=== PATIENT | male | born 1955 | race Caucasian/White ===

== ENCOUNTER 2016-06-07 21:39 | Inpatient (IN) | payer BC ==
[~2016-06-07] VITALS: Ht 172.7 cm; Wt 81.8 kg
[~2016-06-07 21:39] MED LIST: ADV25050 INH; ALBU8.5H3 INH; ASPI81TA3 PO; FURO-110 PO; GABA300C16 PO; LANT3I SC; LISI20TA11 PO; METF500T PO; METO25TA7 PO; PRED20TA PO
[2016-06-07 22:00] VITALS: BP 174/75; PULSE 98; RESP 18
[2016-06-07 22:12] VITALS: PULSE 100
[2016-06-07] MEDS: SOD CHLORIDE 0.9% 1,000 ML IV SCH (22:34)
[2016-06-07 23:00] VITALS: Ht 172.7 cm; Wt 81.8 kg
[2016-06-07] MEDS ORDERED: FUROSEMIDE 40 MG INJ IV ONE (23:00)
[2016-06-07] MEDS ORDERED: DOCUSATE SODIUM 100 MG CAP PO PRN (23:00)
[2016-06-07] MEDS ORDERED: ONDANSETRON 4 MG INJ IV PRN (23:00)
[2016-06-07] MEDS ORDERED: GLUCOSE GEL 15 GRAM TUBE BUCCAL PRN (23:00)
[2016-06-07] MEDS ORDERED: ALBUTEROL/IPRATROPIUM (NEB) 3 ML AMP HHN PRN (23:00)
[2016-06-07] MEDS ORDERED: NACL 0.9% 3 ML SYG IV SCH (23:00)
[2016-06-07] MEDS ORDERED: NITROGLYCERIN (SL) 0.4 MG TAB SL PRN (23:00)
[2016-06-07] MEDS ORDERED: morphine 2 MG INJ IV PRN (23:00)
[2016-06-07] MEDS ORDERED: GLUCAGON 1 MG INJ IM PRN (23:00)
[2016-06-07] MEDS ORDERED: GLUCOSE GEL 15 GRAM TUBE PO PRN ×2 (23:00)
[2016-06-07] MEDS ORDERED: LORAZEPAM 2 MG INJ IV PRN (23:00)
[2016-06-07] MEDS ORDERED: DEXTROSE 50% 50 ML SYRINGE IV PRN ×2 (23:00)
--- NOTE | 2016-06-07 23:15 | HP ---
Date/Time of Note Date/Time of Note DATE: 06/07/16 TIME: 22:41 Assessment/Plan VTE Prophylaxis VTE Prophylaxis Intervention: heparin Assessment/Plan Assessment/Plan 61 yo male with a past medical history of type II DM, recurrent pleural effusions, essential hypertension, diabetic neuropathy, cardiomyopathy with EF of 60%, CAD, CHF with diastolic dysfunction, who presents with shortness of breath 1 week duration. 1. Acute hypoxemic respiratory failure - 2/2 to #2/3, will admit the patient to telemetry, cycle cardiac marker, recheck ECHO, consult Pulm/cardio/CT surgery, ABG in am, thoracentesis in am 2. Large right recurrent pleural effusion - thoracentesis in am, supplemental oxygen, possible need for decortication/VATS 3. COPD exac - will continue with duonebs, antibiotics as tolerated 4. CHF - diastolic dysfunction - possible acute on chronic exacerbation - lasix as tolerated 5. Type II DM - ISS, hgba1c, lantus 6. Essential hypertension - uncontrolled, continue with home medications, aspirin 7. Diabetic neuropathy - continue with gabapentin 8. Cardiomyopathy - repeat echo 9. GI ppx - pepcid 10. DVT ppx - heparin answered all of his questions, as per clinical course. this history and physical took greater then 45 minutes to complete HPI/ROS Admit Date/Time Admit Date/Time Jun 07, 2016 at 21:39 Hx of Present Illness 61 yo male with a past medical history of type II DM, recurrent pleural effusions, essential hypertension, diabetic neuropathy, cardiomyopathy with EF of 60%, CAD, CHF with diastolic dysfunction, who presents with shortness of breath 1 week duration. He states that it's progressively getting worse, was admitted in 04/2016 for the same reason. At time, he had to undergo a right thoracentesis. He also complains of pleuritic chest pain, fevers/chills, nausea with vomiting NBNB multiple times, and malaise. Otherwise denies any dizziness, loss of consciousness, cardiac chest pain or other constitutional symptoms. The patient went to a [facility] and was transferred here for insurance purposes. Labs: Gluc 164, BNP 583 CTA chest: negative for PE, right large pleural effusion with compressive consolidation, left minimal pleural effusion, atherosclerotic disease noted ECHO 02/08/16 Conclusions 1. Normal left ventricular cavity size. Mild concentric left ventricular hypertrophy. Ejection fraction is visually estimated at 60 %. 2. Normal right ventricular size. Normal right ventricular systolic function. 3. Mitral valve leaflets appear mildly thickened. Mild mitral annular calcification, trace mitral regurgitation. 4. Normal appearance of the aortic valve. No significant aortic stenosis or insufficiency. 5. Normal appearance of the tricuspid valve. Estimated peak PA systolic pressure 47 mmHg. There is mild tricuspid regurgitation. 6. Normal pericardium with no significant pericardial effusion. ROS 14 point review of systems completed, please refer to HPI for any positive findings PMH/Family/Social Past Medical History cardiomyopathy - EF 60%, recurrent right pleural effusion Medical History: congestive heart failure, coronary artery disease, diabetes, hypertension Past Surgical History s/p thoracentesis Family History Significant Family History: no pertinent family hx Social History Alcohol Use: none Smoking Status: Former smoker Drug Use: none Exam/Review of Systems Exam Exam Gen Mike: mild to moderate respiratory distress, AAOx4 HEENT: NC/AT, PERRLA, EOMI, no pharyngeal erythema, no tonsillar exudates, no lymphadenopathy, no JVD, no carotid bruits NECK: supple, no thyromegaly THORAX: symmetrical, no obvious deformities CV: S1S2, RRR, no M/G/R Lungs: right lung no aeration, left lung scattered rhonchi, with basilar crackles Abd: soft, NT/ND, +BS, no rebound, no guarding, neg HSM EXT: trace edema, no ecchymosis, no clubbing, FROM Neuro: CN II-XII grossly intact, no focal deficits Psych: good mentation, alert and oriented, good mood and affect Skin: C/D/I Medications Medications Current Medications Sodium Chloride (NS) 1,000 ml @ 30 mls/hr Q24H IV ; Start 06/07/16 at 22:34; Status UNV Lorazepam (Ativan) 0.5 mg Q6H PRN IV ANXIETY; Start 06/07/16 at 23:00; Status UNV Ondansetron HCl (Zofran Inj) 4 mg Q6H PRN IV NAUSEA AND/OR VOMITING; Start at 23:00; Status UNV Furosemide (Lasix) 40 mg ONCE ONCE IV ; Start 06/07/16 at 23:00; Stop 06/07/16 at 23:01; Status UNV Nitroglycerin (Nitroglycerin (Sl Tab) 0.4 Mg) 1 tab Q5M PRN SL CHEST PAIN; Start 06/07/16 at 23:00; Status UNV Acetaminophen (Tylenol Tab) 650 mg Q6H PRN PO PAIN LEVEL 1-3 OR FEVER; Start at 23:00; Status UNV Morphine Sulfate (morphine) 2 mg Q4H PRN IV PAIN LEVEL 7-10; Start 06/07/16 at 23:00; Status UNV Docusate Sodium (Colace) 100 mg Q12H PRN PO CONSTIPATION; Start 06/07/16 at 23: 00; Status UNV Famotidine (Pepcid Iv) 20 mg Q12 IV ; Start 06/08/16 at 09:00; Status UNV Heparin Sodium (Porcine) (Heparin (5000 Units/0.5 ml)) 5,000 unit Q12 SC ; Start 06/08/16 at 09:00; Status UNV Miscellaneous Information (* Miscellaneous Pharmacy Order) HYPOGLYCEMIA PROTOCOL w... ONCE ONCE XX ; Start 06/07/16 at 23:00; Stop 06/07/16 at 23:01; Status UNV Miscellaneous Information (* Miscellaneous Pharmacy Order) Discontinue Glyburide , Glipizide,... ONCE ONCE XX ; Start 06/07/16 at 23:00; Stop 06/07/16 at 23:01 ; Status UNV Miscellaneous Information (* Miscellaneous Pharmacy Order) Discontinue all previ... ONCE ONCE XX ; Start 06/07/16 at 23:00; Stop 06/07/16 at 23:01; Status UNV Aspirin (Aspirin) 81 mg DAILY PO ; Start 06/08/16 at 09:00; Status UNV Furosemide (Lasix) 40 mg DAILY PO ; Start 06/08/16 at 09:00; Status UNV Gabapentin (Neurontin) 300 mg TID PO ; Start 06/08/16 at 09:00; Status UNV DEREJE MAYORGA MD Jun 07, 2016 22:51
[2016-06-07 23:26] LABS: TROPONIN-I 0.027 ng/ml (0.00-0.12)
[2016-06-07 23:28] LABS: CK-MB 2.57 ng/ml (0.0-2.4)
[2016-06-07 23:44] LABS: MAGNESIUM 1.4 mg/dl (1.7-2.5)
[2016-06-07 23:45] LABS: CHOL/HDL RATIO 3.4 RATIO
[2016-06-08] VITALS (13 sets, daily range): BP systolic 102–159; BP diastolic 51–78; PULSE 87–105; RESP 16–20
[2016-06-08 00:15] LABS: THYROID STIMULATING HORMONE 1.1 MIU/L (0.465-4.680)
[2016-06-08] MEDS: ACCUCHECK XX SCH (02:00)
[2016-06-08] MEDS ORDERED: MAGNESIUM SULFATE 3 GM in SOD CHLORIDE 0.9% 100 ML IVPB ONE (03:00)
[2016-06-08 06:31] LABS: INR 1.06; PROTIME 13.8 Sec (12.2-14.2); PT RATIO 1.1
[2016-06-08 06:32] LABS: PARTIAL THROMBOPLASTIN TIME 32.1 Sec (25.0-35.0)
[2016-06-08 06:39] LABS: BASOPHILS % 0.2 % (0.0-2.0); HEMATOCRIT 37.6 % (42.0-52.0); HEMOGLOBIN 12.7 g/dl (14.0-18.0); LYMPHOCYTES # 0.7 10^3/ul (0.8-2.9); LYMPHOCYTES % 9.1 % (15.0-51.0); MEAN CORPUSCULAR HEMOGLOBIN 28.4 pg (29.0-33.0); MEAN CORPUSCULAR HGB CONC 33.9 g/dl (32.0-37.0); MEAN CORPUSCULAR VOLUME 83.7 fl (82.0-101.0); MEAN PLATELET VOLUME 8.8 fl (7.4-10.4); MONOCYTES % 0.5 % (0.0-11.0); NEUTROPHIL # 6.9 10^3/ul (1.6-7.5); NEUTROPHILS % 90.2 % (39.0-77.0); PLATELET COUNT 277 10^3/UL (140-440); RED BLOOD COUNT 4.49 10^6/ul (4.70-6.10); RED CELL DISTRIBUTION WIDTH 14.2 % (11.5-14.5); UNCORRECTED WBC 7.7 10^3/ul (4.8-10.8); WHITE BLOOD COUNT 7.7 10^3/ul (4.8-10.8)
[2016-06-08 06:43] LABS: POTASSIUM 4.2 mmol/L (3.5-5.1)
[2016-06-08 06:45] LABS: CREATININE 0.71 mg/dl (0.61-1.24)
[2016-06-08 06:46] LABS: CALCIUM 9.4 mg/dl (8.4-10.2)
[2016-06-08 06:54] LABS: CONDITION 1; LH ANALYZER COMMENTS 1
[2016-06-08 07:46] LABS: CK-MB 2.42 ng/ml (0.0-2.4); TROPONIN-I 0.024 ng/ml (0.00-0.12)
[2016-06-08] MEDS: SALMETEROL/FLUTICASONE 250/50 INHA INH SCH ×2 (08:46→21:31)
[2016-06-08] MEDS: GABAPENTIN 300 MG CAP PO SCH ×3 (08:46→21:33)
[2016-06-08] MEDS: ASPIRIN 81 MG TAB PO SCH (08:47)
[2016-06-08] MEDS: LISINOPRIL 20 MG TAB PO SCH (08:47)
[2016-06-08] MEDS: METOPROLOL (XL) 25 MG TAB PO SCH ×2 (08:48→21:33)
[2016-06-08] MEDS: INSULIN ASPART [NOVOLOG] 3 ML PEN SC SCH ×4 (08:54→21:42)
[2016-06-08] MEDS: FAMOTIDINE 20 MG INJ IV SCH ×2 (09:00→21:31)
[2016-06-08] MEDS: HEPARIN 5,000 UNIT/0.5 ML SYG SC SCH ×2 (09:00→22:19)
[2016-06-08] MEDS ORDERED: FUROSEMIDE 20 MG TAB PO SCH (09:00)
--- NOTE | 2016-06-08 13:25 | CONS ---
DATE OF ADMISSION: 06/07/2016 DATE OF CONSULTATION: PULMONARY CONSULTATION REASON FOR CONSULTATION: Shortness of breath. Thank you, Dr. Blake, for this consultation. HISTORY OF PRESENT ILLNESS: This is a 61-year-old gentleman with what appears to be, history of con gestive cardiac failure who presents with several-day history of increasing shortness of breath, ort hopnea, PND, and found to be in congestive cardiac failure on this admission requiring possible thor acentesis. Says he has shortness of breath on exertion. Denies any fever, chills. He has orthopne a and PND. No weight loss, no hemoptysis or hematemesis. PAST MEDICAL HISTORY: Type 2 diabetes, congestive cardiac failure with preserved ejection fraction, diastolic dysfunction, hypertension, hyperlipidemia. MEDICATIONS: Per chart. ALLERGIES: NONE. SOCIAL HISTORY: Nonsmoker, no alcohol, no history of drug use. FAMILY HISTORY: Noncontributory. SYSTEMS REVIEW: A 12-point review of systems was negative other than that mentioned above. PHYSICAL EXAMINATION: GENERAL: Well-nourished, well-developed [place] gentleman, comfortable at rest, no acute distress. VITAL SIGNS: Currently afebrile, pulse is 87, blood pressure 140/65, O2 saturation 96% on FIO2 of 2 L. NECK: Supple. No JVD or lymphadenopathy. CARDIAC: S1, S2, no added sounds or murmurs. CHEST: Diminished air entry bilaterally. ABDOMEN: Soft, nontender. No guarding or rebound. EXTREMITIES: No cyanosis, clubbing, edema. NEUROLOGIC: Generalized weakness. LABORATORY DATA: White count 7.7, hemoglobin is 12.7, platelets 277, glucose elevated at 288. Chem istry within normal limits. IMPRESSION AND PLAN: 1. Dyspnea, likely secondary to congestive cardiac failure. 2. Diastolic dysfunction. 3. Possible noncompliance. The patient will require: 1. Diuretics. 2. Cardiology evaluation. 3. Possible thoracentesis. 4. DVT and GI prophylaxis. Dictated By: KEYSHA JONES/DANIAL Conf#: [id number] DID#: [id number]
--- NOTE | 2016-06-08 15:22 | PN ---
Date/Time of Note Date/Time of Note DATE: 06/08/16 TIME: 15:20 Assessment/Plan VTE Prophylaxis VTE Prophylaxis Intervention: heparin Lines/Catheters IV C[facility]ter Type [facility]from [facility] Urinary Cath still in place: No Assessment/Plan Chief Complaint/Hosp Course 1. Acute hypoxemic respiratory failure - 2/2 to #2/3 -cycle cardiac marker, recheck ECHO, consult Pulm/cardio, ABG in am, thoracentesis 2. Large right recurrent pleural effusion - thoracentesis, supplemental oxygen, possible need for decortication/VATS, D/W Pulm 3. COPD exac - will continue with duonebs, antibiotics as tolerated 4. CHF - diastolic dysfunction - possible acute on chronic exacerbation - lasix as tolerated 5. Type II DM - ISS, hgba1c, lantus 6. Essential hypertension - uncontrolled, continue with home medications, aspirin 7. Diabetic neuropathy - continue with gabapentin 8. Cardiomyopathy - repeat echo 9. GI ppx - pepcid 10. DVT ppx - heparin Problems: Subjective 24 Hr Interval Summary Constitutional: no complaints Exam/Review of Systems Vital Signs Vitals Vital Signs Date Time Temp Pulse Resp B/P Pulse Ox O2 Delivery O2 Flow Rate FiO2 06/08/16 12:39 87 06/08/16 12:22 98.2 20 140/65 92 06/08/16 00:03 Aerosol 28 06/08/16 00:03 2.0 Intake and Output 06/07/16 06/07/16 06/08/16 15:00 23:00 07:00 Output Total 700 ml Balance -700 ml Exam Constitutional: alert, oriented Respiratory: clear to auscultation Cardiovascular: regular rate and rhythm Gastrointestinal: soft, No distended Musculoskeletal: nl extremities to inspection Results Result Diagram: 06/08/16 0540 06/08/16 0540 Results 24 hrs Laboratory Tests Test 06/07/16 22:50 06/08/16 02:03 06/08/16 05:40 06/08/16 08:00 Cholesterol Level 157 Cholesterol/HDL Ratio 3.4 Creatine Kinase 57 48 Creatine Kinase Index 4.5 5.0 Creatinine Kinase MB (Mass) 2.57 H 2.42 H HDL Cholesterol 46 Hemoglobin A1c 8.8 H LDL Cholesterol, Calculated 92 Magnesium Level 1.4 L Thyroid Stimulating Hormone (TSH) 1.100 Triglycerides Level 96 Troponin I 0.027 0.024 Bedside Glucose 268 H 348 H Activated Partial Thromboplast Time 32.1 Anion Gap 16 Basophils # 0.0 Basophils % 0.2 Blood Morphology Comment Blood Urea Nitrogen 18 Calcium Level 9.4 Carbon Dioxide Level 30 Chloride Level 98 Creatinine 0.71 Eosinophils # 0.0 Eosinophils % 0.0 Glucose Level 325 H Hematocrit 37.6 L Hemoglobin 12.7 L INR International Normalized Ratio 1.06 Lymphocytes # 0.7 L Lymphocytes % 9.1 L Mean Corpuscular Hemoglobin 28.4 L Mean Corpuscular Hemoglobin Concent 33.9 Mean Corpuscular Volume 83.7 Mean Platelet Volume 8.8 Monocytes # 0.0 L Monocytes % 0.5 Neutrophils # 6.9 Neutrophils % 90.2 H Nucleated Red Blood Cells # 0.0 Nucleated Red Blood Cells % 0.0 Platelet Count 277 Potassium Level 4.2 Prothrombin Time 13.8 Prothrombin Time Ratio 1.1 Red Blood Count 4.49 L Red Cell Distribution Width 14.2 Sodium Level 140 White Blood Count 7.7 # Test 06/08/16 12:08 Bedside Glucose 288 H Medications Medications Current Medications Sodium Chloride (NS) 1,000 ml @ 30 mls/hr Q24H IV Last administered on 22:34; Admin Dose 30 MLS/HR; Start 06/07/16 at 22:34 Lorazepam (Ativan) 0.5 mg Q6H PRN IV ANXIETY; Start 06/07/16 at 23:00 Ondansetron HCl (Zofran Inj) 4 mg Q6H PRN IV NAUSEA AND/OR VOMITING; Start at 23:00 Nitroglycerin (Nitroglycerin (Sl Tab) 0.4 Mg) 1 tab Q5M PRN SL CHEST PAIN; Start 06/07/16 at 23:00 Acetaminophen (Tylenol Tab) 650 mg Q6H PRN PO PAIN LEVEL 1-3 OR FEVER; Start at 23:00 Morphine Sulfate (morphine) 2 mg Q4H PRN IV PAIN LEVEL 7-10; Start 06/07/16 at 23:00 Docusate Sodium (Colace) 100 mg Q12H PRN PO CONSTIPATION; Start 06/07/16 at 23: 00 Famotidine (Pepcid Iv) 20 mg Q12 IV Last administered on 06/08/16 09:00; Admin Dose 20 MG; Start 06/08/16 at 09:00 Heparin Sodium (Porcine) (Heparin (5000 Units/0.5 ml)) 5,000 unit Q12 SC ; Start 06/08/16 at 09:00 Aspirin (Aspirin) 81 mg DAILY PO Last administered on 06/08/16 08:47; Admin Dose 81 MG; Start 06/08/16 at 09:00 Gabapentin (Neurontin) 300 mg TID PO Last administered on 06/08/16 12:36; Admin Dose 300 MG; Start 06/08/16 at 09:00 Insulin Glargine (Lantus) 30 unit QHS SC ; Start 06/08/16 at 21:00 Lisinopril (Zestril) 20 mg DAILY PO Last administered on 06/08/16 08:47; Admin Dose 20 MG; Start 06/08/16 at 09:00 Metoprolol Succinate (Toprol Xl) 25 mg BID PO Last administered on 06/08/16 08 :48; Admin Dose 25 MG; Start 06/08/16 at 09:00 Salmeterol Xinafoate/ Fluticasone (Advair 250/50 Diskus) 1 inh BID INH Last administered on 06/08/16 08:46; Admin Dose 1 INH; Start 06/08/16 at 09:00 Diagnostic Test (Pha) (Accucheck) 1 ea 02 XX ; Start 06/08/16 at 02:00 Miscellaneous Information 1 ea NOTE XX ; Start 06/07/16 at 23:00 Glucose (Glutose) 15 gm Q15M PRN PO DECREASED GLUCOSE; Start 06/07/16 at 23:00 Glucose (Glutose) 22.5 gm Q15M PRN PO DECREASED GLUCOSE; Start 06/07/16 at 23: 00 Dextrose (D50w Syringe) 25 ml Q15M PRN IV DECREASED GLUCOSE; Start 06/07/16 at 23:00 Dextrose (D50w Syringe) 50 ml Q15M PRN IV DECREASED GLUCOSE; Start 06/07/16 at 23:00 Glucagon (Glucagen) 1 mg Q15M PRN IM DECREASED GLUCOSE; Start 06/07/16 at 23:00 Glucose (Glutose) 15 gm Q15M PRN BUCCAL DECREASED GLUCOSE; Start 06/07/16 at 23 :00 Hydralazine HCl (Apresoline) 10 mg Q6H PRN IV sbp > 160; Start 06/07/16 at 23: 30 JOSE MAZARIEGOS Jun 08, 2016 15:22
[2016-06-08] MEDS ORDERED: LIDOCAINE 1% (MPF) 5 ML VIAL ONE (17:19)
--- NOTE | 2016-06-08 17:33 | RADRPT ---
PROCEDURE: US guided right thoracentesis. CLINICAL INDICATION: Shortness of breath. Right pleural effusion. TECHNIQUE: Prior to the procedure, informed consent was obtained. The risks, benefits, and alternatives were e xplained to the patient or the patient's family, including but not limited to bleeding, infection, p ain, visceral or vascular damage, shock, pneumothorax, chest tube placement, air embolism, and . The patient or the patient's family understood the risks and the alternatives and wished to proce ed with the study. Informed written consent was obtained. A procedural pause was performed. The patient's name, date of , and procedure to be performed were verified. Ultrasound of the right hemithorax was performed in the axial and sagittal planes. A right pleural e ffusion is noted. Utilizing ultrasound guidance, optimal location for entry to the pleural cavity wa s ascertained. The overlying skin was prepped and draped in the usual sterile fashion. Approximate ly 10 ml of 1% Xylocaine was injected locally for pain control. Using ultrasound guidance, a 5-Fren Yueh catheter was introduced into the right pleural space without difficulty. Fluid was aspirated . COMPARISON: None. FINDINGS: Initial ultrasound demonstrates fluid in the right pleural space. Approximately 2.0 liters of serou s fluid was aspirated and sent to the laboratory. Postprocedure ultrasound of the right hemithorax d emonstrates a large amount of residual right pleural fluid. IMPRESSION: 1. Satisfactory ultrasound-guided right thoracentesis. 2. Large amount of residual fluid following removal of 2 liters from the right pleural space. RPTAT: QQ .Kayden Cervantes MD, MD Date Time Electronically viewed and signed by .Kayden Ceravntes MD, MD on 06/08/2016 17:33 .R/
--- NOTE | 2016-06-08 17:57 | RADRPT ---
PROCEDURE: XR Chest. CLINICAL INDICATION: Shortness of breath. Post right thoracentesis. TECHNIQUE: Single frontal view. COMPARISON: 04/15/2016. FINDINGS: There is mild right basilar atelectasis and a small right pleural effusion. The left lung is clear and there is no left pleural effusion. The heart is enlarged. There is calcification in the aorta consistent with atherosclerosis. There is no pneumothorax. IMPRESSION: 1. No pneumothorax following right thoracentesis. 2. Right basilar atelectasis and small right pleural effusion. RPTAT: QQ .Kayden Cervantes MD, MD Date Time Electronically viewed and signed by .Kayden Cervantes MD, on 06/08/2016 17:57 .R/
[2016-06-08] MEDS: FUROSEMIDE 40 MG INJ IV SCH (18:07)
[2016-06-08] MEDS: INSULIN GLARGINE [LANtus] 3 ML PEN SC SCH (21:37)
[2016-06-08] MEDS: ACETAMINOPHEN 325 MG TAB PO PRN (21:49)
[2016-06-08 21:50] LABS: FLUID LD 271 U/L; FLUID TYPE PLEURAL FLUID
[2016-06-08] MEDS: SOD CHLORIDE 0.9% 1,000 ML IV SCH (22:34)
[2016-06-09] VITALS (13 sets, daily range): BP systolic 107–187; BP diastolic 52–90; PULSE 81–92; RESP 16–20
[2016-06-09] MEDS: ACCUCHECK XX SCH (02:12)
--- NOTE | 2016-06-09 03:09 | CONS ---
DATE OF ADMISSION: 06/07/2016 DATE OF CONSULTATION: 06/08/2016 REASON FOR CONSULTATION: Shortness of breath, congestive heart failure. REQUESTING PHYSICIAN: Dr. Arcadio De La Cruz from the hospitalist service. HISTORY OF PRESENT ILLNESS: Mr. Shukla is a 61-year-old male [facility] with a history of diabetes mellitus, recurrent pleural effusions, hypertension, diabetic neuro mart, cardiomyopathy with last known ejection fraction 60% by echo February 2016 with diastolic dysf unction who initially presented with complaints of worsening shortness of breath and foot pain. Upo n arrival in the emergency department, temperature 98.2, blood pressure 174/75, pulse 98, respirator y rate 18, saturating 97%. The patient's labs revealed white count 7.7, hemoglobin 12.7, platelet c ount 277. Sodium of 140, potassium 4.2, creatinine 0.7, BUN of 18, glucose of 348. Troponin negati ve. LDL 92, HDL 46. TSH 1.1, INR of 1.0. The patient underwent a chest x-ray revealing no pneumot horax and right basilar atelectasis, small right pleural effusion status post thoracentesis, which r emoved 2 liters of fluid in the right pleural space. The patient's electrocardiogram is not availab le for my review at this time. The patient was subsequently admitted to the floor and since admit t o floor has mild shortness of breath and denies chest pain. PAST MEDICAL HISTORY: As above in HPI. MEDICATIONS CURRENTLY IN HOSPITAL: 1. Lantus subcu q. 8. 2. Lasix 40 mg IV b.i.d. 3. Pepcid 20 mg IV q. 12. 4. Aspirin 81 mg daily. 5. Gabapentin 300 mg p.o. t.i.d. 6. Zestril 20 mg daily. 7. Toprol-XL 25 mg p.o. b.i.d. 8. Advair Diskus. 9. Insulin sliding scale. 10. Hydralazine p.r.n. 11. Ativan p.r.n. 12. Zofran p.r.n. 13. Morphine. 14. DuoNeb p.r.n. ALLERGIES: NO KNOWN DRUG ALLERGIES. SOCIAL HISTORY: Positive tobacco, social ETOH, no illicit drug use. FAMILY HISTORY: No history of sudden cardiac or early CAD. REVIEW OF SYSTEMS: As above in HPI. CONSTITUTIONAL: No fevers, chills. PULMONARY: Shortness of breath. CARDIOVASCULAR: Congestive heart failure. GASTROINTESTINAL: No vomiting. GENITOURINARY: No hematuria. MUSCULOSKELETAL: Degenerative joint disease. PSYCHIATRIC: The patient has depression. NEUROLOGIC: No documented history of CVA. ENDOCRINE: Diabetes mellitus. PHYSICAL EXAMINATION: VITAL SIGNS: Temperature 97.8, blood pressure 159/78, pulse 85, respiratory rate 20, sat 92%. GENERAL: The patient is alert, awake, complaining of shortness of breath. NECK: JVP approximately 9 cm of water. CHEST: Decreased breath sounds, right greater than left. HEART: Regular rate and rhythm. Normal S1, increased S2, I/ systolic murmur. ABDOMEN: Positive bowel sounds, soft. EXTREMITIES: No pitting edema, 1+ pulses bilaterally, posterior tibial. LABORATORIES: As above in HPI with since admit LDL 92, HDL 46. TSH within normal limits at 1.1. IMAGING STUDIES: As above in HPI. No further imaging studies for my review at this time. ECG: No electrocardiograms for my review at this time. IMPRESSION: 1. 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 2. Hypertension, control. 3. Pleural effusions, recurrent, status post paracentesis. 4. History of cardiomyopathy, improved by most recent echo. 5. Chronic obstructive pulmonary disease. 6. Diabetes mellitus with diabetic neuropathy, complaints of foot pain. 7. Shortness of breath secondary to congestive heart failure and pleural effusion. 8. Anemia. RECOMMENDATIONS: 1. At this time, would maintain the patient on telemetry monitoring to follow rhythm and rate contr ol closely. 2. Continue the patient's Lasix diuresis. Follow strict I's and O's to grade diuresis closely. 3. Continue the patient's aspirin for prophylaxis against cardiovascular events. 4. Additionally, continue the patient's Toprol-XL and to control blood pressure and heart rat e. 5. We will continue the patient's bronchodilators additionally following respiratory status closely . 6. Follow up reaccumulation of pleural fluid. 7. Follow up the echo that has been ordered for repeat assessment of ejection fraction. 8. Check a fasting lipid panel for general risk stratification. 9. Check a BNP to further assess the patient's current volume status. 10. Send his troponin repeat for patient's rule out for myocardial infarction. Thank you for allowing me to take part in the care of this patient. I will continue to follow along very closely with you. Further recommendations will be made as the patient progresses through his inpatient hospital clinical course. Dictated By: JOSÉ REED/DANIAL Conf#: [id number] DID#: [id number]
[2016-06-09] MEDS: FUROSEMIDE 40 MG INJ IV SCH ×2 (05:40→18:35)
[2016-06-09] MEDS: ASPIRIN 81 MG TAB PO SCH (08:06)
[2016-06-09] MEDS: SALMETEROL/FLUTICASONE 250/50 INHA INH SCH ×2 (08:06→20:43)
[2016-06-09] MEDS: FAMOTIDINE 20 MG INJ IV SCH (08:07)
[2016-06-09] MEDS: GABAPENTIN 300 MG CAP PO SCH ×3 (08:07→20:44)
[2016-06-09] MEDS: LISINOPRIL 20 MG TAB PO SCH (08:08)
[2016-06-09] MEDS: METOPROLOL (XL) 25 MG TAB PO SCH ×2 (08:08→20:44)
[2016-06-09] MEDS: HEPARIN 5,000 UNIT/0.5 ML SYG SC SCH ×2 (08:18→20:45)
[2016-06-09 08:24] LABS: POTASSIUM 3.8 mmol/L (3.5-5.1)
[2016-06-09 08:26] LABS: BASOPHILS % 0.3 % (0.0-2.0); EOSINOPHILS % 0.2 % (0.0-7.0); HEMATOCRIT 35.7 % (42.0-52.0); HEMOGLOBIN 11.7 g/dl (14.0-18.0); LYMPHOCYTES # 2.4 10^3/ul (0.8-2.9); LYMPHOCYTES % 19.8 % (15.0-51.0); MEAN CORPUSCULAR HEMOGLOBIN 28.3 pg (29.0-33.0); MEAN CORPUSCULAR HGB CONC 32.7 g/dl (32.0-37.0); MEAN CORPUSCULAR VOLUME 86.5 fl (82.0-101.0); MEAN PLATELET VOLUME 8.5 fl (7.4-10.4); MONOCYTE # 0.7 10^3/ul (0.3-0.9); MONOCYTES % 5.4 % (0.0-11.0); NEUTROPHIL # 8.9 10^3/ul (1.6-7.5); NEUTROPHILS % 74.3 % (39.0-77.0); PLATELET COUNT 273 10^3/UL (140-440); RED BLOOD COUNT 4.13 10^6/ul (4.70-6.10)
[2016-06-09 08:27] LABS: CREATININE 0.86 mg/dl (0.61-1.24)
[2016-06-09 08:28] LABS: CALCIUM 9.2 mg/dl (8.4-10.2); MAGNESIUM 1.8 mg/dl (1.7-2.5); PHOSPHORUS 4.2 mg/dl (2.5-4.9)
[2016-06-09 08:50] LABS: CONDITION 1
[2016-06-09] MEDS: INSULIN ASPART [NOVOLOG] 3 ML PEN SC SCH ×4 (10:31→20:47)
[2016-06-09] MEDS: ACETAMINOPHEN 325 MG TAB PO PRN (12:22)
--- NOTE | 2016-06-09 13:35 | RADRPT ---
PROCEDURE: XR Chest. CLINICAL INDICATION: Shortness of breath. TECHNIQUE: Single frontal view. COMPARISON: 06/08/2016. FINDINGS: There is air space disease in the right mid and lower lung zones consistent with atelectasis or pneu monia, worse than seen previously. The left lung is clear. There is mild interstitial disease bila terally consistent with pulmonary edema. The heart is enlarged. There is calcification in the aorta consistent with atherosclerosis. There is a small right pleural effusion. There is no left pleural effusion. There is no pneumothorax. IMPRESSION: 1. Worse appearance of the right lung. 2. New pulmonary edema. 3. No other change from 06/08/2016. RPTAT: QQ .Kayden Cervantes MD, MD Date Time Electronically viewed and signed by .Kayden Cervantes MD, MD on 06/09/2016 13:35 .R/
--- NOTE | 2016-06-09 15:26 | PN ---
Date/Time of Note Date/Time of Note DATE: 06/09/16 TIME: 15:17 Assessment/Plan VTE Prophylaxis VTE Prophylaxis Intervention: heparin Lines/Catheters IV C[facility]ter Type (from [facility] Urinary Cath still in place: No Assessment/Plan Chief Complaint/Hosp Course 1. Acute hypoxemic respiratory failure - 2/2 to #2/3 -Pulm/cardio consults appreciated -cont Diuresis 2. Large right recurrent pleural effusion - s/p thoracentesis with recurrent effusion -cont Lasix, F/U with fluid Cx and Cytology -US Abd to R/O Cirrhosis and Hepatic Hydrothorax 3. COPD exac - will continue with duonebs, antibiotics as tolerated 4. CHF - diastolic dysfunction - possible acute on chronic exacerbation - lasix as tolerated 5. Type II DM - ISS, hgba1c, lantus 6. Essential hypertension - uncontrolled, continue with home medications, aspirin 7. Diabetic neuropathy - continue with gabapentin PPX- heparin Problems: Subjective 24 Hr Interval Summary Respiratory: shortness of breath Exam/Review of Systems Vital Signs Vitals Vital Signs Date Time Temp Pulse Resp B/P Pulse Ox O2 Delivery O2 Flow Rate FiO2 06/09/16 12:22 83 06/09/16 11:42 98.1 20 166/81 94 06/09/16 04:34 2.0 06/08/16 00:03 Aerosol 28 Intake and Output 06/08/16 06/08/16 06/09/16 14:59 22:59 06:59 Intake Total 640 ml Output Total 1000 ml Balance -360 ml Exam Constitutional: alert Respiratory: clear to auscultation Cardiovascular: regular rate and rhythm Gastrointestinal: soft, No distended Musculoskeletal: nl extremities to inspection Results Result Diagram: 06/09/16 0650 06/09/16 0650 Results 24 hrs Laboratory Tests Test 06/08/16 17:30 06/08/16 18:02 06/08/16 21:30 06/09/16 02:07 Body Fluid Lactate Dehydrogenase 271 Body Fluid Type PLEURAL FLUID Bedside Glucose 279 H 254 H 203 Test 06/09/16 06:50 06/09/16 07:44 06/09/16 12:26 Anion Gap 15 Basophils # 0.0 Basophils % 0.3 Blood Morphology Comment Blood Urea Nitrogen 31 #H Calcium Level 9.2 Carbon Dioxide Level 33 H Chloride Level 100 Creatinine 0.86 Eosinophils # 0.0 Eosinophils % 0.2 Glucose Level 146 # Hematocrit 35.7 L Hemoglobin 11.7 L Lymphocytes # 2.4 Lymphocytes % 19.8 Magnesium Level 1.8 Mean Corpuscular Hemoglobin 28.3 L Mean Corpuscular Hemoglobin Concent 32.7 Mean Corpuscular Volume 86.5 Mean Platelet Volume 8.5 Monocytes # 0.7 Monocytes % 5.4 Neutrophils # 8.9 H Neutrophils % 74.3 Nucleated Red Blood Cells # 0.0 Nucleated Red Blood Cells % 0.0 Phosphorus Level 4.2 Platelet Count 273 Potassium Level 3.8 Red Blood Count 4.13 L Red Cell Distribution Width 14.0 Sodium Level 144 Troponin I 0.037 White Blood Count 12.0 #H Bedside Glucose 141 180 Medications Medications Current Medications Sodium Chloride (NS) 1,000 ml @ 30 mls/hr Q24H IV Last administered on 22:34; Admin Dose 30 MLS/HR; Start 06/07/16 at 22:34 Lorazepam (Ativan) 0.5 mg Q6H PRN IV ANXIETY; Start 06/07/16 at 23:00 Ondansetron HCl (Zofran Inj) 4 mg Q6H PRN IV NAUSEA AND/OR VOMITING; Start at 23:00 Nitroglycerin (Nitroglycerin (Sl Tab) 0.4 Mg) 1 tab Q5M PRN SL CHEST PAIN; Start 06/07/16 at 23:00 Acetaminophen (Tylenol Tab) 650 mg Q6H PRN PO PAIN LEVEL 1-3 OR FEVER Last administered on 06/09/16 12:22; Admin Dose 650 MG; Start 06/07/16 at 23:00 Morphine Sulfate (morphine) 2 mg Q4H PRN IV PAIN LEVEL 7-10; Start 06/07/16 at 23:00 Docusate Sodium (Colace) 100 mg Q12H PRN PO CONSTIPATION; Start 06/07/16 at 23: 00 Heparin Sodium (Porcine) (Heparin (5000 Units/0.5 ml)) 5,000 unit Q12 SC Last administered on 06/09/16 08:18; Admin Dose 5,000 UNIT; Start 06/08/16 at 09:00 Aspirin (Aspirin) 81 mg DAILY PO Last administered on 06/09/16 08:06; Admin Dose 81 MG; Start 06/08/16 at 09:00 Gabapentin (Neurontin) 300 mg TID PO Last administered on 06/09/16 12:22; Admin Dose 300 MG; Start 06/08/16 at 09:00 Insulin Glargine (Lantus) 30 unit QHS SC Last administered on 06/08/16 21:37; Admin Dose 30 UNIT; Start 06/08/16 at 21:00 Lisinopril (Zestril) 20 mg DAILY PO Last administered on 06/09/16 08:08; Admin Dose 20 MG; Start 06/08/16 at 09:00 Metoprolol Succinate (Toprol Xl) 25 mg BID PO Last administered on 06/09/16 08 :08; Admin Dose 25 MG; Start 06/08/16 at 09:00 Salmeterol Xinafoate/ Fluticasone (Advair 250/50 Diskus) 1 inh BID INH Last administered on 06/09/16 08:06; Admin Dose 1 INH; Start 06/08/16 at 09:00 Diagnostic Test (Pha) (Accucheck) 1 ea 02 XX Last administered on 06/09/16 02: 12; Admin Dose 1 EA; Start 06/08/16 at 02:00 Miscellaneous Information 1 ea NOTE XX ; Start 06/07/16 at 23:00 Glucose (Glutose) 15 gm Q15M PRN PO DECREASED GLUCOSE; Start 06/07/16 at 23:00 Glucose (Glutose) 22.5 gm Q15M PRN PO DECREASED GLUCOSE; Start 06/07/16 at 23: 00 Dextrose (D50w Syringe) 25 ml Q15M PRN IV DECREASED GLUCOSE; Start 06/07/16 at 23:00 Dextrose (D50w Syringe) 50 ml Q15M PRN IV DECREASED GLUCOSE; Start 06/07/16 at 23:00 Glucagon (Glucagen) 1 mg Q15M PRN IM DECREASED GLUCOSE; Start 06/07/16 at 23:00 Glucose (Glutose) 15 gm Q15M PRN BUCCAL DECREASED GLUCOSE; Start 06/07/16 at 23 :00 Hydralazine HCl (Apresoline) 10 mg Q6H PRN IV sbp > 160; Start 06/07/16 at 23: 30 JOSE MAZARIEGOS Jun 09, 2016 15:26
--- NOTE | 2016-06-09 16:16 | CONS ---
Date/Time of Note Date/Time of Note DATE: 06/09/16 TIME: 16:10 Assessment/Plan Assessment/Plan Chief Complaint/Hosp Course IMPRESSION: 1. Congestive heart failure exacerbation, diastolic by most recent echo February 2016, acute on chronic. 2. Hypertension,control. 3. Pleural effusions, recurrent, status post paracentesis. 4. History of cardiomyopathy, improved by most recent echo. 5. Chronic obstructive pulmonary disease. 6. Diabetes mellitus with diabetic neuropathy, complaints of foot pain. 7. Shortness of breath secondary to congestive heart failure and pleural effusion. 8. Anemia. Recc: -Tele -Continue lasix -Continue BB and add acei to improve BP control -Continue bronchodilators and follow hgb closely Problems: Consultation Date/Type/Reason Admit Date/Time Jun 07, 2016 at 21:39 Initial Consult Date 06/09/2016 Type of Consultation: Cardiology Reason for Consultation sob Exam/Review of Systems Vital Signs Vitals Vital Signs Date Time Temp Pulse Resp B/P Pulse Ox O2 Delivery O2 Flow Rate FiO2 06/09/16 12:22 83 06/09/16 11:42 98.1 20 166/81 94 06/09/16 04:34 2.0 06/08/16 00:03 Aerosol 28 Intake and Output 06/08/16 06/08/16 06/09/16 15:00 23:00 07:00 Intake Total 640 ml Output Total 1000 ml Balance -360 ml Exam Review of Systems: CONSTITUTIONAL: No fevers, chills. PULMONARY: mild sob CARDIOVASCULAR: No chest pain/palpitations GASTROINTESTINAL: No nausea/vomiting. GENITOURINARY: No hematuria/dysuria. MUSCULOSKELETAL: No myagias/arthalgias. PSYCHIATRIC: The patient denies depression. NEUROLOGIC: No weakness Constitutional: alert, oriented Psych: no complaints Neck: jvd (9 cm water), supple Respiratory: diminished breath sounds (at bases/B) Cardiovascular: regular rate and rhythm Gastrointestinal: non-tender, soft Musculoskeletal: muscle tone (normal) Extremities: other (none) Results Result Diagram: 06/09/16 0650 06/09/16 0650 Results 24 hrs Laboratory Tests Test 06/08/16 17:30 06/08/16 18:02 06/08/16 21:30 06/09/16 02:07 Body Fluid Lactate Dehydrogenase 271 Body Fluid Type PLEURAL FLUID Bedside Glucose 279 H 254 H 203 Test 06/09/16 06:50 06/09/16 07:44 06/09/16 12:26 Anion Gap 15 Basophils # 0.0 Basophils % 0.3 Blood Morphology Comment Blood Urea Nitrogen 31 #H Calcium Level 9.2 Carbon Dioxide Level 33 H Chloride Level 100 Creatinine 0.86 Eosinophils # 0.0 Eosinophils % 0.2 Glucose Level 146 # Hematocrit 35.7 L Hemoglobin 11.7 L Lymphocytes # 2.4 Lymphocytes % 19.8 Magnesium Level 1.8 Mean Corpuscular Hemoglobin 28.3 L Mean Corpuscular Hemoglobin Concent 32.7 Mean Corpuscular Volume 86.5 Mean Platelet Volume 8.5 Monocytes # 0.7 Monocytes % 5.4 Neutrophils # 8.9 H Neutrophils % 74.3 Nucleated Red Blood Cells # 0.0 Nucleated Red Blood Cells % 0.0 Phosphorus Level 4.2 Platelet Count 273 Potassium Level 3.8 Red Blood Count 4.13 L Red Cell Distribution Width 14.0 Sodium Level 144 Troponin I 0.037 White Blood Count 12.0 #H Bedside Glucose 141 180 Medications Medications Current Medications Sodium Chloride (NS) 1,000 ml @ 30 mls/hr Q24H IV Last administered on 22:34; Admin Dose 30 MLS/HR; Start 06/07/16 at 22:34 Lorazepam (Ativan) 0.5 mg Q6H PRN IV ANXIETY; Start 06/07/16 at 23:00 Ondansetron HCl (Zofran Inj) 4 mg Q6H PRN IV NAUSEA AND/OR VOMITING; Start at 23:00 Nitroglycerin (Nitroglycerin (Sl Tab) 0.4 Mg) 1 tab Q5M PRN SL CHEST PAIN; Start 06/07/16 at 23:00 Acetaminophen (Tylenol Tab) 650 mg Q6H PRN PO PAIN LEVEL 1-3 OR FEVER Last administered on 06/09/16 12:22; Admin Dose 650 MG; Start 06/07/16 at 23:00 Morphine Sulfate (morphine) 2 mg Q4H PRN IV PAIN LEVEL 7-10; Start 06/07/16 at 23:00 Docusate Sodium (Colace) 100 mg Q12H PRN PO CONSTIPATION; Start 06/07/16 at 23: 00 Heparin Sodium (Porcine) (Heparin (5000 Units/0.5 ml)) 5,000 unit Q12 SC Last administered on 06/09/16 08:18; Admin Dose 5,000 UNIT; Start 06/08/16 at 09:00 Aspirin (Aspirin) 81 mg DAILY PO Last administered on 06/09/16 08:06; Admin Dose 81 MG; Start 06/08/16 at 09:00 Gabapentin (Neurontin) 300 mg TID PO Last administered on 06/09/16 12:22; Admin Dose 300 MG; Start 06/08/16 at 09:00 Insulin Glargine (Lantus) 30 unit QHS SC Last administered on 06/08/16 21:37; Admin Dose 30 UNIT; Start 06/08/16 at 21:00 Lisinopril (Zestril) 20 mg DAILY PO Last administered on 06/09/16 08:08; Admin Dose 20 MG; Start 06/08/16 at 09:00 Metoprolol Succinate (Toprol Xl) 25 mg BID PO Last administered on 06/09/16 08 :08; Admin Dose 25 MG; Start 06/08/16 at 09:00 Salmeterol Xinafoate/ Fluticasone (Advair 250/50 Diskus) 1 inh BID INH Last administered on 06/09/16 08:06; Admin Dose 1 INH; Start 06/08/16 at 09:00 Diagnostic Test (Pha) (Accucheck) 1 ea 02 XX Last administered on 06/09/16 02: 12; Admin Dose 1 EA; Start 06/08/16 at 02:00 Miscellaneous Information 1 ea NOTE XX ; Start 06/07/16 at 23:00 Glucose (Glutose) 15 gm Q15M PRN PO DECREASED GLUCOSE; Start 06/07/16 at 23:00 Glucose (Glutose) 22.5 gm Q15M PRN PO DECREASED GLUCOSE; Start 06/07/16 at 23: 00 Dextrose (D50w Syringe) 25 ml Q15M PRN IV DECREASED GLUCOSE; Start 06/07/16 at 23:00 Dextrose (D50w Syringe) 50 ml Q15M PRN IV DECREASED GLUCOSE; Start 06/07/16 at 23:00 Glucagon (Glucagen) 1 mg Q15M PRN IM DECREASED GLUCOSE; Start 06/07/16 at 23:00 Glucose (Glutose) 15 gm Q15M PRN BUCCAL DECREASED GLUCOSE; Start 06/07/16 at 23 :00 Hydralazine HCl (Apresoline) 10 mg Q6H PRN IV sbp > 160; Start 06/07/16 at 23: 30 JOSÉ GARCIA Jun 09, 2016 16:15
--- NOTE | 2016-06-09 16:47 | CONS ---
Date/Time of Note Date/Time of Note DATE: 06/09/16 TIME: 16:45 Consult Date/Type/Reason Admit Date/Time Jun 07, 2016 at 21:39 Initial Consult Date Type of Consultation: pulmonary Subjective Patient underwent thoracentesis with 2 L removed from right lung Repeat chest x-ray is morning shows increasing pulmonary edema possible worsening of right lung Clinically patient remained stable states his breathing has improved Objective Vital Signs Date Time Temp Pulse Resp B/P Pulse Ox O2 Delivery O2 Flow Rate FiO2 06/09/16 16:36 21 06/09/16 16:10 98.0 79 20 171/87 99 06/09/16 04:34 2.0 06/08/16 00:03 Aerosol Intake and Output 06/08/16 06/08/16 06/09/16 15:00 23:00 07:00 Intake Total 640 ml Output Total 1000 ml Balance -360 ml PHYSICAL EXAMINATION: GENERAL: Well-nourished, well-developed Turkish gentleman, comfortable at rest , no acute distress. VITAL SIGNS: As above NECK: Supple. No JVD or lymphadenopathy. CARDIAC: S1, S2, no added sounds or murmurs. CHEST: Diminished air entry bilaterally. ABDOMEN: Soft, nontender. No guarding or rebound. EXTREMITIES: No cyanosis, clubbing, trace edema. NEUROLOGIC: Generalized weakness. Results/Medications Result Diagram: 06/09/16 0650 06/09/16 0650 Results 24 hrs Laboratory Tests Test 06/08/16 17:30 06/08/16 18:02 06/08/16 21:30 06/09/16 02:07 Body Fluid Lactate Dehydrogenase 271 Body Fluid Type PLEURAL FLUID Bedside Glucose 279 H 254 H 203 Test 06/09/16 06:50 06/09/16 07:44 06/09/16 12:26 Anion Gap 15 Basophils # 0.0 Basophils % 0.3 Blood Morphology Comment Blood Urea Nitrogen 31 #H Calcium Level 9.2 Carbon Dioxide Level 33 H Chloride Level 100 Creatinine 0.86 Eosinophils # 0.0 Eosinophils % 0.2 Glucose Level 146 # Hematocrit 35.7 L Hemoglobin 11.7 L Lymphocytes # 2.4 Lymphocytes % 19.8 Magnesium Level 1.8 Mean Corpuscular Hemoglobin 28.3 L Mean Corpuscular Hemoglobin Concent 32.7 Mean Corpuscular Volume 86.5 Mean Platelet Volume 8.5 Monocytes # 0.7 Monocytes % 5.4 Neutrophils # 8.9 H Neutrophils % 74.3 Nucleated Red Blood Cells # 0.0 Nucleated Red Blood Cells % 0.0 Phosphorus Level 4.2 Platelet Count 273 Potassium Level 3.8 Red Blood Count 4.13 L Red Cell Distribution Width 14.0 Sodium Level 144 Troponin I 0.037 White Blood Count 12.0 #H Bedside Glucose 141 180 Medications Current Medications Sodium Chloride (NS) 1,000 ml @ 30 mls/hr Q24H IV Last administered on 22:34; Admin Dose 30 MLS/HR; Start 06/07/16 at 22:34 Lorazepam (Ativan) 0.5 mg Q6H PRN IV ANXIETY; Start 06/07/16 at 23:00 Ondansetron HCl (Zofran Inj) 4 mg Q6H PRN IV NAUSEA AND/OR VOMITING; Start at 23:00 Nitroglycerin (Nitroglycerin (Sl Tab) 0.4 Mg) 1 tab Q5M PRN SL CHEST PAIN; Start 06/07/16 at 23:00 Acetaminophen (Tylenol Tab) 650 mg Q6H PRN PO PAIN LEVEL 1-3 OR FEVER Last administered on 06/09/16 12:22; Admin Dose 650 MG; Start 06/07/16 at 23:00 Morphine Sulfate (morphine) 2 mg Q4H PRN IV PAIN LEVEL 7-10; Start 06/07/16 at 23:00 Docusate Sodium (Colace) 100 mg Q12H PRN PO CONSTIPATION; Start 06/07/16 at 23: 00 Heparin Sodium (Porcine) (Heparin (5000 Units/0.5 ml)) 5,000 unit Q12 SC Last administered on 06/09/16 08:18; Admin Dose 5,000 UNIT; Start 06/08/16 at 09:00 Aspirin (Aspirin) 81 mg DAILY PO Last administered on 06/09/16 08:06; Admin Dose 81 MG; Start 06/08/16 at 09:00 Gabapentin (Neurontin) 300 mg TID PO Last administered on 06/09/16 12:22; Admin Dose 300 MG; Start 06/08/16 at 09:00 Insulin Glargine (Lantus) 30 unit QHS SC Last administered on 06/08/16 21:37; Admin Dose 30 UNIT; Start 06/08/16 at 21:00 Lisinopril (Zestril) 20 mg DAILY PO Last administered on 06/09/16 08:08; Admin Dose 20 MG; Start 06/08/16 at 09:00 Metoprolol Succinate (Toprol Xl) 25 mg BID PO Last administered on 06/09/16 08 :08; Admin Dose 25 MG; Start 06/08/16 at 09:00 Salmeterol Xinafoate/ Fluticasone (Advair 250/50 Diskus) 1 inh BID INH Last administered on 06/09/16 08:06; Admin Dose 1 INH; Start 06/08/16 at 09:00 Diagnostic Test (Pha) (Accucheck) 1 ea 02 XX Last administered on 06/09/16 02: 12; Admin Dose 1 EA; Start 06/08/16 at 02:00 Miscellaneous Information 1 ea NOTE XX ; Start 06/07/16 at 23:00 Glucose (Glutose) 15 gm Q15M PRN PO DECREASED GLUCOSE; Start 06/07/16 at 23:00 Glucose (Glutose) 22.5 gm Q15M PRN PO DECREASED GLUCOSE; Start 06/07/16 at 23: 00 Dextrose (D50w Syringe) 25 ml Q15M PRN IV DECREASED GLUCOSE; Start 06/07/16 at 23:00 Dextrose (D50w Syringe) 50 ml Q15M PRN IV DECREASED GLUCOSE; Start 06/07/16 at 23:00 Glucagon (Glucagen) 1 mg Q15M PRN IM DECREASED GLUCOSE; Start 06/07/16 at 23:00 Glucose (Glutose) 15 gm Q15M PRN BUCCAL DECREASED GLUCOSE; Start 06/07/16 at 23 :00 Hydralazine HCl (Apresoline) 10 mg Q6H PRN IV sbp > 160; Start 06/07/16 at 23: 30 Assessment/Plan Chief Complaint/Hosp Course IMPRESSION 1. Dyspnea, likely secondary to congestive cardiac failure. 2. Diastolic dysfunction. 3. Significant right pleural effusion and underwent thoracentesis. Pending at time of this dictation. Repeat chest x-ray shows recurrence of fluid. Differential of recurrent pleural effusion includes malignancy, congestive cardiac failure, hepatic hydrothorax. Recommendations 1. Increase Diuretics. 2. Cardiology evaluation. 3. Possible repeat thoracentesis with cytology and protein 4. DVT and GI prophylaxis. Problems: KEYSHA FONSECA MD, [facility] Jun 09, 2016 16:47
[2016-06-09 17:15] LABS: ADD UMIC YES; URINE BILIRUBIN (Dip) NEGATIVE (NEGATIVE); URINE BLOOD (Dip) 1+ (NEGATIVE); URINE COLOR LT. YELLOW (YELLOW); URINE GLUCOSE (Dip) NEGATIVE (NEGATIVE); URINE KETONES (Dip) NEGATIVE (NEGATIVE); URINE LEUKOCYTE ESTERASE (Dip) NEGATIVE (NEGATIVE); URINE NITRITE (Dip) NEGATIVE (NEGATIVE); URINE TOTAL PROTEIN (Dip) 1+ (NEGATIVE); URINE UROBILINOGEN (Dip) 0.2 E.U./dL (0.1-1.0)
[2016-06-09 17:39] LABS: SQUAMOUS EPITHELIAL CELL,UR RARE; URINE RBCS 0-2 /HPF (0)
[2016-06-09] MEDS: INSULIN GLARGINE [LANtus] 3 ML PEN SC SCH (20:46)
[2016-06-09] MEDS ORDERED: FAMOTIDINE 20 MG TAB PO SCH (21:00)
[2016-06-09] MEDS: hydrALAzine 20 MG INJ IV PRN (21:00)
[2016-06-09] MEDS: SOD CHLORIDE 0.9% 1,000 ML IV SCH (22:34)
--- NOTE | 2016-06-09 23:10 | RADRPT ---
PROCEDURE: US Abdomen (right upper quadrant). CLINICAL INDICATION: Right upper quadrant abdomen pain. TECHNIQUE: Multiple real-time longitudinal and transverse images of the right upper quadrant of e abdomen were acquired utilizing a curved array transducer. Images were reviewed on a high-resoluti on PACS workstation. COMPARISON: None FINDINGS: The liver is normal in size and echogenicity. There is no focal hepatic lesion. Color Doppler and pulsed Doppler sonography demonstrate normal a ntegrade flow in the portal vein. The gallbladder is normal with no stones or wall thickening. There is no pericholecystic fluid raghavendra ection. The bile ducts are normal with the common bile duct measuring 4.1 mm in diameter. The pancreas is not visualized due to overlying bowel gas. There is no ascites. There is a right pleural effusion. The right kidney measures 13.1 cm. There is normal echogenicity of the right kidney. There is no solid right renal mass. There are 2 benign cysts in the right kidney with the larger cyst measuring 1.5 cm. There are several small nonobstructing right renal calculi. There may be dilatation of e proximal right ureter. IMPRESSION: 1. Pancreas not visualized. 2. Right pleural effusion. 3. Benign right renal cysts. 4. Small nonobstructing right renal calculi. 5. Possibly dilated proximal right ureter. RPTAT: QQ .Kayden Cervantes MD, Date Time Electronically viewed and signed by .Kayden Cervantes MD, on 06/09/2016 23:10 .R/
[2016-06-10] VITALS (12 sets, daily range): BP systolic 130–187; BP diastolic 68–87; PULSE 78–85; RESP 18–20
[2016-06-10] MEDS: ACCUCHECK XX SCH (02:55)
[2016-06-10] MEDS ORDERED: INSULIN ASPART [NOVOLOG] 3 ML PEN SC ONE ×3 (03:00→15:00)
[2016-06-10] MEDS: FUROSEMIDE 40 MG INJ IV SCH ×2 (05:29→17:33)
[2016-06-10 07:00] LABS: BASOPHIL # 0.1 10^3/ul (0.0-0.1); BASOPHILS % 0.5 % (0.0-2.0); EOSINOPHILS # 0.2 10^3/ul (0.0-0.5); EOSINOPHILS % 1.7 % (0.0-7.0); HEMATOCRIT 36.9 % (42.0-52.0); HEMOGLOBIN 12.1 g/dl (14.0-18.0); LYMPHOCYTES # 2.8 10^3/ul (0.8-2.9); LYMPHOCYTES % 28.2 % (15.0-51.0); MEAN CORPUSCULAR HEMOGLOBIN 28.4 pg (29.0-33.0); MEAN CORPUSCULAR HGB CONC 32.8 g/dl (32.0-37.0); MEAN CORPUSCULAR VOLUME 86.4 fl (82.0-101.0); MEAN PLATELET VOLUME 8.6 fl (7.4-10.4); MONOCYTE # 0.9 10^3/ul (0.3-0.9); MONOCYTES % 9.5 % (0.0-11.0); NEUTROPHIL # 5.9 10^3/ul (1.6-7.5); NEUTROPHILS % 60.1 % (39.0-77.0); PLATELET COUNT 287 10^3/UL (140-440); RED BLOOD COUNT 4.28 10^6/ul (4.70-6.10); RED CELL DISTRIBUTION WIDTH 13.8 % (11.5-14.5); UNCORRECTED WBC 9.9 10^3/ul (4.8-10.8); WHITE BLOOD COUNT 9.9 10^3/ul (4.8-10.8)
[2016-06-10 07:02] LABS: CONDITION 1
[2016-06-10 07:15] LABS: POTASSIUM 3.7 mmol/L (3.5-5.1)
[2016-06-10 07:18] LABS: CREATININE 0.79 mg/dl (0.61-1.24)
[2016-06-10 07:19] LABS: MAGNESIUM 1.8 mg/dl (1.7-2.5)
[2016-06-10] MEDS: ASPIRIN 81 MG TAB PO SCH (08:39)
[2016-06-10] MEDS: LISINOPRIL 20 MG TAB PO SCH (08:39)
[2016-06-10] MEDS: GABAPENTIN 300 MG CAP PO SCH ×3 (08:39→21:10)
[2016-06-10] MEDS: METOPROLOL (XL) 25 MG TAB PO SCH ×2 (08:39→21:11)
[2016-06-10] MEDS: SALMETEROL/FLUTICASONE 250/50 INHA INH SCH ×2 (08:40→21:10)
[2016-06-10] MEDS: INSULIN ASPART [NOVOLOG] 3 ML PEN SC SCH ×5 (08:51→21:13)
[2016-06-10] MEDS: HEPARIN 5,000 UNIT/0.5 ML SYG SC SCH (08:52)
--- NOTE | 2016-06-10 09:26 | RADRPT ---
Vent Rate: 84 bpm RR Interval: 0 msec ME Interval: 192 msec QRS Duration: 100 msec QT Interval: 426 msec QTC Interval: 503 msec P-R-T [place]: 48 - 10 - 94 degrees Normal sinus rhythm Possible Left atrial enlargement Nonspecific T wave abnormality Prolonged QT Abnormal ECG Electronically Signed By: Ziggy Armstrong [id number]
--- NOTE | 2016-06-10 11:05 | CONS ---
Date/Time of Note Date/Time of Note DATE: 06/10/16 TIME: 11:03 Assessment/Plan Assessment/Plan Chief Complaint/Hosp Course IMPRESSION: 1. Congestive heart failure exacerbation, diastolic by most recent echo February 2016, acute on chronic. 2. Hypertension,control. 3. Pleural effusions, recurrent, status post paracentesis. 4. History of cardiomyopathy, improved by most recent echo. 5. Chronic obstructive pulmonary disease. 6. Diabetes mellitus with diabetic neuropathy, complaints of foot pain. 7. Shortness of breath secondary to congestive heart failure and pleural effusion. 8. Anemia. Recc: -Tele -Continue lasix diuresis -Continue BB/ACEI -Continue bronchodilators and follow hgb closely Problems: Consultation Date/Type/Reason Admit Date/Time Jun 07, 2016 at 21:39 Initial Consult Date 06/09/2016 Type of Consultation: Cardiology Reason for Consultation CHF Referring Provider: PUNEET ADAMS MD Exam/Review of Systems Vital Signs Vitals Vital Signs Date Time Temp Pulse Resp B/P Pulse Ox O2 Delivery O2 Flow Rate FiO2 06/10/16 08:13 78 06/10/16 07:37 98.4 20 183/81 90 06/09/16 16:36 21 06/09/16 04:34 2.0 06/08/16 00:03 Aerosol Intake and Output 06/09/16 06/09/16 06/10/16 15:00 23:00 07:00 Intake Total 480 ml 700 ml Output Total 825 ml 950 ml Balance -345 ml -250 ml Exam Review of Systems: CONSTITUTIONAL: No fevers, chills. PULMONARY: mild sob CARDIOVASCULAR: No chest pain/palpitations GASTROINTESTINAL: No nausea/vomiting. GENITOURINARY: No hematuria/dysuria. MUSCULOSKELETAL: No myagias/arthalgias. PSYCHIATRIC: The patient denies depression. NEUROLOGIC: No weakness Constitutional: alert Psych: no complaints Head: normocephalic ENMT: mucosa pink and moist Respiratory: diminished breath sounds (at bases/B) Cardiovascular: regular rate and rhythm Gastrointestinal: non-tender, soft Musculoskeletal: muscle tone (normal) Extremities: edema (none) Neurological: other (No focal deficits) Results Result Diagram: 06/10/16 0545 06/10/16 0545 Results 24 hrs Laboratory Tests Test 06/09/16 12:26 06/09/16 16:00 06/09/16 17:33 06/09/16 20:42 Bedside Glucose 180 211 214 Urine Bilirubin NEGATIVE Urine Clarity CLEAR Urine Color LT. YELLOW Urine Glucose NEGATIVE Urine Hemoglobin 1+ H Urine Ketones NEGATIVE Urine Leukocyte Esterase NEGATIVE Urine Microscopic RBC 0-2 Urine Microscopic WBC 0-2 Urine Nitrite NEGATIVE Urine Specific [place] 1.020 Urine Squamous Epithelial Cells RARE Urine Total Protein 1+ H Urine Urobilinogen 0.2 E.U./dL Urine pH 5.5 Test 06/10/16 02:34 06/10/16 05:45 06/10/16 06:18 06/10/16 08:21 Bedside Glucose 343 H 114 212 Anion Gap 13 Basophils # 0.1 Basophils % 0.5 Blood Morphology Comment Blood Urea Nitrogen 29 H Calcium Level 9.0 Carbon Dioxide Level 39 H Chloride Level 97 Creatinine 0.79 Eosinophils # 0.2 Eosinophils % 1.7 Glucose Level 87 # Hematocrit 36.9 L Hemoglobin 12.1 L Lymphocytes # 2.8 Lymphocytes % 28.2 Magnesium Level 1.8 Mean Corpuscular Hemoglobin 28.4 L Mean Corpuscular Hemoglobin Concent 32.8 Mean Corpuscular Volume 86.4 Mean Platelet Volume 8.6 Monocytes # 0.9 Monocytes % 9.5 Neutrophils # 5.9 Neutrophils % 60.1 Nucleated Red Blood Cells # 0.0 Nucleated Red Blood Cells % 0.0 Platelet Count 287 Potassium Level 3.7 Red Blood Count 4.28 L Red Cell Distribution Width 13.8 Sodium Level 145 H White Blood Count 9.9 Medications Medications Current Medications Sodium Chloride (NS) 1,000 ml @ 30 mls/hr Q24H IV Last administered on 22:34; Admin Dose 30 MLS/HR; Start 06/07/16 at 22:34 Lorazepam (Ativan) 0.5 mg Q6H PRN IV ANXIETY; Start 06/07/16 at 23:00 Ondansetron HCl (Zofran Inj) 4 mg Q6H PRN IV NAUSEA AND/OR VOMITING; Start at 23:00 Nitroglycerin (Nitroglycerin (Sl Tab) 0.4 Mg) 1 tab Q5M PRN SL CHEST PAIN; Start 06/07/16 at 23:00 Acetaminophen (Tylenol Tab) 650 mg Q6H PRN PO PAIN LEVEL 1-3 OR FEVER Last administered on 06/09/16 12:22; Admin Dose 650 MG; Start 06/07/16 at 23:00 Morphine Sulfate (morphine) 2 mg Q4H PRN IV PAIN LEVEL 7-10; Start 06/07/16 at 23:00 Docusate Sodium (Colace) 100 mg Q12H PRN PO CONSTIPATION; Start 06/07/16 at 23: 00 Heparin Sodium (Porcine) (Heparin (5000 Units/0.5 ml)) 5,000 unit Q12 SC Last administered on 06/10/16 08:52; Admin Dose 5,000 UNIT; Start 06/08/16 at 09:00 Aspirin (Aspirin) 81 mg DAILY PO Last administered on 06/10/16 08:39; Admin Dose 81 MG; Start 06/08/16 at 09:00 Gabapentin (Neurontin) 300 mg TID PO Last administered on 06/10/16 08:39; Admin Dose 300 MG; Start 06/08/16 at 09:00 Insulin Glargine (Lantus) 30 unit QHS SC Last administered on 06/09/16 20:46; Admin Dose 30 UNIT; Start 06/08/16 at 21:00 Lisinopril (Zestril) 20 mg DAILY PO Last administered on 06/10/16 08:39; Admin Dose 20 MG; Start 06/08/16 at 09:00 Metoprolol Succinate (Toprol Xl) 25 mg BID PO Last administered on 06/10/16 08: 39; Admin Dose 25 MG; Start 06/08/16 at 09:00 Salmeterol Xinafoate/ Fluticasone (Advair 250/50 Diskus) 1 inh BID INH Last administered on 06/10/16 08:40; Admin Dose 1 INH; Start 06/08/16 at 09:00 Diagnostic Test (Pha) (Accucheck) 1 ea 02 XX Last administered on 06/10/16 02: 55; Admin Dose 1 EA; Start 06/08/16 at 02:00 Miscellaneous Information 1 ea NOTE XX ; Start 06/07/16 at 23:00 Glucose (Glutose) 15 gm Q15M PRN PO DECREASED GLUCOSE; Start 06/07/16 at 23:00 Glucose (Glutose) 22.5 gm Q15M PRN PO DECREASED GLUCOSE; Start 06/07/16 at 23: 00 Dextrose (D50w Syringe) 25 ml Q15M PRN IV DECREASED GLUCOSE; Start 06/07/16 at 23:00 Dextrose (D50w Syringe) 50 ml Q15M PRN IV DECREASED GLUCOSE; Start 06/07/16 at 23:00 Glucagon (Glucagen) 1 mg Q15M PRN IM DECREASED GLUCOSE; Start 06/07/16 at 23:00 Glucose (Glutose) 15 gm Q15M PRN BUCCAL DECREASED GLUCOSE; Start 06/07/16 at 23 :00 Hydralazine HCl (Apresoline) 10 mg Q6H PRN IV sbp > 160 Last administered on t 21:00; Admin Dose 10 MG; Start 06/07/16 at 23:30 JOSÉ GARCIA Jun 10, 2016 11:05
--- NOTE | 2016-06-10 11:45 | CONS ---
Date/Time of Note Date/Time of Note DATE: 06/10/16 TIME: 11:36 Assessment/Plan Assessment/Plan Additional Assessment/Plan Assessment and recommendations; next 1. Patient admitted with shortness of breath discovered to have large right pleural effusion status post thoracentesis. Chest x-ray was reviewed from of this month which is not showing any significant recommendation of pleural fluid. Patient's lung examination today is essentially clear. Next 2. 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 The patient does have a significant history of alcohol abuse in the past. However liver ultrasound is not showing any evidence of cirrhosis of liver. 3. Possibly underlying COPD and chronic bronchitis. Continue current treatment, patient responding well to increased Lasix dosing. 2D echocardiogram ordered. Consultation Date/Type/Reason Admit Date/Time Jun 07, 2016 at 21:39 Initial Consult Date Type of Consultation: Cardiology Referring Provider: PUNEET ADAMS MD 24 HR Interval Summary Free Text/Dictation Patient condition is significantly improved. He denies any shortness of breath. Any chest pain. Complains of scant cough. Denies any wheezing. Next General examination; elderly gentleman, awake alert oriented 3. Eating lunch at bedside. Exam/Review of Systems Vital Signs Vitals Vital Signs Date Time Temp Pulse Resp B/P Pulse Ox O2 Delivery O2 Flow Rate FiO2 06/10/16 08:13 78 06/10/16 07:37 98.4 20 183/81 90 06/09/16 16:36 21 06/09/16 04:34 2.0 06/08/16 00:03 Aerosol Intake and Output 06/09/16 06/09/16 06/10/16 15:00 23:00 07:00 Intake Total 480 ml 700 ml Output Total 825 ml 950 ml Balance -345 ml -250 ml Exam HEENT examination; supple neck, patient is edentulous. No JVD. No thyromegaly. Pupils are small bilaterally. No neck bruits. Trachea is midline. Chest examination; diminished but clear breath sounds bilaterally. S1-S2 audible. No murmurs. Regular rate and rhythm. Abdomen examination; soft, non-tender, slightly protuberant. Bowel sounds audible. Extremity examination; no peripheral edema. Pulses 1+ bilaterally. BOTTOM STOP ATTACHER examination; no focal deficit. Results Result Diagram: 06/10/16 0545 06/10/16 0545 Results 24 hrs Laboratory Tests Test 1/31/17 12:26 06/09/16 16:00 06/09/16 17:33 06/09/16 20:42 Bedside Glucose 180 211 214 Urine Bilirubin NEGATIVE Urine Clarity CLEAR Urine Color LT. YELLOW Urine Glucose NEGATIVE Urine Hemoglobin 1+ H Urine Ketones NEGATIVE Urine Leukocyte Esterase NEGATIVE Urine Microscopic RBC 0-2 Urine Microscopic WBC 0-2 Urine Nitrite NEGATIVE Urine Specific [place] 1.020 Urine Squamous Epithelial Cells RARE Urine Total Protein 1+ H Urine Urobilinogen 0.2 E.U./dL Urine pH 5.5 Test 06/10/16 02:34 06/10/16 05:45 06/10/16 06:18 06/10/16 08:21 Bedside Glucose 343 H 114 212 Anion Gap 13 Basophils # 0.1 Basophils % 0.5 Blood Morphology Comment Blood Urea Nitrogen 29 H Calcium Level 9.0 Carbon Dioxide Level 39 H Chloride Level 97 Creatinine 0.79 Eosinophils # 0.2 Eosinophils % 1.7 Glucose Level 87 # Hematocrit 36.9 L Hemoglobin 12.1 L Lymphocytes # 2.8 Lymphocytes % 28.2 Magnesium Level 1.8 Mean Corpuscular Hemoglobin 28.4 L Mean Corpuscular Hemoglobin Concent 32.8 Mean Corpuscular Volume 86.4 Mean Platelet Volume 8.6 Monocytes # 0.9 Monocytes % 9.5 Neutrophils # 5.9 Neutrophils % 60.1 Nucleated Red Blood Cells # 0.0 Nucleated Red Blood Cells % 0.0 Platelet Count 287 Potassium Level 3.7 Red Blood Count 4.28 L Red Cell Distribution Width 13.8 Sodium Level 145 H White Blood Count 9.9 Medications Medications Current Medications Sodium Chloride (NS) 1,000 ml @ 30 mls/hr Q24H IV Last administered on t 22:34; Admin Dose 30 MLS/HR; Start 06/07/16 at 22:34 Lorazepam (Ativan) 0.5 mg Q6H PRN IV ANXIETY; Start 06/07/16 at 23:00 Ondansetron HCl (Zofran Inj) 4 mg Q6H PRN IV NAUSEA AND/OR VOMITING; Start at 23:00 Nitroglycerin (Nitroglycerin (Sl Tab) 0.4 Mg) 1 tab Q5M PRN SL CHEST PAIN; Start 06/07/16 at 23:00 Acetaminophen (Tylenol Tab) 650 mg Q6H PRN PO PAIN LEVEL 1-3 OR FEVER Last administered on 06/09/16 12:22; Admin Dose 650 MG; Start 06/07/16 at 23:00 Morphine Sulfate (morphine) 2 mg Q4H PRN IV PAIN LEVEL 7-10; Start 06/07/16 at 23:00 Docusate Sodium (Colace) 100 mg Q12H PRN PO CONSTIPATION; Start 06/07/16 at 23: 00 Heparin Sodium (Porcine) (Heparin (5000 Units/0.5 ml)) 5,000 unit Q12 SC Last administered on 06/10/16 08:52; Admin Dose 5,000 UNIT; Start 06/08/16 at 09:00 Aspirin (Aspirin) 81 mg DAILY PO Last administered on 06/10/16 08:39; Admin Dose 81 MG; Start 06/08/16 at 09:00 Gabapentin (Neurontin) 300 mg TID PO Last administered on 06/10/16 08:39; Admin Dose 300 MG; Start 06/08/16 at 09:00 Insulin Glargine (Lantus) 30 unit QHS SC Last administered on 06/09/16 20:46; Admin Dose 30 UNIT; Start 06/08/16 at 21:00 Lisinopril (Zestril) 20 mg DAILY PO Last administered on 06/10/16 08:39; Admin Dose 20 MG; Start 06/08/16 at 09:00 Metoprolol Succinate (Toprol Xl) 25 mg BID PO Last administered on 06/10/16 08: 39; Admin Dose 25 MG; Start 06/08/16 at 09:00 Salmeterol Xinafoate/ Fluticasone (Advair 250/50 Diskus) 1 inh BID INH Last administered on 06/10/16 08:40; Admin Dose 1 INH; Start 06/08/16 at 09:00 Diagnostic Test (Pha) (Accucheck) 1 ea 02 XX Last administered on 06/10/16 02: 55; Admin Dose 1 EA; Start 06/08/16 at 02:00 Miscellaneous Information 1 ea NOTE XX ; Start 06/07/16 at 23:00 Glucose (Glutose) 15 gm Q15M PRN PO DECREASED GLUCOSE; Start 06/07/16 at 23:00 Glucose (Glutose) 22.5 gm Q15M PRN PO DECREASED GLUCOSE; Start 06/07/16 at 23: 00 Dextrose (D50w Syringe) 25 ml Q15M PRN IV DECREASED GLUCOSE; Start 06/07/16 at 23:00 Dextrose (D50w Syringe) 50 ml Q15M PRN IV DECREASED GLUCOSE; Start 06/07/16 at 23:00 Glucagon (Glucagen) 1 mg Q15M PRN IM DECREASED GLUCOSE; Start 06/07/16 at 23:00 Glucose (Glutose) 15 gm Q15M PRN BUCCAL DECREASED GLUCOSE; Start 06/07/16 at 23 :00 Hydralazine HCl (Apresoline) 10 mg Q6H PRN IV sbp > 160 Last administered on t 21:00; Admin Dose 10 MG; Start 06/07/16 at 23:30 DAILY LARIOS Jun 10, 2016 11:45
--- NOTE | 2016-06-10 13:27 | RADRPT ---
PROCEDURE: XR Chest. CLINICAL INDICATION: Shortness of breath. TECHNIQUE: Single frontal view. COMPARISON: 06/09/2016. FINDINGS: There is air space disease in the right mid and lower lung zones consistent with atelectasis or pneu monia, slightly improved. Pulmonary edema is unchanged. The lungs are otherwise clear. The heart is enlarged. There is calcification in the aorta consistent with atherosclerosis. There is a small right pleural effusion. There is no left pleural effusion. There is no pneumothorax. IMPRESSION: 1. Slightly improved appearance of the right lung. 2. No other change from 06/09/2016. RPTAT: QQ .Kayden Cervantes MD, MD Date Time Electronically viewed and signed by .Kayden Cervantes MD, MD on 06/10/2016 13:26 .R/
--- NOTE | 2016-06-10 14:53 | PN ---
Date/Time of Note Date/Time of Note DATE: 06/10/16 TIME: 14:42 Assessment/Plan VTE Prophylaxis VTE Prophylaxis Intervention: LMWH Lines/Catheters IV [facility] [facility] Urinary Cath still in place: No Assessment/Plan Chief Complaint/Hosp Course 1. Acute hypoxemic respiratory failure - 2/2 to #2/3 -Pulm/cardio consults appreciated -cont Diuresis -CT Surgery consulted for recurrent Pleural effusion 2. Large right recurrent pleural effusion - s/p thoracentesis with recurrent effusion -cont Lasix, F/U with fluid Cx and Cytology -US Abd is normal, no e/o Cirrhosis -CT surgery consult 3. COPD exac - will continue with duonebs, antibiotics as tolerated 4. Diabetic neuropathy - continue with gabapentin 5. Type II DM-OOC -cont Lantus and have added Novolog QAC -cont NISS -A1C at 8.8 6. Essential hypertension - uncontrolled -increase Lisinopril dose PPX- Lovenox Problems: Subjective 24 Hr Interval Summary Constitutional: no complaints Exam/Review of Systems Vital Signs Vitals Vital Signs Date Time Temp Pulse Resp B/P Pulse Ox O2 Delivery O2 Flow Rate FiO2 06/10/16 12:12 79 06/10/16 12:00 98.5 20 187/87 93 06/09/16 16:36 21 06/09/16 04:34 2.0 06/08/16 00:03 Aerosol Intake and Output 06/09/16 06/09/16 06/10/16 15:00 23:00 07:00 Intake Total 480 ml 700 ml Output Total 825 ml 950 ml Balance -345 ml -250 ml Exam Constitutional: alert, oriented Respiratory: clear to auscultation Cardiovascular: regular rate and rhythm Gastrointestinal: soft, No distended Musculoskeletal: nl extremities to inspection Results Result Diagram: 06/10/16 0545 06/10/16 0545 Results 24 hrs Laboratory Tests Test 06/09/16 16:00 06/09/16 17:33 06/09/16 20:42 06/10/16 02:34 Urine Bilirubin NEGATIVE Urine Clarity CLEAR Urine Color LT. YELLOW Urine Glucose NEGATIVE Urine Hemoglobin 1+ H Urine Ketones NEGATIVE Urine Leukocyte Esterase NEGATIVE Urine Microscopic RBC 0-2 Urine Microscopic WBC 0-2 Urine Nitrite NEGATIVE Urine Specific [place] 1.020 Urine Squamous Epithelial Cells RARE Urine Total Protein 1+ H Urine Urobilinogen 0.2 E.U./dL Urine pH 5.5 Bedside Glucose 211 214 343 H Test 06/10/16 05:45 06/10/16 06:18 06/10/16 08:21 06/10/16 12:54 Anion Gap 13 Basophils # 0.1 Basophils % 0.5 Blood Morphology Comment Blood Urea Nitrogen 29 H Calcium Level 9.0 Carbon Dioxide Level 39 H Chloride Level 97 Creatinine 0.79 Eosinophils # 0.2 Eosinophils % 1.7 Glucose Level 87 # Hematocrit 36.9 L Hemoglobin 12.1 L Lymphocytes # 2.8 Lymphocytes % 28.2 Magnesium Level 1.8 Mean Corpuscular Hemoglobin 28.4 L Mean Corpuscular Hemoglobin Concent 32.8 Mean Corpuscular Volume 86.4 Mean Platelet Volume 8.6 Monocytes # 0.9 Monocytes % 9.5 Neutrophils # 5.9 Neutrophils % 60.1 Nucleated Red Blood Cells # 0.0 Nucleated Red Blood Cells % 0.0 Platelet Count 287 Potassium Level 3.7 Red Blood Count 4.28 L Red Cell Distribution Width 13.8 Sodium Level 145 H White Blood Count 9.9 Bedside Glucose 114 212 481 *H Medications Medications Current Medications Sodium Chloride (NS) 1,000 ml @ 30 mls/hr Q24H IV Last administered on 22:34; Admin Dose 30 MLS/HR; Start 06/07/16 at 22:34 Lorazepam (Ativan) 0.5 mg Q6H PRN IV ANXIETY; Start 06/07/16 at 23:00 Ondansetron HCl (Zofran Inj) 4 mg Q6H PRN IV NAUSEA AND/OR VOMITING; Start at 23:00 Nitroglycerin (Nitroglycerin (Sl Tab) 0.4 Mg) 1 tab Q5M PRN SL CHEST PAIN; Start 06/07/16 at 23:00 Acetaminophen (Tylenol Tab) 650 mg Q6H PRN PO PAIN LEVEL 1-3 OR FEVER Last administered on 06/09/16 12:22; Admin Dose 650 MG; Start 06/07/16 at 23:00 Morphine Sulfate (morphine) 2 mg Q4H PRN IV PAIN LEVEL 7-10; Start 06/07/16 at 23:00 Docusate Sodium (Colace) 100 mg Q12H PRN PO CONSTIPATION; Start 06/07/16 at 23: 00 Heparin Sodium (Porcine) (Heparin (5000 Units/0.5 ml)) 5,000 unit Q12 SC Last administered on 06/10/16 08:52; Admin Dose 5,000 UNIT; Start 06/08/16 at 09:00 Aspirin (Aspirin) 81 mg DAILY PO Last administered on 06/10/16 08:39; Admin Dose 81 MG; Start 06/08/16 at 09:00 Gabapentin (Neurontin) 300 mg TID PO Last administered on 06/10/16 13:20; Admin Dose 300 MG; Start 06/08/16 at 09:00 Insulin Glargine (Lantus) 30 unit QHS SC Last administered on 06/09/16 20:46; Admin Dose 30 UNIT; Start 06/08/16 at 21:00 Lisinopril (Zestril) 20 mg DAILY PO Last administered on 06/10/16 08:39; Admin Dose 20 MG; Start 06/08/16 at 09:00 Metoprolol Succinate (Toprol Xl) 25 mg BID PO Last administered on 06/10/16 08: 39; Admin Dose 25 MG; Start 06/08/16 at 09:00 Salmeterol Xinafoate/ Fluticasone (Advair 250/50 Diskus) 1 inh BID INH Last administered on 06/10/16 08:40; Admin Dose 1 INH; Start 06/08/16 at 09:00 Diagnostic Test (Pha) (Accucheck) 1 ea 02 XX Last administered on 06/10/16 02: 55; Admin Dose 1 EA; Start 06/08/16 at 02:00 Miscellaneous Information 1 ea NOTE XX ; Start 06/07/16 at 23:00 Glucose (Glutose) 15 gm Q15M PRN PO DECREASED GLUCOSE; Start 06/07/16 at 23:00 Glucose (Glutose) 22.5 gm Q15M PRN PO DECREASED GLUCOSE; Start 06/07/16 at 23: 00 Dextrose (D50w Syringe) 25 ml Q15M PRN IV DECREASED GLUCOSE; Start 06/07/16 at 23:00 Dextrose (D50w Syringe) 50 ml Q15M PRN IV DECREASED GLUCOSE; Start 06/07/16 at 23:00 Glucagon (Glucagen) 1 mg Q15M PRN IM DECREASED GLUCOSE; Start 06/07/16 at 23:00 Glucose (Glutose) 15 gm Q15M PRN BUCCAL DECREASED GLUCOSE; Start 06/07/16 at 23 :00 Hydralazine HCl (Apresoline) 10 mg Q6H PRN IV sbp > 160 Last administered on t 21:00; Admin Dose 10 MG; Start 06/07/16 at 23:30 JOSE MAZARIEGOS Jun 10, 2016 14:52
[2016-06-10] MEDS ORDERED: LISINOPRIL 20 MG TAB PO ONE (15:00)
[2016-06-10] MEDS: INSULIN GLARGINE [LANtus] 3 ML PEN SC SCH (21:13)
[2016-06-10] MEDS: SOD CHLORIDE 0.9% 1,000 ML IV SCH (22:34)
[2016-06-11] VITALS (10 sets, daily range): BP systolic 151–194; BP diastolic 68–96; PULSE 81–88; RESP 18–21
[2016-06-11] MEDS: hydrALAzine 20 MG INJ IV PRN ×2 (00:59→12:21)
[2016-06-11] MEDS: ACCUCHECK XX SCH (02:00)
[2016-06-11] MEDS ORDERED: INSULIN ASPART [NOVOLOG] 3 ML PEN SC ONE (02:30)
[2016-06-11] MEDS: FUROSEMIDE 40 MG INJ IV SCH ×2 (05:49→17:28)
[2016-06-11 07:00] LABS: POTASSIUM 3.9 mmol/L (3.5-5.1)
[2016-06-11 07:02] LABS: CREATININE 0.84 mg/dl (0.61-1.24)
[2016-06-11 07:03] LABS: CALCIUM 9.1 mg/dl (8.4-10.2)
[2016-06-11 07:12] LABS: BASOPHILS % 0.3 % (0.0-2.0); EOSINOPHILS # 0.2 10^3/ul (0.0-0.5); EOSINOPHILS % 2.3 % (0.0-7.0); HEMATOCRIT 35.6 % (42.0-52.0); HEMOGLOBIN 11.6 g/dl (14.0-18.0); LYMPHOCYTES # 2.4 10^3/ul (0.8-2.9); LYMPHOCYTES % 25.5 % (15.0-51.0); MEAN CORPUSCULAR HGB CONC 32.5 g/dl (32.0-37.0); MEAN PLATELET VOLUME 8.4 fl (7.4-10.4); MONOCYTE # 0.9 10^3/ul (0.3-0.9); MONOCYTES % 9.5 % (0.0-11.0); NEUTROPHIL # 5.9 10^3/ul (1.6-7.5); NEUTROPHILS % 62.4 % (39.0-77.0); PLATELET COUNT 270 10^3/UL (140-440); RED BLOOD COUNT 4.14 10^6/ul (4.70-6.10); RED CELL DISTRIBUTION WIDTH 14.2 % (11.5-14.5); UNCORRECTED WBC 9.5 10^3/ul (4.8-10.8); WHITE BLOOD COUNT 9.5 10^3/ul (4.8-10.8)
[2016-06-11 07:23] LABS: CONDITION 1
[2016-06-11] MEDS: INSULIN ASPART [NOVOLOG] 3 ML PEN SC SCH ×6 (07:46→17:27)
[2016-06-11] MEDS ORDERED: INSULIN GLARGINE [LANtus] 3 ML PEN SC SCH (08:00)
[2016-06-11] MEDS: GABAPENTIN 300 MG CAP PO SCH ×2 (08:40→12:28)
[2016-06-11] MEDS: ASPIRIN 81 MG TAB PO SCH (08:40)
[2016-06-11] MEDS: SALMETEROL/FLUTICASONE 250/50 INHA INH SCH (08:40)
[2016-06-11] MEDS: METOPROLOL (XL) 25 MG TAB PO SCH (08:48)
[2016-06-11] MEDS ORDERED: LISINOPRIL 20 MG TAB PO SCH (09:00)
[2016-06-11] MEDS ORDERED: ENOXAPARIN 40 MG/0.4 ML SYG SC SCH (09:00)
--- NOTE | 2016-06-11 12:30 | CONS ---
Date/Time of Note Date/Time of Note DATE: 06/11/16 TIME: 12:28 Assessment/Plan Assessment/Plan Chief Complaint/Hosp Course IMPRESSION: 1. Congestive heart failure exacerbation, diastolic by most recent echo February 2016, acute on chronic. 2. Hypertension-uncontrolled 3. Pleural effusions, recurrent, status post paracentesis. 4. History of cardiomyopathy, improved by most recent echo. 5. Chronic obstructive pulmonary disease. 6. Diabetes mellitus with diabetic neuropathy, complaints of foot pain. 7. Shortness of breath secondary to congestive heart failure and pleural effusion. 8. Anemia. Recc: -Tele -Continue lasix diuresis -Continue BB/ACEI -Add CCB to improve BP -Continue bronchodilators and follow hgb closely Problems: Consultation Date/Type/Reason Admit Date/Time Jun 07, 2016 at 21:39 Initial Consult Date 06/09/2016 Type of Consultation: Cardiology Reason for Consultation CHF Referring Provider: PUNEET ADAMS MD Exam/Review of Systems Vital Signs Vitals Vital Signs Date Time Temp Pulse Resp B/P Pulse Ox O2 Delivery O2 Flow Rate FiO2 06/11/16 11:18 98.1 78 20 183/91 94 06/09/16 16:36 21 06/09/16 04:34 2.0 06/08/16 00:03 Aerosol Intake and Output 06/10/16 06/10/16 06/11/16 15:00 23:00 07:00 Intake Total 750 ml 800 ml Output Total 800 ml 700 ml Balance -50 ml 100 ml Exam Review of Systems: CONSTITUTIONAL: No fevers, chills. PULMONARY: No sob CARDIOVASCULAR: No chest pain/palpitations GASTROINTESTINAL: No nausea/vomiting. GENITOURINARY: No hematuria/dysuria. MUSCULOSKELETAL: No myagias/arthalgias. PSYCHIATRIC: The patient denies depression. NEUROLOGIC: No weakness Constitutional: alert, oriented Psych: no complaints ENMT: mucosa pink and moist Neck: jvd (9 cm water), supple Respiratory: diminished breath sounds (at bases/B) Cardiovascular: regular rate and rhythm Gastrointestinal: non-tender, soft Musculoskeletal: muscle tone (normal) Extremities: edema (none) Neurological: other (No focal deficits) Results Result Diagram: 06/11/16 0605 06/11/16 0605 Results 24 hrs Laboratory Tests Test 06/10/16 12:54 06/10/16 14:48 06/10/16 17:21 06/10/16 21:05 Bedside Glucose 481 *H 292 H 150 244 H Test 06/11/16 02:00 06/11/16 02:04 06/11/16 06:05 06/11/16 07:35 Bedside Glucose 384 H 380 H 184 Anion Gap 14 Basophils # 0.0 Basophils % 0.3 Blood Morphology Comment Blood Urea Nitrogen 29 H Calcium Level 9.1 Carbon Dioxide Level 35 H Chloride Level 101 Creatinine 0.84 Eosinophils # 0.2 Eosinophils % 2.3 Glucose Level 169 Hematocrit 35.6 L Hemoglobin 11.6 L Lymphocytes # 2.4 Lymphocytes % 25.5 Mean Corpuscular Hemoglobin 28.0 L Mean Corpuscular Hemoglobin Concent 32.5 Mean Corpuscular Volume 86.0 Mean Platelet Volume 8.4 Monocytes # 0.9 Monocytes % 9.5 Neutrophils # 5.9 Neutrophils % 62.4 Nucleated Red Blood Cells # 0.0 Nucleated Red Blood Cells % 0.0 Platelet Count 270 Potassium Level 3.9 Red Blood Count 4.14 L Red Cell Distribution Width 14.2 Sodium Level 146 H White Blood Count 9.5 Test 06/11/16 12:19 Bedside Glucose 328 H Medications Medications Current Medications Sodium Chloride (NS) 1,000 ml @ 30 mls/hr Q24H IV Last administered on 22:34; Admin Dose 30 MLS/HR; Start 06/07/16 at 22:34 Lorazepam (Ativan) 0.5 mg Q6H PRN IV ANXIETY; Start 06/07/16 at 23:00 Ondansetron HCl (Zofran Inj) 4 mg Q6H PRN IV NAUSEA AND/OR VOMITING; Start at 23:00 Nitroglycerin (Nitroglycerin (Sl Tab) 0.4 Mg) 1 tab Q5M PRN SL CHEST PAIN; Start 06/07/16 at 23:00 Acetaminophen (Tylenol Tab) 650 mg Q6H PRN PO PAIN LEVEL 1-3 OR FEVER Last administered on 06/09/16 12:22; Admin Dose 650 MG; Start 06/07/16 at 23:00 Morphine Sulfate (morphine) 2 mg Q4H PRN IV PAIN LEVEL 7-10; Start 06/07/16 at 23:00 Docusate Sodium (Colace) 100 mg Q12H PRN PO CONSTIPATION; Start 06/07/16 at 23: 00 Aspirin (Aspirin) 81 mg DAILY PO Last administered on 06/11/16 08:40; Admin Dose 81 MG; Start 06/08/16 at 09:00 Gabapentin (Neurontin) 300 mg TID PO Last administered on 06/11/16 08:40; Admin Dose 300 MG; Start 06/08/16 at 09:00 Insulin Glargine (Lantus) 30 unit QHS SC Last administered on 06/10/16 21:13; Admin Dose 30 UNIT; Start 06/08/16 at 21:00 Metoprolol Succinate (Toprol Xl) 25 mg BID PO Last administered on 06/11/16 08: 48; Admin Dose 25 MG; Start 06/08/16 at 09:00 Salmeterol Xinafoate/ Fluticasone (Advair 250/50 Diskus) 1 inh BID INH Last administered on 06/11/16 08:40; Admin Dose 1 INH; Start 06/08/16 at 09:00 Diagnostic Test (Pha) (Accucheck) 1 ea 02 XX Last administered on 06/10/16 02: 55; Admin Dose 1 EA; Start 06/08/16 at 02:00 Miscellaneous Information 1 ea NOTE XX ; Start 06/07/16 at 23:00 Glucose (Glutose) 15 gm Q15M PRN PO DECREASED GLUCOSE; Start 06/07/16 at 23:00 Glucose (Glutose) 22.5 gm Q15M PRN PO DECREASED GLUCOSE; Start 06/07/16 at 23: 00 Dextrose (D50w Syringe) 25 ml Q15M PRN IV DECREASED GLUCOSE; Start 06/07/16 at 23:00 Dextrose (D50w Syringe) 50 ml Q15M PRN IV DECREASED GLUCOSE; Start 06/07/16 at 23:00 Glucagon (Glucagen) 1 mg Q15M PRN IM DECREASED GLUCOSE; Start 06/07/16 at 23:00 Glucose (Glutose) 15 gm Q15M PRN BUCCAL DECREASED GLUCOSE; Start 06/07/16 at 23 :00 Hydralazine HCl (Apresoline) 10 mg Q6H PRN IV sbp > 160 Last administered on 00:59; Admin Dose 10 MG; Start 1/29/17 at 23:30 Lisinopril (Zestril) 40 mg DAILY PO Last administered on 06/11/16 08:40; Admin Dose 40 MG; Start 06/11/16 at 09:00 Enoxaparin Sodium (Lovenox) 40 mg DAILY SC Last administered on 06/11/16 08:47 ; Admin Dose 40 MG; Start 06/11/16 at 09:00 Insulin Glargine (Lantus) 15 unit DAILY@08 SC Last administered on 06/11/16 07: 47; Admin Dose 15 UNIT; Start 06/11/16 at 08:00 JOSÉ GARCIA Jun 11, 2016 12:30
--- NOTE | 2016-06-11 13:04 | CONS ---
Date/Time of Note Date/Time of Note DATE: 06/11/16 TIME: 13:01 Assessment/Plan Assessment/Plan Additional Assessment/Plan Assessment and Recommendations; 1. Patient admitted with shortness of breath discovered to have large right pleural effusion status post thoracentesis without any significant recurrence. 2. Hypertension, with diastolic dysfunction. Patient has normal ejection fraction. 3. Diabetes with hyperglycemia. 4. History of hypertension. Continue current treatment. Insulin dosing needs to be increased for better glycemic control. Patient to be discharged home. Consultation Date/Type/Reason Admit Date/Time Jun 07, 2016 at 21:39 Type of Consultation: Cardiology Referring Provider: PUNEET ADAMS MD 24 HR Interval Summary Free Text/Dictation Patient condition is stable. Sitting at the edge of bed. Denies any shortness of breath, chest pain. General exam; elderly male. Currently in no distress. Exam/Review of Systems Vital Signs Vitals Vital Signs Date Time Temp Pulse Resp B/P Pulse Ox O2 Delivery O2 Flow Rate FiO2 06/11/16 12:45 82 06/11/16 11:18 98.1 20 183/91 94 06/09/16 16:36 21 06/09/16 04:34 2.0 06/08/16 00:03 Aerosol Intake and Output 06/10/16 06/10/16 06/11/16 15:00 23:00 07:00 Intake Total 750 ml 800 ml Output Total 800 ml 700 ml Balance -50 ml 100 ml Exam HEENT examination; supple neck, no JVD. No lymphadenopathy. Pharynx is clear. Pupils are midsize reactive to light. Chest examination; minimally decreased breath sounds right lower lobe otherwise clear . S1-S2 audible no murmurs, regular rhythm. Abdomen; soft, normal distended. Nontender. No organomegaly. Bowel sounds audible. Extremity examination; no peripheral edema. Pulses 1+ bilaterally. COMPONENT ASSEMBLER SUPERVISOR examination; no focal deficit. Results Result Diagram: 06/11/16 0606/11/16 06 Results 24 hrs Laboratory Tests Test 06/10/16 14:48 06/10/16 17:21 06/10/16 21:05 06/11/16 02:00 Bedside Glucose 292 H 150 244 H 384 H Test 06/11/16 02:04 06/11/16 06:05 06/11/16 07:35 06/11/16 12:19 Bedside Glucose 380 H 184 328 H Anion Gap 14 Basophils # 0.0 Basophils % 0.3 Blood Morphology Comment Blood Urea Nitrogen 29 H Calcium Level 9.1 Carbon Dioxide Level 35 H Chloride Level 101 Creatinine 0.84 Eosinophils # 0.2 Eosinophils % 2.3 Glucose Level 169 Hematocrit 35.6 L Hemoglobin 11.6 L Lymphocytes # 2.4 Lymphocytes % 25.5 Mean Corpuscular Hemoglobin 28.0 L Mean Corpuscular Hemoglobin Concent 32.5 Mean Corpuscular Volume 86.0 Mean Platelet Volume 8.4 Monocytes # 0.9 Monocytes % 9.5 Neutrophils # 5.9 Neutrophils % 62.4 Nucleated Red Blood Cells # 0.0 Nucleated Red Blood Cells % 0.0 Platelet Count 270 Potassium Level 3.9 Red Blood Count 4.14 L Red Cell Distribution Width 14.2 Sodium Level 146 H White Blood Count 9.5 Medications Medications Current Medications Sodium Chloride (NS) 1,000 ml @ 30 mls/hr Q24H IV Last administered on 22:34; Admin Dose 30 MLS/HR; Start 06/07/16 at 22:34 Lorazepam (Ativan) 0.5 mg Q6H PRN IV ANXIETY; Start 06/07/16 at 23:00 Ondansetron HCl (Zofran Inj) 4 mg Q6H PRN IV NAUSEA AND/OR VOMITING; Start at 23:00 Nitroglycerin (Nitroglycerin (Sl Tab) 0.4 Mg) 1 tab Q5M PRN SL CHEST PAIN; Start 06/07/16 at 23:00 Acetaminophen (Tylenol Tab) 650 mg Q6H PRN PO PAIN LEVEL 1-3 OR FEVER Last administered on 06/09/16 12:22; Admin Dose 650 MG; Start 06/07/16 at 23:00 Morphine Sulfate (morphine) 2 mg Q4H PRN IV PAIN LEVEL 7-10; Start 06/07/16 at 23:00 Docusate Sodium (Colace) 100 mg Q12H PRN PO CONSTIPATION; Start 06/07/16 at 23: 00 Aspirin (Aspirin) 81 mg DAILY PO Last administered on 06/11/16 08:40; Admin Dose 81 MG; Start 06/08/16 at 09:00 Gabapentin (Neurontin) 300 mg TID PO Last administered on 06/11/16 12:28; Admin Dose 300 MG; Start 06/08/16 at 09:00 Insulin Glargine (Lantus) 30 unit QHS SC Last administered on 06/10/16 21:13; Admin Dose 30 UNIT; Start 06/08/16 at 21:00 Metoprolol Succinate (Toprol Xl) 25 mg BID PO Last administered on 06/11/16 08: 48; Admin Dose 25 MG; Start 06/08/16 at 09:00 Salmeterol Xinafoate/ Fluticasone (Advair 250/50 Diskus) 1 inh BID INH Last administered on 06/11/16 08:40; Admin Dose 1 INH; Start 06/08/16 at 09:00 Diagnostic Test (Pha) (Accucheck) 1 ea 02 XX Last administered on 06/10/16 02: 55; Admin Dose 1 EA; Start 06/08/16 at 02:00 Miscellaneous Information 1 ea NOTE XX ; Start 06/07/16 at 23:00 Glucose (Glutose) 15 gm Q15M PRN PO DECREASED GLUCOSE; Start 06/07/16 at 23:00 Glucose (Glutose) 22.5 gm Q15M PRN PO DECREASED GLUCOSE; Start 06/07/16 at 23: 00 Dextrose (D50w Syringe) 25 ml Q15M PRN IV DECREASED GLUCOSE; Start 06/07/16 at 23:00 Dextrose (D50w Syringe) 50 ml Q15M PRN IV DECREASED GLUCOSE; Start 06/07/16 at 23:00 Glucagon (Glucagen) 1 mg Q15M PRN IM DECREASED GLUCOSE; Start 06/07/16 at 23:00 Glucose (Glutose) 15 gm Q15M PRN BUCCAL DECREASED GLUCOSE; Start 06/07/16 at 23 :00 Hydralazine HCl (Apresoline) 10 mg Q6H PRN IV sbp > 160 Last administered on 12:21; Admin Dose 10 MG; Start 06/07/16 at 23:30 Lisinopril (Zestril) 40 mg DAILY PO Last administered on 06/11/16 08:40; Admin Dose 40 MG; Start 06/11/16 at 09:00 Enoxaparin Sodium (Lovenox) 40 mg DAILY SC Last administered on 06/11/16 08:47 ; Admin Dose 40 MG; Start 06/11/16 at 09:00 Insulin Glargine (Lantus) 15 unit DAILY@08 SC Last administered on 06/11/16t 07: 47; Admin Dose 15 UNIT; Start 06/11/16 at 08:00 Nifedipine (Procardia Xl) 30 mg DAILY PO ; Start 06/12/16 at 09:00; Status DAILY OSORIO Jun 11, 2016 13:04
[2016-06-11] MEDS ORDERED: FURO40TA4 PO (15:48)
--- NOTE | 2016-06-11 15:50 | PDOCDIS ---
Discharge Instructions CONDITION Patient Condition: Good HOME CARE INSTRUCTIONS: Special Diet: Diabetic Diet ACTIVITY: Activity Restrictions: No Restrictions FOLLOW UP/APPOINTMENTS Appointments F/U WITH YOUR PCP IN 1-2 WEEKS, F/U WITH A CARDIOTHORACIC SURGEON FOR EVALUATION OF RECURRENT PLEURAL EFFUSIONS IN THE RIGHT LUNG JOSE MAZARIEGOS Jun 11, 2016 15:50
[2016-06-11] MEDS ORDERED: LISI40TA9 PO (16:43)
[2016-06-11] MEDS ORDERED: NIFE60TA7 PO (16:43)
[2016-06-11] MEDS ORDERED: hydrALAzine 20 MG INJ IV ONE (17:00)
--- NOTE | 2016-06-12 03:38 | DS ---
DATE OF ADMISSION: 06/07/2016 DATE OF DISCHARGE: 06/11/2016 DIAGNOSES: 1. Acute hypoxemic respiratory failure secondary to large right pleural effusion status post thorac entesis. Cultures and pathology were negative. [facility] 2. Hypertension, improved with new regimen. Discharge with new medications. 3. Chronic obstructive pulmonary disease exacerbation, resolved. 4. Diabetes with neuropathy. Continue home gabapentin. HOSPITAL COURSE: The patient is a 61-year-old male with history of type 2 diabetes, essential hyper tension, diabetic neuropathy as well as recurrent right-sided pleural effusions. The patient presen ts with shortness of breath and hypoxemic respiratory failure. The patient was found to have large right pleural effusion. Thoracentesis was done. Pulmonology did consult as well as cardiology. Pa thology and cultures of the fluid were negative. The patient did have a followup chest x-ray that s howed a recurrence of the effusion. He was continued on diuresis and his effusion did improve with diuretics. Of note, the patient had liver ultrasound to rule out any cirrhosis and hepatic hydrotho rax and his liver ultrasound was negative. The exact etiology of the right-sided pleural effusion w as unclear. The patient was stable, saturating well on room air. Of note, his blood pressure was e levated and his lisinopril was increased from 20 to 40. He was also started on nifedipine 30 mg and tolerated this well. Of note, patient had an echo during his last hospitalization that showed a no rmal EF and no diastolic failure either, hence it was not felt that this was cardiac in nature. The patient's chest x-ray the day prior to discharge had showed improvement and he was clinically stabl e and felt to be stable for discharge. Today the patient's vitals, labs, physical exam were stable, he had no acute complaints and q uestions were answered. CONDITION ON DISCHARGE: Stable. DISPOSITION: To home. MEDICATIONS: The patient is to continue his usual home medications but was to stop his Lasix 40 mg daily and was given a new prescription for Lasix 40 p.o. b.i.d., lisinopril 40 daily, and nifedipine 60 mg daily. FOLLOWUP: The patient is to follow up with PCP in 1 to 2 weeks and is to follow up with the cardiot horacic surgeon for evaluation of recurrent right-sided pleural effusion. Greater than 30 minutes was spent coordinating discharge of patient. Dictated By: JOSE OH/NTS Conf#: [id number] DID#: [id number]
[2016-06-12] MEDS ORDERED: NIFEdipine (XL) 30 MG TAB PO SCH (09:00)
== END 2016-06-11 18:10 | disposition home or self-care (01) | DRG 190 ==
LOC: TEL 21:39
PROVIDERS: ADMIT Student in an Organized Health Care Education/Training Program; ATTEND Student in an Organized Health Care Education/Training Program
PROC: 0W993ZZ Drainage of Right Pleural Cavity, Percutaneous Approach (ICD-10-PCS; principal; 2016-06-08)
DX: J44.1 Chronic obstructive pulmonary disease with (acute) exacerbation (principal); I50.33 Acute on chronic diastolic (congestive) heart failure; J96.01 Acute respiratory failure with hypoxia; J90 Pleural effusion, not elsewhere classified; I42.9 Cardiomyopathy, unspecified; I10 Essential (primary) hypertension; E11.42 Type 2 diabetes mellitus with diabetic polyneuropathy; D64.9 Anemia, unspecified
CPT/HCPCS: 71010; 76705; 76942; 80048; 80061; 81001; 81003; 82042; 82550; 82553; 82962; 83036; 83615; 83735; 83880; 84100; 84443; 84484; 85025; 85610; 85730; 87070; 87102; 87116; 88104; 88305; 93005; 94640; J0360; J1650; J1815; J1940; J3475; J7030

== ENCOUNTER 2016-11-26 07:42 | Inpatient (IN) | payer BC ==
[2016-11-26] VITALS (15 sets, daily range): BP systolic 90–225; BP diastolic 47–108; PULSE 69–91; RESP 16–28
[~2016-11-26 07:42] MED LIST changes: -FURO-110 PO; +FURO40TA4 PO; -LISI20TA11 PO; +LISI40TA9 PO; +NIFE60TA7 PO
[2016-11-26] MEDS ORDERED: ZOLPIDEM 5 MG TAB PO PRN (12:30)
[2016-11-26] MEDS ORDERED: HYDROCODONE/APAP (5/325) TAB PO PRN (12:30)
[2016-11-26] MEDS ORDERED: NACL 0.9% 3 ML SYG IV SCH (12:30)
[2016-11-26] MEDS ORDERED: GLUCOSE GEL 15 GRAM TUBE PO PRN ×2 (12:30)
[2016-11-26] MEDS ORDERED: GLUCOSE GEL 15 GRAM TUBE BUCCAL PRN (12:30)
[2016-11-26] MEDS ORDERED: morphine 2 MG INJ IV PRN (12:30)
[2016-11-26] MEDS ORDERED: DEXTROSE 50% 50 ML SYRINGE IV PRN ×2 (12:30)
[2016-11-26] MEDS ORDERED: ONDANSETRON 4 MG INJ IV PRN (12:30)
[2016-11-26] MEDS ORDERED: hydrALAzine 20 MG INJ IV PRN (12:30)
[2016-11-26] MEDS ORDERED: hydrALAzine 20 MG INJ IV ONE (12:30)
[2016-11-26] MEDS ORDERED: GLUCAGON 1 MG INJ IM PRN (12:30)
[2016-11-26] MEDS: GABAPENTIN 300 MG CAP PO SCH ×2 (13:13→20:50)
[2016-11-26] MEDS: LISINOPRIL 20 MG TAB PO SCH (13:13)
[2016-11-26] MEDS: METOPROLOL (XL) 25 MG TAB PO SCH ×2 (13:13→20:50)
[2016-11-26] MEDS: NIFEdipine (XL) 60 MG TAB PO SCH (13:14)
[2016-11-26] MEDS: FUROSEMIDE 40 MG TAB PO SCH ×2 (13:14→20:49)
--- NOTE | 2016-11-26 13:52 | RADRPT ---
PROCEDURE: XR Chest. CLINICAL INDICATION: Shortness of breath TECHNIQUE: Single frontal view of the chest was obtained COMPARISON: Chest x-ray 06/10/2016 FINDINGS: There are low lung volumes. The cardiac silhouette is moderately enlarged, unchanged. There are atherosclerotic calcifications of the thoracic aorta. There is mild tortuosity of the thoracic aorta. Interval increase in confluence and extent of the airspace disease in the right mid and lower lung, which may be due to increased right pleural effusion, atelectasis, and/or worsening consolidation. I ll-defined left retrocardiac opacity persists and represent atelectasis and/or consolidation. Internal slight increase in pulmonary vascular congestion and interstitial edema. There are degenerative changes of the visualized spine. IMPRESSION: 1. Interval worsening of pleural and/or parenchymal disease in the right mid and lower lung which ma y be attributable to increased right pleural effusion, worsening atelectasis, and / or consolidation . 2. Interval slight increase in bibasilar congestion and interstitial edema. 3. Persistent ill-defined left retrocardiac opacity. RPTAT: PP Physician Kalyn Date Time Electronically viewed and signed by Physician Kalyn on 11/26/2016 13:51 RC/
[2016-11-26] MEDS: ALBUTEROL/IPRATROPIUM (NEB) 3 ML AMP HHN PRN (15:28)
--- NOTE | 2016-11-26 16:36 | HP ---
Date/Time of Note Date/Time of Note DATE: 11/26/16 TIME: 16:30 Assessment/Plan VTE Prophylaxis VTE Prophylaxis Intervention: SCD's Lines/Catheters IV [facility] Saline Lock Assessment/Plan Chief Complaint/Hosp Course 1. COPD exacerbation Antibiotics and steroids as well as breathing treatments as needed Pulmonology consultation, follow-up and chest x-ray 2. Diabetes check A1c, NovoLog sliding scale and schedule insulin 3. Hypertension Resume home meds, hydralazine as needed 4. History of pleural effusions Follow-up chest x-ray Prophylaxis: SCDs Problems: HPI/ROS Admit Date/Time Admit Date/Time Nov 26, 2016 at 08:55 Hx of Present Illness Patient is a 61-year-old male with a history of COPD, diabetes with neuropathy as well as history of right-sided pleural effusion status post thoracentesis in the past. Patient presents with 4 days of worsening shortness of breath, he denies any chest pain, nausea vomiting or fever. Patient denies any other development of a pulmonary effusion since his admission for this issue in June of this year. She states that he continues to smoke, states that he uses his diabetic meds only when his sugars are high. ROS Constitutional: improved, no complaints Eyes: no complaints ENT: no complaints Respiratory: shortness of breath Cardiovascular: no complaints Gastrointestinal: no complaints Genitourinary: no complaints Musculoskeletal: no complaints Skin: no complaints Neurologic: no complaints Endocrine: no complaints Lymphatic: no complaints Psychological: nl mood/affect, no complaints Immunologic: no complaints PMH/Family/Social Past Medical History Hypertension, COPD, diabetes, right-sided pleural effusion status post thoracentesis Past Surgical History History of thoracentesis appears at least twice Family History Significant Family History: no pertinent family hx Social History Smoking Status: Current every day smoker Drug Use: none Exam/Review of Systems Vital Signs Vitals Vital Signs Date Time Temp Pulse Resp B/P Pulse Ox O2 Delivery O2 Flow Rate FiO2 11/26/16 16:10 74 11/26/16 15:32 92 3.0 11/26/16 15:30 23 Nasal Cannula 11/26/16 15:16 94/55 11/26/16 15:09 98.6 Exam Constitutional: alert, oriented Head: normocephalic Respiratory: wheezing Cardiovascular: regular rate and rhythm Gastrointestinal: distended, non-tender, soft Musculoskeletal: nl extremities to inspection Medications Medications Current Medications Ondansetron HCl (Zofran Inj) 4 mg Q6H PRN IV NAUSEA AND/OR VOMITING; Start at 12:30 Acetaminophen (Tylenol Tab) 650 mg Q6H PRN PO PAIN LEVEL 1-3 OR FEVER; Start at 12:30 Acetaminophen/ Hydrocodone Bitart ([place] (5/325)) 1 tab Q6H PRN PO MODERATE PAIN LEVEL 4-6; Start 11/26/16 at 12:30 Morphine Sulfate (morphine) 2 mg Q4H PRN IV SEVERE PAIN LEVEL 7-10; Start 11/26 at 12:30 Docusate Sodium (Colace) 100 mg Q12H PRN PO CONSTIPATION; Start 11/26/16 at 12: 30 Zolpidem Tartrate (Ambien) 5 mg QHS PRN PO SLEEP; Start 11/26/16 at 12:30 Aspirin (Aspirin) 81 mg DAILY PO ; Start 11/27/16 at 09:00 Gabapentin (Neurontin) 300 mg TID PO Last administered on 11/26/16 13:13; Admin Dose 300 MG; Start 11/26/16 at 13:00 Insulin Glargine (Lantus) 30 unit QHS SC ; Start 11/26/16 at 21:00 Lisinopril (Zestril) 40 mg DAILY PO Last administered on 11/26/16 13:13; Admin Dose 40 MG; Start 11/26/16 at 12:30 Metoprolol Succinate (Toprol Xl) 25 mg BID PO Last administered on 11/26/16 13 :13; Admin Dose 25 MG; Start 11/26/16 at 12:30 Nifedipine (Procardia Xl) 60 mg DAILY PO Last administered on 11/26/16 13:14; Admin Dose 60 MG; Start 11/26/16 at 12:30 Prednisone (Prednisone) 20 mg DAILY PO ; Start 11/27/16 at 09:00 Salmeterol Xinafoate/ Fluticasone (Advair 250/50 Diskus) 1 inh BID INH ; Start 11/26/16 at 21:00 Hydralazine HCl (Apresoline) 10 mg Q4H PRN IV SBP>170; Start 11/26/16 at 12:30 Miscellaneous Information 1 ea NOTE XX ; Start 11/26/16 at 12:30 Glucose (Glutose) 15 gm Q15M PRN PO DECREASED GLUCOSE; Start 11/26/16 at 12:30 Glucose (Glutose) 22.5 gm Q15M PRN PO DECREASED GLUCOSE; Start 11/26/16 at 12: 30 Dextrose (D50w Syringe) 25 ml Q15M PRN IV DECREASED GLUCOSE; Start 11/26/16 at 12:30 Dextrose (D50w Syringe) 50 ml Q15M PRN IV DECREASED GLUCOSE; Start 11/26/16 at 12:30 Glucagon (Glucagen) 1 mg Q15M PRN IM DECREASED GLUCOSE; Start 11/26/16 at 12:30 Glucose (Glutose) 15 gm Q15M PRN BUCCAL DECREASED GLUCOSE; Start 11/26/16 at 12 :30 JOSE MAZARIEGOS Nov 26, 2016 16:36
[2016-11-26] MEDS: INSULIN ASPART [NOVOLOG] 3 ML PEN SC SCH ×2 (17:55→21:16)
[2016-11-26] MEDS ORDERED: INSULIN ASPART [NOVOLOG] 3 ML PEN SC SCH (17:55)
[2016-11-26] MEDS: metFORMIN 500 MG TAB PO SCH (18:57)
[2016-11-26] MEDS: CEFTRIAXONE 1 GM/50 ML (PMX) 50 ML IVPB SCH (18:57)
[2016-11-26] MEDS: AZITHROMYCIN 500MG/NS (PMX) 250 ML IVPB SCH (20:48)
[2016-11-26] MEDS: SALMETEROL/FLUTICASONE 250/50 INHA INH SCH (20:49)
[2016-11-26] MEDS ORDERED: INSULIN GLARGINE [LANtus] 3 ML PEN SC SCH (21:00)
[2016-11-26] MEDS: METHYLPREDNISOLONE 125 MG INJ IV SCH (21:13)
[2016-11-27] VITALS (11 sets, daily range): BP systolic 100–158; BP diastolic 63–86; PULSE 70–98; RESP 18–19
[2016-11-27] MEDS: ACCU-CHEK XX SCH ×2 (02:24)
[2016-11-27] MEDS: FUROSEMIDE 40 MG TAB PO SCH ×2 (05:47→17:07)
[2016-11-27] MEDS: METHYLPREDNISOLONE 125 MG INJ IV SCH ×3 (05:49→21:21)
[2016-11-27] MEDS: INSULIN ASPART [NOVOLOG] 3 ML PEN SC SCH ×7 (07:54→21:29)
[2016-11-27] MEDS: metFORMIN 500 MG TAB PO SCH ×2 (07:58→17:07)
[2016-11-27 08:06] LABS: ADD SCAN DIFF NO
[2016-11-27] MEDS: GABAPENTIN 300 MG CAP PO SCH ×3 (08:07→21:21)
[2016-11-27] MEDS: LISINOPRIL 20 MG TAB PO SCH (08:08)
[2016-11-27] MEDS: ASPIRIN 81 MG TAB PO SCH (08:08)
[2016-11-27] MEDS: METOPROLOL (XL) 25 MG TAB PO SCH ×2 (08:09→21:22)
[2016-11-27] MEDS: SALMETEROL/FLUTICASONE 250/50 INHA INH SCH ×2 (08:09→21:22)
[2016-11-27] MEDS: NIFEdipine (XL) 60 MG TAB PO SCH (08:09)
[2016-11-27 08:14] LABS: BASOPHILS % 0.1 % (0.0-2.0); HEMATOCRIT 33.7 % (42.0-52.0); HEMOGLOBIN 10.5 g/dl (14.0-18.0); LYMPHOCYTES # 0.7 10^3/ul (0.8-2.9); LYMPHOCYTES % 5.3 % (15.0-51.0); MEAN CORPUSCULAR HEMOGLOBIN 28.2 pg (29.0-33.0); MEAN CORPUSCULAR HGB CONC 31.2 g/dl (32.0-37.0); MEAN CORPUSCULAR VOLUME 90.3 fl (82.0-101.0); MEAN PLATELET VOLUME 10.2 fl (7.4-10.4); MONOCYTE # 0.3 10^3/ul (0.3-0.9); MONOCYTES % 2.6 % (0.0-11.0); NEUTROPHIL # 11.4 10^3/ul (1.6-7.5); NEUTROPHILS % 91.4 % (39.0-77.0); PLATELET COUNT 227 10^3/UL (140-415); RED BLOOD COUNT 3.73 10^6/ul (4.70-6.10); RED CELL DISTRIBUTION WIDTH 13.8 % (11.5-14.5); WHITE BLOOD COUNT 12.4 10^3/ul (4.8-10.8)
[2016-11-27 08:33] LABS: CALCIUM 9.1 mg/dl (8.4-10.2); CHOL/HDL RATIO 3.4 RATIO; CREATININE 1.03 mg/dl (0.61-1.24); MAGNESIUM 2.1 mg/dl (1.7-2.5); PHOSPHORUS 5.1 mg/dl (2.5-4.9); POTASSIUM 4.8 mmol/L (3.5-5.1)
[2016-11-27] MEDS ORDERED: predniSONE 20 MG TAB PO SCH (09:00)
[2016-11-27 16:04] LABS: INR 1.14; PROTIME 14.6 Sec (12.2-14.2); PT RATIO 1.1
--- NOTE | 2016-11-27 16:11 | PN ---
Date/Time of Note Date/Time of Note DATE: 11/27/16 TIME: 16:03 Assessment/Plan VTE Prophylaxis VTE Prophylaxis Intervention: SCD's Lines/Catheters IV Catheter Type (from [facility]): Saline Lock Assessment/Plan Chief Complaint/Hosp Course 1. Acute respiratory distress secondary to COPD exacerbation and right pleural effusion Antibiotics and steroids as well as breathing treatments as needed, decrease steroid frequency to every 12 hours Pulmonology consultation Chest x-ray shows right pleural effusion, have ordered an ultrasound-guided thoracentesis, the patient has a history of recurrent right-sided pleural effusions with previous workup having been negative 2. 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 Hypertension-stable Continue home meds, hydralazine as needed Prophylaxis: SCDs Problems: Subjective 24 Hr Interval Summary Respiratory: shortness of breath Exam/Review of Systems Vital Signs Vitals Vital Signs Date Time Temp Pulse Resp B/P Pulse Ox O2 Delivery O2 Flow Rate FiO2 11/27/16 15:31 98.2 71 18 115/66 94 11/27/16 08:00 Nasal Cannula 3.0 Intake and Output 11/26/16 11/26/16 11/27/16 15:00 23:00 07:00 Intake Total 530 ml 700 ml Output Total 350 ml 800 ml 1075 ml Balance -350 ml -270 ml -375 ml Exam Constitutional: alert Respiratory: clear to auscultation Cardiovascular: regular rate and rhythm Gastrointestinal: soft, No distended Musculoskeletal: nl extremities to inspection Results Result Diagram: 11/27/16 0728 11/27/16 0728 Results 24 hrs Laboratory Tests Test 11/26/16 20:46 11/27/16 02:20 11/27/16 07:28 11/27/16 07:49 Bedside Glucose 357 H 294 H 294 H White Blood Count 12.4 #H Red Blood Count 3.73 L Hemoglobin 10.5 L Hematocrit 33.7 L Mean Corpuscular Volume 90.3 Mean Corpuscular Hemoglobin 28.2 L Mean Corpuscular Hemoglobin Concent 31.2 L Red Cell Distribution Width 13.8 Platelet Count 227 Mean Platelet Volume 10.2 # Neutrophils % 91.4 H Lymphocytes % 5.3 L Monocytes % 2.6 Eosinophils % 0.0 Basophils % 0.1 Neutrophils # 11.4 H Lymphocytes # 0.7 L Monocytes # 0.3 Eosinophils # 0.0 Basophils # 0.0 Nucleated Red Blood Cells # 0.0 Sodium Level 142 Potassium Level 4.8 Chloride Level 94 L Carbon Dioxide Level 32 H Anion Gap 21 H Blood Urea Nitrogen 40 H Creatinine 1.03 Glucose Level 302 H Hemoglobin A1c 8.2 H Calcium Level 9.1 Phosphorus Level 5.1 H Magnesium Level 2.1 Triglycerides Level 74 Cholesterol Level 138 LDL Cholesterol, Calculated 83 HDL Cholesterol 40 Cholesterol/HDL Ratio 3.4 Test 11/27/16 11:43 Bedside Glucose 287 H Medications Medications Current Medications Ondansetron HCl (Zofran Inj) 4 mg Q6H PRN IV NAUSEA AND/OR VOMITING; Start at 12:30 Acetaminophen (Tylenol Tab) 650 mg Q6H PRN PO PAIN LEVEL 1-3 OR FEVER; Start at 12:30 Acetaminophen/ Hydrocodone Bitart ([place] (5/325)) 1 tab Q6H PRN PO MODERATE PAIN LEVEL 4-6; Start 11/26/16 at 12:30 Morphine Sulfate (morphine) 2 mg Q4H PRN IV SEVERE PAIN LEVEL 7-10; Start 11/26 at 12:30 Docusate Sodium (Colace) 100 mg Q12H PRN PO CONSTIPATION; Start 11/26/16 at 12: 30 Zolpidem Tartrate (Ambien) 5 mg QHS PRN PO SLEEP; Start 11/26/16 at 12:30 Aspirin (Aspirin) 81 mg DAILY PO Last administered on 11/27/16 08:08; Admin Dose 81 MG; Start 11/27/16 at 09:00 Gabapentin (Neurontin) 300 mg TID PO Last administered on 11/27/16 12:06; Admin Dose 300 MG; Start 11/26/16 at 13:00 Insulin Glargine (Lantus) 30 unit QHS SC Last administered on 11/26/16 20:54; Admin Dose 30 UNIT; Start 11/26/16 at 21:00 Lisinopril (Zestril) 40 mg DAILY PO Last administered on 11/27/16 08:08; Admin Dose 40 MG; Start 11/26/16 at 12:30 Metoprolol Succinate (Toprol Xl) 25 mg BID PO Last administered on 11/27/16 08 :09; Admin Dose 25 MG; Start 11/26/16 at 12:30 Nifedipine (Procardia Xl) 60 mg DAILY PO Last administered on 11/27/16 08:09; Admin Dose 60 MG; Start 11/26/16 at 12:30 Salmeterol Xinafoate/ Fluticasone (Advair 250/50 Diskus) 1 inh BID INH Last administered on 11/27/16 08:09; Admin Dose 1 INH; Start 11/26/16 at 21:00 Hydralazine HCl (Apresoline) 10 mg Q4H PRN IV SBP>170; Start 11/26/16 at 12:30 Miscellaneous Information 1 ea NOTE XX ; Start 11/26/16 at 12:30 Glucose (Glutose) 15 gm Q15M PRN PO DECREASED GLUCOSE; Start 11/26/16 at 12:30 Glucose (Glutose) 22.5 gm Q15M PRN PO DECREASED GLUCOSE; Start 11/26/16 at 12: 30 Dextrose (D50w Syringe) 25 ml Q15M PRN IV DECREASED GLUCOSE; Start 11/26/16 at 12:30 Dextrose (D50w Syringe) 50 ml Q15M PRN IV DECREASED GLUCOSE; Start 11/26/16 at 12:30 Glucagon (Glucagen) 1 mg Q15M PRN IM DECREASED GLUCOSE; Start 11/26/16 at 12:30 Glucose (Glutose) 15 gm Q15M PRN BUCCAL DECREASED GLUCOSE; Start 11/26/16 at 12 :30 Methylprednisolone Sodium Succinate 60 mg 60 mg Q8 IV Last administered on 11/27 14:07; Admin Dose 60 MG; Start 11/26/16 at 22:00 Ceftriaxone Sodium 50 ml @ 100 mls/hr Q24H IVPB Last administered on 18:57; Admin Dose 100 MLS/HR; Start 11/26/16 at 17:00 Azithromycin (Zithromax 500mg/ NS (Pmx)) 250 ml @ 250 mls/hr Q24H IVPB Last administered on 11/26/16 20:48; Admin Dose 250 MLS/HR; Start 11/26/16 at 18:00 Diagnostic Test (Pha) (Accu-Chek) 1 ea 02 XX Last administered on 11/27/16 02: 24; Admin Dose 1 EA; Start 11/27/16 at 02:00 Diagnostic Test (Pha) (Accu-Chek) 1 ea XX Last administered on 11/27/16t 02: 24; Admin Dose 1 EA; Start 11/27/16 at 02:00 JOSE MAZARIEGOS Nov 27, 2016 16:11
[2016-11-27] MEDS: CEFTRIAXONE 1 GM/50 ML (PMX) 50 ML IVPB SCH (16:51)
[2016-11-27] MEDS: AZITHROMYCIN 500MG/NS (PMX) 250 ML IVPB SCH (17:08)
[2016-11-27] MEDS ORDERED: INSULIN GLARGINE [LANtus] 3 ML PEN SC SCH ×2 (21:00)
[2016-11-28] VITALS (14 sets, daily range): BP systolic 101–183; BP diastolic 55–83; PULSE 71–85; RESP 18–20
[2016-11-28] MEDS: ACCU-CHEK XX SCH ×2 (01:41)
[2016-11-28] MEDS: DOCUSATE SODIUM 100 MG CAP PO PRN (01:55)
[2016-11-28] MEDS ORDERED: INSULIN ASPART [NOVOLOG] 3 ML PEN SC ONE ×2 (02:00→04:00)
[2016-11-28] MEDS: FUROSEMIDE 40 MG TAB PO SCH (04:50)
[2016-11-28 07:40] LABS: BASOPHILS % 0.1 % (0.0-2.0); HEMATOCRIT 34.7 % (42.0-52.0); HEMOGLOBIN 10.4 g/dl (14.0-18.0); LYMPHOCYTES # 0.7 10^3/ul (0.8-2.9); LYMPHOCYTES % 4.2 % (15.0-51.0); MEAN CORPUSCULAR HEMOGLOBIN 27.4 pg (29.0-33.0); MEAN CORPUSCULAR VOLUME 91.6 fl (82.0-101.0); MEAN PLATELET VOLUME 10.3 fl (7.4-10.4); MONOCYTE # 1.2 10^3/ul (0.3-0.9); MONOCYTES % 6.9 % (0.0-11.0); NEUTROPHIL # 14.8 10^3/ul (1.6-7.5); NEUTROPHILS % 87.7 % (39.0-77.0); PLATELET COUNT 232 10^3/UL (140-415); RED BLOOD COUNT 3.79 10^6/ul (4.70-6.10); WHITE BLOOD COUNT 16.9 10^3/ul (4.8-10.8)
[2016-11-28] MEDS: INSULIN ASPART [NOVOLOG] 3 ML PEN SC SCH ×7 (07:44→20:42)
[2016-11-28 07:52] LABS: CALCIUM 9.2 mg/dl (8.4-10.2); CREATININE 1.03 mg/dl (0.61-1.24); POTASSIUM 4.7 mmol/L (3.5-5.1)
[2016-11-28] MEDS: LISINOPRIL 20 MG TAB PO SCH (08:12)
[2016-11-28] MEDS: METOPROLOL (XL) 25 MG TAB PO SCH ×2 (08:12→20:40)
[2016-11-28] MEDS: ASPIRIN 81 MG TAB PO SCH (08:13)
[2016-11-28] MEDS: GABAPENTIN 300 MG CAP PO SCH ×3 (08:13→20:39)
[2016-11-28] MEDS: NIFEdipine (XL) 60 MG TAB PO SCH (08:13)
[2016-11-28] MEDS: metFORMIN 500 MG TAB PO SCH ×2 (08:14→17:54)
[2016-11-28] MEDS: METHYLPREDNISOLONE 125 MG INJ IV SCH (08:16)
[2016-11-28] MEDS: SALMETEROL/FLUTICASONE 250/50 INHA INH SCH ×2 (08:17→20:39)
--- NOTE | 2016-11-28 11:02 | CONS ---
Date/Time of Note Date/Time of Note DATE: 11/28/16 TIME: 10:59 Assessment/Plan Assessment/Plan Additional Assessment/Plan Chest x-ray was reviewed from yesterday which is showing right lower lobe infiltrative changes with possibly a recommendation of right pleural effusion. Assessment recommendations; 1. Patient admitted with shortness of breath with right lower lobe pneumonia/ pleural effusion. 2. History of hypertension diabetes. 3. Prior history of pleural effusions. Continue current treatment. Obtain ultrasound-guided thoracentesis on the right side. Consultation Date/Type/Reason Admit Date/Time Nov 26, 2016 at 08:55 Date of Consultation: Nov 28, 2016 Type of Consultation: Pulmonary Reason for Consultation Pulmonary consultation requested for evaluation of shortness of breath. History presenting; patient is a 61-year-old white male who was admitted via ER when he came to the hospital with complaints of shortness of breath going on for the last few days. Upon evaluation a chest x-ray was done which is showing right lower lobe infiltrative changes with possibly recommendation of right pleural effusion. Patient has been started on intravenous Zithromax and Rocephin. According to him he is feeling somewhat better. Patient denies any chest pain, wheezing, cough or sputum production. Past medical history; next 1. Patient with a history of recurrent right pleural effusion status post thoracentesis 2 in the past. The last one was in June of this year. 2. History of diabetes and hypertension. Medications; reviewed. Allergies; none. Social history; patient is a non-smoker. Family history; noncontributory. 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 Review systems; denies any headache, visual changes, sinus symptoms. Shortness of breath has improved. Denies any sputum production or hemoptysis. Denies any wheezing. Denies any abdominal pain, nausea vomiting. Denies any edema. Complains of mild orthopnea. Denies any urinary symptoms. General exam; middle-aged male, awake alert currently in no distress. Eyes: no complaints ENT: no complaints Respiratory: shortness of breath Cardiovascular: no complaints Gastrointestinal: no complaints Genitourinary: no complaints Musculoskeletal: no complaints Skin: no complaints Neurologic: no complaints Lymphatic: no complaints Psychological: nl mood/affect, no complaints Immunologic: no complaints Social History Smoking Status: Current every day smoker Drug Use: none Exam/Review of Systems Vital Signs Vitals Vital Signs Date Time Temp Pulse Resp B/P Pulse Ox O2 Delivery O2 Flow Rate FiO2 11/28/16 08:27 83 11/28/16 08:00 Nasal Cannula 3.0 11/28/16 07:34 98.0 18 170/81 98 Intake and Output 11/27/16 11/27/16 11/28/16 15:00 23:00 07:00 Intake Total 2000 ml 220 ml Output Total 1200 ml 250 ml Balance 800 ml -30 ml Exam HEENT exam; supple neck, no JVD. No lymphadenopathy. Midline trachea. No thyromegaly. Pharynx is clear. Patient is edentulous. Pupils are midsize and reactive to light. Chest exam; diminished breath sounds throughout with scattered crackles. S1-S2 audible, no murmurs. Regular rhythm. Abdomen exam; soft, protuberant. No organomegaly. Bowel sounds audible. Extremity exam; trace lower extremity edema. No clubbing. Pulses 1+ bilaterally. 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 Results Result Diagram: 11/28/16 0700 11/28/16 0700 Results 24 hrs Laboratory Tests Test 11/27/16 11:43 11/27/16 15:11 11/27/16 16:59 11/27/16 21:19 Bedside Glucose 287 H 222 H 329 H Prothrombin Time 14.6 H Prothrombin Time Ratio 1.1 INR International Normalized Ratio 1.14 Test 11/28/16 01:25 11/28/16 03:26 11/28/16 06:02 11/28/16 07:00 Bedside Glucose 512 *H 471 *H 376 H White Blood Count 16.9 #H Red Blood Count 3.79 L Hemoglobin 10.4 L Hematocrit 34.7 L Mean Corpuscular Volume 91.6 Mean Corpuscular Hemoglobin 27.4 L Mean Corpuscular Hemoglobin Concent 30.0 L Red Cell Distribution Width 14.0 Platelet Count 232 Mean Platelet Volume 10.3 Neutrophils % 87.7 H Lymphocytes % 4.2 L Monocytes % 6.9 Eosinophils % 0.0 Basophils % 0.1 Nucleated Red Blood Cells % 0.0 Neutrophils # 14.8 H Lymphocytes # 0.7 L Monocytes # 1.2 H Eosinophils # 0.0 Basophils # 0.0 Nucleated Red Blood Cells # 0.0 Sodium Level 145 H Potassium Level 4.7 Chloride Level 95 L Carbon Dioxide Level 35 H Anion Gap 20 H Blood Urea Nitrogen 52 H Creatinine 1.03 Glucose Level 284 H Calcium Level 9.2 Test 11/28/16 07:38 Bedside Glucose 248 H Medications Medications Current Medications Ondansetron HCl (Zofran Inj) 4 mg Q6H PRN IV NAUSEA AND/OR VOMITING; Start at 12:30 Acetaminophen (Tylenol Tab) 650 mg Q6H PRN PO PAIN LEVEL 1-3 OR FEVER; Start at 12:30 Acetaminophen/ Hydrocodone Bitart ([place] (5/325)) 1 tab Q6H PRN PO MODERATE PAIN LEVEL 4-6; Start 11/26/16 at 12:30 Morphine Sulfate (morphine) 2 mg Q4H PRN IV SEVERE PAIN LEVEL 7-10; Start 11/26 at 12:30 Docusate Sodium (Colace) 100 mg Q12H PRN PO CONSTIPATION Last administered on 01:55; Admin Dose 100 MG; Start 11/26/16 at 12:30 Zolpidem Tartrate (Ambien) 5 mg QHS PRN PO SLEEP; Start 11/26/16 at 12:30 Aspirin (Aspirin) 81 mg DAILY PO Last administered on 11/28/16 08:13; Admin Dose 81 MG; Start 11/27/16 at 09:00 Gabapentin (Neurontin) 300 mg TID PO Last administered on 11/28/16 08:13; Admin Dose 300 MG; Start 11/26/16 at 13:00 Lisinopril (Zestril) 40 mg DAILY PO Last administered on 11/28/16 08:12; Admin Dose 40 MG; Start 11/26/16 at 12:30 Metoprolol Succinate (Toprol Xl) 25 mg BID PO Last administered on 11/28/16 08 :12; Admin Dose 25 MG; Start 11/26/16 at 12:30 Nifedipine (Procardia Xl) 60 mg DAILY PO Last administered on 11/28/16 08:13; Admin Dose 60 MG; Start 11/26/16 at 12:30 Salmeterol Xinafoate/ Fluticasone (Advair 250/50 Diskus) 1 inh BID INH Last administered on 11/28/16 08:17; Admin Dose 1 INH; Start 7/20/17 at 21:00 Hydralazine HCl (Apresoline) 10 mg Q4H PRN IV SBP>170 Last administered on 11/28 04:05; Admin Dose 10 MG; Start 11/26/16 at 12:30 Miscellaneous Information 1 ea NOTE XX ; Start 11/26/16 at 12:30 Glucose (Glutose) 15 gm Q15M PRN PO DECREASED GLUCOSE; Start 11/26/16 at 12:30 Glucose (Glutose) 22.5 gm Q15M PRN PO DECREASED GLUCOSE; Start 11/26/16 at 12: 30 Dextrose (D50w Syringe) 25 ml Q15M PRN IV DECREASED GLUCOSE; Start 11/26/16 at 12:30 Dextrose (D50w Syringe) 50 ml Q15M PRN IV DECREASED GLUCOSE; Start 11/26/16 at 12:30 Glucagon (Glucagen) 1 mg Q15M PRN IM DECREASED GLUCOSE; Start 11/26/16 at 12:30 Glucose 15 gm 15 gm Q15M PRN BUCCAL DECREASED GLUCOSE; Start 11/26/16 at 12:30 Ceftriaxone Sodium 50 ml @ 100 mls/hr Q24H IVPB Last administered on 16:51; Admin Dose 100 MLS/HR; Start 11/26/16 at 17:00 Azithromycin (Zithromax 500mg/ NS (Pmx)) 250 ml @ 250 mls/hr Q24H IVPB Last administered on 11/27/16 17:08; Admin Dose 250 MLS/HR; Start 11/26/16 at 18:00 Diagnostic Test (Pha) (Accu-Chek) 1 ea 02 XX Last administered on 11/28/16 01: 41; Admin Dose 1 EA; Start 11/27/16 at 02:00 Diagnostic Test (Pha) (Accu-Chek) 1 ea 02 XX Last administered on 11/28/16 01: 41; Admin Dose 1 EA; Start 11/27/16 at 02:00 Insulin Glargine (Lantus) 40 unit QHS SC Last administered on 11/27/16 21:27; Admin Dose 40 UNIT; Start 11/27/16 at 21:00 DAILY LARIOS Nov 28, 2016 11:02
--- NOTE | 2016-11-28 14:09 | PN ---
Date/Time of Note Date/Time of Note DATE: 11/28/16 TIME: 14:01 Assessment/Plan VTE Prophylaxis VTE Prophylaxis Intervention: SCD's Lines/Catheters IV [facility] Saline Lock Assessment/Plan Chief Complaint/Hosp Course 1. Acute respiratory distress secondary to COPD exacerbation and right pleural effusion Antibiotics and steroids as well as breathing treatments as needed, DC steroids Pulmonology consultation appreciated Chest x-ray shows right pleural effusion, ultrasound-guided thoracentesis to be done today, the patient has a history of recurrent right-sided pleural effusions with previous workup having been negative 2. Diabetes-A1c at 8.2 -Sugars out of control secondary steroids, have DC'd steroids Continue basal and mealtime insulin doses sugars have already begun to improve with discontinuation of steroids, continue sliding scale wheel lacer and truer 3. Hypertension-stable Continue home meds, hydralazine as needed 4. Anasarca Change Lasix to IV and will start metolazone Prophylaxis: SCDs Problems: Subjective 24 Hr Interval Summary Lymphatic: lymphadema Exam/Review of Systems Vital Signs Vitals Vital Signs Date Time Temp Pulse Resp B/P Pulse Ox O2 Delivery O2 Flow Rate FiO2 11/28/16 12:30 71 11/28/16 11:12 97.8 19 101/55 97 11/28/16 08:00 Nasal Cannula 3.0 Intake and Output 11/27/16 11/27/16 11/28/16 15:00 23:00 07:00 Intake Total 2000 ml 220 ml Output Total 1200 ml 250 ml Balance 800 ml -30 ml Exam Constitutional: alert Respiratory: clear to auscultation Cardiovascular: regular rate and rhythm Gastrointestinal: distended, soft Extremities: edema Results Result Diagram: 11/28/16 0700 11/28/16 0700 Results 24 hrs Laboratory Tests Test 11/27/16 15:11 11/27/16 16:59 11/27/16 21:19 11/28/16 01:25 Prothrombin Time 14.6 H Prothrombin Time Ratio 1.1 INR International Normalized Ratio 1.14 Bedside Glucose 222 H 329 H 512 *H Test 11/28/16 03:26 11/28/16 06:02 11/28/16 07:00 11/28/16 07:38 Bedside Glucose 471 *H 376 H 248 H White Blood Count 16.9 #H Red Blood Count 3.79 L Hemoglobin 10.4 L Hematocrit 34.7 L Mean Corpuscular Volume 91.6 Mean Corpuscular Hemoglobin 27.4 L Mean Corpuscular Hemoglobin Concent 30.0 L Red Cell Distribution Width 14.0 Platelet Count 232 Mean Platelet Volume 10.3 Neutrophils % 87.7 H Lymphocytes % 4.2 L Monocytes % 6.9 Eosinophils % 0.0 Basophils % 0.1 Nucleated Red Blood Cells % 0.0 Neutrophils # 14.8 H Lymphocytes # 0.7 L Monocytes # 1.2 H Eosinophils # 0.0 Basophils # 0.0 Nucleated Red Blood Cells # 0.0 Sodium Level 145 H Potassium Level 4.7 Chloride Level 95 L Carbon Dioxide Level 35 H Anion Gap 20 H Blood Urea Nitrogen 52 H Creatinine 1.03 Glucose Level 284 H Calcium Level 9.2 Test 11/28/16 11:31 Bedside Glucose 110 Medications Medications Current Medications Ondansetron HCl (Zofran Inj) 4 mg Q6H PRN IV NAUSEA AND/OR VOMITING; Start at 12:30 Acetaminophen (Tylenol Tab) 650 mg Q6H PRN PO PAIN LEVEL 1-3 OR FEVER; Start at 12:30 Acetaminophen/ Hydrocodone Bitart ([place] (5/325)) 1 tab Q6H PRN PO MODERATE PAIN LEVEL 4-6; Start 11/26/16 at 12:30 Morphine Sulfate (morphine) 2 mg Q4H PRN IV SEVERE PAIN LEVEL 7-10; Start 11/26 at 12:30 Docusate Sodium (Colace) 100 mg Q12H PRN PO CONSTIPATION Last administered on 01:55; Admin Dose 100 MG; Start 11/26/16 at 12:30 Zolpidem Tartrate (Ambien) 5 mg QHS PRN PO SLEEP; Start 11/26/16 at 12:30 Aspirin (Aspirin) 81 mg DAILY PO Last administered on 11/28/16 08:13; Admin Dose 81 MG; Start 11/27/16 at 09:00 Gabapentin (Neurontin) 300 mg TID PO Last administered on 11/28/16 12:46; Admin Dose 300 MG; Start 11/26/16 at 13:00 Lisinopril (Zestril) 40 mg DAILY PO Last administered on 11/28/16 08:12; Admin Dose 40 MG; Start 11/26/16 at 12:30 Metoprolol Succinate (Toprol Xl) 25 mg BID PO Last administered on 11/28/16 08 :12; Admin Dose 25 MG; Start 11/26/16 at 12:30 Nifedipine (Procardia Xl) 60 mg DAILY PO Last administered on 11/28/16 08:13; Admin Dose 60 MG; Start 11/26/16 at 12:30 Salmeterol Xinafoate/ Fluticasone (Advair 250/50 Diskus) 1 inh BID INH Last administered on 11/28/16 08:17; Admin Dose 1 INH; Start 11/26/16 at 21:00 Hydralazine HCl (Apresoline) 10 mg Q4H PRN IV SBP>170 Last administered on 11/28 04:05; Admin Dose 10 MG; Start 11/26/16 at 12:30 Miscellaneous Information 1 ea NOTE XX ; Start 11/26/16 at 12:30 Glucose (Glutose) 15 gm Q15M PRN PO DECREASED GLUCOSE; Start 11/26/16 at 12:30 Glucose (Glutose) 22.5 gm Q15M PRN PO DECREASED GLUCOSE; Start 11/26/16 at 12: 30 Dextrose (D50w Syringe) 25 ml Q15M PRN IV DECREASED GLUCOSE; Start 11/26/16 at 12:30 Dextrose (D50w Syringe) 50 ml Q15M PRN IV DECREASED GLUCOSE; Start 11/26/16 at 12:30 Glucagon (Glucagen) 1 mg Q15M PRN IM DECREASED GLUCOSE; Start 11/26/16 at 12:30 Glucose 15 gm 15 gm Q15M PRN BUCCAL DECREASED GLUCOSE; Start 11/26/16 at 12:30 Ceftriaxone Sodium 50 ml @ 100 mls/hr Q24H IVPB Last administered on 16:51; Admin Dose 100 MLS/HR; Start 11/26/16 at 17:00 Azithromycin (Zithromax 500mg/ NS (Pmx)) 250 ml @ 250 mls/hr Q24H IVPB Last administered on 11/27/16 17:08; Admin Dose 250 MLS/HR; Start 11/26/16 at 18:00 Diagnostic Test (Pha) (Accu-Chek) 1 ea 02 XX Last administered on 11/28/16 01: 41; Admin Dose 1 EA; Start 11/27/16 at 02:00 Diagnostic Test (Pha) (Accu-Chek) 1 ea 02 XX Last administered on 11/28/16 01: 41; Admin Dose 1 EA; Start 11/27/16 at 02:00 Insulin Glargine (Lantus) 40 unit QHS SC Last administered on 11/27/16 21:27; Admin Dose 40 UNIT; Start 11/27/16 at 21:00 JOSE MAZARIEGOS Nov 28, 2016 14:09
[2016-11-28] MEDS: METOLAZONE 5 MG TAB PO SCH (14:43)
[2016-11-28] MEDS ORDERED: LIDOCAINE 1% (MPF) 5 ML VIAL ONE (17:14)
--- NOTE | 2016-11-28 17:22 | RADRPT ---
PROCEDURE: US guided right thoracentesis. CLINICAL INDICATION: Shortness of breath. Right pleural effusion. TECHNIQUE: Prior to the procedure, informed consent was obtained. The risks, benefits, and alternatives were e xplained to the patient or the patient's family, including but not limited to bleeding, infection, p ain, visceral or vascular damage, shock, pneumothorax, chest tube placement, air embolism, and . The patient or the patient's family understood the risks and the alternatives and wished to proce ed with the study. Informed written consent was obtained. A procedural pause was performed. The patient's name, date of , and procedure to be performed were verified. Ultrasound of the right hemithorax was performed in the axial and sagittal planes. A right pleural e ffusion is noted. Utilizing ultrasound guidance, optimal location for entry to the pleural cavity wa s ascertained. The overlying skin was prepped and draped in the usual sterile fashion. Approximate ly 10 ml of 1% Xylocaine was injected locally for pain control. Using ultrasound guidance, a 5-Fren Yueh catheter was introduced into the right pleural space without difficulty. Fluid was aspirated . COMPARISON: Chest x-ray done earlier the same day. FINDINGS: Initial ultrasound demonstrates fluid in the right pleural space. Approximately 1.7 liters of serou s fluid was aspirated and sent to the laboratory. IMPRESSION: 1. Satisfactory ultrasound-guided right thoracentesis. RPTAT: QQ .Kayden Cervantes MD, Date Time Electronically viewed and signed by .Kayden Cervantes MD, on 11/28/2016 17:22 .R/
--- NOTE | 2016-11-28 17:28 | RADRPT ---
PROCEDURE: XR Chest. CLINICAL INDICATION: Shortness of breath. TECHNIQUE: Single frontal view. COMPARISON: 11/26/2016. FINDINGS: There is a large right pleural effusion and moderate right basilar atelectasis, unchanged. The left lung is clear and there is no left pleural effusion. The heart is enlarged. There is calcification in the aorta consistent with atherosclerosis. There is no pneumothorax. IMPRESSION: 1. Improved aeration of the left lung base. 2. No other significant change from 11/26/2016. RPTAT: QQ .Kayden Cervantes MD, MD Date Time Electronically viewed and signed by .Kayden Cervantes MD, MD on 11/28/2016 17:27 .R/
--- NOTE | 2016-11-28 17:29 | RADRPT ---
PROCEDURE: XR Chest. CLINICAL INDICATION: Shortness of breath. Post right thoracentesis. TECHNIQUE: Single frontal view. COMPARISON: Prior study done earlier the same day. FINDINGS: Previously noted large right pleural effusion is now much smaller. There is mild atelectasis at the lung bases, improved on the right and unchanged on the left. The heart is enlarged. There is calcification in the aorta consistent with atherosclerosis. There is right shoulder calcif ic tendonitis. There is no pneumothorax. IMPRESSION: 1. Improved appearance of the right lung and smaller right pleural effusion. 2. No other change from the prior study done earlier the same day. 3. No pneumothorax following right thoracentesis. RPTAT: QQ .Kayden Cervantes MD, MD Date Time Electronically viewed and signed by .Kayden Cervantes MD, on 11/28/2016 17:29 .R/
[2016-11-28] MEDS: CEFTRIAXONE 1 GM/50 ML (PMX) 50 ML IVPB SCH (17:54)
[2016-11-28] MEDS: FUROSEMIDE 40 MG INJ IV SCH (17:55)
[2016-11-28] MEDS: AZITHROMYCIN 500MG/NS (PMX) 250 ML IVPB SCH (18:34)
[2016-11-28] MEDS: INSULIN GLARGINE [LANtus] 3 ML PEN SC SCH (20:54)
[2016-11-29] VITALS (13 sets, daily range): BP systolic 122–178; BP diastolic 67–86; PULSE 70–84; RESP 17–21
[2016-11-29] MEDS: ACCU-CHEK XX SCH ×2 (01:17)
[2016-11-29] MEDS: METOLAZONE 5 MG TAB PO SCH (04:46)
[2016-11-29] MEDS: FUROSEMIDE 40 MG INJ IV SCH ×2 (04:48→17:07)
[2016-11-29 06:35] LABS: BASOPHILS % 0.1 % (0.0-2.0); HEMATOCRIT 37.2 % (42.0-52.0); HEMOGLOBIN 11.2 g/dl (14.0-18.0); LYMPHOCYTES # 1.6 10^3/ul (0.8-2.9); LYMPHOCYTES % 9.9 % (15.0-51.0); MEAN CORPUSCULAR HEMOGLOBIN 27.6 pg (29.0-33.0); MEAN CORPUSCULAR HGB CONC 30.1 g/dl (32.0-37.0); MEAN CORPUSCULAR VOLUME 91.6 fl (82.0-101.0); MEAN PLATELET VOLUME 10.2 fl (7.4-10.4); MONOCYTE # 1.3 10^3/ul (0.3-0.9); MONOCYTES % 8.2 % (0.0-11.0); NEUTROPHIL # 12.8 10^3/ul (1.6-7.5); NEUTROPHILS % 81.2 % (39.0-77.0); PLATELET COUNT 263 10^3/UL (140-415); RED BLOOD COUNT 4.06 10^6/ul (4.70-6.10); RED CELL DISTRIBUTION WIDTH 14.2 % (11.5-14.5); WHITE BLOOD COUNT 15.7 10^3/ul (4.8-10.8)
[2016-11-29 07:03] LABS: CALCIUM 9.2 mg/dl (8.4-10.2); CREATININE 1.05 mg/dl (0.61-1.24); POTASSIUM 4.7 mmol/L (3.5-5.1)
[2016-11-29] MEDS: metFORMIN 500 MG TAB PO SCH ×2 (07:56→17:07)
[2016-11-29] MEDS: INSULIN ASPART [NOVOLOG] 3 ML PEN SC SCH ×7 (07:59→21:00)
[2016-11-29] MEDS: METOPROLOL (XL) 25 MG TAB PO SCH ×2 (08:10→21:34)
[2016-11-29] MEDS: ASPIRIN 81 MG TAB PO SCH (08:10)
[2016-11-29] MEDS: GABAPENTIN 300 MG CAP PO SCH ×3 (08:10→21:33)
[2016-11-29] MEDS: NIFEdipine (XL) 60 MG TAB PO SCH (08:10)
[2016-11-29] MEDS: LISINOPRIL 20 MG TAB PO SCH (08:11)
[2016-11-29] MEDS: SALMETEROL/FLUTICASONE 250/50 INHA INH SCH ×2 (08:11→21:33)
[2016-11-29] MEDS: CEFTRIAXONE 1 GM/50 ML (PMX) 50 ML IVPB SCH (17:06)
[2016-11-29] MEDS: AZITHROMYCIN 500MG/NS (PMX) 250 ML IVPB SCH (17:16)
--- NOTE | 2016-11-29 18:53 | PN ---
Date/Time of Note Date/Time of Note DATE: 11/29/16 TIME: 18:46 Assessment/Plan VTE Prophylaxis VTE Prophylaxis Intervention: SCD's Lines/Catheters IV C[facility] Type (from [facility] Saline Lock Urinary Cath still in place: No Assessment/Plan Chief Complaint/Hosp Course 1. Acute respiratory distress secondary to COPD exacerbation and right pleural effusion Continue antibiotics and breathing treatments, status post steroids Chest x-ray showed right pleural effusion and is status post thoracentesis, the patient has a history of recurrent right-sided pleural effusions with previous workup having been negative Pulmonology consultation appreciated 2. 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 Hypertension-stable Continue home meds, hydralazine as needed 4. Anasarca-improving Continue Lasix to IV and metolazone Prophylaxis: SCDs Discharge planning: Patient's breathing has improved but continues to have some anasarca, continue diuresis for another day and anticipate DC home in 1-2 days, patient may need to be arranged for home O2 if he does not have it already, discuss need for home O2 with pulmonology Problems: Subjective 24 Hr Interval Summary Respiratory: shortness of breath Lymphatic: lymphadema Exam/Review of Systems Vital Signs Vitals Vital Signs Date Time Temp Pulse Resp B/P Pulse Ox O2 Delivery O2 Flow Rate FiO2 11/29/16 17:48 72 11/29/16 15:29 97.6 17 150/81 98 11/29/16 13:25 2.0 11/29/16 08:00 Nasal Cannula 11/29/16 02:22 27 Intake and Output 11/28/16 11/28/16 11/29/16 15:00 23:00 07:00 Intake Total 1100 ml 500 ml Output Total 1225 ml 800 ml Balance -125 ml -300 ml Exam Constitutional: alert Respiratory: clear to auscultation Cardiovascular: regular rate and rhythm Gastrointestinal: soft, No distended Extremities: edema Results Result Diagram: 11/29/1625 11/29/16 0625 Results 24 hrs Laboratory Tests Test 11/28/16 20:25 11/29/16 01:11 11/29/16 06:25 11/29/16 07:38 Bedside Glucose 235 H 246 H 176 White Blood Count 15.7 H Red Blood Count 4.06 L Hemoglobin 11.2 L Hematocrit 37.2 L Mean Corpuscular Volume 91.6 Mean Corpuscular Hemoglobin 27.6 L Mean Corpuscular Hemoglobin Concent 30.1 L Red Cell Distribution Width 14.2 Platelet Count 263 Mean Platelet Volume 10.2 Neutrophils % 81.2 H Lymphocytes % 9.9 L Monocytes % 8.2 Eosinophils % 0.0 Basophils % 0.1 Nucleated Red Blood Cells % 0.0 Neutrophils # 12.8 H Lymphocytes # 1.6 Monocytes # 1.3 H Eosinophils # 0.0 Basophils # 0.0 Nucleated Red Blood Cells # 0.0 Sodium Level 147 H Potassium Level 4.7 Chloride Level 96 L Carbon Dioxide Level 37 H Anion Gap 19 H Blood Urea Nitrogen 59 H Creatinine 1.05 Glucose Level 240 H Calcium Level 9.2 Magnesium Level 2.0 Test 11/29/16 11:44 11/29/16 17:03 Bedside Glucose 87 146 Medications Medications Current Medications Ondansetron HCl (Zofran Inj) 4 mg Q6H PRN IV NAUSEA AND/OR VOMITING; Start at 12:30 Acetaminophen (Tylenol Tab) 650 mg Q6H PRN PO PAIN LEVEL 1-3 OR FEVER; Start at 12:30 Acetaminophen/ Hydrocodone Bitart ([place] (5/325)) 1 tab Q6H PRN PO MODERATE PAIN LEVEL 4-6; Start 11/26/16 at 12:30 Morphine Sulfate (morphine) 2 mg Q4H PRN IV SEVERE PAIN LEVEL 7-10; Start 11/26 at 12:30 Docusate Sodium (Colace) 100 mg Q12H PRN PO CONSTIPATION Last administered on 01:55; Admin Dose 100 MG; Start 11/26/16 at 12:30 Zolpidem Tartrate (Ambien) 5 mg QHS PRN PO SLEEP; Start 11/26/16 at 12:30 Aspirin (Aspirin) 81 mg DAILY PO Last administered on 11/29/16 08:10; Admin Dose 81 MG; Start 11/27/16 at 09:00 Gabapentin (Neurontin) 300 mg TID PO Last administered on 11/29/16 14:00; Admin Dose 300 MG; Start 11/26/16 at 13:00 Lisinopril (Zestril) 40 mg DAILY PO Last administered on 11/29/16 08:11; Admin Dose 40 MG; Start 11/26/16 at 12:30 Metoprolol Succinate (Toprol Xl) 25 mg BID PO Last administered on 11/29/16 08 :10; Admin Dose 25 MG; Start 11/26/16 at 12:30 Nifedipine (Procardia Xl) 60 mg DAILY PO Last administered on 11/29/16 08:10; Admin Dose 60 MG; Start 11/26/16 at 12:30 Salmeterol Xinafoate/ Fluticasone (Advair 250/50 Diskus) 1 inh BID INH Last administered on 11/29/16 08:11; Admin Dose 1 INH; Start 11/26/16 at 21:00 Hydralazine HCl (Apresoline) 10 mg Q4H PRN IV SBP>170 Last administered on 11/28 04:05; Admin Dose 10 MG; Start 11/26/16 at 12:30 Miscellaneous Information 1 ea NOTE XX ; Start 11/26/16 at 12:30 Glucose (Glutose) 15 gm Q15M PRN PO DECREASED GLUCOSE; Start 11/26/16 at 12:30 Glucose (Glutose) 22.5 gm Q15M PRN PO DECREASED GLUCOSE; Start 11/26/16 at 12: 30 Dextrose (D50w Syringe) 25 ml Q15M PRN IV DECREASED GLUCOSE; Start 11/26/16 at 12:30 Dextrose (D50w Syringe) 50 ml Q15M PRN IV DECREASED GLUCOSE; Start 11/26/16 at 12:30 Glucagon (Glucagen) 1 mg Q15M PRN IM DECREASED GLUCOSE; Start 11/26/16 at 12:30 Glucose 15 gm 15 gm Q15M PRN BUCCAL DECREASED GLUCOSE; Start 11/26/16 at 12:30 Ceftriaxone Sodium 50 ml @ 100 mls/hr Q24H IVPB Last administered on 17:06; Admin Dose 100 MLS/HR; Start 11/26/16 at 17:00 Azithromycin (Zithromax 500mg/ NS (Pmx)) 250 ml @ 250 mls/hr Q24H IVPB Last administered on 11/29/16 17:16; Admin Dose 250 MLS/HR; Start 11/26/16 at 18:00 Diagnostic Test (Pha) (Accu-Chek) 1 ea XX Last administered on 11/29/16 01: 17; Admin Dose 1 EA; Start 11/27/16 at 02:00 Diagnostic Test (Pha) (Accu-Chek) XX Last administered on 11/29/16 01: 17; Admin Dose 1 EA; Start 11/27/16 at 02:00 Insulin Glargine (Lantus) 30 unit QHS SC Last administered on 11/28/16 20:54; Admin Dose 30 UNIT; Start 11/28/16 at 21:00 Metolazone (Zaroxolyn) 5 mg DAILY@06 PO Last administered on 11/29/16 04:46; Admin Dose 5 MG; Start 11/28/16 at 14:30 JOSE MAZARIEGOS Nov 29, 2016 18:52
[2016-11-29] MEDS: ACETAMINOPHEN 325 MG TAB PO PRN (19:32)
[2016-11-29] MEDS: INSULIN GLARGINE [LANtus] 3 ML PEN SC SCH (21:38)
[2016-11-30] VITALS (11 sets, daily range): BP systolic 110–150; BP diastolic 62–71; PULSE 70–90; RESP 17–21
[2016-11-30] MEDS: ACCU-CHEK XX SCH ×2 (02:16)
[2016-11-30] MEDS: METOLAZONE 5 MG TAB PO SCH (05:11)
[2016-11-30] MEDS: FUROSEMIDE 40 MG INJ IV SCH ×2 (05:11→17:06)
[2016-11-30] MEDS: INSULIN ASPART [NOVOLOG] 3 ML PEN SC SCH ×6 (07:55→17:55)
[2016-11-30 08:16] LABS: BASOPHILS % 0.1 % (0.0-2.0); EOSINOPHILS # 0.1 10^3/ul (0.0-0.5); EOSINOPHILS % 0.8 % (0.0-7.0); HEMATOCRIT 38.7 % (42.0-52.0); HEMOGLOBIN 11.6 g/dl (14.0-18.0); LYMPHOCYTES # 3.2 10^3/ul (0.8-2.9); LYMPHOCYTES % 26.4 % (15.0-51.0); MEAN CORPUSCULAR HEMOGLOBIN 27.2 pg (29.0-33.0); MEAN CORPUSCULAR VOLUME 90.6 fl (82.0-101.0); MEAN PLATELET VOLUME 10.1 fl (7.4-10.4); MONOCYTE # 1.3 10^3/ul (0.3-0.9); MONOCYTES % 10.8 % (0.0-11.0); NEUTROPHIL # 7.3 10^3/ul (1.6-7.5); NEUTROPHILS % 61.4 % (39.0-77.0); PLATELET COUNT 263 10^3/UL (140-415); RED BLOOD COUNT 4.27 10^6/ul (4.70-6.10); RED CELL DISTRIBUTION WIDTH 13.9 % (11.5-14.5); WHITE BLOOD COUNT 11.9 10^3/ul (4.8-10.8)
[2016-11-30 08:34] LABS: CALCIUM 9.4 mg/dl (8.4-10.2); CREATININE 0.93 mg/dl (0.61-1.24)
[2016-11-30] MEDS: GABAPENTIN 300 MG CAP PO SCH ×2 (08:35→12:24)
[2016-11-30] MEDS: SALMETEROL/FLUTICASONE 250/50 INHA INH SCH (08:35)
[2016-11-30] MEDS: LISINOPRIL 20 MG TAB PO SCH (08:35)
[2016-11-30] MEDS: METOPROLOL (XL) 25 MG TAB PO SCH (08:36)
[2016-11-30] MEDS: metFORMIN 500 MG TAB PO SCH ×2 (08:36→17:07)
[2016-11-30] MEDS: NIFEdipine (XL) 60 MG TAB PO SCH (08:36)
[2016-11-30] MEDS: ASPIRIN 81 MG TAB PO SCH (08:36)
--- NOTE | 2016-11-30 15:32 | CONS ---
Date/Time of Note Date/Time of Note DATE: 11/30/16 TIME: 15:31 Consult Date/Type/Reason Admit Date/Time Nov 26, 2016 at 08:55 Initial Consult Date 11/28/16 Type of Consultation: Pulmonary Objective Vital Signs Date Time Temp Pulse Resp B/P Pulse Ox O2 Delivery O2 Flow Rate FiO2 11/30/16 12:12 70 11/30/16 08:00 99.2 20 110/62 100 Nasal Cannula 4.0 11/29/16 02:22 27 Intake and Output 11/29/16 11/29/16 11/30/16 15:00 23:00 07:00 Intake Total 1750 ml 320 ml Output Total 1625 ml 750 ml Balance 125 ml -430 ml Results/Medications Result Diagram: 11/30/16 0718 11/30/16 0718 Results 24 hrs Laboratory Tests Test 11/29/16 17:03 11/29/16 21:30 11/30/16 01:31 11/30/16 07:18 Bedside Glucose 146 89 122 White Blood Count 11.9 #H Red Blood Count 4.27 L Hemoglobin 11.6 L Hematocrit 38.7 L Mean Corpuscular Volume 90.6 Mean Corpuscular Hemoglobin 27.2 L Mean Corpuscular Hemoglobin Concent 30.0 L Red Cell Distribution Width 13.9 Platelet Count 263 Mean Platelet Volume 10.1 Neutrophils % 61.4 Lymphocytes % 26.4 Monocytes % 10.8 Eosinophils % 0.8 Basophils % 0.1 Nucleated Red Blood Cells % 0.0 Neutrophils # 7.3 Lymphocytes # 3.2 H Monocytes # 1.3 H Eosinophils # 0.1 Basophils # 0.0 Nucleated Red Blood Cells # 0.0 Sodium Level 143 Potassium Level 4.0 Chloride Level 88 L Carbon Dioxide Level 48 #*H Anion Gap 11 # Blood Urea Nitrogen 54 H Creatinine 0.93 Glucose Level 93 # Calcium Level 9.4 Test 11/30/16 07:51 11/30/16 12:17 Bedside Glucose 83 96 Medications Current Medications Ondansetron HCl (Zofran Inj) 4 mg Q6H PRN IV NAUSEA AND/OR VOMITING; Start at 12:30 Acetaminophen (Tylenol Tab) 650 mg Q6H PRN PO PAIN LEVEL 1-3 OR FEVER Last administered on 11/29/16t 19:32; Admin Dose 650 MG; Start 11/26/16 at 12:30 Acetaminophen/ Hydrocodone Bitart ([place] (5/325)) 1 tab Q6H PRN PO MODERATE PAIN LEVEL 4-6; Start 11/26/16 at 12:30 Morphine Sulfate (morphine) 2 mg Q4H PRN IV SEVERE PAIN LEVEL 7-10; Start 11/26 at 12:30 Docusate Sodium (Colace) 100 mg Q12H PRN PO CONSTIPATION Last administered on 01:55; Admin Dose 100 MG; Start 11/26/16 at 12:30 Zolpidem Tartrate (Ambien) 5 mg QHS PRN PO SLEEP; Start 11/26/16 at 12:30 Aspirin (Aspirin) 81 mg DAILY PO Last administered on 11/30/16 08:36; Admin Dose 81 MG; Start 11/27/16 at 09:00 Gabapentin (Neurontin) 300 mg TID PO Last administered on 11/30/16 12:24; Admin Dose 300 MG; Start 11/26/16 at 13:00 Lisinopril (Zestril) 40 mg DAILY PO Last administered on 11/30/16 08:35; Admin Dose 40 MG; Start 11/26/16 at 12:30 Metoprolol Succinate (Toprol Xl) 25 mg BID PO Last administered on 11/30/16 08 :36; Admin Dose 25 MG; Start 11/26/16 at 12:30 Nifedipine (Procardia Xl) 60 mg DAILY PO Last administered on 11/30/16 08:36; Admin Dose 60 MG; Start 11/26/16 at 12:30 Salmeterol Xinafoate/ Fluticasone (Advair 250/50 Diskus) 1 inh BID INH Last administered on 11/30/16 08:35; Admin Dose 1 INH; Start 11/26/16 at 21:00 Hydralazine HCl (Apresoline) 10 mg Q4H PRN IV SBP>170 Last administered on 11/28 04:05; Admin Dose 10 MG; Start 11/26/16 at 12:30 Miscellaneous Information 1 ea NOTE XX ; Start 11/26/16 at 12:30 Glucose (Glutose) 15 gm Q15M PRN PO DECREASED GLUCOSE; Start 11/26/16 at 12:30 Glucose (Glutose) 22.5 gm Q15M PRN PO DECREASED GLUCOSE; Start 11/26/16 at 12: 30 Dextrose (D50w Syringe) 25 ml Q15M PRN IV DECREASED GLUCOSE; Start 11/26/16 at 12:30 Dextrose (D50w Syringe) 50 ml Q15M PRN IV DECREASED GLUCOSE; Start 11/26/16 at 12:30 Glucagon (Glucagen) 1 mg Q15M PRN IM DECREASED GLUCOSE; Start 11/26/16 at 12:30 Glucose 15 gm 15 gm Q15M PRN BUCCAL DECREASED GLUCOSE; Start 11/26/16 at 12:30 Ceftriaxone Sodium 50 ml @ 100 mls/hr Q24H IVPB Last administered on 17:06; Admin Dose 100 MLS/HR; Start 11/26/16 at 17:00 Azithromycin (Zithromax 500mg/ NS (Pmx)) 250 ml @ 250 mls/hr Q24H IVPB Last administered on 11/29/16 17:16; Admin Dose 250 MLS/HR; Start 11/26/16 at 18:00 Diagnostic Test (Pha) (Accu-Chek) 1 ea 02 XX Last administered on 11/30/16 02: 16; Admin Dose 1 EA; Start 11/27/16 at 02:00 Diagnostic Test (Pha) (Accu-Chek) 1 ea 02 XX Last administered on 11/30/16 02: 16; Admin Dose 1 EA; Start 11/27/16 at 02:00 Insulin Glargine (Lantus) 30 unit QHS SC Last administered on 11/29/16 21:38; Admin Dose 30 UNIT; Start 11/28/16 at 21:00 Metolazone (Zaroxolyn) 5 mg DAILY@06 PO Last administered on 11/30/16 05:11; Admin Dose 5 MG; Start 11/28/16 at 14:30 Assessment/Plan Chief Complaint/Hosp Course Patient sleeping this morning appears comfortable at rest. Still requiring 3-4 L nasal cannula. GENERAL: Obese Amenian gentleman comfortable at rest sleeping this morning. VITAL SIGNS: per chart NECK: Supple. No JVD or lymphadenopathy. CARDIAC EXAM: S1, S2. No added sounds or murmurs. CHEST: Diminished air entry both lung bases few rales. ABDOMEN: Soft, nontender. No guarding or rebound. EXTREMITIES: No cyanosis, clubbing or edema. NEUROLOGIC: Generalized weakness. No focal deficits. Labs White count 11.9 hemoglobin 11.6 platelets 263 Bicarb 46 BUN 54 creatinine 0.93 Chest x-ray shows ongoing congestive cardiac failure possible right pleural effusion Assessment 1. Hypoxemic respiratory failure combination of heart failure and COPD exacerbation 2. Congestive cardiac failure with pleural effusions pleural fluid was not sent for studies. Will need echocardiogram and cardiology consult 3. Morbid obesity 4. Diabetes mellitus Plan 1. Continue current antibiotics. 2. Continue current glycemic management 3. Diuretics 4. Echocardiogram cardiology consult 5. DVT GI prophylaxis Disposition Continue ICU care Problems: KEYSHA FONSECA MD, [facility] Nov 30, 2016 15:32
--- NOTE | 2016-11-30 16:35 | PN ---
Date/Time of Note Date/Time of Note DATE: 11/30/16 TIME: 16:32 Assessment/Plan VTE Prophylaxis VTE Prophylaxis Intervention: heparin Lines/Catheters IV Catheter Type (from [facility]): Peripheral IV Urinary Cath still in place: No Assessment/Plan Chief Complaint/Hosp Course 1. Acute respiratory failure. Hypoxic. Secondary to COPD exacerbation and possibly a component of diastolic heart failure. Continue inhaled bronchodilators. The patient being followed by pulmonology. Will involve cardiology on the case. Will repeat a 2D echocardiogram. 2. Type 2 diabetes mellitus. Hemoglobin A1c 8.2. The patient's blood sugars were uncontrolled during the first few days. Currently the blood sugars are under control. 3. Recurrent right-sided pleural effusion. Status post thoracentesis on 2016 with the drainage is 1.7 L of serous fluid. Unfortunately, fluid studies were not sent on this patient. Being followed by pulmonary. 4. Anemia. Normocytic and hypochromic. Etiology unclear. Will monitor H&H closely. Will obtain an iron panel. 5. Essential hypertension. Continue antihypertensives. 6. Fluids, electrolytes, and nutrition. Heart rate controlled diet. 7. DVT prophylaxis with subcutaneous heparin. 8. Gastrointestinal prophylaxis. Histamine 2 receptor blockers. 9. Plan. Continue diuresis. Continue inhaled bronchodilators. Obtain cardiology consult. Repeat 2D echocardiogram. Case discussed with Dr. Gilmore. Problems: Subjective 24 Hr Interval Summary Free Text/Dictation Patient somnolent. Exam/Review of Systems Vital Signs Vitals Vital Signs Date Time Temp Pulse Resp B/P Pulse Ox O2 Delivery O2 Flow Rate FiO2 11/30/16 12:12 70 11/30/16 08:00 99.2 20 110/62 100 Nasal Cannula 4.0 11/29/16 02:22 27 Intake and Output 11/29/16 11/29/16 11/30/16 15:00 23:00 07:00 Intake Total 1750 ml 320 ml Output Total 1625 ml 750 ml Balance 125 ml -430 ml Exam General: Obese 61 year-old male lying in bed in no apparent distress. HEENT: Normocephalic, atraumatic. Eyes: Anicteric sclerae, conjunctivae clear. ENT: Nasal septum midline, oral mucosa moist. Neck supple, no JVD noticed. Respiratory: Bilaterally diminished breath sounds. No use of accessory muscles of respiration. Scattered rhonchi. Cardiovascular: S1, S2 heard. No murmurs or gallops. Abdomen: Soft, nontender, and nondistended. Bowel sounds positive in all 4 quadrants. Genitourinary: Deferred. Extremities: No cyanosis, no clubbing, trace B/L pedal edema. Peripheral pulses palpable. Neurologic: Cranial nerves II through XII grossly intact. The patient is awake, alert, and oriented. Skin: Normal skin turgor. No skin rashes. Results Result Diagram: 11/30/1618 11/30/16 0718 Results 24 hrs Laboratory Tests Test 11/29/16 17:03 11/29/16 21:30 11/30/16 01:31 11/30/16 07:18 Bedside Glucose 146 89 122 White Blood Count 11.9 #H Red Blood Count 4.27 L Hemoglobin 11.6 L Hematocrit 38.7 L Mean Corpuscular Volume 90.6 Mean Corpuscular Hemoglobin 27.2 L Mean Corpuscular Hemoglobin Concent 30.0 L Red Cell Distribution Width 13.9 Platelet Count 263 Mean Platelet Volume 10.1 Neutrophils % 61.4 Lymphocytes % 26.4 Monocytes % 10.8 Eosinophils % 0.8 Basophils % 0.1 Nucleated Red Blood Cells % 0.0 Neutrophils # 7.3 Lymphocytes # 3.2 H Monocytes # 1.3 H Eosinophils # 0.1 Basophils # 0.0 Nucleated Red Blood Cells # 0.0 Sodium Level 143 Potassium Level 4.0 Chloride Level 88 L Carbon Dioxide Level 48 #*H Anion Gap 11 # Blood Urea Nitrogen 54 H Creatinine 0.93 Glucose Level 93 # Calcium Level 9.4 Test 11/30/16 07:51 11/30/16 12:17 Bedside Glucose 83 96 Medications Medications Current Medications Ondansetron HCl (Zofran Inj) 4 mg Q6H PRN IV NAUSEA AND/OR VOMITING; Start at 12:30 Acetaminophen (Tylenol Tab) 650 mg Q6H PRN PO PAIN LEVEL 1-3 OR FEVER Last administered on 11/29/16t 19:32; Admin Dose 650 MG; Start 11/26/16 at 12:30 Acetaminophen/ Hydrocodone Bitart ([place] (5/325)) 1 tab Q6H PRN PO MODERATE PAIN LEVEL 4-6; Start 11/26/16 at 12:30 Morphine Sulfate (morphine) 2 mg Q4H PRN IV SEVERE PAIN LEVEL 7-10; Start 11/26 at 12:30 Docusate Sodium (Colace) 100 mg Q12H PRN PO CONSTIPATION Last administered on 01:55; Admin Dose 100 MG; Start 11/26/16 at 12:30 Zolpidem Tartrate (Ambien) 5 mg QHS PRN PO SLEEP; Start 11/26/16 at 12:30 Aspirin (Aspirin) 81 mg DAILY PO Last administered on 11/30/16 08:36; Admin Dose 81 MG; Start 11/27/16 at 09:00 Gabapentin (Neurontin) 300 mg TID PO Last administered on 11/30/16 12:24; Admin Dose 300 MG; Start 11/26/16 at 13:00 Lisinopril (Zestril) 40 mg DAILY PO Last administered on 11/30/16 08:35; Admin Dose 40 MG; Start 11/26/16 at 12:30 Metoprolol Succinate (Toprol Xl) 25 mg BID PO Last administered on 11/30/16 08 :36; Admin Dose 25 MG; Start 11/26/16 at 12:30 Nifedipine (Procardia Xl) 60 mg DAILY PO Last administered on 11/30/16 08:36; Admin Dose 60 MG; Start 11/26/16 at 12:30 Salmeterol Xinafoate/ Fluticasone (Advair 250/50 Diskus) 1 inh BID INH Last administered on 11/30/16 08:35; Admin Dose 1 INH; Start 11/26/16 at 21:00 Hydralazine HCl (Apresoline) 10 mg Q4H PRN IV SBP>170 Last administered on 11/28 04:05; Admin Dose 10 MG; Start 11/26/16 at 12:30 Miscellaneous Information 1 ea NOTE XX ; Start 11/26/16 at 12:30 Glucose (Glutose) 15 gm Q15M PRN PO DECREASED GLUCOSE; Start 11/26/16 at 12:30 Glucose (Glutose) 22.5 gm Q15M PRN PO DECREASED GLUCOSE; Start 11/26/16 at 12: 30 Dextrose (D50w Syringe) 25 ml Q15M PRN IV DECREASED GLUCOSE; Start 11/26/16 at 12:30 Dextrose (D50w Syringe) 50 ml Q15M PRN IV DECREASED GLUCOSE; Start 11/26/16 at 12:30 Glucagon (Glucagen) 1 mg Q15M PRN IM DECREASED GLUCOSE; Start 11/26/16 at 12:30 Glucose 15 gm 15 gm Q15M PRN BUCCAL DECREASED GLUCOSE; Start 11/26/16 at 12:30 Ceftriaxone Sodium 50 ml @ 100 mls/hr Q24H IVPB Last administered on 17:06; Admin Dose 100 MLS/HR; Start 11/26/16 at 17:00 Azithromycin (Zithromax 500mg/ NS (Pmx)) 250 ml @ 250 mls/hr Q24H IVPB Last administered on 11/29/16 17:16; Admin Dose 250 MLS/HR; Start 11/26/16 at 18:00 Diagnostic Test (Pha) (Accu-Chek) 1 ea 02 XX Last administered on 11/30/16 02: 16; Admin Dose 1 EA; Start 11/27/16 at 02:00 Diagnostic Test (Pha) (Accu-Chek) 1 ea 02 XX Last administered on 11/30/16 02: 16; Admin Dose 1 EA; Start 11/27/16 at 02:00 Insulin Glargine (Lantus) 30 unit QHS SC Last administered on 11/29/16 21:38; Admin Dose 30 UNIT; Start 11/28/16 at 21:00 Metolazone (Zaroxolyn) 5 mg DAILY@06 PO Last administered on 11/30/16 05:11; Admin Dose 5 MG; Start 11/28/16 at 14:30 NILES AYALA NP Nov 30, 2016 16:35 NILES AYALA NP Nov 30, 2016 16:35
[2016-11-30] MEDS: CEFTRIAXONE 1 GM/50 ML (PMX) 50 ML IVPB SCH (16:54)
[2016-11-30] MEDS: AZITHROMYCIN 500MG/NS (PMX) 250 ML IVPB SCH (17:07)
--- NOTE | 2016-11-30 17:15 | RADRPT ---
PROCEDURE: XR Chest. CLINICAL INDICATION: Rule out infiltrates TECHNIQUE: PA and Lateral views of the chest were obtained. COMPARISON: Chest x-ray 11/28/2016 FINDINGS: There are persistent low lung volumes. The cardiac silhouette remains moderately enlarged. There is atherosclerotic calcification of the aortic arch. Patchy ill-defined opacities in the mid and lower lungs bilaterally have increased bilaterally. Small to moderate right pleural effusion, slightly increased compared to prior study. No pneumothorax is identified. There are degenerative changes of the visualized spine. IMPRESSION: 1. Patchy ill-defined opacities in the mid and lower lungs bilaterally have increased bilaterally c ompared to prior study. 2. Small moderate right pleural effusion with possible loculated component, increased compared to p rior study. 3. Moderate cardiomegaly. 4. Thoracic aortic atherosclerotic disease. RPTAT: PP Physician Kalyn Date Time Electronically viewed and signed by Physician Kalyn on 11/30/2016 17:15 /
[2016-12-01] VITALS (13 sets, daily range): BP systolic 112–167; BP diastolic 57–74; PULSE 79–86; RESP 17–20
[2016-12-01] MEDS: SALMETEROL/FLUTICASONE 250/50 INHA INH SCH ×3 (01:56→20:10)
[2016-12-01] MEDS: GABAPENTIN 300 MG CAP PO SCH ×4 (01:57→20:10)
[2016-12-01] MEDS: FAMOTIDINE 20 MG TAB PO SCH ×3 (01:57→20:10)
[2016-12-01] MEDS: METOPROLOL (XL) 25 MG TAB PO SCH ×3 (01:58→20:12)
[2016-12-01] MEDS: HEPARIN 5,000 UNIT/0.5 ML VIAL SC SCH ×3 (02:00→20:25)
[2016-12-01] MEDS: ACCU-CHEK XX SCH ×2 (02:00)
[2016-12-01] MEDS: INSULIN GLARGINE [LANtus] 3 ML PEN SC SCH ×2 (02:03→20:25)
[2016-12-01] MEDS: FUROSEMIDE 40 MG INJ IV SCH ×2 (06:13→17:00)
[2016-12-01] MEDS: METOLAZONE 5 MG TAB PO SCH (06:13)
[2016-12-01] MEDS: metFORMIN 500 MG TAB PO SCH ×2 (07:49→17:24)
[2016-12-01] MEDS: NIFEdipine (XL) 60 MG TAB PO SCH (07:49)
[2016-12-01] MEDS: ASPIRIN 81 MG TAB PO SCH (07:49)
[2016-12-01] MEDS: LISINOPRIL 20 MG TAB PO SCH (07:50)
[2016-12-01 07:54] LABS: BASOPHILS % 0.2 % (0.0-2.0); EOSINOPHILS # 0.3 10^3/ul (0.0-0.5); EOSINOPHILS % 2.4 % (0.0-7.0); HEMATOCRIT 37.4 % (42.0-52.0); HEMOGLOBIN 11.4 g/dl (14.0-18.0); LYMPHOCYTES # 2.8 10^3/ul (0.8-2.9); LYMPHOCYTES % 24.2 % (15.0-51.0); MEAN CORPUSCULAR HEMOGLOBIN 27.3 pg (29.0-33.0); MEAN CORPUSCULAR HGB CONC 30.5 g/dl (32.0-37.0); MEAN CORPUSCULAR VOLUME 89.5 fl (82.0-101.0); MONOCYTE # 1.2 10^3/ul (0.3-0.9); MONOCYTES % 10.6 % (0.0-11.0); NEUTROPHIL # 7.1 10^3/ul (1.6-7.5); NEUTROPHILS % 61.9 % (39.0-77.0); PLATELET COUNT 262 10^3/UL (140-415); RED BLOOD COUNT 4.18 10^6/ul (4.70-6.10); RED CELL DISTRIBUTION WIDTH 13.8 % (11.5-14.5); WHITE BLOOD COUNT 11.5 10^3/ul (4.8-10.8)
[2016-12-01 08:29] LABS: IRON 27 ug/dl (35-150)
[2016-12-01 08:38] LABS: TOTAL IRON BINDING CAPACITY 320 ug/dl (241-421)
[2016-12-01 08:43] LABS: CALCIUM 9.3 mg/dl (8.4-10.2); CREATININE 1.17 mg/dl (0.61-1.24); MAGNESIUM 1.6 mg/dl (1.7-2.5); PHOSPHORUS 4.8 mg/dl (2.5-4.9); POTASSIUM 3.9 mmol/L (3.5-5.1)
[2016-12-01] MEDS: INSULIN ASPART [NOVOLOG] 3 ML PEN SC SCH ×8 (08:58→20:26)
--- NOTE | 2016-12-01 10:54 | PN ---
Date/Time of Note Date/Time of Note DATE: 12/01/16 TIME: 10:52 Assessment/Plan VTE Prophylaxis VTE Prophylaxis Intervention: heparin Lines/Catheters IV Catheter Type (from [facility]): Peripheral IV Urinary Cath still in place: No Assessment/Plan Chief Complaint/Hosp Course 1. Acute respiratory failure. Hypoxic. Secondary to COPD exacerbation and possibly a component of diastolic heart failure. Continue inhaled bronchodilators. The patient being followed by pulmonology. Will involve cardiology on the case. Will repeat a 2D echocardiogram. 2. Type 2 diabetes mellitus. Hemoglobin A1c 8.2. The patient's blood sugars were uncontrolled during the first few days. Currently the blood sugars are under control. 3. Recurrent right-sided pleural effusion. Status post thoracentesis on 2016 with the drainage is 1.7 L of serous fluid. Unfortunately, fluid studies were not sent on this patient. Being followed by pulmonary. 4. Anemia. Normocytic and hypochromic. Etiology unclear. Will monitor H&H closely. Iron panel showing low iron and low iron saturation. Start the patient on iron supplements. 5. Essential hypertension. Continue antihypertensives. 6. Fluids, electrolytes, and nutrition. Heart rate controlled diet. 7. DVT prophylaxis with subcutaneous heparin. 8. Gastrointestinal prophylaxis. Histamine 2 receptor blockers. 9. Plan. Continue diuresis. Continue inhaled bronchodilators. Await further recommendations from consultants. Case discussed with Dr. Gilmore. Problems: Subjective 24 Hr Interval Summary Free Text/Dictation Denies any chest pain. Complains of dyspnea. Exam/Review of Systems Vital Signs Vitals Vital Signs Date Time Temp Pulse Resp B/P Pulse Ox O2 Delivery O2 Flow Rate FiO2 12/01/16 08:30 81 12/01/16 07:08 98.3 18 156/74 99 12/01/16 05:27 3.0 11/30/16 21:00 Nasal Cannula 11/29/16 02:22 27 Intake and Output 11/30/16 11/30/16 12/01/16 15:00 23:00 07:00 Intake Total 200 ml 800 ml 700 ml Output Total 600 ml 2000 ml 1800 ml Balance -400 ml -1200 ml -1100 ml Exam General: Obese 61 year-old male lying in bed in no apparent distress. HEENT: Normocephalic, atraumatic. Eyes: Anicteric sclerae, conjunctivae clear. ENT: Nasal septum midline, oral mucosa moist. Neck supple, no JVD noticed. Respiratory: Bilaterally diminished breath sounds. No use of accessory muscles of respiration. Scattered rhonchi. Cardiovascular: S1, S2 heard. No murmurs or gallops. Abdomen: Soft, nontender, and nondistended. Bowel sounds positive in all 4 quadrants. Genitourinary: Deferred. Extremities: No cyanosis, no clubbing, trace B/L pedal edema. Peripheral pulses palpable. Neurologic: Cranial nerves II through XII grossly intact. The patient is awake, alert, and oriented. Skin: Normal skin turgor. No skin rashes. Results Result Diagram: 12/01/16 0654 12/01/16 0654 Results 24 hrs Laboratory Tests Test 11/30/16 12:17 11/30/16 16:55 12/01/16 00:07 12/01/16 06:54 Bedside Glucose 96 127 154 White Blood Count 11.5 H Red Blood Count 4.18 L Hemoglobin 11.4 L Hematocrit 37.4 L Mean Corpuscular Volume 89.5 Mean Corpuscular Hemoglobin 27.3 L Mean Corpuscular Hemoglobin Concent 30.5 L Red Cell Distribution Width 13.8 Platelet Count 262 Mean Platelet Volume 10.0 Neutrophils % 61.9 Lymphocytes % 24.2 Monocytes % 10.6 Eosinophils % 2.4 Basophils % 0.2 Nucleated Red Blood Cells % 0.0 Neutrophils # 7.1 Lymphocytes # 2.8 Monocytes # 1.2 H Eosinophils # 0.3 Basophils # 0.0 Nucleated Red Blood Cells # 0.0 Sodium Level 147 H Potassium Level 3.9 Chloride Level 87 L Carbon Dioxide Level Anion Gap Pending Blood Urea Nitrogen 55 H Creatinine 1.17 Glucose Level 154 Calcium Level 9.3 Phosphorus Level 4.8 Magnesium Level 1.6 L Iron Level 27 L Total Iron Binding Capacity 320 Percent Iron Saturation 8 L Ferritin 74.7 Thyroid Stimulating Hormone (TSH) 1.090 Free Thyroxine 1.27 Test 12/01/16 07:46 Bedside Glucose 148 Medications Medications Current Medications Ondansetron HCl (Zofran Inj) 4 mg Q6H PRN IV NAUSEA AND/OR VOMITING; Start at 12:30 Acetaminophen (Tylenol Tab) 650 mg Q6H PRN PO PAIN LEVEL 1-3 OR FEVER Last administered on 11/29/16t 19:32; Admin Dose 650 MG; Start 11/26/16 at 12:30 Acetaminophen/ Hydrocodone Bitart ([place] (5/325)) 1 tab Q6H PRN PO MODERATE PAIN LEVEL 4-6; Start 11/26/16 at 12:30 Morphine Sulfate (morphine) 2 mg Q4H PRN IV SEVERE PAIN LEVEL 7-10; Start 11/26 at 12:30 Docusate Sodium (Colace) 100 mg Q12H PRN PO CONSTIPATION Last administered on 01:55; Admin Dose 100 MG; Start 11/26/16 at 12:30 Zolpidem Tartrate (Ambien) 5 mg QHS PRN PO SLEEP; Start 11/26/16 at 12:30 Aspirin (Aspirin) 81 mg DAILY PO Last administered on 12/01/16 07:49; Admin Dose 81 MG; Start 11/27/16 at 09:00 Gabapentin (Neurontin) 300 mg TID PO Last administered on 12/01/16 07:49; Admin Dose 300 MG; Start 11/26/16 at 13:00 Lisinopril (Zestril) 40 mg DAILY PO Last administered on 12/01/16 07:50; Admin Dose 40 MG; Start 11/26/16 at 12:30 Metoprolol Succinate (Toprol Xl) 25 mg BID PO Last administered on 12/01/16 07 :50; Admin Dose 25 MG; Start 11/26/16 at 12:30 Nifedipine (Procardia Xl) 60 mg DAILY PO Last administered on 12/01/16 07:49; Admin Dose 60 MG; Start 11/26/16 at 12:30 Salmeterol Xinafoate/ Fluticasone (Advair 250/50 Diskus) 1 inh BID INH Last administered on 12/01/16 10:04; Admin Dose 1 INH; Start 11/26/16 at 21:00 Hydralazine HCl (Apresoline) 10 mg Q4H PRN IV SBP>170 Last administered on 11/28 04:05; Admin Dose 10 MG; Start 11/26/16 at 12:30 Miscellaneous Information 1 ea NOTE XX ; Start 11/26/16 at 12:30 Glucose (Glutose) 15 gm Q15M PRN PO DECREASED GLUCOSE; Start 11/26/16 at 12:30 Glucose (Glutose) 22.5 gm Q15M PRN PO DECREASED GLUCOSE; Start 11/26/16 at 12: 30 Dextrose (D50w Syringe) 25 ml Q15M PRN IV DECREASED GLUCOSE; Start 11/26/16 at 12:30 Dextrose (D50w Syringe) 50 ml Q15M PRN IV DECREASED GLUCOSE; Start 11/26/16 at 12:30 Glucagon (Glucagen) 1 mg Q15M PRN IM DECREASED GLUCOSE; Start 11/26/16 at 12:30 Glucose 15 gm 15 gm Q15M PRN BUCCAL DECREASED GLUCOSE; Start 11/26/16 at 12:30 Ceftriaxone Sodium 50 ml @ 100 mls/hr Q24H IVPB Last administered on 16:54; Admin Dose 100 MLS/HR; Start 11/26/16 at 17:00 Azithromycin (Zithromax 500mg/ NS (Pmx)) 250 ml @ 250 mls/hr Q24H IVPB Last administered on 11/30/16 17:07; Admin Dose 250 MLS/HR; Start 11/26/16 at 18:00 Diagnostic Test (Pha) (Accu-Chek) 1 ea 02 XX Last administered on 11/30/16 02: 16; Admin Dose 1 EA; Start 11/27/16 at 02:00 Diagnostic Test (Pha) (Accu-Chek) 1 ea 02 XX Last administered on 11/30/16 02: 16; Admin Dose 1 EA; Start 11/27/16 at 02:00 Insulin Glargine (Lantus) 30 unit QHS SC Last administered on 12/01/16 02:03; Admin Dose 30 UNIT; Start 11/28/16 at 21:00 Metolazone (Zaroxolyn) 5 mg DAILY@06 PO Last administered on 12/01/16 06:13; Admin Dose 5 MG; Start 11/28/16 at 14:30 Heparin Sodium (Porcine) (Heparin (5000 Units/0.5 ml)) 5,000 unit BID SC Last administered on 12/01/16 07:54; Admin Dose 5,000 UNIT; Start 11/30/16 at 21:00 Famotidine (Pepcid) 20 mg BID PO Last administered on 12/01/16 07:48; Admin Dose 20 MG; Start 11/30/16 at 21:00 NILES AYALA NP Dec 01, 2016 10:54
--- NOTE | 2016-12-01 11:30 | CONS ---
Date/Time of Note Date/Time of Note DATE: 12/01/16 TIME: 11:26 Consult Date/Type/Reason Admit Date/Time Nov 26, 2016 at 08:55 Initial Consult Date 11/28/16 Type of Consultation: Pulmonary Subjective Patient comfortable no new events. Says his breathing is slowly improving. Objective Vital Signs Date Time Temp Pulse Resp B/P Pulse Ox O2 Delivery O2 Flow Rate FiO2 12/01/16 11:16 98.3 80 18 136/65 94 12/01/16 05:27 3.0 11/30/16 21:00 Nasal Cannula 11/29/16 02:22 27 Intake and Output 11/30/16 11/30/16 12/01/16 14:59 22:59 06:59 Intake Total 200 ml 800 ml 700 ml Output Total 600 ml 2000 ml 1800 ml Balance -400 ml -1200 ml -1100 ml Exam GENERAL: Elderly [place] gentleman comfortable at rest no acute distress VITAL SIGNS: per chart NECK: Supple. No JVD or lymphadenopathy. CARDIAC EXAM: S1, S2. No added sounds or murmurs. CHEST: Diminished air entry bilaterally few expiratory wheezes ABDOMEN: Soft, nontender. No guarding or rebound. EXTREMITIES: No cyanosis, clubbing or edema +2 NEUROLOGIC: Significant neuromuscular weakness Results/Medications Result Diagram: 12/01/16 0654 12/01/16 0654 Results 24 hrs Laboratory Tests Test 11/30/16 12:17 11/30/16 16:55 12/01/16 00:07 12/01/16 06:54 Bedside Glucose 96 127 154 White Blood Count 11.5 H Red Blood Count 4.18 L Hemoglobin 11.4 L Hematocrit 37.4 L Mean Corpuscular Volume 89.5 Mean Corpuscular Hemoglobin 27.3 L Mean Corpuscular Hemoglobin Concent 30.5 L Red Cell Distribution Width 13.8 Platelet Count 262 Mean Platelet Volume 10.0 Neutrophils % 61.9 Lymphocytes % 24.2 Monocytes % 10.6 Eosinophils % 2.4 Basophils % 0.2 Nucleated Red Blood Cells % 0.0 Neutrophils # 7.1 Lymphocytes # 2.8 Monocytes # 1.2 H Eosinophils # 0.3 Basophils # 0.0 Nucleated Red Blood Cells # 0.0 Sodium Level 147 H Potassium Level 3.9 Chloride Level 87 L Carbon Dioxide Level Anion Gap 16 Blood Urea Nitrogen 55 H Creatinine 1.17 Glucose Level 154 Calcium Level 9.3 Phosphorus Level 4.8 Magnesium Level 1.6 L Iron Level 27 L Total Iron Binding Capacity 320 Percent Iron Saturation 8 L Ferritin 74.7 Thyroid Stimulating Hormone (TSH) 1.090 Free Thyroxine 1.27 Test 12/01/16 07:46 Bedside Glucose 148 Medications Current Medications Ondansetron HCl (Zofran Inj) 4 mg Q6H PRN IV NAUSEA AND/OR VOMITING; Start at 12:30 Acetaminophen (Tylenol Tab) 650 mg Q6H PRN PO PAIN LEVEL 1-3 OR FEVER Last administered on 11/29/16 19:32; Admin Dose 650 MG; Start 11/26/16 at 12:30 Acetaminophen/ Hydrocodone Bitart ([place] (5/325)) 1 tab Q6H PRN PO MODERATE PAIN LEVEL 4-6; Start 11/26/16 at 12:30 Morphine Sulfate (morphine) 2 mg Q4H PRN IV SEVERE PAIN LEVEL 7-10; Start 11/26 at 12:30 Docusate Sodium (Colace) 100 mg Q12H PRN PO CONSTIPATION Last administered on 01:55; Admin Dose 100 MG; Start 11/26/16 at 12:30 Zolpidem Tartrate (Ambien) 5 mg QHS PRN PO SLEEP; Start 11/26/16 at 12:30 Aspirin (Aspirin) 81 mg DAILY PO Last administered on 12/01/16 07:49; Admin Dose 81 MG; Start 11/27/16 at 09:00 Gabapentin (Neurontin) 300 mg TID PO Last administered on 12/01/16 07:49; Admin Dose 300 MG; Start 11/26/16 at 13:00 Lisinopril (Zestril) 40 mg DAILY PO Last administered on 12/01/16 07:50; Admin Dose 40 MG; Start 11/26/16 at 12:30 Metoprolol Succinate (Toprol Xl) 25 mg BID PO Last administered on 12/01/16 07 :50; Admin Dose 25 MG; Start 11/26/16 at 12:30 Nifedipine (Procardia Xl) 60 mg DAILY PO Last administered on 12/01/16 07:49; Admin Dose 60 MG; Start 11/26/16 at 12:30 Salmeterol Xinafoate/ Fluticasone (Advair 250/50 Diskus) 1 inh BID INH Last administered on 12/01/16 10:04; Admin Dose 1 INH; Start 11/26/16 at 21:00 Hydralazine HCl (Apresoline) 10 mg Q4H PRN IV SBP>170 Last administered on 11/28 04:05; Admin Dose 10 MG; Start 11/26/16 at 12:30 Miscellaneous Information 1 ea NOTE XX ; Start 11/26/16 at 12:30 Glucose (Glutose) 15 gm Q15M PRN PO DECREASED GLUCOSE; Start 11/26/16 at 12:30 Glucose (Glutose) 22.5 gm Q15M PRN PO DECREASED GLUCOSE; Start 11/26/16 at 12: 30 Dextrose (D50w Syringe) 25 ml Q15M PRN IV DECREASED GLUCOSE; Start 11/26/16 at 12:30 Dextrose (D50w Syringe) 50 ml Q15M PRN IV DECREASED GLUCOSE; Start 11/26/16 at 12:30 Glucagon (Glucagen) 1 mg Q15M PRN IM DECREASED GLUCOSE; Start 11/26/16 at 12:30 Glucose 15 gm 15 gm Q15M PRN BUCCAL DECREASED GLUCOSE; Start 11/26/16 at 12:30 Ceftriaxone Sodium 50 ml @ 100 mls/hr Q24H IVPB Last administered on 16:54; Admin Dose 100 MLS/HR; Start 11/26/16 at 17:00 Azithromycin (Zithromax 500mg/ NS (Pmx)) 250 ml @ 250 mls/hr Q24H IVPB Last administered on 11/30/16 17:07; Admin Dose 250 MLS/HR; Start 11/26/16 at 18:00 Diagnostic Test (Pha) (Accu-Chek) 1 ea 02 XX Last administered on 11/30/16 02: 16; Admin Dose 1 EA; Start 11/27/16 at 02:00 Diagnostic Test (Pha) (Accu-Chek) 1 ea 02 XX Last administered on 11/30/16 02: 16; Admin Dose 1 EA; Start 11/27/16 at 02:00 Insulin Glargine (Lantus) 30 unit QHS SC Last administered on 12/01/16 02:03; Admin Dose 30 UNIT; Start 11/28/16 at 21:00 Metolazone (Zaroxolyn) 5 mg DAILY@06 PO Last administered on 12/01/16 06:13; Admin Dose 5 MG; Start 11/28/16 at 14:30 Heparin Sodium (Porcine) (Heparin (5000 Units/0.5 ml)) 5,000 unit BID SC Last administered on 12/01/16 07:54; Admin Dose 5,000 UNIT; Start 11/30/16 at 21:00 Famotidine (Pepcid) 20 mg BID PO Last administered on 12/01/16 07:48; Admin Dose 20 MG; Start 11/30/16 at 21:00 Ferrous Sulfate (Ferrous Sulfate (Ec)) 325 mg BID PO ; Start 12/01/16 at 21:00 Assessment/Plan Chief Complaint/Hosp Course GENERAL: Obese [place]ian gentleman comfortable at rest sleeping this morning. VITAL SIGNS: per chart NECK: Supple. No JVD or lymphadenopathy. CARDIAC EXAM: S1, S2. No added sounds or murmurs. CHEST: Diminished air entry both lung bases few rales. ABDOMEN: Soft, nontender. No guarding or rebound. EXTREMITIES: No cyanosis, clubbing or edema. NEUROLOGIC: Generalized weakness. No focal deficits. Labs White count 11.9 hemoglobin 11.6 platelets 263 Bicarb 46 BUN 54 creatinine 0.93 Chest x-ray shows ongoing congestive cardiac failure possible right pleural effusion Assessment 1. Hypoxemic respiratory failure combination of heart failure and COPD exacerbation 2. Congestive cardiac failure with pleural effusions pleural fluid was not sent for studies. Cardiology consultation for CHF 3. Morbid obesity 4. Diabetes mellitus Plan 1. Continue current antibiotics. 2. Continue current glycemic management 3. Diuretics 4. Echocardiogram cardiology consult 5. DVT GI prophylaxis 6. Ambulate record oxygen saturations. 7. Trial of steroids for bronchospasm Continue telemetry care. Problems: KEYSHA FONSECA MD, [facility] Dec 01, 2016 11:30
[2016-12-01] MEDS: METHYLPREDNISOLONE 40 MG INJ IV SCH ×2 (14:43→21:59)
[2016-12-01] MEDS: CEFTRIAXONE 1 GM/50 ML (PMX) 50 ML IVPB SCH (17:00)
[2016-12-01] MEDS: AZITHROMYCIN 500MG/NS (PMX) 250 ML IVPB SCH (17:00)
[2016-12-01] MEDS: FERROUS SULFATE (EC) 325 MG TAB PO SCH (20:10)
[2016-12-01] MEDS: NIFEdipine (XL) 30 MG TAB PO SCH (20:14)
--- NOTE | 2016-12-01 20:52 | RADRPT ---
Echocardiogram Report Patient Name: MIGUEL ÁNGEL SAMAYOA Gender: Male Date: 1955 Study Date: 01-Dec-2016 Moisture Tester: [facility] Location: [id number] Ref. Physician: NILES AYALA Quality: Adequate Procedures: Transthoracic echocardiogram with complete 2D, M-Mode, and doppler examination. Indications: Evaluate Left Ventricular function. 2D/M Mode Doppler Measurement Value Normal Ranges Measurement Value Normal Ranges LVIDd 2D 4.4 3.5 - 5.6 cm AV Peak Domenico 1.6 m/sec LVIDs 2D 1.9 2.1 - 4.1 cm AV Peak PG 10.0 mmHg LVPWd 2D 1.5 0.6 - 1.1 cm LVOT Peak Domenico 1.3 m/sec IVSd 2D 1.6 0.6 - 1.1 cm LVOT Peak PG 7.0 mmHg AoR Diam 2D 2.7 2.0 - 3.7 cm MV E Peak Domenico 0.6 m/sec LA Dimen 2D 4.8 2.3 - 4.0 cm MV A Peak Domenico 0.9 m/sec MV E/A 0.7 MV Decel Time 211 msec MV E/A 0.7 TR Peak Domenico 2.5 m/sec TR Peak PG 26.0 mmHg RVSP 34.0 mmHg Findings Left Ventricle: Hyperdynamic left ventricular systolic function. Normal left ventricular cavity size. Moderate concentric left ventricular hypertrophy. Ejection fraction is visually estimated at 6065 %. Tissue Doppler/Mitral Doppler indices are consistent with impaired relaxation (Stage I diastolic dysfunction). Right Ventricle: Normal right ventricular size. Normal right ventricular systolic function. Left Atrium: The left atrium is normal in size. Right Atrium: The right atrium is normal in size. Mitral Valve: Mild mitral leaflet calcification. Mild mitral annular calcification. Trace mitral regurgitation. Aortic Valve: Normal appearance of the aortic valve. No significant aortic stenosis or insufficiency. Tricuspid Valve: Normal appearance of the tricuspid valve. Estimated peak PA systolic pressure 34 mmHg. There is mild tricuspid regurgitation. Pulmonic Valve: Normal pulmonic valve appearance. Pericardium: Normal pericardium with no significant pericardial effusion. Aorta: Normal aortic root. IVC: Normal size and no respiratory collapse consistent with elevated right atrial pressure. Conclusions 1.Hyperdynamic left ventricular systolic function. Normal left ventricular cavity size. Moderate concentric left ventricular hypertrophy. Ejection fraction is visually estimated at 60-65 %. Tissue Doppler/Mitral Doppler indices are consistent with impaired relaxation (Stage I diastolic dysfunction). 2.Mild mitral leaflet calcification. Mild mitral annular calcification. Trace mitral regurgitation. 3.Normal appearance of the tricuspid valve. Estimated peak PA systolic pressure 34 mmHg. There is mild tricuspid regurgitation. Electronically Signed By: Humble Yin 01-Dec-2016 20:51:45 -0700 Patient Name: MIGUEL ÁNGEL SAMAYOA Study Date: 01-Dec-2016 [id number]
[2016-12-02] VITALS (13 sets, daily range): BP systolic 109–157; BP diastolic 58–78; PULSE 81–93; RESP 16–20
[2016-12-02] MEDS: ACCU-CHEK XX SCH ×2 (01:16)
[2016-12-02] MEDS ORDERED: INSULIN ASPART [NOVOLOG] 3 ML PEN SC ONE ×3 (02:00→07:00)
[2016-12-02] MEDS ORDERED: SOD CHLORIDE 0.9% 500 ML IV ONE (04:30)
[2016-12-02 04:43] LABS: HEMATOCRIT 37.5 % (42.0-52.0); HEMOGLOBIN 11.9 g/dl (14.0-18.0); LYMPHOCYTES # 0.6 10^3/ul (0.8-2.9); LYMPHOCYTES % 5.9 % (15.0-51.0); MEAN CORPUSCULAR HEMOGLOBIN 27.9 pg (29.0-33.0); MEAN CORPUSCULAR HGB CONC 31.7 g/dl (32.0-37.0); MEAN CORPUSCULAR VOLUME 87.8 fl (82.0-101.0); MEAN PLATELET VOLUME 10.1 fl (7.4-10.4); MONOCYTE # 0.2 10^3/ul (0.3-0.9); MONOCYTES % 1.9 % (0.0-11.0); NEUTROPHIL # 9.3 10^3/ul (1.6-7.5); NEUTROPHILS % 91.6 % (39.0-77.0); PLATELET COUNT 269 10^3/UL (140-415); RED BLOOD COUNT 4.27 10^6/ul (4.70-6.10); RED CELL DISTRIBUTION WIDTH 13.5 % (11.5-14.5); WHITE BLOOD COUNT 10.2 10^3/ul (4.8-10.8)
[2016-12-02 05:02] LABS: CALCIUM 9.5 mg/dl (8.4-10.2); CHOL/HDL RATIO 2.9 RATIO; CREATININE 1.39 mg/dl (0.61-1.24); POTASSIUM 4.5 mmol/L (3.5-5.1)
[2016-12-02 05:03] LABS: MAGNESIUM 1.7 mg/dl (1.7-2.5); PHOSPHORUS 4.3 mg/dl (2.5-4.9)
[2016-12-02] MEDS: METHYLPREDNISOLONE 40 MG INJ IV SCH ×2 (06:00→20:44)
[2016-12-02] MEDS: FUROSEMIDE 40 MG INJ IV SCH (06:40)
[2016-12-02] MEDS: METOLAZONE 5 MG TAB PO SCH (06:40)
--- NOTE | 2016-12-02 07:44 | RADRPT ---
PROCEDURE: XR Chest. CLINICAL INDICATION: pna chf TECHNIQUE: Single frontal view of the chest was obtained COMPARISON: Chest x-ray 11/30/2016 FINDINGS: The cardiac silhouette is moderately enlarged. There are atherosclerotic calcifications of the aort ic arch. Small moderate pleural effusion with adjacent air space disease is unchanged. Ill-defined opacity in the left lower lung is stable and may represent edema, atelectasis, and / or consolidation. No pneumothorax is identified. There are degenerative changes of the visualized spine. IMPRESSION: 1. Small to moderate right pleural effusion with adjacent airspace disease, unchanged from prior st udy. 2. Ill-defined left basilar opacity which may represent edema, atelectasis, and / or consolidation, unchanged. 3. Moderate cardiomegaly. 4. Thoracic aortic atherosclerotic disease. RPTAT: PP Physician Kalyn Date Time Electronically viewed and signed by Physician Kalyn on 12/02/2016 07:44 /
[2016-12-02] MEDS: INSULIN ASPART [NOVOLOG] 3 ML PEN SC SCH ×7 (08:28→20:53)
[2016-12-02] MEDS: metFORMIN 500 MG TAB PO SCH (08:32)
[2016-12-02 08:40] LABS: ALBUMIN/GLOBULIN RATIO 1.21; BILIRUBIN,INDIRECT 0.2 mg/dl (0-1.1); BILIRUBIN,TOTAL 0.2 mg/dl (0.2-1.3); CALCIUM 9.5 mg/dl (8.4-10.2); CREATININE 1.34 mg/dl (0.61-1.24); TOTAL PROTEIN 7.3 g/dl (6.1-8.1)
[2016-12-02] MEDS: HEPARIN 5,000 UNIT/0.5 ML VIAL SC SCH ×2 (08:47→20:54)
[2016-12-02] MEDS: SALMETEROL/FLUTICASONE 250/50 INHA INH SCH ×2 (08:52→20:48)
[2016-12-02] MEDS: ASPIRIN 81 MG TAB PO SCH (08:53)
[2016-12-02] MEDS: FERROUS SULFATE (EC) 325 MG TAB PO SCH ×2 (08:53→20:49)
[2016-12-02] MEDS: FAMOTIDINE 20 MG TAB PO SCH ×2 (08:54→20:49)
[2016-12-02] MEDS: GABAPENTIN 300 MG CAP PO SCH ×3 (08:54→20:49)
[2016-12-02] MEDS: NIFEdipine (XL) 60 MG TAB PO SCH (08:56)
[2016-12-02] MEDS: METOPROLOL (XL) 25 MG TAB PO SCH ×2 (08:57→20:48)
[2016-12-02] MEDS: LISINOPRIL 20 MG TAB PO SCH (08:57)
--- NOTE | 2016-12-02 09:04 | RADRPT ---
Vent Rate: 86 bpm RR Interval: 0 msec NC Interval: 212 msec QRS Duration: 98 msec QT Interval: 414 msec QTC Interval: 495 msec P-R-T Plover: 53 - -18 - 47 degrees Sinus rhythm with 1st degree AV block Possible Left atrial enlargement Cannot rule out Anterior infarct , age undetermined Abnormal ECG Electronically Signed By: Good Cardozo [id number]
--- NOTE | 2016-12-02 10:38 | PN ---
Date/Time of Note Date/Time of Note DATE: 12/02/16 TIME: 10:38 Assessment/Plan VTE Prophylaxis VTE Prophylaxis Intervention: heparin Lines/Catheters IV C[facility]ter Type (from [facility] Peripheral IV Urinary Cath still in place: No Assessment/Plan Chief Complaint/Hosp Course 1. Acute respiratory failure. Hypoxic. Secondary to COPD exacerbation and possibly a component of diastolic heart failure. Continue inhaled bronchodilators. The patient being followed by pulmonology. 2. Type 2 diabetes mellitus. Hemoglobin A1c 8.2. Blood sugars uncontrolled because of underlying steroid use. Will adjust insulin dosing to obtain optimal blood sugar control. 3. Recurrent right-sided pleural effusion. Status post thoracentesis on 2016 with the drainage is 1.7 L of serous fluid. Unfortunately, fluid studies were not sent on this patient. Being followed by pulmonary. 4. Anemia. Normocytic and hypochromic. Etiology unclear. Will monitor H&H closely. Iron panel showing low iron and low iron saturation. Continue the patient on iron supplements. 5. Essential hypertension. Continue antihypertensives. 6. Acute kidney injury. Etiology unclear. Probably from overdiuresis versus others. Will involve nephrology on the case. 7. Fluids, electrolytes, and nutrition. Carbohydrate controlled diet. 8. DVT prophylaxis with subcutaneous heparin. 9. Gastrointestinal prophylaxis. Histamine 2 receptor blockers. 10. Plan. Continue careful diuresis. Continue inhaled bronchodilators. Adjust insulin dosing to obtain optimal blood sugar control. Add scheduled NPH with Solu-Medrol. Obtain nephrology consult. Case discussed with Dr. Gilmore. Problems: Subjective 24 Hr Interval Summary Free Text/Dictation The patient's blood sugars have been running high. Exam/Review of Systems Vital Signs Vitals Vital Signs Date Time Temp Pulse Resp B/P Pulse Ox O2 Delivery O2 Flow Rate FiO2 12/02/16 08:11 87 12/02/16 07:51 98.2 18 157/78 94 12/02/16 05:58 4.0 12/02/16 01:10 Nasal Cannula 11/29/16 02:22 27 Intake and Output 12/01/16 12/01/16 12/02/16 15:00 23:00 07:00 Intake Total 600 ml Output Total 2200 ml Balance -1600 ml Exam General: Obese 61 year-old male lying in bed in no apparent distress. HEENT: Normocephalic, atraumatic. Eyes: Anicteric sclerae, conjunctivae clear. ENT: Nasal septum midline, oral mucosa moist. Neck supple, no JVD noticed. Respiratory: Bilaterally diminished breath sounds. No use of accessory muscles of respiration. Scattered rhonchi. Cardiovascular: S1, S2 heard. No murmurs or gallops. Abdomen: Soft, nontender, and nondistended. Bowel sounds positive in all 4 quadrants. Genitourinary: Deferred. Extremities: No cyanosis, no clubbing, trace B/L pedal edema. Peripheral pulses palpable. Neurologic: Cranial nerves II through XII grossly intact. The patient is awake, alert, and oriented. Skin: Normal skin turgor. No skin rashes. Results Result Diagram: 12/02/16 0435 12/02/16 0718 Results 24 hrs Laboratory Tests Test 12/01/16 11:23 12/01/16 16:53 12/01/16 17:32 12/01/16 20:06 Bedside Glucose 134 213 277 H Troponin I 0.021 Test 12/02/16 01:00 12/02/16 01:01 12/02/16 01:22 12/02/16 01:27 Glucose Level 474 #*H Troponin I 0.020 Bedside Glucose 436 *H 478 *H Test 12/02/16 04:12 12/02/16 04:14 12/02/16 04:35 12/02/16 06:36 Bedside Glucose 473 *H 525 *H 470 *H White Blood Count 10.2 Red Blood Count 4.27 L Hemoglobin 11.9 L Hematocrit 37.5 L Mean Corpuscular Volume 87.8 Mean Corpuscular Hemoglobin 27.9 L Mean Corpuscular Hemoglobin Concent 31.7 L Red Cell Distribution Width 13.5 Platelet Count 269 Mean Platelet Volume 10.1 Neutrophils % 91.6 H Lymphocytes % 5.9 L Monocytes % 1.9 Eosinophils % 0.0 Basophils % 0.0 Nucleated Red Blood Cells % 0.0 Neutrophils # 9.3 H Lymphocytes # 0.6 L Monocytes # 0.2 L Eosinophils # 0.0 Basophils # 0.0 Nucleated Red Blood Cells # 0.0 Sodium Level 139 Potassium Level 4.5 Chloride Level 81 L Carbon Dioxide Level 46 *H Anion Gap 17 H Blood Urea Nitrogen 82 H Creatinine 1.39 H Glucose Level 535 *H Calcium Level 9.5 Phosphorus Level 4.3 Magnesium Level 1.7 Troponin I 0.022 Triglycerides Level 106 Cholesterol Level 145 LDL Cholesterol, Calculated 75 HDL Cholesterol 49 Cholesterol/HDL Ratio 2.9 Test 12/02/16 07:18 12/02/16 08:10 12/02/16 09:41 Sodium Level 141 Potassium Level 4.0 Chloride Level 85 L Carbon Dioxide Level 42 *H Anion Gap 20 H Blood Urea Nitrogen 76 H Creatinine 1.34 H Glucose Level 462 *H Calcium Level 9.5 Total Bilirubin 0.2 Direct Bilirubin 0.00 Indirect Bilirubin 0.2 Aspartate Amino Transf (AST/SGOT) 18 Alanine Aminotransferase (ALT/SGPT) 58 Alkaline Phosphatase 76 Total Protein 7.3 Albumin 4.0 Globulin 3.30 H Albumin/Globulin Ratio 1.21 Bedside Glucose 424 *H 362 H Medications Medications Current Medications Ondansetron HCl (Zofran Inj) 4 mg Q6H PRN IV NAUSEA AND/OR VOMITING; Start at 12:30 Acetaminophen (Tylenol Tab) 650 mg Q6H PRN PO PAIN LEVEL 1-3 OR FEVER Last administered on 11/29/16 19:32; Admin Dose 650 MG; Start 11/26/16 at 12:30 Acetaminophen/ Hydrocodone Bitart (Cyrus (5/325)) 1 tab Q6H PRN PO MODERATE PAIN LEVEL 4-6; Start 11/26/16 at 12:30 Morphine Sulfate (morphine) 2 mg Q4H PRN IV SEVERE PAIN LEVEL 7-10; Start 11/26 at 12:30 Docusate Sodium (Colace) 100 mg Q12H PRN PO CONSTIPATION Last administered on 01:55; Admin Dose 100 MG; Start 11/26/16 at 12:30 Zolpidem Tartrate (Ambien) 5 mg QHS PRN PO SLEEP; Start 11/26/16 at 12:30 Aspirin (Aspirin) 81 mg DAILY PO Last administered on 12/02/16 08:53; Admin Dose 81 MG; Start 11/27/16 at 09:00 Gabapentin (Neurontin) 300 mg TID PO Last administered on 12/02/16 08:54; Admin Dose 300 MG; Start 11/26/16 at 13:00 Lisinopril (Zestril) 40 mg DAILY PO Last administered on 12/02/16 08:57; Admin Dose 40 MG; Start 11/26/16 at 12:30 Metoprolol Succinate (Toprol Xl) 25 mg BID PO Last administered on 12/02/16 08 :57; Admin Dose 25 MG; Start 11/26/16 at 12:30 Nifedipine (Procardia Xl) 60 mg DAILY PO Last administered on 12/02/16 08:56; Admin Dose 60 MG; Start 11/26/16 at 12:30 Salmeterol Xinafoate/ Fluticasone (Advair 250/50 Diskus) 1 inh BID INH Last administered on 12/02/16 08:52; Admin Dose 1 INH; Start 11/26/16 at 21:00 Hydralazine HCl (Apresoline) 10 mg Q4H PRN IV SBP>170 Last administered on 11/28 04:05; Admin Dose 10 MG; Start 11/26/16 at 12:30 Miscellaneous Information 1 ea NOTE XX ; Start 11/26/16 at 12:30 Glucose (Glutose) 15 gm Q15M PRN PO DECREASED GLUCOSE; Start 11/26/16 at 12:30 Glucose (Glutose) 22.5 gm Q15M PRN PO DECREASED GLUCOSE; Start 11/26/16 at 12: 30 Dextrose (D50w Syringe) 25 ml Q15M PRN IV DECREASED GLUCOSE; Start 11/26/16 at 12:30 Dextrose (D50w Syringe) 50 ml Q15M PRN IV DECREASED GLUCOSE; Start 11/26/16 at 12:30 Glucagon (Glucagen) 1 mg Q15M PRN IM DECREASED GLUCOSE; Start 11/26/16 at 12:30 Glucose 15 gm 15 gm Q15M PRN BUCCAL DECREASED GLUCOSE; Start 11/26/16 at 12:30 Ceftriaxone Sodium 50 ml @ 100 mls/hr Q24H IVPB Last administered on 17:00; Admin Dose 100 MLS/HR; Start 11/26/16 at 17:00 Azithromycin (Zithromax 500mg/ NS (Pmx)) 250 ml @ 250 mls/hr Q24H IVPB Last administered on 12/01/16 17:00; Admin Dose 250 MLS/HR; Start 11/26/16 at 18:00 Diagnostic Test (Pha) (Accu-Chek) 1 ea 02 XX Last administered on 12/02/16 01: 16; Admin Dose 1 EA; Start 11/27/16 at 02:00 Diagnostic Test (Pha) (Accu-Chek) 1 ea 02 XX Last administered on 12/02/16 01: 16; Admin Dose 1 EA; Start 11/27/16 at 02:00 Insulin Glargine (Lantus) 30 unit QHS SC Last administered on 12/01/16 20:25; Admin Dose 30 UNIT; Start 11/28/16 at 21:00 Metolazone (Zaroxolyn) 5 mg DAILY@06 PO Last administered on 12/02/16 06:40; Admin Dose 5 MG; Start 11/28/16 at 14:30 Heparin Sodium (Porcine) (Heparin (5000 Units/0.5 ml)) 5,000 unit BID SC Last administered on 12/02/16 08:47; Admin Dose 5,000 UNIT; Start 11/30/16 at 21:00 Famotidine (Pepcid) 20 mg BID PO Last administered on 12/02/16 08:54; Admin Dose 20 MG; Start 11/30/16 at 21:00 Ferrous Sulfate (Ferrous Sulfate (Ec)) 325 mg BID PO Last administered on 08:53; Admin Dose 325 MG; Start 12/01/16 at 21:00 Methylprednisolone Sodium Succinate (Solu-Medrol) 40 mg Q8 IV Last administered on 12/01/16 21:59; Admin Dose 40 MG; Start 12/01/16 at 14:00 Nifedipine (Procardia Xl) 30 mg HS PO Last administered on 12/01/16 20:14; Admin Dose 30 MG; Start 12/01/16 at 21:00 NILES AYALA NP Dec 02, 2016 10:38
[2016-12-02] MEDS ORDERED: NPH, HUMAN INSULIN ISOPHANE 3ML VIAL SC ONE (11:00)
[2016-12-02] MEDS ORDERED: ACETAZOLAMIDE 500 MG INJ IV ONE (12:00)
--- NOTE | 2016-12-02 12:37 | CONS ---
Date/Time of Note Date/Time of Note DATE: 12/02/16 TIME: 12:26 Assessment/Plan Assessment/Plan Chief Complaint/Hosp Course IMP: 1.CHF-diastolic chronic- Echo 12/01 EF 55-60/DD/MR/TR 2.HTN 3.PLeural effusion- R sided 4.HTN 5.DM 6.Anemia 7. Renal failure 8. Copd Rec: -Tele -serial ecg's -Decrease lasix -consider thoracentesis -Continue asa -Continue procardia XL/Topol XL Problems: Consultation Date/Type/Reason Admit Date/Time Nov 26, 2016 at 08:55 Initial Consult Date 11/28/16 Type of Consultation: cardiology Reason for Consultation CHF Referring Provider: JERMAINE TEJADA Exam/Review of Systems Vital Signs Vitals Vital Signs Date Time Temp Pulse Resp B/P Pulse Ox O2 Delivery O2 Flow Rate FiO2 12/02/16 12:17 92 12/02/16 11:17 98.7 17 122/58 99 12/02/16 05:58 4.0 12/02/16 01:10 Nasal Cannula 11/29/16 02:22 27 Intake and Output 12/01/16 12/01/16 12/02/16 15:00 23:00 07:00 Intake Total 600 ml Output Total 2200 ml Balance -1600 ml Exam Review of Systems: CONSTITUTIONAL: No fevers, chills. PULMONARY: No sob CARDIOVASCULAR: No chest pain/palpitations GASTROINTESTINAL: No nausea/vomiting. GENITOURINARY: No hematuria/dysuria. MUSCULOSKELETAL: No myagias/arthalgias. PSYCHIATRIC: The patient denies depression. NEUROLOGIC: lethargic Constitutional: alert Psych: no complaints Head: normocephalic ENMT: mucosa pink and moist Neck: jvd (9 cm water), supple Respiratory: diminished breath sounds Cardiovascular: regular rate and rhythm Gastrointestinal: soft Musculoskeletal: muscle tone Extremities: edema (none), normal pulses Neurological: other (No focal deficits) Results Result Diagram: 12/02/16 0435 12/02/16 0718 Results 24 hrs Laboratory Tests Test 12/01/16 16:53 12/01/16 17:32 12/01/16 20:06 12/02/16 01:00 Bedside Glucose 213 277 H Troponin I 0.021 Glucose Level 474 #*H Test 12/02/16 01:01 12/02/16 01:22 12/02/16 01:27 12/02/16 04:12 Troponin I 0.020 Bedside Glucose 436 *H 478 *H 473 *H Test 12/02/16 04:14 12/02/16 04:35 12/02/16 06:36 12/02/16 07:18 Bedside Glucose 525 *H 470 *H White Blood Count 10.2 Red Blood Count 4.27 L Hemoglobin 11.9 L Hematocrit 37.5 L Mean Corpuscular Volume 87.8 Mean Corpuscular Hemoglobin 27.9 L Mean Corpuscular Hemoglobin Concent 31.7 L Red Cell Distribution Width 13.5 Platelet Count 269 Mean Platelet Volume 10.1 Neutrophils % 91.6 H Lymphocytes % 5.9 L Monocytes % 1.9 Eosinophils % 0.0 Basophils % 0.0 Nucleated Red Blood Cells % 0.0 Neutrophils # 9.3 H Lymphocytes # 0.6 L Monocytes # 0.2 L Eosinophils # 0.0 Basophils # 0.0 Nucleated Red Blood Cells # 0.0 Sodium Level 139 141 Potassium Level 4.5 4.0 Chloride Level 81 L 85 L Carbon Dioxide Level 46 *H 42 *H Anion Gap 17 H 20 H Blood Urea Nitrogen 82 H 76 H Creatinine 1.39 H 1.34 H Glucose Level 535 *H 462 *H Calcium Level 9.5 9.5 Phosphorus Level 4.3 Magnesium Level 1.7 Troponin I 0.022 Triglycerides Level 106 Cholesterol Level 145 LDL Cholesterol, Calculated 75 HDL Cholesterol 49 Cholesterol/HDL Ratio 2.9 Total Bilirubin 0.2 Direct Bilirubin 0.00 Indirect Bilirubin 0.2 Aspartate Amino Transf (AST/SGOT) 18 Alanine Aminotransferase (ALT/SGPT) 58 Alkaline Phosphatase 76 Total Protein 7.3 Albumin 4.0 Globulin 3.30 H Albumin/Globulin Ratio 1.21 Test 12/02/16 08:10 12/02/16 09:41 12/02/16 12:10 Bedside Glucose 424 *H 362 H 349 H Medications Medications Current Medications Ondansetron HCl (Zofran Inj) 4 mg Q6H PRN IV NAUSEA AND/OR VOMITING; Start at 12:30 Acetaminophen (Tylenol Tab) 650 mg Q6H PRN PO PAIN LEVEL 1-3 OR FEVER Last administered on 11/29/16t 19:32; Admin Dose 650 MG; Start 11/26/16 at 12:30 Acetaminophen/ Hydrocodone Bitart (Edgar (5/325)) 1 tab Q6H PRN PO MODERATE PAIN LEVEL 4-6; Start 11/26/16 at 12:30 Morphine Sulfate (morphine) 2 mg Q4H PRN IV SEVERE PAIN LEVEL 7-10; Start 11/26 at 12:30 Docusate Sodium (Colace) 100 mg Q12H PRN PO CONSTIPATION Last administered on 01:55; Admin Dose 100 MG; Start 11/26/16 at 12:30 Zolpidem Tartrate (Ambien) 5 mg QHS PRN PO SLEEP; Start 11/26/16 at 12:30 Aspirin (Aspirin) 81 mg DAILY PO Last administered on 12/02/16 08:53; Admin Dose 81 MG; Start 11/27/16 at 09:00 Gabapentin (Neurontin) 300 mg TID PO Last administered on 12/02/16 08:54; Admin Dose 300 MG; Start 11/26/16 at 13:00 Lisinopril (Zestril) 40 mg DAILY PO Last administered on 12/02/16 08:57; Admin Dose 40 MG; Start 11/26/16 at 12:30; Status Future Hold Metoprolol Succinate (Toprol Xl) 25 mg BID PO Last administered on 12/02/16 08 :57; Admin Dose 25 MG; Start 11/26/16 at 12:30 Nifedipine (Procardia Xl) 60 mg DAILY PO Last administered on 12/02/16 08:56; Admin Dose 60 MG; Start 11/26/16 at 12:30 Salmeterol Xinafoate/ Fluticasone (Advair 250/50 Diskus) 1 inh BID INH Last administered on 12/02/16 08:52; Admin Dose 1 INH; Start 11/26/16 at 21:00 Hydralazine HCl (Apresoline) 10 mg Q4H PRN IV SBP>170 Last administered on 11/28 04:05; Admin Dose 10 MG; Start 11/26/16 at 12:30 Miscellaneous Information 1 ea NOTE XX ; Start 11/26/16 at 12:30 Glucose (Glutose) 15 gm Q15M PRN PO DECREASED GLUCOSE; Start 11/26/16 at 12:30 Glucose (Glutose) 22.5 gm Q15M PRN PO DECREASED GLUCOSE; Start 11/26/16 at 12: 30 Dextrose (D50w Syringe) 25 ml Q15M PRN IV DECREASED GLUCOSE; Start 11/26/16 at 12:30 Dextrose (D50w Syringe) 50 ml Q15M PRN IV DECREASED GLUCOSE; Start 11/26/16 at 12:30 Glucagon (Glucagen) 1 mg Q15M PRN IM DECREASED GLUCOSE; Start 11/26/16 at 12:30 Glucose 15 gm 15 gm Q15M PRN BUCCAL DECREASED GLUCOSE; Start 11/26/16 at 12:30 Ceftriaxone Sodium 50 ml @ 100 mls/hr Q24H IVPB Last administered on 17:00; Admin Dose 100 MLS/HR; Start 11/26/16 at 17:00 Azithromycin (Zithromax 500mg/ NS (Pmx)) 250 ml @ 250 mls/hr Q24H IVPB Last administered on 12/01/16 17:00; Admin Dose 250 MLS/HR; Start 11/26/16 at 18:00 Diagnostic Test (Pha) (Accu-Chek) 1 ea 02 XX Last administered on 12/02/16 01: 16; Admin Dose 1 EA; Start 11/27/16 at 02:00 Diagnostic Test (Pha) (Accu-Chek) 1 ea 02 XX Last administered on 12/02/16 01: 16; Admin Dose 1 EA; Start 11/27/16 at 02:00 Heparin Sodium (Porcine) (Heparin (5000 Units/0.5 ml)) 5,000 unit BID SC Last administered on 12/02/16 08:47; Admin Dose 5,000 UNIT; Start 11/30/16 at 21:00 Famotidine (Pepcid) 20 mg BID PO Last administered on 12/02/16 08:54; Admin Dose 20 MG; Start 11/30/16 at 21:00 Ferrous Sulfate (Ferrous Sulfate (Ec)) 325 mg BID PO Last administered on 08:53; Admin Dose 325 MG; Start 12/01/16 at 21:00 Nifedipine (Procardia Xl) 30 mg HS PO Last administered on 12/01/16 20:14; Admin Dose 30 MG; Start 12/01/16 at 21:00 Methylprednisolone Sodium Succinate (Solu-Medrol) 40 mg Q12 IV ; Start 12/02/16 at 21:00 Insulin Human NPH (Humulin N) 10 unit BID@08,20 SC ; Start 12/02/16 at 20:00 Insulin Glargine (Lantus) 33 unit QHS SC ; Start 12/02/16 at 21:00 JOSÉ GARCIA Dec 02, 2016 12:37
--- NOTE | 2016-12-02 13:06 | RADRPT ---
PROCEDURE: Renal US. CLINICAL INDICATION: Acute kidney injury. TECHNIQUE: Multiple sonographic images of the kidneys and urinary bladder were obtained. The imag es were reviewed on a PACS workstation. COMPARISON: No prior studies are available for comparison. FINDINGS: The right kidney measures 13.7 x 6.8 x 7.5 cm. The left kidney measures 14.9 x 7.3 x 5.9 cm. There is no solid renal mass. There is a benign cyst in the lower right kidney measuring 1.4 cm and a benign cyst in the upper left kidney measuring 1.7 cm. There is no hydronephrosis. There is no renal calculus. Renal parenchymal thickness is normal bilaterally. Echogenicity is normal bilaterally. The perirenal regions are normal with no fluid collection or mass. The bladder is unremarkable. The prostate is enlarged. IMPRESSION: 1. No hydronephrosis. 2. Benign bilateral renal cysts. 3. Enlarged prostate. 4. Otherwise unremarkable study. RPTAT: QQ .Kayden Cervantes MD, MD Date Time Electronically viewed and signed by .Kayden Cervantes MD, MD on 12/02/2016 13:05 .R/
--- NOTE | 2016-12-02 13:07 | RADRPT ---
PROCEDURE: US Chest. CLINICAL INDICATION: Shortness of breath. TECHNIQUE: Ultrasound of the right hemithorax was performed in the axial and sagittal planes. COMPARISON: Chest x-ray done earlier the same day. FINDINGS: There is a moderate right pleural effusion measuring 12.1 x 5.8 cm. IMPRESSION: 1. Moderate size right pleural effusion. RPTAT: QQ .Kayden Cervantes MD, MD Date Time Electronically viewed and signed by .Kayden Cervantes MD, MD on 12/02/2016 13:06 .R/
--- NOTE | 2016-12-02 15:04 | CONS ---
Date/Time of Note Date/Time of Note DATE: 12/02/16 TIME: 15:03 Consult Date/Type/Reason Admit Date/Time Nov 26, 2016 at 08:55 Initial Consult Date 11/28/16 Type of Consultation: Pulmonary Ordering Provider: JERMAINE TEJADA Subjective Comfortable this morning. Mild exertional dyspnea. Objective Vital Signs Date Time Temp Pulse Resp B/P Pulse Ox O2 Delivery O2 Flow Rate FiO2 12/02/16 12:40 Nasal Cannula 4.0 12/02/16 12:17 92 12/02/16 11:17 98.7 17 122/58 99 11/29/16 02:22 27 Intake and Output 12/01/16 12/01/16 12/02/16 15:00 23:00 07:00 Intake Total 600 ml Output Total 2200 ml Balance -1600 ml Exam GENERAL: Elderly Lebanese gentleman comfortable at rest no acute distress VITAL SIGNS: per chart NECK: Supple. No JVD or lymphadenopathy. CARDIAC EXAM: S1, S2. No added sounds or murmurs. CHEST: Diminished air entry bilaterally few expiratory wheezes ABDOMEN: Soft, nontender. No guarding or rebound. EXTREMITIES: No cyanosis, clubbing or edema +2 NEUROLOGIC: Significant neuromuscular weakness Results/Medications Result Diagram: 12/02/16 0435 12/02/16 0718 Results 24 hrs Laboratory Tests Test 12/01/16 16:53 12/01/16 17:32 12/01/16 20:06 12/02/16 01:00 Bedside Glucose 213 277 H Troponin I 0.021 Glucose Level 474 #*H Test 12/02/16 01:01 12/02/16 01:22 12/02/16 01:27 12/02/16 04:12 Troponin I 0.020 Bedside Glucose 436 *H 478 *H 473 *H Test 12/02/16 04:14 12/02/16 04:35 12/02/16 06:36 12/02/16 07:18 Bedside Glucose 525 *H 470 *H White Blood Count 10.2 Red Blood Count 4.27 L Hemoglobin 11.9 L Hematocrit 37.5 L Mean Corpuscular Volume 87.8 Mean Corpuscular Hemoglobin 27.9 L Mean Corpuscular Hemoglobin Concent 31.7 L Red Cell Distribution Width 13.5 Platelet Count 269 Mean Platelet Volume 10.1 Neutrophils % 91.6 H Lymphocytes % 5.9 L Monocytes % 1.9 Eosinophils % 0.0 Basophils % 0.0 Nucleated Red Blood Cells % 0.0 Neutrophils # 9.3 H Lymphocytes # 0.6 L Monocytes # 0.2 L Eosinophils # 0.0 Basophils # 0.0 Nucleated Red Blood Cells # 0.0 Sodium Level 139 141 Potassium Level 4.5 4.0 Chloride Level 81 L 85 L Carbon Dioxide Level 46 *H 42 *H Anion Gap 17 H 20 H Blood Urea Nitrogen 82 H 76 H Creatinine 1.39 H 1.34 H Glucose Level 535 *H 462 *H Calcium Level 9.5 9.5 Phosphorus Level 4.3 Magnesium Level 1.7 Troponin I 0.022 Triglycerides Level 106 Cholesterol Level 145 LDL Cholesterol, Calculated 75 HDL Cholesterol 49 Cholesterol/HDL Ratio 2.9 Total Bilirubin 0.2 Direct Bilirubin 0.00 Indirect Bilirubin 0.2 Aspartate Amino Transf (AST/SGOT) 18 Alanine Aminotransferase (ALT/SGPT) 58 Alkaline Phosphatase 76 Total Protein 7.3 Albumin 4.0 Globulin 3.30 H Albumin/Globulin Ratio 1.21 Test 12/02/16 08:10 12/02/16 09:41 12/02/16 12:10 Bedside Glucose 424 *H 362 H 349 H Medications Current Medications Ondansetron HCl (Zofran Inj) 4 mg Q6H PRN IV NAUSEA AND/OR VOMITING; Start at 12:30 Acetaminophen (Tylenol Tab) 650 mg Q6H PRN PO PAIN LEVEL 1-3 OR FEVER Last administered on 11/29/16 19:32; Admin Dose 650 MG; Start 11/26/16 at 12:30 Acetaminophen/ Hydrocodone Bitart ([place] (5/325)) 1 tab Q6H PRN PO MODERATE PAIN LEVEL 4-6; Start 11/26/16 at 12:30 Morphine Sulfate (morphine) 2 mg Q4H PRN IV SEVERE PAIN LEVEL 7-10; Start 11/26 at 12:30 Docusate Sodium (Colace) 100 mg Q12H PRN PO CONSTIPATION Last administered on 01:55; Admin Dose 100 MG; Start 11/26/16 at 12:30 Zolpidem Tartrate (Ambien) 5 mg QHS PRN PO SLEEP; Start 11/26/16 at 12:30 Aspirin (Aspirin) 81 mg DAILY PO Last administered on 12/02/16 08:53; Admin Dose 81 MG; Start 11/27/16 at 09:00 Gabapentin (Neurontin) 300 mg TID PO Last administered on 12/02/16 12:50; Admin Dose 300 MG; Start 11/26/16 at 13:00 Lisinopril (Zestril) 40 mg DAILY PO Last administered on 12/02/16 08:57; Admin Dose 40 MG; Start 11/26/16 at 12:30; Status Future Hold Metoprolol Succinate (Toprol Xl) 25 mg BID PO Last administered on 12/02/16 08 :57; Admin Dose 25 MG; Start 11/26/16 at 12:30 Nifedipine (Procardia Xl) 60 mg DAILY PO Last administered on 12/02/16 08:56; Admin Dose 60 MG; Start 11/26/16 at 12:30 Salmeterol Xinafoate/ Fluticasone (Advair 250/50 Diskus) 1 inh BID INH Last administered on 12/02/16 08:52; Admin Dose 1 INH; Start 11/26/16 at 21:00 Hydralazine HCl (Apresoline) 10 mg Q4H PRN IV SBP>170 Last administered on 11/28 04:05; Admin Dose 10 MG; Start 11/26/16 at 12:30 Miscellaneous Information 1 ea NOTE XX ; Start 11/26/16 at 12:30 Glucose (Glutose) 15 gm Q15M PRN PO DECREASED GLUCOSE; Start 11/26/16 at 12:30 Glucose (Glutose) 22.5 gm Q15M PRN PO DECREASED GLUCOSE; Start 11/26/16 at 12: 30 Dextrose (D50w Syringe) 25 ml Q15M PRN IV DECREASED GLUCOSE; Start 11/26/16 at 12:30 Dextrose (D50w Syringe) 50 ml Q15M PRN IV DECREASED GLUCOSE; Start 11/26/16 at 12:30 Glucagon (Glucagen) 1 mg Q15M PRN IM DECREASED GLUCOSE; Start 11/26/16 at 12:30 Glucose 15 gm 15 gm Q15M PRN BUCCAL DECREASED GLUCOSE; Start 11/26/16 at 12:30 Ceftriaxone Sodium 50 ml @ 100 mls/hr Q24H IVPB Last administered on 17:00; Admin Dose 100 MLS/HR; Start 11/26/16 at 17:00 Azithromycin (Zithromax 500mg/ NS (Pmx)) 250 ml @ 250 mls/hr Q24H IVPB Last administered on 12/01/16 17:00; Admin Dose 250 MLS/HR; Start 11/26/16 at 18:00 Diagnostic Test (Pha) (Accu-Chek) 1 ea 02 XX Last administered on 12/02/16 01: 16; Admin Dose 1 EA; Start 11/27/16 at 02:00 Diagnostic Test (Pha) (Accu-Chek) 1 ea 02 XX Last administered on 12/02/16 01: 16; Admin Dose 1 EA; Start 11/27/16 at 02:00 Heparin Sodium (Porcine) (Heparin (5000 Units/0.5 ml)) 5,000 unit BID SC Last administered on 12/02/16 08:47; Admin Dose 5,000 UNIT; Start 11/30/16 at 21:00 Famotidine (Pepcid) 20 mg BID PO Last administered on 12/02/16 08:54; Admin Dose 20 MG; Start 11/30/16 at 21:00 Ferrous Sulfate (Ferrous Sulfate (Ec)) 325 mg BID PO Last administered on 08:53; Admin Dose 325 MG; Start 12/01/16 at 21:00 Nifedipine (Procardia Xl) 30 mg HS PO Last administered on 12/01/16 20:14; Admin Dose 30 MG; Start 12/01/16 at 21:00 Methylprednisolone Sodium Succinate (Solu-Medrol) 40 mg BID@08,20 IV ; Start at 20:00 Insulin Human NPH (Humulin N) 10 unit BID@08,20 SC ; Start 12/02/16 at 20:00 Insulin Glargine (Lantus) 33 unit QHS SC ; Start 12/02/16 at 21:00 Assessment/Plan Chief Complaint/Hosp Course Assessment 1. Hypoxemic respiratory failure combination of heart failure and COPD exacerbation chest x-ray also demonstrates pleural effusion. 2. Congestive cardiac failure with pleural effusions pleural fluid was not sent for studies. 3. Morbid obesity 4. Diabetes mellitus Plan 1. Continue current antibiotics. 2. Continue current glycemic management 3. Diuretics 4. Echocardiogram cardiology recommendations 5. DVT GI prophylaxis 6. Ambulate record oxygen saturations. 7. Trial of steroids for bronchospasm 8. Agree with thoracentesis Continue telemetry care. Problems: KEYSHA FONSECA MD, [facility] Dec 02, 2016 15:04
--- NOTE | 2016-12-02 17:08 | RADRPT ---
PROCEDURE: US guided right thoracentesis. CLINICAL INDICATION: Shortness of breath. Right pleural effusion. TECHNIQUE: Prior to the procedure, informed consent was obtained. The risks, benefits, and alternatives were e xplained to the patient or the patient's family, including but not limited to bleeding, infection, p ain, visceral or vascular damage, shock, pneumothorax, chest tube placement, air embolism, and . The patient or the patient's family understood the risks and the alternatives and wished to proce ed with the study. Informed written consent was obtained. A procedural pause was performed. The patient's name, date of , and procedure to be performed were verified. Ultrasound of the right hemithorax was performed in the axial and sagittal planes. A right pleural e ffusion is noted. Utilizing ultrasound guidance, optimal location for entry to the pleural cavity wa s ascertained. The overlying skin was prepped and draped in the usual sterile fashion. Approximate ly 10 ml of 1% Xylocaine was injected locally for pain control. Using ultrasound guidance, a 5-Fren Yueh catheter was introduced into the right pleural space without difficulty. Fluid was aspirated . COMPARISON: 11/28/2016. FINDINGS: Initial ultrasound demonstrates fluid in the right pleural space. Approximately 0.950 liters of ser ous fluid was aspirated and sent to the laboratory. IMPRESSION: 1. Satisfactory ultrasound-guided right thoracentesis. RPTAT: QQ .Kayden Cervantes MD, MD Date Time Electronically viewed and signed by .Kayden Cervantes MD, on 12/02/2016 17:08 .R/
--- NOTE | 2016-12-02 17:41 | RADRPT ---
PROCEDURE: XR Chest. CLINICAL INDICATION: Shortness of breath. Post right thoracentesis. TECHNIQUE: Single frontal view. COMPARISON: 12/02/2016. FINDINGS: Previously noted right pleural effusion is now smaller. There is mild right basilar atelectasis, im proved. The lungs are otherwise clear. The heart is enlarged. There is calcification in the aorta consistent with atherosclerosis. There is no pleural effusion. There is no pneumothorax. IMPRESSION: 1. Small right pleural effusion and improved appearance of the right lung. 2. Cardiomegaly and atherosclerosis. 3. No pneumothorax following right thoracentesis. RPTAT: QQ .Kayden Cervantes MD, MD Date Time Electronically viewed and signed by .Kayden Cervantes MD, MD on 12/02/2016 17:41 .R/
[2016-12-02] MEDS: CEFTRIAXONE 1 GM/50 ML (PMX) 50 ML IVPB SCH (17:55)
[2016-12-02] MEDS ORDERED: LIDOCAINE 1% (MPF) 5 ML VIAL ONE (18:03)
[2016-12-02] MEDS: AZITHROMYCIN 500MG/NS (PMX) 250 ML IVPB SCH (18:26)
[2016-12-02] MEDS: FUROSEMIDE 20 MG INJ IV SCH (18:26)
[2016-12-02 18:43] LABS: FLD RBC 1 /uL; FLD WBC 201 /cmm
[2016-12-02 18:55] LABS: FLD CLARITY HAZY; FLD COLOR YELLOW; FLD TYPE THORACENTHESIS
[2016-12-02 19:13] LABS: FLUID GLUCOSE 338 mg/dl; FLUID TOTAL PROTEIN 3.7 g/dl; FLUID TYPE THORACENTESIS FLUID
[2016-12-02] MEDS: NPH, HUMAN INSULIN ISOPHANE 3ML VIAL SC SCH (20:47)
[2016-12-02] MEDS: NIFEdipine (XL) 30 MG TAB PO SCH (20:48)
[2016-12-02 20:52] LABS: PROTEIN/CREAT RATIO 0.2 RATIO
[2016-12-02] MEDS ORDERED: INSULIN GLARGINE [LANtus] 3 ML PEN SC SCH (21:00)
[2016-12-03] VITALS (12 sets, daily range): BP systolic 119–150; BP diastolic 60–70; PULSE 75–87; RESP 18–20
[2016-12-03] MEDS: ACCU-CHEK XX SCH ×2 (02:00)
[2016-12-03] MEDS: FUROSEMIDE 20 MG INJ IV SCH ×2 (06:24→17:07)
[2016-12-03 08:01] LABS: WHITE BLOOD COUNT 15.8 10^3/ul (4.8-10.8)
[2016-12-03 08:02] LABS: BASOPHILS % 0.1 % (0.0-2.0); HEMOGLOBIN 11.8 g/dl (14.0-18.0); LYMPHOCYTES % 6.5 % (15.0-51.0); MEAN CORPUSCULAR HEMOGLOBIN 27.3 pg (29.0-33.0); MEAN CORPUSCULAR HGB CONC 31.1 g/dl (32.0-37.0); MEAN CORPUSCULAR VOLUME 87.8 fl (82.0-101.0); MEAN PLATELET VOLUME 10.7 fl (7.4-10.4); MONOCYTE # 0.4 10^3/ul (0.3-0.9); MONOCYTES % 2.5 % (0.0-11.0); NEUTROPHIL # 14.3 10^3/ul (1.6-7.5); NEUTROPHILS % 90.3 % (39.0-77.0); PLATELET COUNT 304 10^3/UL (140-415); RED BLOOD COUNT 4.33 10^6/ul (4.70-6.10); RED CELL DISTRIBUTION WIDTH 13.8 % (11.5-14.5)
[2016-12-03] MEDS: FAMOTIDINE 20 MG TAB PO SCH ×2 (08:13→20:59)
[2016-12-03] MEDS: FERROUS SULFATE (EC) 325 MG TAB PO SCH ×2 (08:13→20:59)
[2016-12-03] MEDS: ASPIRIN 81 MG TAB PO SCH (08:13)
[2016-12-03] MEDS: GABAPENTIN 300 MG CAP PO SCH ×3 (08:13→21:00)
[2016-12-03] MEDS: NIFEdipine (XL) 60 MG TAB PO SCH (08:14)
[2016-12-03] MEDS: METOPROLOL (XL) 25 MG TAB PO SCH ×2 (08:15→21:00)
[2016-12-03] MEDS: SALMETEROL/FLUTICASONE 250/50 INHA INH SCH ×2 (08:16→21:01)
[2016-12-03] MEDS: METHYLPREDNISOLONE 40 MG INJ IV SCH ×2 (08:16→21:07)
[2016-12-03] MEDS: NPH, HUMAN INSULIN ISOPHANE 3ML VIAL SC SCH ×2 (08:20→21:13)
[2016-12-03 08:21] LABS: CALCIUM 9.9 mg/dl (8.4-10.2); CREATININE 1.44 mg/dl (0.61-1.24); POTASSIUM 4.6 mmol/L (3.5-5.1); URIC ACID 10.3 mg/dl (3.1-7.9)
[2016-12-03] MEDS: INSULIN ASPART [NOVOLOG] 3 ML PEN SC SCH ×7 (08:22→21:11)
[2016-12-03] MEDS: HEPARIN 5,000 UNIT/0.5 ML VIAL SC SCH ×2 (08:26→21:11)
[2016-12-03 08:36] LABS: MAGNESIUM 1.7 mg/dl (1.7-2.5); PHOSPHORUS 4.3 mg/dl (2.5-4.9)
[2016-12-03] MEDS ORDERED: NPH, HUMAN INSULIN ISOPHANE 3ML VIAL SC ONE (10:00)
--- NOTE | 2016-12-03 11:05 | CONS ---
Date/Time of Note Date/Time of Note DATE: 12/03/16 TIME: 11:04 Consult Date/Type/Reason Admit Date/Time Nov 26, 2016 at 08:55 Initial Consult Date 11/28/16 Type of Consultation: Pulmonary Ordering Provider: JERMAINE TEJADA Subjective Relatively comfortable this morning no significant shortness of breath. Still requiring supplemental O2. Objective Vital Signs Date Time Temp Pulse Resp B/P Pulse Ox O2 Delivery O2 Flow Rate FiO2 12/03/16 08:18 83 12/03/16 08:10 98.3 19 150/69 94 12/03/16 01:52 4.0 12/02/16 23:34 Nasal Cannula 12/02/16 18:00 36 Intake and Output 12/02/16 12/02/16 12/03/16 15:00 23:00 07:00 Intake Total 500 ml 1400 ml 800 ml Output Total 1700 ml 2000 ml Balance 500 ml -300 ml -1200 ml Exam GENERAL well-nourished well-developed Romansh gentleman VITAL SIGNS: per chart NECK: Supple. No JVD or lymphadenopathy. CARDIAC EXAM: S1, S2. No added sounds or murmurs. CHEST: diminished air entry both bases ABDOMEN: Soft, nontender. No guarding or rebound. EXTREMITIES: No cyanosis, clubbing or edema. NEUROLOGIC: Generalized weakness. No focal deficits. Results/Medications Result Diagram: 12/03/1671612/03/16716 Results 24 hrs Laboratory Tests Test 12/02/16 12:10 12/02/16 17:16 12/02/16 17:40 12/02/16 18:00 Bedside Glucose 349 H 312 H Body Fluid Type THORACENTESIS FLUID Body Fluid Volume 950.0 Body Fluid Color YELLOW Body Fluid Appearance HAZY Body Fluid WBC 201 Body Fluid RBC (Auto) 1 Body Fluid Polynuclear WBCs (%) 4.0 Body Fluid Mononuclear Cells % Auto 96.0 Body Fluid Glucose 338 Body Fluid Total Protein 3.7 Body Fluid Lactate Dehydrogenase Urine Eosinophils % 0.0 Urine Random Creatinine 57.93 Urine Random Sodium 69 Urine Protein/Creatinine Ratio 0.20 Urine Total Protein 12.0 H Test 12/02/16 20:43 12/03/16 02:02 12/03/16 07:17 12/03/16 08:09 Bedside Glucose 243 H 250 H 477 *H White Blood Count 15.8 #H Red Blood Count 4.33 L Hemoglobin 11.8 L Hematocrit 38.0 L Mean Corpuscular Volume 87.8 Mean Corpuscular Hemoglobin 27.3 L Mean Corpuscular Hemoglobin Concent 31.1 L Red Cell Distribution Width 13.8 Platelet Count 304 Mean Platelet Volume 10.7 H Neutrophils % 90.3 H Lymphocytes % 6.5 L Monocytes % 2.5 Eosinophils % 0.0 Basophils % 0.1 Nucleated Red Blood Cells % 0.0 Neutrophils # 14.3 H Lymphocytes # 1.0 Monocytes # 0.4 Eosinophils # 0.0 Basophils # 0.0 Nucleated Red Blood Cells # 0.0 Sodium Level 142 Potassium Level 4.6 Chloride Level 87 L Carbon Dioxide Level 38 H Anion Gap 22 H Blood Urea Nitrogen 76 H Creatinine 1.44 H Glucose Level 468 *H Uric Acid 10.3 H Calcium Level 9.9 Phosphorus Level 4.3 Magnesium Level 1.7 Creatine Kinase 30 Medications Current Medications Ondansetron HCl (Zofran Inj) 4 mg Q6H PRN IV NAUSEA AND/OR VOMITING; Start at 12:30 Acetaminophen (Tylenol Tab) 650 mg Q6H PRN PO PAIN LEVEL 1-3 OR FEVER Last administered on 11/29/16 19:32; Admin Dose 650 MG; Start 11/26/16 at 12:30 Acetaminophen/ Hydrocodone Bitart ([place] (5/325)) 1 tab Q6H PRN PO MODERATE PAIN LEVEL 4-6; Start 11/26/16 at 12:30 Morphine Sulfate (morphine) 2 mg Q4H PRN IV SEVERE PAIN LEVEL 7-10; Start 11/26 at 12:30 Docusate Sodium (Colace) 100 mg Q12H PRN PO CONSTIPATION Last administered on 01:55; Admin Dose 100 MG; Start 11/26/16 at 12:30 Zolpidem Tartrate (Ambien) 5 mg QHS PRN PO SLEEP; Start 11/26/16 at 12:30 Aspirin (Aspirin) 81 mg DAILY PO Last administered on 12/03/16 08:13; Admin Dose 81 MG; Start 11/27/16 at 09:00 Gabapentin (Neurontin) 300 mg TID PO Last administered on 12/03/16 08:13; Admin Dose 300 MG; Start 11/26/16 at 13:00 Lisinopril (Zestril) 40 mg DAILY PO Last administered on 12/02/16 08:57; Admin Dose 40 MG; Start 11/26/16 at 12:30; Status Future Hold Metoprolol Succinate (Toprol Xl) 25 mg BID PO Last administered on 12/03/16 08 :15; Admin Dose 25 MG; Start 11/26/16 at 12:30 Nifedipine (Procardia Xl) 60 mg DAILY PO Last administered on 12/03/16 08:14; Admin Dose 60 MG; Start 11/26/16 at 12:30 Salmeterol Xinafoate/ Fluticasone (Advair 250/50 Diskus) 1 inh BID INH Last administered on 12/03/16 08:16; Admin Dose 1 INH; Start 11/26/16 at 21:00 Hydralazine HCl (Apresoline) 10 mg Q4H PRN IV SBP>170 Last administered on 11/28 04:05; Admin Dose 10 MG; Start 11/26/16 at 12:30 Miscellaneous Information 1 ea NOTE XX ; Start 11/26/16 at 12:30 Glucose (Glutose) 15 gm Q15M PRN PO DECREASED GLUCOSE; Start 11/26/16 at 12:30 Glucose (Glutose) 22.5 gm Q15M PRN PO DECREASED GLUCOSE; Start 11/26/16 at 12: 30 Dextrose (D50w Syringe) 25 ml Q15M PRN IV DECREASED GLUCOSE; Start 11/26/16 at 12:30 Dextrose (D50w Syringe) 50 ml Q15M PRN IV DECREASED GLUCOSE; Start 11/26/16 at 12:30 Glucagon (Glucagen) 1 mg Q15M PRN IM DECREASED GLUCOSE; Start 11/26/16 at 12:30 Glucose 15 gm 15 gm Q15M PRN BUCCAL DECREASED GLUCOSE; Start 11/26/16 at 12:30 Ceftriaxone Sodium 50 ml @ 100 mls/hr Q24H IVPB Last administered on 17:55; Admin Dose 100 MLS/HR; Start 11/26/16 at 17:00 Azithromycin (Zithromax 500mg/ NS (Pmx)) 250 ml @ 250 mls/hr Q24H IVPB Last administered on 12/02/16 18:26; Admin Dose 250 MLS/HR; Start 11/26/16 at 18:00 Diagnostic Test (Pha) (Accu-Chek) 1 ea 02 XX Last administered on 12/02/16 01: 16; Admin Dose 1 EA; Start 11/27/16 at 02:00 Diagnostic Test (Pha) (Accu-Chek) 1 ea 02 XX Last administered on 12/02/16 01: 16; Admin Dose 1 EA; Start 11/27/16 at 02:00 Heparin Sodium (Porcine) (Heparin (5000 Units/0.5 ml)) 5,000 unit BID SC Last administered on 12/03/16 08:26; Admin Dose 5,000 UNIT; Start 11/30/16 at 21:00 Famotidine (Pepcid) 20 mg BID PO Last administered on 12/03/16 08:13; Admin Dose 20 MG; Start 11/30/16 at 21:00 Ferrous Sulfate (Ferrous Sulfate (Ec)) 325 mg BID PO Last administered on 08:13; Admin Dose 325 MG; Start 12/01/16 at 21:00 Nifedipine (Procardia Xl) 30 mg HS PO Last administered on 12/02/16 20:48; Admin Dose 30 MG; Start 12/01/16 at 21:00 Methylprednisolone Sodium Succinate (Solu-Medrol) 40 mg BID@08,20 IV Last administered on 12/03/16 08:16; Admin Dose 40 MG; Start 12/02/16 at 20:00 Insulin Human NPH (Humulin N) 10 unit BID@08,20 SC Last administered on 08:20; Admin Dose 10 UNIT; Start 12/02/16 at 20:00 Insulin Glargine (Lantus) 33 unit QHS SC Last administered on 12/02/16 20:56; Admin Dose 33 UNIT; Start 12/02/16 at 21:00 Assessment/Plan Chief Complaint/Hosp Course Assessment 1. Hypoxemic respiratory failure combination of heart failure and COPD exacerbation chest x-ray also demonstrates pleural effusion. 2. Congestive cardiac failure with pleural effusions pleural fluid was not sent for studies. 3. Morbid obesity 4. Diabetes mellitus Plan 1. Continue current antibiotics. 2. Continue current glycemic management 3. Diuretics 4. Echocardiogram cardiology recommendations 5. DVT GI prophylaxis 6. Ambulate record oxygen saturations. 7. Trial of steroids for bronchospasm 8. Thoracentesis right lung. Continue telemetry care. Problems: KEYSHA FONSECA MD, [facility] Dec 03, 2016 11:05
--- NOTE | 2016-12-03 11:34 | PN ---
Date/Time of Note Date/Time of Note DATE: 12/03/16 TIME: 11:32 Assessment/Plan VTE Prophylaxis VTE Prophylaxis Intervention: heparin Lines/Catheters IV [facility] Saline Lock Urinary Cath still in place: No Assessment/Plan Chief Complaint/Hosp Course 1. Acute respiratory failure. Hypoxic. Secondary to COPD exacerbation and possibly a component of diastolic heart failure. Continue inhaled bronchodilators. The patient being followed by pulmonology. 2. Type 2 diabetes mellitus. Hemoglobin A1c 8.2. Blood sugars uncontrolled because of underlying steroid use. Will adjust insulin dosing to obtain optimal blood sugar control. 3. Recurrent right-sided pleural effusion. Status post thoracentesis on 2016 with the drainage is 1.7 L of serous fluid. Repeat thoracentesis done on . Being followed by pulmonary. 4. Anemia. Normocytic and hypochromic. Etiology unclear. Will monitor H&H closely. Iron panel showing low iron and low iron saturation. Continue the patient on iron supplements. 5. Essential hypertension. Continue antihypertensives. 6. Acute kidney injury. Etiology unclear. Probably from overdiuresis versus others. Nephrology following. 7. Fluids, electrolytes, and nutrition. Carbohydrate controlled diet. 8. DVT prophylaxis with subcutaneous heparin. 9. Gastrointestinal prophylaxis. Histamine 2 receptor blockers. 10. Plan. Continue inhaled bronchodilators. Adjust insulin dosing to obtain optimal blood sugar control. Case discussed with Dr. Gilmore. Problems: Subjective 24 Hr Interval Summary Free Text/Dictation Patient's blood sugars have been running high. Exam/Review of Systems Vital Signs Vitals Vital Signs Date Time Temp Pulse Resp B/P Pulse Ox O2 Delivery O2 Flow Rate FiO2 12/03/16 11:20 98.2 90 19 120/63 97 12/03/16 01:52 4.0 12/02/16 23:34 Nasal Cannula 12/02/16 18:00 36 Intake and Output 12/02/16 12/02/16 12/03/16 15:00 23:00 07:00 Intake Total 500 ml 1400 ml 800 ml Output Total 1700 ml 2000 ml Balance 500 ml -300 ml -1200 ml Exam General: Obese 61 year-old male lying in bed in no apparent distress. HEENT: Normocephalic, atraumatic. Eyes: Anicteric sclerae, conjunctivae clear. ENT: Nasal septum midline, oral mucosa moist. Neck supple, no JVD noticed. Respiratory: Bilaterally diminished breath sounds. No use of accessory muscles of respiration. Scattered rhonchi. Cardiovascular: S1, S2 heard. No murmurs or gallops. Abdomen: Soft, nontender, and nondistended. Bowel sounds positive in all 4 quadrants. Genitourinary: Deferred. Extremities: No cyanosis, no clubbing, trace B/L pedal edema. Peripheral pulses palpable. Neurologic: Cranial nerves II through XII grossly intact. The patient is awake, alert, and oriented. Skin: Normal skin turgor. No skin rashes. Results Result Diagram: 12/03/16 0712/03/16 07 Results 24 hrs Laboratory Tests Test 12/02/16 12:10 12/02/16 17:16 12/02/16 17:40 12/02/16 18:00 Bedside Glucose 349 H 312 H Body Fluid Type THORACENTESIS FLUID Body Fluid Volume 950.0 Body Fluid Color YELLOW Body Fluid Appearance HAZY Body Fluid WBC 201 Body Fluid RBC (Auto) 1 Body Fluid Polynuclear WBCs (%) 4.0 Body Fluid Mononuclear Cells % Auto 96.0 Body Fluid Glucose 338 Body Fluid Total Protein 3.7 Body Fluid Lactate Dehydrogenase Urine Eosinophils % 0.0 Urine Random Creatinine 57.93 Urine Random Sodium 69 Urine Protein/Creatinine Ratio 0.20 Urine Total Protein 12.0 H Test 12/02/16 20:43 12/03/16 02:02 12/03/16 07:17 12/03/16 08:09 Bedside Glucose 243 H 250 H 477 *H White Blood Count 15.8 #H Red Blood Count 4.33 L Hemoglobin 11.8 L Hematocrit 38.0 L Mean Corpuscular Volume 87.8 Mean Corpuscular Hemoglobin 27.3 L Mean Corpuscular Hemoglobin Concent 31.1 L Red Cell Distribution Width 13.8 Platelet Count 304 Mean Platelet Volume 10.7 H Neutrophils % 90.3 H Lymphocytes % 6.5 L Monocytes % 2.5 Eosinophils % 0.0 Basophils % 0.1 Nucleated Red Blood Cells % 0.0 Neutrophils # 14.3 H Lymphocytes # 1.0 Monocytes # 0.4 Eosinophils # 0.0 Basophils # 0.0 Nucleated Red Blood Cells # 0.0 Sodium Level 142 Potassium Level 4.6 Chloride Level 87 L Carbon Dioxide Level 38 H Anion Gap 22 H Blood Urea Nitrogen 76 H Creatinine 1.44 H Glucose Level 468 *H Uric Acid 10.3 H Calcium Level 9.9 Phosphorus Level 4.3 Magnesium Level 1.7 Creatine Kinase 30 Test 12/03/16 11:19 Bedside Glucose 295 H Medications Medications Current Medications Ondansetron HCl (Zofran Inj) 4 mg Q6H PRN IV NAUSEA AND/OR VOMITING; Start at 12:30 Acetaminophen (Tylenol Tab) 650 mg Q6H PRN PO PAIN LEVEL 1-3 OR FEVER Last administered on 11/29/16 19:32; Admin Dose 650 MG; Start 11/26/16 at 12:30 Acetaminophen/ Hydrocodone Bitart ([place] (5/325)) 1 tab Q6H PRN PO MODERATE PAIN LEVEL 4-6; Start 11/26/16 at 12:30 Morphine Sulfate (morphine) 2 mg Q4H PRN IV SEVERE PAIN LEVEL 7-10; Start 11/26 at 12:30 Docusate Sodium (Colace) 100 mg Q12H PRN PO CONSTIPATION Last administered on 01:55; Admin Dose 100 MG; Start 11/26/16 at 12:30 Zolpidem Tartrate (Ambien) 5 mg QHS PRN PO SLEEP; Start 11/26/16 at 12:30 Aspirin (Aspirin) 81 mg DAILY PO Last administered on 12/03/16 08:13; Admin Dose 81 MG; Start 11/27/16 at 09:00 Gabapentin (Neurontin) 300 mg TID PO Last administered on 12/03/16 08:13; Admin Dose 300 MG; Start 11/26/16 at 13:00 Lisinopril (Zestril) 40 mg DAILY PO Last administered on 12/02/16 08:57; Admin Dose 40 MG; Start 11/26/16 at 12:30; Status Future Hold Metoprolol Succinate (Toprol Xl) 25 mg BID PO Last administered on 12/03/16 08 :15; Admin Dose 25 MG; Start 11/26/16 at 12:30 Nifedipine (Procardia Xl) 60 mg DAILY PO Last administered on 12/03/16 08:14; Admin Dose 60 MG; Start 11/26/16 at 12:30 Salmeterol Xinafoate/ Fluticasone (Advair 250/50 Diskus) 1 inh BID INH Last administered on 12/03/16 08:16; Admin Dose 1 INH; Start 11/26/16 at 21:00 Hydralazine HCl (Apresoline) 10 mg Q4H PRN IV SBP>170 Last administered on 11/28 04:05; Admin Dose 10 MG; Start 11/26/16 at 12:30 Miscellaneous Information 1 ea NOTE XX ; Start 11/26/16 at 12:30 Glucose (Glutose) 15 gm Q15M PRN PO DECREASED GLUCOSE; Start 11/26/16 at 12:30 Glucose (Glutose) 22.5 gm Q15M PRN PO DECREASED GLUCOSE; Start 11/26/16 at 12: 30 Dextrose (D50w Syringe) 25 ml Q15M PRN IV DECREASED GLUCOSE; Start 11/26/16 at 12:30 Dextrose (D50w Syringe) 50 ml Q15M PRN IV DECREASED GLUCOSE; Start 11/26/16 at 12:30 Glucagon (Glucagen) 1 mg Q15M PRN IM DECREASED GLUCOSE; Start 11/26/16 at 12:30 Glucose 15 gm 15 gm Q15M PRN BUCCAL DECREASED GLUCOSE; Start 11/26/16 at 12:30 Ceftriaxone Sodium 50 ml @ 100 mls/hr Q24H IVPB Last administered on 17:55; Admin Dose 100 MLS/HR; Start 11/26/16 at 17:00 Azithromycin (Zithromax 500mg/ NS (Pmx)) 250 ml @ 250 mls/hr Q24H IVPB Last administered on 12/02/16 18:26; Admin Dose 250 MLS/HR; Start 11/26/16 at 18:00 Diagnostic Test (Pha) (Accu-Chek) 1 ea 02 XX Last administered on 12/02/16 01: 16; Admin Dose 1 EA; Start 11/27/16 at 02:00 Diagnostic Test (Pha) (Accu-Chek) 1 ea 02 XX Last administered on 12/02/16 01: 16; Admin Dose 1 EA; Start 11/27/16 at 02:00 Heparin Sodium (Porcine) (Heparin (5000 Units/0.5 ml)) 5,000 unit BID SC Last administered on 12/03/16 08:26; Admin Dose 5,000 UNIT; Start 11/30/16 at 21:00 Famotidine (Pepcid) 20 mg BID PO Last administered on 12/03/16 08:13; Admin Dose 20 MG; Start 11/30/16 at 21:00 Ferrous Sulfate (Ferrous Sulfate (Ec)) 325 mg BID PO Last administered on 08:13; Admin Dose 325 MG; Start 12/01/16 at 21:00 Nifedipine (Procardia Xl) 30 mg HS PO Last administered on 12/02/16 20:48; Admin Dose 30 MG; Start 12/01/16 at 21:00 Methylprednisolone Sodium Succinate (Solu-Medrol) 40 mg BID@08,20 IV Last administered on 12/03/16 08:16; Admin Dose 40 MG; Start 12/02/16 at 20:00 Insulin Glargine (Lantus) 36 unit QHS SC ; Start 12/03/16 at 21:00; Status UNV Insulin Human NPH (Humulin N) 14 unit BID@08,20 SC ; Start 12/03/16 at 20:00; Status UNV NILES AYALA NP Dec 03, 2016 11:34
--- NOTE | 2016-12-03 13:38 | CONS ---
Date/Time of Note Date/Time of Note DATE: 12/03/16 TIME: 13:37 Assessment/Plan Assessment/Plan Chief Complaint/Hosp Course IMP: 1.CHF-diastolic chronic- Echo 12/01 EF 55-60/DD/MR/TR 2.HTN 3.PLeural effusion- R sided s/p thoracentesis 12/02 4.HTN 5.DM 6.Anemia 7. Renal failure 8. Copd Rec: -Tele -serial ecg's -Follow renal function closely on gentle lasix diuresis -consider thoracentesis -Continue asa -Continue procardia XL/Topol XL Problems: Consultation Date/Type/Reason Admit Date/Time Nov 26, 2016 at 08:55 Initial Consult Date 11/28/16 Type of Consultation: cardiology Reason for Consultation pleural effusion Referring Provider: JERMAINE TEJADA Exam/Review of Systems Vital Signs Vitals Vital Signs Date Time Temp Pulse Resp B/P Pulse Ox O2 Delivery O2 Flow Rate FiO2 12/03/16 12:10 86 12/03/16 11:20 98.2 19 120/63 97 12/03/16 01:52 4.0 12/02/16 23:34 Nasal Cannula 12/02/16 18:00 36 Intake and Output 12/02/16 12/02/16 12/03/16 15:00 23:00 07:00 Intake Total 500 ml 1400 ml 800 ml Output Total 1700 ml 2000 ml Balance 500 ml -300 ml -1200 ml Exam Review of Systems: CONSTITUTIONAL: No fevers, chills. PULMONARY: No sob CARDIOVASCULAR: No chest pain/palpitations GASTROINTESTINAL: No nausea/vomiting. GENITOURINARY: No hematuria/dysuria. MUSCULOSKELETAL: No myagias/arthalgias. PSYCHIATRIC: The patient denies depression. NEUROLOGIC: No weakness Constitutional: other (sleeping) Psych: no complaints Head: normocephalic ENMT: mucosa pink and moist Neck: jvd (9 cm water), supple Respiratory: diminished breath sounds (R>L base) Cardiovascular: regular rate and rhythm Gastrointestinal: non-tender Musculoskeletal: muscle tone (normal) Extremities: edema (none) Neurological: other (No focal deficits) Results Result Diagram: 12/03/16 0717 12/03/16 0717 Results 24 hrs Laboratory Tests Test 12/02/16 17:16 12/02/16 17:40 12/02/16 18:00 12/02/16 20:43 Body Fluid Type THORACENTESIS FLUID Body Fluid Volume 950.0 Body Fluid Color YELLOW Body Fluid Appearance HAZY Body Fluid WBC 201 Body Fluid RBC (Auto) 1 Body Fluid Polynuclear WBCs (%) 4.0 Body Fluid Mononuclear Cells % Auto 96.0 Body Fluid Glucose 338 Body Fluid Total Protein 3.7 Body Fluid Lactate Dehydrogenase Bedside Glucose 312 H 243 H Urine Eosinophils % 0.0 Urine Random Creatinine 57.93 Urine Random Sodium 69 Urine Protein/Creatinine Ratio 0.20 Urine Total Protein 12.0 H Test 12/03/16 02:02 12/03/16 07:17 12/03/16 08:09 12/03/16 11:19 Bedside Glucose 250 H 477 *H 295 H White Blood Count 15.8 #H Red Blood Count 4.33 L Hemoglobin 11.8 L Hematocrit 38.0 L Mean Corpuscular Volume 87.8 Mean Corpuscular Hemoglobin 27.3 L Mean Corpuscular Hemoglobin Concent 31.1 L Red Cell Distribution Width 13.8 Platelet Count 304 Mean Platelet Volume 10.7 H Neutrophils % 90.3 H Lymphocytes % 6.5 L Monocytes % 2.5 Eosinophils % 0.0 Basophils % 0.1 Nucleated Red Blood Cells % 0.0 Neutrophils # 14.3 H Lymphocytes # 1.0 Monocytes # 0.4 Eosinophils # 0.0 Basophils # 0.0 Nucleated Red Blood Cells # 0.0 Sodium Level 142 Potassium Level 4.6 Chloride Level 87 L Carbon Dioxide Level 38 H Anion Gap 22 H Blood Urea Nitrogen 76 H Creatinine 1.44 H Glucose Level 468 *H Uric Acid 10.3 H Calcium Level 9.9 Phosphorus Level 4.3 Magnesium Level 1.7 Creatine Kinase 30 Medications Medications Current Medications Ondansetron HCl (Zofran Inj) 4 mg Q6H PRN IV NAUSEA AND/OR VOMITING; Start at 12:30 Acetaminophen (Tylenol Tab) 650 mg Q6H PRN PO PAIN LEVEL 1-3 OR FEVER Last administered on 11/29/16t 19:32; Admin Dose 650 MG; Start 11/26/16 at 12:30 Acetaminophen/ Hydrocodone Bitart ([place] (5/325)) 1 tab Q6H PRN PO MODERATE PAIN LEVEL 4-6; Start 11/26/16 at 12:30 Morphine Sulfate (morphine) 2 mg Q4H PRN IV SEVERE PAIN LEVEL 7-10; Start 11/26 at 12:30 Docusate Sodium (Colace) 100 mg Q12H PRN PO CONSTIPATION Last administered on 01:55; Admin Dose 100 MG; Start 11/26/16 at 12:30 Zolpidem Tartrate (Ambien) 5 mg QHS PRN PO SLEEP; Start 11/26/16 at 12:30 Aspirin (Aspirin) 81 mg DAILY PO Last administered on 12/03/16 08:13; Admin Dose 81 MG; Start 11/27/16 at 09:00 Gabapentin (Neurontin) 300 mg TID PO Last administered on 12/03/16 12:20; Admin Dose 300 MG; Start 11/26/16 at 13:00 Lisinopril (Zestril) 40 mg DAILY PO Last administered on 12/02/16 08:57; Admin Dose 40 MG; Start 11/26/16 at 12:30; Status Future Hold Metoprolol Succinate (Toprol Xl) 25 mg BID PO Last administered on 12/03/16 08 :15; Admin Dose 25 MG; Start 11/26/16 at 12:30 Nifedipine (Procardia Xl) 60 mg DAILY PO Last administered on 12/03/16 08:14; Admin Dose 60 MG; Start 11/26/16 at 12:30 Salmeterol Xinafoate/ Fluticasone (Advair 250/50 Diskus) 1 inh BID INH Last administered on 12/03/16 08:16; Admin Dose 1 INH; Start 11/26/16 at 21:00 Hydralazine HCl (Apresoline) 10 mg Q4H PRN IV SBP>170 Last administered on 11/28 04:05; Admin Dose 10 MG; Start 11/26/16 at 12:30 Miscellaneous Information 1 ea NOTE XX ; Start 11/26/16 at 12:30 Glucose (Glutose) 15 gm Q15M PRN PO DECREASED GLUCOSE; Start 11/26/16 at 12:30 Glucose (Glutose) 22.5 gm Q15M PRN PO DECREASED GLUCOSE; Start 11/26/16 at 12: 30 Dextrose (D50w Syringe) 25 ml Q15M PRN IV DECREASED GLUCOSE; Start 11/26/16 at 12:30 Dextrose (D50w Syringe) 50 ml Q15M PRN IV DECREASED GLUCOSE; Start 11/26/16 at 12:30 Glucagon (Glucagen) 1 mg Q15M PRN IM DECREASED GLUCOSE; Start 11/26/16 at 12:30 Glucose 15 gm 15 gm Q15M PRN BUCCAL DECREASED GLUCOSE; Start 11/26/16 at 12:30 Ceftriaxone Sodium 50 ml @ 100 mls/hr Q24H IVPB Last administered on 17:55; Admin Dose 100 MLS/HR; Start 11/26/16 at 17:00 Azithromycin (Zithromax 500mg/ NS (Pmx)) 250 ml @ 250 mls/hr Q24H IVPB Last administered on 12/02/16 18:26; Admin Dose 250 MLS/HR; Start 11/26/16 at 18:00 Diagnostic Test (Pha) (Accu-Chek) 1 ea 02 XX Last administered on 12/02/16 01: 16; Admin Dose 1 EA; Start 11/27/16 at 02:00 Heparin Sodium (Porcine) (Heparin (5000 Units/0.5 ml)) 5,000 unit BID SC Last administered on 12/03/16 08:26; Admin Dose 5,000 UNIT; Start 11/30/16 at 21:00 Famotidine (Pepcid) 20 mg BID PO Last administered on 12/03/16 08:13; Admin Dose 20 MG; Start 11/30/16 at 21:00 Ferrous Sulfate (Ferrous Sulfate (Ec)) 325 mg BID PO Last administered on 08:13; Admin Dose 325 MG; Start 12/01/16 at 21:00 Nifedipine (Procardia Xl) 30 mg HS PO Last administered on 12/02/16 20:48; Admin Dose 30 MG; Start 12/01/16 at 21:00 Methylprednisolone Sodium Succinate (Solu-Medrol) 40 mg BID@08,20 IV Last administered on 12/03/16 08:16; Admin Dose 40 MG; Start 12/02/16 at 20:00 Insulin Glargine (Lantus) 36 unit QHS SC ; Start 12/03/16 at 21:00 Insulin Human NPH (Humulin N) 14 unit BID@08,20 SC ; Start 12/03/16 at 20:00 JOSÉ GARCIA 27, 2017 13:38
--- NOTE | 2016-12-03 16:40 | CONS ---
Date/Time of Note Date/Time of Note DATE: 12/03/16 TIME: 16:39 Assessment/Plan Assessment/Plan Additional Assessment/Plan 1. Acute kidney injury versus acute kidney injury on chronic kidney disease. This is like secondary to over diuresis with the Lasix and metolazone. 2. Possible chronic kidney disease secondary to a diabetic property. 3. Severe metabolic alkalosis with bicarbonate of 42, secondary to over diuresis. 4. Acute COPD exacerbation. 5. Possible diastolic heart failure with an echo short ejection fraction, 62 to 65, consistent with stage I diastolic dysfunction. 6. History of hyperlipidemia. 7. History of diabetes mellitus Plan: Cr 1.44, HCO3 38, stable, improving expecign creatinine to improve gentle diureisis, consider switching lasix to PO BP stable will follow up Consultation Date/Type/Reason Admit Date/Time Nov 26, 2016 at 08:55 Initial Consult Date 11/28/16 Type of Consultation: NEPHROLOGY Referring Provider: JERMAINE TJEADA 24 HR Interval Summary Free Text/Dictation S/p Thoracentesis 0.79 L removed, BP stable, Cr 1.44, HCo3 improving Exam/Review of Systems Vital Signs Vitals Vital Signs Date Time Temp Pulse Resp B/P Pulse Ox O2 Delivery O2 Flow Rate FiO2 12/03/16 15:48 98.6 80 18 135/60 94 12/03/16 08:15 Nasal Cannula 3.0 12/02/16 18:00 36 Intake and Output 12/02/16 12/02/16 12/03/16 15:00 23:00 07:00 Intake Total 500 ml 1400 ml 800 ml Output Total 1700 ml 2000 ml Balance 500 ml -300 ml -1200 ml Results Result Diagram: 12/03/16 0717 12/03/16 0717 Results 24 hrs Laboratory Tests Test 12/02/16 17:16 12/02/16 17:40 12/02/16 18:00 12/02/16 20:43 Body Fluid Type THORACENTESIS FLUID Body Fluid Volume 950.0 Body Fluid Color YELLOW Body Fluid Appearance HAZY Body Fluid WBC 201 Body Fluid RBC (Auto) 1 Body Fluid Polynuclear WBCs (%) 4.0 Body Fluid Mononuclear Cells % Auto 96.0 Body Fluid Glucose 338 Body Fluid Total Protein 3.7 Body Fluid Lactate Dehydrogenase Bedside Glucose 312 H 243 H Urine Eosinophils % 0.0 Urine Random Creatinine 57.93 Urine Random Sodium 69 Urine Protein/Creatinine Ratio 0.20 Urine Total Protein 12.0 H Test 12/03/16 02:02 12/03/16 07:17 12/03/16 08:09 12/03/16 11:19 Bedside Glucose 250 H 477 *H 295 H White Blood Count 15.8 #H Red Blood Count 4.33 L Hemoglobin 11.8 L Hematocrit 38.0 L Mean Corpuscular Volume 87.8 Mean Corpuscular Hemoglobin 27.3 L Mean Corpuscular Hemoglobin Concent 31.1 L Red Cell Distribution Width 13.8 Platelet Count 304 Mean Platelet Volume 10.7 H Neutrophils % 90.3 H Lymphocytes % 6.5 L Monocytes % 2.5 Eosinophils % 0.0 Basophils % 0.1 Nucleated Red Blood Cells % 0.0 Neutrophils # 14.3 H Lymphocytes # 1.0 Monocytes # 0.4 Eosinophils # 0.0 Basophils # 0.0 Nucleated Red Blood Cells # 0.0 Sodium Level 142 Potassium Level 4.6 Chloride Level 87 L Carbon Dioxide Level 38 H Anion Gap 22 H Blood Urea Nitrogen 76 H Creatinine 1.44 H Glucose Level 468 *H Uric Acid 10.3 H Calcium Level 9.9 Phosphorus Level 4.3 Magnesium Level 1.7 Creatine Kinase 30 Medications Medications Current Medications Ondansetron HCl (Zofran Inj) 4 mg Q6H PRN IV NAUSEA AND/OR VOMITING; Start at 12:30 Acetaminophen (Tylenol Tab) 650 mg Q6H PRN PO PAIN LEVEL 1-3 OR FEVER Last administered on 11/29/16 19:32; Admin Dose 650 MG; Start 11/26/16 at 12:30 Acetaminophen/ Hydrocodone Bitart ([place] (5/325)) 1 tab Q6H PRN PO MODERATE PAIN LEVEL 4-6; Start 11/26/16 at 12:30 Morphine Sulfate (morphine) 2 mg Q4H PRN IV SEVERE PAIN LEVEL 7-10; Start 11/26 at 12:30 Docusate Sodium (Colace) 100 mg Q12H PRN PO CONSTIPATION Last administered on 01:55; Admin Dose 100 MG; Start 11/26/16 at 12:30 Zolpidem Tartrate (Ambien) 5 mg QHS PRN PO SLEEP; Start 11/26/16 at 12:30 Aspirin (Aspirin) 81 mg DAILY PO Last administered on 12/03/16 08:13; Admin Dose 81 MG; Start 11/27/16 at 09:00 Gabapentin (Neurontin) 300 mg TID PO Last administered on 12/03/16 12:20; Admin Dose 300 MG; Start 11/26/16 at 13:00 Lisinopril (Zestril) 40 mg DAILY PO Last administered on 12/02/16 08:57; Admin Dose 40 MG; Start 11/26/16 at 12:30; Status Future Hold Metoprolol Succinate (Toprol Xl) 25 mg BID PO Last administered on 12/03/16 08 :15; Admin Dose 25 MG; Start 11/26/16 at 12:30 Nifedipine (Procardia Xl) 60 mg DAILY PO Last administered on 12/03/16 08:14; Admin Dose 60 MG; Start 11/26/16 at 12:30 Salmeterol Xinafoate/ Fluticasone (Advair 250/50 Diskus) 1 inh BID INH Last administered on 12/03/16 08:16; Admin Dose 1 INH; Start 11/26/16 at 21:00 Hydralazine HCl (Apresoline) 10 mg Q4H PRN IV SBP>170 Last administered on 11/28 04:05; Admin Dose 10 MG; Start 11/26/16 at 12:30 Miscellaneous Information 1 ea NOTE XX ; Start 11/26/16 at 12:30 Glucose (Glutose) 15 gm Q15M PRN PO DECREASED GLUCOSE; Start 11/26/16 at 12:30 Glucose (Glutose) 22.5 gm Q15M PRN PO DECREASED GLUCOSE; Start 11/26/16 at 12: 30 Dextrose (D50w Syringe) 25 ml Q15M PRN IV DECREASED GLUCOSE; Start 11/26/16 at 12:30 Dextrose (D50w Syringe) 50 ml Q15M PRN IV DECREASED GLUCOSE; Start 11/26/16 at 12:30 Glucagon (Glucagen) 1 mg Q15M PRN IM DECREASED GLUCOSE; Start 11/26/16 at 12:30 Glucose 15 gm 15 gm Q15M PRN BUCCAL DECREASED GLUCOSE; Start 11/26/16 at 12:30 Ceftriaxone Sodium 50 ml @ 100 mls/hr Q24H IVPB Last administered on 17:55; Admin Dose 100 MLS/HR; Start 11/26/16 at 17:00 Azithromycin (Zithromax 500mg/ NS (Pmx)) 250 ml @ 250 mls/hr Q24H IVPB Last administered on 12/02/16 18:26; Admin Dose 250 MLS/HR; Start 11/26/16 at 18:00 Diagnostic Test (Pha) (Accu-Chek) 1 ea 02 XX Last administered on 12/02/16 01: 16; Admin Dose 1 EA; Start 11/27/16 at 02:00 Heparin Sodium (Porcine) (Heparin (5000 Units/0.5 ml)) 5,000 unit BID SC Last administered on 12/03/16 08:26; Admin Dose 5,000 UNIT; Start 11/30/16 at 21:00 Famotidine (Pepcid) 20 mg BID PO Last administered on 12/03/16 08:13; Admin Dose 20 MG; Start 11/30/16 at 21:00 Ferrous Sulfate (Ferrous Sulfate (Ec)) 325 mg BID PO Last administered on 08:13; Admin Dose 325 MG; Start 12/01/16 at 21:00 Nifedipine (Procardia Xl) 30 mg HS PO Last administered on 12/02/16 20:48; Admin Dose 30 MG; Start 12/01/16 at 21:00 Methylprednisolone Sodium Succinate (Solu-Medrol) 40 mg BID@08,20 IV Last administered on 12/03/16 08:16; Admin Dose 40 MG; Start 12/02/16 at 20:00 Insulin Glargine (Lantus) 36 unit QHS SC ; Start 12/03/16 at 21:00 Insulin Human NPH (Humulin N) 14 unit BID@08,20 SC ; Start 12/03/16 at 20:00 BON GUERRERO MD Dec 03, 2016 16:40
[2016-12-03] MEDS: CEFTRIAXONE 1 GM/50 ML (PMX) 50 ML IVPB SCH (17:05)
[2016-12-03] MEDS: AZITHROMYCIN 500MG/NS (PMX) 250 ML IVPB SCH (18:19)
[2016-12-03] MEDS: NIFEdipine (XL) 30 MG TAB PO SCH (21:00)
[2016-12-03] MEDS: INSULIN GLARGINE [LANtus] 3 ML PEN SC SCH (21:11)
[2016-12-04] VITALS (12 sets, daily range): BP systolic 113–144; BP diastolic 60–74; PULSE 60–82; RESP 19–20
[2016-12-04] MEDS: ACETAMINOPHEN 325 MG TAB PO PRN (01:56)
[2016-12-04] MEDS: ACCU-CHEK XX SCH (02:00)
--- NOTE | 2016-12-04 04:15 | CONS ---
DATE OF ADMISSION: 11/26/2016 DATE OF CONSULTATION: 12/02/2016 REFERRING PHYSICIAN: Isaiah Mai MD TYPE OF CONSULTATION: Nephrology. REASON FOR CONSULTATION: Acute kidney injury versus acute kidney injury on chronic kidney disease, severe metabolic alkalosis, fluid overload. HISTORY OF PRESENT ILLNESS: This is a 61-year-old male who has a past medical history of COPD, diabetes mellitus, hypertension, history of previous pleural effusion secondary to diastolic congestive heart failure exacerbation. OBSERVATIONS: The patient got admitted on 11/26/2016 for acute COPD exacerbation. He has been followed up by pulmonary for COPD exacerbation. He has been started on Solu-Medrol IV for COPD exacerbation. He was also started on IV Lasix diuresis with the Lasix with metolazone. The patient has slowly, gradually improved, but he is noted to have a bump in his creatinine from the admission creatinine, which was 1.3 on admission, slowly bumped up to 1.34. His bicarbonate on the day of admission was 32, which is slowing trending up to 42 today and renal has been consulted for acute kidney injury versus acute kidney injury on chronic disease, with severe metabolic alkalosis. REVIEW OF SYSTEMS: Positive for shortness of breath, cough, lower extremity edema. All of the review of systems has been obtained and is negative, except for what is mentioned in the history of present illness. PAST MEDICAL HISTORY: Past medical history is noted for hypertension, hyperlipidemia, history of COPD, history of possible diastolic heart failure and diabetes mellitus. No other significant past medical history of chronic kidney disease. PAST SURGICAL HISTORY: History of thoracentesis at least twice for his pleural effusion. FAMILY HISTORY: No pertinent family history. SOCIAL HISTORY: The patient is currently still an everyday smoker. No alcohol or drug use. PHYSICAL EXAMINATION: VITAL SIGNS: Temperature 98.7, heart rate 91, respirations 17, blood pressure 122/58, saturation 94 to 99 percent on 4 L nasal cannula. GENERAL: Awake, alert, mild to moderate distress. HEENT: Pupils are equal, round and reactive to light and accommodation. Extraocular muscles are intact. NECK: Supple. No JVD, no lymphadenopathy. LUNGS: Clear to auscultation. Decreased breath sounds at both lung bases with absent breath sounds on the right lower lobe and right middle lobe. Minimal was present. HEART: S1, S1, regular rhythm, no murmur. ABDOMEN: Soft, nontender and nondistended. Bowel sounds are present. EXTREMITIES: No clubbing or cyanosis. The patient has 1+ pitting edema. NEUROLOGIC: Alert, oriented x3. Cranial nerves II-XII intact. PSYCHIATRIC: Appropriate affect and mood. LABORATORY AND DIAGNOSTIC IMAGING: Sodium 141, potassium 4, chloride 85, bicarbonate 42, BUN 36, creatinine 1.3, glucose 462, calcium 9.5. LFTs are normal. WBC 10.3, hemoglobin 11.9, platelet count 269. PT is 14.6, PTT/INR 1.1. Chest X-ray done today shows a small to moderate right pleural effusion with adjacent abscess. This is unchanged from prior studies. Ill-defined left opacity with present, edema, atelectasis or consolidations. Moderate cardiomegaly. Thoracic aortosclerosis. IMPRESSION: This is a 61-year-old male who has been admitted for acute COPD exacerbation and acute congestive heart failure. EVALUATION: Renal has been consulted for: 1. Acute kidney injury versus acute kidney injury on chronic kidney disease. This is like secondary to over diuresis with the Lasix and metolazone. 2. Possible chronic kidney disease secondary to a diabetic property. 3. Severe metabolic alkalosis with bicarbonate of 42, secondary to over diuresis. 4. Acute COPD exacerbation. 5. Possible diastolic heart failure with an echo short ejection fraction, 62 to 65, consistent with stage I diastolic dysfunction. 6. History of hyperlipidemia. 7. History of diabetes mellitus PLAN: Thank you, Dr. Mai for this consultation. The patient is currently seen on the telemetry floor. 1. I will stop his metolazone. 2. I will decrease his Lasix to 20 mg IV b.i.d. 3. Stop Lisinopril and metformin due to the acute kidney injury and rising creatinine. 4. The patient needs better glycemic control. He is currently on NPH insulin along with the sliding scale. I will recommend the primary care physician to start some Lantus for better glycemic control. 5. Pain control with hydralazine IV p.r.n. Currently his blood pressure has been under control. IV antibiotics cephalexin and azithromycin to cover him for pneumonia. 6. A renal ultrasound has been ordered to assess kidney size and to rule out hydronephrosis. 7. Ultrasound chest has been ordered for a pleural effusion assessment and if the patient has a moderate to large pleural effusion on the right side, he will need a thoracentesis since the IV Lasix diuresis and up titration of Lasix has not been helping him for diuresis from the right pleural effusions. 8. The patient is currently seen in the telemetry floor and he will be followed up along with his course in the hospital. Total time spent on this patient consultation, evaluation, communication with the patient and communicating with the nursing staff took more than 90 minutes. Dictated By: Rodreick Mariano MD /carlos/ /Document#: [id number]
[2016-12-04] MEDS: FUROSEMIDE 20 MG INJ IV SCH ×2 (06:20→17:17)
[2016-12-04 06:55] LABS: BASOPHILS % 0.1 % (0.0-2.0); HEMATOCRIT 36.6 % (42.0-52.0); HEMOGLOBIN 11.7 g/dl (14.0-18.0); LYMPHOCYTES # 1.4 10^3/ul (0.8-2.9); LYMPHOCYTES % 7.5 % (15.0-51.0); MEAN CORPUSCULAR HEMOGLOBIN 27.7 pg (29.0-33.0); MEAN CORPUSCULAR VOLUME 86.7 fl (82.0-101.0); MEAN PLATELET VOLUME 10.3 fl (7.4-10.4); MONOCYTE # 0.6 10^3/ul (0.3-0.9); MONOCYTES % 3.3 % (0.0-11.0); NEUTROPHIL # 16.1 10^3/ul (1.6-7.5); NEUTROPHILS % 87.5 % (39.0-77.0); PLATELET COUNT 285 10^3/UL (140-415); RED BLOOD COUNT 4.22 10^6/ul (4.70-6.10); RED CELL DISTRIBUTION WIDTH 13.9 % (11.5-14.5); WHITE BLOOD COUNT 18.4 10^3/ul (4.8-10.8)
[2016-12-04 07:50] LABS: CREATININE 1.02 mg/dl (0.61-1.24); POTASSIUM 4.5 mmol/L (3.5-5.1)
[2016-12-04 07:55] LABS: PHOSPHORUS 4.1 mg/dl (2.5-4.9)
[2016-12-04] MEDS: FAMOTIDINE 20 MG TAB PO SCH ×2 (08:23→20:32)
[2016-12-04] MEDS: GABAPENTIN 300 MG CAP PO SCH ×3 (08:23→20:32)
[2016-12-04] MEDS: FERROUS SULFATE (EC) 325 MG TAB PO SCH ×2 (08:23→20:32)
[2016-12-04] MEDS: ASPIRIN 81 MG TAB PO SCH (08:23)
[2016-12-04] MEDS: NIFEdipine (XL) 60 MG TAB PO SCH (08:23)
[2016-12-04] MEDS: METOPROLOL (XL) 25 MG TAB PO SCH ×2 (08:24→20:45)
[2016-12-04] MEDS: SALMETEROL/FLUTICASONE 250/50 INHA INH SCH ×2 (08:25→20:31)
[2016-12-04] MEDS: METHYLPREDNISOLONE 40 MG INJ IV SCH (08:25)
[2016-12-04] MEDS: INSULIN ASPART [NOVOLOG] 3 ML PEN SC SCH ×7 (08:27→21:16)
[2016-12-04] MEDS: HEPARIN 5,000 UNIT/0.5 ML VIAL SC SCH ×2 (08:28→20:34)
[2016-12-04] MEDS: NPH, HUMAN INSULIN ISOPHANE 3ML VIAL SC SCH ×2 (08:30→20:35)
--- NOTE | 2016-12-04 09:45 | PN ---
Date/Time of Note Date/Time of Note DATE: 12/04/16 TIME: 09:43 Assessment/Plan VTE Prophylaxis VTE Prophylaxis Intervention: heparin Lines/Catheters IV C[facility] Type [facility]from [facility] Urinary Cath still in place: No Assessment/Plan Chief Complaint/Hosp Course 1. Acute respiratory failure. Hypoxic. Secondary to COPD exacerbation and possibly a component of diastolic heart failure. Continue inhaled bronchodilators. The patient being followed by pulmonology. 2. Type 2 diabetes mellitus. Hemoglobin A1c 8.2. Blood sugars uncontrolled because of underlying steroid use. Will adjust insulin dosing to obtain optimal blood sugar control. 3. Recurrent right-sided pleural effusion. Status post thoracentesis on 2016 with the drainage is 1.7 L of serous fluid. Repeat thoracentesis done on . Being followed by pulmonary. 4. Anemia. Normocytic and hypochromic. Etiology unclear. Will monitor H&H closely. Iron panel showing low iron and low iron saturation. Continue the patient on iron supplements. 5. Essential hypertension. Continue antihypertensives. 6. Acute kidney injury. Etiology unclear. Probably from overdiuresis versus others. Nephrology following. Improved. 7. Fluids, electrolytes, and nutrition. Carbohydrate controlled diet. 8. DVT prophylaxis with subcutaneous heparin. 9. Gastrointestinal prophylaxis. Histamine 2 receptor blockers. 10. Plan. Continue inhaled bronchodilators. Adjust insulin dosing to obtain optimal blood sugar control. Await further recommendations from consultants. Case discussed with Dr. Gilmore. Problems: Subjective 24 Hr Interval Summary Free Text/Dictation Blood sugars better, still running high. Denies any dyspnea or chest pain. Exam/Review of Systems Vital Signs Vitals Vital Signs Date Time Temp Pulse Resp B/P Pulse Ox O2 Delivery O2 Flow Rate FiO2 12/04/16 08:20 76 12/04/16 07:17 98.0 20 144/73 94 12/03/16 19:35 Nasal Cannula 2.0 12/02/16 18:00 36 Intake and Output 12/03/16 12/03/16 12/04/16 15:00 23:00 07:00 Intake Total 1050 ml 1000 ml Output Total 550 ml 2100 ml 2200 ml Balance -550 ml -1050 ml -1200 ml Exam General: Obese 61 year-old male lying in bed in no apparent distress. HEENT: Normocephalic, atraumatic. Eyes: Anicteric sclerae, conjunctivae clear. ENT: Nasal septum midline, oral mucosa moist. Neck supple, no JVD noticed. Respiratory: Bilaterally diminished breath sounds. No use of accessory muscles of respiration. Scattered rhonchi. Cardiovascular: S1, S2 heard. No murmurs or gallops. Abdomen: Soft, nontender, and nondistended. Bowel sounds positive in all 4 quadrants. Genitourinary: Deferred. Extremities: No cyanosis, no clubbing, trace B/L pedal edema. Peripheral pulses palpable. Neurologic: Cranial nerves II through XII grossly intact. The patient is awake, alert, and oriented. Skin: Normal skin turgor. No skin rashes. Results Result Diagram: 12/04/16 0611 12/04/16 0611 Results 24 hrs Laboratory Tests Test 12/03/16 11:19 12/03/16 17:12 12/03/16 21:03 12/04/16 03:57 Bedside Glucose 295 H 323 H 246 H 235 H Test 12/04/16 06:11 12/04/16 08:12 White Blood Count 18.4 H Red Blood Count 4.22 L Hemoglobin 11.7 L Hematocrit 36.6 L Mean Corpuscular Volume 86.7 Mean Corpuscular Hemoglobin 27.7 L Mean Corpuscular Hemoglobin Concent 32.0 Red Cell Distribution Width 13.9 Platelet Count 285 Mean Platelet Volume 10.3 Neutrophils % 87.5 H Lymphocytes % 7.5 L Monocytes % 3.3 Eosinophils % 0.0 Basophils % 0.1 Nucleated Red Blood Cells % 0.0 Neutrophils # 16.1 H Lymphocytes # 1.4 Monocytes # 0.6 Eosinophils # 0.0 Basophils # 0.0 Nucleated Red Blood Cells # 0.0 Sodium Level 140 Potassium Level 4.5 Chloride Level 94 L Carbon Dioxide Level 32 H Anion Gap 19 H Blood Urea Nitrogen 68 H Creatinine 1.02 Glucose Level 324 H Calcium Level 10.0 Phosphorus Level 4.1 Magnesium Level 2.0 Bedside Glucose 287 H Medications Medications Current Medications Ondansetron HCl (Zofran Inj) 4 mg Q6H PRN IV NAUSEA AND/OR VOMITING; Start at 12:30 Acetaminophen (Tylenol Tab) 650 mg Q6H PRN PO PAIN LEVEL 1-3 OR FEVER Last administered on 12/04/16t 01:56; Admin Dose 650 MG; Start 11/26/16 at 12:30 Acetaminophen/ Hydrocodone Bitart ([place] (5/325)) 1 tab Q6H PRN PO MODERATE PAIN LEVEL 4-6; Start 11/26/16 at 12:30 Morphine Sulfate (morphine) 2 mg Q4H PRN IV SEVERE PAIN LEVEL 7-10; Start 11/26 at 12:30 Docusate Sodium (Colace) 100 mg Q12H PRN PO CONSTIPATION Last administered on 01:55; Admin Dose 100 MG; Start 11/26/16 at 12:30 Zolpidem Tartrate (Ambien) 5 mg QHS PRN PO SLEEP; Start 11/26/16 at 12:30 Aspirin (Aspirin) 81 mg DAILY PO Last administered on 12/04/16 08:23; Admin Dose 81 MG; Start 11/27/16 at 09:00 Gabapentin (Neurontin) 300 mg TID PO Last administered on 12/04/16 08:23; Admin Dose 300 MG; Start 11/26/16 at 13:00 Lisinopril (Zestril) 40 mg DAILY PO Last administered on 12/02/16 08:57; Admin Dose 40 MG; Start 11/26/16 at 12:30; Status Future Hold Metoprolol Succinate (Toprol Xl) 25 mg BID PO Last administered on 12/04/16 08 :24; Admin Dose 25 MG; Start 11/26/16 at 12:30 Nifedipine (Procardia Xl) 60 mg DAILY PO Last administered on 12/04/16 08:23; Admin Dose 60 MG; Start 11/26/16 at 12:30 Salmeterol Xinafoate/ Fluticasone (Advair 250/50 Diskus) 1 inh BID INH Last administered on 12/04/16 08:25; Admin Dose 1 INH; Start 11/26/16 at 21:00 Hydralazine HCl (Apresoline) 10 mg Q4H PRN IV SBP>170 Last administered on 11/28 04:05; Admin Dose 10 MG; Start 11/26/16 at 12:30 Miscellaneous Information 1 ea NOTE XX ; Start 11/26/16 at 12:30 Glucose (Glutose) 15 gm Q15M PRN PO DECREASED GLUCOSE; Start 11/26/16 at 12:30 Glucose (Glutose) 22.5 gm Q15M PRN PO DECREASED GLUCOSE; Start 11/26/16 at 12: 30 Dextrose (D50w Syringe) 25 ml Q15M PRN IV DECREASED GLUCOSE; Start 11/26/16 at 12:30 Dextrose (D50w Syringe) 50 ml Q15M PRN IV DECREASED GLUCOSE; Start 11/26/16 at 12:30 Glucagon (Glucagen) 1 mg Q15M PRN IM DECREASED GLUCOSE; Start 11/26/16 at 12:30 Glucose 15 gm 15 gm Q15M PRN BUCCAL DECREASED GLUCOSE; Start 11/26/16 at 12:30 Ceftriaxone Sodium 50 ml @ 100 mls/hr Q24H IVPB Last administered on 17:05; Admin Dose 100 MLS/HR; Start 11/26/16 at 17:00 Azithromycin (Zithromax 500mg/ NS (Pmx)) 250 ml @ 250 mls/hr Q24H IVPB Last administered on 12/03/16 18:19; Admin Dose 250 MLS/HR; Start 11/26/16 at 18:00 Diagnostic Test (Pha) (Accu-Chek) 1 ea 02 XX Last administered on 12/02/16 01: 16; Admin Dose 1 EA; Start 11/27/16 at 02:00 Heparin Sodium (Porcine) (Heparin (5000 Units/0.5 ml)) 5,000 unit BID SC Last administered on 12/04/16 08:28; Admin Dose 5,000 UNIT; Start 11/30/16 at 21:00 Famotidine (Pepcid) 20 mg BID PO Last administered on 12/04/16 08:23; Admin Dose 20 MG; Start 11/30/16 at 21:00 Ferrous Sulfate (Ferrous Sulfate (Ec)) 325 mg BID PO Last administered on 08:23; Admin Dose 325 MG; Start 12/01/16 at 21:00 Nifedipine (Procardia Xl) 30 mg HS PO Last administered on 12/03/16 21:00; Admin Dose 30 MG; Start 12/01/16 at 21:00 Methylprednisolone Sodium Succinate (Solu-Medrol) 40 mg BID@08,20 IV Last administered on 12/04/16 08:25; Admin Dose 40 MG; Start 7/26/17 at 20:00 Insulin Glargine (Lantus) 36 unit QHS SC Last administered on 12/03/16 21:11; Admin Dose 36 UNIT; Start 12/03/16 at 21:00 Insulin Human NPH (Humulin N) 14 unit BID@08,20 SC Last administered on 08:30; Admin Dose 14 UNIT; Start 12/03/16 at 20:00 NILES AYALA NP Dec 04, 2016 09:45
--- NOTE | 2016-12-04 12:42 | CONS ---
Date/Time of Note Date/Time of Note DATE: 12/04/16 TIME: 12:38 Assessment/Plan Assessment/Plan Additional Assessment/Plan 1. acute kidney injury on chronic kidney disease. This is like secondary to over diuresis with the Lasix and metolazone. 2. Possible chronic kidney disease secondary to a diabetic Nephropathy 3. Severe metabolic alkalosis with bicarbonate of 42, secondary to over diuresis and compensatory for resp acidosis from COPD 4. Acute COPD exacerbation. 5. Possible diastolic heart failure with an echo short ejection fraction, 62 to 65, consistent with stage I diastolic dysfunction. 6. History of hyperlipidemia. 7. History of diabetes mellitus Plan: Cr 1.02, HCO3 32, stable, improving expecign creatinine to improve gentle diureisis, I ordered XR chest today to follow up on CHF, pleural effusion - if improving CXR findings today then we will consider switching lasix to PO 40mg BID today BP stable will follow up Consultation Date/Type/Reason Admit Date/Time Nov 26, 2016 at 08:55 Initial Consult Date 11/28/16 Type of Consultation: NEPHROLOGY Referring Provider: JERMAINE TEJADA Exam/Review of Systems Vital Signs Vitals Vital Signs Date Time Temp Pulse Resp B/P Pulse Ox O2 Delivery O2 Flow Rate FiO2 12/04/16 11:13 97.6 71 19 123/63 97 12/03/16 19:35 Nasal Cannula 2.0 12/02/16 18:00 36 Intake and Output 12/03/16 12/03/16 12/04/16 15:00 23:00 07:00 Intake Total 1050 ml 1000 ml Output Total 550 ml 2100 ml 2200 ml Balance -550 ml -1050 ml -1200 ml Exam Constitutional: alert Psych: no complaints Head: normocephalic Respiratory: crackles/rales, diminished breath sounds Cardiovascular: regular rate and rhythm Gastrointestinal: bowel sounds, firm, non-tender, soft Musculoskeletal: other (1+ edema ) Neurological: [employer] II-XII intact Results Result Diagram: 12/04/16 0611 12/04/16 0611 Results 24 hrs Laboratory Tests Test 12/03/16 17:12 12/03/16 21:03 12/04/16 03:57 12/04/16 06:11 Bedside Glucose 323 H 246 H 235 H White Blood Count 18.4 H Red Blood Count 4.22 L Hemoglobin 11.7 L Hematocrit 36.6 L Mean Corpuscular Volume 86.7 Mean Corpuscular Hemoglobin 27.7 L Mean Corpuscular Hemoglobin Concent 32.0 Red Cell Distribution Width 13.9 Platelet Count 285 Mean Platelet Volume 10.3 Neutrophils % 87.5 H Lymphocytes % 7.5 L Monocytes % 3.3 Eosinophils % 0.0 Basophils % 0.1 Nucleated Red Blood Cells % 0.0 Neutrophils # 16.1 H Lymphocytes # 1.4 Monocytes # 0.6 Eosinophils # 0.0 Basophils # 0.0 Nucleated Red Blood Cells # 0.0 Sodium Level 140 Potassium Level 4.5 Chloride Level 94 L Carbon Dioxide Level 32 H Anion Gap 19 H Blood Urea Nitrogen 68 H Creatinine 1.02 Glucose Level 324 H Calcium Level 10.0 Phosphorus Level 4.1 Magnesium Level 2.0 Test 12/04/16 08:12 12/04/16 11:41 Bedside Glucose 287 H 236 H Medications Medications Current Medications Ondansetron HCl (Zofran Inj) 4 mg Q6H PRN IV NAUSEA AND/OR VOMITING; Start at 12:30 Acetaminophen (Tylenol Tab) 650 mg Q6H PRN PO PAIN LEVEL 1-3 OR FEVER Last administered on 12/04/16 01:56; Admin Dose 650 MG; Start 11/26/16 at 12:30 Acetaminophen/ Hydrocodone Bitart ([place] (5/325)) 1 tab Q6H PRN PO MODERATE PAIN LEVEL 4-6; Start 11/26/16 at 12:30 Morphine Sulfate (morphine) 2 mg Q4H PRN IV SEVERE PAIN LEVEL 7-10; Start 11/26 at 12:30 Docusate Sodium (Colace) 100 mg Q12H PRN PO CONSTIPATION Last administered on 01:55; Admin Dose 100 MG; Start 11/26/16 at 12:30 Zolpidem Tartrate (Ambien) 5 mg QHS PRN PO SLEEP; Start 11/26/16 at 12:30 Aspirin (Aspirin) 81 mg DAILY PO Last administered on 12/04/16 08:23; Admin Dose 81 MG; Start 11/27/16 at 09:00 Gabapentin (Neurontin) 300 mg TID PO Last administered on 12/04/16 08:23; Admin Dose 300 MG; Start 11/26/16 at 13:00 Lisinopril (Zestril) 40 mg DAILY PO Last administered on 12/02/16 08:57; Admin Dose 40 MG; Start 11/26/16 at 12:30; Status Future Hold Metoprolol Succinate (Toprol Xl) 25 mg BID PO Last administered on 12/04/16 08 :24; Admin Dose 25 MG; Start 11/26/16 at 12:30 Nifedipine (Procardia Xl) 60 mg DAILY PO Last administered on 12/04/16 08:23; Admin Dose 60 MG; Start 11/26/16 at 12:30 Salmeterol Xinafoate/ Fluticasone (Advair 250/50 Diskus) 1 inh BID INH Last administered on 12/04/16 08:25; Admin Dose 1 INH; Start 11/26/16 at 21:00 Hydralazine HCl (Apresoline) 10 mg Q4H PRN IV SBP>170 Last administered on 11/28 04:05; Admin Dose 10 MG; Start 11/26/16 at 12:30 Miscellaneous Information 1 ea NOTE XX ; Start 11/26/16 at 12:30 Glucose (Glutose) 15 gm Q15M PRN PO DECREASED GLUCOSE; Start 11/26/16 at 12:30 Glucose (Glutose) 22.5 gm Q15M PRN PO DECREASED GLUCOSE; Start 11/26/16 at 12: 30 Dextrose (D50w Syringe) 25 ml Q15M PRN IV DECREASED GLUCOSE; Start 11/26/16 at 12:30 Dextrose (D50w Syringe) 50 ml Q15M PRN IV DECREASED GLUCOSE; Start 11/26/16 at 12:30 Glucagon (Glucagen) 1 mg Q15M PRN IM DECREASED GLUCOSE; Start 11/26/16 at 12:30 Glucose 15 gm 15 gm Q15M PRN BUCCAL DECREASED GLUCOSE; Start 11/26/16 at 12:30 Ceftriaxone Sodium 50 ml @ 100 mls/hr Q24H IVPB Last administered on 17:05; Admin Dose 100 MLS/HR; Start 11/26/16 at 17:00 Azithromycin (Zithromax 500mg/ NS (Pmx)) 250 ml @ 250 mls/hr Q24H IVPB Last administered on 12/03/16 18:19; Admin Dose 250 MLS/HR; Start 11/26/16 at 18:00 Diagnostic Test (Pha) (Accu-Chek) 1 ea 02 XX Last administered on 12/02/16 01: 16; Admin Dose 1 EA; Start 11/27/16 at 02:00 Heparin Sodium (Porcine) (Heparin (5000 Units/0.5 ml)) 5,000 unit BID SC Last administered on 12/04/16 08:28; Admin Dose 5,000 UNIT; Start 11/30/16 at 21:00 Famotidine (Pepcid) 20 mg BID PO Last administered on 12/04/16 08:23; Admin Dose 20 MG; Start 11/30/16 at 21:00 Ferrous Sulfate (Ferrous Sulfate (Ec)) 325 mg BID PO Last administered on 08:23; Admin Dose 325 MG; Start 12/01/16 at 21:00 Nifedipine (Procardia Xl) 30 mg HS PO Last administered on 12/03/16 21:00; Admin Dose 30 MG; Start 12/01/16 at 21:00 Methylprednisolone Sodium Succinate (Solu-Medrol) 40 mg BID@08,20 IV Last administered on 12/04/16 08:25; Admin Dose 40 MG; Start 12/02/16 at 20:00 Insulin Glargine (Lantus) 36 unit QHS SC Last administered on 12/03/16 21:11; Admin Dose 36 UNIT; Start 12/03/16 at 21:00 Insulin Human NPH (Humulin N) 18 unit BID@08,20 SC ; Start 12/04/16 at 20:00 BON GUERRERO MD Dec 04, 2016 12:42
--- NOTE | 2016-12-04 13:02 | RADRPT ---
PROCEDURE: XR Chest. CLINICAL INDICATION: Shortness of breath. TECHNIQUE: Single frontal view. COMPARISON: 12/02/2016. FINDINGS: There is mild right basilar atelectasis and a small right pleural effusion. The lungs are otherwise clear. The heart is enlarged. There is calcification in the aorta consistent with atherosclerosis. There is no pleural effusion. There is no pneumothorax. IMPRESSION: 1. Small right pleural effusion. 2. Mild atelectasis at the lung bases. 3. Cardiomegaly and atherosclerosis. RPTAT: QQ .Kayden Cervantes MD, MD Date Time Electronically viewed and signed by .Kayden Cervantes MD, MD on 12/04/2016 13:02 .R/
--- NOTE | 2016-12-04 13:39 | CONS ---
Date/Time of Note Date/Time of Note DATE: 12/04/16 TIME: 13:35 Assessment/Plan Assessment/Plan Chief Complaint/Hosp Course IMP: 1.CHF-diastolic chronic- Echo 12/01 EF 55-60/DD/MR/TR 2.HTN 3.PLeural effusion- R sided s/p thoracentesis 12/02 4.HTN 5.DM 6.Anemia 7. Renal failure 8. Copd Rec: -Tele -serial ecg's -Follow renal function closely on gentle lasix diuresis -Continue asa -Continue procardia XL/Topol XL Problems: Consultation Date/Type/Reason Admit Date/Time Nov 26, 2016 at 08:55 Initial Consult Date 11/28/16 Type of Consultation: cardiology Reason for Consultation chf Referring Provider: JERMAINE TEJADA Exam/Review of Systems Vital Signs Vitals Vital Signs Date Time Temp Pulse Resp B/P Pulse Ox O2 Delivery O2 Flow Rate FiO2 12/04/16 12:44 60 12/04/16 11:13 97.6 19 123/63 97 12/03/16 19:35 Nasal Cannula 2.0 12/02/16 18:00 36 Intake and Output 12/03/16 12/03/16 12/04/16 15:00 23:00 07:00 Intake Total 1050 ml 1000 ml Output Total 550 ml 2100 ml 2200 ml Balance -550 ml -1050 ml -1200 ml Exam Review of Systems: CONSTITUTIONAL: No fevers, chills. PULMONARY: No sob CARDIOVASCULAR: No chest pain/palpitations GASTROINTESTINAL: No nausea/vomiting. GENITOURINARY: No hematuria/dysuria. MUSCULOSKELETAL: No myagias/arthalgias. PSYCHIATRIC: The patient denies depression. NEUROLOGIC: lethargic Constitutional: other (sleeping) Psych: no complaints Head: normocephalic ENMT: mucosa pink and moist Neck: jvd (9 cm water), supple Respiratory: diminished breath sounds (at bases/B) Cardiovascular: regular rate and rhythm Gastrointestinal: non-tender, soft Musculoskeletal: muscle weakness (generalized) Extremities: edema (none) Neurological: lethargic Results Result Diagram: 12/04/16 0611 12/04/16 0611 Results 24 hrs Laboratory Tests Test 12/03/16 17:12 12/03/16 21:03 12/04/16 03:57 12/04/16 06:11 Bedside Glucose 323 H 246 H 235 H White Blood Count 18.4 H Red Blood Count 4.22 L Hemoglobin 11.7 L Hematocrit 36.6 L Mean Corpuscular Volume 86.7 Mean Corpuscular Hemoglobin 27.7 L Mean Corpuscular Hemoglobin Concent 32.0 Red Cell Distribution Width 13.9 Platelet Count 285 Mean Platelet Volume 10.3 Neutrophils % 87.5 H Lymphocytes % 7.5 L Monocytes % 3.3 Eosinophils % 0.0 Basophils % 0.1 Nucleated Red Blood Cells % 0.0 Neutrophils # 16.1 H Lymphocytes # 1.4 Monocytes # 0.6 Eosinophils # 0.0 Basophils # 0.0 Nucleated Red Blood Cells # 0.0 Sodium Level 140 Potassium Level 4.5 Chloride Level 94 L Carbon Dioxide Level 32 H Anion Gap 19 H Blood Urea Nitrogen 68 H Creatinine 1.02 Glucose Level 324 H Calcium Level 10.0 Phosphorus Level 4.1 Magnesium Level 2.0 Test 12/04/16 08:12 12/04/16 11:41 Bedside Glucose 287 H 236 H Medications Medications Current Medications Ondansetron HCl (Zofran Inj) 4 mg Q6H PRN IV NAUSEA AND/OR VOMITING; Start at 12:30 Acetaminophen (Tylenol Tab) 650 mg Q6H PRN PO PAIN LEVEL 1-3 OR FEVER Last administered on 12/04/16 01:56; Admin Dose 650 MG; Start 11/26/16 at 12:30 Acetaminophen/ Hydrocodone Bitart ([place] (5/325)) 1 tab Q6H PRN PO MODERATE PAIN LEVEL 4-6; Start 11/26/16 at 12:30 Morphine Sulfate (morphine) 2 mg Q4H PRN IV SEVERE PAIN LEVEL 7-10; Start 11/26 at 12:30 Docusate Sodium (Colace) 100 mg Q12H PRN PO CONSTIPATION Last administered on 01:55; Admin Dose 100 MG; Start 11/26/16 at 12:30 Zolpidem Tartrate (Ambien) 5 mg QHS PRN PO SLEEP; Start 11/26/16 at 12:30 Aspirin (Aspirin) 81 mg DAILY PO Last administered on 12/04/16 08:23; Admin Dose 81 MG; Start 11/27/16 at 09:00 Gabapentin (Neurontin) 300 mg TID PO Last administered on 12/04/16 13:13; Admin Dose 300 MG; Start 11/26/16 at 13:00 Lisinopril (Zestril) 40 mg DAILY PO Last administered on 12/02/16 08:57; Admin Dose 40 MG; Start 11/26/16 at 12:30; Status Future Hold Metoprolol Succinate (Toprol Xl) 25 mg BID PO Last administered on 12/04/16 08 :24; Admin Dose 25 MG; Start 11/26/16 at 12:30 Nifedipine (Procardia Xl) 60 mg DAILY PO Last administered on 12/04/16 08:23; Admin Dose 60 MG; Start 11/26/16 at 12:30 Salmeterol Xinafoate/ Fluticasone (Advair 250/50 Diskus) 1 inh BID INH Last administered on 12/04/16 08:25; Admin Dose 1 INH; Start 11/26/16 at 21:00 Hydralazine HCl (Apresoline) 10 mg Q4H PRN IV SBP>170 Last administered on 11/28 04:05; Admin Dose 10 MG; Start 11/26/16 at 12:30 Miscellaneous Information 1 ea NOTE XX ; Start 11/26/16 at 12:30 Glucose (Glutose) 15 gm Q15M PRN PO DECREASED GLUCOSE; Start 11/26/16 at 12:30 Glucose (Glutose) 22.5 gm Q15M PRN PO DECREASED GLUCOSE; Start 11/26/16 at 12: 30 Dextrose (D50w Syringe) 25 ml Q15M PRN IV DECREASED GLUCOSE; Start 11/26/16 at 12:30 Dextrose (D50w Syringe) 50 ml Q15M PRN IV DECREASED GLUCOSE; Start 11/26/16 at 12:30 Glucagon (Glucagen) 1 mg Q15M PRN IM DECREASED GLUCOSE; Start 11/26/16 at 12:30 Glucose 15 gm 15 gm Q15M PRN BUCCAL DECREASED GLUCOSE; Start 11/26/16 at 12:30 Ceftriaxone Sodium 50 ml @ 100 mls/hr Q24H IVPB Last administered on 17:05; Admin Dose 100 MLS/HR; Start 11/26/16 at 17:00 Azithromycin (Zithromax 500mg/ NS (Pmx)) 250 ml @ 250 mls/hr Q24H IVPB Last administered on 12/03/16 18:19; Admin Dose 250 MLS/HR; Start 11/26/16 at 18:00 Diagnostic Test (Pha) (Accu-Chek) 1 ea 02 XX Last administered on 12/02/16 01: 16; Admin Dose 1 EA; Start 11/27/16 at 02:00 Heparin Sodium (Porcine) (Heparin (5000 Units/0.5 ml)) 5,000 unit BID SC Last administered on 12/04/16 08:28; Admin Dose 5,000 UNIT; Start 11/30/16 at 21:00 Famotidine (Pepcid) 20 mg BID PO Last administered on 12/04/16 08:23; Admin Dose 20 MG; Start 11/30/16 at 21:00 Ferrous Sulfate (Ferrous Sulfate (Ec)) 325 mg BID PO Last administered on 08:23; Admin Dose 325 MG; Start 12/01/16 at 21:00 Nifedipine (Procardia Xl) 30 mg HS PO Last administered on 12/03/16 21:00; Admin Dose 30 MG; Start 12/01/16 at 21:00 Methylprednisolone Sodium Succinate (Solu-Medrol) 40 mg BID@08,20 IV Last administered on 12/04/16 08:25; Admin Dose 40 MG; Start 12/02/16 at 20:00 Insulin Glargine (Lantus) 36 unit QHS SC Last administered on 12/03/16 21:11; Admin Dose 36 UNIT; Start 12/03/16 at 21:00 Insulin Human NPH (Humulin N) 18 unit BID@08,20 SC ; Start 12/04/16 at 20:00 JOSÉ GARCIA Dec 04, 2016 13:39
--- NOTE | 2016-12-04 15:38 | CONS ---
Date/Time of Note Date/Time of Note DATE: 12/04/16 TIME: 15:37 Consult Date/Type/Reason Admit Date/Time Nov 26, 2016 at 08:55 Initial Consult Date 11/28/16 Type of Consultation: Pulmonary Ordering Provider: JERMAINE TEJADA Subjective Patient comfortable this morning denies any shortness of breath. Objective Vital Signs Date Time Temp Pulse Resp B/P Pulse Ox O2 Delivery O2 Flow Rate FiO2 12/04/16 15:17 98.4 80 19 139/67 96 12/03/16 19:35 Nasal Cannula 2.0 12/02/16 18:00 36 Intake and Output 12/03/16 12/03/16 12/04/16 15:00 23:00 07:00 Intake Total 1050 ml 1000 ml Output Total 550 ml 2100 ml 2200 ml Balance -550 ml -1050 ml -1200 ml Exam GENERAL: Morbidly obese gentleman comfortable at rest no acute distress VITAL SIGNS: per chart NECK: Supple. No JVD or lymphadenopathy. CARDIAC EXAM: S1, S2. No added sounds or murmurs. CHEST: clear bilaterally, No added sounds, rales or wheezes ABDOMEN: Soft, nontender. No guarding or rebound. EXTREMITIES: No cyanosis, clubbing or edema. NEUROLOGIC: Generalized weakness. No focal deficits. Results/Medications Result Diagram: 12/04/16 0611 12/04/16 0611 Results 24 hrs Laboratory Tests Test 12/03/16 17:12 12/03/16 21:03 12/04/16 03:57 12/04/16 06:11 Bedside Glucose 323 H 246 H 235 H White Blood Count 18.4 H Red Blood Count 4.22 L Hemoglobin 11.7 L Hematocrit 36.6 L Mean Corpuscular Volume 86.7 Mean Corpuscular Hemoglobin 27.7 L Mean Corpuscular Hemoglobin Concent 32.0 Red Cell Distribution Width 13.9 Platelet Count 285 Mean Platelet Volume 10.3 Neutrophils % 87.5 H Lymphocytes % 7.5 L Monocytes % 3.3 Eosinophils % 0.0 Basophils % 0.1 Nucleated Red Blood Cells % 0.0 Neutrophils # 16.1 H Lymphocytes # 1.4 Monocytes # 0.6 Eosinophils # 0.0 Basophils # 0.0 Nucleated Red Blood Cells # 0.0 Sodium Level 140 Potassium Level 4.5 Chloride Level 94 L Carbon Dioxide Level 32 H Anion Gap 19 H Blood Urea Nitrogen 68 H Creatinine 1.02 Glucose Level 324 H Calcium Level 10.0 Phosphorus Level 4.1 Magnesium Level 2.0 Test 12/04/16 08:12 12/04/16 11:41 Bedside Glucose 287 H 236 H Medications Current Medications Ondansetron HCl (Zofran Inj) 4 mg Q6H PRN IV NAUSEA AND/OR VOMITING; Start at 12:30 Acetaminophen (Tylenol Tab) 650 mg Q6H PRN PO PAIN LEVEL 1-3 OR FEVER Last administered on 12/04/16 01:56; Admin Dose 650 MG; Start 11/26/16 at 12:30 Acetaminophen/ Hydrocodone Bitart ([place] (5/325)) 1 tab Q6H PRN PO MODERATE PAIN LEVEL 4-6; Start 11/26/16 at 12:30 Morphine Sulfate (morphine) 2 mg Q4H PRN IV SEVERE PAIN LEVEL 7-10; Start 11/26 at 12:30 Docusate Sodium (Colace) 100 mg Q12H PRN PO CONSTIPATION Last administered on 01:55; Admin Dose 100 MG; Start 11/26/16 at 12:30 Zolpidem Tartrate (Ambien) 5 mg QHS PRN PO SLEEP; Start 11/26/16 at 12:30 Aspirin (Aspirin) 81 mg DAILY PO Last administered on 12/04/16 08:23; Admin Dose 81 MG; Start 11/27/16 at 09:00 Gabapentin (Neurontin) 300 mg TID PO Last administered on 12/04/16 13:13; Admin Dose 300 MG; Start 11/26/16 at 13:00 Lisinopril (Zestril) 40 mg DAILY PO Last administered on 12/02/16 08:57; Admin Dose 40 MG; Start 11/26/16 at 12:30; Status Future Hold Metoprolol Succinate (Toprol Xl) 25 mg BID PO Last administered on 12/04/16 08 :24; Admin Dose 25 MG; Start 11/26/16 at 12:30 Nifedipine (Procardia Xl) 60 mg DAILY PO Last administered on 12/04/16 08:23; Admin Dose 60 MG; Start 11/26/16 at 12:30 Salmeterol Xinafoate/ Fluticasone (Advair 250/50 Diskus) 1 inh BID INH Last administered on 12/04/16 08:25; Admin Dose 1 INH; Start 11/26/16 at 21:00 Hydralazine HCl (Apresoline) 10 mg Q4H PRN IV SBP>170 Last administered on 11/28 04:05; Admin Dose 10 MG; Start 11/26/16 at 12:30 Miscellaneous Information 1 ea NOTE XX ; Start 11/26/16 at 12:30 Glucose (Glutose) 15 gm Q15M PRN PO DECREASED GLUCOSE; Start 11/26/16 at 12:30 Glucose (Glutose) 22.5 gm Q15M PRN PO DECREASED GLUCOSE; Start 11/26/16 at 12: 30 Dextrose (D50w Syringe) 25 ml Q15M PRN IV DECREASED GLUCOSE; Start 11/26/16 at 12:30 Dextrose (D50w Syringe) 50 ml Q15M PRN IV DECREASED GLUCOSE; Start 11/26/16 at 12:30 Glucagon (Glucagen) 1 mg Q15M PRN IM DECREASED GLUCOSE; Start 11/26/16 at 12:30 Glucose 15 gm 15 gm Q15M PRN BUCCAL DECREASED GLUCOSE; Start 11/26/16 at 12:30 Ceftriaxone Sodium 50 ml @ 100 mls/hr Q24H IVPB Last administered on 17:05; Admin Dose 100 MLS/HR; Start 11/26/16 at 17:00 Azithromycin (Zithromax 500mg/ NS (Pmx)) 250 ml @ 250 mls/hr Q24H IVPB Last administered on 12/03/16 18:19; Admin Dose 250 MLS/HR; Start 11/26/16 at 18:00 Diagnostic Test (Pha) (Accu-Chek) 1 ea 02 XX Last administered on 12/02/16 01: 16; Admin Dose 1 EA; Start 11/27/16 at 02:00 Heparin Sodium (Porcine) (Heparin (5000 Units/0.5 ml)) 5,000 unit BID SC Last administered on 12/04/16 08:28; Admin Dose 5,000 UNIT; Start 11/30/16 at 21:00 Famotidine (Pepcid) 20 mg BID PO Last administered on 12/04/16 08:23; Admin Dose 20 MG; Start 11/30/16 at 21:00 Ferrous Sulfate (Ferrous Sulfate (Ec)) 325 mg BID PO Last administered on 08:23; Admin Dose 325 MG; Start 12/01/16 at 21:00 Nifedipine (Procardia Xl) 30 mg HS PO Last administered on 12/03/16 21:00; Admin Dose 30 MG; Start 12/01/16 at 21:00 Methylprednisolone Sodium Succinate (Solu-Medrol) 40 mg BID@08,20 IV Last administered on 12/04/16 08:25; Admin Dose 40 MG; Start 12/02/16 at 20:00 Insulin Glargine (Lantus) 36 unit QHS SC Last administered on 12/03/16 21:11; Admin Dose 36 UNIT; Start 12/03/16 at 21:00 Insulin Human NPH (Humulin N) 18 unit BID@08,20 SC ; Start 12/04/16 at 20:00 Assessment/Plan Chief Complaint/Hosp Course Assessment 1. Hypoxemic respiratory failure combination of heart failure and COPD exacerbation chest x-ray also demonstrates pleural effusion. Status post thoracentesis pleural fluid appears to be exudative possibly postinfectious 2. Congestive cardiac failure with pleural effusions pleural fluid was not sent for studies. 3. Morbid obesity 4. Diabetes mellitus Plan 1. Continue current antibiotics. 2. Continue current glycemic management 3. Diuretics per nephrology 4. Echocardiogram cardiology recommendations 5. DVT GI prophylaxis 6. Ambulate record oxygen saturations. 7. Decrease steroids possible etiology of leukocytosis 8. Thoracentesis right lung. Negative for malignancy Discharge planning Problems: KEYSHA FONSECA MD, [facility] Dec 04, 2016 15:38
[2016-12-04] MEDS: CEFTRIAXONE 1 GM/50 ML (PMX) 50 ML IVPB SCH (17:18)
[2016-12-04] MEDS: AZITHROMYCIN 500MG/NS (PMX) 250 ML IVPB SCH (18:17)
[2016-12-04] MEDS: NIFEdipine (XL) 30 MG TAB PO SCH (20:32)
[2016-12-04] MEDS: DOCUSATE SODIUM 100 MG CAP PO PRN (20:44)
[2016-12-04] MEDS: INSULIN GLARGINE [LANtus] 3 ML PEN SC SCH (21:17)
[2016-12-05] VITALS (8 sets, daily range): BP systolic 106–157; BP diastolic 55–74; PULSE 69–78; RESP 20
[2016-12-05] MEDS: ACCU-CHEK XX SCH (02:00)
[2016-12-05] MEDS: FUROSEMIDE 20 MG INJ IV SCH (05:44)
[2016-12-05 07:16] LABS: ABNORMAL IP MESSAGE 1; BASOPHILS % 0.2 % (0.0-2.0); EOSINOPHILS % 0.2 % (0.0-7.0); HEMATOCRIT 40.6 % (42.0-52.0); HEMOGLOBIN 12.6 g/dl (14.0-18.0); LYMPHOCYTES # 5.2 10^3/ul (0.8-2.9); MEAN CORPUSCULAR HEMOGLOBIN 27.2 pg (29.0-33.0); MEAN CORPUSCULAR VOLUME 87.5 fl (82.0-101.0); MEAN PLATELET VOLUME 10.5 fl (7.4-10.4); MONOCYTE # 1.9 10^3/ul (0.3-0.9); MONOCYTES % 9.5 % (0.0-11.0); NEUTROPHIL # 12.2 10^3/ul (1.6-7.5); NEUTROPHILS % 61.9 % (39.0-77.0); PLATELET COUNT 346 10^3/UL (140-415); POSITIVE DIFF @See below; RED BLOOD COUNT 4.64 10^6/ul (4.70-6.10); WHITE BLOOD COUNT 19.8 10^3/ul (4.8-10.8)
[2016-12-05 07:34] LABS: MAGNESIUM 2.1 mg/dl (1.7-2.5); PHOSPHORUS 4.1 mg/dl (2.5-4.9)
[2016-12-05 07:35] LABS: CALCIUM 10.1 mg/dl (8.4-10.2); CREATININE 1.2 mg/dl (0.61-1.24)
[2016-12-05] MEDS: ALBUTEROL/IPRATROPIUM (NEB) 3 ML AMP HHN PRN (08:04)
[2016-12-05] MEDS: FAMOTIDINE 20 MG TAB PO SCH (08:22)
[2016-12-05] MEDS: FERROUS SULFATE (EC) 325 MG TAB PO SCH (08:24)
[2016-12-05] MEDS: GABAPENTIN 300 MG CAP PO SCH ×2 (08:24→12:38)
[2016-12-05] MEDS: METOPROLOL (XL) 25 MG TAB PO SCH (08:24)
[2016-12-05] MEDS: ASPIRIN 81 MG TAB PO SCH (08:24)
[2016-12-05] MEDS: NIFEdipine (XL) 60 MG TAB PO SCH (08:25)
[2016-12-05] MEDS: HEPARIN 5,000 UNIT/0.5 ML VIAL SC SCH (08:26)
[2016-12-05] MEDS: SALMETEROL/FLUTICASONE 250/50 INHA INH SCH (08:27)
[2016-12-05] MEDS: NPH, HUMAN INSULIN ISOPHANE 3ML VIAL SC SCH (08:32)
[2016-12-05] MEDS: INSULIN ASPART [NOVOLOG] 3 ML PEN SC SCH ×4 (08:35→12:36)
--- NOTE | 2016-12-05 08:54 | PN ---
Date/Time of Note Date/Time of Note DATE: 12/05/16 TIME: 08:52 Assessment/Plan VTE Prophylaxis VTE Prophylaxis Intervention: heparin Lines/Catheters IV [facility] Urinary Cath still in place: No Assessment/Plan Chief Complaint/Hosp Course 1. Acute respiratory failure. Hypoxic. Secondary to COPD exacerbation and diastolic heart failure. Continue inhaled bronchodilators. The patient being followed by pulmonology. 2. Type 2 diabetes mellitus. Hemoglobin A1c 8.2. 3. Recurrent right-sided pleural effusion. Status post thoracentesis on 2016 with the drainage is 1.7 L of serous fluid. Repeat thoracentesis done on . Being followed by pulmonary. Pathology negative for any malignancy. 4. Anemia. Normocytic and hypochromic. Etiology unclear. Will monitor H&H closely. Iron panel showing low iron and low iron saturation. Continue the patient on iron supplements. 5. Essential hypertension. Continue antihypertensives. 6. Acute kidney injury. Etiology unclear. Probably from overdiuresis versus others. Nephrology following. Improved. 7. Hyperdynamic left ventricular systolic function. Being followed by cardiology. Medical management as per cardiology. 8. Fluids, electrolytes, and nutrition. Carbohydrate controlled diet. 9. DVT prophylaxis with subcutaneous heparin. 10. Gastrointestinal prophylaxis. Histamine 2 receptor blockers. 11. Plan. Continue inhaled bronchodilators. Await further recommendations from consultants. Case discussed with Dr. Gilmore. Problems: Subjective 24 Hr Interval Summary Free Text/Dictation Denies any dyspnea or chest pain. Exam/Review of Systems Vital Signs Vitals Vital Signs Date Time Temp Pulse Resp B/P Pulse Ox O2 Delivery O2 Flow Rate FiO2 12/05/16 08:18 72 12/05/16 08:04 20 98 21 12/05/16 07:31 98.0 157/74 12/03/16 19:35 Nasal Cannula 2.0 Intake and Output 12/04/16 12/04/16 12/05/16 15:00 23:00 07:00 Intake Total 950 ml 400 ml Output Total 1800 ml 1600 ml Balance -850 ml -1200 ml Exam General: Obese 61 year-old male lying in bed in no apparent distress. HEENT: Normocephalic, atraumatic. Eyes: Anicteric sclerae, conjunctivae clear. ENT: Nasal septum midline, oral mucosa moist. Neck supple, no JVD noticed. Respiratory: Bilaterally diminished breath sounds. No use of accessory muscles of respiration. Scattered rhonchi. Cardiovascular: S1, S2 heard. No murmurs or gallops. Abdomen: Soft, nontender, and nondistended. Bowel sounds positive in all 4 quadrants. Genitourinary: Deferred. Extremities: No cyanosis, no clubbing, trace B/L pedal edema. Peripheral pulses palpable. Neurologic: Cranial nerves II through XII grossly intact. The patient is awake, alert, and oriented. Skin: Normal skin turgor. No skin rashes. Results Result Diagram: 12/05/16 0604 12/05/16 0604 Results 24 hrs Laboratory Tests Test 12/04/16 11:41 12/04/16 17:11 12/04/16 20:30 12/05/16 02:07 Bedside Glucose 236 H 282 H 318 H 214 Test 12/05/16 06:04 12/05/16 08:19 White Blood Count 19.8 H Red Blood Count 4.64 L Hemoglobin 12.6 L Hematocrit 40.6 L Mean Corpuscular Volume 87.5 Mean Corpuscular Hemoglobin 27.2 L Mean Corpuscular Hemoglobin Concent 31.0 L Red Cell Distribution Width 14.0 Platelet Count 346 # Mean Platelet Volume 10.5 H Neutrophils % 61.9 Lymphocytes % 26.0 Monocytes % 9.5 Eosinophils % 0.2 Basophils % 0.2 Nucleated Red Blood Cells % 0.0 Neutrophils # 12.2 H Lymphocytes # 5.2 H Monocytes # 1.9 H Eosinophils # 0.0 Basophils # 0.0 Nucleated Red Blood Cells # 0.0 Sodium Level 144 Potassium Level 4.0 Chloride Level 96 L Carbon Dioxide Level 34 H Anion Gap 18 H Blood Urea Nitrogen 68 H Creatinine 1.20 Glucose Level 162 # Calcium Level 10.1 Phosphorus Level 4.1 Magnesium Level 2.1 Bedside Glucose 191 Medications Medications Current Medications Ondansetron HCl (Zofran Inj) 4 mg Q6H PRN IV NAUSEA AND/OR VOMITING; Start at 12:30 Acetaminophen (Tylenol Tab) 650 mg Q6H PRN PO PAIN LEVEL 1-3 OR FEVER Last administered on 12/04/16t 01:56; Admin Dose 650 MG; Start 11/26/16 at 12:30 Acetaminophen/ Hydrocodone Bitart ([place] (5/325)) 1 tab Q6H PRN PO MODERATE PAIN LEVEL 4-6; Start 11/26/16 at 12:30 Morphine Sulfate (morphine) 2 mg Q4H PRN IV SEVERE PAIN LEVEL 7-10; Start 11/26 at 12:30 Docusate Sodium (Colace) 100 mg Q12H PRN PO CONSTIPATION Last administered on 20:44; Admin Dose 100 MG; Start 11/26/16 at 12:30 Zolpidem Tartrate (Ambien) 5 mg QHS PRN PO SLEEP; Start 11/26/16 at 12:30 Aspirin (Aspirin) 81 mg DAILY PO Last administered on 12/04/16 08:23; Admin Dose 81 MG; Start 11/27/16 at 09:00 Gabapentin (Neurontin) 300 mg TID PO Last administered on 12/04/16 20:32; Admin Dose 300 MG; Start 11/26/16 at 13:00 Lisinopril (Zestril) 40 mg DAILY PO Last administered on 12/02/16 08:57; Admin Dose 40 MG; Start 11/26/16 at 12:30; Status Future Hold Metoprolol Succinate (Toprol Xl) 25 mg BID PO Last administered on 12/04/16 20 :45; Admin Dose 25 MG; Start 11/26/16 at 12:30 Nifedipine (Procardia Xl) 60 mg DAILY PO Last administered on 12/04/16 08:23; Admin Dose 60 MG; Start 11/26/16 at 12:30 Salmeterol Xinafoate/ Fluticasone (Advair 250/50 Diskus) 1 inh BID INH Last administered on 12/04/16 20:31; Admin Dose 1 INH; Start 11/26/16 at 21:00 Hydralazine HCl (Apresoline) 10 mg Q4H PRN IV SBP>170 Last administered on 11/28 04:05; Admin Dose 10 MG; Start 11/26/16 at 12:30 Miscellaneous Information 1 ea NOTE XX ; Start 11/26/16 at 12:30 Glucose (Glutose) 15 gm Q15M PRN PO DECREASED GLUCOSE; Start 11/26/16 at 12:30 Glucose (Glutose) 22.5 gm Q15M PRN PO DECREASED GLUCOSE; Start 11/26/16 at 12: 30 Dextrose (D50w Syringe) 25 ml Q15M PRN IV DECREASED GLUCOSE; Start 11/26/16 at 12:30 Dextrose (D50w Syringe) 50 ml Q15M PRN IV DECREASED GLUCOSE; Start 11/26/16 at 12:30 Glucagon (Glucagen) 1 mg Q15M PRN IM DECREASED GLUCOSE; Start 11/26/16 at 12:30 Glucose 15 gm 15 gm Q15M PRN BUCCAL DECREASED GLUCOSE; Start 11/26/16 at 12:30 Ceftriaxone Sodium 50 ml @ 100 mls/hr Q24H IVPB Last administered on 17:18; Admin Dose 100 MLS/HR; Start 11/26/16 at 17:00 Azithromycin (Zithromax 500mg/ NS (Pmx)) 250 ml @ 250 mls/hr Q24H IVPB Last administered on 12/04/16 18:17; Admin Dose 250 MLS/HR; Start 11/26/16 at 18:00 Diagnostic Test (Pha) (Accu-Chek) 1 ea 02 XX Last administered on 12/02/16 01: 16; Admin Dose 1 EA; Start 11/27/16 at 02:00 Heparin Sodium (Porcine) (Heparin (5000 Units/0.5 ml)) 5,000 unit BID SC Last administered on 12/04/16 20:34; Admin Dose 5,000 UNIT; Start 11/30/16 at 21:00 Famotidine (Pepcid) 20 mg BID PO Last administered on 12/04/16 20:32; Admin Dose 20 MG; Start 11/30/16 at 21:00 Ferrous Sulfate (Ferrous Sulfate (Ec)) 325 mg BID PO Last administered on 20:32; Admin Dose 325 MG; Start 12/01/16 at 21:00 Nifedipine (Procardia Xl) 30 mg HS PO Last administered on 12/04/16 20:32; Admin Dose 30 MG; Start 12/01/16 at 21:00 Insulin Glargine (Lantus) 36 unit QHS SC Last administered on 12/04/16 21:17; Admin Dose 36 UNIT; Start 12/03/16 at 21:00 Insulin Human NPH (Humulin N) 18 unit BID@08,20 SC Last administered on 7/28/ 17at 20:35; Admin Dose 18 UNIT; Start 12/04/16 at 20:00 NILES AYALA NP Dec 05, 2016 08:54
--- NOTE | 2016-12-05 10:06 | CONS ---
Date/Time of Note Date/Time of Note DATE: 12/05/16 TIME: 10:04 Assessment/Plan Assessment/Plan Additional Assessment/Plan Chest x-ray was reviewed from yesterday afternoon which is essentially unremarkable. Assessment and recommendations; 1. Patient admitted for CHF exacerbation with pleural effusion status post right thoracentesis. There has been marked clinical and radiological improvement. 2. Possibly superimposed bronchitis/bronchopneumonia with interval improvement as well. 3. History of hypertension and diabetes. Next Discontinue antibiotics. Continue other medications. Consider discharge. Consultation Date/Type/Reason Admit Date/Time Nov 26, 2016 at 08:55 Initial Consult Date 11/28/16 Type of Consultation: Pulmonary Referring Provider: JERMAINE TEJADA 24 HR Interval Summary Free Text/Dictation Patient condition is stable. Denies any shortness of breath, coughing, wheezing or sputum production. General exam; elderly male, awake and alert. Currently in no distress. Laying flat in bed. Exam/Review of Systems Vital Signs Vitals Vital Signs Date Time Temp Pulse Resp B/P Pulse Ox O2 Delivery O2 Flow Rate FiO2 12/05/16 08:18 72 12/05/16 08:04 20 98 21 12/05/16 07:31 98.0 157/74 12/03/16 19:35 Nasal Cannula 2.0 Intake and Output 12/04/16 12/04/16 12/05/16 15:00 23:00 07:00 Intake Total 950 ml 400 ml Output Total 1800 ml 1600 ml Balance -850 ml -1200 ml Exam HEENT exam; supple neck, no JVD. No lymphadenopathy. Midline trachea. No thyromegaly. Pharynx is clear. Chest exam; clear to auscultation. S1-S2 audible, no murmurs. Regular rhythm. Abdomen exam; protuberant. Nontender. No organomegaly. Bowel sounds audible. Extremity exam; no peripheral edema. Pulses 1+ bilaterally. SENIOR CARE SPECIALIST exam; no focal deficit. Results Result Diagram: 12/05/16 0604 12/05/16 0604 Results 24 hrs Laboratory Tests Test 12/04/16 11:41 12/04/16 17:11 12/04/16 20:30 12/05/16 02:07 Bedside Glucose 236 H 282 H 318 H 214 Test 12/05/16 06:04 12/05/16 08:19 12/05/16 08:59 White Blood Count 19.8 H Red Blood Count 4.64 L Hemoglobin 12.6 L Hematocrit 40.6 L Mean Corpuscular Volume 87.5 Mean Corpuscular Hemoglobin 27.2 L Mean Corpuscular Hemoglobin Concent 31.0 L Red Cell Distribution Width 14.0 Platelet Count 346 # Mean Platelet Volume 10.5 H Neutrophils % 61.9 Lymphocytes % 26.0 Monocytes % 9.5 Eosinophils % 0.2 Basophils % 0.2 Nucleated Red Blood Cells % 0.0 Neutrophils # 12.2 H Lymphocytes # 5.2 H Monocytes # 1.9 H Eosinophils # 0.0 Basophils # 0.0 Nucleated Red Blood Cells # 0.0 Sodium Level 144 Potassium Level 4.0 Chloride Level 96 L Carbon Dioxide Level 34 H Anion Gap 18 H Blood Urea Nitrogen 68 H Creatinine 1.20 Glucose Level 162 # Calcium Level 10.1 Phosphorus Level 4.1 Magnesium Level 2.1 Bedside Glucose 191 Lab Scanned Report REFERENCE LAB Medications Medications Current Medications Ondansetron HCl (Zofran Inj) 4 mg Q6H PRN IV NAUSEA AND/OR VOMITING; Start at 12:30 Acetaminophen (Tylenol Tab) 650 mg Q6H PRN PO PAIN LEVEL 1-3 OR FEVER Last administered on 12/04/16 01:56; Admin Dose 650 MG; Start 11/26/16 at 12:30 Acetaminophen/ Hydrocodone Bitart ([place] (5/325)) 1 tab Q6H PRN PO MODERATE PAIN LEVEL 4-6; Start 11/26/16 at 12:30 Morphine Sulfate (morphine) 2 mg Q4H PRN IV SEVERE PAIN LEVEL 7-10; Start 11/26 at 12:30 Docusate Sodium (Colace) 100 mg Q12H PRN PO CONSTIPATION Last administered on 20:44; Admin Dose 100 MG; Start 11/26/16 at 12:30 Zolpidem Tartrate (Ambien) 5 mg QHS PRN PO SLEEP; Start 11/26/16 at 12:30 Aspirin (Aspirin) 81 mg DAILY PO Last administered on 12/05/16 08:24; Admin Dose 81 MG; Start 11/27/16 at 09:00 Gabapentin (Neurontin) 300 mg TID PO Last administered on 12/05/16 08:24; Admin Dose 300 MG; Start 11/26/16 at 13:00 Lisinopril (Zestril) 40 mg DAILY PO Last administered on 12/02/16 08:57; Admin Dose 40 MG; Start 11/26/16 at 12:30; Status Future Hold Metoprolol Succinate (Toprol Xl) 25 mg BID PO Last administered on 12/05/16 08 :24; Admin Dose 25 MG; Start 11/26/16 at 12:30 Nifedipine (Procardia Xl) 60 mg DAILY PO Last administered on 12/05/16 08:25; Admin Dose 60 MG; Start 11/26/16 at 12:30 Salmeterol Xinafoate/ Fluticasone (Advair 250/50 Diskus) 1 inh BID INH Last administered on 12/05/16 08:27; Admin Dose 1 INH; Start 11/26/16 at 21:00 Hydralazine HCl (Apresoline) 10 mg Q4H PRN IV SBP>170 Last administered on 11/28 04:05; Admin Dose 10 MG; Start 11/26/16 at 12:30 Miscellaneous Information 1 ea NOTE XX ; Start 11/26/16 at 12:30 Glucose (Glutose) 15 gm Q15M PRN PO DECREASED GLUCOSE; Start 11/26/16 at 12:30 Glucose (Glutose) 22.5 gm Q15M PRN PO DECREASED GLUCOSE; Start 11/26/16 at 12: 30 Dextrose (D50w Syringe) 25 ml Q15M PRN IV DECREASED GLUCOSE; Start 11/26/16 at 12:30 Dextrose (D50w Syringe) 50 ml Q15M PRN IV DECREASED GLUCOSE; Start 11/26/16 at 12:30 Glucagon (Glucagen) 1 mg Q15M PRN IM DECREASED GLUCOSE; Start 11/26/16 at 12:30 Glucose 15 gm 15 gm Q15M PRN BUCCAL DECREASED GLUCOSE; Start 11/26/16 at 12:30 Ceftriaxone Sodium 50 ml @ 100 mls/hr Q24H IVPB Last administered on 17:18; Admin Dose 100 MLS/HR; Start 11/26/16 at 17:00 Azithromycin (Zithromax 500mg/ NS (Pmx)) 250 ml @ 250 mls/hr Q24H IVPB Last administered on 12/04/16 18:17; Admin Dose 250 MLS/HR; Start 11/26/16 at 18:00 Diagnostic Test (Pha) (Accu-Chek) 1 ea 02 XX Last administered on 12/02/16 01: 16; Admin Dose 1 EA; Start 11/27/16 at 02:00 Heparin Sodium (Porcine) (Heparin (5000 Units/0.5 ml)) 5,000 unit BID SC Last administered on 12/05/16 08:26; Admin Dose 5,000 UNIT; Start 11/30/16 at 21:00 Famotidine (Pepcid) 20 mg BID PO Last administered on 12/05/16 08:22; Admin Dose 20 MG; Start 11/30/16 at 21:00 Ferrous Sulfate (Ferrous Sulfate (Ec)) 325 mg BID PO Last administered on 08:24; Admin Dose 325 MG; Start 12/01/16 at 21:00 Nifedipine (Procardia Xl) 30 mg HS PO Last administered on 12/04/16 20:32; Admin Dose 30 MG; Start 12/01/16 at 21:00 Insulin Glargine (Lantus) 36 unit QHS SC Last administered on 12/04/16 21:17; Admin Dose 36 UNIT; Start 12/03/16 at 21:00 DAILY LARIOS Dec 05, 2016 10:06
--- NOTE | 2016-12-05 10:54 | CONS ---
Date/Time of Note Date/Time of Note DATE: 12/05/16 TIME: 10:52 Assessment/Plan Assessment/Plan Additional Assessment/Plan 1.CHF-diastolic chronic- Echo 12/01 EF 55-60/DD/MR/TR - better fluid status now 2.HTN - well Rx, con't med Rx, will adjust Rxa s needed 3.PLeural effusion- R sided s/p thoracentesis 12/02 - better now on CXR 4.HTN - well rx, con't med rx 5.DM- on meds, con't to keep euglycemic 6.Anemia - H/H satble - no bleeding no w 7. Renal failure 8. Copd Consultation Date/Type/Reason Admit Date/Time Nov 26, 2016 at 08:55 Initial Consult Date 11/28/16 Type of Consultation: Pulmonary Referring Provider: JERMAINE TEJADA 24 HR Interval Summary Free Text/Dictation No acute events - improved resp status - no significant ectopy on tele ROS: No fever, no chills, no nausea, no vomiting, no diarrhea/constipation No recent weight changes No chest pain, no PND, no orthopnea SOB better No dizziness, blurred vision No thirst, no heat or cold intolerance Exam/Review of Systems Vital Signs Vitals Vital Signs Date Time Temp Pulse Resp B/P Pulse Ox O2 Delivery O2 Flow Rate FiO2 12/05/16 08:18 72 12/05/16 08:04 20 98 21 12/05/16 07:31 98.0 157/74 12/03/16 19:35 Nasal Cannula 2.0 Intake and Output 12/04/16 12/04/16 12/05/16 15:00 23:00 07:00 Intake Total 950 ml 400 ml Output Total 1800 ml 1600 ml Balance -850 ml -1200 ml Exam General: WN/WD/NAD, AOx 2-3 HEENT: Unicetric/atraumatic/EOMI (follow commands) NECK: JVD elevated, no thyromegaly Lymph: no lymphadenopathy HEART: regular with no S3, II/ systolic murmur at apex LUNGS: Coarse sounds, post op ABD: soft, NT, ND, +BS : Intact Neuro: non focal SKIN: chronic changes EXT: trace edema Results Result Diagram: 12/05/16 0604 12/05/16 0604 Results 24 hrs Laboratory Tests Test 12/04/16 11:41 12/04/16 17:11 12/04/16 20:30 12/05/16 02:07 Bedside Glucose 236 H 282 H 318 H 214 Test 12/05/16 06:04 12/05/16 08:19 12/05/16 08:59 White Blood Count 19.8 H Red Blood Count 4.64 L Hemoglobin 12.6 L Hematocrit 40.6 L Mean Corpuscular Volume 87.5 Mean Corpuscular Hemoglobin 27.2 L Mean Corpuscular Hemoglobin Concent 31.0 L Red Cell Distribution Width 14.0 Platelet Count 346 # Mean Platelet Volume 10.5 H Neutrophils % 61.9 Lymphocytes % 26.0 Monocytes % 9.5 Eosinophils % 0.2 Basophils % 0.2 Nucleated Red Blood Cells % 0.0 Neutrophils # 12.2 H Lymphocytes # 5.2 H Monocytes # 1.9 H Eosinophils # 0.0 Basophils # 0.0 Nucleated Red Blood Cells # 0.0 Sodium Level 144 Potassium Level 4.0 Chloride Level 96 L Carbon Dioxide Level 34 H Anion Gap 18 H Blood Urea Nitrogen 68 H Creatinine 1.20 Glucose Level 162 # Calcium Level 10.1 Phosphorus Level 4.1 Magnesium Level 2.1 Bedside Glucose 191 Lab Scanned Report REFERENCE LAB Medications Medications Current Medications Ondansetron HCl (Zofran Inj) 4 mg Q6H PRN IV NAUSEA AND/OR VOMITING; Start at 12:30 Acetaminophen (Tylenol Tab) 650 mg Q6H PRN PO PAIN LEVEL 1-3 OR FEVER Last administered on 12/04/16 01:56; Admin Dose 650 MG; Start 11/26/16 at 12:30 Acetaminophen/ Hydrocodone Bitart ([place] (5/325)) 1 tab Q6H PRN PO MODERATE PAIN LEVEL 4-6; Start 11/26/16 at 12:30 Morphine Sulfate (morphine) 2 mg Q4H PRN IV SEVERE PAIN LEVEL 7-10; Start 11/26 at 12:30 Docusate Sodium (Colace) 100 mg Q12H PRN PO CONSTIPATION Last administered on 20:44; Admin Dose 100 MG; Start 11/26/16 at 12:30 Zolpidem Tartrate (Ambien) 5 mg QHS PRN PO SLEEP; Start 11/26/16 at 12:30 Aspirin (Aspirin) 81 mg DAILY PO Last administered on 12/05/16 08:24; Admin Dose 81 MG; Start 11/27/16 at 09:00 Gabapentin (Neurontin) 300 mg TID PO Last administered on 12/05/16 08:24; Admin Dose 300 MG; Start 11/26/16 at 13:00 Lisinopril (Zestril) 40 mg DAILY PO Last administered on 12/02/16 08:57; Admin Dose 40 MG; Start 11/26/16 at 12:30; Status Future Hold Metoprolol Succinate (Toprol Xl) 25 mg BID PO Last administered on 12/05/16 08 :24; Admin Dose 25 MG; Start 11/26/16 at 12:30 Nifedipine (Procardia Xl) 60 mg DAILY PO Last administered on 12/05/16 08:25; Admin Dose 60 MG; Start 11/26/16 at 12:30 Salmeterol Xinafoate/ Fluticasone (Advair 250/50 Diskus) 1 inh BID INH Last administered on 12/05/16 08:27; Admin Dose 1 INH; Start 11/26/16 at 21:00 Hydralazine HCl (Apresoline) 10 mg Q4H PRN IV SBP>170 Last administered on 11/28 04:05; Admin Dose 10 MG; Start 11/26/16 at 12:30 Miscellaneous Information 1 ea NOTE XX ; Start 11/26/16 at 12:30 Glucose (Glutose) 15 gm Q15M PRN PO DECREASED GLUCOSE; Start 11/26/16 at 12:30 Glucose (Glutose) 22.5 gm Q15M PRN PO DECREASED GLUCOSE; Start 11/26/16 at 12: 30 Dextrose (D50w Syringe) 25 ml Q15M PRN IV DECREASED GLUCOSE; Start 11/26/16 at 12:30 Dextrose (D50w Syringe) 50 ml Q15M PRN IV DECREASED GLUCOSE; Start 11/26/16 at 12:30 Glucagon (Glucagen) 1 mg Q15M PRN IM DECREASED GLUCOSE; Start 11/26/16 at 12:30 Glucose (Glutose) 15 gm Q15M PRN BUCCAL DECREASED GLUCOSE; Start 11/26/16 at 12 :30 Diagnostic Test (Pha) (Accu-Chek) 1 ea 02 XX Last administered on 12/02/16 01: 16; Admin Dose 1 EA; Start 11/27/16 at 02:00 Heparin Sodium (Porcine) (Heparin (5000 Units/0.5 ml)) 5,000 unit BID SC Last administered on 12/05/16 08:26; Admin Dose 5,000 UNIT; Start 11/30/16 at 21:00 Famotidine (Pepcid) 20 mg BID PO Last administered on 12/05/16 08:22; Admin Dose 20 MG; Start 11/30/16 at 21:00 Ferrous Sulfate (Ferrous Sulfate (Ec)) 325 mg BID PO Last administered on 08:24; Admin Dose 325 MG; Start 12/01/16 at 21:00 Nifedipine (Procardia Xl) 30 mg HS PO Last administered on 12/04/16 20:32; Admin Dose 30 MG; Start 12/01/16 at 21:00 Insulin Glargine (Lantus) 36 unit QHS SC Last administered on 12/04/16 21:17; Admin Dose 36 UNIT; Start 12/03/16 at 21:00 JOSE M ARRINGTON MD Dec 05, 2016 10:54
--- NOTE | 2016-12-05 11:56 | PDOCDIS ---
Discharge Instructions DIAGNOSIS Discharge Diagnosis Recurrent right-sided pleural effusion. COPD exacerbation. CONDITION Patient Condition: Stable HOME CARE INSTRUCTIONS: Special Diet: carb control FOLLOW UP/APPOINTMENTS Follow-up Plan Tiburcio Mariano MD Specialty: Internal Medicine Office Address: [address] [place] [address] [place], [place] [id number] Office OTHER ORDERS: Other Orders: 1. Take medications as per prescription. 2. Take a carbohydrate controlled diet. 3. Resume activities as tolerated. 4. Follow-up with your primary care physician 1 week. If you do not have a primary care physician, please call Dr. Tiburcio Mariano's office. 5. Please call 911 or go to the nearest emergency room if you have significant chest pain, significant shortness of breath, or any other unusual signs/ symptoms. NILES AYALA NP Dec 05, 2016 11:56
[2016-12-05] MEDS ORDERED: FER325 PO (12:01)
[2016-12-05] MEDS ORDERED: LANT3I SC (12:01)
[2016-12-05] MEDS ORDERED: FURO-110 PO (12:01)
[2016-12-05] MEDS ORDERED: NOVO3I SC (12:03)
--- NOTE | 2016-12-05 12:12 | CONS ---
DATE OF ADMISSION: 11/26/2016 DATE OF CONSULTATION: 11/27/2016 REASON FOR CONSULTATION: Shortness of breath. HISTORY OF PRESENT ILLNESS: The patient is a 61-year-old gentleman with multiple medical problems, including COPD, diabetes, hypertension, who presents with a several day history of increasing shortness of breath, orthopnea and PND. Denies any cough or sputum production. No fever or chills. He has a positive tobacco history, and patient had thoracentesis in the past for pleural effusions. The patient himself is a poor historian. PAST MEDICAL HISTORY: Includes COPD, diabetes mellitus. Recurrent right pleural effusion. Essential hypertension. SOCIAL HISTORY: Positive tobacco use, occasional alcohol. No history of drug use. ALLERGIES: NONE. FAMILY HISTORY: Noncontributory. MEDICATIONS: Per chart. REVIEW OF SYSTEMS: A 12 point Review of Systems is negative other than mentioned above. PHYSICAL EXAMINATION: GENERAL: The patient is a well-developed, obese, gentleman. Awake, alert and oriented, comfortable. Talking in full and complete sentences. VITAL SIGNS: Currently afebrile. Pulse is 98. Blood pressure 115/66. O2 saturation is 96 percent on 3 liters nasal cannula. NECK: Supple. No JVD or lymphadenopathy. HEART: S1, S2. No other sounds or murmurs. LUNGS: Diminished air entry bilaterally. ABDOMEN: The abdomen is obese, soft. Nontender. No guarding or rebound. EXTREMITIES: No cyanosis, clubbing or edema. NEUROLOGIC: Generalized weakness. LABORATORY DATA: White count 12.4, hemoglobin 10.5, platelets of 227,000. BUN 40, creatinine 1.03. A1C was 8.6. IMAGING: Chest x-ray shows interval worsening of right pleural effusion with subsequent consolidation. IMPRESSION: 1. Hypoxic respiratory failure, secondary to pleural effusion. 2. Possible underlying congestive cardiac failure. 3. History of tobacco use. 4. Differential for pleural effusion does include malignant process. 5. History of chronic obstructive pulmonary disease per chart. PLAN: The patient will require: 1. Pleurocentesis, right pleural effusion. 2. Pleural fluid studies. 3. Consider echocardiogram and gentle diuresis. 4. Continue diabetic medication, improve glycemic management. 5. DVT and GI prophylaxis. 6. Antibiotics for possible community acquired pneumonia, although this appears to be less likely cause of his dyspnea. Thank you, Dr. De La Cruz, for this consult. Dictated By: Willis Valdovinos MD /carlos/mckinley /Document#: [id number]
--- NOTE | 2016-12-05 13:27 | DS ---
Date/Time of Note Date/Time of Note DATE: 12/05/16 TIME: 13:22 Discharge Summary Admission/Discharge Info Admit Date/Time Nov 26, 2016 at 08:55 Discharge Date/Time Discharge Diagnosis 1. Acute respiratory failure. Hypoxic. 2. COPD exacerbation. 3. Acute on chronic diastolic heart failure. 4. Type 2 diabetes mellitus. Hemoglobin A1c 8.2. 5. Recurrent right-sided pleural effusion. 6. Anemia. Normocytic and hypochromic. 7. Iron deficiency. 8. Essential hypertension. 9. Acute nonoliguric kidney injury. Resolved. 10. Metabolic alkalosis. 11. Hyperdynamic left ventricular systolic function. Patient Condition: Stable Consults 1. Willis Valdovinos MD, Pulmonary. 2. Evangelista Fairbanks MD, Pulmonary. 3. Humble Yin MD, Cardiology. 4. Roderick Mariano MD, Nephrology. Procedures US Guided Right Thoracentesis on 11/28/2016 FINDINGS: Initial ultrasound demonstrates fluid in the right pleural space. Approximately 1.7 liters of serous fluid was aspirated and sent to the laboratory. IMPRESSION: 1. Satisfactory ultrasound-guided right thoracentesis. US Guided Right Thoracentesis on 12/02/2016 FINDINGS: Initial ultrasound demonstrates fluid in the right pleural space. Approximately 0.950 liters of serous fluid was aspirated and sent to the laboratory. IMPRESSION: 1. Satisfactory ultrasound-guided right thoracentesis. 2D Echocardiogram Conclusions 1. Hyperdynamic left ventricular systolic function. Normal left ventricular cavity size. Moderate concentric left ventricular hypertrophy. Ejection fraction is visually estimated at 60-65 %. Tissue Doppler/Mitral Doppler indices are consistent with impaired relaxation (Stage I diastolic dysfunction). 2. Mild mitral leaflet calcification. Mild mitral annular calcification. Trace mitral regurgitation. 3. Normal appearance of the tricuspid valve. Estimated peak PA systolic pressure 34 mmHg. There is mild tricuspid regurgitation. Hx of Present Illness Patient is a 61-year-old male with a history of COPD, diabetes with neuropathy as well as history of right-sided pleural effusion status post thoracentesis in the past. Patient presents with 4 days of worsening shortness of breath. He denies any chest pain, nausea vomiting or fever. Patient denies any other development of a pulmonary effusion since his admission for this issue in June of this year. He states that he continues to smoke, states that he uses his diabetic meds only when his sugars are high. The patient initially went to [facility] emergency room because of shortness of breath. The patient was transferred to [facility] for further management because of insurance reasons. Hospital Course The patient was admitted to inpatient telemetry floor. A pulmonology consult was obtained. The patient was started on inhaled bronchodilators. The patient was started on diuretics. The patient's chest x-ray that was done on 11/26/2016 showed interval worsening of pleural and/or parenchymal disease in the right mid and lower lung zone which may indicate increased right-sided pleural effusion. Consequently, the patient underwent a right-sided ultrasound-guided thoracentesis on 11/28/2016 with drainage of 1.7 L of serous fluid. Unfortunately, no serology or other studies were done on this fluid. The patient continued to have respiratory distress. It was concluded that the patient has underlying diastolic heart failure and also underlying COPD that is contributing to the patient's respiratory failure. The patient was started on tapering dose of steroids. The patient was maintained on supplemental oxygen. The patient underwent a repeat ultrasound- guided thoracentesis on 12/02/2016 with the drainage of approximately 1 L of serous fluid. Pathology of this fluid was negative for any malignancy. The patient's recurrent right-sided pleural effusion was concluded to be secondary to his underlying diastolic heart failure. Cardiology consult was obtained on this patient. The patient underwent a 2D echocardiogram that showed a hyperdynamic left ventricular systolic function with underlying stage I diastolic dysfunction. The patient's cardiac medications were adjusted by cardiology. The patient also went into acute kidney injury during this hospitalization. This could have been most probably secondary to hemodynamics versus over diuresis along with the use of nephrotoxic medications. Hence nephrology was involved in the patient's care. The patient's lisinopril, metformin, and Lasix was held with improvement the patient's renal function. The patient's renal function was improving, the patient was restarted on lower dose of diuretics. The patient has underlying essential hypertension. He was maintained on antihypertensives for the same. The patient has underlying type 2 diabetes mellitus. The patient's hemoglobin A1c was found to be 8.2. The patient was maintained on sliding scale insulin along with pre-meal insulin and basal insulin. The patient had uncontrolled blood sugars during this hospitalization because of the use of steroids. Steroids were coupled with NPH insulin for blood sugar control. The patient's insulin dosing had to be adjusted multiple times to obtain optimal blood sugar control. The patient was seen by community nutrition educator during this hospitalization. The patient was noticed to have anemia. The patient's iron panel showed iron deficiency. The patient was maintained on iron supplements. The patient had a stable but prolonged hospital course because of the patient's slow improvement in clinical condition, the need for multiple procedures and the need for coordination of care with multiple consultants. The patient was cleared by consultants to be discharged home. The patient denied any complaints at the time of discharge. Discharge Instructions 1. Take medications as per prescription. 2. Take a carbohydrate controlled diet. 3. Resume activities as tolerated. 4. Follow-up with your primary care physician 1 week. If you do not have a primary care physician, please call Dr. Tiburcio Mariano's office. 5. Please call 911 or go to the nearest emergency room if you have significant chest pain, significant shortness of breath, or any other unusual signs/ symptoms. The patient verbalized understanding of his discharge instructions. At this time I would like to thank all the consultants for seeing the patient and providing clinical recommendations. Case discussed with Dr. Gilmore. Home Meds Active Scripts Insulin Aspart* (Novolog Insulin Pen*) 100 Unit/Ml Soln, 12 UNIT SC WITH MEALS for 30 Days, #90 CU Prov:NILES AYALA NP 12/05/16 Insulin Glargine* (Lantus*) 100 Unit/Ml Soln, 36 UNIT SC QHS for 30 Days, #30 CU Prov:NILES AYALA NP 12/05/16 Furosemide* (Lasix*) 20 Mg Tablet, 20 MG PO BID, #60 TAB Prov:NILES AYALA NP 12/05/16 Ferrous Sulfate* (Ferrous Sulfate*) 325 Mg Tabec, 325 MG PO BID, #60 TAB Prov:NILES AYALA NP 12/05/16 Nifedipine* (Nifedipine ER*) 60 Mg Tablet.sa, 60 MG PO DAILY, #60 TAB.SA Prov:JOSE MAZARIEGOS 06/11/16 Salmeterol Xinaf/Fluticasone* (Advair*) 250-50 Diskus Inhaler, 1 INH INH BID, # 1 INHALER Prov:MIREILLE ROACH NP 04/16/16 Metoprolol Succinate* (Toprol XL*) 25 Mg Tab.sr.24h, 25 MG PO BID for 30 Days Prov:MIREILLE ROACH NP 04/16/16 Gabapentin* (Gabapentin*) 300 Mg Capsule, 300 MG PO TID for 30 Days, CAP Prov:NILES AYALA NP 02/12/16 Metformin Hcl (Glucophage) 500 Mg Tab, 1000 MG PO BID WITH MEALS for 30 Days, TAB Prov:BRIANDA TYLER 07/31/15 Albuterol Sulfate* (Proair HFA*) 8.5 Gm Hfa.aer.ad, 2 PUFF INH Q6 for SHORTNESS OF BREATH for 14 Days, INHALER Prov:NILES AYALA NP 06/20/15 Aspirin (Aspirin) 81 Mg Chew, 81 MG PO DAILY for 30 Days, TAB Prov:NILES AYALA NP 06/20/15 Discontinued Scripts Lisinopril* (Lisinopril*) 40 Mg Tablet, 40 MG PO DAILY, #60 TAB Prov:JOSE MAZARIEGOS 06/11/16 Furosemide* (Furosemide*) 40 Mg Tablet, 40 MG PO BID, #60 TAB Prov:JOSE MAZARIEGOS 06/11/16 Prednisone* (Prednisone*) 20 Mg Tab, 20 MG PO DAILY for 5 Days, TAB Prov:MIREILLE ROACH NP 04/16/16 Insulin Glargine* (Lantus*) 100 Unit/Ml Soln, 30 UNIT SC QHS for 30 Days okay to replace with vials if pen is not covered.provide 30day suplly of syringes,needles. Prov:MIREILLE ROACH NP 04/16/16 Follow-up Plan Follow-up with your primary care physician 1 week. Primary Care Provider Nevaeh Nicole Time spent on discharge: > 30 minutes Pending Labs Laboratory Tests Test 12/04/16 17:11 12/04/16 20:30 12/05/16 02:07 12/05/16 06:04 Bedside Glucose 282mg/dL (70-220) 318mg/dL (70-220) 214mg/dL (70-220) White Blood Count 19.810^3/ul (4.8-10.8) Red Blood Count 4.6410^6/ul (4.70-6.10) Hemoglobin 12.6g/dl (14.0-18.0) Hematocrit 40.6% (42.0-52.0) Mean Corpuscular Volume 87.5fl (82.0-101.0) Mean Corpuscular Hemoglobin 27.2pg (29.0-33.0) Mean Corpuscular Hemoglobin Concent 31.0g/dl (32.0-37.0) Red Cell Distribution Width 14.0% (11.5-14.5) Platelet Count 25425^3/UL (140-415) Mean Platelet Volume 10.5fl (7.4-10.4) Neutrophils % 61.9% (39.0-77.0) Lymphocytes % 26.0% (15.0-51.0) Monocytes % 9.5% (0.0-11.0) Eosinophils % 0.2% (0.0-7.0) Basophils % 0.2% (0.0-2.0) Nucleated Red Blood Cells % 0.0/100WBC (0.0-0.0) Neutrophils # 12.210^3/ul (1.6-7.5) Lymphocytes # 5.210^3/ul (0.8-2.9) Monocytes # 1.910^3/ul (0.3-0.9) Eosinophils # 0.010^3/ul (0.0-0.5) Basophils # 0.010^3/ul (0.0-0.1) Nucleated Red Blood Cells # 0.010^3/ul (0.0-0.0) Sodium Level 144mmol/L (135-144) Potassium Level 4.0mmol/L (3.5-5.1) Chloride Level 96mmol/L (97-110) Carbon Dioxide Level 34mmol/L (21-31) Anion Gap 18 (8-16) Blood Urea Nitrogen 68mg/dl (7-20) Creatinine 1.20mg/dl (0.61-1.24) Glucose Level 162mg/dl (70-220) Calcium Level 10.1mg/dl (8.4-10.2) Phosphorus Level 4.1mg/dl (2.5-4.9) Magnesium Level 2.1mg/dl (1.7-2.5) Test 12/05/16 08:19 12/05/16 08:59 12/05/16 12:09 Bedside Glucose 191mg/dL (70-220) 179mg/dL (70-220) Lab Scanned Report REFERENCE [id number] NILES AYALA NP Dec 05, 2016 13:27
--- NOTE | 2016-12-05 14:07 | CONS ---
Date/Time of Note Date/Time of Note DATE: 12/05/16 TIME: 14:05 Assessment/Plan Assessment/Plan Additional Assessment/Plan 1. acute kidney injury on chronic kidney disease. This is like secondary to over diuresis with the Lasix and metolazone. 2. Possible chronic kidney disease secondary to a diabetic Nephropathy 3. Severe metabolic alkalosis with bicarbonate of 42, secondary to over diuresis and compensatory for resp acidosis from COPD 4. Acute COPD exacerbation. 5. Possible diastolic heart failure with an echo short ejection fraction, 62 to 65, consistent with stage I diastolic dysfunction. 6. History of hyperlipidemia. 7. History of diabetes mellitus Plan: Cr 1.2,, HCO3 34- stable, improving expecign creatinine to improve lasix on discharge BP stable will follow up Consultation Date/Type/Reason Admit Date/Time Nov 26, 2016 at 08:55 Initial Consult Date 11/28/16 Type of Consultation: NEPHROLOGY Referring Provider: JERMAINE TEJADA Exam/Review of Systems Vital Signs Vitals Vital Signs Date Time Temp Pulse Resp B/P Pulse Ox O2 Delivery O2 Flow Rate FiO2 12/05/16 12:16 74 12/05/16 11:26 98.1 20 106/55 95 12/05/16 08:04 21 12/03/16 19:35 Nasal Cannula 2.0 Intake and Output 12/04/16 12/04/16 12/05/16 15:00 23:00 07:00 Intake Total 950 ml 400 ml Output Total 1800 ml 1600 ml Balance -850 ml -1200 ml Exam Constitutional: alert Psych: no complaints Head: normocephalic Respiratory: crackles/rales, diminished breath sounds Cardiovascular: regular rate and rhythm Gastrointestinal: bowel sounds, firm, non-tender, soft Musculoskeletal: other (1+ edema ) Neurological: MANAGER FINE DINING II-XII intact Results Result Diagram: 12/05/16 0604 12/05/16 0604 Results 24 hrs Laboratory Tests Test 12/04/16 17:11 12/04/16 20:30 12/05/16 02:07 12/05/16 06:04 Bedside Glucose 282 H 318 H 214 White Blood Count 19.8 H Red Blood Count 4.64 L Hemoglobin 12.6 L Hematocrit 40.6 L Mean Corpuscular Volume 87.5 Mean Corpuscular Hemoglobin 27.2 L Mean Corpuscular Hemoglobin Concent 31.0 L Red Cell Distribution Width 14.0 Platelet Count 346 # Mean Platelet Volume 10.5 H Neutrophils % 61.9 Lymphocytes % 26.0 Monocytes % 9.5 Eosinophils % 0.2 Basophils % 0.2 Nucleated Red Blood Cells % 0.0 Neutrophils # 12.2 H Lymphocytes # 5.2 H Monocytes # 1.9 H Eosinophils # 0.0 Basophils # 0.0 Nucleated Red Blood Cells # 0.0 Sodium Level 144 Potassium Level 4.0 Chloride Level 96 L Carbon Dioxide Level 34 H Anion Gap 18 H Blood Urea Nitrogen 68 H Creatinine 1.20 Glucose Level 162 # Calcium Level 10.1 Phosphorus Level 4.1 Magnesium Level 2.1 Test 12/05/16 08:19 12/05/16 08:59 12/05/16 12:09 Bedside Glucose 191 179 Lab Scanned Report REFERENCE LAB Medications Medications Current Medications Ondansetron HCl (Zofran Inj) 4 mg Q6H PRN IV NAUSEA AND/OR VOMITING; Start at 12:30 Acetaminophen (Tylenol Tab) 650 mg Q6H PRN PO PAIN LEVEL 1-3 OR FEVER Last administered on 12/04/16 01:56; Admin Dose 650 MG; Start 11/26/16 at 12:30 Acetaminophen/ Hydrocodone Bitart (Schuyler (5/325)) 1 tab Q6H PRN PO MODERATE PAIN LEVEL 4-6; Start 11/26/16 at 12:30 Morphine Sulfate (morphine) 2 mg Q4H PRN IV SEVERE PAIN LEVEL 7-10; Start 11/26 at 12:30 Docusate Sodium (Colace) 100 mg Q12H PRN PO CONSTIPATION Last administered on 20:44; Admin Dose 100 MG; Start 11/26/16 at 12:30 Zolpidem Tartrate (Ambien) 5 mg QHS PRN PO SLEEP; Start 11/26/16 at 12:30 Aspirin (Aspirin) 81 mg DAILY PO Last administered on 12/05/16 08:24; Admin Dose 81 MG; Start 11/27/16 at 09:00 Gabapentin (Neurontin) 300 mg TID PO Last administered on 12/05/16 12:38; Admin Dose 300 MG; Start 11/26/16 at 13:00 Lisinopril (Zestril) 40 mg DAILY PO Last administered on 12/02/16 08:57; Admin Dose 40 MG; Start 11/26/16 at 12:30; Status Future Hold Metoprolol Succinate (Toprol Xl) 25 mg BID PO Last administered on 12/05/16 08 :24; Admin Dose 25 MG; Start 11/26/16 at 12:30 Nifedipine (Procardia Xl) 60 mg DAILY PO Last administered on 12/05/16 08:25; Admin Dose 60 MG; Start 11/26/16 at 12:30 Salmeterol Xinafoate/ Fluticasone (Advair 250/50 Diskus) 1 inh BID INH Last administered on 12/05/16 08:27; Admin Dose 1 INH; Start 11/26/16 at 21:00 Hydralazine HCl (Apresoline) 10 mg Q4H PRN IV SBP>170 Last administered on 11/28 04:05; Admin Dose 10 MG; Start 11/26/16 at 12:30 Miscellaneous Information 1 ea NOTE XX ; Start 11/26/16 at 12:30 Glucose (Glutose) 15 gm Q15M PRN PO DECREASED GLUCOSE; Start 11/26/16 at 12:30 Glucose (Glutose) 22.5 gm Q15M PRN PO DECREASED GLUCOSE; Start 11/26/16 at 12: 30 Dextrose (D50w Syringe) 25 ml Q15M PRN IV DECREASED GLUCOSE; Start 11/26/16 at 12:30 Dextrose (D50w Syringe) 50 ml Q15M PRN IV DECREASED GLUCOSE; Start 11/26/16 at 12:30 Glucagon (Glucagen) 1 mg Q15M PRN IM DECREASED GLUCOSE; Start 11/26/16 at 12:30 Glucose (Glutose) 15 gm Q15M PRN BUCCAL DECREASED GLUCOSE; Start 11/26/16 at 12 :30 Diagnostic Test (Pha) (Accu-Chek) 1 ea 02 XX Last administered on 12/02/16 01: 16; Admin Dose 1 EA; Start 11/27/16 at 02:00 Heparin Sodium (Porcine) (Heparin (5000 Units/0.5 ml)) 5,000 unit BID SC Last administered on 12/05/16 08:26; Admin Dose 5,000 UNIT; Start 11/30/16 at 21:00 Famotidine (Pepcid) 20 mg BID PO Last administered on 12/05/16 08:22; Admin Dose 20 MG; Start 11/30/16 at 21:00 Ferrous Sulfate (Ferrous Sulfate (Ec)) 325 mg BID PO Last administered on 08:24; Admin Dose 325 MG; Start 12/01/16 at 21:00 Nifedipine (Procardia Xl) 30 mg HS PO Last administered on 12/04/16 20:32; Admin Dose 30 MG; Start 12/01/16 at 21:00 Insulin Glargine (Lantus) 36 unit QHS SC Last administered on 12/04/16 21:17; Admin Dose 36 UNIT; Start 12/03/16 at 21:00 BON GUERRERO MD Dec 05, 2016 14:07
--- NOTE | 2016-12-07 12:58 | CONS ---
DATE OF ADMISSION: 11/26/2016 DATE OF CONSULTATION: 12/01/2016 REASON FOR CONSULTATION: Congestive heart failure exacerbation. REQUESTING PHYSICIAN: Isaiah Mai MD from the hospitalist service. HISTORY OF PRESENT ILLNESS: The patient is a 61-year-old male with a history of COPD, diabetes mellitus, diastolic dysfunction on recent echo, pleural effusion, who initially presented with complaints of shortness of breath and per ER report, chest pain, although the patient denies chest pain to me. Initially upon arrival in the Emergency Department, temperature of 98, blood pressure 201/97, pulse 86, respirations 28, saturating 98 percent on 2 liters. White count 12.4, hemoglobin 10.5, platelet count 227. Sodium 142, potassium 4.8, creatinine 1.0, BUN 40, glucose 294, LDL 83, HDL 40. TSH 1.090. INR 1.1. The patient underwent a chest x-ray revealing worsening of pleural and/or parenchymal disease in the right mid and lower lungs, which may be attributable to right pleural effusion, worsening atelectasis and/or consolidation. Slight increase in bibasilar congestion and interstitial edema. The patient has no labs current on the chart for my review at this time. The patient underwent thoracentesis minus 1.7 liters from the right pleural space and subsequently admitted to the floor. Since being admitted to the floor, the patient has been placed on steroids, ongoing Lasix diuresis, and baseline blood pressure medication with Toprol, Zestril and Procardia. PAST MEDICAL HISTORY: As above in HPI. The patient's most recent echo of February 2016 revealing preserved EF of 60 percent. MEDICATIONS: Medications in the hospital include: 1. Ferrous sulfate 325 mg two times a day. 2. IV q.8h. 3. Heparin 5000 subcu two times a day. 4. Pepcid 20 mg two times a day. 5. Lantus subcu bedtime. 6. Lasix 40 mg IV two times a day. 7. Insulin sliding scale. 8. Metolazone. 9. Aspirin 81 mg daily. 10. Advair Diskus. 11. Azithromycin. 12. Metformin. 13. Ceftriaxone. 14. Gabapentin. 15. Zofran. 16. Tylenol. 17. Rogers. 18. Morphine. 19. Zestril 40 mg daily. 20. Toprol 25 mg p.o. two times a day. 21. Procardia XL 60 mg daily. 22. Duonebs. 23. Hydralazine p.r.n. ALLERGIES: NO KNOWN DRUG ALLERGIES. SOCIAL HISTORY: No current tobacco, ETOH, or illicit drug use. FAMILY HISTORY: No history of sudden cardiac or early CAD. REVIEW OF SYSTEMS: Reported in HPI. CONSTITUTIONAL: No fever or chills. PULMONARY: Positive shortness of breath. CARDIOVASCULAR: Reported chest pain. None currently. GI: No vomiting. : No hematuria. MUSCULOSKELETAL: No joint effusion. PSYCHIATRIC: The patient has depression. NEURO: No documented CVA. ENDOCRINE: Diabetes mellitus. PHYSICAL EXAMINATION: VITAL SIGNS: Temperature 98.3, blood pressure 167/60. Pulse 82. Respirations 18. Saturation 92 percent. GENERAL APPEARANCE: The patient is arousable. NECK: JVP approximately 9 cm enlarged. CHEST: Fair air movement bilaterally with mildly decreased breath sounds on the right side greater than left. HEART: Regular rate and rhythm. Normal S1, increased S2. 1/6 systolic murmur. Nondisplaced PMI. ABDOMEN: Positive bowel sounds. Soft. EXTREMITIES: Lower extremities with no edema. 1 plus pulses bilaterally, . LABORATORY: White count 11.5, hemoglobin 11.4, platelets count 262. Sodium 147, potassium 3.9, creatinine 3.1, BUN 55. TSH 1.09. INR 1.1. IMAGING STUDIES: Chest x-ray from 11/30/2016 revealing patchy, ill-defined opacities in mid and lower lungs bilaterally, small moderate right pleural effusion, moderate cardiomegaly. ELECTROCARDIOGRAM: No electrocardiogram available at this time. IMPRESSION: 1. Congestive heart failure exacerbation by previous echo, diastolic, acute on chronic. 2. Right pleural effusion. Status post thoracentesis. Follow up studies. 3. Hypertension, currently uncontrolled. 4. Chronic obstructive pulmonary disease exacerbation. 5. Diabetes mellitus. Uncontrolled blood sugars. 6. Anemia. 7. Hypernatremia. RECOMMENDATIONS: 1. At this time, would maintain the patient on telemetry monitoring to follow rate and rhythm closely. 2. Continue the patient on Lasix diuresis. Follow strict intake and output. Diurese closely. 3. Continue the patient on aspirin for prophylaxis of cardiac events. Has completed rule out for myocardial infarction. . Continue to monitor acute coronary syndrome and acute myocardial infarction. 4. Continue the patient's Zestril, Procardia and Toprol XL with further titration to improve systolic blood pressure control. 5. Continue the patient's steroids, bronchodilators, and antibiotic therapy at this time. 6. Follow up the patient's culture data as well as studies from pleural effusion for etiology. 7. Get 2D echo to reassess the patient's ejection fraction. Thanks for allowing me to take part in the care of this patient. I will continue to follow very closely with you for further recommendations during the patient's hospital course. Dictated By: Ahmet Wong /carlos/dragan /Document#: [id number] CC: Isaiah Mai MD;*End*
== END 2016-12-05 16:20 | disposition home or self-care (01) | DRG 190 ==
LOC: TEL 08:55
PROVIDERS: ADMIT Internal Medicine; ATTEND Internal Medicine
PROC: 0W993ZZ Drainage of Right Pleural Cavity, Percutaneous Approach (ICD-10-PCS; principal; 2016-11-28)
PROC: 0W993ZZ Drainage of Right Pleural Cavity, Percutaneous Approach (ICD-10-PCS; 2016-12-02)
DX: J44.1 Chronic obstructive pulmonary disease with (acute) exacerbation (principal); J96.01 Acute respiratory failure with hypoxia; I50.33 Acute on chronic diastolic (congestive) heart failure; J90 Pleural effusion, not elsewhere classified; N17.9 Acute kidney failure, unspecified; E87.3 Alkalosis; E11.9 Type 2 diabetes mellitus without complications; D50.9 Iron deficiency anemia, unspecified; I11.0 Hypertensive heart disease with heart failure; E11.40 Type 2 diabetes mellitus with diabetic neuropathy, unspecified; R60.1 Generalized edema; E66.01 Morbid (severe) obesity due to excess calories; F17.210 Nicotine dependence, cigarettes, uncomplicated
CPT/HCPCS: 32555; 71010; 76604; 76775; 76942; 80048; 80053; 80061; 81003; 82550; 82570; 82728; 82945; 82947; 82962; 83036; 83540; 83735; 84100; 84157; 84300; 84439; 84443; 84484; 84560; 85025; 85610; 87070; 87102; 87116; 88104; 88305; 89051; 89190; 93005; 93306; 94640; J1120; J1940; J0360; J0456; J0696; J1644; J1815; J2920; J2930; J7040

== ENCOUNTER 2017-02-12 01:14 | Inpatient (IN) | payer BC ==
[2017-02-11 09:20] VITALS: BP 137/74; RESP 20
[2017-02-12] VITALS (38 sets, daily range): BP systolic 75–166; BP diastolic 51–87; PULSE 64–80; RESP 16–24
[~2017-02-12] VITALS: Ht 172.7 cm; Wt 88.5 kg
[~2017-02-12 01:14] MED LIST changes: +FER325 PO; +FURO-110 PO; -FURO40TA4 PO; -LISI40TA9 PO; +METO-335 PO; -METO25TA7 PO; +NOVO3I SC; -PRED20TA PO
[2017-02-12] MEDS ORDERED: ALBUTEROL/IPRATROPIUM (NEB) 3 ML AMP HHN ONE (03:31)
[2017-02-12] MEDS ORDERED: FUROSEMIDE 40 MG INJ IV ONE (04:00)
[2017-02-12] MEDS ORDERED: DOCUSATE SODIUM 100 MG CAP PO PRN (04:30)
[2017-02-12] MEDS ORDERED: GLUCOSE GEL 15 GRAM TUBE PO PRN ×2 (04:30)
[2017-02-12] MEDS ORDERED: NACL 0.9% 3 ML SYG IV SCH (04:30)
[2017-02-12] MEDS ORDERED: DEXTROSE 50% 50 ML SYRINGE IV PRN ×2 (04:30)
[2017-02-12] MEDS ORDERED: GLUCAGON 1 MG INJ IM PRN (04:30)
[2017-02-12] MEDS ORDERED: GLUCOSE GEL 15 GRAM TUBE BUCCAL PRN (04:30)
[2017-02-12] MEDS ORDERED: ONDANSETRON 4 MG INJ IV PRN (04:30)
[2017-02-12] MEDS ORDERED: NITROGLYCERIN (SL) 0.4 MG TAB SL PRN (04:30)
[2017-02-12] MEDS ORDERED: FUROSEMIDE 20 MG TAB PO SCH (06:00)
[2017-02-12 07:13] LABS: CK-MB 2.45 ng/ml (0.0-2.4)
[2017-02-12] MEDS: morphine 2 MG INJ IV PRN (07:14)
[2017-02-12 07:18] LABS: TROPONIN-I 0.038 ng/ml (0.00-0.12)
[2017-02-12] MEDS ORDERED: ALBUTEROL 18 GM INHALER INH SCH (08:00)
--- NOTE | 2017-02-12 08:39 | HP ---
Date/Time of Note Date/Time of Note DATE: 02/12/17 TIME: 08:25 Assessment/Plan VTE Prophylaxis VTE Prophylaxis Intervention: SCD's Lines/Catheters IV Catheter Type (from [facility]): Peripheral IV Assessment/Plan Chief Complaint/Hosp Course This is a 61-year-old male being admitted to the telemetry floor for: #1 acute CHF exacerbation: Patient received initially Lasix the transferring facility, will give an additional dose of Lasix at this time. Check BNP. Echocardiogram. Strict I's and O's. Fluid restriction of 800 cc. Check 2D echocardiogram, consult cardiology. Will also order repeat chest x-ray two- view in the to assess the pleural effusion that was seen on cxr at the transferring hospital. #2 hypertension: Continue patient's home medication, monitor blood pressure #3 COPD: Continue patient home inhalers. This also could be a component of patient's current condition however there does appear to be congestion on chest x-ray. Will initiate steroids if indicated. Patient is currently not in any respiratory distress. #4 diabetes mellitus: Check hemoglobin A1c, insulin sliding scale, Lantus, hold metformin #5 DVT and GI prophylaxis: SCDs, acid james Further treatment will be implemented as per the clinical course Problems: HPI/ROS Admit Date/Time Admit Date/Time Feb 12, 2017 at 02:12 Hx of Present Illness Chief complaint: Shortness of breath 2 days. This is a 51-year-old male who was transferred from an outside facility with complaints of shortness of breath 2 days. patient apparently ran out of his Lasix medication 2 days ago. He started experiencing shortness of breath as well as lower extremity edema. He received Lasix at the transferring facility. Which resulted in improvement of his symptoms. Upon arrival after being transferred, patient does still have some bilateral expiratory wheezing. Does not have any lower extremity edema. Allergies: NKDA Medications: See MAR ROS Const: As per HPI Eyes : No pain discharge or redness or change in visual acuity ENT: No pain, sore throat, congestion, congestion, dysphagia or discharge Respiratory: As per HPI Cardiovascular: As per HPI GI : no change in appetite, abdominal pain, nausea, vomiting, diarrhea, constipation, or change in the color his stool Genitourinary: No dysuria, hematuria, flank pain , discharge or CVA tenderness Musculoskeletal: No joint pain, back pain, neck pain, restricted range of motion in neck or joints Skin: No rash, bruising or hives Neuro: No headache, dizziness, syncope, seizure, focal weakness Endocrine: No polyuria, polydipsia, temperature intolerance Psych: No hallucination, depression, anxiety or suicidal ideation PMH/Family/Social Past Medical History Hypertension, CHF, diabetes mellitus, COPD Past Surgical History Past Surgical Hx: no surgical history Family History Significant Family History: no pertinent family hx Social History Alcohol Use: sober (Quit 1 year ago) Smoking Status: Current every day smoker (1 pack per day 25 years) Drug Use: none Exam/Review of Systems Vital Signs Vitals Vital Signs Date Time Temp Pulse Resp B/P Pulse Ox O2 Delivery O2 Flow Rate FiO2 02/12/17 07:55 98.1 75 20 166/79 98 02/12/17 06:05 Nasal Cannula 4.0 Intake and Output 02/11/17 02/11/17 02/12/17 15:00 23:00 07:00 Intake Total 200 ml Output Total 400 ml Balance -200 ml Exam Exam I did 516 Const: Negative for fever, chills, weight gain or weight loss, fatigue , or diaphoresis Eyes : No pain discharge or redness or change in visual acuity ENT: No pain, sore throat, congestion, congestion, dysphagia or discharge Respiratory: No shortness of breath, cough, sputum, wheezing, or pleuritic pain Cardiovascular: No chest pain, palpitation, PND, or edema GI : no change in appetite, abdominal pain, nausea, vomiting, diarrhea, constipation, or change in the color his stool Genitourinary: No dysuria, hematuria, flank pain , discharge or CVA tenderness Musculoskeletal: No joint pain, back pain, neck pain, restricted range of motion in neck or joints Skin: No rash, bruising or hives Neuro: No headache, dizziness, syncope, seizure, focal weakness Endocrine: No polyuria, polydipsia, temperature intolerance Psych: No hallucination, depression, anxiety or suicidal ideation General: Patient is well-developed well-nourished The patient is alert oriented -3 lying comfortably in bed. HEENT: Atraumatic, normocephalic. The pupils are equal, round and reactive. Extraocular motor are intact Neck: Supple with full range of motion. No rigidity or meningismus Chest: Nontender Lungs: Bilateral crackles and wheezing on exam greater on the right than the left Heart: Normal S1-S2, Regular rhythm and rate. No murmur, S3, or S4 Abdomen: Soft , nontender, nondistended , bowel sounds are present. No guarding no rebound tenderness , No masses or organomegaly. No costovertebral temporal angle mass Extremities: Normal to inspection, no edema no cyanosis Neurologic: Normal mental status, speech normal, cranial nerves II through XII are intact, motor and sensory are intact, no focal weakness Additional Comments Pertinent laboratory findings from transferring facility. Troponin first set: 0.05 Lactate 1.3 Chest x-ray: Right right-sided large pleural effusion, most likely CHF Medications Medications Current Medications Ferrous Sulfate (Ferrous Sulfate (Ec)) 325 mg BID PO ; Start 02/12/17 at 09:00 Gabapentin (Neurontin) 300 mg TID PO ; Start 02/12/17 at 09:00 Insulin Glargine (Lantus) 36 unit QHS SC ; Start 02/12/17 at 21:00 Metoprolol Succinate (Toprol Xl) 25 mg BID PO ; Start 02/12/17 at 09:00 Nifedipine (Procardia Xl) 60 mg DAILY PO ; Start 02/12/17 at 09:00 Salmeterol Xinafoate/ Fluticasone (Advair 250/50 Diskus) 1 inh BID INH ; Start 02/12/17 at 09:00 Miscellaneous Information 1 ea NOTE XX ; Start 02/12/17 at 04:30 Glucose (Glutose) 15 gm Q15M PRN PO DECREASED GLUCOSE; Start 02/12/17 at 04:30 Glucose (Glutose) 22.5 gm Q15M PRN PO DECREASED GLUCOSE; Start 02/12/17 at 04: 30 Dextrose (D50w Syringe) 25 ml Q15M PRN IV DECREASED GLUCOSE; Start 02/12/17 at 04:30 Dextrose (D50w Syringe) 50 ml Q15M PRN IV DECREASED GLUCOSE; Start 02/12/17 at 04:30 Glucagon (Glucagen) 1 mg Q15M PRN IM DECREASED GLUCOSE; Start 02/12/17 at 04:30 Glucose (Glutose) 15 gm Q15M PRN BUCCAL DECREASED GLUCOSE; Start 02/12/17 at 04 :30 Ondansetron HCl (Zofran Inj) 4 mg Q6H PRN IV NAUSEA AND/OR VOMITING; Start 02/12/17 at 04:30 Aspirin (Aspirin) 81 mg DAILY PO ; Start 02/12/17 at 09:00 Nitroglycerin (Nitroglycerin (Sl Tab) 0.4 Mg) 1 tab Q5M PRN SL CHEST PAIN; Start 02/12/17 at 04:30 Acetaminophen (Tylenol Tab) 650 mg Q6H PRN PO PAIN LEVEL 1-3 OR FEVER; Start 02/12/17 at 04:30 Morphine Sulfate (morphine) 2 mg Q4H PRN IV PAIN LEVEL 7-10 Last administered on 02/12/17t 07:14; Admin Dose 2 MG; Start 02/12/17 at 04:30 Docusate Sodium (Colace) 100 mg Q12H PRN PO CONSTIPATION; Start 02/12/17 at 04: 30 Bisacodyl (Dulcolax) 5 mg DAILY PRN PO CONSTIPATION; Start 02/12/17 at 04:30 Famotidine (Pepcid) 20 mg Q12 PO ; Start 02/12/17 at 09:00 BRENDA CHAVEZ Feb 12, 2017 08:37
[2017-02-12] MEDS: FAMOTIDINE 20 MG TAB PO SCH ×2 (08:59→21:00)
[2017-02-12] MEDS: FERROUS SULFATE (EC) 325 MG TAB PO SCH ×2 (08:59→21:00)
[2017-02-12] MEDS: NIFEdipine (XL) 60 MG TAB PO SCH (08:59)
[2017-02-12] MEDS: GABAPENTIN 300 MG CAP PO SCH ×3 (08:59→21:00)
[2017-02-12] MEDS ORDERED: ASPIRIN 81 MG TAB PO SCH (09:00)
[2017-02-12] MEDS: SALMETEROL/FLUTICASONE 250/50 INHA INH SCH ×2 (09:00→21:00)
[2017-02-12] MEDS: ASPIRIN 81 MG TAB PO SCH (09:00)
[2017-02-12] MEDS ORDERED: METOPROLOL (XL) 25 MG TAB PO SCH (09:00)
[2017-02-12] MEDS: INSULIN ASPART [NOVOLOG] 3 ML PEN SC SCH ×5 (09:02→21:04)
[2017-02-12 11:28] LABS: TROPONIN-I 0.018 ng/ml (0.00-0.12)
[2017-02-12 11:29] LABS: CK-MB 1.97 ng/ml (0.0-2.4)
[2017-02-12] MEDS ORDERED: ALBUTEROL/IPRATROPIUM (NEB) 3 ML AMP HHN PRN (12:30)
[2017-02-12] MEDS ORDERED: LEVOFLOXACIN 500MG/D5W (PMX) 100 ML IVPB SCH (13:00)
[2017-02-12] MEDS: ALBUTEROL/IPRATROPIUM (NEB) 3 ML AMP HHN SCH ×2 (14:28→19:11)
[2017-02-12 16:24] LABS: AADO2 Arterial 280.4 mmHg (7.0-24.0); Arterial Base Excess 4.8 mmol/L (-3.0-3); Arterial COHb 0.3 % (0.0-3.0); Arterial Fraction of Oxyhgb 95.1 % (93.0-99.0); Arterial HCO3 32.3 mmol/L (22.0-26.0); Arterial MetHb 0.2 % (0.0-1.5); Arterial Total Hemglobin 11.1 g/dl (12.0-18.0); MODE MASK - SIMPLE
[2017-02-12] MEDS ORDERED: SOD CHLORIDE 0.9% 250 ML IV ONE ×2 (16:30)
[2017-02-12] MEDS ORDERED: NORepinephrine 8MG/250 ML (PMX 250 ML IV SCH (17:00)
[2017-02-12 18:11] LABS: CALCIUM 8.4 mg/dl (8.4-10.2); CREATININE 1.56 mg/dl (0.61-1.24); POTASSIUM 4.1 mmol/L (3.5-5.1)
--- NOTE | 2017-02-12 18:18 | RADRPT ---
PROCEDURE: XR Chest. CLINICAL INDICATION: Shortness of breath. TECHNIQUE: Two views. Frontal and lateral. COMPARISON: 12/04/2016. FINDINGS: There is right mid and lower zone air space disease consistent with atelectasis or pneumonia. The left lung is clear. The heart is enlarged. There is calcification in the aorta consistent with atherosclerosis. There is a moderate right pleural effusion. There is no left pleural effusion. There is no pneumothorax. IMPRESSION: 1. Right mid and lower lung zone airspace disease consistent with atelectasis or pneumonia. 2. Moderate right pleural effusion. 3. Cardiomegaly and atherosclerosis. RPTAT: QQ .Kayden Cervantes MD, MD Date Time Electronically viewed and signed by .Kayden Cervantes MD, on 02/12/2017 18:18 .R/
--- NOTE | 2017-02-12 18:39 | QN ---
Documentation Comment The RN called because of persistent hypotension and hypoxemia. The patient was noticed to be in significant respiratory distress. It was unable to give any fluid boluses for this patient since the patient had evidence of fluid overload. The patient's chest x-ray revealed recurrent right sided pleural effusion. Hence a stat right-sided thoracentesis was ordered. However, this was not done because of nonclinical reasons. While, the patient's ABG showed respiratory acidosis with CO2 retention. It was felt that the patient is deteriorating and hence the patient was moved to the intensive care unit for close monitoring. The case was discussed with the patient's supervisor beet end and bander operator who agreed with the patient's transfer to the intensive care unit. The patient to be started on NIPPV. Case discussed with Dr. Gonzalez. NILES AYALA NP Feb 12, 2017 18:39
[2017-02-12 18:59] LABS: INR 1.14; PROTIME 14.6 Sec (12.2-14.2); PT RATIO 1.1
[2017-02-12 19:00] LABS: PARTIAL THROMBOPLASTIN TIME 38.8 Sec (25.0-35.0)
[2017-02-12] MEDS: INSULIN GLARGINE [LANtus] 3 ML PEN SC SCH (21:03)
[2017-02-12 21:40] LABS: AADO2 Arterial 149.1 mmHg (7.0-24.0); Allen Test ACCEPTAB; Arterial Base Excess 3.9 mmol/L (-3.0-3); Arterial COHb 0.1 % (0.0-3.0); Arterial HCO3 30.3 mmol/L (22.0-26.0); Arterial MetHb 0.2 % (0.0-1.5); Arterial Total Hemglobin 11.6 g/dl (12.0-18.0); Blood Gas PS 12; MODE MASK - BIPAP
[2017-02-13] VITALS (52 sets, daily range): BP systolic 107–157; BP diastolic 63–90; PULSE 63–86; RESP 13–27
[2017-02-13 01:49] LABS: Blood Gas IEPAP 18/6
[2017-02-13] MEDS: ACCU-CHEK XX SCH ×2 (02:19)
[2017-02-13 05:11] LABS: BASOPHILS % 0.1 % (0.0-2.0); EOSINOPHILS # 0.1 10^3/ul (0.0-0.5); HEMATOCRIT 32.9 % (42.0-52.0); HEMOGLOBIN 10.4 g/dl (14.0-18.0); LYMPHOCYTES # 3.2 10^3/ul (0.8-2.9); LYMPHOCYTES % 38.3 % (15.0-51.0); MEAN CORPUSCULAR HGB CONC 31.6 g/dl (32.0-37.0); MEAN CORPUSCULAR VOLUME 88.4 fl (82.0-101.0); MEAN PLATELET VOLUME 10.4 fl (7.4-10.4); MONOCYTE # 0.6 10^3/ul (0.3-0.9); MONOCYTES % 7.7 % (0.0-11.0); NEUTROPHIL # 4.4 10^3/ul (1.6-7.5); NEUTROPHILS % 52.7 % (39.0-77.0); PLATELET COUNT 228 10^3/UL (140-415); RED BLOOD COUNT 3.72 10^6/ul (4.70-6.10); RED CELL DISTRIBUTION WIDTH 13.2 % (11.5-14.5); WHITE BLOOD COUNT 8.3 10^3/ul (4.8-10.8)
[2017-02-13 05:19] LABS: ALBUMIN 3.3 g/dl (3.3-4.9); ALBUMIN/GLOBULIN RATIO 0.86; BILIRUBIN,INDIRECT 0.4 mg/dl (0-1.1); BILIRUBIN,TOTAL 0.4 mg/dl (0.2-1.3); CALCIUM 8.8 mg/dl (8.4-10.2); CHOL/HDL RATIO 6.1 RATIO; CREATININE 1.39 mg/dl (0.61-1.24); MAGNESIUM 1.8 mg/dl (1.7-2.5); POTASSIUM 3.7 mmol/L (3.5-5.1); TOTAL PROTEIN 7.1 g/dl (6.1-8.1)
[2017-02-13 05:22] LABS: INR 1.09; PROTIME 14.1 Sec (12.2-14.2); PT RATIO 1.1
[2017-02-13 05:31] LABS: CK-MB 1.5 ng/ml (0.0-2.4); TROPONIN-I 0.035 ng/ml (0.00-0.12)
[2017-02-13 05:49] LABS: THYROID STIMULATING HORMONE 0.823 MIU/L (0.465-4.680)
[2017-02-13] MEDS: INSULIN ASPART [NOVOLOG] 3 ML PEN SC SCH ×7 (07:35→20:43)
[2017-02-13] MEDS: ALBUTEROL/IPRATROPIUM (NEB) 3 ML AMP HHN SCH ×3 (08:06→20:20)
--- NOTE | 2017-02-13 08:58 | PN ---
Date/Time of Note Date/Time of Note DATE: 02/13/17 TIME: 08:55 Assessment/Plan VTE Prophylaxis VTE Prophylaxis Intervention: heparin Lines/Catheters IV C[facility]ter Type (from [facility]): Peripheral IV Assessment/Plan Chief Complaint/Hosp Course 1. Acute respiratory failure. Hypoxic and hypercapnic. Secondary to COPD exacerbation and diastolic heart failure long with right sided pleural effusion. Continue inhaled bronchodilators. NIPPV as indicated. The patient being followed by pulmonology. 2. Episodic hypotension that required IV pressors. Currently off pressors. Etiology unclear. Cardiology to evaluate the patient. 3. Recurrent right-sided pleural effusion. Status post prior thoracenteses. Ultrasound-guided thoracentesis ordered. 4. Anemia. Normocytic and hypochromic. Continue the patient on iron supplements. 5. Essential hypertension. Antihypertensives on hold because of hypotension. 6. Acute on chronic kidney disease. Nephrology to follow the patient. 7. CHF exacerbation. Acute on chronic. Diastolic heart failure. Latest 2D echo showing EF of 60-65%. Being followed by cardiology. Medical management as per cardiology. 8. Nicotine use. Cessation advised. 9. Fluids, electrolytes, and nutrition. Carbohydrate controlled diet once the patient is completely awake and alert. 10. DVT prophylaxis with subcutaneous heparin. 11. Plan. Continue inhaled bronchodilators. Wean off noninvasive positive pressure ventilation as indicated. Await right-sided thoracentesis. Discussed with Dr. Gonzalez. Plan of care was explained to the patient's spouse who was at the bedside. Critical CARE time: 35 minutes. Problems: Subjective 24 Hr Interval Summary Free Text/Dictation The patient is off IV Levophed. Blood pressure stable. Remains on noninvasive positive pressure ventilation. Verbalized feeling "so-so." Exam/Review of Systems Vital Signs Vitals Vital Signs Date Time Temp Pulse Resp B/P Pulse Ox O2 Delivery O2 Flow Rate FiO2 02/13/17 08:07 67 100 30 02/13/17 08:07 22 02/13/17 08:00 97.5 144/74 BIPAP 02/12/17 17:15 10.0 Intake and Output 02/12/17 02/12/17 02/13/17 15:00 23:00 07:00 Intake Total 684.476 ml 11.375 ml Output Total 1200 ml 250 ml Balance -515.524 ml -238.625 ml Exam General: Obese 61 year-old male lying in bed in with a BiPAP mask on. HEENT: Normocephalic, atraumatic. Eyes: Anicteric sclerae, conjunctivae clear. ENT: Nasal septum midline, oral mucosa moist. Neck supple, no JVD noticed. Respiratory: Bilaterally diminished breath sounds. On noninvasive positive pressure ventilation. Scattered rhonchi. Cardiovascular: S1, S2 heard. No murmurs or gallops. Abdomen: Soft, nontender, and nondistended. Bowel sounds positive in all 4 quadrants. Genitourinary: Deferred. Extremities: No cyanosis, no clubbing, trace B/L pedal edema. Peripheral pulses palpable. Neurologic: The patient is somnolent. Wakes up to call and answers questions. Skin: Normal skin turgor. No skin rashes. Results Result Diagram: 02/13/1743102/13/17431 Results 24 hrs Laboratory Tests Test 02/12/17 08:58 02/12/17 10:26 02/12/17 11:52 02/12/17 16:00 Bedside Glucose 192 178 Creatine Kinase 69 Creatine Kinase Index 2.9 Creatinine Kinase MB (Mass) 1.97 Troponin I 0.018 Blood Gas Specimen Source Blood arterial Arterial Blood Date Drawn 02/12/2017 4:10:58 PM Arterial Blood pH (Temp corrected) 7.325 L Arterial Blood pCO2 (Temp correct) 63.4 H Arterial Blood pO2 (Temp corrected) 85.0 Arterial Blood HCO3 32.3 H Arterial Blood Base Excess 4.8 H Arterial Blood Oxygen Saturation 95.6 Rikki Test N/A Arterial Blood Gas Puncture Site LB Arterial Blood Carboxyhemoglobin 0.3 Arterial Blood Methemoglobin 0.2 Blood Gas A-a O2 Differential 280.4 H Oxyhemoglobin Percent 95.1 Total Hemoglobin 11.1 L Blood Gas Temperature 37.0 Blood Gas Modality MASK - SIMPLE FiO2 61.0 Blood Gas Notified Whom CW Blood Gas Notified Time 02/12/2017 4:23:52 PM Test 02/12/17 16:44 02/12/17 16:50 02/12/17 18:53 02/12/17 20:20 Bedside Glucose 166 166 201 Prothrombin Time 14.6 H Prothrombin Time Ratio 1.1 INR International Normalized Ratio 1.14 Activated Partial Thromboplast Time 38.8 H Sodium Level 140 Potassium Level 4.1 Chloride Level 99 Carbon Dioxide Level 33 H Anion Gap 12 Blood Urea Nitrogen 26 H Creatinine 1.56 H Glucose Level 160 Calcium Level 8.4 Test 02/12/17 21:00 02/13/17 02:13 02/13/17 04:32 02/13/17 08:11 Blood Gas Specimen Source Blood arterial Arterial Blood Date Drawn 02/12/2017 9:21:00 PM Arterial Blood pH (Temp corrected) 7.366 Arterial Blood pCO2 (Temp correct) 54.1 H Arterial Blood pO2 (Temp corrected) 73.9 L Arterial Blood HCO3 30.3 H Arterial Blood Base Excess 3.9 H Arterial Blood Oxygen Saturation 94.3 L Rikki Test ACCEPTAB Arterial Blood Gas Puncture Site Right Radial Arterial Blood Carboxyhemoglobin 0.1 Arterial Blood Methemoglobin 0.2 Blood Gas A-a O2 Differential 149.1 H Oxyhemoglobin Percent 94.0 Total Hemoglobin 11.6 L Blood Gas Temperature 37.0 Blood Gas Respiration Rate 19.0 Blood Gas Actual Respiration Rate 21 Blood Gas Modality MASK - BIPAP FiO2 40.0 Blood Gas Tidal Volume 328.0 Blood Gas High PEEP Setting 18.0 Blood Gas Low PEEP Setting 6.0 Blood Gas Pressure Support 12 Blood Gas IPAP/EPAP Ratio 25/10 Blood Gas Notified Whom R Audra Blood Gas Notified Time 02/12/2017 9:32:00 PM Bedside Glucose 190 71 White Blood Count 8.3 # Red Blood Count 3.72 L Hemoglobin 10.4 L Hematocrit 32.9 L Mean Corpuscular Volume 88.4 Mean Corpuscular Hemoglobin 28.0 L Mean Corpuscular Hemoglobin Concent 31.6 L Red Cell Distribution Width 13.2 Platelet Count 228 # Mean Platelet Volume 10.4 Neutrophils % 52.7 Lymphocytes % 38.3 Monocytes % 7.7 Eosinophils % 1.0 Basophils % 0.1 Nucleated Red Blood Cells % 0.0 Neutrophils # 4.4 Lymphocytes # 3.2 H Monocytes # 0.6 Eosinophils # 0.1 Basophils # 0.0 Nucleated Red Blood Cells # 0.0 Prothrombin Time 14.1 Prothrombin Time Ratio 1.1 INR International Normalized Ratio 1.09 Activated Partial Thromboplast Time 34.0 Sodium Level 141 Potassium Level 3.7 Chloride Level 101 Carbon Dioxide Level 33 H Anion Gap 11 Blood Urea Nitrogen 31 H Creatinine 1.39 H Glucose Level 83 # Hemoglobin A1c 10.5 H Calcium Level 8.8 Magnesium Level 1.8 Total Bilirubin 0.4 Direct Bilirubin 0.00 Indirect Bilirubin 0.4 Aspartate Amino Transf (AST/SGOT) 23 Alanine Aminotransferase (ALT/SGPT) 37 Alkaline Phosphatase 66 Creatine Kinase 46 Creatine Kinase Index 3.3 Creatinine Kinase MB (Mass) 1.50 Troponin I 0.035 Total Protein 7.1 Albumin 3.3 Globulin 3.80 H Albumin/Globulin Ratio 0.86 Triglycerides Level 90 Cholesterol Level 136 LDL Cholesterol, Calculated 96 HDL Cholesterol 22 L Cholesterol/HDL Ratio 6.1 Thyroid Stimulating Hormone (TSH) 0.823 Free Thyroxine 1.32 Test 02/13/17 08:50 Bedside Glucose 105 Medications Medications Current Medications Ferrous Sulfate (Ferrous Sulfate (Ec)) 325 mg BID PO Last administered on 21:00; Admin Dose 325 MG; Start 02/12/17 at 09:00 Gabapentin (Neurontin) 300 mg TID PO Last administered on 02/12/17 21:00; Admin Dose 300 MG; Start 02/12/17 at 09:00 Insulin Glargine (Lantus) 36 unit QHS SC Last administered on 02/12/17 21:03; Admin Dose 36 UNIT; Start 02/12/17 at 21:00 Metoprolol Succinate (Toprol Xl) 25 mg BID PO Last administered on 02/12/17 08 :59; Admin Dose 25 MG; Start 02/12/17 at 09:00; Status Future Hold Nifedipine (Procardia Xl) 60 mg DAILY PO Last administered on 02/12/17 08:59; Admin Dose 60 MG; Start 02/12/17 at 09:00; Status Future Hold Salmeterol Xinafoate/ Fluticasone (Advair 250/50 Diskus) 1 inh BID INH Last administered on 02/12/17 21:00; Admin Dose 1 INH; Start 02/12/17 at 09:00 Miscellaneous Information 1 ea NOTE XX ; Start 02/12/17 at 04:30 Glucose (Glutose) 15 gm Q15M PRN PO DECREASED GLUCOSE; Start 02/12/17 at 04:30 Glucose (Glutose) 22.5 gm Q15M PRN PO DECREASED GLUCOSE; Start 02/12/17 at 04: 30 Dextrose (D50w Syringe) 25 ml Q15M PRN IV DECREASED GLUCOSE Last administered on 10/7/17at 08:18; Admin Dose 25 ML; Start 02/12/17 at 04:30 Dextrose (D50w Syringe) 50 ml Q15M PRN IV DECREASED GLUCOSE; Start 02/12/17 at 04:30 Glucagon (Glucagen) 1 mg Q15M PRN IM DECREASED GLUCOSE; Start 02/12/17 at 04:30 Glucose (Glutose) 15 gm Q15M PRN BUCCAL DECREASED GLUCOSE; Start 02/12/17 at 04 :30 Ondansetron HCl (Zofran Inj) 4 mg Q6H PRN IV NAUSEA AND/OR VOMITING; Start 02/12/17 at 04:30 Aspirin (Aspirin) 81 mg DAILY PO Last administered on 02/12/17 09:00; Admin Dose 81 MG; Start 02/12/17 at 09:00 Nitroglycerin (Nitroglycerin (Sl Tab) 0.4 Mg) 1 tab Q5M PRN SL CHEST PAIN; Start 02/12/17 at 04:30 Acetaminophen (Tylenol Tab) 650 mg Q6H PRN PO PAIN LEVEL 1-3 OR FEVER; Start 02/12/17 at 04:30 Morphine Sulfate (morphine) 2 mg Q4H PRN IV PAIN LEVEL 7-10 Last administered on 02/12/17 07:14; Admin Dose 2 MG; Start 02/12/17 at 04:30 Docusate Sodium (Colace) 100 mg Q12H PRN PO CONSTIPATION; Start 02/12/17 at 04: 30 Bisacodyl (Dulcolax) 5 mg DAILY PRN PO CONSTIPATION; Start 02/12/17 at 04:30 Famotidine (Pepcid) 20 mg Q12 PO Last administered on 02/12/17 21:00; Admin Dose 20 MG; Start 02/12/17 at 09:00 Diagnostic Test (Pha) (Accu-Chek) 1 ea 02 XX Last administered on 02/13/17 02: 19; Admin Dose 1 EA; Start 02/13/17 at 02:00 Diagnostic Test (Pha) 1 ea 1 ea 02 XX Last administered on 02/13/17 02:19; Admin Dose 1 EA; Start 02/13/17 at 02:00 Levofloxacin/ Dextrose 100 ml @ 100 mls/hr Q24H IVPB Last administered on 02/12 12:42; Admin Dose 100 MLS/HR; Start 02/12/17 at 13:00 Norepinephrine (Levophed) 250 ml @ 1.875 mls/ hr TITRATE IV Last administered on 02/12/17t 18:37; Admin Dose 9.369 MLS/HR; Start 02/12/17 at 17:00 NILES AYALA NP Feb 13, 2017 08:58
[2017-02-13] MEDS: GABAPENTIN 300 MG CAP PO SCH ×3 (09:00→20:39)
[2017-02-13] MEDS: SALMETEROL/FLUTICASONE 250/50 INHA INH SCH ×2 (09:00→20:39)
[2017-02-13] MEDS ORDERED: FUROSEMIDE 40 MG INJ IV SCH (09:00)
[2017-02-13] MEDS: FAMOTIDINE 20 MG TAB PO SCH ×2 (09:00→20:39)
[2017-02-13] MEDS: FERROUS SULFATE (EC) 325 MG TAB PO SCH ×2 (09:00→20:39)
[2017-02-13] MEDS: ASPIRIN 81 MG TAB PO SCH (09:00)
--- NOTE | 2017-02-13 10:14 | RADRPT ---
PROCEDURE: XR Chest. CLINICAL INDICATION: Shortness of breath. TECHNIQUE: Single frontal view. COMPARISON: 02/12/2017. FINDINGS: There is right basilar and mid zone consolidation consistent with atelectasis or pneumonia, unchange d. There is a moderate right pleural effusion, unchanged. The left lung is clear and there is no lef t pleural effusion. The heart is enlarged. There is calcification in the aorta consistent with atherosclerosis. There is no pneumothorax. IMPRESSION: 1. No change from 02/12/2017. RPTAT: QQ .Kayden Cervantes MD, MD Date Time Electronically viewed and signed by .Kayden Cervantes MD, MD on 02/13/2017 10:13 .R/
[2017-02-13] MEDS: ACETAMINOPHEN 325 MG TAB PO PRN ×2 (11:16→20:00)
--- NOTE | 2017-02-13 11:52 | CONS ---
Date/Time of Note Date/Time of Note DATE: 02/13/17 TIME: 11:52 Assessment/Plan Assessment/Plan Additional Assessment/Plan 1. Non oliguric acute kidney injury on chronic kidney disease 2/2 hemodynamics from pulmonary edema and CHF, pt ran out of lasix 2. Chronic kidney disease III secondary to a diabetic Nephropathy 3. Acute Resp failure hypoxic due to pulmoanry edema and CHF due to ran out of lasix 4. h/o COPD 5. acute CHF exacerbaton , acute on chronic, diastoilc, ECHO showed ejection fraction, 62 to 65 with stage I diastolic dysfunction. 6. History of hyperlipidemia. 7. History of diabetes mellitus 8. Moderate right pleural effusion Plan : US guided Thoracentesis, BP labile, Lasix has been discontinued, on BIPAP pulmonary has been following pt hold off on lasix for now Cr slightly improved pt had a full CKD work up done on last admission no need to repeat it Consultation Date/Type/Reason Admit Date/Time Feb 12, 2017 at 02:12 Date of Consultation: Feb 13, 2017 Type of Consultation: NEPHROLOGY Reason for Consultation Acute kidney Injury, fluid overload, CHF Referring Provider: BRENDA CHAVEZ Hx of Present Illness 51-year-old male with a history of COPD with CO2 retention, HTN, DM, CHF, who was transferred from an outside facility after running out of lasix, noted to be in pulmonary edema, transiently requiring NiPPV via BiPAP. Renal has been consulted fro PAT vs PAT on CKD. Subjective hx not possible: other (moderate distress ) Eyes: no complaints ENT: no complaints Respiratory: cough, pleuritic pain, shortness of breath, wheezing Cardiovascular: no complaints Gastrointestinal: no complaints Genitourinary: no complaints Musculoskeletal: no complaints Skin: no complaints Neurologic: no complaints Endocrine: no complaints Lymphatic: no complaints Psychological: no complaints Immunologic: no complaints Past Medical History Medical History: congestive heart failure, diabetes, hypertension Past Surgical History Past Surgical Hx: no surgical history Family History Significant Family History: no pertinent family hx Social History Alcohol Use: sober (Quit 1 year ago) Smoking Status: Current every day smoker (1 pack per day 25 years) Drug Use: none Exam/Review of Systems Vital Signs Vitals Vital Signs Date Time Temp Pulse Resp B/P Pulse Ox O2 Delivery O2 Flow Rate FiO2 02/13/17 11:05 100 9.0 35 02/13/17 09:40 63 02/13/17 08:07 22 02/13/17 08:00 97.5 144/74 BIPAP Intake and Output 02/12/17 02/12/17 02/13/17 15:00 23:00 07:00 Intake Total 684.476 ml 11.375 ml Output Total 1200 ml 250 ml Balance -515.524 ml -238.625 ml Exam Constitutional: alert, distress (moderaet distress due to pulmonary edema ) Head: normocephalic Eyes: nl conjunctiva ENMT: nl external ears & nose, nl lips & teeth Neck: non-tender, supple Respiratory: congested cough, crackles/rales, diminished breath sounds, wheezing Cardiovascular: nl pulses, regular rate and rhythm Gastrointestinal: nl liver, spleen, non-tender, soft Musculoskeletal: muscle weakness, swelling Extremities: normal pulses Neurological: RAFTSMAN II-XII intact, nl mental status, nl speech, nl strength Results Result Diagram: 02/13/17 0432 02/13/17 0432 Results 24 hrs Laboratory Tests Test 02/12/17 16:00 02/12/17 16:44 02/12/17 16:50 02/12/17 18:53 Blood Gas Specimen Source Blood arterial Arterial Blood Date Drawn 02/12/2017 4:10:58 PM Arterial Blood pH (Temp corrected) 7.325 L Arterial Blood pCO2 (Temp correct) 63.4 H Arterial Blood pO2 (Temp corrected) 85.0 Arterial Blood HCO3 32.3 H Arterial Blood Base Excess 4.8 H Arterial Blood Oxygen Saturation 95.6 Rikki Test N/A Arterial Blood Gas Puncture Site LB Arterial Blood Carboxyhemoglobin 0.3 Arterial Blood Methemoglobin 0.2 Blood Gas A-a O2 Differential 280.4 H Oxyhemoglobin Percent 95.1 Total Hemoglobin 11.1 L Blood Gas Temperature 37.0 Blood Gas Modality MASK - SIMPLE FiO2 61.0 Blood Gas Notified Whom CW Blood Gas Notified Time 02/12/2017 4:23:52 PM Bedside Glucose 166 166 Prothrombin Time 14.6 H Prothrombin Time Ratio 1.1 INR International Normalized Ratio 1.14 Activated Partial Thromboplast Time 38.8 H Sodium Level 140 Potassium Level 4.1 Chloride Level 99 Carbon Dioxide Level 33 H Anion Gap 12 Blood Urea Nitrogen 26 H Creatinine 1.56 H Glucose Level 160 Calcium Level 8.4 Test 02/12/17 20:20 02/12/17 21:00 02/13/17 02:13 02/13/17 04:32 Bedside Glucose 201 190 Blood Gas Specimen Source Blood arterial Arterial Blood Date Drawn 02/12/2017 9:21:00 PM Arterial Blood pH (Temp corrected) 7.366 Arterial Blood pCO2 (Temp correct) 54.1 H Arterial Blood pO2 (Temp corrected) 73.9 L Arterial Blood HCO3 30.3 H Arterial Blood Base Excess 3.9 H Arterial Blood Oxygen Saturation 94.3 L Rikki Test ACCEPTAB Arterial Blood Gas Puncture Site Right Radial Arterial Blood Carboxyhemoglobin 0.1 Arterial Blood Methemoglobin 0.2 Blood Gas A-a O2 Differential 149.1 H Oxyhemoglobin Percent 94.0 Total Hemoglobin 11.6 L Blood Gas Temperature 37.0 Blood Gas Respiration Rate 19.0 Blood Gas Actual Respiration Rate 21 Blood Gas Modality MASK - BIPAP FiO2 40.0 Blood Gas Tidal Volume 328.0 Blood Gas High PEEP Setting 18.0 Blood Gas Low PEEP Setting 6.0 Blood Gas Pressure Support 12 Blood Gas IPAP/EPAP Ratio 25/10 Blood Gas Notified Whom R Audra Blood Gas Notified Time 02/12/2017 9:32:00 PM White Blood Count 8.3 # Red Blood Count 3.72 L Hemoglobin 10.4 L Hematocrit 32.9 L Mean Corpuscular Volume 88.4 Mean Corpuscular Hemoglobin 28.0 L Mean Corpuscular Hemoglobin Concent 31.6 L Red Cell Distribution Width 13.2 Platelet Count 228 # Mean Platelet Volume 10.4 Neutrophils % 52.7 Lymphocytes % 38.3 Monocytes % 7.7 Eosinophils % 1.0 Basophils % 0.1 Nucleated Red Blood Cells % 0.0 Neutrophils # 4.4 Lymphocytes # 3.2 H Monocytes # 0.6 Eosinophils # 0.1 Basophils # 0.0 Nucleated Red Blood Cells # 0.0 Prothrombin Time 14.1 Prothrombin Time Ratio 1.1 INR International Normalized Ratio 1.09 Activated Partial Thromboplast Time 34.0 Sodium Level 141 Potassium Level 3.7 Chloride Level 101 Carbon Dioxide Level 33 H Anion Gap 11 Blood Urea Nitrogen 31 H Creatinine 1.39 H Glucose Level 83 # Hemoglobin A1c 10.5 H Calcium Level 8.8 Magnesium Level 1.8 Total Bilirubin 0.4 Direct Bilirubin 0.00 Indirect Bilirubin 0.4 Aspartate Amino Transf (AST/SGOT) 23 Alanine Aminotransferase (ALT/SGPT) 37 Alkaline Phosphatase 66 Creatine Kinase 46 Creatine Kinase Index 3.3 Creatinine Kinase MB (Mass) 1.50 Troponin I 0.035 Total Protein 7.1 Albumin 3.3 Globulin 3.80 H Albumin/Globulin Ratio 0.86 Triglycerides Level 90 Cholesterol Level 136 LDL Cholesterol, Calculated 96 HDL Cholesterol 22 L Cholesterol/HDL Ratio 6.1 Thyroid Stimulating Hormone (TSH) 0.823 Free Thyroxine 1.32 Test 02/13/17 08:11 02/13/17 08:50 02/13/17 09:37 02/13/17 11:46 Bedside Glucose 71 105 97 77 Medications Medications Current Medications Ferrous Sulfate (Ferrous Sulfate (Ec)) 325 mg BID PO Last administered on 21:00; Admin Dose 325 MG; Start 02/12/17 at 09:00 Gabapentin (Neurontin) 300 mg TID PO Last administered on 02/12/17 21:00; Admin Dose 300 MG; Start 02/12/17 at 09:00 Insulin Glargine (Lantus) 36 unit QHS SC Last administered on 02/12/17 21:03; Admin Dose 36 UNIT; Start 02/12/17 at 21:00 Metoprolol Succinate (Toprol Xl) 25 mg BID PO Last administered on 02/12/17 08 :59; Admin Dose 25 MG; Start 02/12/17 at 09:00; Status Future Hold Nifedipine (Procardia Xl) 60 mg DAILY PO Last administered on 02/12/17 08:59; Admin Dose 60 MG; Start 02/12/17 at 09:00; Status Future Hold Salmeterol Xinafoate/ Fluticasone (Advair 250/50 Diskus) 1 inh BID INH Last administered on 02/12/17 21:00; Admin Dose 1 INH; Start 02/12/17 at 09:00 Miscellaneous Information 1 ea NOTE XX ; Start 02/12/17 at 04:30 Glucose (Glutose) 15 gm Q15M PRN PO DECREASED GLUCOSE; Start 02/12/17 at 04:30 Glucose (Glutose) 22.5 gm Q15M PRN PO DECREASED GLUCOSE; Start 02/12/17 at 04: 30 Dextrose (D50w Syringe) 25 ml Q15M PRN IV DECREASED GLUCOSE Last administered on 02/13/17 08:18; Admin Dose 25 ML; Start 02/12/17 at 04:30 Dextrose (D50w Syringe) 50 ml Q15M PRN IV DECREASED GLUCOSE; Start 02/12/17 at 04:30 Glucagon (Glucagen) 1 mg Q15M PRN IM DECREASED GLUCOSE; Start 02/12/17 at 04:30 Glucose (Glutose) 15 gm Q15M PRN BUCCAL DECREASED GLUCOSE; Start 02/12/17 at 04 :30 Ondansetron HCl (Zofran Inj) 4 mg Q6H PRN IV NAUSEA AND/OR VOMITING; Start 02/12/17 at 04:30 Aspirin (Aspirin) 81 mg DAILY PO Last administered on 02/12/17 09:00; Admin Dose 81 MG; Start 02/12/17 at 09:00 Nitroglycerin (Nitroglycerin (Sl Tab) 0.4 Mg) 1 tab Q5M PRN SL CHEST PAIN; Start 02/12/17 at 04:30 Acetaminophen (Tylenol Tab) 650 mg Q6H PRN PO PAIN LEVEL 1-3 OR FEVER Last administered on 02/13/17 11:16; Admin Dose 650 MG; Start 02/12/17 at 04:30 Morphine Sulfate (morphine) 2 mg Q4H PRN IV PAIN LEVEL 7-10 Last administered on 02/12/17 07:14; Admin Dose 2 MG; Start 02/12/17 at 04:30 Docusate Sodium (Colace) 100 mg Q12H PRN PO CONSTIPATION; Start 02/12/17 at 04: 30 Bisacodyl (Dulcolax) 5 mg DAILY PRN PO CONSTIPATION; Start 02/12/17 at 04:30 Famotidine (Pepcid) 20 mg Q12 PO Last administered on 02/12/17 21:00; Admin Dose 20 MG; Start 02/12/17 at 09:00 Diagnostic Test (Pha) (Accu-Chek) 1 ea 02 XX Last administered on 02/13/17 02: 19; Admin Dose 1 EA; Start 02/13/17 at 02:00 Diagnostic Test (Pha) 1 ea 1 ea 02 XX Last administered on 02/13/17 02:19; Admin Dose 1 EA; Start 02/13/17 at 02:00 Norepinephrine 250 ml @ 1.875 mls/ hr TITRATE IV Last administered on 10/6/ 17at 18:37; Admin Dose 9.369 MLS/HR; Start 02/12/17 at 17:00 Levofloxacin/ Dextrose (Levaquin 500mg/ D5W 100 ml (Pmx)) 100 ml @ 100 mls/hr Q48H IVPB ; Start 02/14/17 at 13:00 Heparin Sodium (Porcine) (Heparin (5000 Units/0.5 ml)) 5,000 unit Q8 SC ; Start 02/13/17 at 14:00 BON GUERRERO MD Feb 13, 2017 11:52
--- NOTE | 2017-02-13 13:36 | CONS ---
Date/Time of Note Date/Time of Note DATE: 02/13/17 TIME: 13:30 Assessment/Plan Assessment/Plan Additional Assessment/Plan IMP: 1. Acute on chronic hypoxemic and hypercapnic resp insufficiency: due to CHF and co-existing COPD exacerbation 2. CHF 3. COPD 4. PAT on ? CKD 5. Right effusion RECS: 1. Titrate FiO2 to SpO2 88-92% 2. Diuresis 3. Check ECHO 4. BDs 5. CS 6. Abx 7. Thora prn Consultation Date/Type/Reason Admit Date/Time Feb 12, 2017 at 02:12 Type of Consultation: PUlm/CCM Hx of Present Illness Briefly, this is a 51-year-old male with a history of COPD with CO2 retention, HTN, DM, CHF, who was transferred from an outside facility after running out of lasix, noted to be in pulmonary edema, transiently requiring NiPPV via BiPAP. Constitutional: no complaints Eyes: no complaints ENT: no complaints Respiratory: shortness of breath, wheezing Cardiovascular: no complaints Gastrointestinal: no complaints Genitourinary: no complaints Musculoskeletal: no complaints Skin: no complaints Neurologic: no complaints Endocrine: no complaints Lymphatic: no complaints Psychological: no complaints Immunologic: no complaints Past Medical History Medical History: congestive heart failure, hypertension Past Surgical History Past Surgical Hx: no surgical history Family History Significant Family History: no pertinent family hx Social History Alcohol Use: sober (Quit 1 year ago) Smoking Status: Current every day smoker (1 pack per day 25 years) Drug Use: none Exam/Review of Systems Vital Signs Vitals Vital Signs Date Time Temp Pulse Resp B/P Pulse Ox O2 Delivery O2 Flow Rate FiO2 02/13/17 12:48 100 9.0 35 02/13/17 12:48 74 21 02/13/17 08:00 97.5 144/74 BIPAP Intake and Output 02/12/17 02/12/17 02/13/17 15:00 23:00 07:00 Intake Total 684.476 ml 11.375 ml Output Total 1200 ml 250 ml Balance -515.524 ml -238.625 ml Exam Constitutional: alert, oriented, well developed Head: atraumatic, normocephalic Eyes: EOMI, nl conjunctiva, nl lids, nl sclera ENMT: mucosa pink and moist, nl external ears & nose, nl lips & teeth, nl nasal mucosa & septum Neck: jvd, non-tender, supple Respiratory: crackles/rales, wheezing Cardiovascular: nl pulses, regular rate and rhythm Gastrointestinal: nl liver, spleen, soft Extremities: normal pulses Results Result Diagram: 02/13/17 0432 02/13/17 0432 Results 24 hrs Laboratory Tests Test 02/12/17 16:00 02/12/17 16:44 02/12/17 16:50 02/12/17 18:53 Blood Gas Specimen Source Blood arterial Arterial Blood Date Drawn 02/12/2017 4:10:58 PM Arterial Blood pH (Temp corrected) 7.325 L Arterial Blood pCO2 (Temp correct) 63.4 H Arterial Blood pO2 (Temp corrected) 85.0 Arterial Blood HCO3 32.3 H Arterial Blood Base Excess 4.8 H Arterial Blood Oxygen Saturation 95.6 Rikki Test N/A Arterial Blood Gas Puncture Site LB Arterial Blood Carboxyhemoglobin 0.3 Arterial Blood Methemoglobin 0.2 Blood Gas A-a O2 Differential 280.4 H Oxyhemoglobin Percent 95.1 Total Hemoglobin 11.1 L Blood Gas Temperature 37.0 Blood Gas Modality MASK - SIMPLE FiO2 61.0 Blood Gas Notified Whom CW Blood Gas Notified Time 02/12/2017 4:23:52 PM Bedside Glucose 166 166 Prothrombin Time 14.6 H Prothrombin Time Ratio 1.1 INR International Normalized Ratio 1.14 Activated Partial Thromboplast Time 38.8 H Sodium Level 140 Potassium Level 4.1 Chloride Level 99 Carbon Dioxide Level 33 H Anion Gap 12 Blood Urea Nitrogen 26 H Creatinine 1.56 H Glucose Level 160 Calcium Level 8.4 Test 02/12/17 20:20 02/12/17 21:00 02/13/17 02:13 02/13/17 04:32 Bedside Glucose 201 190 Blood Gas Specimen Source Blood arterial Arterial Blood Date Drawn 02/12/2017 9:21:00 PM Arterial Blood pH (Temp corrected) 7.366 Arterial Blood pCO2 (Temp correct) 54.1 H Arterial Blood pO2 (Temp corrected) 73.9 L Arterial Blood HCO3 30.3 H Arterial Blood Base Excess 3.9 H Arterial Blood Oxygen Saturation 94.3 L Rikki Test ACCEPTAB Arterial Blood Gas Puncture Site Right Radial Arterial Blood Carboxyhemoglobin 0.1 Arterial Blood Methemoglobin 0.2 Blood Gas A-a O2 Differential 149.1 H Oxyhemoglobin Percent 94.0 Total Hemoglobin 11.6 L Blood Gas Temperature 37.0 Blood Gas Respiration Rate 19.0 Blood Gas Actual Respiration Rate 21 Blood Gas Modality MASK - BIPAP FiO2 40.0 Blood Gas Tidal Volume 328.0 Blood Gas High PEEP Setting 18.0 Blood Gas Low PEEP Setting 6.0 Blood Gas Pressure Support 12 Blood Gas IPAP/EPAP Ratio 25/10 Blood Gas Notified Whom R Audra Blood Gas Notified Time 02/12/2017 9:32:00 PM White Blood Count 8.3 # Red Blood Count 3.72 L Hemoglobin 10.4 L Hematocrit 32.9 L Mean Corpuscular Volume 88.4 Mean Corpuscular Hemoglobin 28.0 L Mean Corpuscular Hemoglobin Concent 31.6 L Red Cell Distribution Width 13.2 Platelet Count 228 # Mean Platelet Volume 10.4 Neutrophils % 52.7 Lymphocytes % 38.3 Monocytes % 7.7 Eosinophils % 1.0 Basophils % 0.1 Nucleated Red Blood Cells % 0.0 Neutrophils # 4.4 Lymphocytes # 3.2 H Monocytes # 0.6 Eosinophils # 0.1 Basophils # 0.0 Nucleated Red Blood Cells # 0.0 Prothrombin Time 14.1 Prothrombin Time Ratio 1.1 INR International Normalized Ratio 1.09 Activated Partial Thromboplast Time 34.0 Sodium Level 141 Potassium Level 3.7 Chloride Level 101 Carbon Dioxide Level 33 H Anion Gap 11 Blood Urea Nitrogen 31 H Creatinine 1.39 H Glucose Level 83 # Hemoglobin A1c 10.5 H Calcium Level 8.8 Magnesium Level 1.8 Total Bilirubin 0.4 Direct Bilirubin 0.00 Indirect Bilirubin 0.4 Aspartate Amino Transf (AST/SGOT) 23 Alanine Aminotransferase (ALT/SGPT) 37 Alkaline Phosphatase 66 Creatine Kinase 46 Creatine Kinase Index 3.3 Creatinine Kinase MB (Mass) 1.50 Troponin I 0.035 Total Protein 7.1 Albumin 3.3 Globulin 3.80 H Albumin/Globulin Ratio 0.86 Triglycerides Level 90 Cholesterol Level 136 LDL Cholesterol, Calculated 96 HDL Cholesterol 22 L Cholesterol/HDL Ratio 6.1 Thyroid Stimulating Hormone (TSH) 0.823 Free Thyroxine 1.32 Test 02/13/17 08:11 02/13/17 08:50 02/13/17 09:37 02/13/17 11:46 Bedside Glucose 71 105 97 77 Medications Medications Current Medications Ferrous Sulfate (Ferrous Sulfate (Ec)) 325 mg BID PO Last administered on t 21:00; Admin Dose 325 MG; Start 02/12/17 at 09:00 Gabapentin (Neurontin) 300 mg TID PO Last administered on 02/12/17 21:00; Admin Dose 300 MG; Start 02/12/17 at 09:00 Insulin Glargine (Lantus) 36 unit QHS SC Last administered on 02/12/17 21:03; Admin Dose 36 UNIT; Start 02/12/17 at 21:00 Metoprolol Succinate (Toprol Xl) 25 mg BID PO Last administered on 02/12/17 08 :59; Admin Dose 25 MG; Start 02/12/17 at 09:00; Status Future Hold Nifedipine (Procardia Xl) 60 mg DAILY PO Last administered on 02/12/17 08:59; Admin Dose 60 MG; Start 02/12/17 at 09:00; Status Future Hold Salmeterol Xinafoate/ Fluticasone (Advair 250/50 Diskus) 1 inh BID INH Last administered on 02/12/17 21:00; Admin Dose 1 INH; Start 02/12/17 at 09:00 Miscellaneous Information 1 ea NOTE XX ; Start 02/12/17 at 04:30 Glucose (Glutose) 15 gm Q15M PRN PO DECREASED GLUCOSE; Start 02/12/17 at 04:30 Glucose (Glutose) 22.5 gm Q15M PRN PO DECREASED GLUCOSE; Start 02/12/17 at 04: 30 Dextrose (D50w Syringe) 25 ml Q15M PRN IV DECREASED GLUCOSE Last administered on 02/13/17 08:18; Admin Dose 25 ML; Start 02/12/17 at 04:30 Dextrose (D50w Syringe) 50 ml Q15M PRN IV DECREASED GLUCOSE; Start 02/12/17 at 04:30 Glucagon (Glucagen) 1 mg Q15M PRN IM DECREASED GLUCOSE; Start 02/12/17 at 04:30 Glucose (Glutose) 15 gm Q15M PRN BUCCAL DECREASED GLUCOSE; Start 02/12/17 at 04 :30 Ondansetron HCl (Zofran Inj) 4 mg Q6H PRN IV NAUSEA AND/OR VOMITING; Start 02/12/17 at 04:30 Aspirin (Aspirin) 81 mg DAILY PO Last administered on 02/12/17 09:00; Admin Dose 81 MG; Start 02/12/17 at 09:00 Nitroglycerin (Nitroglycerin (Sl Tab) 0.4 Mg) 1 tab Q5M PRN SL CHEST PAIN; Start 02/12/17 at 04:30 Acetaminophen (Tylenol Tab) 650 mg Q6H PRN PO PAIN LEVEL 1-3 OR FEVER Last administered on 02/13/17 11:16; Admin Dose 650 MG; Start 02/12/17 at 04:30 Morphine Sulfate (morphine) 2 mg Q4H PRN IV PAIN LEVEL 7-10 Last administered on 02/12/17 07:14; Admin Dose 2 MG; Start 02/12/17 at 04:30 Docusate Sodium (Colace) 100 mg Q12H PRN PO CONSTIPATION; Start 02/12/17 at 04: 30 Bisacodyl (Dulcolax) 5 mg DAILY PRN PO CONSTIPATION; Start 02/12/17 at 04:30 Famotidine (Pepcid) 20 mg Q12 PO Last administered on 02/12/17 21:00; Admin Dose 20 MG; Start 02/12/17 at 09:00 Diagnostic Test (Pha) (Accu-Chek) 1 ea 02 XX Last administered on 02/13/17 02: 19; Admin Dose 1 EA; Start 02/13/17 at 02:00 Diagnostic Test (Pha) 1 ea 1 ea 02 XX Last administered on 02/13/17 02:19; Admin Dose 1 EA; Start 02/13/17 at 02:00 Norepinephrine 250 ml @ 1.875 mls/ hr TITRATE IV Last administered on 18:37; Admin Dose 9.369 MLS/HR; Start 02/12/17 at 17:00 Levofloxacin/ Dextrose (Levaquin 500mg/ D5W 100 ml (Pmx)) 100 ml @ 100 mls/hr Q48H IVPB ; Start 02/14/17 at 13:00 Heparin Sodium (Porcine) (Heparin (5000 Units/0.5 ml)) 5,000 unit Q8 SC ; Start 02/13/17 at 14:00 GARY MARI MD Feb 13, 2017 13:36
[2017-02-13] MEDS: METHYLPREDNISOLONE 40 MG INJ IV SCH ×2 (14:10→20:39)
[2017-02-13] MEDS: HEPARIN 5,000 UNIT/0.5 ML VIAL SC SCH ×2 (16:27→21:46)
[2017-02-13] MEDS ORDERED: LIDOCAINE 1% (MPF) 5 ML VIAL ONE (16:29)
--- NOTE | 2017-02-13 16:45 | RADRPT ---
PROCEDURE: US guided right thoracentesis. CLINICAL INDICATION: Shortness of breath. Right pleural effusion. TECHNIQUE: Prior to the procedure, informed consent was obtained. The risks, benefits, and alternatives were e xplained to the patient or the patient's family, including but not limited to bleeding, infection, p ain, visceral or vascular damage, shock, pneumothorax, chest tube placement, air embolism, and . The patient or the patient's family understood the risks and the alternatives and wished to proce ed with the study. Informed written consent was obtained. A procedural pause was performed. The patient's name, date of , and procedure to be performed were verified. Ultrasound of the right hemithorax was performed in the axial and sagittal planes. A right pleural e ffusion is noted. Utilizing ultrasound guidance, optimal location for entry to the pleural cavity wa s ascertained. The overlying skin was prepped and draped in the usual sterile fashion. Approximate ly 10 ml of 1% Xylocaine was injected locally for pain control. Using ultrasound guidance, a 5-Fren Yueh catheter was introduced into the right pleural space without difficulty. Fluid was aspirated . COMPARISON: Chest x-ray done earlier the same day. FINDINGS: Initial ultrasound demonstrates fluid in the right pleural space. Approximately 1.2 liters of serou s fluid was aspirated and sent to the laboratory. IMPRESSION: 1. Satisfactory ultrasound-guided right thoracentesis. RPTAT: QQ .Kayden Cervantes MD, Date Time Electronically viewed and signed by .Kayden Cervantes MD, on 02/13/2017 16:45 .R/
[2017-02-13 17:04] LABS: FLD MN% 96.3 %; FLD PMN% 3.7 %; FLD RBC 0 /uL; FLD WBC 108 /cmm
--- NOTE | 2017-02-13 17:09 | RADRPT ---
PROCEDURE: XR Chest. CLINICAL INDICATION: Shortness of breath. Post right thoracentesis. TECHNIQUE: Single frontal view. COMPARISON: Prior study done earlier the same day. FINDINGS: Previously noted right pleural effusion is now much smaller. There is improved aeration of the right lung base. The left lung is clear and there is no left pleural effusion. The heart is enlarged. There is calcification in the aorta consistent with atherosclerosis. There is no pneumothorax. IMPRESSION: 1. Smaller right pleural effusion. 2. No other change from the prior study done earlier the same day. 3. No pneumothorax. RPTAT: QQ .Kayden Cervantes MD, MD Date Time Electronically viewed and signed by .Kayden Cervantes MD, on 02/13/2017 17:09 .R/
[2017-02-13 17:21] LABS: FLD CLARITY HAZY; FLD COLOR YELLOW; FLD TYPE THORACENTESIS
[2017-02-13 17:29] LABS: FLUID LD 307 U/L; FLUID TOTAL PROTEIN 3.2 g/dl
[2017-02-13 17:30] LABS: FLUID GLUCOSE 98 mg/dl
[2017-02-13 17:31] LABS: FLUID TYPE THORACENTESIS FLUID
[2017-02-13 17:33] LABS: FLUID TYPE THORACENTESIS FLUID
--- NOTE | 2017-02-13 18:13 | CONS ---
Date/Time of Note Date/Time of Note DATE: 02/13/17 TIME: 18:07 Assessment/Plan Assessment/Plan Additional Assessment/Plan Acute exacerbation of congestive heart failure Hypoxic respiratory failure Pleural effusion s/p right thoracentesis Acute on chronic CKD COPD Hyperlipidemia Hypertension Diabetes He was transferred from [facility] due to hypotension and desaturation and was stabilized on Bipap and Levophed and off Levophed since thia morning and thoracentesis Off Vasopressors Continue Oxygen Continue ASA Avoid GLORIA-I/ARBs due to renal failure Avoid nephrotoxins Continue Insulin Continue Methylprednisone Continue Antibiotics Continue GI Prophylaxis Consultation Date/Type/Reason Admit Date/Time Feb 12, 2017 at 02:12 Constitutional: no complaints Eyes: no complaints ENT: no complaints Respiratory: cough, pleuritic pain, shortness of breath, wheezing Cardiovascular: no complaints Gastrointestinal: no complaints Genitourinary: no complaints Musculoskeletal: no complaints Skin: no complaints Neurologic: no complaints Endocrine: no complaints Lymphatic: no complaints Psychological: no complaints Immunologic: no complaints Past Medical History Medical History: congestive heart failure, diabetes, hypertension Past Surgical History Past Surgical Hx: no surgical history Social History Alcohol Use: sober (Quit 1 year ago) Smoking Status: Current every day smoker (1 pack per day 25 years) Drug Use: none Exam/Review of Systems Vital Signs Vitals Vital Signs Date Time Temp Pulse Resp B/P Pulse Ox O2 Delivery O2 Flow Rate FiO2 02/13/17 18:00 82 22 127/90 100 Nasal Cannula 2.0 02/13/17 17:50 28 02/13/17 12:00 98.0 Intake and Output 02/12/17 02/12/17 02/13/17 15:00 23:00 07:00 Intake Total 684.476 ml 11.375 ml Output Total 1200 ml 250 ml Balance -515.524 ml -238.625 ml Exam Constitutional: alert, oriented Psych: no complaints Head: atraumatic, normocephalic Neck: non-tender, supple Respiratory: diminished breath sounds Cardiovascular: regular rate and rhythm Gastrointestinal: nl liver, spleen, non-tender, soft Extremities: normal pulses Results Result Diagram: 02/13/17 0432 02/13/17 0432 Results 24 hrs Laboratory Tests Test 02/12/17 18:53 02/12/17 20:20 02/12/17 21:00 02/13/17 02:13 Bedside Glucose 166 201 190 Blood Gas Specimen Source Blood arterial Arterial Blood Date Drawn 02/12/2017 9:21:00 PM Arterial Blood pH (Temp corrected) 7.366 Arterial Blood pCO2 (Temp correct) 54.1 H Arterial Blood pO2 (Temp corrected) 73.9 L Arterial Blood HCO3 30.3 H Arterial Blood Base Excess 3.9 H Arterial Blood Oxygen Saturation 94.3 L Rikki Test ACCEPTAB Arterial Blood Gas Puncture Site Right Radial Arterial Blood Carboxyhemoglobin 0.1 Arterial Blood Methemoglobin 0.2 Blood Gas A-a O2 Differential 149.1 H Oxyhemoglobin Percent 94.0 Total Hemoglobin 11.6 L Blood Gas Temperature 37.0 Blood Gas Respiration Rate 19.0 Blood Gas Actual Respiration Rate 21 Blood Gas Modality MASK - BIPAP FiO2 40.0 Blood Gas Tidal Volume 328.0 Blood Gas High PEEP Setting 18.0 Blood Gas Low PEEP Setting 6.0 Blood Gas Pressure Support 12 Blood Gas IPAP/EPAP Ratio 18 Blood Gas Notified Whom R [facility] Blood Gas Notified Time 02/12/2017 9:32:00 PM Test 02/13/17 04:32 02/13/17 08:11 02/13/17 08:50 02/13/17 09:37 White Blood Count 8.3 # Red Blood Count 3.72 L Hemoglobin 10.4 L Hematocrit 32.9 L Mean Corpuscular Volume 88.4 Mean Corpuscular Hemoglobin 28.0 L Mean Corpuscular Hemoglobin Concent 31.6 L Red Cell Distribution Width 13.2 Platelet Count 228 # Mean Platelet Volume 10.4 Neutrophils % 52.7 Lymphocytes % 38.3 Monocytes % 7.7 Eosinophils % 1.0 Basophils % 0.1 Nucleated Red Blood Cells % 0.0 Neutrophils # 4.4 Lymphocytes # 3.2 H Monocytes # 0.6 Eosinophils # 0.1 Basophils # 0.0 Nucleated Red Blood Cells # 0.0 Prothrombin Time 14.1 Prothrombin Time Ratio 1.1 INR International Normalized Ratio 1.09 Activated Partial Thromboplast Time 34.0 Sodium Level 141 Potassium Level 3.7 Chloride Level 101 Carbon Dioxide Level 33 H Anion Gap 11 Blood Urea Nitrogen 31 H Creatinine 1.39 H Glucose Level 83 # Hemoglobin A1c 10.5 H Calcium Level 8.8 Magnesium Level 1.8 Total Bilirubin 0.4 Direct Bilirubin 0.00 Indirect Bilirubin 0.4 Aspartate Amino Transf (AST/SGOT) 23 Alanine Aminotransferase (ALT/SGPT) 37 Alkaline Phosphatase 66 Creatine Kinase 46 Creatine Kinase Index 3.3 Creatinine Kinase MB (Mass) 1.50 Troponin I 0.035 Total Protein 7.1 Albumin 3.3 Globulin 3.80 H Albumin/Globulin Ratio 0.86 Triglycerides Level 90 Cholesterol Level 136 LDL Cholesterol, Calculated 96 HDL Cholesterol 22 L Cholesterol/HDL Ratio 6.1 Thyroid Stimulating Hormone (TSH) 0.823 Free Thyroxine 1.32 Bedside Glucose 71 105 97 Test 02/13/17 11:46 02/13/17 15:42 02/13/17 16:18 Bedside Glucose 77 81 Body Fluid Type THORACENTESIS FLUID Body Fluid Volume 825.0 Body Fluid Color YELLOW Body Fluid Appearance HAZY Body Fluid WBC 108 Body Fluid RBC (Auto) 0 Body Fluid Polynuclear WBCs (%) 3.7 Body Fluid Mononuclear Cells % Auto 96.3 Body Fluid Other Cells Body Fluid Glucose 98 Body Fluid Total Protein 3.2 Body Fluid Lactate Dehydrogenase 307 Medications Medications Current Medications Ferrous Sulfate (Ferrous Sulfate (Ec)) 325 mg BID PO Last administered on 21:00; Admin Dose 325 MG; Start 02/12/17 at 09:00 Gabapentin (Neurontin) 300 mg TID PO Last administered on 02/13/17 14:10; Admin Dose 300 MG; Start 02/12/17 at 09:00 Insulin Glargine (Lantus) 36 unit QHS SC Last administered on 02/12/17 21:03; Admin Dose 36 UNIT; Start 02/12/17 at 21:00 Metoprolol Succinate (Toprol Xl) 25 mg BID PO Last administered on 02/12/17 08 :59; Admin Dose 25 MG; Start 02/12/17 at 09:00; Status Future Hold Nifedipine (Procardia Xl) 60 mg DAILY PO Last administered on 02/12/17 08:59; Admin Dose 60 MG; Start 02/12/17 at 09:00; Status Future Hold Salmeterol Xinafoate/ Fluticasone (Advair 250/50 Diskus) 1 inh BID INH Last administered on 02/12/17 21:00; Admin Dose 1 INH; Start 02/12/17 at 09:00 Miscellaneous Information 1 ea NOTE XX ; Start 02/12/17 at 04:30 Glucose (Glutose) 15 gm Q15M PRN PO DECREASED GLUCOSE; Start 02/12/17 at 04:30 Glucose (Glutose) 22.5 gm Q15M PRN PO DECREASED GLUCOSE; Start 02/12/17 at 04: 30 Dextrose (D50w Syringe) 25 ml Q15M PRN IV DECREASED GLUCOSE Last administered on 02/13/17 08:18; Admin Dose 25 ML; Start 02/12/17 at 04:30 Dextrose (D50w Syringe) 50 ml Q15M PRN IV DECREASED GLUCOSE; Start 02/12/17 at 04:30 Glucagon (Glucagen) 1 mg Q15M PRN IM DECREASED GLUCOSE; Start 02/12/17 at 04:30 Glucose (Glutose) 15 gm Q15M PRN BUCCAL DECREASED GLUCOSE; Start 02/12/17 at 04 :30 Ondansetron HCl (Zofran Inj) 4 mg Q6H PRN IV NAUSEA AND/OR VOMITING; Start 02/12/17 at 04:30 Aspirin (Aspirin) 81 mg DAILY PO Last administered on 02/12/17 09:00; Admin Dose 81 MG; Start 02/12/17 at 09:00 Nitroglycerin (Nitroglycerin (Sl Tab) 0.4 Mg) 1 tab Q5M PRN SL CHEST PAIN; Start 02/12/17 at 04:30 Acetaminophen (Tylenol Tab) 650 mg Q6H PRN PO PAIN LEVEL 1-3 OR FEVER Last administered on 02/13/17 11:16; Admin Dose 650 MG; Start 02/12/17 at 04:30 Morphine Sulfate (morphine) 2 mg Q4H PRN IV PAIN LEVEL 7-10 Last administered on 02/12/17 07:14; Admin Dose 2 MG; Start 02/12/17 at 04:30 Docusate Sodium (Colace) 100 mg Q12H PRN PO CONSTIPATION; Start 02/12/17 at 04: 30 Bisacodyl (Dulcolax) 5 mg DAILY PRN PO CONSTIPATION; Start 02/12/17 at 04:30 Famotidine (Pepcid) 20 mg Q12 PO Last administered on 02/12/17 21:00; Admin Dose 20 MG; Start 02/12/17 at 09:00 Diagnostic Test (Pha) (Accu-Chek) 1 ea 02 XX Last administered on 02/13/17 02: 19; Admin Dose 1 EA; Start 02/13/17 at 02:00 Diagnostic Test (Pha) 1 ea 1 ea 02 XX Last administered on 02/13/17 02:19; Admin Dose 1 EA; Start 02/13/17 at 02:00 Levofloxacin/ Dextrose (Levaquin 500mg/ D5W 100 ml (Pmx)) 100 ml @ 100 mls/hr Q48H IVPB ; Start 02/14/17 at 13:00 Heparin Sodium (Porcine) (Heparin (5000 Units/0.5 ml)) 5,000 unit Q8 SC Last administered on 02/13/17 16:27; Admin Dose 5,000 UNIT; Start 02/13/17 at 14:00 Methylprednisolone Sodium Succinate (Solu-Medrol) 40 mg Q12 IV Last administered on 02/13/17 14:10; Admin Dose 40 MG; Start 02/13/17 at 14:00 RADU LEGGETT M.D. Feb 13, 2017 18:13
[2017-02-13] MEDS: INSULIN GLARGINE [LANtus] 3 ML PEN SC SCH (20:42)
--- NOTE | 2017-02-13 23:14 | RADRPT ---
Echocardiogram Report Patient Name: MIGUEL ÁNGEL SAMAYOA Gender: Male Date: 1955 Study Date: 13-Feb-2017 [employer] Admin: Jay Hale [facility] Location: 114 Ref. Physician: BRENDA CHAVEZ Quality: Adequate Procedures: Transthoracic echocardiogram with complete 2D, M-Mode, and doppler examination. Indications: Congestive Heart Failure, Pleural effusion. 2D/M Mode Doppler Measurement Value Normal Ranges Measurement Value Normal Ranges LVIDd 2D 4.3 3.5 - 5.6 cm AV Peak Domenico 1.3 m/sec LVIDs 2D 2.8 2.1 - 4.1 cm AV Peak PG 7.0 mmHg FS 2D 33.7 % LVOT Peak Domenico 1.1 m/sec LVPWd 2D 1.5 0.6 - 1.1 cm LVOT Peak PG 5.0 mmHg IVSd 2D 1.5 0.6 - 1.1 cm MV E Peak Domenico 1.1 m/sec IVS/LVPW 2D 1.0 MV A Peak Domenico 0.4 m/sec AoR Diam 2D 3.1 2.0 - 3.7 cm MV E/A 2.9 LA/Ao 2D 1 0 - 1 MV Decel Time 162 msec EDV 2D 77.9 cm3 MV E/A 2.9 ESV 2D 22.7 cm3 MR Peak PG 70.0 mmHg LA Dimen 2D 4.3 2.3 - 4.0 cm MR Peak Domenico 4.2 m/sec TR Peak Domenico 3.1 m/sec TR Peak PG 38.0 mmHg RVSP 41.0 mmHg Findings Left Ventricle: Normal left ventricular systolic function. Normal left ventricular cavity size. Moderate concentric left ventricular hypertrophy. Ejection fraction is visually estimated at 65 %. Abnormal Diastolic Function. Right Ventricle: Normal right ventricular size. Normal right ventricular systolic function. Left Atrium: There is mild enlargement of left atrium. Right Atrium: The right atrium is normal in size. Mitral Valve: Mild mitral leaflet calcification. Mild mitral annular calcification. Mild mitral valve regurgitation. Aortic Valve: Normal appearance of the aortic valve. No significant aortic stenosis or insufficiency. Tricuspid Valve: Normal appearance of the tricuspid valve. Estimated peak PA systolic pressure 41 mmHg. There is mild tricuspid regurgitation. Pulmonic Valve: Pulmonic valve not well visualized. There is trace pulmonic regurgitation. Pericardium: Normal pericardium with no significant pericardial effusion. Aorta: Normal aortic root. IVC: Normal size and normal respiratory collapse consistent with normal right atrial pressure. Conclusions Normal left ventricular systolic function. Normal left ventricular cavity size. Moderate concentric left ventricular hypertrophy. Ejection fraction is visually estimated at 65 %. Abnormal Diastolic Function. Normal right ventricular size. Normal right ventricular systolic function. Mild mitral leaflet calcification. Mild mitral annular calcification. Mild mitral valve regurgitation. Normal appearance of the aortic valve. No significant aortic stenosis or insufficiency. Normal appearance of the tricuspid valve. Estimated peak PA systolic pressure 41 mmHg. There is mild tricuspid regurgitation. Moderate Pulmonary Hypertension. Normal pericardium with no significant pericardial effusion. Electronically Signed By: Ziggy Armstrong 13-Feb-2017 23:12:38 -0700 Patient Name: MIGUEL ÁNGEL SAMAYOA Study Date: 13-Feb-2017 [id number]
[2017-02-14] VITALS (26 sets, daily range): BP systolic 115–169; BP diastolic 22–82; PULSE 72–129; RESP 0–27
[2017-02-14] MEDS: ACCU-CHEK XX SCH ×2 (02:00)
[2017-02-14 04:45] LABS: BASOPHILS % 0.2 % (0.0-2.0); HEMATOCRIT 38.2 % (42.0-52.0); HEMOGLOBIN 11.7 g/dl (14.0-18.0); LYMPHOCYTES # 0.9 10^3/ul (0.8-2.9); LYMPHOCYTES % 13.3 % (15.0-51.0); MEAN CORPUSCULAR HGB CONC 30.6 g/dl (32.0-37.0); MEAN PLATELET VOLUME 9.9 fl (7.4-10.4); MONOCYTE # 0.1 10^3/ul (0.3-0.9); MONOCYTES % 1.5 % (0.0-11.0); NEUTROPHIL # 5.5 10^3/ul (1.6-7.5); NEUTROPHILS % 84.7 % (39.0-77.0); PLATELET COUNT 281 10^3/UL (140-415); POSITIVE DIFF @See below; RED BLOOD COUNT 4.34 10^6/ul (4.70-6.10); WHITE BLOOD COUNT 6.5 10^3/ul (4.8-10.8)
[2017-02-14 05:10] LABS: AADO2 Arterial 86.2 mmHg (7.0-24.0); Allen Test ACCEPTAB; Arterial Base Excess 6.5 mmol/L (-3.0-3); Arterial COHb 0.5 % (0.0-3.0); Arterial Fraction of Oxyhgb 96.6 % (93.0-99.0); Arterial HCO3 33.6 mmol/L (22.0-26.0); Arterial MetHb 0.1 % (0.0-1.5); Arterial Total Hemglobin 12.6 g/dl (12.0-18.0); MODE NASAL CANNULA
[2017-02-14 05:22] LABS: MAGNESIUM 1.9 mg/dl (1.7-2.5); PHOSPHORUS 3.9 mg/dl (2.5-4.9)
[2017-02-14 05:24] LABS: CREATININE 1.02 mg/dl (0.61-1.24); POTASSIUM 4.5 mmol/L (3.5-5.1)
[2017-02-14] MEDS: HEPARIN 5,000 UNIT/0.5 ML VIAL SC SCH ×3 (05:43→22:20)
[2017-02-14] MEDS: INSULIN ASPART [NOVOLOG] 3 ML PEN SC SCH ×7 (07:47→21:40)
--- NOTE | 2017-02-14 08:25 | PN ---
Date/Time of Note Date/Time of Note DATE: 02/14/17 TIME: 08:16 Assessment/Plan VTE Prophylaxis VTE Prophylaxis Intervention: heparin Lines/Catheters IV C[facility]ter Type [facility]from [facility] Saline Lock Assessment/Plan Chief Complaint/Hosp Course 1. Acute respiratory failure. Hypoxic and hypercapnic. Secondary to COPD exacerbation and diastolic heart failure along with right sided pleural effusion. Continue inhaled bronchodilators. Continue tapering dose of steroids. NIPPV as indicated. The patient being followed by pulmonology. 2. Episodic hypotension that required IV pressors. Resolved. Etiology unclear. 3. Recurrent right-sided pleural effusion. Status post prior multiple thoracenteses. Status post ultrasound-guided thoracentesis on 02/13/2017 with drainage of 1.2 L of fluid. 4. Anemia. Normocytic and hypochromic. Continue the patient on iron supplements. 5. Essential hypertension. Resume antihypertensives while carefully watching the BP. 6. Acute on chronic kidney disease. Nephrology following the patient. 7. CHF exacerbation. Acute on chronic. Diastolic heart failure. Latest 2D echo showing EF of 60-65%. Being followed by cardiology. Medical management as per cardiology. 8. Nicotine use. Cessation advised. 9. Fluids, electrolytes, and nutrition. Carbohydrate controlled diet. 10. DVT prophylaxis with subcutaneous heparin. 11. Plan. Continue inhaled bronchodilators and tapering dose of steroids. Transfer the patient out of the intensive care unit. Discussed with Dr. Gonzalez. Critical CARE time: 35 minutes. Problems: Subjective 24 Hr Interval Summary Free Text/Dictation Patient remains off BiPAP. Off pressors. "Feeling better." Exam/Review of Systems Vital Signs Vitals Vital Signs Date Time Temp Pulse Resp B/P Pulse Ox O2 Delivery O2 Flow Rate FiO2 02/14/17 07:45 84 99 02/14/17 07:30 98.6 02/14/17 07:00 141/69 Nasal Cannula 02/14/17 05:00 2.0 02/14/17 04:00 20 02/14/17 02:50 30 Intake and Output 02/13/17 02/13/17 02/14/17 15:00 23:00 07:00 Intake Total 360 ml Output Total 550 ml 650 ml 300 ml Balance -550 ml -290 ml -300 ml Exam General: Obese 61 year-old male lying in bed in no apparent distress. HEENT: Normocephalic, atraumatic. Eyes: Anicteric sclerae, conjunctivae clear. ENT: Nasal septum midline, oral mucosa moist. Neck supple, no JVD noticed. Respiratory: Bilaterally diminished breath sounds. No use of accessory muscles of respiration. Scattered rhonchi. Cardiovascular: S1, S2 heard. No murmurs or gallops. Abdomen: Soft, nontender, and nondistended. Bowel sounds positive in all 4 quadrants. Genitourinary: Deferred. Extremities: No cyanosis, no clubbing, trace B/L pedal edema. Peripheral pulses palpable. Neurologic: The patient is awake, alert, and oriented. Skin: Normal skin turgor. No skin rashes. Results Result Diagram: 02/14/17 0425 02/14/175 Results 24 hrs Laboratory Tests Test 02/13/17 08:50 02/13/17 09:37 02/13/17 11:46 02/13/17 15:42 Bedside Glucose 105 97 77 Body Fluid Type THORACENTESIS FLUID Body Fluid Volume 825.0 Body Fluid Color YELLOW Body Fluid Appearance HAZY Body Fluid WBC 108 Body Fluid RBC (Auto) 0 Body Fluid Polynuclear WBCs (%) 3.7 Body Fluid Mononuclear Cells % Auto 96.3 Body Fluid Other Cells Body Fluid Glucose 98 Body Fluid Total Protein 3.2 Body Fluid Lactate Dehydrogenase 307 Test 02/13/17 16:18 02/13/17 20:38 02/14/17 01:58 02/14/17 04:25 Bedside Glucose 81 161 280 H White Blood Count 6.5 # Red Blood Count 4.34 L Hemoglobin 11.7 L Hematocrit 38.2 L Mean Corpuscular Volume 88.0 Mean Corpuscular Hemoglobin 27.0 L Mean Corpuscular Hemoglobin Concent 30.6 L Red Cell Distribution Width 13.0 Platelet Count 281 # Mean Platelet Volume 9.9 Neutrophils % 84.7 H Lymphocytes % 13.3 L Monocytes % 1.5 Eosinophils % 0.0 Basophils % 0.2 Nucleated Red Blood Cells % 0.0 Neutrophils # 5.5 Lymphocytes # 0.9 Monocytes # 0.1 L Eosinophils # 0.0 Basophils # 0.0 Nucleated Red Blood Cells # 0.0 Sodium Level 143 Potassium Level 4.5 Chloride Level 101 Carbon Dioxide Level 36 H Anion Gap 11 Blood Urea Nitrogen 29 H Creatinine 1.02 Glucose Level 261 #H Calcium Level 9.0 Phosphorus Level 3.9 Magnesium Level 1.9 Test 02/14/17 05:00 02/14/17 07:43 Blood Gas Specimen Source Blood arterial Arterial Blood Date Drawn 02/14/2017 4:55:56 AM Arterial Blood pH (Temp corrected) 7.363 Arterial Blood pCO2 (Temp correct) 60.5 H Arterial Blood pO2 (Temp corrected) 100.3 H Arterial Blood HCO3 33.6 H Arterial Blood Base Excess 6.5 H Arterial Blood Oxygen Saturation 97.2 Rikki Test ACCEPTAB Arterial Blood Gas Puncture Site Right Radial Arterial Blood Carboxyhemoglobin 0.5 Arterial Blood Methemoglobin 0.1 Blood Gas A-a O2 Differential 86.2 H Oxyhemoglobin Percent 96.6 Total Hemoglobin 12.6 Blood Gas Temperature 37.0 Blood Gas Respiration Rate 18.0 Blood Gas Modality NASAL CANNULA FiO2 36.0 Blood Gas Notified Whom UP Blood Gas Notified Time 02/14/2017 5:09:58 AM Bedside Glucose 210 Medications Medications Current Medications Ferrous Sulfate (Ferrous Sulfate (Ec)) 325 mg BID PO Last administered on 20:39; Admin Dose 325 MG; Start 02/12/17 at 09:00 Gabapentin (Neurontin) 300 mg TID PO Last administered on 02/13/17 20:39; Admin Dose 300 MG; Start 02/12/17 at 09:00 Insulin Glargine (Lantus) 36 unit QHS SC Last administered on 02/13/17 20:42; Admin Dose 36 UNIT; Start 02/12/17 at 21:00 Metoprolol Succinate (Toprol Xl) 25 mg BID PO Last administered on 02/12/17 08 :59; Admin Dose 25 MG; Start 02/12/17 at 09:00; Status Future Hold Nifedipine (Procardia Xl) 60 mg DAILY PO Last administered on 02/12/17 08:59; Admin Dose 60 MG; Start 02/12/17 at 09:00; Status Future Hold Salmeterol Xinafoate/ Fluticasone (Advair 250/50 Diskus) 1 inh BID INH Last administered on 02/13/17 20:39; Admin Dose 1 INH; Start 02/12/17 at 09:00 Miscellaneous Information 1 ea NOTE XX ; Start 02/12/17 at 04:30 Glucose (Glutose) 15 gm Q15M PRN PO DECREASED GLUCOSE; Start 02/12/17 at 04:30 Glucose (Glutose) 22.5 gm Q15M PRN PO DECREASED GLUCOSE; Start 02/12/17 at 04: 30 Dextrose (D50w Syringe) 25 ml Q15M PRN IV DECREASED GLUCOSE Last administered on 02/13/17 08:18; Admin Dose 25 ML; Start 02/12/17 at 04:30 Dextrose (D50w Syringe) 50 ml Q15M PRN IV DECREASED GLUCOSE; Start 02/12/17 at 04:30 Glucagon (Glucagen) 1 mg Q15M PRN IM DECREASED GLUCOSE; Start 02/12/17 at 04:30 Glucose (Glutose) 15 gm Q15M PRN BUCCAL DECREASED GLUCOSE; Start 02/12/17 at 04 :30 Ondansetron HCl (Zofran Inj) 4 mg Q6H PRN IV NAUSEA AND/OR VOMITING; Start 02/12/17 at 04:30 Aspirin (Aspirin) 81 mg DAILY PO Last administered on 02/12/17 09:00; Admin Dose 81 MG; Start 02/12/17 at 09:00 Nitroglycerin (Nitroglycerin (Sl Tab) 0.4 Mg) 1 tab Q5M PRN SL CHEST PAIN; Start 02/12/17 at 04:30 Acetaminophen (Tylenol Tab) 650 mg Q6H PRN PO PAIN LEVEL 1-3 OR FEVER Last administered on 02/13/17 20:00; Admin Dose 650 MG; Start 02/12/17 at 04:30 Morphine Sulfate (morphine) 2 mg Q4H PRN IV PAIN LEVEL 7-10 Last administered on 02/12/17 07:14; Admin Dose 2 MG; Start 02/12/17 at 04:30 Docusate Sodium (Colace) 100 mg Q12H PRN PO CONSTIPATION; Start 02/12/17 at 04: 30 Bisacodyl (Dulcolax) 5 mg DAILY PRN PO CONSTIPATION; Start 02/12/17 at 04:30 Famotidine (Pepcid) 20 mg Q12 PO Last administered on 02/13/17 20:39; Admin Dose 20 MG; Start 02/12/17 at 09:00 Diagnostic Test (Pha) (Accu-Chek) 1 ea 02 XX Last administered on 02/14/17 02: 00; Admin Dose 1 EA; Start 02/13/17 at 02:00 Diagnostic Test (Pha) 1 ea 1 ea 02 XX Last administered on 02/14/17 02:00; Admin Dose 1 EA; Start 02/13/17 at 02:00 Levofloxacin/ Dextrose (Levaquin 500mg/ D5W 100 ml (Pmx)) 100 ml @ 100 mls/hr Q48H IVPB ; Start 02/14/17 at 13:00 Heparin Sodium (Porcine) (Heparin (5000 Units/0.5 ml)) 5,000 unit Q8 SC Last administered on 02/14/17 05:43; Admin Dose 5,000 UNIT; Start 02/13/17 at 14:00 Methylprednisolone Sodium Succinate (Solu-Medrol) 40 mg Q12 IV Last administered on 02/13/17 20:39; Admin Dose 40 MG; Start 02/13/17 at 14:00 NILES AYALA NP Feb 14, 2017 08:25
[2017-02-14] MEDS: ALBUTEROL/IPRATROPIUM (NEB) 3 ML AMP HHN SCH ×3 (08:27→20:48)
[2017-02-14] MEDS: METHYLPREDNISOLONE 40 MG INJ IV SCH ×2 (08:42→21:46)
[2017-02-14] MEDS: GABAPENTIN 300 MG CAP PO SCH ×3 (08:42→21:35)
[2017-02-14] MEDS: ASPIRIN 81 MG TAB PO SCH (08:42)
[2017-02-14] MEDS: SALMETEROL/FLUTICASONE 250/50 INHA INH SCH ×2 (08:42→21:35)
[2017-02-14] MEDS: FERROUS SULFATE (EC) 325 MG TAB PO SCH ×2 (08:42→21:35)
[2017-02-14] MEDS: FAMOTIDINE 20 MG TAB PO SCH ×2 (08:42→21:35)
[2017-02-14] MEDS: NIFEdipine (XL) 60 MG TAB PO SCH (09:39)
--- NOTE | 2017-02-14 10:35 | CONS ---
Date/Time of Note Date/Time of Note DATE: 02/14/17 TIME: 10:32 Assessment/Plan Assessment/Plan Chief Complaint/Hosp Course 51-year-old male with a history of COPD with CO2 retention, HTN, DM, CHF, who was transferred from an outside facility after running out of lasix, noted to be in pulmonary edema, transiently requiring NiPPV via BiPAP. Renal has been consulted fro PAT vs PAT on CKD. Problems: Additional Assessment/Plan 1. Non oliguric acute kidney injury on chronic kidney disease 2/2 hemodynamics from pulmonary edema and CHF, pt ran out of lasix 2. Chronic kidney disease III secondary to a diabetic Nephropathy 3. Acute Resp failure hypoxic due to pulmoanry edema and CHF due to ran out of lasix 4. acute COPD Exacerbation 5. acute CHF exacerbaton , acute on chronic, diastoilc, ECHO showed ejection fraction, 62 to 65 with stage I diastolic dysfunction. 6. History of hyperlipidemia. 7. History of diabetes mellitus 8. Moderate right pleural effusion s/p throacentesis US guided 02/13/2017- 1.2 L removed Plan : US guided Thoracentesis done yesterda 1.2 L removed, Bp stable, in systolic 140s , off levophed, now telemetry status, will start lasix 20mg IV x 1 now and then 20mg PO BID pulmonary has been following pt , on IV solu-medrol for COPD exacerbation. Cr improved much better, other electrolytes stable pt had a full CKD work up done on last admission no need to repeat it will continue to follow up Consultation Date/Type/Reason Admit Date/Time Feb 12, 2017 at 02:12 Initial Consult Date 02/13/17 Type of Consultation: NEPHROLOGY Referring Provider: BRENDA CHAVEZ 24 HR Interval Summary Free Text/Dictation s/p thoracentesis 1.2 L removed, BP stable, afebrile, no chest pain, less SOb, on telemetry floor Exam/Review of Systems Vital Signs Vitals Vital Signs Date Time Temp Pulse Resp B/P Pulse Ox O2 Delivery O2 Flow Rate FiO2 02/14/17 08:29 77 12 100 Nasal Cannula 2.0 28 02/14/17 07:30 98.6 02/14/17 07:00 141/69 Intake and Output 02/13/17 02/13/17 02/14/17 15:00 23:00 07:00 Intake Total 360 ml Output Total 550 ml 650 ml 300 ml Balance -550 ml -290 ml -300 ml Exam Constitutional: alert, oriented, well developed Respiratory: crackles/rales RML and RLL, no wheezing Cardiovascular: nl pulses, regular rate and rhythm Gastrointestinal: nl liver, spleen, soft Extremities: normal pulses Results Result Diagram: 02/14/17 0425 02/14/17 0425 Results 24 hrs Laboratory Tests Test 02/13/17 11:46 02/13/17 15:42 02/13/17 16:18 02/13/17 20:38 Bedside Glucose 77 81 161 Body Fluid Type THORACENTESIS FLUID Body Fluid Volume 825.0 Body Fluid Color YELLOW Body Fluid Appearance HAZY Body Fluid WBC 108 Body Fluid RBC (Auto) 0 Body Fluid Polynuclear WBCs (%) 3.7 Body Fluid Mononuclear Cells % Auto 96.3 Body Fluid Other Cells Body Fluid Glucose 98 Body Fluid Total Protein 3.2 Body Fluid Lactate Dehydrogenase 307 Test 02/14/17 01:58 02/14/17 04:25 02/14/17 05:00 02/14/17 07:43 Bedside Glucose 280 H 210 White Blood Count 6.5 # Red Blood Count 4.34 L Hemoglobin 11.7 L Hematocrit 38.2 L Mean Corpuscular Volume 88.0 Mean Corpuscular Hemoglobin 27.0 L Mean Corpuscular Hemoglobin Concent 30.6 L Red Cell Distribution Width 13.0 Platelet Count 281 # Mean Platelet Volume 9.9 Neutrophils % 84.7 H Lymphocytes % 13.3 L Monocytes % 1.5 Eosinophils % 0.0 Basophils % 0.2 Nucleated Red Blood Cells % 0.0 Neutrophils # 5.5 Lymphocytes # 0.9 Monocytes # 0.1 L Eosinophils # 0.0 Basophils # 0.0 Nucleated Red Blood Cells # 0.0 Sodium Level 143 Potassium Level 4.5 Chloride Level 101 Carbon Dioxide Level 36 H Anion Gap 11 Blood Urea Nitrogen 29 H Creatinine 1.02 Glucose Level 261 #H Calcium Level 9.0 Phosphorus Level 3.9 Magnesium Level 1.9 Blood Gas Specimen Source Blood arterial Arterial Blood Date Drawn 02/14/2017 4:55:56 AM Arterial Blood pH (Temp corrected) 7.363 Arterial Blood pCO2 (Temp correct) 60.5 H Arterial Blood pO2 (Temp corrected) 100.3 H Arterial Blood HCO3 33.6 H Arterial Blood Base Excess 6.5 H Arterial Blood Oxygen Saturation 97.2 Rikki Test ACCEPTAB Arterial Blood Gas Puncture Site Right Radial Arterial Blood Carboxyhemoglobin 0.5 Arterial Blood Methemoglobin 0.1 Blood Gas A-a O2 Differential 86.2 H Oxyhemoglobin Percent 96.6 Total Hemoglobin 12.6 Blood Gas Temperature 37.0 Blood Gas Respiration Rate 18.0 Blood Gas Modality NASAL CANNULA FiO2 36.0 Blood Gas Notified Whom UP Blood Gas Notified Time 02/14/2017 5:09:58 AM Medications Medications Current Medications Ferrous Sulfate (Ferrous Sulfate (Ec)) 325 mg BID PO Last administered on 08:42; Admin Dose 325 MG; Start 02/12/17 at 09:00 Gabapentin (Neurontin) 300 mg TID PO Last administered on 02/14/17 08:42; Admin Dose 300 MG; Start 02/12/17 at 09:00 Insulin Glargine (Lantus) 36 unit QHS SC Last administered on 02/13/17 20:42; Admin Dose 36 UNIT; Start 02/12/17 at 21:00 Metoprolol Succinate (Toprol Xl) 25 mg BID PO Last administered on 02/12/17 08 :59; Admin Dose 25 MG; Start 02/12/17 at 09:00; Status Future Hold Nifedipine (Procardia Xl) 60 mg DAILY PO Last administered on 02/14/17 09:39; Admin Dose 60 MG; Start 02/12/17 at 09:00; Status Future hold Salmeterol Xinafoate/ Fluticasone (Advair 250/50 Diskus) 1 inh BID INH Last administered on 02/14/17 08:42; Admin Dose 1 INH; Start 02/12/17 at 09:00 Miscellaneous Information 1 ea NOTE XX ; Start 02/12/17 at 04:30 Glucose (Glutose) 15 gm Q15M PRN PO DECREASED GLUCOSE; Start 02/12/17 at 04:30 Glucose (Glutose) 22.5 gm Q15M PRN PO DECREASED GLUCOSE; Start 02/12/17 at 04: 30 Dextrose (D50w Syringe) 25 ml Q15M PRN IV DECREASED GLUCOSE Last administered on 02/13/17 08:18; Admin Dose 25 ML; Start 02/12/17 at 04:30 Dextrose (D50w Syringe) 50 ml Q15M PRN IV DECREASED GLUCOSE; Start 02/12/17 at 04:30 Glucagon (Glucagen) 1 mg Q15M PRN IM DECREASED GLUCOSE; Start 02/12/17 at 04:30 Glucose (Glutose) 15 gm Q15M PRN BUCCAL DECREASED GLUCOSE; Start 02/12/17 at 04 :30 Ondansetron HCl (Zofran Inj) 4 mg Q6H PRN IV NAUSEA AND/OR VOMITING; Start 02/12/17 at 04:30 Aspirin (Aspirin) 81 mg DAILY PO Last administered on 02/14/17 08:42; Admin Dose 81 MG; Start 02/12/17 at 09:00 Nitroglycerin (Nitroglycerin (Sl Tab) 0.4 Mg) 1 tab Q5M PRN SL CHEST PAIN; Start 02/12/17 at 04:30 Acetaminophen (Tylenol Tab) 650 mg Q6H PRN PO PAIN LEVEL 1-3 OR FEVER Last administered on 02/13/17 20:00; Admin Dose 650 MG; Start 02/12/17 at 04:30 Morphine Sulfate (morphine) 2 mg Q4H PRN IV PAIN LEVEL 7-10 Last administered on 02/12/17 07:14; Admin Dose 2 MG; Start 02/12/17 at 04:30 Docusate Sodium (Colace) 100 mg Q12H PRN PO CONSTIPATION; Start 02/12/17 at 04: 30 Bisacodyl (Dulcolax) 5 mg DAILY PRN PO CONSTIPATION; Start 02/12/17 at 04:30 Famotidine (Pepcid) 20 mg Q12 PO Last administered on 02/14/17 08:42; Admin Dose 20 MG; Start 02/12/17 at 09:00 Diagnostic Test (Pha) (Accu-Chek) 1 ea 02 XX Last administered on 02/14/17 02: 00; Admin Dose 1 EA; Start 02/13/17 at 02:00 Diagnostic Test (Pha) 1 ea 1 ea 02 XX Last administered on 02/14/17 02:00; Admin Dose 1 EA; Start 02/13/17 at 02:00 Levofloxacin/ Dextrose (Levaquin 500mg/ D5W 100 ml (Pmx)) 100 ml @ 100 mls/hr Q48H IVPB ; Start 02/14/17 at 13:00 Heparin Sodium (Porcine) (Heparin (5000 Units/0.5 ml)) 5,000 unit Q8 SC Last administered on 02/14/17 05:43; Admin Dose 5,000 UNIT; Start 02/13/17 at 14:00 Methylprednisolone Sodium Succinate (Solu-Medrol) 40 mg Q12 IV Last administered on 02/14/17 08:42; Admin Dose 40 MG; Start 02/13/17 at 14:00 BON GUERRERO MD Feb 14, 2017 10:35
[2017-02-14] MEDS ORDERED: FUROSEMIDE 20 MG INJ IV ONE (11:00)
[2017-02-14] MEDS: LEVOFLOXACIN 500MG/D5W (PMX) 100 ML IVPB SCH (12:05)
--- NOTE | 2017-02-14 13:42 | CONS ---
Date/Time of Note Date/Time of Note DATE: 02/14/17 TIME: 13:40 Consult Date/Type/Reason Admit Date/Time Feb 12, 2017 at 02:12 Initial Consult Date 02/13/17 Type of Consultation: Pulm/CCM Ordering Provider: BRENDA CHAVEZ Subjective Overall better, s/p thoracentesis x 1.2 L yesterday. Objective Vital Signs Date Time Temp Pulse Resp B/P Pulse Ox O2 Delivery O2 Flow Rate FiO2 02/14/17 13:10 93 22 Nasal Cannula 2.0 100 02/14/17 13:10 100 02/14/17 12:00 98.5 147/74 Intake and Output 02/13/17 02/13/17 02/14/17 15:00 23:00 07:00 Intake Total 360 ml Output Total 550 ml 650 ml 300 ml Balance -550 ml -290 ml -300 ml Exam HEENT: Neck supple; no JVD; no LAD CVS: RRR, S1 and S2 CHEST: Bibasilar rales with occ rhonchi B/L ABD: Soft, NT, + BS EXT: No c/c; trace edema Results/Medications Result Diagram: 02/14/17 0425 02/14/17 0425 Results 24 hrs Laboratory Tests Test 02/13/17 15:42 02/13/17 16:18 02/13/17 20:38 02/14/17 01:58 Body Fluid Type THORACENTESIS FLUID Body Fluid Volume 825.0 Body Fluid Color YELLOW Body Fluid Appearance HAZY Body Fluid WBC 108 Body Fluid RBC (Auto) 0 Body Fluid Polynuclear WBCs (%) 3.7 Body Fluid Mononuclear Cells % Auto 96.3 Body Fluid Other Cells Body Fluid Glucose 98 Body Fluid Total Protein 3.2 Body Fluid Lactate Dehydrogenase 307 Bedside Glucose 81 161 280 H Test 02/14/17 04:25 02/14/17 05:00 02/14/17 07:43 02/14/17 11:56 White Blood Count 6.5 # Red Blood Count 4.34 L Hemoglobin 11.7 L Hematocrit 38.2 L Mean Corpuscular Volume 88.0 Mean Corpuscular Hemoglobin 27.0 L Mean Corpuscular Hemoglobin Concent 30.6 L Red Cell Distribution Width 13.0 Platelet Count 281 # Mean Platelet Volume 9.9 Neutrophils % 84.7 H Lymphocytes % 13.3 L Monocytes % 1.5 Eosinophils % 0.0 Basophils % 0.2 Nucleated Red Blood Cells % 0.0 Neutrophils # 5.5 Lymphocytes # 0.9 Monocytes # 0.1 L Eosinophils # 0.0 Basophils # 0.0 Nucleated Red Blood Cells # 0.0 Sodium Level 143 Potassium Level 4.5 Chloride Level 101 Carbon Dioxide Level 36 H Anion Gap 11 Blood Urea Nitrogen 29 H Creatinine 1.02 Glucose Level 261 #H Calcium Level 9.0 Phosphorus Level 3.9 Magnesium Level 1.9 Blood Gas Specimen Source Blood arterial Arterial Blood Date Drawn 02/14/2017 4:55:56 AM Arterial Blood pH (Temp corrected) 7.363 Arterial Blood pCO2 (Temp correct) 60.5 H Arterial Blood pO2 (Temp corrected) 100.3 H Arterial Blood HCO3 33.6 H Arterial Blood Base Excess 6.5 H Arterial Blood Oxygen Saturation 97.2 Rikki Test ACCEPTAB Arterial Blood Gas Puncture Site Right Radial Arterial Blood Carboxyhemoglobin 0.5 Arterial Blood Methemoglobin 0.1 Blood Gas A-a O2 Differential 86.2 H Oxyhemoglobin Percent 96.6 Total Hemoglobin 12.6 Blood Gas Temperature 37.0 Blood Gas Respiration Rate 18.0 Blood Gas Modality NASAL CANNULA FiO2 36.0 Blood Gas Notified Whom UP Blood Gas Notified Time 02/14/2017 5:09:58 AM Bedside Glucose 210 290 H Medications Current Medications Ferrous Sulfate (Ferrous Sulfate (Ec)) 325 mg BID PO Last administered on 08:42; Admin Dose 325 MG; Start 02/12/17 at 09:00 Gabapentin (Neurontin) 300 mg TID PO Last administered on 02/14/17 12:09; Admin Dose 300 MG; Start 02/12/17 at 09:00 Insulin Glargine (Lantus) 36 unit QHS SC Last administered on 02/13/17 20:42; Admin Dose 36 UNIT; Start 02/12/17 at 21:00 Metoprolol Succinate (Toprol Xl) 25 mg BID PO Last administered on 02/12/17 08 :59; Admin Dose 25 MG; Start 02/12/17 at 09:00; Status Future Hold Nifedipine (Procardia Xl) 60 mg DAILY PO Last administered on 02/14/17 09:39; Admin Dose 60 MG; Start 02/12/17 at 09:00; Status Future hold Salmeterol Xinafoate/ Fluticasone (Advair 250/50 Diskus) 1 inh BID INH Last administered on 02/14/17 08:42; Admin Dose 1 INH; Start 02/12/17 at 09:00 Miscellaneous Information 1 ea NOTE XX ; Start 02/12/17 at 04:30 Glucose (Glutose) 15 gm Q15M PRN PO DECREASED GLUCOSE; Start 02/12/17 at 04:30 Glucose (Glutose) 22.5 gm Q15M PRN PO DECREASED GLUCOSE; Start 02/12/17 at 04: 30 Dextrose (D50w Syringe) 25 ml Q15M PRN IV DECREASED GLUCOSE Last administered on 02/13/17 08:18; Admin Dose 25 ML; Start 02/12/17 at 04:30 Dextrose (D50w Syringe) 50 ml Q15M PRN IV DECREASED GLUCOSE; Start 02/12/17 at 04:30 Glucagon (Glucagen) 1 mg Q15M PRN IM DECREASED GLUCOSE; Start 02/12/17 at 04:30 Glucose (Glutose) 15 gm Q15M PRN BUCCAL DECREASED GLUCOSE; Start 02/12/17 at 04 :30 Ondansetron HCl (Zofran Inj) 4 mg Q6H PRN IV NAUSEA AND/OR VOMITING; Start 02/12/17 at 04:30 Aspirin (Aspirin) 81 mg DAILY PO Last administered on 02/14/17 08:42; Admin Dose 81 MG; Start 02/12/17 at 09:00 Nitroglycerin (Nitroglycerin (Sl Tab) 0.4 Mg) 1 tab Q5M PRN SL CHEST PAIN; Start 02/12/17 at 04:30 Acetaminophen (Tylenol Tab) 650 mg Q6H PRN PO PAIN LEVEL 1-3 OR FEVER Last administered on 02/13/17 20:00; Admin Dose 650 MG; Start 02/12/17 at 04:30 Morphine Sulfate (morphine) 2 mg Q4H PRN IV PAIN LEVEL 7-10 Last administered on 02/12/17 07:14; Admin Dose 2 MG; Start 02/12/17 at 04:30 Docusate Sodium (Colace) 100 mg Q12H PRN PO CONSTIPATION; Start 02/12/17 at 04: 30 Bisacodyl (Dulcolax) 5 mg DAILY PRN PO CONSTIPATION; Start 02/12/17 at 04:30 Famotidine (Pepcid) 20 mg Q12 PO Last administered on 02/14/17 08:42; Admin Dose 20 MG; Start 02/12/17 at 09:00 Diagnostic Test (Pha) (Accu-Chek) 1 ea 02 XX Last administered on 02/14/17 02: 00; Admin Dose 1 EA; Start 02/13/17 at 02:00 Diagnostic Test (Pha) 1 ea 1 ea 02 XX Last administered on 02/14/17 02:00; Admin Dose 1 EA; Start 02/13/17 at 02:00 Levofloxacin/ Dextrose (Levaquin 500mg/ D5W 100 ml (Pmx)) 100 ml @ 100 mls/hr Q48H IVPB Last administered on 02/14/17 12:05; Admin Dose 100 MLS/HR; Start 02/14/17 at 13:00 Heparin Sodium (Porcine) (Heparin (5000 Units/0.5 ml)) 5,000 unit Q8 SC Last administered on 02/14/17 05:43; Admin Dose 5,000 UNIT; Start 02/13/17 at 14:00 Methylprednisolone Sodium Succinate (Solu-Medrol) 40 mg Q12 IV Last administered on 02/14/17 08:42; Admin Dose 40 MG; Start 02/13/17 at 14:00 Assessment/Plan Chief Complaint/Hosp Course Briefly, this is a 51-year-old male with a history of COPD with CO2 retention, HTN, DM, CHF, who was transferred from an outside facility after running out of lasix, noted to be in pulmonary edema, transiently requiring NiPPV via BiPAP. Problems: Additional Assessment/Plan IMP: 1. Acute on chronic hypoxemic and hypercapnic resp insufficiency: due to CHF and co-existing COPD exacerbation 2. Decompensated HF 3. COPD Exacerbation 4. PAT--resolving 5. Right effusion--appears to be lymphocytic predominant exudative effusion RECS: 1. Titrate FiO2 to SpO2 88-92% 2. Continue diuresis 3. Follow-up ECHO 4. BDs 5. CS--> taper 6. Abx 35 min cc time GARY MARI MD Feb 14, 2017 13:42
--- NOTE | 2017-02-14 14:10 | CONS ---
Date/Time of Note Date/Time of Note DATE: 02/14/17 TIME: 14:08 Assessment/Plan Assessment/Plan Additional Assessment/Plan Acute exacerbation of congestive heart failure Hypoxic respiratory failure Pleural effusion s/p right thoracentesis Acute on chronic CKD COPD Hyperlipidemia Hypertension Diabetes Hemodynamically stable Continue Oxygen Continue ASA Avoid GLORIA-I/ARBs due to renal failure Avoid nephrotoxins Continue Insulin Continue Methylprednisone Continue Antibiotics Continue GI Prophylaxis Consultation Date/Type/Reason Admit Date/Time Feb 12, 2017 at 02:12 Initial Consult Date 02/13/17 Type of Consultation: Pulm/CCM Referring Provider: BRENDA CHAVEZ Exam/Review of Systems Vital Signs Vitals Vital Signs Date Time Temp Pulse Resp B/P Pulse Ox O2 Delivery O2 Flow Rate FiO2 02/14/17 13:10 93 22 Nasal Cannula 2.0 100 02/14/17 13:10 100 02/14/17 13:00 157/82 02/14/17 12:00 98.5 Intake and Output 02/13/17 02/13/17 02/14/17 15:00 23:00 07:00 Intake Total 360 ml Output Total 550 ml 650 ml 300 ml Balance -550 ml -290 ml -300 ml Exam Constitutional: alert, oriented Head: atraumatic, normocephalic Neck: non-tender, supple Respiratory: diminished breath sounds Cardiovascular: regular rate and rhythm, no m/r/g Gastrointestinal: nl liver, spleen, non-tender, soft Extremities: normal pulses Results Result Diagram: 02/14/17 0425 02/14/17 0425 Results 24 hrs Laboratory Tests Test 02/13/17 15:42 02/13/17 16:18 02/13/17 20:38 02/14/17 01:58 Body Fluid Type THORACENTESIS FLUID Body Fluid Volume 825.0 Body Fluid Color YELLOW Body Fluid Appearance HAZY Body Fluid WBC 108 Body Fluid RBC (Auto) 0 Body Fluid Polynuclear WBCs (%) 3.7 Body Fluid Mononuclear Cells % Auto 96.3 Body Fluid Other Cells Body Fluid Glucose 98 Body Fluid Total Protein 3.2 Body Fluid Lactate Dehydrogenase 307 Bedside Glucose 81 161 280 H Test 02/14/17 04:25 02/14/17 05:00 02/14/17 07:43 02/14/17 11:56 White Blood Count 6.5 # Red Blood Count 4.34 L Hemoglobin 11.7 L Hematocrit 38.2 L Mean Corpuscular Volume 88.0 Mean Corpuscular Hemoglobin 27.0 L Mean Corpuscular Hemoglobin Concent 30.6 L Red Cell Distribution Width 13.0 Platelet Count 281 # Mean Platelet Volume 9.9 Neutrophils % 84.7 H Lymphocytes % 13.3 L Monocytes % 1.5 Eosinophils % 0.0 Basophils % 0.2 Nucleated Red Blood Cells % 0.0 Neutrophils # 5.5 Lymphocytes # 0.9 Monocytes # 0.1 L Eosinophils # 0.0 Basophils # 0.0 Nucleated Red Blood Cells # 0.0 Sodium Level 143 Potassium Level 4.5 Chloride Level 101 Carbon Dioxide Level 36 H Anion Gap 11 Blood Urea Nitrogen 29 H Creatinine 1.02 Glucose Level 261 #H Calcium Level 9.0 Phosphorus Level 3.9 Magnesium Level 1.9 Blood Gas Specimen Source Blood arterial Arterial Blood Date Drawn 02/14/2017 4:55:56 AM Arterial Blood pH (Temp corrected) 7.363 Arterial Blood pCO2 (Temp correct) 60.5 H Arterial Blood pO2 (Temp corrected) 100.3 H Arterial Blood HCO3 33.6 H Arterial Blood Base Excess 6.5 H Arterial Blood Oxygen Saturation 97.2 Rikki Test ACCEPTAB Arterial Blood Gas Puncture Site Right Radial Arterial Blood Carboxyhemoglobin 0.5 Arterial Blood Methemoglobin 0.1 Blood Gas A-a O2 Differential 86.2 H Oxyhemoglobin Percent 96.6 Total Hemoglobin 12.6 Blood Gas Temperature 37.0 Blood Gas Respiration Rate 18.0 Blood Gas Modality NASAL CANNULA FiO2 36.0 Blood Gas Notified Whom UP Blood Gas Notified Time 02/14/2017 5:09:58 AM Bedside Glucose 210 290 H Medications Medications Current Medications Ferrous Sulfate (Ferrous Sulfate (Ec)) 325 mg BID PO Last administered on 08:42; Admin Dose 325 MG; Start 02/12/17 at 09:00 Gabapentin (Neurontin) 300 mg TID PO Last administered on 02/14/17 12:09; Admin Dose 300 MG; Start 02/12/17 at 09:00 Insulin Glargine (Lantus) 36 unit QHS SC Last administered on 02/13/17 20:42; Admin Dose 36 UNIT; Start 02/12/17 at 21:00 Metoprolol Succinate (Toprol Xl) 25 mg BID PO Last administered on 02/12/17 08 :59; Admin Dose 25 MG; Start 02/12/17 at 09:00; Status Future Hold Nifedipine (Procardia Xl) 60 mg DAILY PO Last administered on 02/14/17 09:39; Admin Dose 60 MG; Start 02/12/17 at 09:00; Status Future hold Salmeterol Xinafoate/ Fluticasone (Advair 250/50 Diskus) 1 inh BID INH Last administered on 02/14/17 08:42; Admin Dose 1 INH; Start 02/12/17 at 09:00 Miscellaneous Information 1 ea NOTE XX ; Start 02/12/17 at 04:30 Glucose (Glutose) 15 gm Q15M PRN PO DECREASED GLUCOSE; Start 02/12/17 at 04:30 Glucose (Glutose) 22.5 gm Q15M PRN PO DECREASED GLUCOSE; Start 02/12/17 at 04: 30 Dextrose (D50w Syringe) 25 ml Q15M PRN IV DECREASED GLUCOSE Last administered on 02/13/17 08:18; Admin Dose 25 ML; Start 02/12/17 at 04:30 Dextrose (D50w Syringe) 50 ml Q15M PRN IV DECREASED GLUCOSE; Start 02/12/17 at 04:30 Glucagon (Glucagen) 1 mg Q15M PRN IM DECREASED GLUCOSE; Start 02/12/17 at 04:30 Glucose (Glutose) 15 gm Q15M PRN BUCCAL DECREASED GLUCOSE; Start 02/12/17 at 04 :30 Ondansetron HCl (Zofran Inj) 4 mg Q6H PRN IV NAUSEA AND/OR VOMITING; Start 02/12/17 at 04:30 Aspirin (Aspirin) 81 mg DAILY PO Last administered on 02/14/17 08:42; Admin Dose 81 MG; Start 02/12/17 at 09:00 Nitroglycerin (Nitroglycerin (Sl Tab) 0.4 Mg) 1 tab Q5M PRN SL CHEST PAIN; Start 02/12/17 at 04:30 Acetaminophen (Tylenol Tab) 650 mg Q6H PRN PO PAIN LEVEL 1-3 OR FEVER Last administered on 02/13/17 20:00; Admin Dose 650 MG; Start 02/12/17 at 04:30 Morphine Sulfate (morphine) 2 mg Q4H PRN IV PAIN LEVEL 7-10 Last administered on 02/12/17 07:14; Admin Dose 2 MG; Start 02/12/17 at 04:30 Docusate Sodium (Colace) 100 mg Q12H PRN PO CONSTIPATION; Start 02/12/17 at 04: 30 Bisacodyl (Dulcolax) 5 mg DAILY PRN PO CONSTIPATION; Start 02/12/17 at 04:30 Famotidine (Pepcid) 20 mg Q12 PO Last administered on 02/14/17 08:42; Admin Dose 20 MG; Start 02/12/17 at 09:00 Diagnostic Test (Pha) (Accu-Chek) 1 ea 02 XX Last administered on 02/14/17 02: 00; Admin Dose 1 EA; Start 02/13/17 at 02:00 Diagnostic Test (Pha) 1 ea 1 ea 02 XX Last administered on 02/14/17 02:00; Admin Dose 1 EA; Start 02/13/17 at 02:00 Levofloxacin/ Dextrose (Levaquin 500mg/ D5W 100 ml (Pmx)) 100 ml @ 100 mls/hr Q48H IVPB Last administered on 02/14/17 12:05; Admin Dose 100 MLS/HR; Start 02/14/17 at 13:00 Heparin Sodium (Porcine) (Heparin (5000 Units/0.5 ml)) 5,000 unit Q8 SC Last administered on 02/14/17 13:41; Admin Dose 5,000 UNIT; Start 02/13/17 at 14:00 Methylprednisolone Sodium Succinate (Solu-Medrol) 40 mg Q12 IV Last administered on 02/14/17 08:42; Admin Dose 40 MG; Start 02/13/17 at 14:00 RADU LEGGETT M.D. Feb 14, 2017 14:10
--- NOTE | 2017-02-14 14:12 | RADRPT ---
PROCEDURE: XR Chest. CLINICAL INDICATION: Shortness of breath TECHNIQUE: Anterior chest x-ray. COMPARISON: 11/28/2016 FINDINGS: There is pulmonary vascular congestion. There is mild bibasilar consolidation, unchanged from previous exam.. Small to moderate right pleural effusion, slightly increased from previous exam.. The heart size is large. There is atherosclerotic calcification of the aorta. The cardiomediastinal contour is otherwise unremarkable. The soft tissues and bony structures are unremarkable. IMPRESSION: 1. Cardiomegaly with pulmonary vascular congestion and pleural effusion. Findings suggest CHF, sli ghtly worse than previous exam. 2. No definite evidence of pneumonia. RPTAT: QQ .Rafiq Barahona MD, MD Date Time Electronically viewed and signed by .Rafiq Barahona MD, on 02/14/2017 14:12 .M/
--- NOTE | 2017-02-14 16:34 | CONS ---
Date/Time of Note Date/Time of Note DATE: 02/14/17 TIME: 16:33 Assessment/Plan Assessment/Plan Additional Assessment/Plan Acute exacerbation of congestive heart failure Hypoxic respiratory failure Pleural effusion s/p right thoracentesis Acute on chronic CKD COPD Hyperlipidemia Hypertension Diabetes Hemodynamically stable Continue Oxygen Continue ASA Avoid GLORIA-I/ARBs due to renal failure Avoid nephrotoxins Continue Insulin Continue Methylprednisone Continue Antibiotics Continue GI Prophylaxis Consultation Date/Type/Reason Admit Date/Time Feb 12, 2017 at 02:12 Initial Consult Date 02/13/17 Type of Consultation: Pulm/CCM Referring Provider: BRENDA CHAVEZ Exam/Review of Systems Vital Signs Vitals Vital Signs Date Time Temp Pulse Resp B/P Pulse Ox O2 Delivery O2 Flow Rate FiO2 02/14/17 16:07 94 02/14/17 15:00 Nasal Cannula 2.0 02/14/17 14:00 27 169/80 100 02/14/17 13:10 100 02/14/17 12:00 98.5 Intake and Output 02/13/17 02/13/17 02/14/17 15:00 23:00 07:00 Intake Total 360 ml Output Total 550 ml 650 ml 300 ml Balance -550 ml -290 ml -300 ml Exam Constitutional: alert, oriented Head: atraumatic, normocephalic Neck: non-tender, supple Respiratory: diminished breath sounds Cardiovascular: regular rate and rhythm Gastrointestinal: nl liver, spleen, non-tender, soft Extremities: normal pulses Results Result Diagram: 02/14/17 0425 02/14/17 0425 Results 24 hrs Laboratory Tests Test 02/13/17 20:38 02/14/17 01:58 02/14/17 04:25 02/14/17 05:00 Bedside Glucose 161 280 H White Blood Count 6.5 # Red Blood Count 4.34 L Hemoglobin 11.7 L Hematocrit 38.2 L Mean Corpuscular Volume 88.0 Mean Corpuscular Hemoglobin 27.0 L Mean Corpuscular Hemoglobin Concent 30.6 L Red Cell Distribution Width 13.0 Platelet Count 281 # Mean Platelet Volume 9.9 Neutrophils % 84.7 H Lymphocytes % 13.3 L Monocytes % 1.5 Eosinophils % 0.0 Basophils % 0.2 Nucleated Red Blood Cells % 0.0 Neutrophils # 5.5 Lymphocytes # 0.9 Monocytes # 0.1 L Eosinophils # 0.0 Basophils # 0.0 Nucleated Red Blood Cells # 0.0 Sodium Level 143 Potassium Level 4.5 Chloride Level 101 Carbon Dioxide Level 36 H Anion Gap 11 Blood Urea Nitrogen 29 H Creatinine 1.02 Glucose Level 261 #H Calcium Level 9.0 Phosphorus Level 3.9 Magnesium Level 1.9 Blood Gas Specimen Source Blood arterial Arterial Blood Date Drawn 02/14/2017 4:55:56 AM Arterial Blood pH (Temp corrected) 7.363 Arterial Blood pCO2 (Temp correct) 60.5 H Arterial Blood pO2 (Temp corrected) 100.3 H Arterial Blood HCO3 33.6 H Arterial Blood Base Excess 6.5 H Arterial Blood Oxygen Saturation 97.2 Rikki Test ACCEPTAB Arterial Blood Gas Puncture Site Right Radial Arterial Blood Carboxyhemoglobin 0.5 Arterial Blood Methemoglobin 0.1 Blood Gas A-a O2 Differential 86.2 H Oxyhemoglobin Percent 96.6 Total Hemoglobin 12.6 Blood Gas Temperature 37.0 Blood Gas Respiration Rate 18.0 Blood Gas Modality NASAL CANNULA FiO2 36.0 Blood Gas Notified Whom UP Blood Gas Notified Time 02/14/2017 5:09:58 AM Test 02/14/17 07:43 02/14/17 11:56 Bedside Glucose 210 290 H Medications Medications Current Medications Ferrous Sulfate (Ferrous Sulfate (Ec)) 325 mg BID PO Last administered on 08:42; Admin Dose 325 MG; Start 02/12/17 at 09:00 Gabapentin (Neurontin) 300 mg TID PO Last administered on 02/14/17 12:09; Admin Dose 300 MG; Start 02/12/17 at 09:00 Insulin Glargine (Lantus) 36 unit QHS SC Last administered on 02/13/17 20:42; Admin Dose 36 UNIT; Start 02/12/17 at 21:00 Metoprolol Succinate (Toprol Xl) 25 mg BID PO Last administered on 02/12/17 08 :59; Admin Dose 25 MG; Start 02/12/17 at 09:00; Status Future Hold Nifedipine (Procardia Xl) 60 mg DAILY PO Last administered on 02/14/17 09:39; Admin Dose 60 MG; Start 02/12/17 at 09:00; Status Future hold Salmeterol Xinafoate/ Fluticasone (Advair 250/50 Diskus) 1 inh BID INH Last administered on 02/14/17 08:42; Admin Dose 1 INH; Start 02/12/17 at 09:00 Miscellaneous Information 1 ea NOTE XX ; Start 02/12/17 at 04:30 Glucose (Glutose) 15 gm Q15M PRN PO DECREASED GLUCOSE; Start 02/12/17 at 04:30 Glucose (Glutose) 22.5 gm Q15M PRN PO DECREASED GLUCOSE; Start 02/12/17 at 04: 30 Dextrose (D50w Syringe) 25 ml Q15M PRN IV DECREASED GLUCOSE Last administered on 02/13/17 08:18; Admin Dose 25 ML; Start 02/12/17 at 04:30 Dextrose (D50w Syringe) 50 ml Q15M PRN IV DECREASED GLUCOSE; Start 02/12/17 at 04:30 Glucagon (Glucagen) 1 mg Q15M PRN IM DECREASED GLUCOSE; Start 02/12/17 at 04:30 Glucose (Glutose) 15 gm Q15M PRN BUCCAL DECREASED GLUCOSE; Start 02/12/17 at 04 :30 Ondansetron HCl (Zofran Inj) 4 mg Q6H PRN IV NAUSEA AND/OR VOMITING; Start 02/12/17 at 04:30 Aspirin (Aspirin) 81 mg DAILY PO Last administered on 02/14/17 08:42; Admin Dose 81 MG; Start 02/12/17 at 09:00 Nitroglycerin (Nitroglycerin (Sl Tab) 0.4 Mg) 1 tab Q5M PRN SL CHEST PAIN; Start 02/12/17 at 04:30 Acetaminophen (Tylenol Tab) 650 mg Q6H PRN PO PAIN LEVEL 1-3 OR FEVER Last administered on 02/13/17 20:00; Admin Dose 650 MG; Start 02/12/17 at 04:30 Morphine Sulfate (morphine) 2 mg Q4H PRN IV PAIN LEVEL 7-10 Last administered on 02/12/17 07:14; Admin Dose 2 MG; Start 02/12/17 at 04:30 Docusate Sodium (Colace) 100 mg Q12H PRN PO CONSTIPATION; Start 02/12/17 at 04: 30 Bisacodyl (Dulcolax) 5 mg DAILY PRN PO CONSTIPATION; Start 02/12/17 at 04:30 Famotidine (Pepcid) 20 mg Q12 PO Last administered on 02/14/17 08:42; Admin Dose 20 MG; Start 02/12/17 at 09:00 Diagnostic Test (Pha) (Accu-Chek) 1 ea 02 XX Last administered on 02/14/17 02: 00; Admin Dose 1 EA; Start 02/13/17 at 02:00 Diagnostic Test (Pha) 1 ea 1 ea 02 XX Last administered on 02/14/17 02:00; Admin Dose 1 EA; Start 02/13/17 at 02:00 Levofloxacin/ Dextrose (Levaquin 500mg/ D5W 100 ml (Pmx)) 100 ml @ 100 mls/hr Q48H IVPB Last administered on 02/14/17 12:05; Admin Dose 100 MLS/HR; Start 02/14/17 at 13:00 Heparin Sodium (Porcine) (Heparin (5000 Units/0.5 ml)) 5,000 unit Q8 SC Last administered on 02/14/17 13:41; Admin Dose 5,000 UNIT; Start 02/13/17 at 14:00 Methylprednisolone Sodium Succinate (Solu-Medrol) 40 mg Q12 IV Last administered on 02/14/17 08:42; Admin Dose 40 MG; Start 02/13/17 at 14:00 RADU LEGGETT M.D. Feb 14, 2017 16:34
[2017-02-14] MEDS: FUROSEMIDE 20 MG TAB PO SCH (17:23)
--- NOTE | 2017-02-14 17:37 | CONS ---
DATE OF ADMISSION: 02/12/2017 DATE OF CONSULTATION: 02/12/2017 REASON FOR CONSULTATION: Congestive heart failure, hypertension. REQUESTING PHYSICIAN: Dr. Gonzalez from the hospitalist service. HISTORY OF PRESENT ILLNESS: Mr. Shukla is a 61-year-old male known to myself from prior hospital admissions with history of diastolic congestive heart failure, last known ejection fraction of 55% to 60% by echo November 2016, hypertension, recurrent pleural effusions, diabetes mellitus, anemia, COPD, renal failure who presented with complaints of shortness of breath. Patient states that is has been ongoing for approximately 2 days and he has been experiencing lower extremity edema. The patient initially went to an outside hospital and was then treated with Lasix and transferred to [facility] due to insurance reasons. Initially, upon arrival at [facility], temperature 97.4, blood pressure of 137/74, pulse 50, respiratory rate 20, saturating 94%. Patient's labs revealed an ABG with a pH of 7.325, PaO2 of 85, a pCO2 of 63 and negative troponin. The patient has no chest x-rays here. Patient's chest x-ray from outside hospital on the revealed findings most likely represent congestive heart failure. Since arrival , the patient has had worsening shortness of breath and decreasing blood pressure. He is currently on Lasix diuresis with Toprol and Procardia for blood pressure management, and receiving bronchodilators. PAST MEDICAL HISTORY: As above in HPI. MEDICATIONS CURRENTLY IN HOSPITAL: 1. Lasix 40 mg IV daily. 2. Lantus 36 units subcutaneously at bedtime. 3. DuoNeb Digoxin 4. Levofloxacin. 5. Ferrous sulfate 325 mg p.o. b.i.d. 6. Gabapentin 300 mg t.i.d. 7. Toprol-XL 25 mg p.o. b.i.d. 8. Procardia 60 mg daily. 9. Advair. 10. Aspirin 81 mg daily. 11. Pepcid 20 mg p.o. q.12h. 12. Lasix 20 p.o. b.i.d. 13. Tylenol. 14. Morphine. ALLERGIES: NO KNOWN DRUG ALLERGIES. SOCIAL HISTORY: Positive tobacco, social ETOH, no illicit drug use. FAMILY HISTORY: No history of sudden cardiac or early CAD. REVIEW OF SYSTEMS: As above in HPI. CONSTITUTIONAL: No fevers, chills. PULMONARY: Shortness of breath, COPD. CARDIOVASCULAR: Congestive heart failure. GASTROINTESTINAL: No vomiting. GENITOURINARY: No hematuria. MUSCULOSKELETAL: Degenerative joint disease. PSYCHIATRIC: The patient denies depression. NEUROLOGIC: No documented history of CVA. PHYSICAL EXAMINATION VITAL SIGNS: Temperature of 98.1, blood pressure most recently 75/51, pulse 64 , respiratory rate 23, saturating 95% on 10 liters. GENERAL: The patient is sleepy, but arousable. NECK: JVP approximately 9 cm of water. CHEST: Upper airway sounds are rhonchorous sounds. Decreased air movement. X- ray wheezing. ABDOMEN: Positive bowel sounds, soft. HEART: Regular rate and rhythm. Normal S1, increased S2, I/ systolic murmur , nondisplaced PMI. EXTREMITIES: No pitting edema, 1+ pulses bilaterally, posterior tibial. LABORATORIES: As above in HPI since admit, patient had a troponin negative x2. IMAGING STUDIES: No imaging studies for my review at this time. ECG: No electrocardiograms for my review at this time. IMPRESSION 1. Hypotension 2. Congestive heart failure, diastolic, acute on chronic. 3. Shortness of breath, likely combination of congestive heart failure and chronic obstructive pulmonary disease. 4. Diabetes mellitus. 5. History of renal failure. 6. Ongoing tobacco usage. 7. Dyslipidemia. RECOMMENDATIONS: 1. At this time, would transfer patient to ICU due to hypotension and respiratory distress, pending respiratory failure. 2. Would check a repeat chest x-ray and obtain a baseline electrolytes including creatinine and a BNP to further assess patient's current volume status. 3. Continue the patient's bronchodilators and would give consideration to steroid therapy for treatment of chronic obstructive pulmonary disease exacerbation. 4. Given the patient's hypotension at this time, would hold further Lasix diuresis and give a fluid bolus to improve blood pressure. 5. Complete the patient's rule out for myocardial infarction to ensure the patient's constellation of symptoms are not due to or have not resulted in acute myocardial infarction. 6. Would check a baseline EKG now and a repeat EKG in the morning to assess for any significant abnormalities or new changes. 7. Continue the patient's antibiotics and bronchodilators and follow respiratory status closely Thank you for allowing me to take part in the care of this patient. I will continue to follow along very closely with you. Further recommendations will be made as the patient progresses through his inpatient hospital clinical course. Dictated By: JOSÉ REED/DANIAL Conf#: [id number] DID#: [id number] CC: NILES AYALA [employer] OPERATOR;*EndCC* MTDD
[2017-02-14] MEDS ORDERED: hydrALAzine 20 MG INJ IV ONE (18:00)
[2017-02-14] MEDS: INSULIN GLARGINE [LANtus] 3 ML PEN SC SCH (21:39)
[2017-02-15] VITALS (13 sets, daily range): BP systolic 116–156; BP diastolic 73–82; PULSE 87–95; RESP 18–23
[2017-02-15] MEDS: ACCU-CHEK XX SCH ×2 (02:00→02:24)
[2017-02-15] MEDS: FUROSEMIDE 20 MG TAB PO SCH (05:41)
[2017-02-15] MEDS: HEPARIN 5,000 UNIT/0.5 ML VIAL SC SCH ×3 (05:50→22:04)
[2017-02-15 06:40] LABS: BASOPHILS % 0.1 % (0.0-2.0); HEMATOCRIT 38.3 % (42.0-52.0); HEMOGLOBIN 11.7 g/dl (14.0-18.0); LYMPHOCYTES # 1.2 10^3/ul (0.8-2.9); LYMPHOCYTES % 8.7 % (15.0-51.0); MAGNESIUM 2.1 mg/dl (1.7-2.5); MEAN CORPUSCULAR HEMOGLOBIN 26.7 pg (29.0-33.0); MEAN CORPUSCULAR HGB CONC 30.5 g/dl (32.0-37.0); MEAN CORPUSCULAR VOLUME 87.4 fl (82.0-101.0); MONOCYTE # 0.4 10^3/ul (0.3-0.9); MONOCYTES % 2.9 % (0.0-11.0); NEUTROPHIL # 11.6 10^3/ul (1.6-7.5); NEUTROPHILS % 87.8 % (39.0-77.0); PHOSPHORUS 3.5 mg/dl (2.5-4.9); PLATELET COUNT 335 10^3/UL (140-415); RED BLOOD COUNT 4.38 10^6/ul (4.70-6.10); RED CELL DISTRIBUTION WIDTH 13.3 % (11.5-14.5); WHITE BLOOD COUNT 13.2 10^3/ul (4.8-10.8)
[2017-02-15 07:12] LABS: CALCIUM 9.3 mg/dl (8.4-10.2); CREATININE 1.14 mg/dl (0.61-1.24); POTASSIUM 5.2 mmol/L (3.5-5.1)
[2017-02-15] MEDS: ALBUTEROL/IPRATROPIUM (NEB) 3 ML AMP HHN SCH ×3 (07:57→20:29)
[2017-02-15] MEDS: INSULIN ASPART [NOVOLOG] 3 ML PEN SC SCH ×7 (09:04→20:52)
[2017-02-15] MEDS: GABAPENTIN 300 MG CAP PO SCH ×3 (09:05→21:56)
[2017-02-15] MEDS: METHYLPREDNISOLONE 40 MG INJ IV SCH ×2 (09:05→21:57)
[2017-02-15] MEDS: FERROUS SULFATE (EC) 325 MG TAB PO SCH ×2 (09:06→21:56)
[2017-02-15] MEDS: FAMOTIDINE 20 MG TAB PO SCH ×2 (09:06→21:56)
[2017-02-15] MEDS: ASPIRIN 81 MG TAB PO SCH (09:06)
[2017-02-15] MEDS: NIFEdipine (XL) 60 MG TAB PO SCH (09:07)
[2017-02-15] MEDS: SALMETEROL/FLUTICASONE 250/50 INHA INH SCH ×2 (09:08→21:56)
--- NOTE | 2017-02-15 11:26 | RADRPT ---
PROCEDURE: XR Chest. CLINICAL INDICATION: Shortness of breath. TECHNIQUE: Single frontal view. COMPARISON: 02/14/2017. FINDINGS: There is pulmonary vascular congestion. There is mild bibasilar consolidation, unchanged from previous exam.. Small to moderate right pleural effusion, is unchanged. The heart size is large. There is atherosclerotic calcification of the aorta. The cardiomediastinal contour is otherwise unremarkable. The soft tissues and bony structures are unremarkable. IMPRESSION: 1. No change from 02/14/2017 RPTAT: QQ .Kayden Cervantes MD, MD Date Time Electronically viewed and signed by .Kayden Cervantes MD, MD on 02/15/2017 11:26 .R/
[2017-02-15] MEDS: BISACODYL (EC) 5 MG TAB PO PRN (13:56)
--- NOTE | 2017-02-15 14:23 | CONS ---
Date/Time of Note Date/Time of Note DATE: 02/15/17 TIME: 14:16 Assessment/Plan Assessment/Plan Chief Complaint/Hosp Course IMPRESSION 1. Hypotension-Now improved/NL EF by echo this admit 2. Congestive heart failure, diastolic, acute on chronic. 3. Shortness of breath, likely combination of congestive heart failure and chronic obstructive pulmonary disease. 4. Diabetes mellitus. 5. History of renal failure. 6. Ongoing tobacco usage. 7. Dyslipidemia. REcc: -Tele -serial ecg's -Contineu procardia -Conntinue lasix diuresis -Consider thoracentesis -Continue asa -Contineu steroids/bronchodilators Problems: Consultation Date/Type/Reason Admit Date/Time Feb 12, 2017 at 02:12 Initial Consult Date 02/13/17 Type of Consultation: cardiology Reason for Consultation CHF Referring Provider: BRENDA CHAVEZ Exam/Review of Systems Vital Signs Vitals Vital Signs Date Time Temp Pulse Resp B/P Pulse Ox O2 Delivery O2 Flow Rate FiO2 02/15/17 12:04 90 02/15/17 11:18 98.3 18 156/78 91 02/15/17 08:05 Nasal Cannula 2.0 02/15/17 00:56 28 Intake and Output 02/14/17 02/14/17 02/15/17 15:00 23:00 07:00 Intake Total 500 ml 400 ml 800 ml Output Total 300 ml 200 ml 700 ml Balance 200 ml 200 ml 100 ml Exam Review of Systems: CONSTITUTIONAL: No fevers, chills. PULMONARY: No sob CARDIOVASCULAR: No chest pain/palpitations GASTROINTESTINAL: No nausea/vomiting. GENITOURINARY: No hematuria/dysuria. MUSCULOSKELETAL: No myagias/arthalgias. PSYCHIATRIC: The patient denies depression. NEUROLOGIC: No weakness Constitutional: alert, oriented Psych: no complaints Head: normocephalic ENMT: mucosa pink and moist Neck: jvd (9 cm water), supple Respiratory: diminished breath sounds (at nases/B), other (Mild exp wheezing) Cardiovascular: regular rate and rhythm Gastrointestinal: non-tender, soft Musculoskeletal: muscle tone (normal) Extremities: edema (None) Results Result Diagram: 02/15/17 0524 02/15/17 0524 Results 24 hrs Laboratory Tests Test 02/14/17 17:07 02/14/17 21:33 02/15/17 02:22 02/15/17 05:24 Bedside Glucose 232 H 204 222 H White Blood Count 13.2 #H Red Blood Count 4.38 L Hemoglobin 11.7 L Hematocrit 38.3 L Mean Corpuscular Volume 87.4 Mean Corpuscular Hemoglobin 26.7 L Mean Corpuscular Hemoglobin Concent 30.5 L Red Cell Distribution Width 13.3 Platelet Count 335 Mean Platelet Volume 10.0 Neutrophils % 87.8 H Lymphocytes % 8.7 L Monocytes % 2.9 Eosinophils % 0.0 Basophils % 0.1 Nucleated Red Blood Cells % 0.0 Neutrophils # 11.6 H Lymphocytes # 1.2 Monocytes # 0.4 Eosinophils # 0.0 Basophils # 0.0 Nucleated Red Blood Cells # 0.0 Sodium Level 141 Potassium Level 5.2 H Chloride Level 100 Carbon Dioxide Level 34 H Anion Gap 12 Blood Urea Nitrogen 42 #H Creatinine 1.14 Glucose Level 321 H Calcium Level 9.3 Phosphorus Level 3.5 Magnesium Level 2.1 Test 02/15/17 09:00 02/15/17 12:57 Bedside Glucose 371 H 274 H Medications Medications Current Medications Ferrous Sulfate (Ferrous Sulfate (Ec)) 325 mg BID PO Last administered on 09:06; Admin Dose 325 MG; Start 02/12/17 at 09:00 Gabapentin (Neurontin) 300 mg TID PO Last administered on 02/15/17 12:58; Admin Dose 300 MG; Start 02/12/17 at 09:00 Metoprolol Succinate (Toprol Xl) 25 mg BID PO Last administered on 02/12/17 08 :59; Admin Dose 25 MG; Start 02/12/17 at 09:00; Status Future Hold Nifedipine (Procardia Xl) 60 mg DAILY PO Last administered on 02/15/17 09:07; Admin Dose 60 MG; Start 02/12/17 at 09:00; Status Future hold Salmeterol Xinafoate/ Fluticasone (Advair 250/50 Diskus) 1 inh BID INH Last administered on 02/15/17 09:08; Admin Dose 1 INH; Start 02/12/17 at 09:00 Miscellaneous Information 1 ea NOTE XX ; Start 02/12/17 at 04:30 Glucose (Glutose) 15 gm Q15M PRN PO DECREASED GLUCOSE; Start 02/12/17 at 04:30 Glucose (Glutose) 22.5 gm Q15M PRN PO DECREASED GLUCOSE; Start 02/12/17 at 04: 30 Dextrose (D50w Syringe) 25 ml Q15M PRN IV DECREASED GLUCOSE Last administered on 02/13/17 08:18; Admin Dose 25 ML; Start 02/12/17 at 04:30 Dextrose (D50w Syringe) 50 ml Q15M PRN IV DECREASED GLUCOSE; Start 02/12/17 at 04:30 Glucagon (Glucagen) 1 mg Q15M PRN IM DECREASED GLUCOSE; Start 02/12/17 at 04:30 Glucose (Glutose) 15 gm Q15M PRN BUCCAL DECREASED GLUCOSE; Start 02/12/17 at 04 :30 Ondansetron HCl (Zofran Inj) 4 mg Q6H PRN IV NAUSEA AND/OR VOMITING; Start 02/12/17 at 04:30 Aspirin (Aspirin) 81 mg DAILY PO Last administered on 02/15/17 09:06; Admin Dose 81 MG; Start 02/12/17 at 09:00 Nitroglycerin (Nitroglycerin (Sl Tab) 0.4 Mg) 1 tab Q5M PRN SL CHEST PAIN; Start 02/12/17 at 04:30 Acetaminophen (Tylenol Tab) 650 mg Q6H PRN PO PAIN LEVEL 1-3 OR FEVER Last administered on 02/13/17 20:00; Admin Dose 650 MG; Start 02/12/17 at 04:30 Morphine Sulfate (morphine) 2 mg Q4H PRN IV PAIN LEVEL 7-10 Last administered on 02/12/17 07:14; Admin Dose 2 MG; Start 02/12/17 at 04:30 Docusate Sodium (Colace) 100 mg Q12H PRN PO CONSTIPATION; Start 02/12/17 at 04: 30 Bisacodyl (Dulcolax) 5 mg DAILY PRN PO CONSTIPATION Last administered on 13:56; Admin Dose 5 MG; Start 02/12/17 at 04:30 Famotidine (Pepcid) 20 mg Q12 PO Last administered on 02/15/17 09:06; Admin Dose 20 MG; Start 02/12/17 at 09:00 Diagnostic Test (Pha) 1 ea 1 ea 02 XX Last administered on 02/15/17 02:24; Admin Dose 1 EA; Start 02/13/17 at 02:00 Levofloxacin/ Dextrose (Levaquin 500mg/ D5W 100 ml (Pmx)) 100 ml @ 100 mls/hr Q48H IVPB Last administered on 02/14/17 12:05; Admin Dose 100 MLS/HR; Start 02/14/17 at 13:00 Heparin Sodium (Porcine) (Heparin (5000 Units/0.5 ml)) 5,000 unit Q8 SC Last administered on 02/15/17 14:00; Admin Dose 5,000 UNIT; Start 02/13/17 at 14:00 Methylprednisolone Sodium Succinate (Solu-Medrol) 40 mg Q12 IV Last administered on 02/15/17 09:05; Admin Dose 40 MG; Start 02/13/17 at 14:00 Insulin Glargine (Lantus) 40 unit QHS SC ; Start 02/15/17 at 21:00 JOSÉ GARCIA Feb 15, 2017 14:23
--- NOTE | 2017-02-15 14:43 | CONS ---
Date/Time of Note Date/Time of Note DATE: 02/15/17 TIME: 14:41 Assessment/Plan Assessment/Plan Additional Assessment/Plan Assessment and recommendations; 1. Patient admitted with COPD and CHF exacerbation status post right thoracentesis with significant clinical improvement. 2. Neuropathy. 3. Anemia. Continue current supportive care. Consultation Date/Type/Reason Admit Date/Time Feb 12, 2017 at 02:12 Initial Consult Date 02/13/17 Type of Consultation: Pulmonary Referring Provider: BRENDA CHAVEZ 24 HR Interval Summary Free Text/Dictation Patient's condition is stable. Resting comfortably. Denies any chest pain. General exam; elderly male, awake, currently in no distress. Exam/Review of Systems Vital Signs Vitals Vital Signs Date Time Temp Pulse Resp B/P Pulse Ox O2 Delivery O2 Flow Rate FiO2 02/15/17 14:16 91 20 96 Nasal Cannula 2.0 02/15/17 11:18 98.3 156/78 02/15/17 00:56 28 Intake and Output 02/14/17 02/14/17 02/15/17 15:00 23:00 07:00 Intake Total 500 ml 400 ml 800 ml Output Total 300 ml 200 ml 700 ml Balance 200 ml 200 ml 100 ml Exam HEENT exam; supple neck, positive JVD. No lymphadenopathy. Midline trachea. No thyromegaly. No neck masses. Pupils are small bilaterally. Chest exam; diminished but clear breath sounds. S1-S2 audible, no murmurs. Regular rhythm. Abdomen exam; soft, nontender. No organomegaly. Bowel sounds audible. Extremity exam; no peripheral edema. PHOTOGRAPH RETOUCHER exam; no focal deficit. Results Result Diagram: 02/15/17 0524 02/15/17 0524 Results 24 hrs Laboratory Tests Test 02/14/17 17:07 02/14/17 21:33 02/15/17 02:22 02/15/17 05:24 Bedside Glucose 232 H 204 222 H White Blood Count 13.2 #H Red Blood Count 4.38 L Hemoglobin 11.7 L Hematocrit 38.3 L Mean Corpuscular Volume 87.4 Mean Corpuscular Hemoglobin 26.7 L Mean Corpuscular Hemoglobin Concent 30.5 L Red Cell Distribution Width 13.3 Platelet Count 335 Mean Platelet Volume 10.0 Neutrophils % 87.8 H Lymphocytes % 8.7 L Monocytes % 2.9 Eosinophils % 0.0 Basophils % 0.1 Nucleated Red Blood Cells % 0.0 Neutrophils # 11.6 H Lymphocytes # 1.2 Monocytes # 0.4 Eosinophils # 0.0 Basophils # 0.0 Nucleated Red Blood Cells # 0.0 Sodium Level 141 Potassium Level 5.2 H Chloride Level 100 Carbon Dioxide Level 34 H Anion Gap 12 Blood Urea Nitrogen 42 #H Creatinine 1.14 Glucose Level 321 H Calcium Level 9.3 Phosphorus Level 3.5 Magnesium Level 2.1 Test 02/15/17 09:00 02/15/17 12:57 Bedside Glucose 371 H 274 H Medications Medications Current Medications Ferrous Sulfate (Ferrous Sulfate (Ec)) 325 mg BID PO Last administered on 09:06; Admin Dose 325 MG; Start 02/12/17 at 09:00 Gabapentin (Neurontin) 300 mg TID PO Last administered on 02/15/17 12:58; Admin Dose 300 MG; Start 02/12/17 at 09:00 Metoprolol Succinate (Toprol Xl) 25 mg BID PO Last administered on 02/12/17 08 :59; Admin Dose 25 MG; Start 02/12/17 at 09:00; Status Future Hold Nifedipine (Procardia Xl) 60 mg DAILY PO Last administered on 02/15/17 09:07; Admin Dose 60 MG; Start 02/12/17 at 09:00; Status Future hold Salmeterol Xinafoate/ Fluticasone (Advair 250/50 Diskus) 1 inh BID INH Last administered on 02/15/17 09:08; Admin Dose 1 INH; Start 02/12/17 at 09:00 Miscellaneous Information 1 ea NOTE XX ; Start 02/12/17 at 04:30 Glucose (Glutose) 15 gm Q15M PRN PO DECREASED GLUCOSE; Start 02/12/17 at 04:30 Glucose (Glutose) 22.5 gm Q15M PRN PO DECREASED GLUCOSE; Start 02/12/17 at 04: 30 Dextrose (D50w Syringe) 25 ml Q15M PRN IV DECREASED GLUCOSE Last administered on 02/13/17 08:18; Admin Dose 25 ML; Start 02/12/17 at 04:30 Dextrose (D50w Syringe) 50 ml Q15M PRN IV DECREASED GLUCOSE; Start 02/12/17 at 04:30 Glucagon (Glucagen) 1 mg Q15M PRN IM DECREASED GLUCOSE; Start 02/12/17 at 04:30 Glucose (Glutose) 15 gm Q15M PRN BUCCAL DECREASED GLUCOSE; Start 02/12/17 at 04 :30 Ondansetron HCl (Zofran Inj) 4 mg Q6H PRN IV NAUSEA AND/OR VOMITING; Start 02/12/17 at 04:30 Aspirin (Aspirin) 81 mg DAILY PO Last administered on 02/15/17 09:06; Admin Dose 81 MG; Start 02/12/17 at 09:00 Nitroglycerin (Nitroglycerin (Sl Tab) 0.4 Mg) 1 tab Q5M PRN SL CHEST PAIN; Start 02/12/17 at 04:30 Acetaminophen (Tylenol Tab) 650 mg Q6H PRN PO PAIN LEVEL 1-3 OR FEVER Last administered on 02/13/17 20:00; Admin Dose 650 MG; Start 02/12/17 at 04:30 Morphine Sulfate (morphine) 2 mg Q4H PRN IV PAIN LEVEL 7-10 Last administered on 02/12/17 07:14; Admin Dose 2 MG; Start 02/12/17 at 04:30 Docusate Sodium (Colace) 100 mg Q12H PRN PO CONSTIPATION; Start 02/12/17 at 04: 30 Bisacodyl (Dulcolax) 5 mg DAILY PRN PO CONSTIPATION Last administered on 13:56; Admin Dose 5 MG; Start 02/12/17 at 04:30 Famotidine (Pepcid) 20 mg Q12 PO Last administered on 02/15/17 09:06; Admin Dose 20 MG; Start 02/12/17 at 09:00 Diagnostic Test (Pha) 1 ea 1 ea 02 XX Last administered on 02/15/17 02:24; Admin Dose 1 EA; Start 02/13/17 at 02:00 Levofloxacin/ Dextrose (Levaquin 500mg/ D5W 100 ml (Pmx)) 100 ml @ 100 mls/hr Q48H IVPB Last administered on 02/14/17 12:05; Admin Dose 100 MLS/HR; Start 02/14/17 at 13:00 Heparin Sodium (Porcine) (Heparin (5000 Units/0.5 ml)) 5,000 unit Q8 SC Last administered on 02/15/17 14:00; Admin Dose 5,000 UNIT; Start 02/13/17 at 14:00 Methylprednisolone Sodium Succinate (Solu-Medrol) 40 mg Q12 IV Last administered on 02/15/17 09:05; Admin Dose 40 MG; Start 02/13/17 at 14:00 Insulin Glargine (Lantus) 40 unit QHS SC ; Start 02/15/17 at 21:00 DAILY LARIOS Feb 15, 2017 14:43
--- NOTE | 2017-02-15 15:49 | PN ---
Date/Time of Note Date/Time of Note DATE: 02/15/17 TIME: 15:47 Assessment/Plan VTE Prophylaxis VTE Prophylaxis Intervention: SCD's Lines/Catheters IV Catheter Type (from [facility]): [place] Assessment/Plan Chief Complaint/Hosp Course Assessment and plan 1. Acute respiratory failure. Hypoxic and hypercapnic secondary to COPD and diastolic heart failure. Continue bronchodilators. Noted with pleural effusion. Follow-up with legal archivist if need for possible thoracentesis 2. Episodic hypotension requiring IV pressors. Resolved at present. Etiology unclear. Monitor for now. 3. Recurrent right-sided pleural effusion. Patient does have history of multiple thoracentesis. Noted status post ultrasound-guided thoracentesis on February 13, 2017 with 1.2 L of fluid removed. Follow-up with legal archivist or conditions. 4. Anemia of chronic disease. Continue iron supplement. 5. Essential hypertension. Continue antihypertensives. Monitor for hypotension. 6. Acute on chronic kidney disease. De Alcoholizer following. Renally dose medications. Monitor renal panel. 7. CHF exacerbation. Acute on chronic. Patient with ejection fraction 60-65% . Continue optimal medical management per fabric awning repairer recommendation. 8. Nicotine abuse. Cessation advised. Disposition and plan: Monitor for clinical improvement of respiratory status. DC when medically stable for by consultants Discussed plan of care with Dr. Barlow Problems: Subjective 24 Hr Interval Summary Free Text/Dictation Reports that her breathing is time. No reports of chest pain. No reports of cough either. Exam/Review of Systems Vital Signs Vitals Vital Signs Date Time Temp Pulse Resp B/P Pulse Ox O2 Delivery O2 Flow Rate FiO2 02/15/17 15:02 98.4 96 18 154/82 98 02/15/17 14:16 Nasal Cannula 2.0 02/15/17 00:56 28 Intake and Output 02/14/17 02/14/17 02/15/17 15:00 23:00 07:00 Intake Total 500 ml 400 ml 800 ml Output Total 300 ml 200 ml 700 ml Balance 200 ml 200 ml 100 ml Exam Constitutional: alert, oriented Psych: nl mood/affect Head: normocephalic Neck: supple Respiratory: diminished breath sounds (At lung bases) Cardiovascular: other (Regular rate) Musculoskeletal: No swelling Neurological: CHILD NEUROLOGIST II-XII intact, nl mental status, nl speech Skin: nl turgor Results Result Diagram: 02/15/17 0524 02/15/17 0524 Results 24 hrs Laboratory Tests Test 02/14/17 17:07 02/14/17 21:33 02/15/17 02:22 02/15/17 05:24 Bedside Glucose 232 H 204 222 H White Blood Count 13.2 #H Red Blood Count 4.38 L Hemoglobin 11.7 L Hematocrit 38.3 L Mean Corpuscular Volume 87.4 Mean Corpuscular Hemoglobin 26.7 L Mean Corpuscular Hemoglobin Concent 30.5 L Red Cell Distribution Width 13.3 Platelet Count 335 Mean Platelet Volume 10.0 Neutrophils % 87.8 H Lymphocytes % 8.7 L Monocytes % 2.9 Eosinophils % 0.0 Basophils % 0.1 Nucleated Red Blood Cells % 0.0 Neutrophils # 11.6 H Lymphocytes # 1.2 Monocytes # 0.4 Eosinophils # 0.0 Basophils # 0.0 Nucleated Red Blood Cells # 0.0 Sodium Level 141 Potassium Level 5.2 H Chloride Level 100 Carbon Dioxide Level 34 H Anion Gap 12 Blood Urea Nitrogen 42 #H Creatinine 1.14 Glucose Level 321 H Calcium Level 9.3 Phosphorus Level 3.5 Magnesium Level 2.1 Test 02/15/17 09:00 02/15/17 12:57 Bedside Glucose 371 H 274 H Medications Medications Current Medications Ferrous Sulfate (Ferrous Sulfate (Ec)) 325 mg BID PO Last administered on 09:06; Admin Dose 325 MG; Start 02/12/17 at 09:00 Gabapentin (Neurontin) 300 mg TID PO Last administered on 02/15/17 12:58; Admin Dose 300 MG; Start 02/12/17 at 09:00 Metoprolol Succinate (Toprol Xl) 25 mg BID PO Last administered on 02/12/17 08 :59; Admin Dose 25 MG; Start 02/12/17 at 09:00; Status Future Hold Nifedipine (Procardia Xl) 60 mg DAILY PO Last administered on 02/15/17 09:07; Admin Dose 60 MG; Start 02/12/17 at 09:00; Status Future hold Salmeterol Xinafoate/ Fluticasone (Advair 250/50 Diskus) 1 inh BID INH Last administered on 02/15/17 09:08; Admin Dose 1 INH; Start 02/12/17 at 09:00 Miscellaneous Information 1 ea NOTE XX ; Start 02/12/17 at 04:30 Glucose (Glutose) 15 gm Q15M PRN PO DECREASED GLUCOSE; Start 02/12/17 at 04:30 Glucose (Glutose) 22.5 gm Q15M PRN PO DECREASED GLUCOSE; Start 02/12/17 at 04: 30 Dextrose (D50w Syringe) 25 ml Q15M PRN IV DECREASED GLUCOSE Last administered on 02/13/17 08:18; Admin Dose 25 ML; Start 02/12/17 at 04:30 Dextrose (D50w Syringe) 50 ml Q15M PRN IV DECREASED GLUCOSE; Start 02/12/17 at 04:30 Glucagon (Glucagen) 1 mg Q15M PRN IM DECREASED GLUCOSE; Start 02/12/17 at 04:30 Glucose (Glutose) 15 gm Q15M PRN BUCCAL DECREASED GLUCOSE; Start 02/12/17 at 04 :30 Ondansetron HCl (Zofran Inj) 4 mg Q6H PRN IV NAUSEA AND/OR VOMITING; Start 02/12/17 at 04:30 Aspirin (Aspirin) 81 mg DAILY PO Last administered on 02/15/17 09:06; Admin Dose 81 MG; Start 02/12/17 at 09:00 Nitroglycerin (Nitroglycerin (Sl Tab) 0.4 Mg) 1 tab Q5M PRN SL CHEST PAIN; Start 02/12/17 at 04:30 Acetaminophen (Tylenol Tab) 650 mg Q6H PRN PO PAIN LEVEL 1-3 OR FEVER Last administered on 02/13/17 20:00; Admin Dose 650 MG; Start 02/12/17 at 04:30 Morphine Sulfate (morphine) 2 mg Q4H PRN IV PAIN LEVEL 7-10 Last administered on 02/12/17 07:14; Admin Dose 2 MG; Start 02/12/17 at 04:30 Docusate Sodium (Colace) 100 mg Q12H PRN PO CONSTIPATION; Start 02/12/17 at 04: 30 Bisacodyl (Dulcolax) 5 mg DAILY PRN PO CONSTIPATION Last administered on 13:56; Admin Dose 5 MG; Start 02/12/17 at 04:30 Famotidine (Pepcid) 20 mg Q12 PO Last administered on 02/15/17 09:06; Admin Dose 20 MG; Start 02/12/17 at 09:00 Diagnostic Test (Pha) 1 ea 1 ea 02 XX Last administered on 02/15/17 02:24; Admin Dose 1 EA; Start 02/13/17 at 02:00 Levofloxacin/ Dextrose (Levaquin 500mg/ D5W 100 ml (Pmx)) 100 ml @ 100 mls/hr Q48H IVPB Last administered on 02/14/17 12:05; Admin Dose 100 MLS/HR; Start 02/14/17 at 13:00 Heparin Sodium (Porcine) (Heparin (5000 Units/0.5 ml)) 5,000 unit Q8 SC Last administered on 02/15/17 14:00; Admin Dose 5,000 UNIT; Start 02/13/17 at 14:00 Methylprednisolone Sodium Succinate (Solu-Medrol) 40 mg Q12 IV Last administered on 02/15/17 09:05; Admin Dose 40 MG; Start 02/13/17 at 14:00 Insulin Glargine (Lantus) 40 unit QHS SC ; Start 02/15/17 at 21:00 BRIANDA TYLER Feb 15, 2017 15:49
[2017-02-15] MEDS ORDERED: NA POLYST SULFON 15 GM/60 ML BTL PO ONE (17:00)
--- NOTE | 2017-02-15 17:02 | CONS ---
Date/Time of Note Date/Time of Note DATE: 02/15/17 TIME: 17:00 Assessment/Plan Assessment/Plan Additional Assessment/Plan 1. Non oliguric acute kidney injury on chronic kidney disease 2/2 hemodynamics from pulmonary edema and CHF, pt ran out of lasix 2. Chronic kidney disease III secondary to a diabetic Nephropathy 3. Acute Resp failure hypoxic due to pulmoanry edema and CHF due to ran out of lasix 4. acute COPD Exacerbation 5. acute CHF exacerbaton , acute on chronic, diastoilc, ECHO showed ejection fraction, 62 to 65 with stage I diastolic dysfunction. 6. History of hyperlipidemia. 7. History of diabetes mellitus 8. Moderate right pleural effusion s/p throacentesis US guided 02/13/2017- 1.2 L removed Plan : US guided Thoracentesis done-1.2 L removed, Bp stable, in systolic 140s, lasix PO 20mg PO BID pulmonary has been following pt , on IV solu-medrol for acute COPD exacerbation. K 5.2- kayexalate 15 gram PO x 1 dose now pt had a full CKD work up done on last admission no need to repeat it will continue to follow up Consultation Date/Type/Reason Admit Date/Time Feb 12, 2017 at 02:12 Initial Consult Date 02/13/17 Type of Consultation: NEPHROLOGY Referring Provider: BRENDA CHAVEZ Exam/Review of Systems Vital Signs Vitals Vital Signs Date Time Temp Pulse Resp B/P Pulse Ox O2 Delivery O2 Flow Rate FiO2 02/15/17 16:13 89 02/15/17 15:02 98.4 18 154/82 98 02/15/17 14:16 Nasal Cannula 2.0 02/15/17 00:56 28 Intake and Output 02/14/17 02/14/17 02/15/17 15:00 23:00 07:00 Intake Total 500 ml 400 ml 800 ml Output Total 300 ml 200 ml 700 ml Balance 200 ml 200 ml 100 ml Exam Constitutional: alert, oriented, well developed Respiratory: crackles/rales RML and RLL, no wheezing Cardiovascular: nl pulses, regular rate and rhythm Gastrointestinal: nl liver, spleen, soft Extremities: normal pulses Results Result Diagram: 02/15/17 0524 02/15/17 0524 Results 24 hrs Laboratory Tests Test 02/14/17 17:07 02/14/17 21:33 02/15/17 02:22 02/15/17 05:24 Bedside Glucose 232 H 204 222 H White Blood Count 13.2 #H Red Blood Count 4.38 L Hemoglobin 11.7 L Hematocrit 38.3 L Mean Corpuscular Volume 87.4 Mean Corpuscular Hemoglobin 26.7 L Mean Corpuscular Hemoglobin Concent 30.5 L Red Cell Distribution Width 13.3 Platelet Count 335 Mean Platelet Volume 10.0 Neutrophils % 87.8 H Lymphocytes % 8.7 L Monocytes % 2.9 Eosinophils % 0.0 Basophils % 0.1 Nucleated Red Blood Cells % 0.0 Neutrophils # 11.6 H Lymphocytes # 1.2 Monocytes # 0.4 Eosinophils # 0.0 Basophils # 0.0 Nucleated Red Blood Cells # 0.0 Sodium Level 141 Potassium Level 5.2 H Chloride Level 100 Carbon Dioxide Level 34 H Anion Gap 12 Blood Urea Nitrogen 42 #H Creatinine 1.14 Glucose Level 321 H Calcium Level 9.3 Phosphorus Level 3.5 Magnesium Level 2.1 Test 02/15/17 09:00 02/15/17 12:57 Bedside Glucose 371 H 274 H Medications Medications Current Medications Ferrous Sulfate (Ferrous Sulfate (Ec)) 325 mg BID PO Last administered on 09:06; Admin Dose 325 MG; Start 02/12/17 at 09:00 Gabapentin (Neurontin) 300 mg TID PO Last administered on 02/15/17 12:58; Admin Dose 300 MG; Start 02/12/17 at 09:00 Metoprolol Succinate (Toprol Xl) 25 mg BID PO Last administered on 02/12/17 08 :59; Admin Dose 25 MG; Start 02/12/17 at 09:00; Status Future Hold Nifedipine (Procardia Xl) 60 mg DAILY PO Last administered on 02/15/17 09:07; Admin Dose 60 MG; Start 02/12/17 at 09:00; Status Future hold Salmeterol Xinafoate/ Fluticasone (Advair 250/50 Diskus) 1 inh BID INH Last administered on 02/15/17 09:08; Admin Dose 1 INH; Start 02/12/17 at 09:00 Miscellaneous Information 1 ea NOTE XX ; Start 02/12/17 at 04:30 Glucose (Glutose) 15 gm Q15M PRN PO DECREASED GLUCOSE; Start 02/12/17 at 04:30 Glucose (Glutose) 22.5 gm Q15M PRN PO DECREASED GLUCOSE; Start 02/12/17 at 04: 30 Dextrose (D50w Syringe) 25 ml Q15M PRN IV DECREASED GLUCOSE Last administered on 02/13/17 08:18; Admin Dose 25 ML; Start 02/12/17 at 04:30 Dextrose (D50w Syringe) 50 ml Q15M PRN IV DECREASED GLUCOSE; Start 02/12/17 at 04:30 Glucagon (Glucagen) 1 mg Q15M PRN IM DECREASED GLUCOSE; Start 02/12/17 at 04:30 Glucose (Glutose) 15 gm Q15M PRN BUCCAL DECREASED GLUCOSE; Start 02/12/17 at 04 :30 Ondansetron HCl (Zofran Inj) 4 mg Q6H PRN IV NAUSEA AND/OR VOMITING; Start 02/12/17 at 04:30 Aspirin (Aspirin) 81 mg DAILY PO Last administered on 02/15/17 09:06; Admin Dose 81 MG; Start 02/12/17 at 09:00 Nitroglycerin (Nitroglycerin (Sl Tab) 0.4 Mg) 1 tab Q5M PRN SL CHEST PAIN; Start 02/12/17 at 04:30 Acetaminophen (Tylenol Tab) 650 mg Q6H PRN PO PAIN LEVEL 1-3 OR FEVER Last administered on 02/13/17 20:00; Admin Dose 650 MG; Start 02/12/17 at 04:30 Morphine Sulfate (morphine) 2 mg Q4H PRN IV PAIN LEVEL 7-10 Last administered on 02/12/17 07:14; Admin Dose 2 MG; Start 02/12/17 at 04:30 Docusate Sodium (Colace) 100 mg Q12H PRN PO CONSTIPATION; Start 02/12/17 at 04: 30 Bisacodyl (Dulcolax) 5 mg DAILY PRN PO CONSTIPATION Last administered on 13:56; Admin Dose 5 MG; Start 02/12/17 at 04:30 Famotidine (Pepcid) 20 mg Q12 PO Last administered on 02/15/17 09:06; Admin Dose 20 MG; Start 02/12/17 at 09:00 Diagnostic Test (Pha) 1 ea 1 ea 02 XX Last administered on 02/15/17 02:24; Admin Dose 1 EA; Start 02/13/17 at 02:00 Levofloxacin/ Dextrose (Levaquin 500mg/ D5W 100 ml (Pmx)) 100 ml @ 100 mls/hr Q48H IVPB Last administered on 02/14/17 12:05; Admin Dose 100 MLS/HR; Start 02/14/17 at 13:00 Heparin Sodium (Porcine) (Heparin (5000 Units/0.5 ml)) 5,000 unit Q8 SC Last administered on 02/15/17 14:00; Admin Dose 5,000 UNIT; Start 02/13/17 at 14:00 Methylprednisolone Sodium Succinate (Solu-Medrol) 40 mg Q12 IV Last administered on 02/15/17 09:05; Admin Dose 40 MG; Start 02/13/17 at 14:00 Insulin Glargine (Lantus) 40 unit QHS SC ; Start 02/15/17 at 21:00 BON GUERRERO MD Feb 15, 2017 17:02
[2017-02-15] MEDS: FUROSEMIDE 20 MG INJ IV SCH (17:23)
[2017-02-15] MEDS: INSULIN GLARGINE [LANtus] 3 ML PEN SC SCH (20:53)
[2017-02-16] VITALS (15 sets, daily range): BP systolic 142–187; BP diastolic 74–89; PULSE 90–101; RESP 17–22
[2017-02-16] MEDS: ACCU-CHEK XX SCH (02:21)
[2017-02-16] MEDS ORDERED: INSULIN ASPART [NOVOLOG] 3 ML PEN SC ONE ×2 (02:30→21:00)
[2017-02-16] MEDS: FUROSEMIDE 20 MG INJ IV SCH ×2 (06:15→17:38)
[2017-02-16] MEDS: HEPARIN 5,000 UNIT/0.5 ML VIAL SC SCH ×3 (06:22→22:58)
[2017-02-16 07:17] LABS: HEMATOCRIT 35.4 % (42.0-52.0); HEMOGLOBIN 10.7 g/dl (14.0-18.0); LYMPHOCYTES % 8.6 % (15.0-51.0); MEAN CORPUSCULAR HEMOGLOBIN 26.3 pg (29.0-33.0); MEAN CORPUSCULAR HGB CONC 30.2 g/dl (32.0-37.0); MEAN PLATELET VOLUME 9.9 fl (7.4-10.4); MONOCYTE # 0.6 10^3/ul (0.3-0.9); MONOCYTES % 5.5 % (0.0-11.0); NEUTROPHIL # 9.5 10^3/ul (1.6-7.5); PLATELET COUNT 308 10^3/UL (140-415); RED BLOOD COUNT 4.07 10^6/ul (4.70-6.10); RED CELL DISTRIBUTION WIDTH 13.4 % (11.5-14.5); WHITE BLOOD COUNT 11.2 10^3/ul (4.8-10.8)
[2017-02-16 07:41] LABS: MAGNESIUM 1.9 mg/dl (1.7-2.5); PHOSPHORUS 3.7 mg/dl (2.5-4.9)
[2017-02-16] MEDS: ALBUTEROL/IPRATROPIUM (NEB) 3 ML AMP HHN SCH ×3 (08:00→20:28)
[2017-02-16 08:02] LABS: CALCIUM 8.8 mg/dl (8.4-10.2); CREATININE 0.98 mg/dl (0.61-1.24); POTASSIUM 4.3 mmol/L (3.5-5.1)
[2017-02-16] MEDS: INSULIN ASPART [NOVOLOG] 3 ML PEN SC SCH ×7 (08:51→21:03)
[2017-02-16] MEDS: ASPIRIN 81 MG TAB PO SCH (08:53)
[2017-02-16] MEDS: FERROUS SULFATE (EC) 325 MG TAB PO SCH ×2 (08:53→22:54)
[2017-02-16] MEDS: METHYLPREDNISOLONE 40 MG INJ IV SCH (08:53)
[2017-02-16] MEDS: GABAPENTIN 300 MG CAP PO SCH ×3 (08:53→22:54)
[2017-02-16] MEDS: FAMOTIDINE 20 MG TAB PO SCH ×2 (08:53→22:53)
[2017-02-16] MEDS: SALMETEROL/FLUTICASONE 250/50 INHA INH SCH ×2 (08:53→22:53)
[2017-02-16] MEDS: NIFEdipine (XL) 60 MG TAB PO SCH (08:58)
--- NOTE | 2017-02-16 09:22 | CONS ---
Date/Time of Note Date/Time of Note DATE: 02/16/17 TIME: 09:19 Assessment/Plan Assessment/Plan Additional Assessment/Plan 1. Hypotension-Now improved/NL EF by echo this admit - better overall. 2. Congestive heart failure, diastolic, acute on chronic- better s/p thoracosenthesis - con't gentle diuresis - Dr. Abdoulaye Mariano also follows 3. Shortness of breath, likely combination of congestive heart failure and chronic obstructive pulmonary disease- improved with fluid removal. 4. Diabetes mellitus- on meds, keep euglycemic. 5. History of renal failure - ongoing, avoid nephrotoxic merds. 6. Ongoing tobacco usage. 7. Dyslipidemia. Consultation Date/Type/Reason Admit Date/Time Feb 12, 2017 at 02:12 Initial Consult Date 02/13/17 Type of Consultation: NEPHROLOGY Referring Provider: BRENDA CHAVEZ 24 HR Interval Summary Free Text/Dictation NO acute events - BP on high side - add therapy now. ROS: No fever, no chills, no nausea, no vomiting, no diarrhea/constipation No recent weight changes No chest pain, no PND, no orthopnea No dizziness, blurred vision No thirst, no heat or cold intolerance Exam/Review of Systems Vital Signs Vitals Vital Signs Date Time Temp Pulse Resp B/P Pulse Ox O2 Delivery O2 Flow Rate FiO2 02/16/17 08:14 98.1 95 18 173/84 93 02/16/17 07:54 Nasal Cannula 2.0 02/15/17 23:00 30 Intake and Output 02/15/17 02/15/17 02/16/17 15:00 23:00 07:00 Intake Total 1000 ml 360 ml Output Total 500 ml 400 ml Balance 500 ml -40 ml Exam General: WN/WD/NAD, AOx 2-3 HEENT: Unicetric/atraumatic/EOMI (follow commands) NECK: JVD elevated, no thyromegaly Lymph: no lymphadenopathy HEART: regular with no S3, II/ systolic murmur at apex LUNGS: Coarse sounds ABD: soft, NT, ND, +BS : Intact Neuro: non focal SKIN: chronic changes EXT: trace edema Results Result Diagram: 02/16/1728 02/16/1728 Results 24 hrs Laboratory Tests Test 02/15/17 12:57 02/15/17 17:28 02/15/17 20:46 02/16/17 02:18 Bedside Glucose 274 H 194 273 H 366 H Test 02/16/17 06:28 02/16/17 08:30 White Blood Count 11.2 H Red Blood Count 4.07 L Hemoglobin 10.7 L Hematocrit 35.4 L Mean Corpuscular Volume 87.0 Mean Corpuscular Hemoglobin 26.3 L Mean Corpuscular Hemoglobin Concent 30.2 L Red Cell Distribution Width 13.4 Platelet Count 308 Mean Platelet Volume 9.9 Neutrophils % 85.0 H Lymphocytes % 8.6 L Monocytes % 5.5 Eosinophils % 0.0 Basophils % 0.0 Nucleated Red Blood Cells % 0.0 Neutrophils # 9.5 H Lymphocytes # 1.0 Monocytes # 0.6 Eosinophils # 0.0 Basophils # 0.0 Nucleated Red Blood Cells # 0.0 Sodium Level 141 Potassium Level 4.3 Chloride Level 99 Carbon Dioxide Level 36 H Anion Gap 10 Blood Urea Nitrogen 37 H Creatinine 0.98 Glucose Level 360 H Calcium Level 8.8 Phosphorus Level 3.7 Magnesium Level 1.9 Bedside Glucose 355 H Medications Medications Current Medications Ferrous Sulfate (Ferrous Sulfate (Ec)) 325 mg BID PO Last administered on 02/16 08:53; Admin Dose 325 MG; Start 02/12/17 at 09:00 Gabapentin (Neurontin) 300 mg TID PO Last administered on 02/16/17 08:53; Admin Dose 300 MG; Start 02/12/17 at 09:00 Metoprolol Succinate (Toprol Xl) 25 mg BID PO Last administered on 02/12/17 08 :59; Admin Dose 25 MG; Start 02/12/17 at 09:00; Status Future Hold Nifedipine (Procardia Xl) 60 mg DAILY PO Last administered on 02/16/17 08:58 ; Admin Dose 60 MG; Start 02/12/17 at 09:00; Status Future hold Salmeterol Xinafoate/ Fluticasone (Advair 250/50 Diskus) 1 inh BID INH Last administered on 02/16/17 08:53; Admin Dose 1 INH; Start 02/12/17 at 09:00 Miscellaneous Information 1 ea NOTE XX ; Start 02/12/17 at 04:30 Glucose (Glutose) 15 gm Q15M PRN PO DECREASED GLUCOSE; Start 02/12/17 at 04:30 Glucose (Glutose) 22.5 gm Q15M PRN PO DECREASED GLUCOSE; Start 02/12/17 at 04: 30 Dextrose (D50w Syringe) 25 ml Q15M PRN IV DECREASED GLUCOSE Last administered on 02/13/17 08:18; Admin Dose 25 ML; Start 02/12/17 at 04:30 Dextrose (D50w Syringe) 50 ml Q15M PRN IV DECREASED GLUCOSE; Start 02/12/17 at 04:30 Glucagon (Glucagen) 1 mg Q15M PRN IM DECREASED GLUCOSE; Start 02/12/17 at 04:30 Glucose (Glutose) 15 gm Q15M PRN BUCCAL DECREASED GLUCOSE; Start 02/12/17 at 04 :30 Ondansetron HCl (Zofran Inj) 4 mg Q6H PRN IV NAUSEA AND/OR VOMITING; Start 02/12/17 at 04:30 Aspirin (Aspirin) 81 mg DAILY PO Last administered on 02/16/17 08:53; Admin Dose 81 MG; Start 02/12/17 at 09:00 Nitroglycerin (Nitroglycerin (Sl Tab) 0.4 Mg) 1 tab Q5M PRN SL CHEST PAIN; Start 02/12/17 at 04:30 Acetaminophen (Tylenol Tab) 650 mg Q6H PRN PO PAIN LEVEL 1-3 OR FEVER Last administered on 02/13/17 20:00; Admin Dose 650 MG; Start 02/12/17 at 04:30 Morphine Sulfate (morphine) 2 mg Q4H PRN IV PAIN LEVEL 7-10 Last administered on 02/12/17 07:14; Admin Dose 2 MG; Start 02/12/17 at 04:30 Docusate Sodium (Colace) 100 mg Q12H PRN PO CONSTIPATION; Start 02/12/17 at 04: 30 Bisacodyl (Dulcolax) 5 mg DAILY PRN PO CONSTIPATION Last administered on 13:56; Admin Dose 5 MG; Start 02/12/17 at 04:30 Famotidine (Pepcid) 20 mg Q12 PO Last administered on 02/16/17 08:53; Admin Dose 20 MG; Start 02/12/17 at 09:00 Diagnostic Test (Pha) 1 ea 1 ea 02 XX Last administered on 02/16/17 02:21; Admin Dose 1 EA; Start 02/13/17 at 02:00 Levofloxacin/ Dextrose (Levaquin 500mg/ D5W 100 ml (Pmx)) 100 ml @ 100 mls/hr Q48H IVPB Last administered on 02/14/17 12:05; Admin Dose 100 MLS/HR; Start 02/14/17 at 13:00 Heparin Sodium (Porcine) (Heparin (5000 Units/0.5 ml)) 5,000 unit Q8 SC Last administered on 02/16/17 06:22; Admin Dose 5,000 UNIT; Start 02/13/17 at 14:00 Methylprednisolone Sodium Succinate (Solu-Medrol) 40 mg Q12 IV Last administered on 02/16/17 08:53; Admin Dose 40 MG; Start 02/13/17 at 14:00 Insulin Glargine (Lantus) 40 unit QHS SC Last administered on 02/15/17 20:53; Admin Dose 40 UNIT; Start 02/15/17 at 21:00 JOSE M ARRINGTON MD Feb 16, 2017 09:22
[2017-02-16] MEDS: NPH, HUMAN INSULIN ISOPHANE 3ML VIAL SC SCH ×2 (11:01→21:39)
[2017-02-16] MEDS: LEVOFLOXACIN 500MG/D5W (PMX) 100 ML IVPB SCH (13:04)
[2017-02-16] MEDS: hydrALAzine 20 MG INJ IV PRN (13:10)
--- NOTE | 2017-02-16 13:25 | PN ---
Date/Time of Note Date/Time of Note DATE: 02/16/17 TIME: 13:23 Assessment/Plan VTE Prophylaxis VTE Prophylaxis Intervention: SCD's Lines/Catheters IV [facility]from [facility] [place] [facility] Assessment/Plan Chief Complaint/Hosp Course Assessment and plan 1. Acute respiratory failure. Hypoxic and hypercapnic secondary to COPD and diastolic heart failure. Continue bronchodilators. Noted with pleural effusion. Follow-up with wool and pelt grader if need for possible thoracentesis. Respiratory status is improving at this time. Taper off steroid treatment 2. Episodic hypotension requiring IV pressors. Resolved at present. Etiology unclear. Monitor for now. 3. Recurrent right-sided pleural effusion. Patient does have history of multiple thoracentesis. Noted status post ultrasound-guided thoracentesis on February 13, 2017 with 1.2 L of fluid removed. Follow-up with wool and pelt grader recommendations. 4. Anemia of chronic disease. Continue iron supplement. 5. Essential hypertension. Continue antihypertensives. Monitor for hypotension. 6. Acute on chronic kidney disease. 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 Renally dose medications. Monitor renal panel. 7. CHF exacerbation. Acute on chronic. Patient with ejection fraction 60-65% . Continue optimal medical management per wheel lacer and truer recommendation. 8. Nicotine abuse. Cessation advised. Disposition and plan: Still noted with elevated blood glucose. Insulin regimen was adjusted. Hydralazine as needed for systolic greater than 160. Anticipate discharge within the next 24 hours if medically stable Discussed plan of care with Dr. Barlow Problems: Subjective 24 Hr Interval Summary Free Text/Dictation No reports of shortness of breath at this time. Denies any chest pain or cough. 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: 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 intact, nl mental status, nl speech Results Result Diagram: 02/16/1762702/16/17627 Results 24 hrs Laboratory Tests Test 02/15/17 17:28 02/15/17 20:46 02/16/17 02:18 02/16/17 06:28 Bedside Glucose 194 273 H 366 H White Blood Count 11.2 H Red Blood Count 4.07 L Hemoglobin 10.7 L Hematocrit 35.4 L Mean Corpuscular Volume 87.0 Mean Corpuscular Hemoglobin 26.3 L Mean Corpuscular Hemoglobin Concent 30.2 L Red Cell Distribution Width 13.4 Platelet Count 308 Mean Platelet Volume 9.9 Neutrophils % 85.0 H Lymphocytes % 8.6 L Monocytes % 5.5 Eosinophils % 0.0 Basophils % 0.0 Nucleated Red Blood Cells % 0.0 Neutrophils # 9.5 H Lymphocytes # 1.0 Monocytes # 0.6 Eosinophils # 0.0 Basophils # 0.0 Nucleated Red Blood Cells # 0.0 Sodium Level 141 Potassium Level 4.3 Chloride Level 99 Carbon Dioxide Level 36 H Anion Gap 10 Blood Urea Nitrogen 37 H Creatinine 0.98 Glucose Level 360 H Calcium Level 8.8 Phosphorus Level 3.7 Magnesium Level 1.9 Test 02/16/17 08:30 02/16/17 11:52 Bedside Glucose 355 H 305 H Medications Medications Current Medications Ferrous Sulfate (Ferrous Sulfate (Ec)) 325 mg BID PO Last administered on 02/16 08:53; Admin Dose 325 MG; Start 02/12/17 at 09:00 Gabapentin (Neurontin) 300 mg TID PO Last administered on 02/16/17 08:53; Admin Dose 300 MG; Start 02/12/17 at 09:00 Metoprolol Succinate (Toprol Xl) 25 mg BID PO Last administered on 02/12/17 08 :59; Admin Dose 25 MG; Start 02/12/17 at 09:00; Status Future Hold Nifedipine (Procardia Xl) 60 mg DAILY PO Last administered on 02/16/17 08:58 ; Admin Dose 60 MG; Start 02/12/17 at 09:00; Status Future hold Salmeterol Xinafoate/ Fluticasone (Advair 250/50 Diskus) 1 inh BID INH Last administered on 02/16/17 08:53; Admin Dose 1 INH; Start 02/12/17 at 09:00 Miscellaneous Information 1 ea NOTE XX ; Start 02/12/17 at 04:30 Glucose (Glutose) 15 gm Q15M PRN PO DECREASED GLUCOSE; Start 02/12/17 at 04:30 Glucose (Glutose) 22.5 gm Q15M PRN PO DECREASED GLUCOSE; Start 02/12/17 at 04: 30 Dextrose (D50w Syringe) 25 ml Q15M PRN IV DECREASED GLUCOSE Last administered on 02/13/17 08:18; Admin Dose 25 ML; Start 02/12/17 at 04:30 Dextrose (D50w Syringe) 50 ml Q15M PRN IV DECREASED GLUCOSE; Start 02/12/17 at 04:30 Glucagon (Glucagen) 1 mg Q15M PRN IM DECREASED GLUCOSE; Start 02/12/17 at 04:30 Glucose (Glutose) 15 gm Q15M PRN BUCCAL DECREASED GLUCOSE; Start 02/12/17 at 04 :30 Ondansetron HCl (Zofran Inj) 4 mg Q6H PRN IV NAUSEA AND/OR VOMITING; Start 02/12/17 at 04:30 Aspirin (Aspirin) 81 mg DAILY PO Last administered on 02/16/17 08:53; Admin Dose 81 MG; Start 02/12/17 at 09:00 Nitroglycerin (Nitroglycerin (Sl Tab) 0.4 Mg) 1 tab Q5M PRN SL CHEST PAIN; Start 02/12/17 at 04:30 Acetaminophen (Tylenol Tab) 650 mg Q6H PRN PO PAIN LEVEL 1-3 OR FEVER Last administered on 02/13/17 20:00; Admin Dose 650 MG; Start 02/12/17 at 04:30 Morphine Sulfate (morphine) 2 mg Q4H PRN IV PAIN LEVEL 7-10 Last administered on 02/12/17 07:14; Admin Dose 2 MG; Start 02/12/17 at 04:30 Docusate Sodium (Colace) 100 mg Q12H PRN PO CONSTIPATION; Start 02/12/17 at 04: 30 Bisacodyl (Dulcolax) 5 mg DAILY PRN PO CONSTIPATION Last administered on 13:56; Admin Dose 5 MG; Start 02/12/17 at 04:30 Famotidine (Pepcid) 20 mg Q12 PO Last administered on 02/16/17 08:53; Admin Dose 20 MG; Start 02/12/17 at 09:00 Diagnostic Test (Pha) 1 ea 1 ea 02 XX Last administered on 02/16/17 02:21; Admin Dose 1 EA; Start 02/13/17 at 02:00 Levofloxacin/ Dextrose (Levaquin 500mg/ D5W 100 ml (Pmx)) 100 ml @ 100 mls/hr Q48H IVPB Last administered on 02/14/17 12:05; Admin Dose 100 MLS/HR; Start 02/14/17 at 13:00 Heparin Sodium (Porcine) (Heparin (5000 Units/0.5 ml)) 5,000 unit Q8 SC Last administered on 02/16/17 06:22; Admin Dose 5,000 UNIT; Start 02/13/17 at 14:00 Insulin Glargine (Lantus) 40 unit QHS SC Last administered on 02/15/17 20:53; Admin Dose 40 UNIT; Start 02/15/17 at 21:00 Insulin Human NPH (Humulin N) 10 unit Q12 SC Last administered on 02/16/17 11 :01; Admin Dose 10 UNIT; Start 02/16/17 at 09:30 Losartan Potassium (Cozaar) 50 mg BID PO ; Start 02/16/17 at 21:00 Prednisone (Prednisone) 20 mg DAILY PO ; Start 02/17/17 at 09:00 Hydralazine HCl (Apresoline) 10 mg Q4H PRN IV sbp>160; Start 02/16/17 at 13:00 BRIANDA TYLER Feb 16, 2017 13:25
--- NOTE | 2017-02-16 14:38 | CONS ---
Date/Time of Note Date/Time of Note DATE: 02/16/17 TIME: 14:36 Assessment/Plan Assessment/Plan Additional Assessment/Plan Assessment and recommendations; 1. Patient admitted with CHF and COPD exacerbation with marked overall clinical improvement. Agree with stopping Solu-Medrol and switching the patient to prednisone to be tapered further on outpatient basis. Consider discharge. Patient will need to have a sleep study done on outpatient basis to rule out sleep apnea. Consultation Date/Type/Reason Admit Date/Time Feb 12, 2017 at 02:12 Initial Consult Date 02/13/17 Type of Consultation: Pulmonary Referring Provider: RBENDA CHAVEZ 24 HR Interval Summary Free Text/Dictation Patient's condition is stable. Denies any shortness of breath. Any chest pain , wheezing. General exam; elderly male, awake alert, currently in no distress. Exam/Review of Systems Vital Signs Vitals Vital Signs Date Time Temp Pulse Resp B/P Pulse Ox O2 Delivery O2 Flow Rate FiO2 02/16/17 12:25 2.0 02/16/17 12:24 108 20 90 Nasal Cannula 02/16/17 12:18 98.4 186/89 02/15/17 23:00 30 Intake and Output 02/15/17 02/15/17 02/16/17 15:00 23:00 07:00 Intake Total 1000 ml 360 ml Output Total 500 ml 400 ml Balance 500 ml -40 ml Exam HEENT exam; supple neck, no JVD. No lymphadenopathy. Midline trachea. No thyromegaly. Patient is edentulous. Pupils are equal and reactive to light. Chest exam; diminished but clear breath sounds. S1-S2 audible, no murmurs. Regular rhythm. Abdomen exam; soft, nontender. No organomegaly. Bowel sounds audible. Extremity exam; no peripheral edema. No clubbing. Pulses 1+ bilaterally. [employer] exam; no focal deficit. Results Result Diagram: 02/16/1762702/16/17627 Results 24 hrs Laboratory Tests Test 02/15/17 17:28 02/15/17 20:46 02/16/17 02:18 02/16/17 06:28 Bedside Glucose 194 273 H 366 H White Blood Count 11.2 H Red Blood Count 4.07 L Hemoglobin 10.7 L Hematocrit 35.4 L Mean Corpuscular Volume 87.0 Mean Corpuscular Hemoglobin 26.3 L Mean Corpuscular Hemoglobin Concent 30.2 L Red Cell Distribution Width 13.4 Platelet Count 308 Mean Platelet Volume 9.9 Neutrophils % 85.0 H Lymphocytes % 8.6 L Monocytes % 5.5 Eosinophils % 0.0 Basophils % 0.0 Nucleated Red Blood Cells % 0.0 Neutrophils # 9.5 H Lymphocytes # 1.0 Monocytes # 0.6 Eosinophils # 0.0 Basophils # 0.0 Nucleated Red Blood Cells # 0.0 Sodium Level 141 Potassium Level 4.3 Chloride Level 99 Carbon Dioxide Level 36 H Anion Gap 10 Blood Urea Nitrogen 37 H Creatinine 0.98 Glucose Level 360 H Calcium Level 8.8 Phosphorus Level 3.7 Magnesium Level 1.9 Test 02/16/17 08:30 02/16/17 11:52 Bedside Glucose 355 H 305 H Medications Medications Current Medications Ferrous Sulfate (Ferrous Sulfate (Ec)) 325 mg BID PO Last administered on 02/16 08:53; Admin Dose 325 MG; Start 02/12/17 at 09:00 Gabapentin (Neurontin) 300 mg TID PO Last administered on 02/16/17 13:03; Admin Dose 300 MG; Start 02/12/17 at 09:00 Metoprolol Succinate (Toprol Xl) 25 mg BID PO Last administered on 02/12/17 08 :59; Admin Dose 25 MG; Start 02/12/17 at 09:00; Status Future Hold Nifedipine (Procardia Xl) 60 mg DAILY PO Last administered on 02/16/17 08:58 ; Admin Dose 60 MG; Start 02/12/17 at 09:00; Status Future hold Salmeterol Xinafoate/ Fluticasone (Advair 250/50 Diskus) 1 inh BID INH Last administered on 02/16/17 08:53; Admin Dose 1 INH; Start 02/12/17 at 09:00 Miscellaneous Information 1 ea NOTE XX ; Start 02/12/17 at 04:30 Glucose (Glutose) 15 gm Q15M PRN PO DECREASED GLUCOSE; Start 02/12/17 at 04:30 Glucose (Glutose) 22.5 gm Q15M PRN PO DECREASED GLUCOSE; Start 02/12/17 at 04: 30 Dextrose (D50w Syringe) 25 ml Q15M PRN IV DECREASED GLUCOSE Last administered on 02/13/17 08:18; Admin Dose 25 ML; Start 02/12/17 at 04:30 Dextrose (D50w Syringe) 50 ml Q15M PRN IV DECREASED GLUCOSE; Start 02/12/17 at 04:30 Glucagon (Glucagen) 1 mg Q15M PRN IM DECREASED GLUCOSE; Start 02/12/17 at 04:30 Glucose (Glutose) 15 gm Q15M PRN BUCCAL DECREASED GLUCOSE; Start 02/12/17 at 04 :30 Ondansetron HCl (Zofran Inj) 4 mg Q6H PRN IV NAUSEA AND/OR VOMITING; Start 02/12/17 at 04:30 Aspirin (Aspirin) 81 mg DAILY PO Last administered on 02/16/17 08:53; Admin Dose 81 MG; Start 02/12/17 at 09:00 Nitroglycerin (Nitroglycerin (Sl Tab) 0.4 Mg) 1 tab Q5M PRN SL CHEST PAIN; Start 02/12/17 at 04:30 Acetaminophen (Tylenol Tab) 650 mg Q6H PRN PO PAIN LEVEL 1-3 OR FEVER Last administered on 02/13/17 20:00; Admin Dose 650 MG; Start 02/12/17 at 04:30 Morphine Sulfate (morphine) 2 mg Q4H PRN IV PAIN LEVEL 7-10 Last administered on 02/12/17 07:14; Admin Dose 2 MG; Start 02/12/17 at 04:30 Docusate Sodium (Colace) 100 mg Q12H PRN PO CONSTIPATION; Start 02/12/17 at 04: 30 Bisacodyl (Dulcolax) 5 mg DAILY PRN PO CONSTIPATION Last administered on 13:56; Admin Dose 5 MG; Start 02/12/17 at 04:30 Famotidine (Pepcid) 20 mg Q12 PO Last administered on 02/16/17 08:53; Admin Dose 20 MG; Start 02/12/17 at 09:00 Diagnostic Test (Pha) 1 ea 1 ea 02 XX Last administered on 02/16/17 02:21; Admin Dose 1 EA; Start 02/13/17 at 02:00 Levofloxacin/ Dextrose (Levaquin 500mg/ D5W 100 ml (Pmx)) 100 ml @ 100 mls/hr Q48H IVPB Last administered on 02/16/17 13:04; Admin Dose 100 MLS/HR; Start 02/14/17 at 13:00 Heparin Sodium (Porcine) (Heparin (5000 Units/0.5 ml)) 5,000 unit Q8 SC Last administered on 02/16/17 13:14; Admin Dose 5,000 UNIT; Start 02/13/17 at 14:00 Insulin Glargine (Lantus) 40 unit QHS SC Last administered on 02/15/17 20:53; Admin Dose 40 UNIT; Start 02/15/17 at 21:00 Insulin Human NPH (Humulin N) 10 unit Q12 SC Last administered on 02/16/17 11 :01; Admin Dose 10 UNIT; Start 02/16/17 at 09:30 Losartan Potassium (Cozaar) 50 mg BID PO ; Start 02/16/17 at 21:00 Prednisone (Prednisone) 20 mg DAILY PO ; Start 02/17/17 at 09:00 Hydralazine HCl (Apresoline) 10 mg Q4H PRN IV sbp>160 Last administered on 13:10; Admin Dose 10 MG; Start 02/16/17 at 13:00 DAILY LARIOS Feb 16, 2017 14:38
--- NOTE | 2017-02-16 17:26 | CONS ---
Date/Time of Note Date/Time of Note DATE: 02/16/17 TIME: 17:24 Assessment/Plan Assessment/Plan Additional Assessment/Plan 1. Non oliguric acute kidney injury on chronic kidney disease 2/2 hemodynamics from pulmonary edema and CHF, pt ran out of lasix 2. Chronic kidney disease III secondary to a diabetic Nephropathy 3. Acute Resp failure hypoxic due to pulmoanry edema and CHF due to ran out of lasix 4. acute COPD Exacerbation 5. acute CHF exacerbaton , acute on chronic, diastoilc, ECHO showed ejection fraction, 62 to 65 with stage I diastolic dysfunction. 6. History of hyperlipidemia. 7. History of diabetes mellitus 8. Moderate right pleural effusion s/p throacentesis US guided 02/13/2017- 1.2 L removed Plan : US guided Thoracentesis done-1.2 L removed, Bp stable, in systolic 140s, lasix PO 20mg IV BID pulmonary has been following pt , on IV solu-medrol for acute COPD exacerbation. K normal today, Cr normal, pt need better glycemic control because BS runs in 250-300s- d/w Primary team pt had a full CKD work up done on last admission no need to repeat it will continue to follow up Consultation Date/Type/Reason Admit Date/Time Feb 12, 2017 at 02:12 Initial Consult Date 02/13/17 Type of Consultation: NEPHROLOGY Referring Provider: BRENDA CHAVEZ Exam/Review of Systems Vital Signs Vitals Vital Signs Date Time Temp Pulse Resp B/P Pulse Ox O2 Delivery O2 Flow Rate FiO2 02/16/17 16:00 96 02/16/17 15:28 97.7 17 159/77 95 02/16/17 12:25 2.0 02/16/17 12:24 Nasal Cannula 02/15/17 23:00 30 Intake and Output 02/15/17 02/15/17 02/16/17 15:00 23:00 07:00 Intake Total 1000 ml 360 ml Output Total 500 ml 400 ml Balance 500 ml -40 ml Exam Constitutional: alert, oriented, well developed Respiratory: crackles/rales RML and RLL, no wheezing Cardiovascular: nl pulses, regular rate and rhythm Gastrointestinal: nl liver, spleen, soft Extremities: normal pulses Results Result Diagram: 02/16/17 0628 02/16/1728 Results 24 hrs Laboratory Tests Test 02/15/17 17:28 10/9/17 20:46 02/16/17 02:18 02/16/17 06:28 Bedside Glucose 194 273 H 366 H White Blood Count 11.2 H Red Blood Count 4.07 L Hemoglobin 10.7 L Hematocrit 35.4 L Mean Corpuscular Volume 87.0 Mean Corpuscular Hemoglobin 26.3 L Mean Corpuscular Hemoglobin Concent 30.2 L Red Cell Distribution Width 13.4 Platelet Count 308 Mean Platelet Volume 9.9 Neutrophils % 85.0 H Lymphocytes % 8.6 L Monocytes % 5.5 Eosinophils % 0.0 Basophils % 0.0 Nucleated Red Blood Cells % 0.0 Neutrophils # 9.5 H Lymphocytes # 1.0 Monocytes # 0.6 Eosinophils # 0.0 Basophils # 0.0 Nucleated Red Blood Cells # 0.0 Sodium Level 141 Potassium Level 4.3 Chloride Level 99 Carbon Dioxide Level 36 H Anion Gap 10 Blood Urea Nitrogen 37 H Creatinine 0.98 Glucose Level 360 H Calcium Level 8.8 Phosphorus Level 3.7 Magnesium Level 1.9 Test 02/16/17 08:30 02/16/17 11:52 Bedside Glucose 355 H 305 H Medications Medications Current Medications Ferrous Sulfate (Ferrous Sulfate (Ec)) 325 mg BID PO Last administered on 02/16 08:53; Admin Dose 325 MG; Start 02/12/17 at 09:00 Gabapentin (Neurontin) 300 mg TID PO Last administered on 02/16/17 13:03; Admin Dose 300 MG; Start 02/12/17 at 09:00 Metoprolol Succinate (Toprol Xl) 25 mg BID PO Last administered on 02/12/17 08 :59; Admin Dose 25 MG; Start 02/12/17 at 09:00; Status Future Hold Nifedipine (Procardia Xl) 60 mg DAILY PO Last administered on 02/16/17 08:58 ; Admin Dose 60 MG; Start 02/12/17 at 09:00; Status Future hold Salmeterol Xinafoate/ Fluticasone (Advair 250/50 Diskus) 1 inh BID INH Last administered on 02/16/17 08:53; Admin Dose 1 INH; Start 02/12/17 at 09:00 Miscellaneous Information 1 ea NOTE XX ; Start 02/12/17 at 04:30 Glucose (Glutose) 15 gm Q15M PRN PO DECREASED GLUCOSE; Start 02/12/17 at 04:30 Glucose (Glutose) 22.5 gm Q15M PRN PO DECREASED GLUCOSE; Start 02/12/17 at 04: 30 Dextrose (D50w Syringe) 25 ml Q15M PRN IV DECREASED GLUCOSE Last administered on 02/13/17 08:18; Admin Dose 25 ML; Start 02/12/17 at 04:30 Dextrose (D50w Syringe) 50 ml Q15M PRN IV DECREASED GLUCOSE; Start 02/12/17 at 04:30 Glucagon (Glucagen) 1 mg Q15M PRN IM DECREASED GLUCOSE; Start 02/12/17 at 04:30 Glucose (Glutose) 15 gm Q15M PRN BUCCAL DECREASED GLUCOSE; Start 02/12/17 at 04 :30 Ondansetron HCl (Zofran Inj) 4 mg Q6H PRN IV NAUSEA AND/OR VOMITING; Start 02/12/17 at 04:30 Aspirin (Aspirin) 81 mg DAILY PO Last administered on 02/16/17 08:53; Admin Dose 81 MG; Start 02/12/17 at 09:00 Nitroglycerin (Nitroglycerin (Sl Tab) 0.4 Mg) 1 tab Q5M PRN SL CHEST PAIN; Start 02/12/17 at 04:30 Acetaminophen (Tylenol Tab) 650 mg Q6H PRN PO PAIN LEVEL 1-3 OR FEVER Last administered on 02/13/17 20:00; Admin Dose 650 MG; Start 02/12/17 at 04:30 Morphine Sulfate (morphine) 2 mg Q4H PRN IV PAIN LEVEL 7-10 Last administered on 02/12/17 07:14; Admin Dose 2 MG; Start 02/12/17 at 04:30 Docusate Sodium (Colace) 100 mg Q12H PRN PO CONSTIPATION; Start 02/12/17 at 04: 30 Bisacodyl (Dulcolax) 5 mg DAILY PRN PO CONSTIPATION Last administered on 13:56; Admin Dose 5 MG; Start 02/12/17 at 04:30 Famotidine (Pepcid) 20 mg Q12 PO Last administered on 02/16/17 08:53; Admin Dose 20 MG; Start 02/12/17 at 09:00 Diagnostic Test (Pha) 1 ea 1 ea 02 XX Last administered on 02/16/17 02:21; Admin Dose 1 EA; Start 02/13/17 at 02:00 Levofloxacin/ Dextrose (Levaquin 500mg/ D5W 100 ml (Pmx)) 100 ml @ 100 mls/hr Q48H IVPB Last administered on 02/16/17 13:04; Admin Dose 100 MLS/HR; Start 02/14/17 at 13:00 Heparin Sodium (Porcine) (Heparin (5000 Units/0.5 ml)) 5,000 unit Q8 SC Last administered on 02/16/17 13:14; Admin Dose 5,000 UNIT; Start 02/13/17 at 14:00 Insulin Glargine (Lantus) 40 unit QHS SC Last administered on 02/15/17 20:53; Admin Dose 40 UNIT; Start 02/15/17 at 21:00 Insulin Human NPH (Humulin N) 10 unit Q12 SC Last administered on 02/16/17 11 :01; Admin Dose 10 UNIT; Start 02/16/17 at 09:30 Losartan Potassium (Cozaar) 50 mg BID PO ; Start 02/16/17 at 21:00 Prednisone (Prednisone) 20 mg DAILY PO ; Start 02/17/17 at 09:00 Hydralazine HCl (Apresoline) 10 mg Q4H PRN IV sbp>160 Last administered on 13:10; Admin Dose 10 MG; Start 02/16/17 at 13:00 BON GUERRERO MD Feb 16, 2017 17:25
[2017-02-16] MEDS: BISACODYL (EC) 5 MG TAB PO PRN (19:09)
[2017-02-16] MEDS: INSULIN GLARGINE [LANtus] 3 ML PEN SC SCH (21:05)
[2017-02-16] MEDS: LOSARTAN 50 MG TAB PO SCH (22:54)
[2017-02-17] VITALS (11 sets, daily range): BP systolic 148–168; BP diastolic 75–83; PULSE 81–95; RESP 17–18
[2017-02-17] MEDS: ACCU-CHEK XX SCH (01:38)
[2017-02-17] MEDS: FUROSEMIDE 20 MG INJ IV SCH ×2 (06:02→18:07)
[2017-02-17] MEDS: HEPARIN 5,000 UNIT/0.5 ML VIAL SC SCH ×3 (06:09→21:23)
[2017-02-17 07:21] LABS: BASOPHILS % 0.1 % (0.0-2.0); EOSINOPHILS % 0.2 % (0.0-7.0); HEMATOCRIT 39.2 % (42.0-52.0); HEMOGLOBIN 11.9 g/dl (14.0-18.0); LYMPHOCYTES # 3.3 10^3/ul (0.8-2.9); LYMPHOCYTES % 24.5 % (15.0-51.0); MEAN CORPUSCULAR HEMOGLOBIN 26.4 pg (29.0-33.0); MEAN CORPUSCULAR HGB CONC 30.4 g/dl (32.0-37.0); MEAN CORPUSCULAR VOLUME 87.1 fl (82.0-101.0); MEAN PLATELET VOLUME 10.2 fl (7.4-10.4); MONOCYTE # 1.1 10^3/ul (0.3-0.9); MONOCYTES % 8.5 % (0.0-11.0); NEUTROPHIL # 8.7 10^3/ul (1.6-7.5); NEUTROPHILS % 65.3 % (39.0-77.0); PLATELET COUNT 358 10^3/UL (140-415); RED CELL DISTRIBUTION WIDTH 13.7 % (11.5-14.5); WHITE BLOOD COUNT 13.3 10^3/ul (4.8-10.8)
[2017-02-17] MEDS: ALBUTEROL/IPRATROPIUM (NEB) 3 ML AMP HHN SCH ×2 (07:24→13:39)
[2017-02-17 07:41] LABS: CREATININE 1.05 mg/dl (0.61-1.24); POTASSIUM 3.8 mmol/L (3.5-5.1)
[2017-02-17] MEDS: INSULIN ASPART [NOVOLOG] 3 ML PEN SC SCH ×7 (07:55→21:22)
[2017-02-17] MEDS: FAMOTIDINE 20 MG TAB PO SCH ×2 (08:58→21:14)
[2017-02-17] MEDS: ASPIRIN 81 MG TAB PO SCH (08:59)
[2017-02-17] MEDS: SALMETEROL/FLUTICASONE 250/50 INHA INH SCH ×2 (08:59→21:17)
[2017-02-17] MEDS: FERROUS SULFATE (EC) 325 MG TAB PO SCH ×2 (08:59→21:14)
[2017-02-17] MEDS: NIFEdipine (XL) 60 MG TAB PO SCH (08:59)
[2017-02-17] MEDS: LOSARTAN 50 MG TAB PO SCH ×2 (08:59→21:14)
[2017-02-17] MEDS: GABAPENTIN 300 MG CAP PO SCH ×3 (08:59→21:14)
[2017-02-17] MEDS ORDERED: predniSONE 20 MG TAB PO SCH (09:00)
--- NOTE | 2017-02-17 10:59 | PN ---
Date/Time of Note Date/Time of Note DATE: 02/17/17 TIME: 10:54 Assessment/Plan VTE Prophylaxis VTE Prophylaxis Intervention: SCD's Lines/Catheters IV [facility]from [facility] Assessment/Plan Chief Complaint/Hosp Course Assessment and plan 1. Acute respiratory failure. Hypoxic and hypercapnic secondary to COPD and diastolic heart failure. Continue bronchodilators. Follow-up with safe technician if need for possible thoracentesis. Respiratory status is improving at this time. Taper off steroid completely. 2. Episodic hypotension requiring IV pressors. Resolved at present. Etiology unclear. Monitor for now. 3. Recurrent right-sided pleural effusion. Patient does have history of multiple thoracentesis. Noted status post ultrasound-guided thoracentesis on February 13, 2017 with 1.2 L of fluid removed. Follow-up with safe technician recommendations. 4. Anemia of chronic disease. Continue iron supplement. 5. Essential hypertension. Continue antihypertensives. Monitor for hypotension. 6. Acute on chronic kidney disease. Sales Recruiting Coordinator following. Renally dose medications. Monitor renal panel. 7. CHF exacerbation. Acute on chronic. Patient with ejection fraction 60-65% . Continue optimal medical management per home therapy teacher recommendation. 8. Nicotine abuse. Cessation advised. Disposition and plan: Still with elevated blood glucose. Insulin regimen adjusted again. Also antihypertensive medication adjusted. Will monitor for glucose stability prior to DC. Discussed plan of care with Dr. Barlow Problems: Subjective 24 Hr Interval Summary Free Text/Dictation Patient reports that her breathing at this time. No specific complaints Exam/Review of Systems Vital Signs Vitals Vital Signs Date Time Temp Pulse Resp B/P Pulse Ox O2 Delivery O2 Flow Rate FiO2 02/17/17 08:23 86 02/17/17 07:53 98.3 17 156/80 96 02/17/17 07:24 2.0 02/17/17 07:24 Nasal Cannula 02/16/17 23:00 30 Intake and Output 02/16/17 02/16/17 02/17/17 15:00 23:00 07:00 Intake Total 100 ml 1500 ml 800 ml Output Total 900 ml Balance 100 ml 600 ml 800 ml Exam Constitutional: alert, oriented Psych: nl mood/affect Eyes: nl conjunctiva Neck: supple Respiratory: clear to auscultation, normal air movement Cardiovascular: regular rate and rhythm Gastrointestinal: non-tender, soft Neurological: BILLER II-XII intact, nl mental status, nl speech Results Result Diagram: 02/17/1724 02/17/17 0624 Results 24 hrs Laboratory Tests Test 02/16/17 11:52 02/16/17 17:29 02/16/17 20:49 02/16/17 21:34 Bedside Glucose 305 H 235 H 375 H 334 H Test 02/17/17 01:35 02/17/17 06:24 02/17/17 08:56 Bedside Glucose 229 H 247 H White Blood Count 13.3 H Red Blood Count 4.50 L Hemoglobin 11.9 L Hematocrit 39.2 L Mean Corpuscular Volume 87.1 Mean Corpuscular Hemoglobin 26.4 L Mean Corpuscular Hemoglobin Concent 30.4 L Red Cell Distribution Width 13.7 Platelet Count 358 Mean Platelet Volume 10.2 Neutrophils % 65.3 Lymphocytes % 24.5 Monocytes % 8.5 Eosinophils % 0.2 Basophils % 0.1 Nucleated Red Blood Cells % 0.0 Neutrophils # 8.7 H Lymphocytes # 3.3 H Monocytes # 1.1 H Eosinophils # 0.0 Basophils # 0.0 Nucleated Red Blood Cells # 0.0 Sodium Level 140 Potassium Level 3.8 Chloride Level 100 Carbon Dioxide Level 33 H Anion Gap 11 Blood Urea Nitrogen 36 H Creatinine 1.05 Glucose Level 254 #H Calcium Level 9.0 Medications Medications Current Medications Ferrous Sulfate (Ferrous Sulfate (Ec)) 325 mg BID PO Last administered on 02/17 08:59; Admin Dose 325 MG; Start 02/12/17 at 09:00 Gabapentin (Neurontin) 300 mg TID PO Last administered on 02/17/17 08:59; Admin Dose 300 MG; Start 02/12/17 at 09:00 Metoprolol Succinate (Toprol Xl) 25 mg BID PO Last administered on 02/12/17 08 :59; Admin Dose 25 MG; Start 02/12/17 at 09:00; Status Future Hold Salmeterol Xinafoate/ Fluticasone (Advair 250/50 Diskus) 1 inh BID INH Last administered on 02/17/17 08:59; Admin Dose 1 INH; Start 02/12/17 at 09:00 Miscellaneous Information 1 ea NOTE XX ; Start 02/12/17 at 04:30 Glucose (Glutose) 15 gm Q15M PRN PO DECREASED GLUCOSE; Start 02/12/17 at 04:30 Glucose (Glutose) 22.5 gm Q15M PRN PO DECREASED GLUCOSE; Start 02/12/17 at 04: 30 Dextrose (D50w Syringe) 25 ml Q15M PRN IV DECREASED GLUCOSE Last administered on 02/13/17 08:18; Admin Dose 25 ML; Start 02/12/17 at 04:30 Dextrose (D50w Syringe) 50 ml Q15M PRN IV DECREASED GLUCOSE; Start 02/12/17 at 04:30 Glucagon (Glucagen) 1 mg Q15M PRN IM DECREASED GLUCOSE; Start 02/12/17 at 04:30 Glucose (Glutose) 15 gm Q15M PRN BUCCAL DECREASED GLUCOSE; Start 02/12/17 at 04 :30 Ondansetron HCl (Zofran Inj) 4 mg Q6H PRN IV NAUSEA AND/OR VOMITING; Start 02/12/17 at 04:30 Aspirin (Aspirin) 81 mg DAILY PO Last administered on 02/17/17 08:59; Admin Dose 81 MG; Start 02/12/17 at 09:00 Nitroglycerin (Nitroglycerin (Sl Tab) 0.4 Mg) 1 tab Q5M PRN SL CHEST PAIN; Start 02/12/17 at 04:30 Acetaminophen (Tylenol Tab) 650 mg Q6H PRN PO PAIN LEVEL 1-3 OR FEVER Last administered on 02/13/17 20:00; Admin Dose 650 MG; Start 02/12/17 at 04:30 Morphine Sulfate (morphine) 2 mg Q4H PRN IV PAIN LEVEL 7-10 Last administered on 02/12/17 07:14; Admin Dose 2 MG; Start 02/12/17 at 04:30 Docusate Sodium (Colace) 100 mg Q12H PRN PO CONSTIPATION; Start 02/12/17 at 04: 30 Bisacodyl (Dulcolax) 5 mg DAILY PRN PO CONSTIPATION Last administered on 19:09; Admin Dose 5 MG; Start 02/12/17 at 04:30 Famotidine (Pepcid) 20 mg Q12 PO Last administered on 02/17/17 08:58; Admin Dose 20 MG; Start 02/12/17 at 09:00 Diagnostic Test (Pha) 1 ea 1 ea 02 XX Last administered on 02/17/17 01:38; Admin Dose 1 EA; Start 02/13/17 at 02:00 Levofloxacin/ Dextrose (Levaquin 500mg/ D5W 100 ml (Pmx)) 100 ml @ 100 mls/hr Q48H IVPB Last administered on 02/16/17 13:04; Admin Dose 100 MLS/HR; Start 02/14/17 at 13:00 Heparin Sodium (Porcine) (Heparin (5000 Units/0.5 ml)) 5,000 unit Q8 SC Last administered on 02/17/17 06:09; Admin Dose 5,000 UNIT; Start 02/13/17 at 14:00 Losartan Potassium (Cozaar) 50 mg BID PO Last administered on 02/17/17 08:59 ; Admin Dose 50 MG; Start 02/16/17 at 21:00 Hydralazine HCl (Apresoline) 10 mg Q4H PRN IV sbp>160 Last administered on 13:10; Admin Dose 10 MG; Start 02/16/17 at 13:00 Nifedipine (Procardia Xl) 90 mg DAILY PO ; Start 02/18/17 at 09:00; Status UNV Nifedipine (Procardia Xl) 30 mg ONCE ONCE PO ; Start 02/17/17 at 11:00; Stop 02/17/17 at 11:01; Status UNV Insulin Glargine (Lantus) 45 unit QHS SC ; Start 02/17/17 at 21:00; Status UNV BRIANDA TYLER Feb 17, 2017 10:59
[2017-02-17] MEDS ORDERED: NIFEdipine (XL) 30 MG TAB PO ONE (11:00)
--- NOTE | 2017-02-17 11:07 | PDOCDIS ---
Discharge Instructions DIAGNOSIS Discharge Diagnosis 1. Acute respiratory failure. Hypoxic and hypercapnic secondary to COPD and diastolic heart failure. 2. Episodic hypotension requiring IV pressors. Resolved at present. 3. Recurrent right-sided pleural effusion. 4. Anemia of chronic disease. 5. Essential hypertension. 6. Acute on chronic kidney disease. 7. CHF exacerbation. Acute on chronic. 8. Nicotine abuse. CONDITION Patient Condition: Stable HOME CARE INSTRUCTIONS: Diet Instructions: Low Fat /CholesterolSpecial Diet: CARB CONTROLLED FOLLOW UP/APPOINTMENTS Follow-up Plan 1. Follow-up with her primary care provider within a week 2. Follow-up with Dr. Willis Valdovinos in 1-2 weeks BRIANDA TYLER Feb 17, 2017 11:07
--- NOTE | 2017-02-17 13:00 | CONS ---
Date/Time of Note Date/Time of Note DATE: 02/17/17 TIME: 12:58 Assessment/Plan Assessment/Plan Additional Assessment/Plan Assessment and recommendations; 1. Patient admitted with acute exacerbation and acute bronchitis with marked overall clinical improvement. Continue current treatment. Taper prednisone in 3 days. Consider discharge. Consultation Date/Type/Reason Admit Date/Time Feb 12, 2017 at 02:12 Initial Consult Date 02/13/17 Type of Consultation: Pulmonary Referring Provider: BRENDA CHAVEZ 24 HR Interval Summary Free Text/Dictation Patient's condition is stable. Denies any shortness of breath, chest pain, wheezing. General exam; middle-aged male, awake alert, currently in no distress. Exam/Review of Systems Vital Signs Vitals Vital Signs Date Time Temp Pulse Resp B/P Pulse Ox O2 Delivery O2 Flow Rate FiO2 02/17/17 12:23 89 02/17/17 11:15 98.6 18 148/75 93 02/17/17 07:45 Nasal Cannula 2.0 02/16/17 23:00 30 Intake and Output 02/16/17 02/16/17 02/17/17 15:00 23:00 07:00 Intake Total 100 ml 1500 ml 800 ml Output Total 900 ml Balance 100 ml 600 ml 800 ml Exam HEENT exam; supple neck, no JVD. No lymphadenopathy. Midline trachea. No thyromegaly. Patient is edentulous, has bilateral intraocular lens implants. Chest exam; diminished but clear breath sounds. S1-S2 audible, no murmurs. Regular rhythm. Abdomen exam; soft, no organomegaly. Nontender. Bowel sounds audible. Extremity exam; no peripheral edema. No clubbing. PRODUCT LISTER exam; no focal deficit. Results Result Diagram: 02/17/1724 02/17/1724 Results 24 hrs Laboratory Tests Test 02/16/17 17:29 02/16/17 20:49 02/16/17 21:34 02/17/17 01:35 Bedside Glucose 235 H 375 H 334 H 229 H Test 02/17/17 06:24 02/17/17 08:56 White Blood Count 13.3 H Red Blood Count 4.50 L Hemoglobin 11.9 L Hematocrit 39.2 L Mean Corpuscular Volume 87.1 Mean Corpuscular Hemoglobin 26.4 L Mean Corpuscular Hemoglobin Concent 30.4 L Red Cell Distribution Width 13.7 Platelet Count 358 Mean Platelet Volume 10.2 Neutrophils % 65.3 Lymphocytes % 24.5 Monocytes % 8.5 Eosinophils % 0.2 Basophils % 0.1 Nucleated Red Blood Cells % 0.0 Neutrophils # 8.7 H Lymphocytes # 3.3 H Monocytes # 1.1 H Eosinophils # 0.0 Basophils # 0.0 Nucleated Red Blood Cells # 0.0 Sodium Level 140 Potassium Level 3.8 Chloride Level 100 Carbon Dioxide Level 33 H Anion Gap 11 Blood Urea Nitrogen 36 H Creatinine 1.05 Glucose Level 254 #H Calcium Level 9.0 Bedside Glucose 247 H Medications Medications Current Medications Ferrous Sulfate (Ferrous Sulfate (Ec)) 325 mg BID PO Last administered on 02/17 08:59; Admin Dose 325 MG; Start 02/12/17 at 09:00 Gabapentin (Neurontin) 300 mg TID PO Last administered on 02/17/17 08:59; Admin Dose 300 MG; Start 02/12/17 at 09:00 Metoprolol Succinate (Toprol Xl) 25 mg BID PO Last administered on 02/12/17 08 :59; Admin Dose 25 MG; Start 02/12/17 at 09:00; Status Future Hold Salmeterol Xinafoate/ Fluticasone (Advair 250/50 Diskus) 1 inh BID INH Last administered on 02/17/17 08:59; Admin Dose 1 INH; Start 02/12/17 at 09:00 Miscellaneous Information 1 ea NOTE XX ; Start 02/12/17 at 04:30 Glucose (Glutose) 15 gm Q15M PRN PO DECREASED GLUCOSE; Start 02/12/17 at 04:30 Glucose (Glutose) 22.5 gm Q15M PRN PO DECREASED GLUCOSE; Start 02/12/17 at 04: 30 Dextrose (D50w Syringe) 25 ml Q15M PRN IV DECREASED GLUCOSE Last administered on 02/13/17 08:18; Admin Dose 25 ML; Start 02/12/17 at 04:30 Dextrose (D50w Syringe) 50 ml Q15M PRN IV DECREASED GLUCOSE; Start 02/12/17 at 04:30 Glucagon (Glucagen) 1 mg Q15M PRN IM DECREASED GLUCOSE; Start 02/12/17 at 04:30 Glucose (Glutose) 15 gm Q15M PRN BUCCAL DECREASED GLUCOSE; Start 02/12/17 at 04 :30 Ondansetron HCl (Zofran Inj) 4 mg Q6H PRN IV NAUSEA AND/OR VOMITING; Start 02/12/17 at 04:30 Aspirin (Aspirin) 81 mg DAILY PO Last administered on 02/17/17 08:59; Admin Dose 81 MG; Start 02/12/17 at 09:00 Nitroglycerin (Nitroglycerin (Sl Tab) 0.4 Mg) 1 tab Q5M PRN SL CHEST PAIN; Start 02/12/17 at 04:30 Acetaminophen (Tylenol Tab) 650 mg Q6H PRN PO PAIN LEVEL 1-3 OR FEVER Last administered on 02/13/17 20:00; Admin Dose 650 MG; Start 02/12/17 at 04:30 Morphine Sulfate (morphine) 2 mg Q4H PRN IV PAIN LEVEL 7-10 Last administered on 02/12/17 07:14; Admin Dose 2 MG; Start 02/12/17 at 04:30 Docusate Sodium (Colace) 100 mg Q12H PRN PO CONSTIPATION; Start 02/12/17 at 04: 30 Bisacodyl (Dulcolax) 5 mg DAILY PRN PO CONSTIPATION Last administered on 19:09; Admin Dose 5 MG; Start 02/12/17 at 04:30 Famotidine (Pepcid) 20 mg Q12 PO Last administered on 02/17/17 08:58; Admin Dose 20 MG; Start 02/12/17 at 09:00 Diagnostic Test (Pha) 1 ea 1 ea 02 XX Last administered on 02/17/17 01:38; Admin Dose 1 EA; Start 02/13/17 at 02:00 Levofloxacin/ Dextrose (Levaquin 500mg/ D5W 100 ml (Pmx)) 100 ml @ 100 mls/hr Q48H IVPB Last administered on 02/16/17 13:04; Admin Dose 100 MLS/HR; Start 02/14/17 at 13:00 Heparin Sodium (Porcine) (Heparin (5000 Units/0.5 ml)) 5,000 unit Q8 SC Last administered on 02/17/17 06:09; Admin Dose 5,000 UNIT; Start 02/13/17 at 14:00 Losartan Potassium (Cozaar) 50 mg BID PO Last administered on 02/17/17 08:59 ; Admin Dose 50 MG; Start 02/16/17 at 21:00 Hydralazine HCl (Apresoline) 10 mg Q4H PRN IV sbp>160 Last administered on 13:10; Admin Dose 10 MG; Start 02/16/17 at 13:00 Nifedipine (Procardia Xl) 90 mg DAILY PO ; Start 02/18/17 at 09:00 Insulin Glargine (Lantus) 45 unit QHS SC ; Start 02/17/17 at 21:00 DAILY LARIOS Feb 17, 2017 13:00
--- NOTE | 2017-02-17 15:26 | CONS ---
Date/Time of Note Date/Time of Note DATE: 02/17/17 TIME: 15:23 Assessment/Plan Assessment/Plan Chief Complaint/Hosp Course IMPRESSION 1. Hypotension-Now with HTN somewhat uncontrolled/NL EF by echo this admit 2. Congestive heart failure, diastolic, acute on chronic. 3. Shortness of breath, likely combination of congestive heart failure and chronic obstructive pulmonary disease. 4. Diabetes mellitus. 5. History of renal failure. 6. Ongoing tobacco usage. 7. Dyslipidemia. REcc: -Tele -serial ecg's -Continue procardia which was increased today and f/u BP -Conntinue lasix diuresis -Consider repeat thoracentesis -Continue asa -Contineu steroids/bronchodilators Problems: Consultation Date/Type/Reason Admit Date/Time Feb 12, 2017 at 02:12 Initial Consult Date 02/13/17 Type of Consultation: cardiology Reason for Consultation Hypotension Referring Provider: BRENDA CHAVEZ Exam/Review of Systems Vital Signs Vitals Vital Signs Date Time Temp Pulse Resp B/P Pulse Ox O2 Delivery O2 Flow Rate FiO2 02/17/17 13:39 90 18 92 21 02/17/17 11:15 98.6 148/75 02/17/17 07:45 Nasal Cannula 2.0 Intake and Output 02/16/17 02/16/17 02/17/17 15:00 23:00 07:00 Intake Total 100 ml 1500 ml 800 ml Output Total 900 ml Balance 100 ml 600 ml 800 ml Exam Review of Systems: CONSTITUTIONAL: No fevers, chills. PULMONARY: No sob CARDIOVASCULAR: No chest pain/palpitations GASTROINTESTINAL: No nausea/vomiting. GENITOURINARY: No hematuria/dysuria. MUSCULOSKELETAL: No myagias/arthalgias. PSYCHIATRIC: The patient denies depression. NEUROLOGIC: No weakness Constitutional: alert Psych: no complaints Head: normocephalic ENMT: mucosa pink and moist Neck: jvd (9 cm water), supple Respiratory: diminished breath sounds (at bases/B) Cardiovascular: regular rate and rhythm Gastrointestinal: non-tender Musculoskeletal: muscle tone (normal) Extremities: edema (Bilateral) Neurological: other (No focal deficits) Results Result Diagram: 02/17/17 0624 02/17/17 0624 Results 24 hrs Laboratory Tests Test 02/16/17 17:29 02/16/17 20:49 02/16/17 21:34 02/17/17 01:35 Bedside Glucose 235 H 375 H 334 H 229 H Test 02/17/17 06:24 02/17/17 08:56 02/17/17 13:06 White Blood Count 13.3 H Red Blood Count 4.50 L Hemoglobin 11.9 L Hematocrit 39.2 L Mean Corpuscular Volume 87.1 Mean Corpuscular Hemoglobin 26.4 L Mean Corpuscular Hemoglobin Concent 30.4 L Red Cell Distribution Width 13.7 Platelet Count 358 Mean Platelet Volume 10.2 Neutrophils % 65.3 Lymphocytes % 24.5 Monocytes % 8.5 Eosinophils % 0.2 Basophils % 0.1 Nucleated Red Blood Cells % 0.0 Neutrophils # 8.7 H Lymphocytes # 3.3 H Monocytes # 1.1 H Eosinophils # 0.0 Basophils # 0.0 Nucleated Red Blood Cells # 0.0 Sodium Level 140 Potassium Level 3.8 Chloride Level 100 Carbon Dioxide Level 33 H Anion Gap 11 Blood Urea Nitrogen 36 H Creatinine 1.05 Glucose Level 254 #H Calcium Level 9.0 Bedside Glucose 247 H 185 Medications Medications Current Medications Ferrous Sulfate (Ferrous Sulfate (Ec)) 325 mg BID PO Last administered on 02/17 08:59; Admin Dose 325 MG; Start 02/12/17 at 09:00 Gabapentin (Neurontin) 300 mg TID PO Last administered on 02/17/17 13:07; Admin Dose 300 MG; Start 02/12/17 at 09:00 Metoprolol Succinate (Toprol Xl) 25 mg BID PO Last administered on 02/12/17 08 :59; Admin Dose 25 MG; Start 02/12/17 at 09:00; Status Future Hold Salmeterol Xinafoate/ Fluticasone (Advair 250/50 Diskus) 1 inh BID INH Last administered on 02/17/17 08:59; Admin Dose 1 INH; Start 02/12/17 at 09:00 Miscellaneous Information 1 ea NOTE XX ; Start 02/12/17 at 04:30 Glucose (Glutose) 15 gm Q15M PRN PO DECREASED GLUCOSE; Start 02/12/17 at 04:30 Glucose (Glutose) 22.5 gm Q15M PRN PO DECREASED GLUCOSE; Start 02/12/17 at 04: 30 Dextrose (D50w Syringe) 25 ml Q15M PRN IV DECREASED GLUCOSE Last administered on 02/13/17 08:18; Admin Dose 25 ML; Start 02/12/17 at 04:30 Dextrose (D50w Syringe) 50 ml Q15M PRN IV DECREASED GLUCOSE; Start 02/12/17 at 04:30 Glucagon (Glucagen) 1 mg Q15M PRN IM DECREASED GLUCOSE; Start 02/12/17 at 04:30 Glucose (Glutose) 15 gm Q15M PRN BUCCAL DECREASED GLUCOSE; Start 02/12/17 at 04 :30 Ondansetron HCl (Zofran Inj) 4 mg Q6H PRN IV NAUSEA AND/OR VOMITING; Start 02/12/17 at 04:30 Aspirin (Aspirin) 81 mg DAILY PO Last administered on 02/17/17 08:59; Admin Dose 81 MG; Start 02/12/17 at 09:00 Nitroglycerin (Nitroglycerin (Sl Tab) 0.4 Mg) 1 tab Q5M PRN SL CHEST PAIN; Start 02/12/17 at 04:30 Acetaminophen (Tylenol Tab) 650 mg Q6H PRN PO PAIN LEVEL 1-3 OR FEVER Last administered on 02/13/17 20:00; Admin Dose 650 MG; Start 02/12/17 at 04:30 Morphine Sulfate (morphine) 2 mg Q4H PRN IV PAIN LEVEL 7-10 Last administered on 02/12/17 07:14; Admin Dose 2 MG; Start 02/12/17 at 04:30 Docusate Sodium (Colace) 100 mg Q12H PRN PO CONSTIPATION; Start 02/12/17 at 04: 30 Bisacodyl (Dulcolax) 5 mg DAILY PRN PO CONSTIPATION Last administered on 19:09; Admin Dose 5 MG; Start 02/12/17 at 04:30 Famotidine (Pepcid) 20 mg Q12 PO Last administered on 02/17/17 08:58; Admin Dose 20 MG; Start 02/12/17 at 09:00 Diagnostic Test (Pha) 1 ea 1 ea 02 XX Last administered on 02/17/17 01:38; Admin Dose 1 EA; Start 02/13/17 at 02:00 Levofloxacin/ Dextrose (Levaquin 500mg/ D5W 100 ml (Pmx)) 100 ml @ 100 mls/hr Q48H IVPB Last administered on 02/16/17 13:04; Admin Dose 100 MLS/HR; Start 02/14/17 at 13:00 Heparin Sodium (Porcine) (Heparin (5000 Units/0.5 ml)) 5,000 unit Q8 SC Last administered on 02/17/17 13:12; Admin Dose 5,000 UNIT; Start 02/13/17 at 14:00 Losartan Potassium (Cozaar) 50 mg BID PO Last administered on 02/17/17 08:59 ; Admin Dose 50 MG; Start 02/16/17 at 21:00 Hydralazine HCl (Apresoline) 10 mg Q4H PRN IV sbp>160 Last administered on 13:10; Admin Dose 10 MG; Start 02/16/17 at 13:00 Nifedipine (Procardia Xl) 90 mg DAILY PO ; Start 02/18/17 at 09:00 Insulin Glargine (Lantus) 45 unit QHS SC ; Start 02/17/17 at 21:00 JOSÉ GARCIA Feb 17, 2017 15:26
[2017-02-17] MEDS: hydrALAzine 20 MG INJ IV PRN (18:07)
--- NOTE | 2017-02-17 19:02 | CONS ---
Date/Time of Note Date/Time of Note DATE: 02/17/17 TIME: 19:00 Assessment/Plan Assessment/Plan Additional Assessment/Plan 1. Non oliguric acute kidney injury on chronic kidney disease 2/2 hemodynamics from pulmonary edema and CHF, pt ran out of lasix 2. Chronic kidney disease III secondary to a diabetic Nephropathy 3. Acute Resp failure hypoxic due to pulmoanry edema and CHF due to ran out of lasix 4. acute COPD Exacerbation 5. acute CHF exacerbaton , acute on chronic, diastoilc, ECHO showed ejection fraction, 62 to 65 with stage I diastolic dysfunction. 6. History of hyperlipidemia. 7. History of diabetes mellitus 8. Moderate right pleural effusion s/p throacentesis US guided 02/13/2017- 1.2 L removed Plan : US guided Thoracentesis done-1.2 L removed, Bp stable, in systolic 140s, lasix PO 20mg IV BID pulmonary has been following pt for COPD exacerbation K normal today, Cr normal, pt need better glycemic control because BS runs in 250-300s- d/w Primary team pt had a full CKD work up done on last admission no need to repeat it will continue to follow up Consultation Date/Type/Reason Admit Date/Time Feb 12, 2017 at 02:12 Initial Consult Date 02/13/17 Type of Consultation: NEPHROLOGY Referring Provider: BRENDA CHAVEZ 24 HR Interval Summary Free Text/Dictation no acute events stale ton tele floor , Cr 1.05,HCo3 33 Exam/Review of Systems Vital Signs Vitals Vital Signs Date Time Temp Pulse Resp B/P Pulse Ox O2 Delivery O2 Flow Rate FiO2 02/17/17 16:29 81 02/17/17 16:08 97.9 18 168/83 90 02/17/17 13:39 21 02/17/17 07:45 Nasal Cannula 2.0 Intake and Output 02/16/17 02/16/17 02/17/17 15:00 23:00 07:00 Intake Total 100 ml 1500 ml 800 ml Output Total 900 ml Balance 100 ml 600 ml 800 ml Exam Constitutional: alert Psych: no complaints ENMT: nl external ears & nose Neck: non-tender, supple Respiratory: clear to auscultation, diminished breath sounds, normal air movement Cardiovascular: nl pulses, regular rate and rhythm Results Result Diagram: 10/11/17 0624 10/11/17 0624 Results 24 hrs Laboratory Tests Test 02/16/17 20:49 02/16/17 21:34 02/17/17 01:35 02/17/17 06:24 Bedside Glucose 375 H 334 H 229 H White Blood Count 13.3 H Red Blood Count 4.50 L Hemoglobin 11.9 L Hematocrit 39.2 L Mean Corpuscular Volume 87.1 Mean Corpuscular Hemoglobin 26.4 L Mean Corpuscular Hemoglobin Concent 30.4 L Red Cell Distribution Width 13.7 Platelet Count 358 Mean Platelet Volume 10.2 Neutrophils % 65.3 Lymphocytes % 24.5 Monocytes % 8.5 Eosinophils % 0.2 Basophils % 0.1 Nucleated Red Blood Cells % 0.0 Neutrophils # 8.7 H Lymphocytes # 3.3 H Monocytes # 1.1 H Eosinophils # 0.0 Basophils # 0.0 Nucleated Red Blood Cells # 0.0 Sodium Level 140 Potassium Level 3.8 Chloride Level 100 Carbon Dioxide Level 33 H Anion Gap 11 Blood Urea Nitrogen 36 H Creatinine 1.05 Glucose Level 254 #H Calcium Level 9.0 Test 02/17/17 08:56 02/17/17 13:06 02/17/17 17:55 Bedside Glucose 247 H 185 233 H Medications Medications Current Medications Ferrous Sulfate (Ferrous Sulfate (Ec)) 325 mg BID PO Last administered on 02/17 08:59; Admin Dose 325 MG; Start 02/12/17 at 09:00 Gabapentin (Neurontin) 300 mg TID PO Last administered on 02/17/17 13:07; Admin Dose 300 MG; Start 02/12/17 at 09:00 Metoprolol Succinate (Toprol Xl) 25 mg BID PO Last administered on 02/12/17 08 :59; Admin Dose 25 MG; Start 02/12/17 at 09:00; Status Future Hold Salmeterol Xinafoate/ Fluticasone (Advair 250/50 Diskus) 1 inh BID INH Last administered on 02/17/17 08:59; Admin Dose 1 INH; Start 02/12/17 at 09:00 Miscellaneous Information 1 ea NOTE XX ; Start 02/12/17 at 04:30 Glucose (Glutose) 15 gm Q15M PRN PO DECREASED GLUCOSE; Start 02/12/17 at 04:30 Glucose (Glutose) 22.5 gm Q15M PRN PO DECREASED GLUCOSE; Start 02/12/17 at 04: 30 Dextrose (D50w Syringe) 25 ml Q15M PRN IV DECREASED GLUCOSE Last administered on 02/13/17 08:18; Admin Dose 25 ML; Start 02/12/17 at 04:30 Dextrose (D50w Syringe) 50 ml Q15M PRN IV DECREASED GLUCOSE; Start 02/12/17 at 04:30 Glucagon (Glucagen) 1 mg Q15M PRN IM DECREASED GLUCOSE; Start 02/12/17 at 04:30 Glucose (Glutose) 15 gm Q15M PRN BUCCAL DECREASED GLUCOSE; Start 02/12/17 at 04 :30 Ondansetron HCl (Zofran Inj) 4 mg Q6H PRN IV NAUSEA AND/OR VOMITING; Start 02/12/17 at 04:30 Aspirin (Aspirin) 81 mg DAILY PO Last administered on 02/17/17 08:59; Admin Dose 81 MG; Start 02/12/17 at 09:00 Nitroglycerin (Nitroglycerin (Sl Tab) 0.4 Mg) 1 tab Q5M PRN SL CHEST PAIN; Start 02/12/17 at 04:30 Acetaminophen (Tylenol Tab) 650 mg Q6H PRN PO PAIN LEVEL 1-3 OR FEVER Last administered on 02/13/17 20:00; Admin Dose 650 MG; Start 02/12/17 at 04:30 Morphine Sulfate (morphine) 2 mg Q4H PRN IV PAIN LEVEL 7-10 Last administered on 02/12/17 07:14; Admin Dose 2 MG; Start 02/12/17 at 04:30 Docusate Sodium (Colace) 100 mg Q12H PRN PO CONSTIPATION; Start 02/12/17 at 04: 30 Bisacodyl (Dulcolax) 5 mg DAILY PRN PO CONSTIPATION Last administered on 19:09; Admin Dose 5 MG; Start 02/12/17 at 04:30 Famotidine (Pepcid) 20 mg Q12 PO Last administered on 02/17/17 08:58; Admin Dose 20 MG; Start 02/12/17 at 09:00 Diagnostic Test (Pha) 1 ea 1 ea 02 XX Last administered on 02/17/17 01:38; Admin Dose 1 EA; Start 02/13/17 at 02:00 Levofloxacin/ Dextrose (Levaquin 500mg/ D5W 100 ml (Pmx)) 100 ml @ 100 mls/hr Q48H IVPB Last administered on 02/16/17 13:04; Admin Dose 100 MLS/HR; Start 02/14/17 at 13:00 Heparin Sodium (Porcine) (Heparin (5000 Units/0.5 ml)) 5,000 unit Q8 SC Last administered on 02/17/17 13:12; Admin Dose 5,000 UNIT; Start 02/13/17 at 14:00 Losartan Potassium (Cozaar) 50 mg BID PO Last administered on 02/17/17 08:59 ; Admin Dose 50 MG; Start 02/16/17 at 21:00 Hydralazine HCl (Apresoline) 10 mg Q4H PRN IV sbp>160 Last administered on 18:07; Admin Dose 10 MG; Start 02/16/17 at 13:00 Nifedipine (Procardia Xl) 90 mg DAILY PO ; Start 02/18/17 at 09:00 Insulin Glargine (Lantus) 45 unit QHS SC ; Start 02/17/17 at 21:00 BON GUERRERO MD Feb 17, 2017 19:02
[2017-02-17] MEDS ORDERED: INSULIN GLARGINE [LANtus] 3 ML PEN SC SCH (21:00)
[2017-02-17] MEDS: morphine 2 MG INJ IV PRN (21:15)
[2017-02-18] VITALS (10 sets, daily range): BP systolic 107–144; BP diastolic 52–73; PULSE 85–100; RESP 16–24
[2017-02-18] MEDS: ALBUTEROL/IPRATROPIUM (NEB) 3 ML AMP HHN SCH ×3 (00:46→13:53)
[2017-02-18] MEDS: ACCU-CHEK XX SCH (02:40)
[2017-02-18] MEDS: HEPARIN 5,000 UNIT/0.5 ML VIAL SC SCH ×2 (05:44→14:22)
[2017-02-18] MEDS: FUROSEMIDE 20 MG INJ IV SCH (05:46)
[2017-02-18] MEDS: GABAPENTIN 300 MG CAP PO SCH ×2 (08:33→12:09)
[2017-02-18] MEDS: LOSARTAN 50 MG TAB PO SCH (08:33)
[2017-02-18] MEDS: ASPIRIN 81 MG TAB PO SCH (08:33)
[2017-02-18] MEDS: SALMETEROL/FLUTICASONE 250/50 INHA INH SCH (08:34)
[2017-02-18] MEDS: FAMOTIDINE 20 MG TAB PO SCH (08:34)
[2017-02-18] MEDS: FERROUS SULFATE (EC) 325 MG TAB PO SCH (08:34)
[2017-02-18] MEDS: INSULIN ASPART [NOVOLOG] 3 ML PEN SC SCH ×4 (08:44→12:13)
[2017-02-18] MEDS ORDERED: NIFEdipine (XL) 90 MG TAB PO SCH (09:00)
--- NOTE | 2017-02-18 11:19 | CONS ---
Date/Time of Note Date/Time of Note DATE: 02/18/17 TIME: 11:10 Assessment/Plan Assessment/Plan Additional Assessment/Plan 1. Non oliguric acute kidney injury on chronic kidney disease 2/2 hemodynamics from pulmonary edema and CHF, pt ran out of lasix 2. Chronic kidney disease III secondary to a diabetic Nephropathy 3. Acute Resp failure hypoxic due to pulmoanry edema and CHF due to ran out of lasix 4. acute COPD Exacerbation 5. acute CHF exacerbaton , acute on chronic, diastoilc, ECHO showed ejection fraction, 62 to 65 with stage I diastolic dysfunction. 6. History of hyperlipidemia. 7. History of diabetes mellitus 8. Moderate right pleural effusion s/p throacentesis US guided 02/13/2017- 1.2 L removed Plan : continue Lasix PO 20mg IV BID, cr normal, <HCo3 33 yesterday, no labs today to review yet. pulmonary has been following pt for COPD exacerbation pt had a full CKD work up done on last admission no need to repeat it will continue to follow up Consultation Date/Type/Reason Admit Date/Time Feb 12, 2017 at 02:12 Initial Consult Date 02/13/17 Type of Consultation: NEPHROLOGY Referring Provider: BRENDA CHAVEZ 24 HR Interval Summary Free Text/Dictation no acute events, BP stable, afebrile, Cr normal, HCo3 33 yesterday, no labs today to review Exam/Review of Systems Vital Signs Vitals Vital Signs Date Time Temp Pulse Resp B/P Pulse Ox O2 Delivery O2 Flow Rate FiO2 02/18/17 08:00 86 02/18/17 07:41 20 97 Nasal Cannula 2.0 02/18/17 07:06 98.4 144/70 02/17/17 13:39 21 Intake and Output 02/17/17 02/17/17 02/18/17 15:00 23:00 07:00 Intake Total 240 ml Output Total 300 ml Balance -60 ml Exam Constitutional: alert, oriented, well developed Respiratory: crackles/rales RML and RLL, no wheezing Cardiovascular: nl pulses, regular rate and rhythm Gastrointestinal: nl liver, spleen, soft Extremities: normal pulses Results Result Diagram: 02/17/17 0624 02/17/17 0624 Results 24 hrs Laboratory Tests Test 02/17/17 13:06 02/17/17 17:55 02/17/17 21:11 02/18/17 01:46 Bedside Glucose 185 233 H 193 191 Test 02/18/17 08:02 Bedside Glucose 190 Medications Medications Current Medications Ferrous Sulfate (Ferrous Sulfate (Ec)) 325 mg BID PO Last administered on 02/18 08:34; Admin Dose 325 MG; Start 02/12/17 at 09:00 Gabapentin (Neurontin) 300 mg TID PO Last administered on 02/18/17 08:33; Admin Dose 300 MG; Start 02/12/17 at 09:00 Metoprolol Succinate (Toprol Xl) 25 mg BID PO Last administered on 02/12/17 08 :59; Admin Dose 25 MG; Start 02/12/17 at 09:00; Status Future Hold Salmeterol Xinafoate/ Fluticasone (Advair 250/50 Diskus) 1 inh BID INH Last administered on 02/18/17 08:34; Admin Dose 1 INH; Start 02/12/17 at 09:00 Miscellaneous Information 1 ea NOTE XX ; Start 02/12/17 at 04:30 Glucose (Glutose) 15 gm Q15M PRN PO DECREASED GLUCOSE; Start 02/12/17 at 04:30 Glucose (Glutose) 22.5 gm Q15M PRN PO DECREASED GLUCOSE; Start 02/12/17 at 04: 30 Dextrose (D50w Syringe) 25 ml Q15M PRN IV DECREASED GLUCOSE Last administered on 02/13/17 08:18; Admin Dose 25 ML; Start 02/12/17 at 04:30 Dextrose (D50w Syringe) 50 ml Q15M PRN IV DECREASED GLUCOSE; Start 02/12/17 at 04:30 Glucagon (Glucagen) 1 mg Q15M PRN IM DECREASED GLUCOSE; Start 02/12/17 at 04:30 Glucose (Glutose) 15 gm Q15M PRN BUCCAL DECREASED GLUCOSE; Start 02/12/17 at 04 :30 Ondansetron HCl (Zofran Inj) 4 mg Q6H PRN IV NAUSEA AND/OR VOMITING; Start 02/12/17 at 04:30 Aspirin (Aspirin) 81 mg DAILY PO Last administered on 02/18/17 08:33; Admin Dose 81 MG; Start 02/12/17 at 09:00 Nitroglycerin (Nitroglycerin (Sl Tab) 0.4 Mg) 1 tab Q5M PRN SL CHEST PAIN; Start 02/12/17 at 04:30 Acetaminophen (Tylenol Tab) 650 mg Q6H PRN PO PAIN LEVEL 1-3 OR FEVER Last administered on 02/13/17 20:00; Admin Dose 650 MG; Start 02/12/17 at 04:30 Morphine Sulfate (morphine) 2 mg Q4H PRN IV PAIN LEVEL 7-10 Last administered on 02/17/17 21:15; Admin Dose 2 MG; Start 02/12/17 at 04:30 Docusate Sodium (Colace) 100 mg Q12H PRN PO CONSTIPATION Last administered on 02/17/17 21:14; Admin Dose 100 MG; Start 02/12/17 at 04:30 Bisacodyl (Dulcolax) 5 mg DAILY PRN PO CONSTIPATION Last administered on 19:09; Admin Dose 5 MG; Start 02/12/17 at 04:30 Famotidine (Pepcid) 20 mg Q12 PO Last administered on 02/18/17 08:34; Admin Dose 20 MG; Start 02/12/17 at 09:00 Diagnostic Test (Pha) 1 ea 1 ea 02 XX Last administered on 02/18/17 02:40; Admin Dose 1 EA; Start 02/13/17 at 02:00 Levofloxacin/ Dextrose (Levaquin 500mg/ D5W 100 ml (Pmx)) 100 ml @ 100 mls/hr Q48H IVPB Last administered on 02/16/17 13:04; Admin Dose 100 MLS/HR; Start 02/14/17 at 13:00 Heparin Sodium (Porcine) (Heparin (5000 Units/0.5 ml)) 5,000 unit Q8 SC Last administered on 02/18/17 05:44; Admin Dose 5,000 UNIT; Start 02/13/17 at 14:00 Losartan Potassium (Cozaar) 50 mg BID PO Last administered on 02/18/17 08:33 ; Admin Dose 50 MG; Start 02/16/17 at 21:00 Hydralazine HCl (Apresoline) 10 mg Q4H PRN IV sbp>160 Last administered on 18:07; Admin Dose 10 MG; Start 02/16/17 at 13:00 Nifedipine (Procardia Xl) 90 mg DAILY PO Last administered on 02/18/17 08:33 ; Admin Dose 90 MG; Start 02/18/17 at 09:00 Insulin Glargine (Lantus) 45 unit QHS SC Last administered on 02/17/17 21:20 ; Admin Dose 45 UNIT; Start 02/17/17 at 21:00 BON GUERRERO MD Feb 18, 2017 11:19
--- NOTE | 2017-02-18 11:50 | CONS ---
Date/Time of Note Date/Time of Note DATE: 02/18/17 TIME: 11:50 Consultation Date/Type/Reason Admit Date/Time Feb 12, 2017 at 02:12 Initial Consult Date 02/13/17 Type of Consultation: pulmonary Referring Provider: BRENDA CHAVEZ 24 HR Interval Summary Free Text/Dictation dictated [id number] Exam/Review of Systems Vital Signs Vitals Vital Signs Date Time Temp Pulse Resp B/P Pulse Ox O2 Delivery O2 Flow Rate FiO2 02/18/17 11:20 97.9 87 18 107/52 96 02/18/17 07:41 Nasal Cannula 2.0 02/17/17 13:39 21 Intake and Output 02/17/17 02/17/17 02/18/17 15:00 23:00 07:00 Intake Total 240 ml Output Total 300 ml Balance -60 ml Results Result Diagram: 02/17/17 0624 02/17/17 0624 Results 24 hrs Laboratory Tests Test 02/17/17 13:06 02/17/17 17:55 02/17/17 21:11 02/18/17 01:46 Bedside Glucose 185 233 H 193 191 Test 02/18/17 08:02 Bedside Glucose 190 Medications Medications Current Medications Ferrous Sulfate (Ferrous Sulfate (Ec)) 325 mg BID PO Last administered on 02/18 08:34; Admin Dose 325 MG; Start 02/12/17 at 09:00 Gabapentin (Neurontin) 300 mg TID PO Last administered on 02/18/17 08:33; Admin Dose 300 MG; Start 02/12/17 at 09:00 Metoprolol Succinate (Toprol Xl) 25 mg BID PO Last administered on 02/12/17 08 :59; Admin Dose 25 MG; Start 02/12/17 at 09:00; Status Future Hold Salmeterol Xinafoate/ Fluticasone (Advair 250/50 Diskus) 1 inh BID INH Last administered on 02/18/17 08:34; Admin Dose 1 INH; Start 02/12/17 at 09:00 Miscellaneous Information 1 ea NOTE XX ; Start 02/12/17 at 04:30 Glucose (Glutose) 15 gm Q15M PRN PO DECREASED GLUCOSE; Start 02/12/17 at 04:30 Glucose (Glutose) 22.5 gm Q15M PRN PO DECREASED GLUCOSE; Start 02/12/17 at 04: 30 Dextrose (D50w Syringe) 25 ml Q15M PRN IV DECREASED GLUCOSE Last administered on 02/13/17 08:18; Admin Dose 25 ML; Start 02/12/17 at 04:30 Dextrose (D50w Syringe) 50 ml Q15M PRN IV DECREASED GLUCOSE; Start 02/12/17 at 04:30 Glucagon (Glucagen) 1 mg Q15M PRN IM DECREASED GLUCOSE; Start 02/12/17 at 04:30 Glucose (Glutose) 15 gm Q15M PRN BUCCAL DECREASED GLUCOSE; Start 02/12/17 at 04 :30 Ondansetron HCl (Zofran Inj) 4 mg Q6H PRN IV NAUSEA AND/OR VOMITING; Start 02/12/17 at 04:30 Aspirin (Aspirin) 81 mg DAILY PO Last administered on 02/18/17 08:33; Admin Dose 81 MG; Start 02/12/17 at 09:00 Nitroglycerin (Nitroglycerin (Sl Tab) 0.4 Mg) 1 tab Q5M PRN SL CHEST PAIN; Start 02/12/17 at 04:30 Acetaminophen (Tylenol Tab) 650 mg Q6H PRN PO PAIN LEVEL 1-3 OR FEVER Last administered on 02/13/17 20:00; Admin Dose 650 MG; Start 02/12/17 at 04:30 Morphine Sulfate (morphine) 2 mg Q4H PRN IV PAIN LEVEL 7-10 Last administered on 02/17/17 21:15; Admin Dose 2 MG; Start 02/12/17 at 04:30 Docusate Sodium (Colace) 100 mg Q12H PRN PO CONSTIPATION Last administered on 02/17/17 21:14; Admin Dose 100 MG; Start 02/12/17 at 04:30 Bisacodyl (Dulcolax) 5 mg DAILY PRN PO CONSTIPATION Last administered on 19:09; Admin Dose 5 MG; Start 02/12/17 at 04:30 Famotidine (Pepcid) 20 mg Q12 PO Last administered on 02/18/17 08:34; Admin Dose 20 MG; Start 02/12/17 at 09:00 Diagnostic Test (Pha) 1 ea 1 ea 02 XX Last administered on 02/18/17 02:40; Admin Dose 1 EA; Start 02/13/17 at 02:00 Levofloxacin/ Dextrose (Levaquin 500mg/ D5W 100 ml (Pmx)) 100 ml @ 100 mls/hr Q48H IVPB Last administered on 02/16/17 13:04; Admin Dose 100 MLS/HR; Start 02/14/17 at 13:00 Heparin Sodium (Porcine) (Heparin (5000 Units/0.5 ml)) 5,000 unit Q8 SC Last administered on 02/18/17 05:44; Admin Dose 5,000 UNIT; Start 02/13/17 at 14:00 Losartan Potassium (Cozaar) 50 mg BID PO Last administered on 02/18/17 08:33 ; Admin Dose 50 MG; Start 02/16/17 at 21:00 Hydralazine HCl (Apresoline) 10 mg Q4H PRN IV sbp>160 Last administered on 18:07; Admin Dose 10 MG; Start 02/16/17 at 13:00 Nifedipine (Procardia Xl) 90 mg DAILY PO Last administered on 02/18/17 08:33 ; Admin Dose 90 MG; Start 02/18/17 at 09:00 Insulin Glargine (Lantus) 45 unit QHS SC Last administered on 02/17/17 21:20 ; Admin Dose 45 UNIT; Start 02/17/17 at 21:00 DAILY LARIOS Feb 18, 2017 11:50
[2017-02-18] MEDS ORDERED: LOSA50TA2 PO (12:01)
[2017-02-18] MEDS ORDERED: LANT3I SC (12:01)
[2017-02-18] MEDS ORDERED: FURO-110 PO (12:01)
[2017-02-18] MEDS ORDERED: NIFE90TA PO (12:01)
[2017-02-18] MEDS ORDERED: FER325 PO (12:01)
[2017-02-18] MEDS ORDERED: ADV25050 INH (12:01)
[2017-02-18] MEDS ORDERED: NOVO3I SC (12:01)
[2017-02-18] MEDS ORDERED: ALBU8.5H3 INH (12:01)
[2017-02-18] MEDS: LEVOFLOXACIN 500MG/D5W (PMX) 100 ML IVPB SCH (12:09)
--- NOTE | 2017-02-18 12:15 | PN ---
DATE: 02/18/2017 PULMONARY PROGRESS NOTE The patient's condition is stable. The patient remains completely awake, alert, currently in the pr ocess of possibly discharge home. PHYSICAL EXAMINATION: GENERAL: Elderly male, awake, currently in no distress. VITAL SIGNS: Temperature 98 degrees Fahrenheit, respiratory rate is 18 per minute, heart rate 72 pe r minute, blood pressure is 130/70, O2 sat 95%. HEENT: Supple neck, no JVD, no lymphadenopathy, midline trachea, no thyromegaly. Patient is edentu lous, has bilateral intraocular lens implants. CHEST: Diminished but clear breath sounds. HEART: S1, S2 audible. No murmurs, regular rhythm. ABDOMEN: Soft, nontender, protuberant. Bowel sounds audible. EXTREMITIES: No edema. Pulses 1+ bilaterally. CENTRAL NERVOUS SYSTEM: No focal deficit. MEDICATIONS: 1. Levaquin 500 mg IV q. 48 hours. 2. Acetaminophen on a p.r.n. basis. 3. DuoNeb q. 6 hours. 4. Aspirin 81 mg a day. 5. Pepcid 20 mg b.i.d. 6. Feosol 325 mg b.i.d. 7. Lasix 20 mg IV b.i.d. 8. Neurontin 300 mg b.i.d. 9. Subcutaneous heparin 5000 units q. 12 hours. 10. Lantus insulin 45 units daily. 11. Cozaar 50 mg b.i.d. 12. Metoprolol 25 mg b.i.d. 13. Procardia 90 mg daily. 14. Advair 250/50 one puff b.i.d. ASSESSMENT AND PLAN: 1. Patient admitted for acute exacerbation of chronic obstructive pulmonary disease with acute bron chitis with significant clinical improvement. 2. Other comorbidities include hypertension and diabetes which appear fairly stable. RECOMMENDATIONS: Continue current treatment, consider discharge. Dictated By: DAILY GONZALES/DANIAL Conf#: [id number] DID#: [id number]
--- NOTE | 2017-02-18 13:38 | RADRPT ---
Vent Rate: 67 bpm RR Interval: 0 msec [place] Interval: 236 msec QRS Duration: 84 msec QT Interval: 462 msec QTC Interval: 488 msec P-R-T [place]: 13 - 20 - 68 degrees Sinus rhythm with 1st degree AV block Prolonged QT Abnormal ECG Electronically Signed By: Deyvi Sebastian [id number]
--- NOTE | 2017-02-18 13:46 | CONS ---
Date/Time of Note Date/Time of Note DATE: 02/18/17 TIME: 13:41 Assessment/Plan Assessment/Plan Chief Complaint/Hosp Course IMPRESSION 1. Hypertension-NL EF by echo this admit. Improved with increase in procardia XL yesterday 2. Congestive heart failure, diastolic, acute on chronic. 3. Shortness of breath, likely combination of congestive heart failure and chronic obstructive pulmonary disease. 4. Diabetes mellitus. 5. History of renal failure. 6. Ongoing tobacco usage. 7. Dyslipidemia. REcc: -Tele -serial ecg's -Continue procardia with improved BP control -Conntinue lasix diuresis -Consider repeat thoracentesis -Continue asa -Continue steroids/bronchodilators -Folloe resp status closely which is sig improved. If remains stable ok for d/c with outpatient f/u fron cardiac standoint Problems: Consultation Date/Type/Reason Admit Date/Time Feb 12, 2017 at 02:12 Initial Consult Date 02/13/17 Type of Consultation: cardiology Reason for Consultation CHF Referring Provider: BRENDA CHAVEZ Exam/Review of Systems Vital Signs Vitals Vital Signs Date Time Temp Pulse Resp B/P Pulse Ox O2 Delivery O2 Flow Rate FiO2 02/18/17 12:00 90 02/18/17 11:20 97.9 18 107/52 96 02/18/17 07:41 Nasal Cannula 2.0 02/17/17 13:39 21 Intake and Output 02/17/17 02/17/17 02/18/17 15:00 23:00 07:00 Intake Total 240 ml Output Total 300 ml Balance -60 ml Exam Review of Systems: CONSTITUTIONAL: No fevers, chills. PULMONARY: mild sob-improving CARDIOVASCULAR: No chest pain/palpitations GASTROINTESTINAL: No nausea/vomiting. GENITOURINARY: No hematuria/dysuria. MUSCULOSKELETAL: No myagias/arthalgias. PSYCHIATRIC: The patient denies depression. NEUROLOGIC: No weakness Constitutional: alert, oriented Psych: no complaints Head: normocephalic ENMT: mucosa pink and moist Respiratory: diminished breath sounds (R>L at bases) Cardiovascular: regular rate and rhythm Gastrointestinal: non-tender, soft Musculoskeletal: muscle tone (normal) Extremities: edema (none) Neurological: other (No focal deficits) Results Result Diagram: 02/17/1762302/17/17623 Results 24 hrs Laboratory Tests Test 02/17/17 17:55 02/17/17 21:11 02/18/17 01:46 02/18/17 08:02 Bedside Glucose 233 H 193 191 190 Test 02/18/17 11:53 Bedside Glucose 110 Medications Medications Current Medications Ferrous Sulfate (Ferrous Sulfate (Ec)) 325 mg BID PO Last administered on 02/18 08:34; Admin Dose 325 MG; Start 02/12/17 at 09:00 Gabapentin (Neurontin) 300 mg TID PO Last administered on 02/18/17 12:09; Admin Dose 300 MG; Start 02/12/17 at 09:00 Metoprolol Succinate (Toprol Xl) 25 mg BID PO Last administered on 02/12/17 08 :59; Admin Dose 25 MG; Start 02/12/17 at 09:00; Status Future Hold Salmeterol Xinafoate/ Fluticasone (Advair 250/50 Diskus) 1 inh BID INH Last administered on 02/18/17 08:34; Admin Dose 1 INH; Start 02/12/17 at 09:00 Miscellaneous Information 1 ea NOTE XX ; Start 02/12/17 at 04:30 Glucose (Glutose) 15 gm Q15M PRN PO DECREASED GLUCOSE; Start 02/12/17 at 04:30 Glucose (Glutose) 22.5 gm Q15M PRN PO DECREASED GLUCOSE; Start 02/12/17 at 04: 30 Dextrose (D50w Syringe) 25 ml Q15M PRN IV DECREASED GLUCOSE Last administered on 02/13/17 08:18; Admin Dose 25 ML; Start 02/12/17 at 04:30 Dextrose (D50w Syringe) 50 ml Q15M PRN IV DECREASED GLUCOSE; Start 02/12/17 at 04:30 Glucagon (Glucagen) 1 mg Q15M PRN IM DECREASED GLUCOSE; Start 02/12/17 at 04:30 Glucose (Glutose) 15 gm Q15M PRN BUCCAL DECREASED GLUCOSE; Start 02/12/17 at 04 :30 Ondansetron HCl (Zofran Inj) 4 mg Q6H PRN IV NAUSEA AND/OR VOMITING; Start 02/12/17 at 04:30 Aspirin (Aspirin) 81 mg DAILY PO Last administered on 02/18/17 08:33; Admin Dose 81 MG; Start 02/12/17 at 09:00 Nitroglycerin (Nitroglycerin (Sl Tab) 0.4 Mg) 1 tab Q5M PRN SL CHEST PAIN; Start 02/12/17 at 04:30 Acetaminophen (Tylenol Tab) 650 mg Q6H PRN PO PAIN LEVEL 1-3 OR FEVER Last administered on 02/13/17 20:00; Admin Dose 650 MG; Start 02/12/17 at 04:30 Morphine Sulfate (morphine) 2 mg Q4H PRN IV PAIN LEVEL 7-10 Last administered on 02/17/17 21:15; Admin Dose 2 MG; Start 02/12/17 at 04:30 Docusate Sodium (Colace) 100 mg Q12H PRN PO CONSTIPATION Last administered on 02/17/17 21:14; Admin Dose 100 MG; Start 02/12/17 at 04:30 Bisacodyl (Dulcolax) 5 mg DAILY PRN PO CONSTIPATION Last administered on 19:09; Admin Dose 5 MG; Start 02/12/17 at 04:30 Famotidine (Pepcid) 20 mg Q12 PO Last administered on 02/18/17 08:34; Admin Dose 20 MG; Start 02/12/17 at 09:00 Diagnostic Test (Pha) 1 ea 1 ea 02 XX Last administered on 02/18/17 02:40; Admin Dose 1 EA; Start 02/13/17 at 02:00 Levofloxacin/ Dextrose (Levaquin 500mg/ D5W 100 ml (Pmx)) 100 ml @ 100 mls/hr Q48H IVPB Last administered on 02/18/17 12:09; Admin Dose 100 MLS/HR; Start 02/14/17 at 13:00 Heparin Sodium (Porcine) (Heparin (5000 Units/0.5 ml)) 5,000 unit Q8 SC Last administered on 02/18/17 05:44; Admin Dose 5,000 UNIT; Start 02/13/17 at 14:00 Losartan Potassium (Cozaar) 50 mg BID PO Last administered on 02/18/17 08:33 ; Admin Dose 50 MG; Start 02/16/17 at 21:00 Hydralazine HCl (Apresoline) 10 mg Q4H PRN IV sbp>160 Last administered on 18:07; Admin Dose 10 MG; Start 02/16/17 at 13:00 Nifedipine (Procardia Xl) 90 mg DAILY PO Last administered on 02/18/17 08:33 ; Admin Dose 90 MG; Start 02/18/17 at 09:00 Insulin Glargine (Lantus) 45 unit QHS SC Last administered on 02/17/17 21:20 ; Admin Dose 45 UNIT; Start 02/17/17 at 21:00 JOSÉ GARCIA Feb 18, 2017 13:46
--- NOTE | 2017-02-18 14:30 | RADRPT ---
PROCEDURE: XR Chest. CLINICAL INDICATION: Shortness of breath TECHNIQUE: Single portable view of the chest was obtained COMPARISON: November 28, 2016 FINDINGS: The trachea is midline. The cardiac silhouette is enlarged and pulmonary vascularity are prominent. There is a right lower lobe opacification and small right pleural effusion. The left costophrenic an gle sharp. IMPRESSION: 1. Cardiomegaly and mild pulmonary congestion. Right lower lobe opacification, probably atelectasis and small right pleural effusion. No change since prior exam. RPTAT: AAPP Physician Jailene Date Time Electronically viewed and signed by Physician Jailene on 02/18/2017 14:30 YOLANDA/
== END 2017-02-18 16:26 | disposition home or self-care (01) | DRG 291 ==
LOC: TEL 02:12 → ICU 17:50 → TEL 02-14 14:59
PROVIDERS: ADMIT Family Medicine; ATTEND Family Medicine
PROC: 5A09357 Assistance with Respiratory Ventilation, Less than 24 Consecutive Hours, Continuous Positive Airway Pressure (ICD-10-PCS; 2017-02-12)
PROC: 0W993ZX Drainage of Right Pleural Cavity, Percutaneous Approach, Diagnostic (ICD-10-PCS; principal; 2017-02-13)
DX: I13.0 Hypertensive heart and chronic kidney disease with heart failure and stage 1 through stage 4 chronic kidney disease, or unspecified chronic kidney disease (principal); J96.01 Acute respiratory failure with hypoxia; J96.02 Acute respiratory failure with hypercapnia; E11.21 Type 2 diabetes mellitus with diabetic nephropathy; N17.9 Acute kidney failure, unspecified; I95.9 Hypotension, unspecified; E11.22 Type 2 diabetes mellitus with diabetic chronic kidney disease; N18.3 Chronic kidney disease, stage 3 (moderate); E11.42 Type 2 diabetes mellitus with diabetic polyneuropathy; I50.33 Acute on chronic diastolic (congestive) heart failure; J44.1 Chronic obstructive pulmonary disease with (acute) exacerbation; J44.0 Chronic obstructive pulmonary disease with (acute) lower respiratory infection; D64.9 Anemia, unspecified; F17.210 Nicotine dependence, cigarettes, uncomplicated; Z79.4 Long term (current) use of insulin; Z79.82 Long term (current) use of aspirin; E78.5 Hyperlipidemia, unspecified; J20.9 Acute bronchitis, unspecified; D63.8 Anemia in other chronic diseases classified elsewhere
CPT/HCPCS: 36600; 71010; 71020; 76942; 80048; 80053; 80061; 82550; 82553; 82803; 82945; 82962; 83036; 83615; 83735; 84100; 84157; 84439; 84443; 84484; 85025; 85610; 85730; 87070; 87081; 87102; 87116; 88104; 88305; 89051; 93005; 93306; 94640; 94660; 94664; J1940; J0360; J1644; J1815; J1956; J2270; J2920; J7040; J7512

== ENCOUNTER 2017-03-29 13:31 | Inpatient (IN) | payer BC ==
[~2017-03-29] VITALS: Ht 167.6 cm; Wt 88.6 kg
[~2017-03-29 13:31] MED LIST changes: +LOSA50TA2 PO; -METF500T PO; -METO-335 PO; -NIFE60TA7 PO; +NIFE90TA PO
[2017-03-29 16:32] VITALS: PULSE 83
[2017-03-29 17:34] VITALS: Ht 167.6 cm; Wt 88.6 kg
[2017-03-29] MEDS ORDERED: TAMS0.4C2 PO (18:29)
[2017-03-29] MEDS ORDERED: LOSA100T7 PO (18:29)
[2017-03-29] MEDS ORDERED: GABA100C14 PO (18:29)
[2017-03-29] MEDS ORDERED: DOCU-144 PO (18:29)
[2017-03-29] MEDS ORDERED: POTA20TA96 PO (18:29)
[2017-03-29] MEDS ORDERED: GLUCOSE GEL 15 GRAM TUBE PO PRN ×2 (18:30)
[2017-03-29] MEDS ORDERED: GLUCOSE GEL 15 GRAM TUBE BUCCAL PRN (18:30)
[2017-03-29] MEDS ORDERED: GLUCAGON 1 MG INJ IM PRN (18:30)
[2017-03-29] MEDS ORDERED: DEXTROSE 50% 50 ML SYRINGE IV PRN ×2 (18:30)
[2017-03-29 18:48] VITALS: BP 142/77; PULSE 85; RESP 20
[2017-03-29] MEDS: FUROSEMIDE 40 MG INJ IV SCH (18:50)
[2017-03-29] MEDS ORDERED: DOCUSATE SODIUM 100 MG CAP PO PRN (19:30)
[2017-03-29] MEDS ORDERED: ACETAMINOPHEN 325 MG TAB PO PRN (19:30)
[2017-03-29] MEDS ORDERED: LORAZEPAM 2 MG INJ IV PRN (19:30)
[2017-03-29] MEDS ORDERED: NACL 0.9% 3 ML SYG IV SCH (19:30)
[2017-03-29] MEDS ORDERED: ONDANSETRON 4 MG INJ IV PRN (19:30)
[2017-03-29] MEDS ORDERED: NA PHOSPHATE/BIPHOS 133 ML ENEMA PR PRN (19:30)
[2017-03-29] MEDS ORDERED: morphine 2 MG INJ IV PRN (19:30)
[2017-03-29] MEDS ORDERED: ALBUTEROL/IPRATROPIUM (NEB) 3 ML AMP HHN PRN (19:30)
[2017-03-29] MEDS ORDERED: NITROGLYCERIN (SL) 0.4 MG TAB SL PRN (19:30)
[2017-03-29] MEDS ORDERED: HYDROCODONE/APAP (5/325) TAB PO PRN (19:30)
[2017-03-29 20:00] VITALS: PULSE 84
[2017-03-29] MEDS: FERROUS SULFATE (EC) 325 MG TAB PO SCH (20:23)
[2017-03-29 20:24] VITALS: BP 166/84; RESP 16
[2017-03-29] MEDS: HEPARIN 5,000 UNIT/0.5 ML VIAL SC SCH (20:34)
[2017-03-29] MEDS: ALBUTEROL/IPRATROPIUM (NEB) 3 ML AMP HHN SCH (20:56)
[2017-03-29] MEDS ORDERED: INSULIN ASPART [NOVOLOG] 3 ML PEN SC SCH (21:00)
[2017-03-29] MEDS: METHYLPREDNISOLONE 125 MG INJ IV SCH (21:03)
[2017-03-29] MEDS: NICOTINE (21 MG/24 HR) PATCH TRANSDERM SCH (21:04)
[2017-03-29] MEDS: LEVOFLOXACIN 750 MG TABLET PO SCH (22:24)
[2017-03-30] VITALS (12 sets, daily range): BP systolic 103–175; BP diastolic 58–85; PULSE 83–93; RESP 16–21
[2017-03-30] MEDS: ALBUTEROL/IPRATROPIUM (NEB) 3 ML AMP HHN SCH ×4 (01:59→14:12)
[2017-03-30] MEDS: ACCU-CHEK XX SCH (02:05)
[2017-03-30] MEDS ORDERED: INSULIN ASPART [NOVOLOG] 3 ML PEN SC SCH (02:30)
[2017-03-30] MEDS: INSULIN GLARGINE [LANtus] 3 ML PEN SC SCH ×2 (02:46→20:23)
--- NOTE | 2017-03-30 03:30 | HP ---
DATE OF ADMISSION: 03/29/2017 This is a 62-year-old male transferred from outside hospital. CHIEF COMPLAINT: Chest pain and shortness of breath. HISTORY OF PRESENT ILLNESS: A 62-year-old male with past medical history of CHF, positive smoking history, type 2 diabetes, anemia of chronic disease, essential hypertension, and COPD who was transferred from an outside hospital today after presenting there earlier with shortness of breath. He says his symptoms also included chest tightness, difficulty sleeping at night. Symptoms have been going on for the last 2-3 days. He claims he has been taking his medicines at home, but when he came in he was also found with elevated systolic blood pressure in the 200 range and his sugars were also in the 200 range as well. He denied nausea or vomiting. No fevers or chills. No abdominal pain. No diarrhea or constipation. No upper or lower GI bleeding, but he has been having some headache but no loss of consciousness or dizziness. The patient was last here at our hospital from February 12-2016. At that time, he was treated for hypoxic and hypercapnic respiratory failure secondary to COPD. The patient was transferred over here due to insurance purposes. PAST MEDICAL HISTORY: As stated above. PAST SURGICAL HISTORY: None. ALLERGIES: NO KNOWN DRUG ALLERGIES. MEDICATIONS: Home medicines include: 1. Ventolin HFA, inhaled, 2 puffs q.4 h. p.r.n. 2. Lasix 20 mg p.o. daily. 3. Ferrous sulfate 325 mg b.i.d. 4. Motrin 600 mg daily. 5. Hydralazine 100 mg t.i.d. 6. Klor-Con 20 mEq daily. 7. Metformin 1000 mg b.i.d. 8. Flomax 0.4 mg daily 9. Losartan 100 mg daily. 10. Coreg 6.25 mg daily. 11. Clonidine 0.1 mg b.i.d. 12. Gabapentin 100 mg t.i.d. 13. Colace 100 mg daily. 14. Amlodipine 5 mg at bedtime. 15. Aspirin 81 mg daily. 16. Glimepiride 4 mg daily. 17. Toprol-XL 1 tablet daily. FAMILY HISTORY: Noncontributory. SOCIAL HISTORY: He smokes 1 pack a day, for the last 20 years. He claims he has not smoked for the last 1-1/2 months, however. Occasional alcohol use. No IV drug abuse. PHYSICAL EXAMINATION: VITAL SIGNS: Today, shows blood pressure initially 205/97, pulse of 94, respirations 28, temperature 97.9, saturating at 97 percent. GENERAL: The patient is sitting up in bed, answering questions appropriately, in no acute distress. HEENT: Pupils are equal, round, and react to light. Extraocular muscles are intact. NECK: Supple. No thyromegaly. LUNGS: Positive expiratory wheezes, mild, heard left greater than right. CARDIAC: S1, S2 heard. No murmurs, rubs or gallops. ABDOMEN: Soft, nontender, and nondistended. Normal bowel sounds. No rebound or guarding. MUSCULOSKELETAL: There is trace pitting edema in bilateral lower extremities to the mid calves. NEUROLOGIC: No focal deficits. DATA: Labs: CBC is completely normal. The basic metabolic panel is also normal. He had a chest x-ray done that shows moderate right pleural effusion, not significantly changed compared to prior exam, but no gross infiltrate noted in the right upper lung or in the left lung. ASSESSMENT AND PLAN: This is a 62-year-old male coming here with a past medical history of hypertension, congestive heart failure, chronic obstructive pulmonary disease, and a smoking history. He comes in with chest pain shortness of breath, as well as hypertensive urgency and uncontrolled diabetes. 1. Chest pain and shortness of breath. Admit the patient to telemetry floor. His troponin at the outside hospital was negative, BNP was 343. We will consider trending his troponins for now. He will be on aspirin, morphine, and oxygen, and nitroglycerin as needed. His last echocardiogram was performed in February of this year. At that time, it showed ejection fraction 65 percent, moderate concentric left ventricular hypertrophy, and normal left ventricular systolic function. The valves appeared to be normal. So, we will hold off on any repeat echocardiograms for now and check TSH, A1c, and lipid panel. He also has wheezing, so I will put him on breathing treatments every 4 hours around the clock and intravenous steroids for now. As far as his shortness of breath, likely secondary to congestive heart failure. We will put him on intravenous Lasix, keep the head of the bed greater than 30 degrees, and put him on low-dose beta james for now. 2. Type 2 diabetes. Follow up A1c. Put on sliding scale insulin. Hold his home oral diabetic medicines for now. 3. Essential hypertension. Again, he came in with hypertensive urgency. He will be on hydralazine as needed, as well as his beta james. We will also get Physical Therapy consult. 4. Smoking history. He is counseled on cessation. We will put him on a nicotine patch. 5. Anemia of chronic disease. We will monitor CBC daily. 6. Deep venous thrombosis prophylaxis. He will be on heparin, subcutaneous, for now. Dictated By: Geoff Barlow MD /carlos/tutu /Document#: [id number]
[2017-03-30 03:37] LABS: ABNORMAL IP MESSAGE 1; BASOPHILS % 0.3 % (0.0-2.0); HEMOGLOBIN 11.5 g/dl (14.0-18.0); LYMPHOCYTES # 0.4 10^3/ul (0.8-2.9); LYMPHOCYTES % 6.1 % (15.0-51.0); MEAN CORPUSCULAR HEMOGLOBIN 27.4 pg (29.0-33.0); MEAN CORPUSCULAR HGB CONC 31.1 g/dl (32.0-37.0); MEAN CORPUSCULAR VOLUME 88.1 fl (82.0-101.0); MONOCYTES % 0.3 % (0.0-11.0); NEUTROPHIL # 5.8 10^3/ul (1.6-7.5); PLATELET COUNT 261 10^3/UL (140-415); POSITIVE DIFF @See below; RED CELL DISTRIBUTION WIDTH 14.3 % (11.5-14.5); WHITE BLOOD COUNT 6.3 10^3/ul (4.8-10.8)
[2017-03-30 04:32] LABS: CALCIUM 9.3 mg/dl (8.4-10.2); CHOL/HDL RATIO 4.1 RATIO; CREATININE 1.12 mg/dl (0.61-1.24); MAGNESIUM 1.6 mg/dl (1.7-2.5); PHOSPHORUS 4.8 mg/dl (2.5-4.9); POTASSIUM 4.6 mmol/L (3.5-5.1)
[2017-03-30] MEDS ORDERED: INSULIN ASPART [NOVOLOG] 3 ML PEN SC ONE (05:00)
[2017-03-30] MEDS: METHYLPREDNISOLONE 125 MG INJ IV SCH (05:04)
[2017-03-30 05:50] LABS: THYROID STIMULATING HORMONE 0.727 MIU/L (0.465-4.680)
[2017-03-30] MEDS: ASPIRIN 81 MG TAB PO SCH (08:54)
[2017-03-30] MEDS: FERROUS SULFATE (EC) 325 MG TAB PO SCH ×2 (08:54→20:19)
[2017-03-30] MEDS: INSULIN ASPART [NOVOLOG] 3 ML PEN SC SCH ×3 (08:58→17:07)
[2017-03-30] MEDS: Insulin NOVOLOG SS MODERATE Algorithm (SS with meals and bedtime) SC SCH ×4 (08:59→20:24)
[2017-03-30] MEDS ORDERED: INFLUENZA VIRUS VACCINE 0.5 ML SYG IM* ONE (09:00)
[2017-03-30] MEDS ORDERED: LEVOFLOXACIN 750MG/D5W (PMX) 150 ML IVPB SCH (09:00)
[2017-03-30] MEDS: HEPARIN 5,000 UNIT/0.5 ML VIAL SC SCH ×2 (09:00→20:24)
[2017-03-30] MEDS: NICOTINE (21 MG/24 HR) PATCH TRANSDERM SCH (09:01)
[2017-03-30] MEDS: FUROSEMIDE 40 MG INJ IV SCH (09:01)
[2017-03-30] MEDS: MAGNESIUM HYDROXIDE 30ML CUP PO PRN (09:39)
[2017-03-30] MEDS ORDERED: FUROSEMIDE 40 MG INJ IV ONE (15:00)
[2017-03-30] MEDS ORDERED: MAGNESIUM SULFATE 3 GM in DEXTROSE 5% 100 ML IVPB ONE (15:30)
[2017-03-30] MEDS: NICOTINE (14 MG/24 HR) PATCH TRANSDERM SCH (16:19)
[2017-03-30] MEDS: LEVOFLOXACIN 750 MG TABLET PO SCH (21:08)
[2017-03-31] VITALS (13 sets, daily range): BP systolic 150–193; BP diastolic 79–100; PULSE 79–97; RESP 16–18
[2017-03-31] MEDS: ALBUTEROL/IPRATROPIUM (NEB) 3 ML AMP HHN SCH ×4 (00:03→23:59)
[2017-03-31] MEDS: ACCU-CHEK XX SCH (02:24)
[2017-03-31] MEDS: hydrALAzine 20 MG INJ IV PRN (04:58)
--- NOTE | 2017-03-31 08:09 | RADRPT ---
PROCEDURE: XR Chest 1 view. CLINICAL INDICATION: Shortness of breath. TECHNIQUE: Single view of the chest was obtained. COMPARISON: DR FRANCO 02/18/2017 FINDINGS: The heart is large. Calcified atherosclerosis is noted in the aorta. Central pulmonary vascular con gestion and interstitial prominence is seen in both lungs. Right perihilar and lower lung infiltrate s, combined with moderate to large pleural effusion identified. Patchy perihilar infiltrates in the left lower lobe are observed. Osseous structures are intact. IMPRESSION: Cardiomegaly with calcified atherosclerosis in the aorta. Central pulmonary vascular congestion and interstitial prominence in both lungs. Right perihilar and lower lung infiltrates, combined with moderate to large pleural effusion. Patchy perihilar infiltrates in the left lower lobe. RPTAT: AA .Manuel Ritchie MD, Date Time Electronically viewed and signed by .Manuel Ritchie MD, on 03/31/2017 08:09 .P/
[2017-03-31] MEDS: INSULIN ASPART [NOVOLOG] 3 ML PEN SC SCH ×4 (08:49→18:03)
[2017-03-31] MEDS: HEPARIN 5,000 UNIT/0.5 ML VIAL SC SCH ×2 (08:50→20:17)
[2017-03-31] MEDS: Insulin NOVOLOG SS MODERATE Algorithm (SS with meals and bedtime) SC SCH ×4 (08:50→20:21)
[2017-03-31] MEDS: THIAMINE 100 MG TAB PO SCH (08:51)
[2017-03-31] MEDS: ASPIRIN 81 MG TAB PO SCH (08:51)
[2017-03-31] MEDS: FERROUS SULFATE (EC) 325 MG TAB PO SCH ×2 (08:51→20:11)
[2017-03-31] MEDS: NICOTINE (14 MG/24 HR) PATCH TRANSDERM SCH (08:56)
[2017-03-31] MEDS ORDERED: FUROSEMIDE 40 MG INJ IV SCH (09:00)
[2017-03-31 09:14] LABS: BASOPHILS % 0.3 % (0.0-2.0); EOSINOPHILS % 0.2 % (0.0-7.0); HEMATOCRIT 35.7 % (42.0-52.0); HEMOGLOBIN 11.2 g/dl (14.0-18.0); LYMPHOCYTES # 2.2 10^3/ul (0.8-2.9); LYMPHOCYTES % 16.2 % (15.0-51.0); MEAN CORPUSCULAR HEMOGLOBIN 27.5 pg (29.0-33.0); MEAN CORPUSCULAR HGB CONC 31.4 g/dl (32.0-37.0); MEAN CORPUSCULAR VOLUME 87.5 fl (82.0-101.0); MEAN PLATELET VOLUME 10.5 fl (7.4-10.4); MONOCYTE # 1.1 10^3/ul (0.3-0.9); MONOCYTES % 7.7 % (0.0-11.0); NEUTROPHIL # 10.2 10^3/ul (1.6-7.5); NEUTROPHILS % 75.2 % (39.0-77.0); PLATELET COUNT 275 10^3/UL (140-415); RED BLOOD COUNT 4.08 10^6/ul (4.70-6.10); RED CELL DISTRIBUTION WIDTH 14.2 % (11.5-14.5); WHITE BLOOD COUNT 13.6 10^3/ul (4.8-10.8)
[2017-03-31 09:41] LABS: CALCIUM 9.5 mg/dl (8.4-10.2); CREATININE 1.17 mg/dl (0.61-1.24); POTASSIUM 3.7 mmol/L (3.5-5.1)
[2017-03-31 09:57] LABS: MAGNESIUM 2.1 mg/dl (1.7-2.5); PHOSPHORUS 4.4 mg/dl (2.5-4.9)
[2017-03-31 10:30] LABS: THYROID STIMULATING HORMONE 1.23 MIU/L (0.465-4.680)
--- NOTE | 2017-03-31 18:03 | PN ---
Date/Time of Note Date/Time of Note DATE: 03/31/17 TIME: 18:02 Assessment/Plan VTE Prophylaxis VTE Prophylaxis Intervention: heparin, LMWH Lines/Catheters IV [facility]ter [facility]from [facility]): [facility] Urinary Cath still in place: No Assessment/Plan Chief Complaint/Hosp Course S: Dyspnea edema may be 1 week. No bruno chest pain. Quit smoking recently. No fever chills recent travel. O: Vital signs stable PE No pallor JVD Reg Coarse breath sounds bilaterally no tachypnea Bs + nontender nondistended no RRG Mild edema left greater than right Assessment and plan 1. Dyspnea likely decompensated diastolic CHF. Stable continue diuretics blood pressure management. 2. Hypertensive urgency 3. Chronic COPD 4. Past tobacco 6. PAD? 7. Dyslipidemia likely metabolic syndrome Problems: Exam/Review of Systems Vital Signs Vitals Vital Signs Date Time Temp Pulse Resp B/P Pulse Ox O2 Delivery O2 Flow Rate FiO2 03/31/17 16:13 83 03/31/17 16:12 97.6 17 193/89 94 03/31/17 12:47 Nasal Cannula 21 03/31/17 08:47 3.0 Intake and Output 03/30/17 03/30/17 03/31/17 15:00 23:00 07:00 Intake Total 800 ml 600 ml Output Total 800 ml Balance 800 ml -200 ml Results Result Diagram: 03/31/17 0808 03/31/17 0808 Results 24 hrs Laboratory Tests Test 03/30/17 20:21 03/31/17 02:22 03/31/17 08:08 03/31/17 08:46 Bedside Glucose 217 200 214 White Blood Count 13.6 #H Red Blood Count 4.08 L Hemoglobin 11.2 L Hematocrit 35.7 L Mean Corpuscular Volume 87.5 Mean Corpuscular Hemoglobin 27.5 L Mean Corpuscular Hemoglobin Concent 31.4 L Red Cell Distribution Width 14.2 Platelet Count 275 Mean Platelet Volume 10.5 H Neutrophils % 75.2 Lymphocytes % 16.2 Monocytes % 7.7 Eosinophils % 0.2 Basophils % 0.3 Nucleated Red Blood Cells % 0.0 Neutrophils # 10.2 H Lymphocytes # 2.2 Monocytes # 1.1 H Eosinophils # 0.0 Basophils # 0.0 Nucleated Red Blood Cells # 0.0 Sodium Level 143 Potassium Level 3.7 Chloride Level 100 Carbon Dioxide Level 34 H Anion Gap 13 Blood Urea Nitrogen 42 #H Creatinine 1.17 Glucose Level 218 # Hemoglobin A1c 10.6 H Calcium Level 9.5 Phosphorus Level 4.4 Magnesium Level 2.1 Thyroid Stimulating Hormone (TSH) 1.230 Test 03/31/17 12:26 03/31/17 17:24 Bedside Glucose 202 219 Medications Medications Current Medications Hydralazine HCl (Apresoline) 10 mg Q6 PRN IV ELEVATED BLOOD PRESSURE Last administered on 03/31/17 04:58; Admin Dose 10 MG; Start 03/29/17 at 18:30 Diagnostic Test (Pha) (Accu-Chek) 1 ea 02 XX Last administered on 03/31/17 02 :24; Admin Dose 1 EA; Start 03/30/17 at 02:00 Miscellaneous Information 1 ea NOTE XX ; Start 03/29/17 at 18:30 Glucose (Glutose) 15 gm Q15M PRN PO DECREASED GLUCOSE; Start 03/29/17 at 18:30 Glucose (Glutose) 22.5 gm Q15M PRN PO DECREASED GLUCOSE; Start 03/29/17 at 18: 30 Dextrose (D50w Syringe) 25 ml Q15M PRN IV DECREASED GLUCOSE; Start 03/29/17 at 18:30 Dextrose (D50w Syringe) 50 ml Q15M PRN IV DECREASED GLUCOSE; Start 03/29/17 at 18:30 Glucagon (Glucagen) 1 mg Q15M PRN IM DECREASED GLUCOSE; Start 03/29/17 at 18: 30 Glucose (Glutose) 15 gm Q15M PRN BUCCAL DECREASED GLUCOSE; Start 03/29/17 at 18:30 Aspirin (Aspirin) 81 mg DAILY PO Last administered on 03/31/17 08:51; Admin Dose 81 MG; Start 03/30/17 at 09:00 Ferrous Sulfate (Ferrous Sulfate (Ec)) 325 mg BID PO Last administered on 03/31 08:51; Admin Dose 325 MG; Start 03/29/17 at 21:00 Ondansetron HCl (Zofran Inj) 4 mg Q6H PRN IV NAUSEA AND/OR VOMITING; Start at 19:30 Acetaminophen (Tylenol Tab) 650 mg Q6H PRN PO PAIN LEVEL 1-3 OR FEVER Last administered on 03/30/17 02:48; Admin Dose 650 MG; Start 03/29/17 at 19:30 Acetaminophen/ Hydrocodone Bitart ([place] (5/325)) 1 tab Q6H PRN PO MODERATE PAIN LEVEL 4-6; Start 03/29/17 at 19:30 Morphine Sulfate (morphine) 2 mg Q4H PRN IV SEVERE PAIN LEVEL 7-10; Start at 19:30 Docusate Sodium (Colace) 100 mg Q12H PRN PO CONSTIPATION Last administered on 03/30/17 17:04; Admin Dose 100 MG; Start 03/29/17 at 19:30; Stop 03/31/17 at 21:00 Magnesium Hydroxide (Milk Of Mag) 30 ml DAILY PRN PO CONSTIPATION Last administered on 03/30/17 09:39; Admin Dose 30 ML; Start 03/29/17 at 19:30 Sodium Biphosphate/ Sodium Phosphate (Fleet Enema) 133 ml DAILY PRN LA CONSTIPATION Last administered on 03/30/17 21:12; Admin Dose 133 ML; Start at 19:30 Heparin Sodium (Porcine) (Heparin (5000 Units/0.5 ml)) 5,000 unit Q12 SC Last administered on 03/31/17 08:50; Admin Dose 5,000 UNIT; Start 03/29/17 at 21: 00 Lorazepam (Ativan) 0.5 mg Q6H PRN IV ANXIETY; Start 03/29/17 at 19:30 Nitroglycerin (Nitroglycerin (Sl Tab) 0.4 Mg) 1 tab Q5M PRN SL ANGINA; Start 03/29/17 at 19:30 Levofloxacin (Levaquin) 750 mg Q24H PO Last administered on 03/30/17 21:08; Admin Dose 750 MG; Start 03/29/17 at 22:00 Nicotine (Nicoderm 14 Mg/ 24hr) 1 patch DAILY TRANSDERM Last administered on 08:56; Admin Dose 1 PATCH; Start 03/30/17 at 15:30 Thiamine HCl (Vitamin B1) 100 mg DAILY PO Last administered on 03/31/17 08:51 ; Admin Dose 100 MG; Start 03/31/17 at 09:00 Carvedilol (Coreg) 12 mg BID PO ; Start 03/31/17 at 21:00; Status UNV Docusate Sodium (Colace) 200 mg HS PO ; Start 03/31/17 at 21:00 Furosemide (Lasix) 40 mg TID IV ; Start 03/31/17 at 18:00 Insulin Glargine (Lantus) 24 unit HS SC ; Start 03/31/17 at 21:00 Prednisone (Prednisone) 60 mg DAILY PO ; Start 03/31/17 at 18:00; Status UNV Gabapentin (Neurontin) 100 mg TID PO ; Start 03/31/17 at 21:00; Status UNV Losartan Potassium (Cozaar) 100 mg DAILY PO ; Start 04/01/17 at 09:00; Status UNV Nifedipine (Procardia Xl) 90 mg DAILY PO ; Start 03/31/17 at 18:00; Status UNV Salmeterol Xinafoate/ Fluticasone (Advair 250/50 Diskus) 1 inh BID INH ; Start 03/31/17 at 21:00; Status UNV Tamsulosin HCl (Flomax) 0.4 mg HS PO ; Start 03/31/17 at 21:00; Status UNV TENISHA MENDEZ MD Mar 31, 2017 18:03
[2017-03-31] MEDS: predniSONE 20 MG TAB PO SCH (18:10)
[2017-03-31] MEDS: FUROSEMIDE 40 MG INJ IV SCH ×2 (18:11→20:12)
[2017-03-31] MEDS: TAMSULOSIN (SR) 0.4 MG CAP PO SCH (20:10)
[2017-03-31] MEDS: DOCUSATE SODIUM 100 MG CAP PO SCH (20:10)
[2017-03-31] MEDS: GABAPENTIN 100 MG CAP PO SCH (20:11)
[2017-03-31] MEDS: SALMETEROL/FLUTICASONE 250/50 INHA INH SCH (20:12)
[2017-03-31] MEDS: NIFEdipine (XL) 90 MG TAB PO SCH (20:12)
[2017-03-31] MEDS ORDERED: INSULIN GLARGINE [LANtus] 3 ML PEN SC SCH (21:00)
[2017-03-31] MEDS: LEVOFLOXACIN 750 MG TABLET PO SCH (21:31)
[2017-04-01] VITALS (13 sets, daily range): BP systolic 85–131; BP diastolic 50–90; PULSE 73–90; RESP 17–20
[2017-04-01] MEDS ORDERED: SOD CHLORIDE 0.9% 250 ML IV ONE (00:30)
[2017-04-01] MEDS: ACCU-CHEK XX SCH (01:26)
[2017-04-01] MEDS ORDERED: INSULIN ASPART [NOVOLOG] 3 ML PEN SC ONE ×2 (01:30→06:00)
--- NOTE | 2017-04-01 02:11 | RADRPT ---
PROCEDURE: Ultrasound examination of bilateral lower extremities veins with Doppler. CLINICAL INDICATION: Leg pain and swelling. TECHNIQUE: Multiple sonographic images of bilateral lower extremity venous systems were performed with houser scale and color Doppler. COMPARISON: None. FINDINGS: Bilateral common femoral, superficial femoral and popliteal veins demonstrate normal color flow, wav eforms, compression and response to augmentation. There is no evidence of deep venous thrombosis. IMPRESSION: No evidence of deep venous thrombosis within bilateral lower extremities. .Alok Rudolph MD, MD Date Time Electronically viewed and signed by .Alok Rudolph MD, MD on 04/01/2017 02:10 .T/
--- NOTE | 2017-04-01 03:18 | RADRPT ---
PROCEDURE: US Lower extremity arterial. CLINICAL INDICATION: Rule out peripheral arterial disease/arterial insufficiency, leg pain and swe lling TECHNIQUE: Multiple sonographic images of the bilateral lower extremity arteries were obtained uti lizing grayscale, color-flow and doppler imaging. The images were reviewed on a PACS workstation. COMPARISON: None. FINDINGS: Atherosclerotic plaque is seen and bilateral lower extremities. Velocities and waveforms were obtained as described below. RIGHT LEG: Right common femoral artery: 123.1 cm/s; triphasic waveforms Right proximal superficial femoral artery: 129.6 cm/s; triphasic waveforms Right mid superficial femoral artery: 112.4 cm/s; triphasic waveforms Right distal superficial femoral artery: 117.9 cm/s; triphasic waveforms Right popliteal artery: 95.8 cm/s; triphasic waveforms Right posterior tibial artery: 110.1 cm/s; triphasic waveforms Right dorsalis pedis artery: 106.9 cm/s; monophasic waveforms LEFT LEG: Left common femoral artery: 120.7 cm/s; triphasic waveforms Left proximal superficial femoral artery: 122.5 cm/s; triphasic waveforms Left mid superficial femoral artery: 153.0 cm/s; triphasic waveforms Left distal superficial femoral artery: 90.5 cm/s; triphasic waveforms Left popliteal artery: 83.4 cm/s; triphasic waveforms Left posterior tibial artery: 114 cm/s; triphasic waveforms Left dorsalis pedis artery: 125.7 cm/s; monophasic waveforms IMPRESSION: Monophasic flow in bilateral dorsalis pedis arteries. No evidence of hemodynamically significant angelika nosis seen. RPTAT: HJES .Duy Franklin MD, MD Date Time Electronically viewed and signed by .Duy Franklin MD, MD on 04/01/2017 03:18 .S/
[2017-04-01] MEDS: ALBUTEROL/IPRATROPIUM (NEB) 3 ML AMP HHN SCH ×2 (07:58→15:46)
[2017-04-01] MEDS: ASPIRIN 81 MG TAB PO SCH (08:53)
[2017-04-01] MEDS: FERROUS SULFATE (EC) 325 MG TAB PO SCH ×2 (08:53→21:47)
[2017-04-01] MEDS: SALMETEROL/FLUTICASONE 250/50 INHA INH SCH ×2 (08:53→21:46)
[2017-04-01] MEDS: FUROSEMIDE 40 MG INJ IV SCH ×2 (08:53→12:36)
[2017-04-01] MEDS: GABAPENTIN 100 MG CAP PO SCH ×3 (08:53→21:46)
[2017-04-01] MEDS: predniSONE 20 MG TAB PO SCH (08:54)
[2017-04-01] MEDS: NIFEdipine (XL) 90 MG TAB PO SCH (08:54)
[2017-04-01] MEDS: INSULIN ASPART [NOVOLOG] 3 ML PEN SC SCH ×3 (08:56→17:37)
[2017-04-01] MEDS: Insulin NOVOLOG SS MODERATE Algorithm (SS with meals and bedtime) SC SCH ×4 (08:56→21:58)
[2017-04-01] MEDS: HEPARIN 5,000 UNIT/0.5 ML VIAL SC SCH (08:57)
[2017-04-01] MEDS: THIAMINE 100 MG TAB PO SCH (08:58)
[2017-04-01] MEDS: NICOTINE (14 MG/24 HR) PATCH TRANSDERM SCH (08:58)
[2017-04-01] MEDS ORDERED: LOSARTAN 50 MG TAB PO SCH (09:00)
[2017-04-01] MEDS: MAGNESIUM HYDROXIDE 30ML CUP PO PRN (09:11)
[2017-04-01 09:40] LABS: BASOPHILS % 0.1 % (0.0-2.0); HEMOGLOBIN 10.9 g/dl (14.0-18.0); LYMPHOCYTES # 0.8 10^3/ul (0.8-2.9); LYMPHOCYTES % 7.9 % (15.0-51.0); MEAN CORPUSCULAR HEMOGLOBIN 27.7 pg (29.0-33.0); MEAN CORPUSCULAR HGB CONC 32.1 g/dl (32.0-37.0); MEAN CORPUSCULAR VOLUME 86.5 fl (82.0-101.0); MEAN PLATELET VOLUME 10.4 fl (7.4-10.4); MONOCYTE # 0.5 10^3/ul (0.3-0.9); MONOCYTES % 5.5 % (0.0-11.0); NEUTROPHIL # 8.4 10^3/ul (1.6-7.5); PLATELET COUNT 266 10^3/UL (140-415); RED BLOOD COUNT 3.93 10^6/ul (4.70-6.10); RED CELL DISTRIBUTION WIDTH 14.2 % (11.5-14.5); WHITE BLOOD COUNT 9.8 10^3/ul (4.8-10.8)
--- NOTE | 2017-04-01 10:00 | RADRPT ---
PROCEDURE: XR Chest. CLINICAL INDICATION: Shortness of breath. TECHNIQUE: Single frontal view. COMPARISON: 03/31/2017. FINDINGS: Pulmonary edema is unchanged. There is a large right pleural effusion and atelectasis throughout the right mid and lower lung zones, unchanged. There is mild left basilar atelectasis. There is no left pleural effusion. The heart is enlarged. There is calcification in the aorta consistent with atherosclerosis. There is no pneumothorax. IMPRESSION: 1. Unchanged pulmonary edema and large right pleural effusion. 2. Atelectasis throughout the right mid and lower lung zones, unchanged. 3. Mild left basilar atelectasis. 4. Atherosclerosis and cardiomegaly. RPTAT: QQ .Kayden Cervantes MD, MD Date Time Electronically viewed and signed by .Kayden Cervantes MD, MD on 04/01/2017 09:59 .R/
[2017-04-01 10:05] LABS: INR 1.05; PROTIME 13.7 Sec (12.2-14.2); PT RATIO 1.1
[2017-04-01 10:07] LABS: ALBUMIN 3.7 g/dl (3.3-4.9); ALBUMIN/GLOBULIN RATIO 1.08; BILIRUBIN,INDIRECT 0.2 mg/dl (0-1.1); BILIRUBIN,TOTAL 0.2 mg/dl (0.2-1.3); CREATININE 1.36 mg/dl (0.61-1.24); MAGNESIUM 2.2 mg/dl (1.7-2.5); TOTAL PROTEIN 7.1 g/dl (6.1-8.1)
[2017-04-01] MEDS: DOCUSATE SODIUM 100 MG CAP PO SCH (21:46)
[2017-04-01] MEDS: LEVOFLOXACIN 750 MG TABLET PO SCH (21:46)
[2017-04-01] MEDS: TAMSULOSIN (SR) 0.4 MG CAP PO SCH (21:47)
[2017-04-01] MEDS: INSULIN GLARGINE [LANtus] 3 ML PEN SC SCH (21:59)
[2017-04-02] VITALS (12 sets, daily range): BP systolic 100–152; BP diastolic 56–83; PULSE 89–97; RESP 18–21
[2017-04-02] MEDS: ALBUTEROL/IPRATROPIUM (NEB) 3 ML AMP HHN SCH ×3 (00:11→16:58)
[2017-04-02] MEDS: ACCU-CHEK XX SCH (02:06)
[2017-04-02] MEDS ORDERED: INSULIN ASPART [NOVOLOG] 3 ML PEN SC ONE (02:30)
[2017-04-02] MEDS: NICOTINE (14 MG/24 HR) PATCH TRANSDERM SCH (08:48)
[2017-04-02] MEDS: NIFEdipine (XL) 90 MG TAB PO SCH (08:49)
[2017-04-02] MEDS: LOSARTAN 50 MG TAB PO SCH (08:49)
[2017-04-02] MEDS: FERROUS SULFATE (EC) 325 MG TAB PO SCH ×2 (08:49→21:18)
[2017-04-02] MEDS: ASPIRIN 81 MG TAB PO SCH (08:50)
[2017-04-02] MEDS: predniSONE 20 MG TAB PO SCH (08:50)
[2017-04-02] MEDS: GABAPENTIN 100 MG CAP PO SCH ×3 (08:50→21:19)
[2017-04-02 08:51] LABS: BASOPHILS % 0.2 % (0.0-2.0); EOSINOPHILS # 0.1 10^3/ul (0.0-0.5); EOSINOPHILS % 0.6 % (0.0-7.0); HEMATOCRIT 35.9 % (42.0-52.0); HEMOGLOBIN 11.2 g/dl (14.0-18.0); LYMPHOCYTES # 2.6 10^3/ul (0.8-2.9); LYMPHOCYTES % 20.9 % (15.0-51.0); MEAN CORPUSCULAR HEMOGLOBIN 27.7 pg (29.0-33.0); MEAN CORPUSCULAR HGB CONC 31.2 g/dl (32.0-37.0); MEAN CORPUSCULAR VOLUME 88.9 fl (82.0-101.0); MEAN PLATELET VOLUME 10.4 fl (7.4-10.4); MONOCYTE # 1.2 10^3/ul (0.3-0.9); MONOCYTES % 9.3 % (0.0-11.0); NEUTROPHIL # 8.5 10^3/ul (1.6-7.5); NEUTROPHILS % 68.6 % (39.0-77.0); PLATELET COUNT 274 10^3/UL (140-415); RED BLOOD COUNT 4.04 10^6/ul (4.70-6.10); RED CELL DISTRIBUTION WIDTH 14.4 % (11.5-14.5); WHITE BLOOD COUNT 12.4 10^3/ul (4.8-10.8)
[2017-04-02] MEDS: INSULIN ASPART [NOVOLOG] 3 ML PEN SC SCH ×3 (08:52→17:22)
[2017-04-02] MEDS: Insulin NOVOLOG SS MODERATE Algorithm (SS with meals and bedtime) SC SCH ×4 (08:55→21:23)
[2017-04-02 08:57] LABS: ALBUMIN 3.6 g/dl (3.3-4.9); ALBUMIN/GLOBULIN RATIO 1.09; BILIRUBIN,INDIRECT 0.2 mg/dl (0-1.1); BILIRUBIN,TOTAL 0.2 mg/dl (0.2-1.3); CALCIUM 9.1 mg/dl (8.4-10.2); CREATININE 1.31 mg/dl (0.61-1.24); MAGNESIUM 2.3 mg/dl (1.7-2.5); POTASSIUM 4.5 mmol/L (3.5-5.1); TOTAL PROTEIN 6.9 g/dl (6.1-8.1)
[2017-04-02] MEDS: THIAMINE 100 MG TAB PO SCH (09:00)
[2017-04-02 09:02] LABS: INR 1.05; PARTIAL THROMBOPLASTIN TIME 32.4 Sec (25.0-35.0); PROTIME 13.7 Sec (12.2-14.2); PT RATIO 1.1
[2017-04-02] MEDS: MAGNESIUM HYDROXIDE 30ML CUP PO PRN (09:20)
[2017-04-02] MEDS: SALMETEROL/FLUTICASONE 250/50 INHA INH SCH ×2 (09:20→21:20)
[2017-04-02] MEDS ORDERED: LIDOCAINE 1% (MPF) 5 ML VIAL ONE (09:47)
--- NOTE | 2017-04-02 10:03 | RADRPT ---
PROCEDURE: Chest x-ray CLINICAL INDICATION: Post thoracentesis TECHNIQUE: Chest single view COMPARISON: 04/01/2017 FINDINGS: There is status post right thoracentesis. No pneumothorax is seen. There is interval decrease of rig ht pleural effusion. A small effusion remains. Persistent right lower lung consolidation and volume loss is noted. There is stable moderate cardiomegaly and atherosclerotic aortic calcification. There is ongoing moderate degree CHF. Left costophrenic angle sharp. IMPRESSION: 1. Status post right thoracentesis. No pneumothorax seen. 2. A small to moderate right pleural effusion remains. 3. Associated right lower lung consolidation and volume loss. 4. Moderate cardiomegaly with ongoing moderate degree CHF RPTAT: HH .Luis Olea MD, MD Date Time Electronically viewed and signed by .Luis Olea MD, on 04/02/2017 10:03 .W/
--- NOTE | 2017-04-02 10:05 | RADRPT ---
PROCEDURE: US guided right thoracentesis. CLINICAL INDICATION: Shortness of breath. Right pleural effusion. TECHNIQUE: Prior to the procedure, informed consent was obtained. The risks, benefits, and alternatives were e xplained to the patient or the patient's family, including but not limited to bleeding, infection, p ain, visceral or vascular damage, shock, pneumothorax, chest tube placement, air embolism, and . The patient or the patient's family understood the risks and the alternatives and wished to proce ed with the study. Informed written consent was obtained. A procedural pause was performed. The patient's name, date of , and procedure to be performed were verified. Ultrasound of the right hemithorax was performed in the axial and sagittal planes. A right pleural e ffusion is noted. Utilizing ultrasound guidance, optimal location for entry to the pleural cavity wa s ascertained. The overlying skin was prepped and draped in the usual sterile fashion. Approximate ly 10 ml of 1% Xylocaine was injected locally for pain control. Using ultrasound guidance, a 5-Fren Yueh catheter was introduced into the right pleural space without difficulty. Fluid was aspirated . COMPARISON: Chest x-ray dated 04/01/2017. FINDINGS: Initial ultrasound demonstrates fluid in the right pleural space. Approximately 1.5 liters of serou s fluid was aspirated and sent to the laboratory. IMPRESSION: 1. Satisfactory ultrasound-guided right thoracentesis. RPTAT: QQ .Kayden Cervantes MD, Date Time Electronically viewed and signed by .Kayden Cervantes MD, on 04/02/2017 10:05 .R/
--- NOTE | 2017-04-02 10:12 | PN ---
Date/Time of Note Date/Time of Note DATE: 04/02/17 TIME: 10:11 Assessment/Plan VTE Prophylaxis VTE Prophylaxis Intervention: LMWH Lines/Catheters IV [facility] Saline Lock Urinary Cath still in place: No Assessment/Plan Chief Complaint/Hosp Course S: 06/01 dyspnea edema may be 1 week. No bruno chest pain. Quit smoking recently. No fever chills recent travel. : Status post thoracentesis. No distress. L. O: Vital signs stable PE No pallor JVD Reg mostly clear Bs + nontender nondistended no RRG Mild edema left greater than right Assessment and plan 1. Dyspnea likely decompensated diastolic CHF. Stable continue diuretics blood pressure management. 2. Hypertensive urgency 3. Chronic COPD 4. Past tobacco 6. PAD? 7. Dyslipidemia likely metabolic syndrome 8. Pleural effusion status post thoracentesis. Problems: Exam/Review of Systems Vital Signs Vitals Vital Signs Date Time Temp Pulse Resp B/P Pulse Ox O2 Delivery O2 Flow Rate FiO2 04/02/17 08:28 98.0 94 20 152/83 91 04/02/17 00:13 2.0 04/02/17 00:11 Nasal Cannula 21 Intake and Output 04/01/17 04/01/17 04/02/17 15:00 23:00 07:00 Intake Total 800 ml 800 ml Output Total 1100 ml Balance -300 ml 800 ml Results Result Diagram: 04/02/17 0751 04/02/17 0751 Results 24 hrs Laboratory Tests Test 04/01/17 12:34 04/01/17 17:30 04/01/17 21:49 04/02/17 02:11 Bedside Glucose 431 *H 221 H 272 H 290 H Test 04/02/17 07:51 04/02/17 08:47 White Blood Count 12.4 #H Red Blood Count 4.04 L Hemoglobin 11.2 L Hematocrit 35.9 L Mean Corpuscular Volume 88.9 Mean Corpuscular Hemoglobin 27.7 L Mean Corpuscular Hemoglobin Concent 31.2 L Red Cell Distribution Width 14.4 Platelet Count 274 Mean Platelet Volume 10.4 Neutrophils % 68.6 Lymphocytes % 20.9 Monocytes % 9.3 Eosinophils % 0.6 Basophils % 0.2 Nucleated Red Blood Cells % 0.0 Neutrophils # 8.5 H Lymphocytes # 2.6 Monocytes # 1.2 H Eosinophils # 0.1 Basophils # 0.0 Nucleated Red Blood Cells # 0.0 Prothrombin Time 13.7 Prothrombin Time Ratio 1.1 INR International Normalized Ratio 1.05 Activated Partial Thromboplast Time 32.4 Sodium Level 143 Potassium Level 4.5 Chloride Level 99 Carbon Dioxide Level 36 H Anion Gap 13 Blood Urea Nitrogen 55 H Creatinine 1.31 H Glucose Level 217 # Calcium Level 9.1 Phosphorus Level 4.0 Magnesium Level 2.3 Total Bilirubin 0.2 Direct Bilirubin 0.00 Indirect Bilirubin 0.2 Aspartate Amino Transf (AST/SGOT) 22 Alanine Aminotransferase (ALT/SGPT) 34 Alkaline Phosphatase 66 Total Protein 6.9 Albumin 3.6 Globulin 3.30 H Albumin/Globulin Ratio 1.09 Bedside Glucose 183 Medications Medications Current Medications Hydralazine HCl (Apresoline) 10 mg Q6 PRN IV ELEVATED BLOOD PRESSURE Last administered on 03/31/17 04:58; Admin Dose 10 MG; Start 03/29/17 at 18:30 Diagnostic Test (Pha) (Accu-Chek) 1 ea 02 XX Last administered on 04/02/17 02 :06; Admin Dose 1 EA; Start 03/30/17 at 02:00 Miscellaneous Information 1 ea NOTE XX ; Start 03/29/17 at 18:30 Glucose (Glutose) 15 gm Q15M PRN PO DECREASED GLUCOSE; Start 03/29/17 at 18:30 Glucose (Glutose) 22.5 gm Q15M PRN PO DECREASED GLUCOSE; Start 03/29/17 at 18: 30 Dextrose (D50w Syringe) 25 ml Q15M PRN IV DECREASED GLUCOSE; Start 03/29/17 at 18:30 Dextrose (D50w Syringe) 50 ml Q15M PRN IV DECREASED GLUCOSE; Start 03/29/17 at 18:30 Glucagon (Glucagen) 1 mg Q15M PRN IM DECREASED GLUCOSE; Start 03/29/17 at 18: 30 Glucose (Glutose) 15 gm Q15M PRN BUCCAL DECREASED GLUCOSE; Start 03/29/17 at 18:30 Aspirin (Aspirin) 81 mg DAILY PO Last administered on 04/02/17 08:50; Admin Dose 81 MG; Start 03/30/17 at 09:00 Ferrous Sulfate (Ferrous Sulfate (Ec)) 325 mg BID PO Last administered on 04/02 08:49; Admin Dose 325 MG; Start 03/29/17 at 21:00 Ondansetron HCl (Zofran Inj) 4 mg Q6H PRN IV NAUSEA AND/OR VOMITING; Start at 19:30 Acetaminophen (Tylenol Tab) 650 mg Q6H PRN PO PAIN LEVEL 1-3 OR FEVER Last administered on 03/30/17 02:48; Admin Dose 650 MG; Start 03/29/17 at 19:30 Acetaminophen/ Hydrocodone Bitart ([place] (5/325)) 1 tab Q6H PRN PO MODERATE PAIN LEVEL 4-6; Start 03/29/17 at 19:30 Morphine Sulfate (morphine) 2 mg Q4H PRN IV SEVERE PAIN LEVEL 7-10; Start at 19:30 Magnesium Hydroxide (Milk Of Mag) 30 ml DAILY PRN PO CONSTIPATION Last administered on 04/02/17 09:20; Admin Dose 30 ML; Start 03/29/17 at 19:30 Sodium Biphosphate/ Sodium Phosphate (Fleet Enema) 133 ml DAILY PRN [place] CONSTIPATION Last administered on 03/30/17 21:12; Admin Dose 133 ML; Start at 19:30 Lorazepam (Ativan) 0.5 mg Q6H PRN IV ANXIETY; Start 03/29/17 at 19:30 Nitroglycerin (Nitroglycerin (Sl Tab) 0.4 Mg) 1 tab Q5M PRN SL ANGINA; Start 03/29/17 at 19:30 Levofloxacin (Levaquin) 750 mg Q24H PO Last administered on 04/01/17 21:46; Admin Dose 750 MG; Start 03/29/17 at 22:00 Nicotine (Nicoderm 14 Mg/ 24hr) 1 patch DAILY TRANSDERM Last administered on 08:48; Admin Dose 1 PATCH; Start 03/30/17 at 15:30 Thiamine HCl (Vitamin B1) 100 mg DAILY PO Last administered on 03/31/17 08:51 ; Admin Dose 100 MG; Start 03/31/17 at 09:00 Docusate Sodium (Colace) 200 mg HS PO Last administered on 04/01/17 21:46; Admin Dose 200 MG; Start 03/31/17 at 21:00 Prednisone (Prednisone) 60 mg DAILY PO Last administered on 04/02/17 08:50; Admin Dose 60 MG; Start 03/31/17 at 18:00 Gabapentin (Neurontin) 100 mg TID PO Last administered on 04/02/17 08:50; Admin Dose 100 MG; Start 03/31/17 at 21:00 Nifedipine (Procardia Xl) 90 mg DAILY PO Last administered on 04/02/17 08:49 ; Admin Dose 90 MG; Start 03/31/17 at 18:00 Salmeterol Xinafoate/ Fluticasone (Advair 250/50 Diskus) 1 inh BID INH Last administered on 04/02/17 09:20; Admin Dose 1 INH; Start 03/31/17 at 21:00 Tamsulosin HCl (Flomax) 0.4 mg HS PO Last administered on 04/01/17 21:47; Admin Dose 0.4 MG; Start 03/31/17 at 21:00 Insulin Glargine (Lantus) 36 unit HS SC Last administered on 04/01/17 21:59; Admin Dose 36 UNIT; Start 04/01/17 at 21:00 Carvedilol (Coreg) 6.25 mg BID PO Last administered on 04/02/17 08:49; Admin Dose 6.25 MG; Start 04/01/17 at 21:00 Losartan Potassium (Cozaar) 50 mg DAILY PO Last administered on 04/02/17 08: 49; Admin Dose 50 MG; Start 04/02/17 at 09:00 TENISHA MENDEZ MD Apr 02, 2017 10:12
--- NOTE | 2017-04-02 12:28 | RADRPT ---
PROCEDURE: CT chest without contrast CLINICAL INDICATION: Dyspnea. Congestive heart failure. Hypertension. TECHNIQUE: CT scan of the chest without contrast was performed on a multidetector high-resolution C T scanner. Coronal and sagittal reformatted images were obtained from the axial source images. The exam CTDI by series is 16.50 mGy, and the total exam DLP is 632.76 mGy-cm. DICOM images are availab le. One or more of the following dose reduction techniques were used: Automated exposure control. Adjustment of the mA and/or kV according to patient size. Use of iterative reconstruction technique. COMPARISON: Portable chest radiograph 04/02/2017 at [address] 04/13/2016. Renal ultrasound 12/02/2016 FINDINGS: Patient motion artifacts on some of the images. No significant change in the too small to characterize bilateral thyroid gland very low attenuation findings, not optimally assessed on this study. The mid ascending aorta again measures 3.8 cm in diameter. Cardiac enlargement again seen. Moderate sized right pleural effusion and small left pleural effusion; these have decreased in volum e when compared to the prior chest CT, but the patient who is recently status post right thoracentes is. Slight increase in size of an upper right paraesophageal lymph node such that it is now at the upper limits of normal in size. Minimal increase in size of some of the other small mediastinal lymph nod es. Bilateral areas of atelectasis/consolidation, some of which have air bronchograms. Bilateral patchy ground-glass opacities. Bilateral slightly thickened interlobular septa. Narrowing of bilateral segm ental and subsegmental bronchi. Right kidney two tiny nonobstructing central stones. Bilateral kidney upper pole borderline dilation of the collecting systems versus peripelvic abnormalities such as cysts. Left kidney upper pole to o small to characterize slightly low attenuation finding probably is not significantly changed in si ze, and probably no significant change in size of the left kidney upper pole too small to characteri ze slightly low attenuation finding when compared to the prior chest CT. Spondylosis of the visualized spine. No significant change in mid thoracic spine vertebral bodies wi th mild anterior wedge deformities (of uncertain etiology). Probably no significant change in size o f the predominately fat attenuation finding in the left subscapularis muscle, probably a lipoma. No other significant interval changes seen, given the differences in the imaging techniques. IMPRESSION: 1. Moderate sized right pleural effusion and small left pleural effusion; these have decreased in v olume when compared to the prior chest CT, but the patient who is recently status post right thorace ntesis. 2. Slight increase in size of an upper right paraesophageal lymph node such that it is now at the u pper limits of normal in size. Minimal increase in size of some of the other small mediastinal lymph nodes. 3. Bilateral areas of atelectasis/consolidation, some of which have air bronchograms. Bilateral pat negro ground-glass opacities which could be secondary to edema and/or pneumonitis. Bilateral slightly thickened interlobular septa, possibly secondary to interstitial edema, but other etiologies are pos sible. Narrowing of bilateral segmental and subsegmental bronchi. Given the chronicity of these find ings, infiltrative disease is in the differential diagnosis. 4. Right kidney two tiny nonobstructing central stones. Bilateral kidney upper pole borderline dila tion of the collecting systems versus peripelvic abnormalities such as cysts. Left kidney upper johann e too small to characterize slightly low attenuation finding probably is not significantly changed i n size and probably no significant change in size of the left kidney upper pole too small to charact erize slightly low attenuation finding (not unequivocally a simple cyst). The prior kidney ultrasoun d revealed small bilateral kidney cysts, but it is not certain if all the findings on the CT scan co rrelate with the findings on the kidney ultrasound. RPTAT: TT Physician Darien Date Time Electronically viewed and signed by Physician Darien on 04/02/2017 12:28 VLAD/
[2017-04-02 17:32] LABS: FLUID LD 302 U/L; FLUID TOTAL PROTEIN 3.2 g/dl; FLUID TYPE PLEURAL FLUID
[2017-04-02] MEDS: DOCUSATE SODIUM 100 MG CAP PO SCH (21:18)
[2017-04-02] MEDS: LEVOFLOXACIN 750 MG TABLET PO SCH (21:19)
[2017-04-02] MEDS: TAMSULOSIN (SR) 0.4 MG CAP PO SCH (21:19)
[2017-04-02] MEDS: INSULIN GLARGINE [LANtus] 3 ML PEN SC SCH (21:26)
[2017-04-03] VITALS (12 sets, daily range): BP systolic 102–166; BP diastolic 55–98; PULSE 82–92; RESP 19–24
[2017-04-03] MEDS: ACCU-CHEK XX SCH (02:00)
[2017-04-03 06:47] LABS: BASOPHILS % 0.2 % (0.0-2.0); EOSINOPHILS # 0.1 10^3/ul (0.0-0.5); EOSINOPHILS % 0.9 % (0.0-7.0); HEMATOCRIT 35.3 % (42.0-52.0); HEMOGLOBIN 11.1 g/dl (14.0-18.0); LYMPHOCYTES # 2.8 10^3/ul (0.8-2.9); LYMPHOCYTES % 23.4 % (15.0-51.0); MEAN CORPUSCULAR HGB CONC 31.4 g/dl (32.0-37.0); MEAN CORPUSCULAR VOLUME 89.1 fl (82.0-101.0); MEAN PLATELET VOLUME 10.5 fl (7.4-10.4); MONOCYTE # 1.1 10^3/ul (0.3-0.9); MONOCYTES % 8.8 % (0.0-11.0); NEUTROPHIL # 7.9 10^3/ul (1.6-7.5); NEUTROPHILS % 65.9 % (39.0-77.0); PLATELET COUNT 271 10^3/UL (140-415); RED BLOOD COUNT 3.96 10^6/ul (4.70-6.10); RED CELL DISTRIBUTION WIDTH 14.7 % (11.5-14.5); WHITE BLOOD COUNT 12.1 10^3/ul (4.8-10.8)
[2017-04-03 07:16] LABS: MAGNESIUM 2.2 mg/dl (1.7-2.5); PHOSPHORUS 3.6 mg/dl (2.5-4.9)
[2017-04-03 07:19] LABS: CALCIUM 9.2 mg/dl (8.4-10.2); CREATININE 1.18 mg/dl (0.61-1.24); POTASSIUM 4.7 mmol/L (3.5-5.1)
[2017-04-03] MEDS: ALBUTEROL/IPRATROPIUM (NEB) 3 ML AMP HHN SCH ×3 (07:59→16:13)
[2017-04-03] MEDS: INSULIN ASPART [NOVOLOG] 3 ML PEN SC SCH ×3 (08:12→17:22)
[2017-04-03] MEDS: ASPIRIN 81 MG TAB PO SCH (08:14)
[2017-04-03] MEDS: SALMETEROL/FLUTICASONE 250/50 INHA INH SCH ×2 (08:14→23:36)
[2017-04-03] MEDS: Insulin NOVOLOG SS MODERATE Algorithm (SS with meals and bedtime) SC SCH ×4 (08:14→21:00)
[2017-04-03] MEDS: GABAPENTIN 100 MG CAP PO SCH ×3 (08:17→23:39)
[2017-04-03] MEDS: LOSARTAN 50 MG TAB PO SCH (08:17)
[2017-04-03] MEDS: FERROUS SULFATE (EC) 325 MG TAB PO SCH ×2 (08:17→23:37)
[2017-04-03] MEDS: NICOTINE (14 MG/24 HR) PATCH TRANSDERM SCH (08:18)
[2017-04-03] MEDS: predniSONE 20 MG TAB PO SCH (08:18)
[2017-04-03] MEDS: NIFEdipine (XL) 90 MG TAB PO SCH (08:18)
[2017-04-03] MEDS: THIAMINE 100 MG TAB PO SCH ×2 (08:30→12:16)
[2017-04-03] MEDS: MAGNESIUM HYDROXIDE 30ML CUP PO PRN (08:30)
--- NOTE | 2017-04-03 16:57 | PN ---
Date/Time of Note Date/Time of Note DATE: 04/03/17 TIME: 16:55 Assessment/Plan VTE Prophylaxis VTE Prophylaxis Intervention: LMWH Lines/Catheters IV [facility] Type (from [facility] Saline Lock Urinary Cath still in place: No Assessment/Plan Chief Complaint/Hosp Course S: 06/01 dyspnea edema may be 1 week. No bruno chest pain. Quit smoking recently. No fever chills recent travel. : Status post thoracentesis. No distress. 04/03: Mildly better. No fever or chills. Some wheezing. O: Vital signs stable PE No pallor/ JVD Reg mostly clear Bs + nt nd no RRG edema improved A/P 1. Dyspnea likely decompensated diastolic CHF. Stable cont diuretics/ bp management. 2. Hypertensive urgency 3. Chronic COPD 4. Past tobacco 6. PAD? Arterial ultrasound unremarkable. 7. Dyslipidemia likely metabolic syndrome 8. Pl Effusion sp thoracentesis. First specimen appears unremarkable. Will repeat thoracentesis tomorrow. 9. Community-acquired bilateral pneumonia. Stable finish Levaquin. Problems: Exam/Review of Systems Vital Signs Vitals Vital Signs Date Time Temp Pulse Resp B/P Pulse Ox O2 Delivery O2 Flow Rate FiO2 04/03/17 16:38 98.0 92 20 137/83 91 04/03/17 16:13 Nasal Cannula 2.0 04/03/17 00:48 21 Results Result Diagram: 04/03/17 0606 04/03/17 0606 Results 24 hrs Laboratory Tests Test 04/02/17 17:17 04/02/17 21:16 04/03/17 06:06 04/03/17 06:55 Bedside Glucose 125 251 H 214 White Blood Count 12.1 H Red Blood Count 3.96 L Hemoglobin 11.1 L Hematocrit 35.3 L Mean Corpuscular Volume 89.1 Mean Corpuscular Hemoglobin 28.0 L Mean Corpuscular Hemoglobin Concent 31.4 L Red Cell Distribution Width 14.7 H Platelet Count 271 Mean Platelet Volume 10.5 H Neutrophils % 65.9 Lymphocytes % 23.4 Monocytes % 8.8 Eosinophils % 0.9 Basophils % 0.2 Nucleated Red Blood Cells % 0.0 Neutrophils # 7.9 H Lymphocytes # 2.8 Monocytes # 1.1 H Eosinophils # 0.1 Basophils # 0.0 Nucleated Red Blood Cells # 0.0 Sodium Level 143 Potassium Level 4.7 Chloride Level 103 Carbon Dioxide Level 37 H Anion Gap 8 Blood Urea Nitrogen 50 H Creatinine 1.18 Glucose Level 219 Calcium Level 9.2 Phosphorus Level 3.6 Magnesium Level 2.2 Test 04/03/17 08:11 04/03/17 12:15 Bedside Glucose 198 96 Medications Medications Current Medications Hydralazine HCl (Apresoline) 10 mg Q6 PRN IV ELEVATED BLOOD PRESSURE Last administered on 03/31/17 04:58; Admin Dose 10 MG; Start 03/29/17 at 18:30 Diagnostic Test (Pha) (Accu-Chek) 1 ea 02 XX Last administered on 04/02/17 02 :06; Admin Dose 1 EA; Start 03/30/17 at 02:00 Miscellaneous Information 1 ea NOTE XX ; Start 03/29/17 at 18:30 Glucose (Glutose) 15 gm Q15M PRN PO DECREASED GLUCOSE; Start 03/29/17 at 18:30 Glucose (Glutose) 22.5 gm Q15M PRN PO DECREASED GLUCOSE; Start 03/29/17 at 18: 30 Dextrose (D50w Syringe) 25 ml Q15M PRN IV DECREASED GLUCOSE; Start 03/29/17 at 18:30 Dextrose (D50w Syringe) 50 ml Q15M PRN IV DECREASED GLUCOSE; Start 03/29/17 at 18:30 Glucagon (Glucagen) 1 mg Q15M PRN IM DECREASED GLUCOSE; Start 03/29/17 at 18: 30 Glucose (Glutose) 15 gm Q15M PRN BUCCAL DECREASED GLUCOSE; Start 03/29/17 at 18:30 Aspirin (Aspirin) 81 mg DAILY PO Last administered on 04/03/17 08:14; Admin Dose 81 MG; Start 03/30/17 at 09:00 Ferrous Sulfate (Ferrous Sulfate (Ec)) 325 mg BID PO Last administered on 04/03 08:17; Admin Dose 325 MG; Start 03/29/17 at 21:00 Ondansetron HCl (Zofran Inj) 4 mg Q6H PRN IV NAUSEA AND/OR VOMITING; Start at 19:30 Acetaminophen (Tylenol Tab) 650 mg Q6H PRN PO PAIN LEVEL 1-3 OR FEVER Last administered on 03/30/17 02:48; Admin Dose 650 MG; Start 03/29/17 at 19:30 Acetaminophen/ Hydrocodone Bitart ([place] (5/325)) 1 tab Q6H PRN PO MODERATE PAIN LEVEL 4-6; Start 03/29/17 at 19:30 Morphine Sulfate (morphine) 2 mg Q4H PRN IV SEVERE PAIN LEVEL 7-10; Start at 19:30 Magnesium Hydroxide (Milk Of Mag) 30 ml DAILY PRN PO CONSTIPATION Last administered on 04/03/17 08:30; Admin Dose 30 ML; Start 03/29/17 at 19:30 Sodium Biphosphate/ Sodium Phosphate (Fleet Enema) 133 ml DAILY PRN [place] CONSTIPATION Last administered on 03/30/17 21:12; Admin Dose 133 ML; Start at 19:30 Lorazepam (Ativan) 0.5 mg Q6H PRN IV ANXIETY; Start 03/29/17 at 19:30 Nitroglycerin (Nitroglycerin (Sl Tab) 0.4 Mg) 1 tab Q5M PRN SL ANGINA; Start 03/29/17 at 19:30 Levofloxacin (Levaquin) 750 mg Q24H PO Last administered on 04/02/17 21:19; Admin Dose 750 MG; Start 03/29/17 at 22:00 Nicotine (Nicoderm 14 Mg/ 24hr) 1 patch DAILY TRANSDERM Last administered on 08:18; Admin Dose 1 PATCH; Start 03/30/17 at 15:30 Thiamine HCl (Vitamin B1) 100 mg DAILY PO Last administered on 04/03/17 12:16 ; Admin Dose 100 MG; Start 03/31/17 at 09:00 Docusate Sodium (Colace) 200 mg HS PO Last administered on 04/02/17 21:18; Admin Dose 200 MG; Start 03/31/17 at 21:00 Prednisone (Prednisone) 60 mg DAILY PO Last administered on 04/03/17 08:18; Admin Dose 60 MG; Start 03/31/17 at 18:00 Gabapentin (Neurontin) 100 mg TID PO Last administered on 04/03/17 12:16; Admin Dose 100 MG; Start 03/31/17 at 21:00 Nifedipine (Procardia Xl) 90 mg DAILY PO Last administered on 04/03/17 08:18 ; Admin Dose 90 MG; Start 03/31/17 at 18:00 Salmeterol Xinafoate/ Fluticasone (Advair 250/50 Diskus) 1 inh BID INH Last administered on 04/03/17 08:14; Admin Dose 1 INH; Start 03/31/17 at 21:00 Tamsulosin HCl (Flomax) 0.4 mg HS PO Last administered on 04/02/17 21:19; Admin Dose 0.4 MG; Start 03/31/17 at 21:00 Insulin Glargine (Lantus) 36 unit HS SC Last administered on 04/02/17 21:26; Admin Dose 36 UNIT; Start 04/01/17 at 21:00 Carvedilol (Coreg) 6.25 mg BID PO Last administered on 04/03/17 08:16; Admin Dose 6.25 MG; Start 04/01/17 at 21:00 Losartan Potassium (Cozaar) 50 mg DAILY PO Last administered on 04/03/17 08: 17; Admin Dose 50 MG; Start 04/02/17 at 09:00 TENISHA MENDEZ MD Apr 03, 2017 16:57
[2017-04-03] MEDS ORDERED: ENOXAPARIN 40 MG/0.4 ML SYG SC ONE (17:00)
[2017-04-03] MEDS: DOCUSATE SODIUM 100 MG CAP PO SCH (23:37)
[2017-04-03] MEDS: TAMSULOSIN (SR) 0.4 MG CAP PO SCH (23:38)
[2017-04-03] MEDS: LEVOFLOXACIN 750 MG TABLET PO SCH (23:39)
[2017-04-04] VITALS (13 sets, daily range): BP systolic 124–178; BP diastolic 65–92; PULSE 81–97; RESP 20–85
[2017-04-04] MEDS: hydrALAzine 20 MG INJ IV PRN (00:42)
[2017-04-04] MEDS: INSULIN GLARGINE [LANtus] 3 ML PEN SC SCH (00:51)
[2017-04-04] MEDS: ACCU-CHEK XX SCH (01:17)
[2017-04-04 06:22] LABS: BASOPHILS % 0.3 % (0.0-2.0); EOSINOPHILS # 0.1 10^3/ul (0.0-0.5); EOSINOPHILS % 0.7 % (0.0-7.0); HEMATOCRIT 34.7 % (42.0-52.0); HEMOGLOBIN 10.9 g/dl (14.0-18.0); LYMPHOCYTES # 2.9 10^3/ul (0.8-2.9); LYMPHOCYTES % 25.6 % (15.0-51.0); MEAN CORPUSCULAR HEMOGLOBIN 27.7 pg (29.0-33.0); MEAN CORPUSCULAR HGB CONC 31.4 g/dl (32.0-37.0); MEAN CORPUSCULAR VOLUME 88.3 fl (82.0-101.0); MEAN PLATELET VOLUME 10.3 fl (7.4-10.4); NEUTROPHIL # 7.1 10^3/ul (1.6-7.5); NEUTROPHILS % 63.6 % (39.0-77.0); PLATELET COUNT 260 10^3/UL (140-415); RED BLOOD COUNT 3.93 10^6/ul (4.70-6.10); RED CELL DISTRIBUTION WIDTH 14.5 % (11.5-14.5); WHITE BLOOD COUNT 11.1 10^3/ul (4.8-10.8)
[2017-04-04 06:47] LABS: CREATININE 1.05 mg/dl (0.61-1.24); POTASSIUM 4.3 mmol/L (3.5-5.1)
[2017-04-04 06:51] LABS: MAGNESIUM 2.1 mg/dl (1.7-2.5); PHOSPHORUS 4.1 mg/dl (2.5-4.9)
[2017-04-04 06:54] LABS: INR 1.11; PROTIME 14.3 Sec (12.2-14.2); PT RATIO 1.1
[2017-04-04] MEDS: Insulin NOVOLOG SS MODERATE Algorithm (SS with meals and bedtime) SC SCH ×3 (08:00→17:30)
[2017-04-04] MEDS: INSULIN ASPART [NOVOLOG] 3 ML PEN SC SCH ×3 (08:39→17:30)
[2017-04-04] MEDS: SALMETEROL/FLUTICASONE 250/50 INHA INH SCH (08:39)
[2017-04-04] MEDS: LOSARTAN 50 MG TAB PO SCH (08:40)
[2017-04-04] MEDS: ASPIRIN 81 MG TAB PO SCH (08:40)
[2017-04-04] MEDS: predniSONE 20 MG TAB PO SCH (08:41)
[2017-04-04] MEDS: NIFEdipine (XL) 90 MG TAB PO SCH (08:41)
[2017-04-04] MEDS: THIAMINE 100 MG TAB PO SCH (08:41)
[2017-04-04] MEDS: FERROUS SULFATE (EC) 325 MG TAB PO SCH (08:41)
[2017-04-04] MEDS: GABAPENTIN 100 MG CAP PO SCH ×2 (08:41→12:02)
[2017-04-04] MEDS: NICOTINE (14 MG/24 HR) PATCH TRANSDERM SCH (08:42)
[2017-04-04] MEDS: MAGNESIUM HYDROXIDE 30ML CUP PO PRN (08:42)
--- NOTE | 2017-04-04 12:42 | PDOCDIS ---
Discharge Instructions DIAGNOSIS Discharge Diagnosis Pl Effusion CONDITION Patient Condition: Stable HOME CARE INSTRUCTIONS: Special Diet: CARB CONTROLLED ACTIVITY: Activity Restrictions: Slowly Increase Activity Do not Drive FOLLOW UP/APPOINTMENTS Follow-up Plan Dr Valdovinos or PUL 1wk PCP 1wk TENISHA MENDEZ MD Apr 04, 2017 12:42
[2017-04-04] MEDS ORDERED: THIA100T56 PO (12:48)
[2017-04-04] MEDS ORDERED: Nicotine (14 Mg/24 Hr) TRANSDERM (12:48)
[2017-04-04] MEDS ORDERED: LEVO750T25 PO (12:48)
[2017-04-04] MEDS ORDERED: PRED20TA PO (12:48)
--- NOTE | 2017-04-04 12:52 | DS ---
Date/Time of Note Date/Time of Note DATE: 04/04/17 TIME: 12:49 Discharge Summary Admission/Discharge Info Admit Date/Time Mar 29, 2017 at 15:57 Discharge Date/Time Discharge Diagnosis Pl Effusion Patient Condition: Stable Procedures Thoracentesis CT chest Hx of Present Illness 62-year-old gentleman with chest pain shortness of breath. Probable edema. Chronic's history of smoking. Ruled out for ACS via enzymes EKG symptoms. Hospital Course Records: 62-year-old gentleman admitted with chest pain shortness of breath edema. Ruled out for ACS via enzymes EKG symptoms. Chest x-ray noting pleural effusion. Patient has had thoracentesis even in the past. Do not have those old records. We restarted the mid/evaluation for pleural effusion. Patient underwent thoracentesis. Next CT chest. There is bilateral but right greater than left effusion. Appears transudate at this time. Culture cytology are pending. Gram stain negative. Stable and fit for discharge home. Referral placed to pulmonary and cardiology. S: 06/01 dyspnea edema may be 1 week. No bruno chest pain. Quit smoking recently. No fever chills recent travel. 04/02: Status post thoracentesis. No distress. 04/03: Mildly better. No fever or chills. Some wheezing. 04/04: Less edema appears more stable. O: Vital signs stable PE No pallor/ JVD Reg mostly clear Bs + nt nd no RRG edema improved A/P 1. Dyspnea likely decompensated diastolic CHF. Stable cont diuretics/ bp management. 2. Hypertensive urgency 3. Chronic COPD 4. Past tobacco 6. PAD? Arterial ultrasound unremarkable. 7. Dyslipidemia likely metabolic syndrome 8. Pl Effusion sp thoracentesis. First specimen appears unremarkable. Will repeat thoracentesis today there is enough fluid. Referral to cardio & pulmonary placed. 9. Community-acquired bilateral pneumonia. Stable finish Levaquin. Home Meds Active Scripts Thiamine* (Vitamin B-1*) 100 Mg Tablet, 100 MG PO DAILY for 30 Days, #30 TAB Prov:TENISHA MENDEZ MD 04/04/17 Prednisone* (Prednisone*) 20 Mg Tab, 60 MG PO DAILY for 2 Days, #2 TAB 2 days supply; no refills Prov:TENISHA MENDEZ MD 04/04/17 [Nicotine (14 Mg/24 Hr)] 1 PATCH PATCH No Conflict Check, 1 PATCH TRANSDERM DAILY for 10 Days, #20 Prov:TENISHA MENDEZ MD 04/04/17 Levofloxacin* (Levaquin*) 750 Mg Tablet, 750 MG PO Q24H for 5 Days, #5 TAB Prov:TENISHA MENDEZ MD 04/04/17 Nifedipine (Procardia Xl) 90 Mg Tab.er.24, 90 MG PO DAILY, #30 TAB Prov:BRIANDA TYLER 02/18/17 Salmeterol Xinaf/Fluticasone* (Advair*) 250-50 Diskus Inhaler, 1 INH INH BID, # 1 INH Prov:BRIANDA TYLER 02/18/17 Insulin Aspart* (Novolog Insulin Pen*) 100 Unit/Ml Soln, 16 UNIT SC WITH MEALS for 30 Days Prov:BRIANDA TYLER 02/18/17 Insulin Glargine* (Lantus*) 100 Unit/Ml Soln, 48 UNIT SC QHS for 30 Days Prov:BRIANDA TYLER 02/18/17 Furosemide* (Lasix*) 20 Mg Tablet, 20 MG PO BID, #60 TAB Prov:BRIANDA TYLER 02/18/17 Ferrous Sulfate* (Ferrous Sulfate*) 325 Mg Tabec, 325 MG PO BID for 30 Days, # 60 TAB Prov:BRIANDA TYLER 02/18/17 Albuterol Sulfate* (Proair HFA*) 8.5 Gm Hfa.aer.ad, 2 PUFF INH Q6 for SHORTNESS OF BREATH for 14 Days, #1 INHALER Prov:BRIANDA TYLER 02/18/17 Gabapentin* (Gabapentin*) 300 Mg Capsule, 300 MG PO TID for 30 Days, CAP Prov:NILES AYALA [employer] INSPECTOR 02/12/16 Aspirin (Aspirin) 81 Mg Chew, 81 MG PO DAILY for 30 Days, TAB Prov:NILES AYALA [employer] INSPECTOR 06/20/15 Reported Medications Gabapentin* (Gabapentin*) 100 Mg Capsule, 100 MG PO TID, #90 CAP 03/29/17 Docusate Sodium* (Colace*) 100 Mg Capsule, 100 MG PO DAILY, #30 CAP 03/29/17 Tamsulosin Hcl* (Tamsulosin Hcl*) 0.4 Mg Cap.er.24h, 0.4 MG PO HS, CAP 03/29/17 Losartan Potassium* (Losartan Potassium*) 100 Mg Tablet, 100 MG PO DAILY, TAB 03/29/17 Discontinued Reported Medications Potassium Chloride* (Potassium Chloride*) 20 Meq Tablet.er, 20 MEQ PO DAILY, TAB.SA 03/29/17 Discontinued Scripts Losartan Potassium* (Cozaar*) 50 Mg Tablet, 50 MG PO BID, #60 TAB Prov:BRIANDA TYLER 02/18/17 Follow-up Plan Dr Valdovinos or PUL 1wk PCP 1wk Primary Care Provider Nevaeh Nicole Time spent on discharge: > 30 minutes Pending Labs Laboratory Tests Test 04/03/17 17:17 04/03/17 21:27 04/04/17 00:48 04/04/17 05:54 Bedside Glucose 152mg/dL (70-220) 162mg/dL (70-220) 249mg/dL (70-220) White Blood Count 11.110^3/ul (4.8-10.8) Red Blood Count 3.9310^6/ul (4.70-6.10) Hemoglobin 10.9g/dl (14.0-18.0) Hematocrit 34.7% (42.0-52.0) Mean Corpuscular Volume 88.3fl (82.0-101.0) Mean Corpuscular Hemoglobin 27.7pg (29.0-33.0) Mean Corpuscular Hemoglobin Concent 31.4g/dl (32.0-37.0) Red Cell Distribution Width 14.5% (11.5-14.5) Platelet Count 76819^3/UL (140-415) Mean Platelet Volume 10.3fl (7.4-10.4) Neutrophils % 63.6% (39.0-77.0) Lymphocytes % 25.6% (15.0-51.0) Monocytes % 9.0% (0.0-11.0) Eosinophils % 0.7% (0.0-7.0) Basophils % 0.3% (0.0-2.0) Nucleated Red Blood Cells % 0.0/100WBC (0.0-0.0) Neutrophils # 7.110^3/ul (1.6-7.5) Lymphocytes # 2.910^3/ul (0.8-2.9) Monocytes # 1.010^3/ul (0.3-0.9) Eosinophils # 0.110^3/ul (0.0-0.5) Basophils # 0.010^3/ul (0.0-0.1) Nucleated Red Blood Cells # 0.010^3/ul (0.0-0.0) Prothrombin Time 14.3Sec (12.2-14.2) Prothrombin Time Ratio 1.1 INR International Normalized Ratio 1.11 Sodium Level 142mmol/L (135-144) Potassium Level 4.3mmol/L (3.5-5.1) Chloride Level 99mmol/L (97-110) Carbon Dioxide Level 34mmol/L (21-31) Anion Gap 13 (8-16) Blood Urea Nitrogen 39mg/dl (7-20) Creatinine 1.05mg/dl (0.61-1.24) Glucose Level 221mg/dl (70-220) Calcium Level 9.0mg/dl (8.4-10.2) Phosphorus Level 4.1mg/dl (2.5-4.9) Magnesium Level 2.1mg/dl (1.7-2.5) Test 04/04/17 08:25 04/04/17 11:42 Bedside Glucose 136mg/dL (70-220) 104mg/dL (70-220) TENISHA MENDEZ MD Apr 04, 2017 12:52
--- NOTE | 2017-04-04 13:04 | RADRPT ---
PROCEDURE: US right chest. CLINICAL INDICATION: Pleural effusion TECHNIQUE: Multiple real-time images were acquired of the patient's chest utilizing a high resolut ion transducer. COMPARISON: Recent x-ray FINDINGS: There is a mild to moderate right pleural effusion. IMPRESSION: Mild to moderate right pleural effusion. RPTAT: AA .Bebeto Maravilla MD, MD Date Time Electronically viewed and signed by .Bebeto Maravilla MD, on 04/04/2017 13:04 .S/
[2017-04-04] MEDS ORDERED: LIDOCAINE 1% (MPF) 5 ML VIAL ONE (16:45)
--- NOTE | 2017-04-04 17:04 | RADRPT ---
PROCEDURE: XR Chest. CLINICAL INDICATION: Status post right thoracentesis . TECHNIQUE: Single frontal chest x-ray. COMPARISON: 04/02/2017 FINDINGS: There is near complete evacuation of right-sided pleural effusion following thoracentesis without ev idence of pneumothorax. . Cardiomegaly with decrease hilar vascular congestion is noted.. Residual right basilar atelectasis is present. The left lung is clear.. The osseous structures are intact. IMPRESSION: Near complete evacuation of right pleural effusion following thoracentesis without evidence of pneum othorax. Residual right basilar atelectasis. Cardiomegaly with decrease hilar congestion.. RPTAT: QQ .Duy Chapman MD, Date Time Electronically viewed and signed by .Duy Chapman MD, on 04/04/2017 17:03 .L/
--- NOTE | 2017-04-04 17:07 | RADRPT ---
PROCEDURE: US guided thoracentesis CLINICAL INDICATION: Right pleural effusion. TECHNIQUE: The patient was informed of the benefits and risks of the procedure and signed consent was obtained. Risks include bleeding, infection, pneumothorax. The chest was sterilely prepped a nd draped and local anesthesia with 1% lidocaine was administered. The patient was placed in uprigh t sitting position on bed. Under ultrasound guidance, a 19-gauge Yueh multi side-hole centesis needl e and sheath was advanced into the pleural fluid. Approximately 1600 cc of clear yellow pleural flu id was aspirated by vacuum. The patient tolerated procedure well and there were no complications. P atient left department in stable condition. Fluid specimen was given to nurse for testing to be ord ered by referring clinician. Postprocedural chest x-ray to follow. COMPARISON: None FINDINGS: Initial localizing sonogram of the chest shows the pleural effusion. IMPRESSION: US-guided right thoracentesis yielding 1600 cc of clear yellow pleural fluid given to nurse for test ing to be ordered by referring clinician. RPTAT: QQ .Duy Chapman MD, Date Time Electronically viewed and signed by .Duy Chapman MD, on 04/04/2017 17:06 .L/
== END 2017-04-04 22:30 | disposition home or self-care (01) | DRG 291 ==
LOC: MS4 15:57
PROVIDERS: ADMIT Internal Medicine; ATTEND Internal Medicine
PROC: 0W993ZZ Drainage of Right Pleural Cavity, Percutaneous Approach (ICD-10-PCS; principal; 2017-04-02)
PROC: 0W993ZZ Drainage of Right Pleural Cavity, Percutaneous Approach (ICD-10-PCS; 2017-04-04)
DX: I11.0 Hypertensive heart disease with heart failure (principal); J18.9 Pneumonia, unspecified organism; J90 Pleural effusion, not elsewhere classified; J44.9 Chronic obstructive pulmonary disease, unspecified; E11.9 Type 2 diabetes mellitus without complications; D63.8 Anemia in other chronic diseases classified elsewhere; I50.33 Acute on chronic diastolic (congestive) heart failure; E78.5 Hyperlipidemia, unspecified; Z72.0 Tobacco use; I16.0 Hypertensive urgency
CPT/HCPCS: 32555; 71010; 71250; 76604; 80048; 80053; 80061; 82306; 82962; 83036; 83615; 83735; 84100; 84157; 84439; 84443; 84484; 85025; 85610; 85730; 87070; 87102; 87116; 90686; 93922; 93970; 94640; 94664; 97163; J0360; J1644; J1650; J1815; J1940; J2930; J3475; J7040; J7512

== ENCOUNTER 2017-04-15 23:12 | Inpatient (IN) | payer BC ==
[~2017-04-15] VITALS: Ht 160 cm; Wt 94.4 kg
[~2017-04-15 23:12] MED LIST changes: +DOCU-144 PO; +GABA100C14 PO; +LEVO750T25 PO; +LOSA100T7 PO; -LOSA50TA2 PO; +Nicotine (14 Mg/24 Hr) TRANSDERM; +PRED20TA PO; +TAMS0.4C2 PO; +THIA100T56 PO
[2017-04-16] VITALS (13 sets, daily range): BP systolic 144–167; BP diastolic 72–88; PULSE 87–92; RESP 16–20; Ht 160 cm; Wt 94.4 kg
[2017-04-16] MEDS ORDERED: ALBUTEROL/IPRATROPIUM (NEB) 3 ML AMP HHN PRN (00:30)
[2017-04-16] MEDS ORDERED: NITROGLYCERIN (SL) 0.4 MG TAB SL PRN (00:30)
[2017-04-16] MEDS ORDERED: LORAZEPAM 0.5 MG TAB PO PRN (00:30)
[2017-04-16] MEDS ORDERED: ONDANSETRON 4 MG INJ IV PRN (00:30)
[2017-04-16] MEDS ORDERED: NACL 0.9% 3 ML SYG IV SCH (00:30)
[2017-04-16] MEDS ORDERED: GLUCOSE GEL 15 GRAM TUBE PO PRN ×2 (00:40)
[2017-04-16] MEDS ORDERED: GLUCOSE GEL 15 GRAM TUBE BUCCAL PRN (00:40)
[2017-04-16] MEDS ORDERED: DEXTROSE 50% 50 ML SYRINGE IV PRN ×2 (00:40)
[2017-04-16] MEDS ORDERED: GLUCAGON 1 MG INJ IM PRN (00:40)
[2017-04-16 00:58] LABS: ABNORMAL IP MESSAGE 1; BASOPHILS % 0.1 % (0.0-2.0); HEMATOCRIT 34.4 % (42.0-52.0); HEMOGLOBIN 10.9 g/dl (14.0-18.0); LYMPHOCYTES # 0.4 10^3/ul (0.8-2.9); LYMPHOCYTES % 4.5 % (15.0-51.0); MEAN CORPUSCULAR HEMOGLOBIN 27.6 pg (29.0-33.0); MEAN CORPUSCULAR HGB CONC 31.7 g/dl (32.0-37.0); MEAN CORPUSCULAR VOLUME 87.1 fl (82.0-101.0); MEAN PLATELET VOLUME 10.5 fl (7.4-10.4); MONOCYTES % 0.2 % (0.0-11.0); NEUTROPHILS % 94.7 % (39.0-77.0); PLATELET COUNT 286 10^3/UL (140-415); POSITIVE DIFF @See below; RED BLOOD COUNT 3.95 10^6/ul (4.70-6.10); RED CELL DISTRIBUTION WIDTH 14.1 % (11.5-14.5); WHITE BLOOD COUNT 9.5 10^3/ul (4.8-10.8)
[2017-04-16 01:18] LABS: ALBUMIN 3.9 g/dl (3.3-4.9); ALBUMIN/GLOBULIN RATIO 1.02; BILIRUBIN,INDIRECT 0.5 mg/dl (0-1.1); BILIRUBIN,TOTAL 0.5 mg/dl (0.2-1.3); CALCIUM 9.7 mg/dl (8.4-10.2); CREATININE 1.05 mg/dl (0.61-1.24); MAGNESIUM 1.6 mg/dl (1.7-2.5); POTASSIUM 4.2 mmol/L (3.5-5.1); TOTAL PROTEIN 7.7 g/dl (6.1-8.1)
[2017-04-16] MEDS ORDERED: **FLU VACCINE PREVIOUSLY DISPENSED XX PRN (01:30)
[2017-04-16] MEDS: METHYLPREDNISOLONE 125 MG INJ IV SCH ×3 (01:51→20:42)
[2017-04-16] MEDS ORDERED: INSULIN GLARGINE [LANtus] 3 ML PEN SC ONE (02:00)
[2017-04-16] MEDS ORDERED: ACCU-CHEK XX SCH (02:00)
[2017-04-16] MEDS ORDERED: INSULIN ASPART [NOVOLOG] 3 ML PEN SC ONE (02:00)
[2017-04-16] MEDS: SALMETEROL/FLUTICASONE 250/50 INHA INH SCH ×3 (02:59→20:42)
[2017-04-16] MEDS ORDERED: INSULIN ASPART [NOVOLOG] 3 ML PEN SC SCH (07:55)
[2017-04-16] MEDS: INSULIN ASPART [NOVOLOG] 3 ML PEN SC SCH ×6 (08:08→20:43)
[2017-04-16] MEDS: ASPIRIN 81 MG TAB PO SCH (08:53)
[2017-04-16] MEDS: LOSARTAN 50 MG TAB PO SCH (08:54)
[2017-04-16] MEDS: FERROUS SULFATE (EC) 325 MG TAB PO SCH ×2 (08:54→20:42)
[2017-04-16] MEDS: FUROSEMIDE 40 MG INJ IV SCH (08:54)
[2017-04-16] MEDS: THIAMINE 100 MG TAB PO SCH (08:54)
[2017-04-16] MEDS: GABAPENTIN 300 MG CAP PO SCH ×3 (08:54→20:42)
--- NOTE | 2017-04-16 09:34 | HP ---
Date/Time of Note Date/Time of Note DATE: 04/16/17 TIME: 09:16 Assessment/Plan VTE Prophylaxis VTE Prophylaxis Intervention: SCD's Lines/Catheters IV [facility]from [facility] Saline Lock Assessment/Plan Assessment/Plan ASSESSMENT 62-year-old male with a history of hypertension, COPD, type I diabetes, BPH, dyslipidemia, diastolic dysfunction, pleural effusion requiring thoracentesis presents with a progressively worsening shortness of breath, most likely a combination of recurrent pleural effusion, COPD and diastolic dysfunction PLAN -Will obtain chest x-ray to evaluate for recurrence of pleural effusion. Will consider additional imaging with chest CT. ultrasound-guided thoracentesis as needed -Supplemental oxygen, bronchodilators, steroid and a diuresis -Continue insulin -Continue Flomax for BPH -Weight reduction advised HPI/ROS Admit Date/Time Admit Date/Time Apr 15, 2017 at 23:51 Hx of Present Illness This is a 62-year-old obese male with a history of hypertension, COPD, type I diabetes, BPH, dyslipidemia, diastolic dysfunction, pleural effusion requiring thoracentesis. Patient initially presented at outside hospital complaining of shortness of breath. He was transferred to [facility] because of insurance reasons. Patient was admitted here 2 weeks ago for shortness of breath and was treated for COPD and CHF exacerbations. He underwent thoracentesis with removal of 1600 cc of fluid. He said after he was discharged, he was initially feeling well but starting about 3 or 4 days ago, he noted progressively worsening shortness of breath. Symptom has gotten worse to the point where walking a few steps was causing dyspnea. He denied urinary symptoms or decreased urine output. He said he has been compliant with his medications including Lasix and Flomax. PMH/Family/Social Past Surgical History Past Surgical Hx: no surgical history Social History Smoking Status: Former smoker Exam/Review of Systems Vital Signs Vitals Vital Signs Date Time Temp Pulse Resp B/P Pulse Ox O2 Delivery O2 Flow Rate FiO2 04/16/17 08:11 90 04/16/17 07:32 98.0 20 167/87 95 04/16/17 00:45 Nasal Cannula 2.0 Intake and Output 04/15/17 04/15/17 04/16/17 14:59 22:59 06:59 Intake Total 200 ml Output Total 400 ml Balance -200 ml Exam Constitutional: other (Patient sitting up on the bed. Appears slightly short of breath) Head: atraumatic, normocephalic Eyes: EOMI, PERRL Respiratory: diminished breath sounds Cardiovascular: nl pulses, regular rate and rhythm Gastrointestinal: non-tender, soft Extremities: normal pulses Labs Result Diagram: 04/16/174 04/16/174 Medications Medications Current Medications Lorazepam (Ativan) 0.5 mg Q8H PRN PO ANXIETY; Start 04/16/17 at 00:30 Ondansetron HCl (Zofran Inj) 4 mg Q6H PRN IV NAUSEA AND/OR VOMITING; Start 04/16/17 at 00:30 Furosemide (Lasix) 40 mg DAILY IV Last administered on 04/16/17 08:54; Admin Dose 40 MG; Start 04/16/17 at 09:00 Nitroglycerin (Nitroglycerin (Sl Tab) 0.4 Mg) 1 tab Q5M PRN SL CHEST PAIN; Start 04/16/17 at 00:30 Acetaminophen (Tylenol Tab) 650 mg Q6H PRN PO PAIN LEVEL 1-3 OR FEVER; Start 04/16/17 at 00:30 Morphine Sulfate (morphine) 2 mg Q4H PRN IV PAIN LEVEL 7-10; Start 04/16/17 at 00:30 Aspirin (Aspirin) 81 mg DAILY PO Last administered on 04/16/17 08:53; Admin Dose 81 MG; Start 04/16/17 at 09:00 Ferrous Sulfate (Ferrous Sulfate (Ec)) 325 mg BID PO Last administered on 08:54; Admin Dose 325 MG; Start 04/16/17 at 09:00 Gabapentin (Neurontin) 300 mg TID PO Last administered on 04/16/17 08:54; Admin Dose 300 MG; Start 04/16/17 at 09:00 Insulin Glargine (Lantus) 48 unit QHS SC ; Start 04/16/17 at 21:00 Losartan Potassium (Cozaar) 100 mg DAILY PO Last administered on 04/16/17 08: 54; Admin Dose 100 MG; Start 04/16/17 at 09:00 Nifedipine (Procardia Xl) 90 mg DAILY PO ; Start 04/16/17 at 09:00 Salmeterol Xinafoate/ Fluticasone (Advair 250/50 Diskus) 1 inh BID INH Last administered on 04/16/17 08:53; Admin Dose 1 INH; Start 04/16/17 at 00:30 Tamsulosin HCl (Flomax) 0.4 mg HS PO ; Start 04/16/17 at 21:00 Thiamine HCl (Vitamin B1) 100 mg DAILY PO Last administered on 04/16/17 08:54 ; Admin Dose 100 MG; Start 04/16/17 at 09:00 Nicotine (Nicoderm 14 Mg/ 24hr) 1 patch DAILY TRANSDERM ; Start 04/16/17 at 09: 00 Methylprednisolone Sodium Succinate (Solu-Medrol) 60 mg Q12 IV Last administered on 04/16/17 08:53; Admin Dose 60 MG; Start 04/16/17 at 00:30 Hydralazine HCl (Apresoline) 10 mg Q4H PRN IV SBP > 160; Start 04/16/17 at 00: 30 Diagnostic Test (Pha) (Accu-Chek) 1 ea 02 XX Last administered on 04/16/17 01: 51; Admin Dose 1 EA; Start 04/16/17 at 02:00 Miscellaneous Information 1 ea NOTE XX ; Start 04/16/17 at 00:40 Glucose (Glutose) 15 gm Q15M PRN PO DECREASED GLUCOSE; Start 04/16/17 at 00:40 Glucose (Glutose) 22.5 gm Q15M PRN PO DECREASED GLUCOSE; Start 04/16/17 at 00: 40 Dextrose (D50w Syringe) 25 ml Q15M PRN IV DECREASED GLUCOSE; Start 04/16/17 at 00:40 Dextrose (D50w Syringe) 50 ml Q15M PRN IV DECREASED GLUCOSE; Start 04/16/17 at 00:40 Glucagon (Glucagen) 1 mg Q15M PRN IM DECREASED GLUCOSE; Start 04/16/17 at 00:40 Glucose (Glutose) 15 gm Q15M PRN BUCCAL DECREASED GLUCOSE; Start 04/16/17 at 00 :40 Miscellaneous Information (Flu Vaccine Previously Dispensed) FLU VACCINE PREVIOU... NOTE PRN XX NOTE; Start 04/16/17 at 01:30 APOLLO MARTIN MD Apr 16, 2017 09:26
[2017-04-16] MEDS: NIFEdipine (XL) 90 MG TAB PO SCH (09:37)
[2017-04-16] MEDS: NICOTINE (14 MG/24 HR) PATCH TRANSDERM SCH (09:37)
[2017-04-16] MEDS: MAGNESIUM HYDROXIDE 30ML CUP PO PRN (13:32)
--- NOTE | 2017-04-16 13:57 | RADRPT ---
PROCEDURE: XR Chest. CLINICAL INDICATION: Shortness of breath. TECHNIQUE: Single frontal view. COMPARISON: 04/04/2017. FINDINGS: There is a moderate right pleural effusion, larger than seen previously. There is associated right b asilar atelectasis. There is interstitial disease bilaterally consistent with pulmonary edema. There is no left pleural effusion. The heart is enlarged. Calcification is present in the aorta consistent with atherosclerosis. There is no pneumothorax. IMPRESSION: 1. Moderate right pleural effusion, larger than seen previously. 2. Worse appearance of the right lung base. 3. Pulmonary edema. 4. Cardiomegaly and atherosclerosis. RPTAT: QQ .Kayden Cervantes MD, MD Date Time Electronically viewed and signed by .Kayden Cervantes MD, MD on 04/16/2017 13:57 .R/
[2017-04-16] MEDS: ACETAMINOPHEN 325 MG TAB PO PRN (16:15)
[2017-04-16] MEDS: TAMSULOSIN (SR) 0.4 MG CAP PO SCH (20:42)
[2017-04-16] MEDS: INSULIN GLARGINE [LANtus] 3 ML PEN SC SCH (20:57)
[2017-04-16] MEDS: ALBUTEROL/IPRATROPIUM (NEB) 3 ML AMP HHN SCH (21:00)
[2017-04-17] VITALS (13 sets, daily range): BP systolic 127–162; BP diastolic 61–79; PULSE 82–100; RESP 17–21
[2017-04-17] MEDS: ALBUTEROL/IPRATROPIUM (NEB) 3 ML AMP HHN SCH ×3 (00:24→10:08)
[2017-04-17] MEDS: ACCU-CHEK XX SCH (02:00)
[2017-04-17 06:57] LABS: BASOPHILS % 0.1 % (0.0-2.0); HEMATOCRIT 32.1 % (42.0-52.0); HEMOGLOBIN 10.2 g/dl (14.0-18.0); LYMPHOCYTES # 0.7 10^3/ul (0.8-2.9); LYMPHOCYTES % 4.2 % (15.0-51.0); MEAN CORPUSCULAR HEMOGLOBIN 27.8 pg (29.0-33.0); MEAN CORPUSCULAR HGB CONC 31.8 g/dl (32.0-37.0); MEAN CORPUSCULAR VOLUME 87.5 fl (82.0-101.0); MEAN PLATELET VOLUME 10.8 fl (7.4-10.4); MONOCYTE # 0.2 10^3/ul (0.3-0.9); MONOCYTES % 1.4 % (0.0-11.0); NEUTROPHIL # 14.6 10^3/ul (1.6-7.5); NEUTROPHILS % 93.7 % (39.0-77.0); PLATELET COUNT 281 10^3/UL (140-415); RED BLOOD COUNT 3.67 10^6/ul (4.70-6.10); RED CELL DISTRIBUTION WIDTH 14.2 % (11.5-14.5); WHITE BLOOD COUNT 15.6 10^3/ul (4.8-10.8)
[2017-04-17 07:38] LABS: CALCIUM 8.8 mg/dl (8.4-10.2); CREATININE 1.16 mg/dl (0.61-1.24); MAGNESIUM 1.9 mg/dl (1.7-2.5); PHOSPHORUS 4.1 mg/dl (2.5-4.9); POTASSIUM 4.8 mmol/L (3.5-5.1)
[2017-04-17] MEDS: METHYLPREDNISOLONE 125 MG INJ IV SCH ×2 (08:27→20:43)
[2017-04-17] MEDS: THIAMINE 100 MG TAB PO SCH (08:27)
[2017-04-17] MEDS: GABAPENTIN 300 MG CAP PO SCH ×3 (08:27→20:43)
[2017-04-17] MEDS: ASPIRIN 81 MG TAB PO SCH (08:27)
[2017-04-17] MEDS: FERROUS SULFATE (EC) 325 MG TAB PO SCH ×2 (08:27→20:43)
[2017-04-17] MEDS: SALMETEROL/FLUTICASONE 250/50 INHA INH SCH ×2 (08:27→20:43)
[2017-04-17] MEDS: FUROSEMIDE 40 MG INJ IV SCH (08:29)
[2017-04-17] MEDS: LOSARTAN 50 MG TAB PO SCH (08:29)
[2017-04-17] MEDS: NIFEdipine (XL) 90 MG TAB PO SCH (08:29)
[2017-04-17] MEDS: INSULIN ASPART [NOVOLOG] 3 ML PEN SC SCH ×7 (08:36→20:47)
[2017-04-17] MEDS: NICOTINE (14 MG/24 HR) PATCH TRANSDERM SCH (10:27)
--- NOTE | 2017-04-17 12:29 | PN ---
Date/Time of Note Date/Time of Note DATE: 04/17/17 TIME: 12:22 Assessment/Plan VTE Prophylaxis VTE Prophylaxis Intervention: SCD's Lines/Catheters IV Catheter Type (from Nrs): Saline Lock Assessment/Plan Chief Complaint/Hosp Course S: Patient has less shortness of breath. No acute events overnight, still getting breathing treatments every 4 hours. O: VS (see below) PE: Constitutional: Lying in bed, no acute distress Head: atraumatic, normocephalic Eyes: EOMI, PERRL Respiratory: Clear to auscultation bilaterally Cardiovascular: nl pulses, regular rate and rhythm Gastrointestinal: non-tender, soft Extremities: normal pulses Assessment/Plan: 62-year-old male with a history of hypertension, COPD, type I diabetes, BPH, dyslipidemia, diastolic dysfunction, pleural effusion requiring thoracentesis presents with a progressively worsening shortness of breath, most likely a combination of recurrent pleural effusion, COPD and diastolic dysfunction 1. SOB: improving, likely secondary patient's COPD. CXR yesterday also showed: IMPRESSION: 1. Moderate right pleural effusion, larger than seen previously. 2. Worse appearance of the right lung base. 3. Pulmonary edema. 4. Cardiomegaly and atherosclerosis. -Consider ultrasound-guided thoracentesis for right pleural effusion -Continue supplemental oxygen, bronchodilators, steroid and diuresis 2. DM -sugars in the high normal range, patient on steroids --Continue insulin 3. BPH: -Continue Flomax for BPH Problems: Exam/Review of Systems Vital Signs Vitals Vital Signs Date Time Temp Pulse Resp B/P Pulse Ox O2 Delivery O2 Flow Rate FiO2 04/17/17 11:27 97.2 96 18 154/70 94 04/17/17 10:12 2.0 04/17/17 10:11 Nasal Cannula 04/17/17 00:27 28 Intake and Output 04/16/17 04/16/17 04/17/17 15:00 23:00 07:00 Intake Total 1250 ml Output Total 900 ml Balance 350 ml Results Result Diagram: 04/17/17 0615 04/17/17 0615 Results 24 hrs Laboratory Tests Test 04/16/17 12:31 04/16/17 17:28 04/16/17 20:40 04/17/17 06:15 Bedside Glucose 254 H 175 105 White Blood Count 15.6 #H Red Blood Count 3.67 L Hemoglobin 10.2 L Hematocrit 32.1 L Mean Corpuscular Volume 87.5 Mean Corpuscular Hemoglobin 27.8 L Mean Corpuscular Hemoglobin Concent 31.8 L Red Cell Distribution Width 14.2 Platelet Count 281 Mean Platelet Volume 10.8 H Neutrophils % 93.7 H Lymphocytes % 4.2 L Monocytes % 1.4 Eosinophils % 0.0 Basophils % 0.1 Nucleated Red Blood Cells % 0.0 Neutrophils # 14.6 H Lymphocytes # 0.7 L Monocytes # 0.2 L Eosinophils # 0.0 Basophils # 0.0 Nucleated Red Blood Cells # 0.0 Sodium Level 141 Potassium Level 4.8 Chloride Level 100 Carbon Dioxide Level 33 H Anion Gap 13 Blood Urea Nitrogen 40 H Creatinine 1.16 Glucose Level 401 *H Calcium Level 8.8 Phosphorus Level 4.1 Magnesium Level 1.9 Test 04/17/17 08:26 04/17/17 12:13 Bedside Glucose 343 H 212 Medications Medications Current Medications Lorazepam (Ativan) 0.5 mg Q8H PRN PO ANXIETY; Start 04/16/17 at 00:30 Ondansetron HCl (Zofran Inj) 4 mg Q6H PRN IV NAUSEA AND/OR VOMITING; Start 04/16/17 at 00:30 Furosemide (Lasix) 40 mg DAILY IV Last administered on 04/17/17 08:29; Admin Dose 40 MG; Start 04/16/17 at 09:00 Nitroglycerin (Nitroglycerin (Sl Tab) 0.4 Mg) 1 tab Q5M PRN SL CHEST PAIN; Start 04/16/17 at 00:30 Acetaminophen (Tylenol Tab) 650 mg Q6H PRN PO PAIN LEVEL 1-3 OR FEVER Last administered on 04/16/17 16:15; Admin Dose 650 MG; Start 04/16/17 at 00:30 Morphine Sulfate (morphine) 2 mg Q4H PRN IV PAIN LEVEL 7-10; Start 04/16/17 at 00:30 Aspirin (Aspirin) 81 mg DAILY PO Last administered on 04/17/17 08:27; Admin Dose 81 MG; Start 04/16/17 at 09:00 Ferrous Sulfate (Ferrous Sulfate (Ec)) 325 mg BID PO Last administered on 08:27; Admin Dose 325 MG; Start 04/16/17 at 09:00 Gabapentin (Neurontin) 300 mg TID PO Last administered on 04/17/17 08:27; Admin Dose 300 MG; Start 04/16/17 at 09:00 Insulin Glargine (Lantus) 48 unit QHS SC Last administered on 04/16/17 20:57; Admin Dose 48 UNIT; Start 04/16/17 at 21:00 Losartan Potassium (Cozaar) 100 mg DAILY PO Last administered on 04/17/17 08: 29; Admin Dose 100 MG; Start 04/16/17 at 09:00 Nifedipine (Procardia Xl) 90 mg DAILY PO Last administered on 04/17/17 08:29; Admin Dose 90 MG; Start 04/16/17 at 09:00 Salmeterol Xinafoate/ Fluticasone (Advair 250/50 Diskus) 1 inh BID INH Last administered on 04/17/17 08:27; Admin Dose 1 INH; Start 04/16/17 at 00:30 Tamsulosin HCl (Flomax) 0.4 mg HS PO Last administered on 04/16/17 20:42; Admin Dose 0.4 MG; Start 04/16/17 at 21:00 Thiamine HCl (Vitamin B1) 100 mg DAILY PO Last administered on 04/17/17 08:27 ; Admin Dose 100 MG; Start 04/16/17 at 09:00 Nicotine (Nicoderm 14 Mg/ 24hr) 1 patch DAILY TRANSDERM Last administered on 10:27; Admin Dose 1 PATCH; Start 04/16/17 at 09:00 Methylprednisolone Sodium Succinate (Solu-Medrol) 60 mg Q12 IV Last administered on 04/17/17 08:27; Admin Dose 60 MG; Start 04/16/17 at 00:30 Hydralazine HCl (Apresoline) 10 mg Q4H PRN IV SBP > 160; Start 04/16/17 at 00: 30 Miscellaneous Information 1 ea NOTE XX ; Start 04/16/17 at 00:40 Glucose (Glutose) 15 gm Q15M PRN PO DECREASED GLUCOSE; Start 04/16/17 at 00:40 Glucose (Glutose) 22.5 gm Q15M PRN PO DECREASED GLUCOSE; Start 04/16/17 at 00: 40 Dextrose (D50w Syringe) 25 ml Q15M PRN IV DECREASED GLUCOSE; Start 04/16/17 at 00:40 Dextrose (D50w Syringe) 50 ml Q15M PRN IV DECREASED GLUCOSE; Start 04/16/17 at 00:40 Glucagon (Glucagen) 1 mg Q15M PRN IM DECREASED GLUCOSE; Start 04/16/17 at 00:40 Glucose (Glutose) 15 gm Q15M PRN BUCCAL DECREASED GLUCOSE; Start 04/16/17 at 00 :40 Miscellaneous Information (Flu Vaccine Previously Dispensed) FLU VACCINE PREVIOU... NOTE PRN XX NOTE; Start 04/16/17 at 01:30 Diagnostic Test (Pha) (Accu-Chek) 1 ea 02 XX ; Start 04/17/17 at 02:00 Magnesium Hydroxide (Milk Of Mag) 30 ml DAILY PRN PO CONSTIPATION Last administered on 04/16/17t 13:32; Admin Dose 30 ML; Start 04/16/17 at 13:30 JERMAINE TEJADA Apr 17, 2017 12:29
[2017-04-17 14:22] LABS: PARTIAL THROMBOPLASTIN TIME 29.9 Sec (25.0-35.0); PROTIME 13.3 Sec (11.9-14.9)
[2017-04-17] MEDS: MAGNESIUM HYDROXIDE 30ML CUP PO PRN ×2 (15:10→20:56)
[2017-04-17] MEDS ORDERED: LIDOCAINE 1% (MPF) 5 ML VIAL ONE (18:13)
--- NOTE | 2017-04-17 18:25 | RADRPT ---
PROCEDURE: XR Chest. CLINICAL INDICATION: Post thoracentesis TECHNIQUE: Anterior chest x-ray. COMPARISON: 11/28/2016, 04/16/2017 FINDINGS: There is interval reduction in size of right pleural effusion. Small right pleural effusion remains. No evidence of pneumothorax. Mild subsegmental atelectasis in the right lung base, unchanged. The heart size is large. There is atherosclerotic calcification of the aorta. The cardiomediastinal silhouette is otherwise unremarkable. The soft tissues are normal. Osseous structures are unremarkable. IMPRESSION: 1. Interval reduction in size of right pleural effusion. Small residual pleural effusion is identif ied. 2. No evidence of pneumothorax. 3. Cardiomegaly. 4. Atherosclerotic calcification of the aorta. RPTAT: QQ .Rafiq Barahona MD, Date Time Electronically viewed and signed by .Rafiq Barahona MD, on 04/17/2017 18:24 .M/
--- NOTE | 2017-04-17 18:25 | RADRPT ---
PROCEDURE: Ultrasound guided thoracentesis CLINICAL INDICATION: Pleural effusion TECHNIQUE: Multiple sonographic images were obtained through the patient's chest. A site in the sho marie's right lower chest was selected and marked ink pen. The area was prepped and draped in the u sual sterile fashion. The skin and subcutaneous tissues were anesthetized with 10 cc of 1% lidocain e. A a 6-English 10 cm long thoracentesis needle was advanced into the pleural space and the introduc er was connected to a vacuum drainage system. A total of 1850 cc of clear yellow fluid was drained. The patient tolerated the procedure well. The specimen was sent for laboratory evaluation. COMPARISON: Chest x-ray dated 04/16/2017 FINDINGS: Anechoic fluid visualized in the chest cavity on ultrasound. IMPRESSION: 1. Successful ultrasound-guided thoracentesis without immediate complication. RPTAT: QQ .Rafiq Barahona MD, MD Date Time Electronically viewed and signed by .Rafiq Barahona MD, on 04/17/2017 18:25 .M/
[2017-04-17] MEDS: TAMSULOSIN (SR) 0.4 MG CAP PO SCH (20:43)
[2017-04-17] MEDS: INSULIN GLARGINE [LANtus] 3 ML PEN SC SCH (20:47)
[2017-04-18] VITALS (8 sets, daily range): BP systolic 116–195; BP diastolic 58–84; PULSE 92–105; RESP 17–20
[2017-04-18] MEDS: ACCU-CHEK XX SCH (02:00)
[2017-04-18 07:01] LABS: CALCIUM 8.8 mg/dl (8.4-10.2); CREATININE 0.96 mg/dl (0.61-1.24); POTASSIUM 4.9 mmol/L (3.5-5.1)
[2017-04-18] MEDS: ALBUTEROL/IPRATROPIUM (NEB) 3 ML AMP HHN PRN ×2 (08:00→17:38)
[2017-04-18] MEDS: INSULIN ASPART [NOVOLOG] 3 ML PEN SC SCH ×7 (08:14→21:00)
[2017-04-18 08:39] LABS: ABNORMAL IP MESSAGE 1; BASOPHILS % 0.1 % (0.0-2.0); HEMATOCRIT 33.7 % (42.0-52.0); HEMOGLOBIN 10.5 g/dl (14.0-18.0); LYMPHOCYTES # 0.5 10^3/ul (0.8-2.9); LYMPHOCYTES % 3.7 % (15.0-51.0); MEAN CORPUSCULAR HEMOGLOBIN 27.9 pg (29.0-33.0); MEAN CORPUSCULAR HGB CONC 31.2 g/dl (32.0-37.0); MEAN CORPUSCULAR VOLUME 89.6 fl (82.0-101.0); MEAN PLATELET VOLUME 11.1 fl (7.4-10.4); MONOCYTE # 0.3 10^3/ul (0.3-0.9); NEUTROPHIL # 13.7 10^3/ul (1.6-7.5); NEUTROPHILS % 93.7 % (39.0-77.0); PLATELET COUNT 273 10^3/UL (140-415); POSITIVE DIFF @See below; RED BLOOD COUNT 3.76 10^6/ul (4.70-6.10); RED CELL DISTRIBUTION WIDTH 14.3 % (11.5-14.5); WHITE BLOOD COUNT 14.6 10^3/ul (4.8-10.8)
[2017-04-18] MEDS: NICOTINE (14 MG/24 HR) PATCH TRANSDERM SCH (08:48)
[2017-04-18] MEDS: FUROSEMIDE 40 MG INJ IV SCH (08:49)
[2017-04-18] MEDS: NIFEdipine (XL) 90 MG TAB PO SCH (08:49)
[2017-04-18] MEDS: THIAMINE 100 MG TAB PO SCH (08:49)
[2017-04-18] MEDS: METHYLPREDNISOLONE 125 MG INJ IV SCH (08:49)
[2017-04-18] MEDS: ASPIRIN 81 MG TAB PO SCH (08:49)
[2017-04-18] MEDS: FERROUS SULFATE (EC) 325 MG TAB PO SCH ×2 (08:49→21:27)
[2017-04-18] MEDS: SALMETEROL/FLUTICASONE 250/50 INHA INH SCH ×2 (08:49→21:27)
[2017-04-18] MEDS: GABAPENTIN 300 MG CAP PO SCH ×3 (08:49→21:27)
[2017-04-18] MEDS: LOSARTAN 50 MG TAB PO SCH (08:50)
--- NOTE | 2017-04-18 11:37 | PN ---
Date/Time of Note Date/Time of Note DATE: 04/18/17 TIME: 11:32 Assessment/Plan VTE Prophylaxis VTE Prophylaxis Intervention: SCD's Lines/Catheters IV [facility]from [facility] Saline Lock Urinary Cath still in place: No Assessment/Plan Chief Complaint/Hosp Course S: Patient had thoracentesis performed yesterday with 1800 cc of fluid removed. No acute events overnight. Sugars still elevated. O: VS (see below) PE: Constitutional: Lying in bed, no acute distress Head: atraumatic, normocephalic Eyes: EOMI, PERRL Respiratory: Clear to auscultation bilaterally Cardiovascular: nl pulses, regular rate and rhythm Gastrointestinal: non-tender, soft Extremities: normal pulses Assessment/Plan: 62-year-old male with a history of hypertension, COPD, type I diabetes, BPH, dyslipidemia, diastolic dysfunction, pleural effusion requiring thoracentesis presents with a progressively worsening shortness of breath, most likely a combination of recurrent pleural effusion, COPD and diastolic dysfunction 1. SOB: improving, likely secondary patient's COPD. Patient with thoracentesis performed yesterday 1850 cc removed. On supplemental oxygen. -Continue duo nebs as needed, taper down steroids (from IV to p.o. starting tomorrow), on Advair. -Continue supplemental oxygen 2. DM -sugars in the high normal range, patient on steroids. --Continue insulin, Lantus, aspart with meals 3. BPH: -Continue Flomax for BPH Problems: Exam/Review of Systems Vital Signs Vitals Vital Signs Date Time Temp Pulse Resp B/P Pulse Ox O2 Delivery O2 Flow Rate FiO2 04/18/17 08:15 Nasal Cannula 2.0 04/18/17 08:12 97 04/18/17 07:58 97.7 19 195/84 95 04/17/17 00:27 28 Intake and Output 04/17/17 04/17/17 04/18/17 15:00 23:00 07:00 Intake Total 1340 ml 300 ml Output Total 800 ml Balance 540 ml 300 ml Results Result Diagram: 04/18/17 0536 04/18/17 0536 Results 24 hrs Laboratory Tests Test 04/17/17 12:13 04/17/17 13:44 04/17/17 18:35 04/17/17 20:04 Bedside Glucose 212 235 H 282 H Prothrombin Time 13.3 Prothrombin Time Ratio 1.0 INR International Normalized Ratio 1.00 Activated Partial Thromboplast Time 29.9 Test 04/18/17 05:36 04/18/17 08:08 White Blood Count 14.6 H Red Blood Count 3.76 L Hemoglobin 10.5 L Hematocrit 33.7 L Mean Corpuscular Volume 89.6 Mean Corpuscular Hemoglobin 27.9 L Mean Corpuscular Hemoglobin Concent 31.2 L Red Cell Distribution Width 14.3 Platelet Count 273 Mean Platelet Volume 11.1 H Neutrophils % 93.7 H Lymphocytes % 3.7 L Monocytes % 2.0 Eosinophils % 0.0 Basophils % 0.1 Nucleated Red Blood Cells % 0.0 Neutrophils # 13.7 H Lymphocytes # 0.5 L Monocytes # 0.3 Eosinophils # 0.0 Basophils # 0.0 Nucleated Red Blood Cells # 0.0 Sodium Level 143 Potassium Level 4.9 Chloride Level 101 Carbon Dioxide Level 35 H Anion Gap 12 Blood Urea Nitrogen 43 H Creatinine 0.96 Glucose Level 321 H Calcium Level 8.8 Bedside Glucose 285 H Medications Medications Current Medications Lorazepam (Ativan) 0.5 mg Q8H PRN PO ANXIETY; Start 04/16/17 at 00:30 Ondansetron HCl (Zofran Inj) 4 mg Q6H PRN IV NAUSEA AND/OR VOMITING; Start 04/16/17 at 00:30 Furosemide (Lasix) 40 mg DAILY IV Last administered on 04/18/17 08:49; Admin Dose 40 MG; Start 04/16/17 at 09:00 Nitroglycerin (Nitroglycerin (Sl Tab) 0.4 Mg) 1 tab Q5M PRN SL CHEST PAIN; Start 04/16/17 at 00:30 Acetaminophen (Tylenol Tab) 650 mg Q6H PRN PO PAIN LEVEL 1-3 OR FEVER Last administered on 04/16/17 16:15; Admin Dose 650 MG; Start 04/16/17 at 00:30 Morphine Sulfate (morphine) 2 mg Q4H PRN IV PAIN LEVEL 7-10; Start 04/16/17 at 00:30 Aspirin (Aspirin) 81 mg DAILY PO Last administered on 04/18/17 08:49; Admin Dose 81 MG; Start 04/16/17 at 09:00 Ferrous Sulfate (Ferrous Sulfate (Ec)) 325 mg BID PO Last administered on 04/18 08:49; Admin Dose 325 MG; Start 04/16/17 at 09:00 Gabapentin (Neurontin) 300 mg TID PO Last administered on 04/18/17 08:49; Admin Dose 300 MG; Start 04/16/17 at 09:00 Insulin Glargine (Lantus) 48 unit QHS SC Last administered on 04/17/17 20:47; Admin Dose 48 UNIT; Start 04/16/17 at 21:00 Losartan Potassium (Cozaar) 100 mg DAILY PO Last administered on 04/18/17 08: 50; Admin Dose 100 MG; Start 04/16/17 at 09:00 Nifedipine (Procardia Xl) 90 mg DAILY PO Last administered on 04/18/17 08:49 ; Admin Dose 90 MG; Start 04/16/17 at 09:00 Salmeterol Xinafoate/ Fluticasone (Advair 250/50 Diskus) 1 inh BID INH Last administered on 04/18/17 08:49; Admin Dose 1 INH; Start 04/16/17 at 00:30 Tamsulosin HCl (Flomax) 0.4 mg HS PO Last administered on 04/17/17 20:43; Admin Dose 0.4 MG; Start 04/16/17 at 21:00 Thiamine HCl (Vitamin B1) 100 mg DAILY PO Last administered on 04/18/17 08:49 ; Admin Dose 100 MG; Start 04/16/17 at 09:00 Nicotine (Nicoderm 14 Mg/ 24hr) 1 patch DAILY TRANSDERM Last administered on 08:48; Admin Dose 1 PATCH; Start 04/16/17 at 09:00 Methylprednisolone Sodium Succinate (Solu-Medrol) 60 mg Q12 IV Last administered on 04/18/17 08:49; Admin Dose 60 MG; Start 04/16/17 at 00:30 Hydralazine HCl (Apresoline) 10 mg Q4H PRN IV SBP > 160; Start 04/16/17 at 00: 30 Miscellaneous Information 1 ea NOTE XX ; Start 04/16/17 at 00:40 Glucose (Glutose) 15 gm Q15M PRN PO DECREASED GLUCOSE; Start 04/16/17 at 00:40 Glucose (Glutose) 22.5 gm Q15M PRN PO DECREASED GLUCOSE; Start 04/16/17 at 00: 40 Dextrose (D50w Syringe) 25 ml Q15M PRN IV DECREASED GLUCOSE; Start 04/16/17 at 00:40 Dextrose (D50w Syringe) 50 ml Q15M PRN IV DECREASED GLUCOSE; Start 04/16/17 at 00:40 Glucagon (Glucagen) 1 mg Q15M PRN IM DECREASED GLUCOSE; Start 04/16/17 at 00:40 Glucose (Glutose) 15 gm Q15M PRN BUCCAL DECREASED GLUCOSE; Start 04/16/17 at 00 :40 Miscellaneous Information (Flu Vaccine Previously Dispensed) FLU VACCINE PREVIOU... NOTE PRN XX NOTE; Start 04/16/17 at 01:30 Diagnostic Test (Pha) (Accu-Chek) 1 ea 02 XX ; Start 04/17/17 at 02:00 Magnesium Hydroxide (Milk Of Mag) 30 ml DAILY PRN PO CONSTIPATION Last administered on 04/17/17t 20:56; Admin Dose 30 ML; Start 04/16/17 at 13:30 JERMAINE TEJADA Apr 18, 2017 11:37
[2017-04-18] MEDS: BISACODYL 10 MG SUPP PR PRN (12:35)
[2017-04-18] MEDS: LEVOFLOXACIN 750 MG TABLET PO SCH (14:23)
[2017-04-18 15:02] LABS: ADD UMIC YES; UR ASCORBIC ACID NEGATIVE (NEGATIVE); UR BACTERIA FEW /HPF (NONE SEEN); UR BILIRUBIN (Dip) NEGATIVE (NEGATIVE); UR BLOOD (Dip) 1+ mg/dL (NEGATIVE); UR CLARITY CLEAR (CLEAR); UR COLOR STRAW (YELLOW); UR GLUCOSE (Dip) 1+ mg/dL (NEGATIVE); UR KETONES (Dip) NEGATIVE (NEGATIVE); UR LEUKOCYTE ESTERASE (Dip) NEGATIVE Leu/ul (NEGATIVE); UR NITRITE (Dip) NEGATIVE (NEGATIVE); UR RBC 1 /HPF (0-5); UR SPECIFIC GRAVITY (Dip) 1.012 (1.003-1.030); UR TOTAL PROTEIN (Dip) NEGATIVE (NEGATIVE); UR UROBILINOGEN (Dip) NEGATIVE (NEGATIVE)
[2017-04-18] MEDS: TAMSULOSIN (SR) 0.4 MG CAP PO SCH (21:27)
[2017-04-18] MEDS: ACETAMINOPHEN 325 MG TAB PO PRN (21:28)
[2017-04-18] MEDS: INSULIN GLARGINE [LANtus] 3 ML PEN SC SCH (21:31)
[2017-04-18] MEDS: MAGNESIUM HYDROXIDE 30ML CUP PO PRN (21:35)
[2017-04-19] MEDS: ACCU-CHEK XX SCH (02:00)
[2017-04-19 02:11] VITALS: BP 131/72; RESP 20
[2017-04-19] MEDS: LEVOFLOXACIN 750 MG TABLET PO SCH (05:35)
[2017-04-19 05:55] LABS: BASOPHILS % 0.1 % (0.0-2.0); EOSINOPHILS % 0.1 % (0.0-7.0); HEMATOCRIT 36.4 % (42.0-52.0); HEMOGLOBIN 11.3 g/dl (14.0-18.0); LYMPHOCYTES # 2.3 10^3/ul (0.8-2.9); LYMPHOCYTES % 17.9 % (15.0-51.0); MEAN CORPUSCULAR HEMOGLOBIN 27.4 pg (29.0-33.0); MEAN CORPUSCULAR VOLUME 88.1 fl (82.0-101.0); MONOCYTE # 1.1 10^3/ul (0.3-0.9); MONOCYTES % 8.8 % (0.0-11.0); NEUTROPHIL # 9.1 10^3/ul (1.6-7.5); NEUTROPHILS % 72.4 % (39.0-77.0); PLATELET COUNT 285 10^3/UL (140-415); RED BLOOD COUNT 4.13 10^6/ul (4.70-6.10); RED CELL DISTRIBUTION WIDTH 13.9 % (11.5-14.5); WHITE BLOOD COUNT 12.6 10^3/ul (4.8-10.8)
[2017-04-19 06:10] LABS: CALCIUM 9.2 mg/dl (8.4-10.2); CREATININE 0.82 mg/dl (0.61-1.24); POTASSIUM 4.4 mmol/L (3.5-5.1)
[2017-04-19 08:06] VITALS: BP 189/84; RESP 18
[2017-04-19] MEDS: INSULIN ASPART [NOVOLOG] 3 ML PEN SC SCH ×6 (08:15→20:39)
[2017-04-19] MEDS: FUROSEMIDE 40 MG INJ IV SCH (08:17)
[2017-04-19] MEDS: THIAMINE 100 MG TAB PO SCH (08:17)
[2017-04-19] MEDS: NIFEdipine (XL) 90 MG TAB PO SCH (08:17)
[2017-04-19] MEDS: ASPIRIN 81 MG TAB PO SCH (08:18)
[2017-04-19] MEDS: FERROUS SULFATE (EC) 325 MG TAB PO SCH ×2 (08:18→20:32)
[2017-04-19] MEDS: LOSARTAN 50 MG TAB PO SCH (08:18)
[2017-04-19] MEDS: GABAPENTIN 300 MG CAP PO SCH ×3 (08:18→20:33)
[2017-04-19] MEDS: NICOTINE (14 MG/24 HR) PATCH TRANSDERM SCH (08:19)
[2017-04-19] MEDS: SALMETEROL/FLUTICASONE 250/50 INHA INH SCH ×2 (08:24→20:32)
[2017-04-19] MEDS ORDERED: predniSONE 20 MG TAB PO SCH (09:00)
[2017-04-19 10:36] VITALS: BP 174/94
[2017-04-19 11:15] VITALS: BP 162/68
[2017-04-19] MEDS: hydrALAzine 20 MG INJ IV PRN (11:18)
[2017-04-19] MEDS: BISACODYL 10 MG SUPP PR PRN (13:47)
[2017-04-19 14:00] VITALS: BP 101/59; RESP 18
[2017-04-19] MEDS: FUROSEMIDE 40 MG TAB PO SCH (17:30)
--- NOTE | 2017-04-19 18:01 | PN ---
Date/Time of Note Date/Time of Note DATE: 04/19/17 TIME: 17:54 Assessment/Plan VTE Prophylaxis VTE Prophylaxis Intervention: SCD's Lines/Catheters IV Catheter Type (from [facility]): Saline Lock Urinary Cath still in place: No Assessment/Plan Assessment/Plan 62 yo M with known hx chronic diastolic HF with recurrent pleural effusions warranting drainage admitted for SOB. sp thora however fluid studies not performed. Respiratory status appears improved from admission however BGs low this AM # SOB: improving suspect from pleural effusion Of note, fluid studies were not sent this time and cytology was only sent in November (pt also had thoras in February and March). Multiple notes report these exudates are transudative, however based on the high LDH in the fluid these effusions have all been exudative. Last LDH on file from last year 538, all LDH of the effusions >300. Other providers state these recurrent pleural effusions are 2/2 pt's underlying diastolic HF, however it has reaccumulated despite diuretics. Fluid not sampled and thora done several days ago. Unlikely fluid has reaccumulated fast enough to sample at this time -will cont to treat for acute on chronic diastolic HF with high dose diuretic will ask RN to weight pt as none listed since admission -stop steroids as no compelling evidence of acute COPD exacerbation -pt will need outpatient pulm f/u. I would also advise that pleural fluid CONTINUE TO SENT FOR LDH/PROTEIN/CYTOLOGY EACH TIME PATIENT IS ADMITTED ETIO OF EFFUSIONS IS NOT WHOLLY CLEAR #. DM -decrease lantus given low BGs # BPH:Continue Flomax anticipate dc in AM if breathing continues to improve will need outpatient pulm f/u. also if pt had a regular wharfinger chief possible he could present to him/her when SOB and that thoras could be arranged in outpatient setting instead of pt presenting to the ER 3x in the past 3 mos Subjective 24 Hr Interval Summary Free Text/Dictation BGs a little low this AM Exam/Review of Systems Vital Signs Vitals Vital Signs Date Time Temp Pulse Resp B/P Pulse Ox O2 Delivery O2 Flow Rate FiO2 04/19/17 14:00 98.3 93 18 101/59 91 04/19/17 06:19 2.0 04/18/17 20:00 Nasal Cannula 04/17/17 00:27 28 Intake and Output 04/18/17 04/18/17 04/19/17 15:00 23:00 07:00 Intake Total 2100 ml Output Total 2000 ml Balance 100 ml Exam nad no wheezing, +decreased air movement in all lung borjas no mrg abd soft no rashes no edema Results Result Diagram: 04/19/1752104/19/17521 Results 24 hrs Laboratory Tests Test 04/18/17 21:26 04/19/17 05:22 04/19/17 08:00 04/19/17 08:16 Bedside Glucose 148 53 L 57 L White Blood Count 12.6 H Red Blood Count 4.13 L Hemoglobin 11.3 L Hematocrit 36.4 L Mean Corpuscular Volume 88.1 Mean Corpuscular Hemoglobin 27.4 L Mean Corpuscular Hemoglobin Concent 31.0 L Red Cell Distribution Width 13.9 Platelet Count 285 Mean Platelet Volume 10.0 Neutrophils % 72.4 Lymphocytes % 17.9 Monocytes % 8.8 Eosinophils % 0.1 Basophils % 0.1 Nucleated Red Blood Cells % 0.0 Neutrophils # 9.1 H Lymphocytes # 2.3 Monocytes # 1.1 H Eosinophils # 0.0 Basophils # 0.0 Nucleated Red Blood Cells # 0.0 Sodium Level 145 H Potassium Level 4.4 Chloride Level 100 Carbon Dioxide Level 39 H Anion Gap 10 Blood Urea Nitrogen 31 #H Creatinine 0.82 Glucose Level 77 # Calcium Level 9.2 Test 04/19/17 08:32 04/19/17 09:08 04/19/17 11:54 04/19/17 17:13 Bedside Glucose 80 97 134 282 H Medications Medications Current Medications Lorazepam (Ativan) 0.5 mg Q8H PRN PO ANXIETY; Start 04/16/17 at 00:30 Ondansetron HCl (Zofran Inj) 4 mg Q6H PRN IV NAUSEA AND/OR VOMITING; Start 04/16/17 at 00:30 Nitroglycerin (Nitroglycerin (Sl Tab) 0.4 Mg) 1 tab Q5M PRN SL CHEST PAIN; Start 04/16/17 at 00:30 Acetaminophen (Tylenol Tab) 650 mg Q6H PRN PO PAIN LEVEL 1-3 OR FEVER Last administered on 04/18/17t 21:28; Admin Dose 650 MG; Start 04/16/17 at 00:30 Morphine Sulfate (morphine) 2 mg Q4H PRN IV PAIN LEVEL 7-10; Start 04/16/17 at 00:30 Aspirin (Aspirin) 81 mg DAILY PO Last administered on 04/19/17 08:18; Admin Dose 81 MG; Start 04/16/17 at 09:00 Ferrous Sulfate (Ferrous Sulfate (Ec)) 325 mg BID PO Last administered on 04/19 08:18; Admin Dose 325 MG; Start 04/16/17 at 09:00 Gabapentin (Neurontin) 300 mg TID PO Last administered on 04/19/17 12:05; Admin Dose 300 MG; Start 04/16/17 at 09:00 Losartan Potassium (Cozaar) 100 mg DAILY PO Last administered on 04/19/17 08: 18; Admin Dose 100 MG; Start 04/16/17 at 09:00 Nifedipine (Procardia Xl) 90 mg DAILY PO Last administered on 04/19/17 08:17 ; Admin Dose 90 MG; Start 04/16/17 at 09:00 Salmeterol Xinafoate/ Fluticasone (Advair 250/50 Diskus) 1 inh BID INH Last administered on 04/19/17 08:24; Admin Dose 1 INH; Start 04/16/17 at 00:30 Tamsulosin HCl (Flomax) 0.4 mg HS PO Last administered on 04/18/17 21:27; Admin Dose 0.4 MG; Start 04/16/17 at 21:00 Thiamine HCl (Vitamin B1) 100 mg DAILY PO Last administered on 04/19/17 08:17 ; Admin Dose 100 MG; Start 04/16/17 at 09:00 Nicotine (Nicoderm 14 Mg/ 24hr) 1 patch DAILY TRANSDERM Last administered on 08:19; Admin Dose 1 PATCH; Start 04/16/17 at 09:00 Hydralazine HCl (Apresoline) 10 mg Q4H PRN IV SBP > 160 Last administered on 11:18; Admin Dose 10 MG; Start 04/16/17 at 00:30 Miscellaneous Information 1 ea NOTE XX ; Start 04/16/17 at 00:40 Glucose (Glutose) 15 gm Q15M PRN PO DECREASED GLUCOSE; Start 04/16/17 at 00:40 Glucose (Glutose) 22.5 gm Q15M PRN PO DECREASED GLUCOSE; Start 04/16/17 at 00: 40 Dextrose (D50w Syringe) 25 ml Q15M PRN IV DECREASED GLUCOSE; Start 04/16/17 at 00:40 Dextrose (D50w Syringe) 50 ml Q15M PRN IV DECREASED GLUCOSE; Start 04/16/17 at 00:40 Glucagon (Glucagen) 1 mg Q15M PRN IM DECREASED GLUCOSE; Start 04/16/17 at 00:40 Glucose (Glutose) 15 gm Q15M PRN BUCCAL DECREASED GLUCOSE; Start 04/16/17 at 00 :40 Miscellaneous Information (Flu Vaccine Previously Dispensed) FLU VACCINE PREVIOU... NOTE PRN XX NOTE; Start 04/16/17 at 01:30 Diagnostic Test (Pha) (Accu-Chek) 1 ea 02 XX ; Start 04/17/17 at 02:00 Magnesium Hydroxide (Milk Of Mag) 30 ml DAILY PRN PO CONSTIPATION Last administered on 04/18/17 21:35; Admin Dose 30 ML; Start 04/16/17 at 13:30 Bisacodyl (Dulcolax Supp) 10 mg DAILY PRN [place] CONSTIPATION Last administered on 04/19/17 13:47; Admin Dose 10 MG; Start 04/18/17 at 11:30 Prednisone (Prednisone) 60 mg DAILY PO Last administered on 04/19/17 08:18; Admin Dose 60 MG; Start 04/19/17 at 09:00 Insulin Glargine (Lantus) 30 unit QHS SC ; Start 04/19/17 at 21:00 LIVAN VEGAS MD Apr 19, 2017 18:01
[2017-04-19 19:48] VITALS: BP 131/63; RESP 18
[2017-04-19] MEDS: TAMSULOSIN (SR) 0.4 MG CAP PO SCH (20:32)
[2017-04-19] MEDS ORDERED: INSULIN GLARGINE [LANtus] 3 ML PEN SC SCH (21:00)
[2017-04-19] MEDS ORDERED: INSULIN ASPART [NOVOLOG] 3 ML PEN SC ONE (21:30)
[2017-04-20] MEDS: ACCU-CHEK XX SCH (02:00)
[2017-04-20 02:18] VITALS: BP 145/71; RESP 20
[2017-04-20 05:35] VITALS: BP 167/79; PULSE 85
[2017-04-20] MEDS: FUROSEMIDE 40 MG TAB PO SCH ×2 (05:40→18:03)
[2017-04-20 06:12] LABS: BASOPHILS % 0.1 % (0.0-2.0); EOSINOPHILS % 0.3 % (0.0-7.0); HEMATOCRIT 33.3 % (42.0-52.0); HEMOGLOBIN 10.6 g/dl (14.0-18.0); LYMPHOCYTES # 1.9 10^3/ul (0.8-2.9); LYMPHOCYTES % 18.2 % (15.0-51.0); MEAN CORPUSCULAR HEMOGLOBIN 27.9 pg (29.0-33.0); MEAN CORPUSCULAR HGB CONC 31.8 g/dl (32.0-37.0); MEAN CORPUSCULAR VOLUME 87.6 fl (82.0-101.0); MEAN PLATELET VOLUME 10.2 fl (7.4-10.4); MONOCYTE # 1.1 10^3/ul (0.3-0.9); MONOCYTES % 10.1 % (0.0-11.0); NEUTROPHIL # 7.3 10^3/ul (1.6-7.5); NEUTROPHILS % 70.8 % (39.0-77.0); PLATELET COUNT 277 10^3/UL (140-415); WHITE BLOOD COUNT 10.4 10^3/ul (4.8-10.8)
[2017-04-20 06:32] LABS: CALCIUM 8.9 mg/dl (8.4-10.2); CREATININE 0.96 mg/dl (0.61-1.24); POTASSIUM 4.2 mmol/L (3.5-5.1)
[2017-04-20] MEDS: INSULIN ASPART [NOVOLOG] 3 ML PEN SC SCH ×5 (08:15→21:00)
[2017-04-20] MEDS: SALMETEROL/FLUTICASONE 250/50 INHA INH SCH ×2 (08:16→21:13)
[2017-04-20] MEDS: ASPIRIN 81 MG TAB PO SCH (08:16)
[2017-04-20] MEDS: LOSARTAN 50 MG TAB PO SCH (08:17)
[2017-04-20] MEDS: GABAPENTIN 300 MG CAP PO SCH ×3 (08:17→21:13)
[2017-04-20] MEDS: FERROUS SULFATE (EC) 325 MG TAB PO SCH ×2 (08:17→21:13)
[2017-04-20] MEDS: NIFEdipine (XL) 90 MG TAB PO SCH (08:18)
[2017-04-20] MEDS: THIAMINE 100 MG TAB PO SCH (08:18)
[2017-04-20] MEDS: NICOTINE (14 MG/24 HR) PATCH TRANSDERM SCH (08:19)
[2017-04-20 08:27] VITALS: BP 182/88; PULSE 85; RESP 20
--- NOTE | 2017-04-20 13:38 | RADRPT ---
PROCEDURE: XR Left Shoulder. CLINICAL INDICATION: Left shoulder pain TECHNIQUE: 3 views of the left shoulder are available for review. COMPARISON: None available FINDINGS: There is no acute fracture. Alignment is normal. There is mild acromioclavicular osteoarthrosis and there are enthesopathic changes at the greater tu berosity. Soft tissues are grossly unremarkable. IMPRESSION: 1. No radiographic evidence of acute osseous abnormality. 2. Mild acromioclavicular osteoarthrosis and mild enthesopathic changes at the greater tuberosity. RPTAT: UU .Christian Chakraborty MD, MD Date Time Electronically viewed and signed by .Christian Chakraborty MD, on 04/20/2017 13:38 .K/
[2017-04-20 13:48] VITALS: BP 121/67; RESP 18
--- NOTE | 2017-04-20 15:29 | PN ---
Date/Time of Note Date/Time of Note DATE: 04/20/17 TIME: 15:18 Assessment/Plan VTE Prophylaxis VTE Prophylaxis Intervention: SCD's Lines/Catheters IV Catheter Type (from Nrs): Saline Lock Urinary Cath still in place: No Assessment/Plan Assessment/Plan 62 yo M with known hx chronic diastolic HF with recurrent pleural effusions warranting drainage admitted for SOB. sp thora however fluid studies not performed. Respiratory status appears improved from admission however BGs. Hospitalization notable for labile BGs and L shoulder pain. #SOB: repeat CXR to see if effusion has recurred -As I stated yesterday, I am not wholly convinced effusions 2/2 CHF as they are in fact exudative and not transudative as previously documented.also appears cytology has only been done once -cont dieresis #labile BG: appreciate DM RN note. Insulin adjusted #L shoulder pain: clinical exam suggestive of rotator cuff tendonitis/ tendinopathy. XR without fracture topical pain meds, PCP follow up OT eval # BPH:Continue Flomax will need outpatient pulm f/u. also if pt had a regular cold roll inspector possible he could present to him/her when SOB and that thoras could be arranged in outpatient setting instead of pt presenting to the ER 3x in the past 3 mos Subjective 24 Hr Interval Summary Free Text/Dictation reports L shoulder pain, also wondering if his R sided pleural effusion has recurred Exam/Review of Systems Vital Signs Vitals Vital Signs Date Time Temp Pulse Resp B/P Pulse Ox O2 Delivery O2 Flow Rate FiO2 04/20/17 13:48 97.5 92 18 121/67 94 04/20/17 09:00 Nasal Cannula 2.0 04/17/17 00:27 28 Intake and Output 04/19/17 04/19/17 04/20/17 15:00 23:00 07:00 Intake Total 600 ml Output Total 1900 ml Balance -1300 ml Exam nad +decreased breath sounds bl bases. +wheezing no mrg abd soft no rashes L shoulder: +discomfort with aBduction >90 degrees. lateral extension and post extension >30 degrees L shoulder XR without fracture, +OA Results Result Diagram: 04/20/17 0457 04/20/17 0457 Results 24 hrs Laboratory Tests Test 04/19/17 17:13 04/19/17 20:30 04/20/17 02:19 04/20/17 04:57 Bedside Glucose 282 H 351 H 300 H White Blood Count 10.4 Red Blood Count 3.80 L Hemoglobin 10.6 L Hematocrit 33.3 L Mean Corpuscular Volume 87.6 Mean Corpuscular Hemoglobin 27.9 L Mean Corpuscular Hemoglobin Concent 31.8 L Red Cell Distribution Width 14.0 Platelet Count 277 Mean Platelet Volume 10.2 Neutrophils % 70.8 Lymphocytes % 18.2 Monocytes % 10.1 Eosinophils % 0.3 Basophils % 0.1 Nucleated Red Blood Cells % 0.0 Neutrophils # 7.3 Lymphocytes # 1.9 Monocytes # 1.1 H Eosinophils # 0.0 Basophils # 0.0 Nucleated Red Blood Cells # 0.0 Sodium Level 140 Potassium Level 4.2 Chloride Level 96 L Carbon Dioxide Level 39 H Anion Gap 9 Blood Urea Nitrogen 38 H Creatinine 0.96 Glucose Level 208 # Hemoglobin A1c 10.4 H Calcium Level 8.9 Test 04/20/17 08:12 04/20/17 12:14 Bedside Glucose 134 176 Medications Medications Current Medications Lorazepam (Ativan) 0.5 mg Q8H PRN PO ANXIETY; Start 04/16/17 at 00:30 Ondansetron HCl (Zofran Inj) 4 mg Q6H PRN IV NAUSEA AND/OR VOMITING; Start 04/16/17 at 00:30 Nitroglycerin (Nitroglycerin (Sl Tab) 0.4 Mg) 1 tab Q5M PRN SL CHEST PAIN; Start 04/16/17 at 00:30 Acetaminophen (Tylenol Tab) 650 mg Q6H PRN PO PAIN LEVEL 1-3 OR FEVER Last administered on 04/18/17 21:28; Admin Dose 650 MG; Start 04/16/17 at 00:30 Morphine Sulfate (morphine) 2 mg Q4H PRN IV PAIN LEVEL 7-10; Start 04/16/17 at 00:30 Aspirin (Aspirin) 81 mg DAILY PO Last administered on 04/20/17 08:16; Admin Dose 81 MG; Start 04/16/17 at 09:00 Ferrous Sulfate (Ferrous Sulfate (Ec)) 325 mg BID PO Last administered on 04/20 08:17; Admin Dose 325 MG; Start 04/16/17 at 09:00 Gabapentin (Neurontin) 300 mg TID PO Last administered on 04/20/17 12:38; Admin Dose 300 MG; Start 04/16/17 at 09:00 Losartan Potassium (Cozaar) 100 mg DAILY PO Last administered on 04/20/17 08: 17; Admin Dose 100 MG; Start 04/16/17 at 09:00 Nifedipine (Procardia Xl) 90 mg DAILY PO Last administered on 04/20/17 08:18 ; Admin Dose 90 MG; Start 04/16/17 at 09:00 Salmeterol Xinafoate/ Fluticasone (Advair 250/50 Diskus) 1 inh BID INH Last administered on 04/20/17 08:16; Admin Dose 1 INH; Start 04/16/17 at 00:30 Tamsulosin HCl (Flomax) 0.4 mg HS PO Last administered on 04/19/17 20:32; Admin Dose 0.4 MG; Start 04/16/17 at 21:00 Thiamine HCl (Vitamin B1) 100 mg DAILY PO Last administered on 04/20/17 08:18 ; Admin Dose 100 MG; Start 04/16/17 at 09:00 Nicotine (Nicoderm 14 Mg/ 24hr) 1 patch DAILY TRANSDERM Last administered on 08:19; Admin Dose 1 PATCH; Start 04/16/17 at 09:00 Hydralazine HCl (Apresoline) 10 mg Q4H PRN IV SBP > 160 Last administered on 11:18; Admin Dose 10 MG; Start 04/16/17 at 00:30 Miscellaneous Information 1 ea NOTE XX ; Start 04/16/17 at 00:40 Glucose (Glutose) 15 gm Q15M PRN PO DECREASED GLUCOSE; Start 04/16/17 at 00:40 Glucose (Glutose) 22.5 gm Q15M PRN PO DECREASED GLUCOSE; Start 04/16/17 at 00: 40 Dextrose (D50w Syringe) 25 ml Q15M PRN IV DECREASED GLUCOSE; Start 04/16/17 at 00:40 Dextrose (D50w Syringe) 50 ml Q15M PRN IV DECREASED GLUCOSE; Start 04/16/17 at 00:40 Glucagon (Glucagen) 1 mg Q15M PRN IM DECREASED GLUCOSE; Start 04/16/17 at 00:40 Glucose (Glutose) 15 gm Q15M PRN BUCCAL DECREASED GLUCOSE; Start 04/16/17 at 00 :40 Miscellaneous Information (Flu Vaccine Previously Dispensed) FLU VACCINE PREVIOU... NOTE PRN XX NOTE; Start 04/16/17 at 01:30 Diagnostic Test (Pha) (Accu-Chek) 1 XX ; Start 04/17/17 at 02:00 Magnesium Hydroxide (Milk Of Mag) 30 ml DAILY PRN PO CONSTIPATION Last administered on 04/18/17t 21:35; Admin Dose 30 ML; Start 04/16/17 at 13:30 Bisacodyl (Dulcolax Supp) 10 mg DAILY PRN [place] CONSTIPATION Last administered on 04/19/17t 13:47; Admin Dose 10 MG; Start 04/18/17 at 11:30 Insulin Glargine (Lantus) 48 unit QHS SC ; Start 04/20/17 at 21:00 LIVAN VEGAS MD Apr 20, 2017 15:28
--- NOTE | 2017-04-20 17:32 | RADRPT ---
PROCEDURE: XR Chest. CLINICAL INDICATION: Shortness of breath. Pleural effusion. TECHNIQUE: AP and lateral view of the chest were obtained. COMPARISON: 04/17/2017 and additional priors FINDINGS: Cardiac/vascular structures: Normal cardiomediastinal silhouette. Aortic calcifications. Pulmonary: Right basilar airspace opacity.. Small right pleural effusion. No evidence of pneumothor ax. Osseous structures: Normal Soft tissues: Normal IMPRESSION: Small right pleural effusion with right basilar airspace opacity representing atelectasis or pneumon ia. Aortic atherosclerotic calcifications. RPTAT:AAJJ Physician Marjan Date Time Electronically viewed and signed by Physician Marjan on 04/20/2017 17:32 /
[2017-04-20] MEDS: MAGNESIUM HYDROXIDE 30ML CUP PO PRN (18:03)
[2017-04-20 19:27] VITALS: BP 120/62; RESP 17
[2017-04-20] MEDS: ACETAMINOPHEN 325 MG TAB PO PRN (19:45)
[2017-04-20] MEDS ORDERED: INSULIN GLARGINE [LANtus] 3 ML PEN SC SCH ×2 (21:00)
[2017-04-20] MEDS: TAMSULOSIN (SR) 0.4 MG CAP PO SCH (21:13)
[2017-04-20] MEDS: BISACODYL 10 MG SUPP PR PRN (21:17)
[2017-04-21] VITALS (7 sets, daily range): BP systolic 108–171; BP diastolic 56–86; PULSE 84–85; RESP 17–20
[2017-04-21] MEDS: ACCU-CHEK XX SCH (02:00)
[2017-04-21] MEDS: ACETAMINOPHEN 325 MG TAB PO PRN ×2 (02:15→22:05)
[2017-04-21 06:10] LABS: BASOPHILS % 0.1 % (0.0-2.0); EOSINOPHILS # 0.4 10^3/ul (0.0-0.5); EOSINOPHILS % 4.8 % (0.0-7.0); HEMATOCRIT 36.7 % (42.0-52.0); HEMOGLOBIN 11.4 g/dl (14.0-18.0); LYMPHOCYTES # 2.8 10^3/ul (0.8-2.9); LYMPHOCYTES % 30.6 % (15.0-51.0); MEAN CORPUSCULAR HEMOGLOBIN 27.3 pg (29.0-33.0); MEAN CORPUSCULAR HGB CONC 31.1 g/dl (32.0-37.0); MEAN CORPUSCULAR VOLUME 87.8 fl (82.0-101.0); MEAN PLATELET VOLUME 9.5 fl (7.4-10.4); MONOCYTE # 0.8 10^3/ul (0.3-0.9); MONOCYTES % 9.1 % (0.0-11.0); NEUTROPHIL # 4.9 10^3/ul (1.6-7.5); PLATELET COUNT 276 10^3/UL (140-415); RED BLOOD COUNT 4.18 10^6/ul (4.70-6.10); RED CELL DISTRIBUTION WIDTH 13.8 % (11.5-14.5)
[2017-04-21] MEDS: hydrALAzine 20 MG INJ IV PRN (06:17)
[2017-04-21] MEDS: FUROSEMIDE 40 MG TAB PO SCH ×2 (06:17→17:33)
[2017-04-21 06:38] LABS: CALCIUM 8.6 mg/dl (8.4-10.2); CREATININE 1.09 mg/dl (0.61-1.24); POTASSIUM 4.4 mmol/L (3.5-5.1)
[2017-04-21] MEDS: INSULIN ASPART [NOVOLOG] 3 ML PEN SC SCH ×7 (08:00→21:00)
[2017-04-21] MEDS: SALMETEROL/FLUTICASONE 250/50 INHA INH SCH ×2 (08:13→20:57)
[2017-04-21] MEDS: ASPIRIN 81 MG TAB PO SCH (08:13)
[2017-04-21] MEDS: FERROUS SULFATE (EC) 325 MG TAB PO SCH ×2 (08:14→20:57)
[2017-04-21] MEDS: LOSARTAN 50 MG TAB PO SCH (08:14)
[2017-04-21] MEDS: NICOTINE (14 MG/24 HR) PATCH TRANSDERM SCH (08:15)
[2017-04-21] MEDS: GABAPENTIN 300 MG CAP PO SCH ×3 (08:15→20:57)
[2017-04-21] MEDS: THIAMINE 100 MG TAB PO SCH (08:18)
[2017-04-21] MEDS: NIFEdipine (XL) 90 MG TAB PO SCH (08:18)
[2017-04-21] MEDS: CAPSAICIN 0.025% 60 GM CR TOP PRN (15:38)
--- NOTE | 2017-04-21 18:13 | PN ---
Date/Time of Note Date/Time of Note DATE: 04/21/17 TIME: 18:11 Assessment/Plan VTE Prophylaxis VTE Prophylaxis Intervention: SCD's Lines/Catheters IV Catheter Type (from Nrs): Saline Lock Urinary Cath still in place: No Assessment/Plan Assessment/Plan 62 yo M with known hx chronic diastolic HF with recurrent pleural effusions warranting drainage admitted for SOB. sp thora however fluid studies not performed. Respiratory status appears improved from admission however BGs. Hospitalization notable for labile BGs and L shoulder pain. #SOB:repeat CXR with small effusion -As I stated yesterday, I am not wholly convinced effusions 2/2 CHF as they are in fact exudative and not transudative as previously documented.also appears cytology has only been done once -cont dieresis -will talk to IR tomorrow about possible repeat thora #labile BG: appreciate DM RN note BG low this AM, will reduce lantus #L shoulder pain: clinical exam suggestive of rotator cuff tendonitis/ tendinopathy. XR without fracture topical pain meds, PCP follow up OT eval complete, will clarify dispo recs in AM # BPH:Continue Flomax will need outpatient pulm f/u. also if pt had a regular home office claim specialist possible he could present to him/her when SOB and that thoras could be arranged in outpatient setting instead of pt presenting to the ER 3x in the past 3 mos Subjective 24 Hr Interval Summary Free Text/Dictation feels about the same Exam/Review of Systems Vital Signs Vitals Vital Signs Date Time Temp Pulse Resp B/P Pulse Ox O2 Delivery O2 Flow Rate FiO2 04/21/17 13:03 88 20 108/56 93 04/21/17 09:00 Nasal Cannula 2.0 04/21/17 07:22 98.7 Intake and Output 04/20/17 04/20/17 04/21/17 15:00 23:00 07:00 Intake Total 1800 ml 1800 ml Output Total 1500 ml 1400 ml Balance 300 ml 400 ml Exam nad no mrg decrease breath sounds R lower lung abd soft no rashes Results Result Diagram: 04/21/17 0539 04/21/17 0539 Results 24 hrs Laboratory Tests Test 04/20/17 21:16 04/21/17 05:39 04/21/17 07:53 04/21/17 07:59 Bedside Glucose 118 64 L 76 White Blood Count 9.0 Red Blood Count 4.18 L Hemoglobin 11.4 L Hematocrit 36.7 L Mean Corpuscular Volume 87.8 Mean Corpuscular Hemoglobin 27.3 L Mean Corpuscular Hemoglobin Concent 31.1 L Red Cell Distribution Width 13.8 Platelet Count 276 Mean Platelet Volume 9.5 Neutrophils % 55.0 Lymphocytes % 30.6 Monocytes % 9.1 Eosinophils % 4.8 Basophils % 0.1 Nucleated Red Blood Cells % 0.0 Neutrophils # 4.9 Lymphocytes # 2.8 Monocytes # 0.8 Eosinophils # 0.4 Basophils # 0.0 Nucleated Red Blood Cells # 0.0 Sodium Level 140 Potassium Level 4.4 Chloride Level 96 L Carbon Dioxide Level 36 H Anion Gap 12 Blood Urea Nitrogen 37 H Creatinine 1.09 Glucose Level 79 # Calcium Level 8.6 Test 04/21/17 11:57 04/21/17 17:31 Bedside Glucose 146 135 Medications Medications Current Medications Lorazepam (Ativan) 0.5 mg Q8H PRN PO ANXIETY; Start 04/16/17 at 00:30 Ondansetron HCl (Zofran Inj) 4 mg Q6H PRN IV NAUSEA AND/OR VOMITING; Start 04/16/17 at 00:30 Nitroglycerin (Nitroglycerin (Sl Tab) 0.4 Mg) 1 tab Q5M PRN SL CHEST PAIN; Start 04/16/17 at 00:30 Acetaminophen (Tylenol Tab) 650 mg Q6H PRN PO PAIN LEVEL 1-3 OR FEVER Last administered on 04/21/17 02:15; Admin Dose 650 MG; Start 04/16/17 at 00:30 Morphine Sulfate (morphine) 2 mg Q4H PRN IV PAIN LEVEL 7-10; Start 04/16/17 at 00:30 Aspirin (Aspirin) 81 mg DAILY PO Last administered on 04/21/17 08:13; Admin Dose 81 MG; Start 04/16/17 at 09:00 Ferrous Sulfate (Ferrous Sulfate (Ec)) 325 mg BID PO Last administered on 04/21 08:14; Admin Dose 325 MG; Start 04/16/17 at 09:00 Gabapentin (Neurontin) 300 mg TID PO Last administered on 04/21/17 12:41; Admin Dose 300 MG; Start 04/16/17 at 09:00 Losartan Potassium (Cozaar) 100 mg DAILY PO Last administered on 04/21/17 08: 14; Admin Dose 100 MG; Start 04/16/17 at 09:00 Nifedipine (Procardia Xl) 90 mg DAILY PO Last administered on 04/21/17 08:18 ; Admin Dose 90 MG; Start 04/16/17 at 09:00 Salmeterol Xinafoate/ Fluticasone (Advair 250/50 Diskus) 1 inh BID INH Last administered on 04/21/17 08:13; Admin Dose 1 INH; Start 04/16/17 at 00:30 Tamsulosin HCl (Flomax) 0.4 mg HS PO Last administered on 04/20/17 21:13; Admin Dose 0.4 MG; Start 04/16/17 at 21:00 Thiamine HCl (Vitamin B1) 100 mg DAILY PO Last administered on 04/21/17 08:18 ; Admin Dose 100 MG; Start 04/16/17 at 09:00 Nicotine (Nicoderm 14 Mg/ 24hr) 1 patch DAILY TRANSDERM Last administered on 08:15; Admin Dose 1 PATCH; Start 04/16/17 at 09:00 Hydralazine HCl (Apresoline) 10 mg Q4H PRN IV SBP > 160 Last administered on 06:17; Admin Dose 10 MG; Start 04/16/17 at 00:30 Miscellaneous Information 1 ea NOTE XX ; Start 04/16/17 at 00:40 Glucose (Glutose) 15 gm Q15M PRN PO DECREASED GLUCOSE; Start 04/16/17 at 00:40 Glucose (Glutose) 22.5 gm Q15M PRN PO DECREASED GLUCOSE; Start 04/16/17 at 00: 40 Dextrose (D50w Syringe) 25 ml Q15M PRN IV DECREASED GLUCOSE; Start 04/16/17 at 00:40 Dextrose (D50w Syringe) 50 ml Q15M PRN IV DECREASED GLUCOSE; Start 04/16/17 at 00:40 Glucagon (Glucagen) 1 mg Q15M PRN IM DECREASED GLUCOSE; Start 04/16/17 at 00:40 Glucose (Glutose) 15 gm Q15M PRN BUCCAL DECREASED GLUCOSE; Start 04/16/17 at 00 :40 Miscellaneous Information (Flu Vaccine Previously Dispensed) FLU VACCINE PREVIOU... NOTE PRN XX NOTE; Start 04/16/17 at 01:30 Diagnostic Test (Pha) (Accu-Chek) 1 ea 02 XX ; Start 04/17/17 at 02:00 Magnesium Hydroxide (Milk Of Mag) 30 ml DAILY PRN PO CONSTIPATION Last administered on 04/20/17 18:03; Admin Dose 30 ML; Start 04/16/17 at 13:30 Bisacodyl (Dulcolax Supp) 10 mg DAILY PRN [place] CONSTIPATION Last administered on 04/20/17 21:17; Admin Dose 10 MG; Start 04/18/17 at 11:30 Insulin Glargine (Lantus) 32 unit QHS SC Last administered on 04/20/17 21:21 ; Admin Dose 32 UNIT; Start 04/20/17 at 21:00 Capsaicin (Theragen) 1 applic TID PRN TOP pain Last administered on 04/21/17 15:38; Admin Dose 1 APPLIC; Start 04/20/17 at 15:30 LIVAN VEGAS MD Apr 21, 2017 18:13
[2017-04-21] MEDS: TAMSULOSIN (SR) 0.4 MG CAP PO SCH (20:57)
[2017-04-21] MEDS ORDERED: INSULIN GLARGINE [LANtus] 3 ML PEN SC SCH (21:00)
[2017-04-21] MEDS: INSULIN GLARGINE [LANtus] 3 ML PEN SC SCH (21:01)
[2017-04-21] MEDS: MAGNESIUM HYDROXIDE 30ML CUP PO PRN (21:17)
[2017-04-22 01:41] VITALS: BP 116/58; RESP 18
[2017-04-22] MEDS: ACCU-CHEK XX SCH (02:00)
[2017-04-22] MEDS: FUROSEMIDE 40 MG TAB PO SCH ×2 (05:11→17:37)
[2017-04-22 06:16] LABS: BASOPHILS % 0.2 % (0.0-2.0); EOSINOPHILS # 0.6 10^3/ul (0.0-0.5); HEMATOCRIT 33.9 % (42.0-52.0); HEMOGLOBIN 10.9 g/dl (14.0-18.0); LYMPHOCYTES # 2.7 10^3/ul (0.8-2.9); LYMPHOCYTES % 26.7 % (15.0-51.0); MEAN CORPUSCULAR HEMOGLOBIN 27.9 pg (29.0-33.0); MEAN CORPUSCULAR HGB CONC 32.2 g/dl (32.0-37.0); MEAN CORPUSCULAR VOLUME 86.9 fl (82.0-101.0); MEAN PLATELET VOLUME 9.8 fl (7.4-10.4); MONOCYTE # 1.1 10^3/ul (0.3-0.9); MONOCYTES % 10.7 % (0.0-11.0); NEUTROPHIL # 5.6 10^3/ul (1.6-7.5); NEUTROPHILS % 55.9 % (39.0-77.0); PLATELET COUNT 263 10^3/UL (140-415); RED CELL DISTRIBUTION WIDTH 14.1 % (11.5-14.5)
[2017-04-22 06:49] LABS: CALCIUM 8.7 mg/dl (8.4-10.2); CREATININE 1.05 mg/dl (0.61-1.24); POTASSIUM 4.6 mmol/L (3.5-5.1)
[2017-04-22 07:00] VITALS: BP 151/77; RESP 18
[2017-04-22] MEDS: INSULIN ASPART [NOVOLOG] 3 ML PEN SC SCH ×7 (08:04→20:30)
[2017-04-22] MEDS: FERROUS SULFATE (EC) 325 MG TAB PO SCH ×2 (09:01→20:30)
[2017-04-22] MEDS: SALMETEROL/FLUTICASONE 250/50 INHA INH SCH ×2 (09:01→20:30)
[2017-04-22] MEDS: LOSARTAN 50 MG TAB PO SCH (09:04)
[2017-04-22] MEDS: GABAPENTIN 300 MG CAP PO SCH ×3 (09:04→20:31)
[2017-04-22] MEDS: NIFEdipine (XL) 90 MG TAB PO SCH (09:04)
[2017-04-22] MEDS: ASPIRIN 81 MG TAB PO SCH (09:05)
[2017-04-22] MEDS: THIAMINE 100 MG TAB PO SCH (09:05)
[2017-04-22] MEDS: NICOTINE (14 MG/24 HR) PATCH TRANSDERM SCH (09:10)
[2017-04-22] MEDS: CAPSAICIN 0.025% 60 GM CR TOP PRN (12:38)
[2017-04-22 14:00] VITALS: BP 118/62; RESP 18
--- NOTE | 2017-04-22 16:24 | PN ---
Date/Time of Note Date/Time of Note DATE: 04/22/17 TIME: 16:20 Assessment/Plan VTE Prophylaxis VTE Prophylaxis Intervention: SCD's Lines/Catheters [facility] Saline Lock Urinary Cath still in place: No Assessment/Plan Assessment/Plan 62 yo M with known hx chronic diastolic HF with recurrent pleural effusions warranting drainage admitted for SOB. sp thora however fluid studies not performed. Respiratory status appears improved from admission however BGs labile. Hospitalization notable osborne L shoulder pain. #SOB:repeat CXR with small effusion -As I stated previously, I am not wholly convinced effusions 2/2 CHF as they are in fact exudative and not transudative as previously documented.also appears cytology has only been done once -cont dieresis -repeat thora ordered. reaccumulation of fluid while on diuretics suggests these effusions are not exclusively CHF mediated #labile BG: appreciate DM RN note AM BG closer to goal. cont current lantus #L shoulder pain: clinical exam suggestive of rotator cuff tendonitis/ tendinopathy. XR without fracture topical pain meds, PCP follow up OT eval complete, outpatient OT advised # BPH:Continue Flomax will need outpatient pulm f/u. also if pt had a regular air traffic supervisor possible he could present to him/her when SOB and that thoras could be arranged in outpatient setting instead of pt presenting to the ER 3x in the past 3 mos Exam/Review of Systems Vital Signs Vitals Vital Signs Date Time Temp Pulse Resp B/P Pulse Ox O2 Delivery O2 Flow Rate FiO2 04/22/17 14:00 98.2 90 18 118/62 90 04/21/17 20:00 Nasal Cannula 2.0 Intake and Output 04/21/17 04/21/17 04/22/17 14:59 22:59 06:59 Intake Total 1100 ml 1400 ml Output Total 1100 ml 800 ml Balance 0 ml 600 ml Results Result Diagram: 04/22/17 0557 04/22/17 0557 Results 24 hrs Laboratory Tests Test 04/21/17 17:31 04/21/17 20:55 04/22/17 02:17 04/22/17 05:57 Bedside Glucose 135 181 176 White Blood Count 10.0 Red Blood Count 3.90 L Hemoglobin 10.9 L Hematocrit 33.9 L Mean Corpuscular Volume 86.9 Mean Corpuscular Hemoglobin 27.9 L Mean Corpuscular Hemoglobin Concent 32.2 Red Cell Distribution Width 14.1 Platelet Count 263 Mean Platelet Volume 9.8 Neutrophils % 55.9 Lymphocytes % 26.7 Monocytes % 10.7 Eosinophils % 6.0 Basophils % 0.2 Nucleated Red Blood Cells % 0.0 Neutrophils # 5.6 Lymphocytes # 2.7 Monocytes # 1.1 H Eosinophils # 0.6 H Basophils # 0.0 Nucleated Red Blood Cells # 0.0 Sodium Level 140 Potassium Level 4.6 Chloride Level 96 L Carbon Dioxide Level 37 H Anion Gap 12 Blood Urea Nitrogen 36 H Creatinine 1.05 Glucose Level 182 # Calcium Level 8.7 Test 04/22/17 08:00 04/22/17 12:32 Bedside Glucose 217 161 Medications Medications Current Medications Lorazepam (Ativan) 0.5 mg Q8H PRN PO ANXIETY; Start 04/16/17 at 00:30 Ondansetron HCl (Zofran Inj) 4 mg Q6H PRN IV NAUSEA AND/OR VOMITING; Start 04/16/17 at 00:30 Nitroglycerin (Nitroglycerin (Sl Tab) 0.4 Mg) 1 tab Q5M PRN SL CHEST PAIN; Start 04/16/17 at 00:30 Acetaminophen (Tylenol Tab) 650 mg Q6H PRN PO PAIN LEVEL 1-3 OR FEVER Last administered on 04/21/17 22:05; Admin Dose 650 MG; Start 04/16/17 at 00:30 Morphine Sulfate (morphine) 2 mg Q4H PRN IV PAIN LEVEL 7-10; Start 04/16/17 at 00:30 Aspirin (Aspirin) 81 mg DAILY PO Last administered on 04/22/17 09:05; Admin Dose 81 MG; Start 04/16/17 at 09:00 Ferrous Sulfate (Ferrous Sulfate (Ec)) 325 mg BID PO Last administered on 04/22 09:01; Admin Dose 325 MG; Start 04/16/17 at 09:00 Gabapentin (Neurontin) 300 mg TID PO Last administered on 04/22/17 12:37; Admin Dose 300 MG; Start 04/16/17 at 09:00 Losartan Potassium (Cozaar) 100 mg DAILY PO Last administered on 04/22/17 09: 04; Admin Dose 100 MG; Start 04/16/17 at 09:00 Nifedipine (Procardia Xl) 90 mg DAILY PO Last administered on 04/22/17 09:04 ; Admin Dose 90 MG; Start 04/16/17 at 09:00 Salmeterol Xinafoate/ Fluticasone (Advair 250/50 Diskus) 1 inh BID INH Last administered on 04/22/17 09:01; Admin Dose 1 INH; Start 04/16/17 at 00:30 Tamsulosin HCl (Flomax) 0.4 mg HS PO Last administered on 04/21/17 20:57; Admin Dose 0.4 MG; Start 04/16/17 at 21:00 Thiamine HCl (Vitamin B1) 100 mg DAILY PO Last administered on 04/22/17 09:05 ; Admin Dose 100 MG; Start 04/16/17 at 09:00 Nicotine (Nicoderm 14 Mg/ 24hr) 1 patch DAILY TRANSDERM Last administered on 09:10; Admin Dose 1 PATCH; Start 04/16/17 at 09:00 Hydralazine HCl (Apresoline) 10 mg Q4H PRN IV SBP > 160 Last administered on 06:17; Admin Dose 10 MG; Start 04/16/17 at 00:30 Miscellaneous Information 1 ea NOTE XX ; Start 04/16/17 at 00:40 Glucose (Glutose) 15 gm Q15M PRN PO DECREASED GLUCOSE; Start 04/16/17 at 00:40 Glucose (Glutose) 22.5 gm Q15M PRN PO DECREASED GLUCOSE; Start 04/16/17 at 00: 40 Dextrose (D50w Syringe) 25 ml Q15M PRN IV DECREASED GLUCOSE; Start 04/16/17 at 00:40 Dextrose (D50w Syringe) 50 ml Q15M PRN IV DECREASED GLUCOSE; Start 04/16/17 at 00:40 Glucagon (Glucagen) 1 mg Q15M PRN IM DECREASED GLUCOSE; Start 04/16/17 at 00:40 Glucose (Glutose) 15 gm Q15M PRN BUCCAL DECREASED GLUCOSE; Start 04/16/17 at 00 :40 Miscellaneous Information (Flu Vaccine Previously Dispensed) FLU VACCINE PREVIOU... NOTE PRN XX NOTE; Start 04/16/17 at 01:30 Diagnostic Test (Pha) (Accu-Chek) 1 ea 02 XX ; Start 04/17/17 at 02:00 Magnesium Hydroxide (Milk Of Mag) 30 ml DAILY PRN PO CONSTIPATION Last administered on 04/21/17 21:17; Admin Dose 30 ML; Start 04/16/17 at 13:30 Bisacodyl (Dulcolax Supp) 10 mg DAILY PRN [place] CONSTIPATION Last administered on 04/20/17 21:17; Admin Dose 10 MG; Start 04/18/17 at 11:30 Capsaicin (Theragen) 1 applic TID PRN TOP pain Last administered on 04/22/17 12:38; Admin Dose 1 APPLIC; Start 04/20/17 at 15:30 Insulin Glargine (Lantus) 24 unit QHS SC Last administered on 04/21/17 21:01 ; Admin Dose 24 UNIT; Start 04/21/17 at 21:00 LIVAN VEGAS MD Apr 22, 2017 16:24
[2017-04-22 19:57] VITALS: BP 124/62; RESP 18
[2017-04-22] MEDS: INSULIN GLARGINE [LANtus] 3 ML PEN SC SCH (20:33)
[2017-04-22] MEDS: BISACODYL 10 MG SUPP PR PRN (20:37)
[2017-04-22] MEDS: TAMSULOSIN (SR) 0.4 MG CAP PO SCH (23:55)
[2017-04-23] MEDS: ACCU-CHEK XX SCH (02:00)
[2017-04-23 02:23] VITALS: BP 114/61; PULSE 81; RESP 18
[2017-04-23] MEDS: FUROSEMIDE 40 MG TAB PO SCH ×2 (05:20→17:53)
[2017-04-23 07:23] VITALS: BP 183/85; RESP 19
[2017-04-23] MEDS: NICOTINE (14 MG/24 HR) PATCH TRANSDERM SCH (07:54)
[2017-04-23] MEDS: LOSARTAN 50 MG TAB PO SCH (07:55)
[2017-04-23] MEDS: GABAPENTIN 300 MG CAP PO SCH ×3 (07:55→20:09)
[2017-04-23] MEDS: FERROUS SULFATE (EC) 325 MG TAB PO SCH ×2 (07:55→20:09)
[2017-04-23] MEDS: ASPIRIN 81 MG TAB PO SCH (07:55)
[2017-04-23] MEDS: THIAMINE 100 MG TAB PO SCH (07:55)
[2017-04-23] MEDS: SALMETEROL/FLUTICASONE 250/50 INHA INH SCH ×2 (07:56→20:09)
[2017-04-23] MEDS: NIFEdipine (XL) 90 MG TAB PO SCH (07:56)
[2017-04-23] MEDS: CAPSAICIN 0.025% 60 GM CR TOP PRN ×2 (07:59→20:18)
[2017-04-23] MEDS: MAGNESIUM HYDROXIDE 30ML CUP PO PRN (08:01)
[2017-04-23] MEDS: INSULIN ASPART [NOVOLOG] 3 ML PEN SC SCH ×7 (08:49→20:12)
[2017-04-23 11:00] VITALS: BP 110/58; RESP 22
[2017-04-23] MEDS: ACETAMINOPHEN 325 MG TAB PO PRN (11:35)
[2017-04-23] MEDS: morphine 2 MG INJ IV PRN ×2 (12:37→16:44)
[2017-04-23 15:28] VITALS: BP 107/52; RESP 21
--- NOTE | 2017-04-23 16:30 | PN ---
Date/Time of Note Date/Time of Note DATE: 04/23/17 TIME: 16:29 Assessment/Plan VTE Prophylaxis VTE Prophylaxis Intervention: SCD's Lines/Catheters IV Catheter Type (from Nrs): Saline Lock Urinary Cath still in place: No Assessment/Plan Assessment/Plan 62 yo M with known hx chronic diastolic HF with recurrent pleural effusions warranting drainage admitted for SOB. sp thora however fluid studies not performed. Respiratory status appears improved from admission however BGs labile. Hospitalization notable osborne L shoulder pain. #SOB:repeat CXR with small effusion -As I stated previously, I am not wholly convinced effusions 2/2 CHF as they are in fact exudative and not transudative as previously documented.also appears cytology has only been done once -cont dieresis -repeat thora ordered. reaccumulation of fluid while on diuretics suggests these effusions are not exclusively CHF mediated #labile BG: appreciate DM RN note AM BG closer to goal inc lantus #L shoulder pain: clinical exam suggestive of rotator cuff tendonitis/ tendinopathy. XR without fracture topical pain meds, PCP follow up OT eval complete, outpatient OT advised # BPH:Continue Flomax will need outpatient pulm f/u. also if pt had a regular carpenter/labor possible he could present to him/her when SOB and that thoras could be arranged in outpatient setting instead of pt presenting to the ER 3x in the past 3 mos Subjective 24 Hr Interval Summary Free Text/Dictation thora pushed back to tomorrow by radiology Exam/Review of Systems Vital Signs Vitals Vital Signs Date Time Temp Pulse Resp B/P Pulse Ox O2 Delivery O2 Flow Rate FiO2 04/23/17 15:28 98.3 90 21 107/52 94 04/23/17 11:00 Room Air 04/22/17 20:00 2.0 Intake and Output 04/22/17 04/22/17 04/23/17 15:00 23:00 07:00 Intake Total 800 ml 800 ml Output Total 1800 ml 1225 ml Balance -1000 ml -425 ml Exam nad no mrg dec breath sounds R base no rashes no edema Results Result Diagram: 04/22/17 0557 04/22/17 0557 Results 24 hrs Laboratory Tests Test 04/22/17 17:32 04/22/17 20:29 04/23/17 05:24 04/23/17 08:20 Bedside Glucose 253 H 163 183 Lactate Dehydrogenase 461 Test 04/23/17 12:27 Bedside Glucose 240 H Medications Medications Current Medications Lorazepam (Ativan) 0.5 mg Q8H PRN PO ANXIETY; Start 04/16/17 at 00:30 Ondansetron HCl (Zofran Inj) 4 mg Q6H PRN IV NAUSEA AND/OR VOMITING; Start 04/16/17 at 00:30 Nitroglycerin (Nitroglycerin (Sl Tab) 0.4 Mg) 1 tab Q5M PRN SL CHEST PAIN; Start 04/16/17 at 00:30 Acetaminophen (Tylenol Tab) 650 mg Q6H PRN PO PAIN LEVEL 1-3 OR FEVER Last administered on 04/23/17 11:35; Admin Dose 650 MG; Start 04/16/17 at 00:30 Morphine Sulfate (morphine) 2 mg Q4H PRN IV PAIN LEVEL 7-10 Last administered on 04/23/17 12:37; Admin Dose 2 MG; Start 04/16/17 at 00:30 Aspirin (Aspirin) 81 mg DAILY PO Last administered on 04/23/17 07:55; Admin Dose 81 MG; Start 04/16/17 at 09:00 Ferrous Sulfate (Ferrous Sulfate (Ec)) 325 mg BID PO Last administered on 04/23 07:55; Admin Dose 325 MG; Start 04/16/17 at 09:00 Gabapentin (Neurontin) 300 mg TID PO Last administered on 04/23/17 12:29; Admin Dose 300 MG; Start 04/16/17 at 09:00 Losartan Potassium (Cozaar) 100 mg DAILY PO Last administered on 04/23/17 07: 55; Admin Dose 100 MG; Start 04/16/17 at 09:00 Nifedipine (Procardia Xl) 90 mg DAILY PO Last administered on 04/23/17 07:56 ; Admin Dose 90 MG; Start 04/16/17 at 09:00 Salmeterol Xinafoate/ Fluticasone (Advair 250/50 Diskus) 1 inh BID INH Last administered on 04/23/17 07:56; Admin Dose 1 INH; Start 04/16/17 at 00:30 Tamsulosin HCl (Flomax) 0.4 mg HS PO Last administered on 04/22/17 23:55; Admin Dose 0.4 MG; Start 04/16/17 at 21:00 Thiamine HCl (Vitamin B1) 100 mg DAILY PO Last administered on 04/23/17 07:55 ; Admin Dose 100 MG; Start 04/16/17 at 09:00 Nicotine (Nicoderm 14 Mg/ 24hr) 1 patch DAILY TRANSDERM Last administered on 07:54; Admin Dose 1 PATCH; Start 04/16/17 at 09:00 Hydralazine HCl (Apresoline) 10 mg Q4H PRN IV SBP > 160 Last administered on 06:17; Admin Dose 10 MG; Start 04/16/17 at 00:30 Miscellaneous Information 1 ea NOTE XX ; Start 04/16/17 at 00:40 Glucose (Glutose) 15 gm Q15M PRN PO DECREASED GLUCOSE; Start 04/16/17 at 00:40 Glucose (Glutose) 22.5 gm Q15M PRN PO DECREASED GLUCOSE; Start 04/16/17 at 00: 40 Dextrose (D50w Syringe) 25 ml Q15M PRN IV DECREASED GLUCOSE; Start 04/16/17 at 00:40 Dextrose (D50w Syringe) 50 ml Q15M PRN IV DECREASED GLUCOSE; Start 04/16/17 at 00:40 Glucagon (Glucagen) 1 mg Q15M PRN IM DECREASED GLUCOSE; Start 04/16/17 at 00:40 Glucose (Glutose) 15 gm Q15M PRN BUCCAL DECREASED GLUCOSE; Start 04/16/17 at 00 :40 Miscellaneous Information (Flu Vaccine Previously Dispensed) FLU VACCINE PREVIOU... NOTE PRN XX NOTE; Start 04/16/17 at 01:30 Diagnostic Test (Pha) (Accu-Chek) 1 ea 02 XX ; Start 04/17/17 at 02:00 Magnesium Hydroxide (Milk Of Mag) 30 ml DAILY PRN PO CONSTIPATION Last administered on 04/23/17 08:01; Admin Dose 30 ML; Start 04/16/17 at 13:30 Bisacodyl (Dulcolax Supp) 10 mg DAILY PRN [place] CONSTIPATION Last administered on 04/22/17 20:37; Admin Dose 10 MG; Start 04/18/17 at 11:30 Capsaicin (Theragen) 1 applic TID PRN TOP pain Last administered on 04/23/17 07:59; Admin Dose 1 APPLIC; Start 04/20/17 at 15:30 Insulin Glargine (Lantus) 24 unit QHS SC Last administered on 04/22/17 20:33 ; Admin Dose 24 UNIT; Start 04/21/17 at 21:00 LIVAN VEGAS MD Apr 23, 2017 16:30
[2017-04-23 19:45] VITALS: BP 123/64; RESP 18
[2017-04-23] MEDS: TAMSULOSIN (SR) 0.4 MG CAP PO SCH (20:09)
[2017-04-23] MEDS: BISACODYL 10 MG SUPP PR PRN (20:18)
[2017-04-23] MEDS ORDERED: INSULIN GLARGINE [LANtus] 3 ML PEN SC SCH (21:00)
[2017-04-24 01:27] VITALS: BP 148/71; RESP 18
[2017-04-24] MEDS: ACCU-CHEK XX SCH (01:46)
[2017-04-24] MEDS: morphine 2 MG INJ IV PRN (01:57)
[2017-04-24] MEDS: FUROSEMIDE 40 MG TAB PO SCH ×2 (06:36→17:17)
[2017-04-24 07:16] VITALS: BP 135/69; RESP 18
[2017-04-24] MEDS: NICOTINE (14 MG/24 HR) PATCH TRANSDERM SCH (08:51)
[2017-04-24] MEDS: NIFEdipine (XL) 90 MG TAB PO SCH (08:52)
[2017-04-24] MEDS: SALMETEROL/FLUTICASONE 250/50 INHA INH SCH ×2 (08:53→20:32)
[2017-04-24] MEDS: GABAPENTIN 300 MG CAP PO SCH ×3 (08:54→20:33)
[2017-04-24] MEDS: FERROUS SULFATE (EC) 325 MG TAB PO SCH ×2 (08:54→20:33)
[2017-04-24] MEDS: THIAMINE 100 MG TAB PO SCH (08:54)
[2017-04-24] MEDS: ASPIRIN 81 MG TAB PO SCH (08:54)
[2017-04-24] MEDS: LOSARTAN 50 MG TAB PO SCH (08:55)
[2017-04-24] MEDS: CAPSAICIN 0.025% 60 GM CR TOP PRN (08:58)
[2017-04-24] MEDS: INSULIN ASPART [NOVOLOG] 3 ML PEN SC SCH ×7 (09:02→20:36)
[2017-04-24] MEDS: MAGNESIUM HYDROXIDE 30ML CUP PO PRN (09:16)
[2017-04-24] MEDS ORDERED: LIDOCAINE 1% (MPF) 5 ML VIAL ONE (11:46)
--- NOTE | 2017-04-24 12:13 | RADRPT ---
PROCEDURE: US guided right thoracentesis. CLINICAL INDICATION: Recurrent right pleural effusion. TECHNIQUE: Prior to the procedure, informed consent was obtained. The risks, benefits, and alternatives were e xplained to the patient, including but not limited to bleeding, infection, pain, visceral or vascula r damage, shock, pneumothorax, chest tube placement, air embolism, and . The patient understoo d the risks and the alternatives and wished to proceed with the study. Informed written consent was obtained. A procedural pause was performed. The patient's name, date of , and procedure to be performed were verified. Ultrasound of the right hemithorax was performed in the axial and sagittal planes. A right pleural e ffusion is noted. Utilizing ultrasound guidance, optimal location for entry to the pleural cavity wa s ascertained. The overlying skin was prepped and draped in the usual sterile fashion. Approximate ly 10 ml of 1% Xylocaine was injected locally for pain control. Using ultrasound guidance, a 5-Fren ch Yueh catheter was introduced into the right pleural space without difficulty. Fluid was aspirated . COMPARISON: 04/17/2017 FINDINGS: Initial ultrasound demonstrates fluid in the right pleural space. Approximately 1.2 liters of serou s fluid was aspirated and sent to the laboratory. IMPRESSION: 1. Satisfactory ultrasound-guided right thoracentesis. RPTAT: QQ .Khushbu Donahue MD, MD Date Time Electronically viewed and signed by .Khushbu Donahue MD, MD on 04/24/2017 12:13 .T/
--- NOTE | 2017-04-24 12:36 | RADRPT ---
PROCEDURE: XR Chest. CLINICAL INDICATION: Post thoracentesis TECHNIQUE: Single frontal chest x-ray. COMPARISON: 04/20/2017 FINDINGS: Since the prior study, there has been decreased size of the right pleural effusion. There is no pneu mothorax. There is mild bibasilar atelectasis. The heart is prominent, unchanged. Mediastinal conto urs are unchanged. There are no acute fractures. There is degenerative disc disease within the thora cic spine. RPTAT: QQ IMPRESSION: 1. Decreased size of the right pleural effusion post recent thoracentesis. No significant pneumothor ax. 2. Bibasilar atelectasis. 3. Cardiomegaly. .Khushbu Donahue MD, MD Date Time Electronically viewed and signed by .Khushbu Donahue MD, on 04/24/2017 12:36 .T/
[2017-04-24] MEDS ORDERED: POLYETHYLENE GLYCOL 17 GM PACKET PO STA (12:57)
[2017-04-24] MEDS ORDERED: POLYETHYLENE GLYCOL 17 GM PACKET NGT PRN (13:00)
[2017-04-24 13:09] VITALS: BP 100/53; RESP 18
[2017-04-24 14:28] LABS: FLD MN% 97.5 %; FLD PMN% 2.5 %; FLD RBC 1000 /uL; FLD WBC 247 /cmm
[2017-04-24 14:35] LABS: FLUID LD 409 U/L; FLUID TOTAL PROTEIN 3.3 g/dl; FLUID TYPE THORACENTESIS FLUID
[2017-04-24 14:39] LABS: FLUID GLUCOSE 185 mg/dl; FLUID TYPE THORACENTESIS FLUID
[2017-04-24 15:17] LABS: FLD CLARITY HAZY; FLD COLOR YELLOW; FLD TYPE PLEURAL
[2017-04-24] MEDS: BISACODYL 10 MG SUPP PR PRN (17:03)
--- NOTE | 2017-04-24 17:14 | PN ---
Date/Time of Note Date/Time of Note DATE: 04/24/17 TIME: 17:14 Assessment/Plan VTE Prophylaxis VTE Prophylaxis Intervention: SCD's Lines/Catheters IV Catheter Type (from Nrs): Saline Lock Urinary Cath still in place: No Assessment/Plan Assessment/Plan 62 yo M with known hx chronic diastolic HF with recurrent pleural effusions warranting drainage admitted for SOB. sp thora however fluid studies not performed. Respiratory status appears improved from admission however BGs labile. Hospitalization notable osborne L shoulder pain. #SOB: sp thora with 1200 mL EXUDATIVE fluid removed. -As I stated previously, I am not wholly convinced effusions 2/2 CHF as they are in fact exudative and not transudative as previously documented.also appears cytology has only been done once. exudative now -cont dieresis -await cytology and cultures #labile BG: appreciate DM RN note AM BG closer to goal inc lantus again #L shoulder pain: clinical exam suggestive of rotator cuff tendonitis/ tendinopathy. XR without fracture topical pain meds, PCP follow up OT eval complete, outpatient OT advised # BPH:Continue Flomax will need outpatient pulm f/u. also if pt had a regular humanities and languages professor possible he could present to him/her when SOB and that thoras could be arranged in outpatient setting instead of pt presenting to the ER 3x in the past 3 mos dispo pending thora culture and cytology Subjective 24 Hr Interval Summary Free Text/Dictation eating dinner. comfortable Exam/Review of Systems Vital Signs Vitals Vital Signs Date Time Temp Pulse Resp B/P Pulse Ox O2 Delivery O2 Flow Rate FiO2 04/24/17 13:09 98.4 93 18 100/53 95 04/23/17 11:00 Room Air 04/22/17 20:00 2.0 Intake and Output 04/23/17 04/23/17 04/24/17 15:00 23:00 07:00 Intake Total 1080 ml 1620 ml Output Total 1300 ml 1550 ml Balance -220 ml 70 ml Exam nad coarse breath sounds no mrg abd soft no rashes EXUDATIVE EFFUSION. LDH high Results Result Diagram: 04/22/17 0557 04/22/17 0557 Results 24 hrs Laboratory Tests Test 04/23/17 17:50 04/23/17 20:02 04/24/17 08:18 04/24/17 11:30 Bedside Glucose 149 175 177 Body Fluid Type THORACENTESIS FLUID Body Fluid Volume 1100.0 Body Fluid Color YELLOW Body Fluid Appearance HAZY Body Fluid WBC 247 Body Fluid RBC (Auto) 1000 Body Fluid Polynuclear WBCs (%) 2.5 Body Fluid Mononuclear Cells % Auto 97.5 Body Fluid Glucose 185 Body Fluid Total Protein 3.3 Body Fluid Lactate Dehydrogenase 409 Test 04/24/17 12:40 04/24/17 17:09 Bedside Glucose 192 263 H Medications Medications Current Medications Lorazepam (Ativan) 0.5 mg Q8H PRN PO ANXIETY; Start 04/16/17 at 00:30 Ondansetron HCl (Zofran Inj) 4 mg Q6H PRN IV NAUSEA AND/OR VOMITING; Start 04/16/17 at 00:30 Nitroglycerin (Nitroglycerin (Sl Tab) 0.4 Mg) 1 tab Q5M PRN SL CHEST PAIN; Start 04/16/17 at 00:30 Acetaminophen (Tylenol Tab) 650 mg Q6H PRN PO PAIN LEVEL 1-3 OR FEVER Last administered on 04/23/17 11:35; Admin Dose 650 MG; Start 04/16/17 at 00:30 Morphine Sulfate (morphine) 2 mg Q4H PRN IV PAIN LEVEL 7-10 Last administered on 04/24/17 01:57; Admin Dose 2 MG; Start 04/16/17 at 00:30 Aspirin (Aspirin) 81 mg DAILY PO Last administered on 04/24/17 08:54; Admin Dose 81 MG; Start 04/16/17 at 09:00 Ferrous Sulfate (Ferrous Sulfate (Ec)) 325 mg BID PO Last administered on 04/24 08:54; Admin Dose 325 MG; Start 04/16/17 at 09:00 Gabapentin (Neurontin) 300 mg TID PO Last administered on 04/24/17 12:47; Admin Dose 300 MG; Start 04/16/17 at 09:00 Losartan Potassium (Cozaar) 100 mg DAILY PO Last administered on 04/24/17 08: 55; Admin Dose 100 MG; Start 04/16/17 at 09:00 Nifedipine (Procardia Xl) 90 mg DAILY PO Last administered on 04/24/17 08:52 ; Admin Dose 90 MG; Start 04/16/17 at 09:00 Salmeterol Xinafoate/ Fluticasone (Advair 250/50 Diskus) 1 inh BID INH Last administered on 04/24/17 08:53; Admin Dose 1 INH; Start 04/16/17 at 00:30 Tamsulosin HCl (Flomax) 0.4 mg HS PO Last administered on 04/23/17 20:09; Admin Dose 0.4 MG; Start 04/16/17 at 21:00 Thiamine HCl (Vitamin B1) 100 mg DAILY PO Last administered on 04/24/17 08:54 ; Admin Dose 100 MG; Start 04/16/17 at 09:00 Nicotine (Nicoderm 14 Mg/ 24hr) 1 patch DAILY TRANSDERM Last administered on 08:51; Admin Dose 1 PATCH; Start 04/16/17 at 09:00 Hydralazine HCl (Apresoline) 10 mg Q4H PRN IV SBP > 160 Last administered on 06:17; Admin Dose 10 MG; Start 04/16/17 at 00:30 Miscellaneous Information 1 ea NOTE XX ; Start 04/16/17 at 00:40 Glucose (Glutose) 15 gm Q15M PRN PO DECREASED GLUCOSE; Start 04/16/17 at 00:40 Glucose (Glutose) 22.5 gm Q15M PRN PO DECREASED GLUCOSE; Start 04/16/17 at 00: 40 Dextrose (D50w Syringe) 25 ml Q15M PRN IV DECREASED GLUCOSE; Start 04/16/17 at 00:40 Dextrose (D50w Syringe) 50 ml Q15M PRN IV DECREASED GLUCOSE; Start 04/16/17 at 00:40 Glucagon (Glucagen) 1 mg Q15M PRN IM DECREASED GLUCOSE; Start 04/16/17 at 00:40 Glucose (Glutose) 15 gm Q15M PRN BUCCAL DECREASED GLUCOSE; Start 04/16/17 at 00 :40 Miscellaneous Information (Flu Vaccine Previously Dispensed) FLU VACCINE PREVIOU... NOTE PRN XX NOTE; Start 04/16/17 at 01:30 Diagnostic Test (Pha) (Accu-Chek) 1 ea 02 XX ; Start 04/17/17 at 02:00 Magnesium Hydroxide (Milk Of Mag) 30 ml DAILY PRN PO CONSTIPATION Last administered on 04/24/17 09:16; Admin Dose 30 ML; Start 04/16/17 at 13:30 Bisacodyl (Dulcolax Supp) 10 mg DAILY PRN [place] CONSTIPATION Last administered on 04/24/17 17:03; Admin Dose 10 MG; Start 04/18/17 at 11:30 Capsaicin (Theragen) 1 applic TID PRN TOP pain Last administered on 04/24/17 08:58; Admin Dose 1 APPLIC; Start 04/20/17 at 15:30 Insulin Glargine (Lantus) 28 unit QHS SC Last administered on 04/23/17 20:12 ; Admin Dose 28 UNIT; Start 04/23/17 at 21:00 Polyethylene Glycol (Miralax) 17 gm DAILY PRN [place] CONSTIPATION; Start at 13:00 LIVAN VEGAS MD Apr 24, 2017 17:14
[2017-04-24] MEDS: ACETAMINOPHEN 325 MG TAB PO PRN (19:37)
[2017-04-24 20:30] VITALS: BP 126/65; PULSE 102; RESP 19
[2017-04-24] MEDS: TAMSULOSIN (SR) 0.4 MG CAP PO SCH (20:32)
[2017-04-24] MEDS: INSULIN GLARGINE [LANtus] 3 ML PEN SC SCH (20:42)
[2017-04-25] MEDS: ACCU-CHEK XX SCH (02:00)
[2017-04-25 02:06] VITALS: BP 130/60; PULSE 97; RESP 19
[2017-04-25] MEDS: FUROSEMIDE 40 MG TAB PO SCH ×2 (06:01→17:30)
[2017-04-25 07:48] VITALS: BP 125/60; PULSE 93; RESP 18
[2017-04-25] MEDS: SALMETEROL/FLUTICASONE 250/50 INHA INH SCH ×2 (08:06→20:32)
[2017-04-25] MEDS: GABAPENTIN 300 MG CAP PO SCH ×3 (08:06→20:32)
[2017-04-25] MEDS: NIFEdipine (XL) 90 MG TAB PO SCH (08:07)
[2017-04-25] MEDS: THIAMINE 100 MG TAB PO SCH (08:07)
[2017-04-25] MEDS: FERROUS SULFATE (EC) 325 MG TAB PO SCH ×2 (08:07→20:32)
[2017-04-25] MEDS: ASPIRIN 81 MG TAB PO SCH (08:07)
[2017-04-25] MEDS: LOSARTAN 50 MG TAB PO SCH (08:08)
[2017-04-25] MEDS: NICOTINE (14 MG/24 HR) PATCH TRANSDERM SCH (08:08)
[2017-04-25] MEDS: INSULIN ASPART [NOVOLOG] 3 ML PEN SC SCH ×7 (08:17→20:35)
[2017-04-25] MEDS: CAPSAICIN 0.025% 60 GM CR TOP PRN ×2 (10:26→20:32)
[2017-04-25] MEDS: morphine 2 MG INJ IV PRN ×2 (11:57→22:27)
[2017-04-25 14:46] VITALS: BP 117/59; PULSE 88; RESP 18
--- NOTE | 2017-04-25 18:57 | PN ---
Date/Time of Note Date/Time of Note DATE: 04/25/17 TIME: 18:56 Assessment/Plan VTE Prophylaxis VTE Prophylaxis Intervention: SCD's Lines/Catheters IV Catheter Type (from Nrs): Saline Lock Urinary Cath still in place: No Assessment/Plan Assessment/Plan 62 yo M with known hx chronic diastolic HF with recurrent pleural effusions warranting drainage admitted for SOB. sp thora however fluid studies not performed. Respiratory status appears improved from admission however BGs labile. Hospitalization notable for L shoulder pain. #SOB: sp thora with 1200 mL EXUDATIVE fluid removed. -As I stated previously, I am not wholly convinced effusions 2/2 CHF as they are in fact exudative and not transudative as previously documented.also appears cytology has only been done once. exudative now -cont dieresis -await cytology and cultures #labile BG: appreciate DM RN note AM BG closer to goal inc lantus again #L shoulder pain: clinical exam suggestive of rotator cuff tendonitis/ tendinopathy. XR without fracture topical pain meds, PCP follow up OT eval complete, outpatient OT advised # BPH:Continue Flomax will need outpatient pulm f/u. also if pt had a regular news agent possible he could present to him/her when SOB and that thoras could be arranged in outpatient setting instead of pt presenting to the ER 3x in the past 3 mos dispo pending thora culture and cytology Subjective 24 Hr Interval Summary Free Text/Dictation sleeping Exam/Review of Systems Vital Signs Vitals Vital Signs Date Time Temp Pulse Resp B/P Pulse Ox O2 Delivery O2 Flow Rate FiO2 04/25/17 14:46 88 18 117/59 94 Room Air 04/25/17 07:48 98.3 04/22/17 20:00 2.0 Intake and Output 04/24/17 04/24/17 04/25/17 15:00 23:00 07:00 Intake Total 1360 ml 1640 ml Output Total 1750 ml 800 ml Balance -390 ml 840 ml Exam nad resp nonlabored no abd distension no rashes no edema Results Result Diagram: 04/22/17 0557 04/22/17 0557 Results 24 hrs Laboratory Tests Test 04/24/17 20:35 04/25/17 08:10 04/25/17 11:59 04/25/17 17:29 Bedside Glucose 169 172 122 184 Medications Medications Current Medications Lorazepam (Ativan) 0.5 mg Q8H PRN PO ANXIETY; Start 04/16/17 at 00:30 Ondansetron HCl (Zofran Inj) 4 mg Q6H PRN IV NAUSEA AND/OR VOMITING; Start 04/16/17 at 00:30 Nitroglycerin (Nitroglycerin (Sl Tab) 0.4 Mg) 1 tab Q5M PRN SL CHEST PAIN; Start 04/16/17 at 00:30 Acetaminophen (Tylenol Tab) 650 mg Q6H PRN PO PAIN LEVEL 1-3 OR FEVER Last administered on 04/24/17 19:37; Admin Dose 650 MG; Start 04/16/17 at 00:30 Morphine Sulfate (morphine) 2 mg Q4H PRN IV PAIN LEVEL 7-10 Last administered on 04/25/17 11:57; Admin Dose 2 MG; Start 04/16/17 at 00:30 Aspirin (Aspirin) 81 mg DAILY PO Last administered on 04/25/17 08:07; Admin Dose 81 MG; Start 04/16/17 at 09:00 Ferrous Sulfate (Ferrous Sulfate (Ec)) 325 mg BID PO Last administered on 04/25 08:07; Admin Dose 325 MG; Start 04/16/17 at 09:00 Gabapentin (Neurontin) 300 mg TID PO Last administered on 04/25/17 12:00; Admin Dose 300 MG; Start 04/16/17 at 09:00 Losartan Potassium (Cozaar) 100 mg DAILY PO Last administered on 04/25/17 08: 08; Admin Dose 100 MG; Start 04/16/17 at 09:00 Nifedipine (Procardia Xl) 90 mg DAILY PO Last administered on 04/25/17 08:07 ; Admin Dose 90 MG; Start 04/16/17 at 09:00 Salmeterol Xinafoate/ Fluticasone (Advair 250/50 Diskus) 1 inh BID INH Last administered on 04/25/17 08:06; Admin Dose 1 INH; Start 04/16/17 at 00:30 Tamsulosin HCl (Flomax) 0.4 mg HS PO Last administered on 04/24/17 20:32; Admin Dose 0.4 MG; Start 04/16/17 at 21:00 Thiamine HCl (Vitamin B1) 100 mg DAILY PO Last administered on 04/25/17 08:07 ; Admin Dose 100 MG; Start 04/16/17 at 09:00 Nicotine (Nicoderm 14 Mg/ 24hr) 1 patch DAILY TRANSDERM Last administered on 08:08; Admin Dose 1 PATCH; Start 04/16/17 at 09:00 Hydralazine HCl (Apresoline) 10 mg Q4H PRN IV SBP > 160 Last administered on 06:17; Admin Dose 10 MG; Start 04/16/17 at 00:30 Miscellaneous Information 1 ea NOTE XX ; Start 04/16/17 at 00:40 Glucose (Glutose) 15 gm Q15M PRN PO DECREASED GLUCOSE; Start 04/16/17 at 00:40 Glucose (Glutose) 22.5 gm Q15M PRN PO DECREASED GLUCOSE; Start 04/16/17 at 00: 40 Dextrose (D50w Syringe) 25 ml Q15M PRN IV DECREASED GLUCOSE; Start 04/16/17 at 00:40 Dextrose (D50w Syringe) 50 ml Q15M PRN IV DECREASED GLUCOSE; Start 04/16/17 at 00:40 Glucagon (Glucagen) 1 mg Q15M PRN IM DECREASED GLUCOSE; Start 04/16/17 at 00:40 Glucose (Glutose) 15 gm Q15M PRN BUCCAL DECREASED GLUCOSE; Start 04/16/17 at 00 :40 Miscellaneous Information (Flu Vaccine Previously Dispensed) FLU VACCINE PREVIOU... NOTE PRN XX NOTE; Start 04/16/17 at 01:30 Diagnostic Test (Pha) (Accu-Chek) 1 ea 02 XX ; Start 04/17/17 at 02:00 Magnesium Hydroxide (Milk Of Mag) 30 ml DAILY PRN PO CONSTIPATION Last administered on 04/24/17 09:16; Admin Dose 30 ML; Start 04/16/17 at 13:30 Bisacodyl (Dulcolax Supp) 10 mg DAILY PRN [place] CONSTIPATION Last administered on 04/24/17 17:03; Admin Dose 10 MG; Start 04/18/17 at 11:30 Capsaicin (Theragen) 1 applic TID PRN TOP pain Last administered on 04/25/17 10:26; Admin Dose 1 APPLIC; Start 04/20/17 at 15:30 Polyethylene Glycol (Miralax) 17 gm DAILY PRN NGT CONSTIPATION; Start at 13:00 Insulin Glargine (Lantus) 32 unit QHS SC Last administered on 04/24/17t 20:42 ; Admin Dose 32 UNIT; Start 04/24/17 at 21:00 LIVAN VEGAS MD Apr 25, 2017 18:57
[2017-04-25 19:55] VITALS: BP 143/66; RESP 18
[2017-04-25] MEDS: TAMSULOSIN (SR) 0.4 MG CAP PO SCH (20:32)
[2017-04-25] MEDS: INSULIN GLARGINE [LANtus] 3 ML PEN SC SCH (20:39)
[2017-04-26 01:58] VITALS: BP 149/70; RESP 20
[2017-04-26] MEDS: ACCU-CHEK XX SCH (02:00)
[2017-04-26] MEDS: FUROSEMIDE 40 MG TAB PO SCH ×2 (05:29→17:44)
[2017-04-26 07:58] VITALS: BP 164/68; RESP 18
[2017-04-26] MEDS: INSULIN ASPART [NOVOLOG] 3 ML PEN SC SCH ×7 (08:15→20:47)
[2017-04-26] MEDS: morphine 2 MG INJ IV PRN ×2 (08:28→22:53)
[2017-04-26] MEDS: NIFEdipine (XL) 90 MG TAB PO SCH (08:30)
[2017-04-26] MEDS: GABAPENTIN 300 MG CAP PO SCH ×3 (08:30→20:47)
[2017-04-26] MEDS: THIAMINE 100 MG TAB PO SCH (08:30)
[2017-04-26] MEDS: ASPIRIN 81 MG TAB PO SCH (08:30)
[2017-04-26] MEDS: LOSARTAN 50 MG TAB PO SCH (08:30)
[2017-04-26] MEDS: NICOTINE (14 MG/24 HR) PATCH TRANSDERM SCH (08:30)
[2017-04-26] MEDS: FERROUS SULFATE (EC) 325 MG TAB PO SCH ×2 (08:30→20:47)
[2017-04-26] MEDS: SALMETEROL/FLUTICASONE 250/50 INHA INH SCH ×2 (08:31→20:47)
[2017-04-26 13:31] VITALS: BP 109/59; RESP 20
--- NOTE | 2017-04-26 15:32 | PN ---
Date/Time of Note Date/Time of Note DATE: 04/26/17 TIME: 15:32 Assessment/Plan VTE Prophylaxis VTE Prophylaxis Intervention: SCD's Lines/Catheters IV C[facility]ter Type (from [facility]): Saline Lock Urinary Cath still in place: No Assessment/Plan Chief Complaint/Hosp Course Subjective No acute complaints Objective Physical exam General: Patient is laying in bed and answers questions appropriately Mentation: Patient is alert and oriented 4, Head: Normocephalic atraumatic Eyes: EOMI, pupils reactive to light Neck: Supple, nontender, midline Respiratory: coarse to auscultation bilaterally Cardiovascular: regular rate, no obvious murmurs Gastrointestinal: non-tender to palpation, bowel sounds heard. Neurological: Moves all extremities spontaneously Skin: No new skin lesions Assessment/Plan 62 yo M with known hx chronic diastolic HF with recurrent pleural effusions warranting drainage admitted for SOB. SOB: sp thora with 1200 mL EXUDATIVE fluid removed. -Await cytology and cultures -Given history of recurrent effusions, pulmonology consulted, questionable etiology -Continue meds labile BG: appreciate DM RN note AM BG closer to goal inc lantus again L shoulder pain: clinical exam suggestive of rotator cuff tendonitis/ tendinopathy. XR without fracture topical pain meds, PCP follow up OT eval complete, outpatient OT advised BPH:Continue Flomax will need outpatient pulm f/u. also if pt had a regular pan dumper possible he could present to him/her when SOB and that thoras could be arranged in outpatient setting instead of pt presenting to the ER 3x in the past 3 mos dispo pending thora culture and cytology, with pulm consult Problems: Exam/Review of Systems Vital Signs Vitals Vital Signs Date Time Temp Pulse Resp B/P Pulse Ox O2 Delivery O2 Flow Rate FiO2 04/26/17 13:31 97.6 89 20 109/59 91 04/25/17 14:46 Room Air 04/22/17 20:00 2.0 Intake and Output 04/25/17 04/25/17 04/26/17 15:00 23:00 07:00 Intake Total 720 ml 1000 ml Output Total 1200 ml 1100 ml Balance -480 ml -100 ml Results Result Diagram: 04/22/17 0557 04/22/17 0557 Results 24 hrs Laboratory Tests Test 04/25/17 17:29 04/25/17 20:34 04/26/17 08:17 04/26/17 12:26 Bedside Glucose 184 112 138 191 Medications Medications Current Medications Lorazepam (Ativan) 0.5 mg Q8H PRN PO ANXIETY; Start 04/16/17 at 00:30 Ondansetron HCl (Zofran Inj) 4 mg Q6H PRN IV NAUSEA AND/OR VOMITING; Start 04/16/17 at 00:30 Nitroglycerin (Nitroglycerin (Sl Tab) 0.4 Mg) 1 tab Q5M PRN SL CHEST PAIN; Start 04/16/17 at 00:30 Acetaminophen (Tylenol Tab) 650 mg Q6H PRN PO PAIN LEVEL 1-3 OR FEVER Last administered on 04/24/17 19:37; Admin Dose 650 MG; Start 04/16/17 at 00:30 Morphine Sulfate (morphine) 2 mg Q4H PRN IV PAIN LEVEL 7-10 Last administered on 04/26/17 08:28; Admin Dose 2 MG; Start 04/16/17 at 00:30 Aspirin (Aspirin) 81 mg DAILY PO Last administered on 04/26/17 08:30; Admin Dose 81 MG; Start 04/16/17 at 09:00 Ferrous Sulfate (Ferrous Sulfate (Ec)) 325 mg BID PO Last administered on 04/26 08:30; Admin Dose 325 MG; Start 04/16/17 at 09:00 Gabapentin (Neurontin) 300 mg TID PO Last administered on 04/26/17 12:38; Admin Dose 300 MG; Start 04/16/17 at 09:00 Losartan Potassium (Cozaar) 100 mg DAILY PO Last administered on 04/26/17 08: 30; Admin Dose 100 MG; Start 04/16/17 at 09:00 Nifedipine (Procardia Xl) 90 mg DAILY PO Last administered on 04/26/17 08:30 ; Admin Dose 90 MG; Start 04/16/17 at 09:00 Salmeterol Xinafoate/ Fluticasone (Advair 250/50 Diskus) 1 inh BID INH Last administered on 04/26/17 08:31; Admin Dose 1 INH; Start 04/16/17 at 00:30 Tamsulosin HCl (Flomax) 0.4 mg HS PO Last administered on 04/25/17 20:32; Admin Dose 0.4 MG; Start 04/16/17 at 21:00 Thiamine HCl (Vitamin B1) 100 mg DAILY PO Last administered on 04/26/17 08:30 ; Admin Dose 100 MG; Start 04/16/17 at 09:00 Nicotine (Nicoderm 14 Mg/ 24hr) 1 patch DAILY TRANSDERM Last administered on 08:30; Admin Dose 1 PATCH; Start 04/16/17 at 09:00 Hydralazine HCl (Apresoline) 10 mg Q4H PRN IV SBP > 160 Last administered on 06:17; Admin Dose 10 MG; Start 04/16/17 at 00:30 Miscellaneous Information 1 ea NOTE XX ; Start 04/16/17 at 00:40 Glucose (Glutose) 15 gm Q15M PRN PO DECREASED GLUCOSE; Start 04/16/17 at 00:40 Glucose (Glutose) 22.5 gm Q15M PRN PO DECREASED GLUCOSE; Start 04/16/17 at 00: 40 Dextrose (D50w Syringe) 25 ml Q15M PRN IV DECREASED GLUCOSE; Start 04/16/17 at 00:40 Dextrose (D50w Syringe) 50 ml Q15M PRN IV DECREASED GLUCOSE; Start 04/16/17 at 00:40 Glucagon (Glucagen) 1 mg Q15M PRN IM DECREASED GLUCOSE; Start 04/16/17 at 00:40 Glucose (Glutose) 15 gm Q15M PRN BUCCAL DECREASED GLUCOSE; Start 04/16/17 at 00 :40 Miscellaneous Information (Flu Vaccine Previously Dispensed) FLU VACCINE PREVIOU... NOTE PRN XX NOTE; Start 04/16/17 at 01:30 Diagnostic Test (Pha) (Accu-Chek) 1 ea 02 XX ; Start 04/17/17 at 02:00 Magnesium Hydroxide (Milk Of Mag) 30 ml DAILY PRN PO CONSTIPATION Last administered on 04/24/17 09:16; Admin Dose 30 ML; Start 04/16/17 at 13:30 Bisacodyl (Dulcolax Supp) [address] CONSTIPATION Last administered on 04/24/17 17:03; Admin Dose 10 MG; Start 04/18/17 at 11:30 Capsaicin (Theragen) 1 applic TID PRN TOP pain Last administered on 04/25/17 20:32; Admin Dose 1 APPLIC; Start 04/20/17 at 15:30 Polyethylene Glycol (Miralax) 17 gm DAILY PRN NGT CONSTIPATION Last administered on 04/26/17 11:43; Admin Dose 17 GM; Start 04/24/17 at 13:00 Insulin Glargine (Lantus) 32 unit QHS SC Last administered on 04/25/17 20:39 ; Admin Dose 32 UNIT; Start 04/24/17 at 21:00 MOI HAIRSTON Apr 26, 2017 15:32
[2017-04-26 19:28] VITALS: BP 136/63; RESP 18
[2017-04-26] MEDS: CAPSAICIN 0.025% 60 GM CR TOP PRN (20:47)
[2017-04-26] MEDS: TAMSULOSIN (SR) 0.4 MG CAP PO SCH (20:47)
[2017-04-26] MEDS: INSULIN GLARGINE [LANtus] 3 ML PEN SC SCH (20:51)
[2017-04-26] MEDS: MAGNESIUM HYDROXIDE 30ML CUP PO PRN (20:58)
[2017-04-26] MEDS: ALBUTEROL/IPRATROPIUM (NEB) 3 ML AMP HHN PRN (21:49)
[2017-04-27] MEDS: ACCU-CHEK XX SCH (02:00)
[2017-04-27 02:30] VITALS: BP 130/63; PULSE 90; RESP 18
[2017-04-27] MEDS: FUROSEMIDE 40 MG TAB PO SCH ×2 (05:23→17:24)
[2017-04-27 06:35] LABS: BASOPHILS % 0.3 % (0.0-2.0); EOSINOPHILS # 0.4 10^3/ul (0.0-0.5); EOSINOPHILS % 3.6 % (0.0-7.0); HEMATOCRIT 32.3 % (42.0-52.0); HEMOGLOBIN 10.3 g/dl (14.0-18.0); LYMPHOCYTES # 1.9 10^3/ul (0.8-2.9); LYMPHOCYTES % 18.9 % (15.0-51.0); MEAN CORPUSCULAR HEMOGLOBIN 27.7 pg (29.0-33.0); MEAN CORPUSCULAR HGB CONC 31.9 g/dl (32.0-37.0); MEAN CORPUSCULAR VOLUME 86.8 fl (82.0-101.0); MEAN PLATELET VOLUME 9.9 fl (7.4-10.4); MONOCYTE # 1.2 10^3/ul (0.3-0.9); MONOCYTES % 12.3 % (0.0-11.0); NEUTROPHIL # 6.3 10^3/ul (1.6-7.5); NEUTROPHILS % 64.2 % (39.0-77.0); PLATELET COUNT 236 10^3/UL (140-415); RED BLOOD COUNT 3.72 10^6/ul (4.70-6.10); RED CELL DISTRIBUTION WIDTH 13.8 % (11.5-14.5); WHITE BLOOD COUNT 9.9 10^3/ul (4.8-10.8)
[2017-04-27 07:13] LABS: CALCIUM 8.7 mg/dl (8.4-10.2); CREATININE 0.97 mg/dl (0.61-1.24); MAGNESIUM 2.1 mg/dl (1.7-2.5); PHOSPHORUS 4.5 mg/dl (2.5-4.9); POTASSIUM 4.4 mmol/L (3.5-5.1)
[2017-04-27 07:20] VITALS: BP 163/86; RESP 18
[2017-04-27] MEDS: INSULIN ASPART [NOVOLOG] 3 ML PEN SC SCH ×7 (08:10→21:00)
[2017-04-27] MEDS: FERROUS SULFATE (EC) 325 MG TAB PO SCH ×2 (08:12→21:03)
[2017-04-27] MEDS: THIAMINE 100 MG TAB PO SCH (08:12)
[2017-04-27] MEDS: ASPIRIN 81 MG TAB PO SCH (08:12)
[2017-04-27] MEDS: GABAPENTIN 300 MG CAP PO SCH ×3 (08:12→21:02)
[2017-04-27] MEDS: NIFEdipine (XL) 90 MG TAB PO SCH (08:13)
[2017-04-27] MEDS: SALMETEROL/FLUTICASONE 250/50 INHA INH SCH ×2 (08:13→21:02)
[2017-04-27] MEDS: LOSARTAN 50 MG TAB PO SCH (08:13)
[2017-04-27] MEDS: NICOTINE (14 MG/24 HR) PATCH TRANSDERM SCH (08:58)
--- NOTE | 2017-04-27 10:42 | CONS ---
Date/Time of Note Date/Time of Note DATE: 04/27/17 TIME: 10:41 Consultation Date/Type/Reason Admit Date/Time Apr 15, 2017 at 23:51 Date of Consultation: Apr 27, 2017 Type of Consultation: Pulmonary Hx of Present Illness Pulmonary consult dictated [id number] Past Surgical History Past Surgical Hx: no surgical history Social History Smoking Status: Former smoker Exam/Review of Systems Vital Signs Vitals Vital Signs Date Time Temp Pulse Resp B/P Pulse Ox O2 Delivery O2 Flow Rate FiO2 04/27/17 07:20 98.2 97 18 163/86 97 04/27/17 02:30 Nasal Cannula 04/26/17 21:49 21 Intake and Output 04/26/17 04/26/17 04/27/17 15:00 23:00 07:00 Intake Total 1880 ml 800 ml Output Total 1100 ml 1500 ml Balance 780 ml -700 ml Results Result Diagram: 04/27/17 0557 04/27/17 0557 Results 24 hrs Laboratory Tests Test 04/26/17 12:26 04/26/17 17:34 04/26/17 20:46 04/27/17 05:57 Bedside Glucose 191 260 H 180 White Blood Count 9.9 Red Blood Count 3.72 L Hemoglobin 10.3 L Hematocrit 32.3 L Mean Corpuscular Volume 86.8 Mean Corpuscular Hemoglobin 27.7 L Mean Corpuscular Hemoglobin Concent 31.9 L Red Cell Distribution Width 13.8 Platelet Count 236 Mean Platelet Volume 9.9 Neutrophils % 64.2 Lymphocytes % 18.9 Monocytes % 12.3 H Eosinophils % 3.6 Basophils % 0.3 Nucleated Red Blood Cells % 0.0 Neutrophils # 6.3 Lymphocytes # 1.9 Monocytes # 1.2 H Eosinophils # 0.4 Basophils # 0.0 Nucleated Red Blood Cells # 0.0 Sodium Level 140 Potassium Level 4.4 Chloride Level 99 Carbon Dioxide Level 34 H Anion Gap 11 Blood Urea Nitrogen 29 H Creatinine 0.97 Glucose Level 111 Calcium Level 8.7 Phosphorus Level 4.5 Magnesium Level 2.1 Test 04/27/17 08:10 Bedside Glucose 127 Medications Medications Current Medications Lorazepam (Ativan) 0.5 mg Q8H PRN PO ANXIETY; Start 04/16/17 at 00:30 Ondansetron HCl (Zofran Inj) 4 mg Q6H PRN IV NAUSEA AND/OR VOMITING; Start 04/16/17 at 00:30 Nitroglycerin (Nitroglycerin (Sl Tab) 0.4 Mg) 1 tab Q5M PRN SL CHEST PAIN; Start 04/16/17 at 00:30 Acetaminophen (Tylenol Tab) 650 mg Q6H PRN PO PAIN LEVEL 1-3 OR FEVER Last administered on 04/24/17 19:37; Admin Dose 650 MG; Start 04/16/17 at 00:30 Morphine Sulfate (morphine) 2 mg Q4H PRN IV PAIN LEVEL 7-10 Last administered on 04/26/17 22:53; Admin Dose 2 MG; Start 04/16/17 at 00:30 Aspirin (Aspirin) 81 mg DAILY PO Last administered on 04/27/17 08:12; Admin Dose 81 MG; Start 04/16/17 at 09:00 Ferrous Sulfate (Ferrous Sulfate (Ec)) 325 mg BID PO Last administered on 04/27 08:12; Admin Dose 325 MG; Start 04/16/17 at 09:00 Gabapentin (Neurontin) 300 mg TID PO Last administered on 04/27/17 08:12; Admin Dose 300 MG; Start 04/16/17 at 09:00 Losartan Potassium (Cozaar) 100 mg DAILY PO Last administered on 04/27/17 08: 13; Admin Dose 100 MG; Start 04/16/17 at 09:00 Nifedipine (Procardia Xl) 90 mg DAILY PO Last administered on 04/27/17 08:13 ; Admin Dose 90 MG; Start 04/16/17 at 09:00 Salmeterol Xinafoate/ Fluticasone (Advair 250/50 Diskus) 1 inh BID INH Last administered on 04/27/17 08:13; Admin Dose 1 INH; Start 04/16/17 at 00:30 Tamsulosin HCl (Flomax) 0.4 mg HS PO Last administered on 04/26/17 20:47; Admin Dose 0.4 MG; Start 04/16/17 at 21:00 Thiamine HCl (Vitamin B1) 100 mg DAILY PO Last administered on 04/27/17 08:12 ; Admin Dose 100 MG; Start 04/16/17 at 09:00 Nicotine (Nicoderm 14 Mg/ 24hr) 1 patch DAILY TRANSDERM Last administered on 08:58; Admin Dose 1 PATCH; Start 04/16/17 at 09:00 Hydralazine HCl (Apresoline) 10 mg Q4H PRN IV SBP > 160 Last administered on 06:17; Admin Dose 10 MG; Start 04/16/17 at 00:30 Miscellaneous Information 1 ea NOTE XX ; Start 04/16/17 at 00:40 Glucose (Glutose) 15 gm Q15M PRN PO DECREASED GLUCOSE; Start 04/16/17 at 00:40 Glucose (Glutose) 22.5 gm Q15M PRN PO DECREASED GLUCOSE; Start 04/16/17 at 00: 40 Dextrose (D50w Syringe) 25 ml Q15M PRN IV DECREASED GLUCOSE; Start 04/16/17 at 00:40 Dextrose (D50w Syringe) 50 ml Q15M PRN IV DECREASED GLUCOSE; Start 04/16/17 at 00:40 Glucagon (Glucagen) 1 mg Q15M PRN IM DECREASED GLUCOSE; Start 04/16/17 at 00:40 Glucose (Glutose) 15 gm Q15M PRN BUCCAL DECREASED GLUCOSE; Start 04/16/17 at 00 :40 Miscellaneous Information (Flu Vaccine Previously Dispensed) FLU VACCINE PREVIOU... NOTE PRN XX NOTE; Start 04/16/17 at 01:30 Diagnostic Test (Pha) (Accu-Chek) 1 ea 02 XX ; Start 04/17/17 at 02:00 Magnesium Hydroxide (Milk Of Mag) 30 ml DAILY PRN PO CONSTIPATION Last administered on 04/26/17 20:58; Admin Dose 30 ML; Start 04/16/17 at 13:30 Bisacodyl (Dulcolax Supp) 10 mg DAILY PRN [place] CONSTIPATION Last administered on 04/24/17 17:03; Admin Dose 10 MG; Start 04/18/17 at 11:30 Capsaicin (Theragen) 1 applic TID PRN TOP pain Last administered on 04/26/17 20:47; Admin Dose 1 APPLIC; Start 04/20/17 at 15:30 Polyethylene Glycol (Miralax) 17 gm DAILY PRN NGT CONSTIPATION Last administered on 04/26/17 11:43; Admin Dose 17 GM; Start 04/24/17 at 13:00 Insulin Glargine (Lantus) 32 unit QHS SC Last administered on 12/18/17at 20:51 ; Admin Dose 32 UNIT; Start 04/24/17 at 21:00 DAILY LARIOS Apr 27, 2017 10:42
--- NOTE | 2017-04-27 11:02 | CONS ---
DATE OF ADMISSION: 04/15/2017 DATE OF CONSULTATION: 04/27/2017 REFERRING PHYSICIAN: Hospitalist. REASON FOR REFERRAL: Evaluation of recurrent right pleural effusion. HISTORY OF PRESENT ILLNESS: Mr. Shukla is a pleasant 62-year-old male who was admitted on 04/16/2017 with complaints of shortness of breath. Upon evaluation, a chest x-ray was done which showed recur rent pleural effusion. The patient underwent thoracentesis on the 16 of this month with significa nt relief in symptoms. He currently denies any chest pain, shortness of breath, fever, chills. PAST MEDICAL HISTORY: 1. COPD. 2. Hypertension. 3. Diabetes. 4. Benign prostatic hypertrophy. 5. Hyperlipidemia. 6. Diastolic dysfunction. 7. Recurrent right pleural effusions with multiple thoracenteses performed in the past. 8. Anemia. MEDICATIONS: The patient is currently on: 1. Acetaminophen on a p.r.n. basis. 2. DuoNeb q.4h. 3. Aspirin 81 mg a day. 4. Feosol 325 mg b.i.d. 5. Lasix 40 mg b.i.d. 6. Neurontin 300 mg b.i.d. 7. Sliding scale insulin as well as Lantus insulin 32 units daily. 8. Cozaar 100 mg daily. 9. Morphine on a p.r.n. basis including patch 14 mg daily. 10. Procardia 90 mg daily. 11. Advair 250/50 b.i.d. 12. Flomax 0.4 mg a day. 13. Thiamine 100 mg a day. ALLERGIES: NONE. SOCIAL HISTORY: The patient has a remote history of smoking. FAMILY HISTORY: The patient is , has a supportive family. No history of any illnesses other than diabetes. OCCUPATIONAL HISTORY: Noncontributory. REVIEW OF SYSTEMS: Denies any headache, visual changes, sinus symptoms, postnasal drip, dysphagia, odynophagia, sore throat, wheezing, abdominal pain, nausea, vomiting, melena, hematochezia, edema, o rthopnea, or any skin changes. PHYSICAL EXAMINATION: GENERAL: Elderly male, awake, alert, currently in no distress. VITAL SIGNS: Temperature is 98.2 degrees Fahrenheit, pulse is 97 per minute, respiratory rate is 18 per minute, blood pressure is 130/64, O2 saturation 97% on 2 liters nasal cannula. Urine output is adequate. HEENT: Supple neck, no JVD, no lymphadenopathy, midline trachea, no thyromegaly. Pharynx clear, no neck bruits. CHEST: Clear to auscultation. HEART: S1, S2 audible. No murmurs, regular rhythm. ABDOMEN: Soft, protuberant, nondistended. No organomegaly. Bowel sounds audible. EXTREMITIES: No peripheral edema. Pulses 1+ bilaterally. NEUROLOGIC: No focal deficit. LABORATORIES: White count is 9.9, hemoglobin 10.3, platelet count of 236. Sodium 140, potassium 4. 4, chloride 99, bicarbonate 34, BUN 29, creatinine 0.9. IMAGING: Chest x-ray was reviewed from the 16th of this month post-thoracentesis which is showing m arked improvement. Chest x-ray also was reviewed from the of this month, which is showing mode rate right pleural effusion. ASSESSMENT AND PLAN: 1. Patient admitted for recurrent shortness of breath due to recurrent pleural effusion, status pos t thoracentesis, which has been performed multiple times in the past. 2. Underlying diastolic dysfunction, possibly contributing to recurrent effusions. 3. Multiple other comorbidities including diabetes, hypertension, neuropathy, anemia which all appe ar fairly stable. RECOMMENDATIONS: 1. Continue current treatment. Patient would benefit from a VATS pleurodesis for pleural effusion if he has a recurrence. 2. At this time, I would recommend discharging the patient home. Dictated By: DAILY LARIOS MD AQ/NTS Conf#: [id number] DID#: [id number] CC: APOLLO MARTIN MD;*EndCC*
[2017-04-27] MEDS: ACETAMINOPHEN 325 MG TAB PO PRN (13:12)
[2017-04-27 14:09] VITALS: BP 109/62; RESP 18
[2017-04-27 14:16] VITALS: BP 133/80; RESP 18
[2017-04-27] MEDS ORDERED: NA PHOSPHATE/BIPHOS 133 ML ENEMA PR ONE (15:00)
--- NOTE | 2017-04-27 15:13 | PN ---
Date/Time of Note Date/Time of Note DATE: 04/27/17 TIME: 14:59 Assessment/Plan VTE Prophylaxis VTE Prophylaxis Intervention: ambulation, SCD's Lines/Catheters IV Catheter Type (from Nrs): Saline Lock Urinary Cath still in place: No Assessment/Plan Chief Complaint/Hosp Course Subjective 04.27 patient states his right foot is swollen Objective Physical exam General: Patient is laying in bed and answers questions appropriately Mentation: Patient is alert and oriented 4, Head: Normocephalic atraumatic Eyes: EOMI, pupils reactive to light Neck: Supple, nontender, midline Respiratory: coarse to auscultation bilaterally Cardiovascular: regular rate, no obvious murmurs Gastrointestinal: non-tender to palpation, bowel sounds heard. Neurological: Moves all extremities spontaneously Skin: No new skin lesions, mild 1+ edema bilaterally Assessment/Plan 62 yo M with known hx chronic diastolic HF with recurrent pleural effusions warranting drainage admitted for SOB. SOB: sp thora with 1200 mL fluid removed, likely exudative -no growth on thora culture -Given history of recurrent effusions, pulmonology consulted, questionable etiology, extensive workup in the past, multiple differentials -Continue meds LE swelling -very mild -obtain LE US labile BG: appreciate DM RN note -ISS and lantus L shoulder pain: -clinical exam suggestive of rotator cuff tendonitis/tendinopathy. XR without fracture -topical pain meds, PCP follow up -OT eval complete, outpatient OT advised BPH: -Continue Flomax DISPO -pulm consult appreciated, CXR in the AM, f/u US LE -will need VATS if patient's fluid reaccumulates instead of just thoracentesis -? cause of effusions Problems: Exam/Review of Systems Vital Signs Vitals Vital Signs Date Time Temp Pulse Resp B/P Pulse Ox O2 Delivery O2 Flow Rate FiO2 04/27/17 14:16 98.6 82 18 133/80 97 04/27/17 02:30 Nasal Cannula 04/26/17 21:49 21 Intake and Output 04/26/17 04/26/17 04/27/17 15:00 23:00 07:00 Intake Total 1880 ml 800 ml Output Total 1100 ml 1500 ml Balance 780 ml -700 ml Results Result Diagram: 04/27/17 0557 04/27/17 0557 Results 24 hrs Laboratory Tests Test 04/26/17 17:34 04/26/17 20:46 04/27/17 05:57 04/27/17 08:10 Bedside Glucose 260 H 180 127 White Blood Count 9.9 Red Blood Count 3.72 L Hemoglobin 10.3 L Hematocrit 32.3 L Mean Corpuscular Volume 86.8 Mean Corpuscular Hemoglobin 27.7 L Mean Corpuscular Hemoglobin Concent 31.9 L Red Cell Distribution Width 13.8 Platelet Count 236 Mean Platelet Volume 9.9 Neutrophils % 64.2 Lymphocytes % 18.9 Monocytes % 12.3 H Eosinophils % 3.6 Basophils % 0.3 Nucleated Red Blood Cells % 0.0 Neutrophils # 6.3 Lymphocytes # 1.9 Monocytes # 1.2 H Eosinophils # 0.4 Basophils # 0.0 Nucleated Red Blood Cells # 0.0 Sodium Level 140 Potassium Level 4.4 Chloride Level 99 Carbon Dioxide Level 34 H Anion Gap 11 Blood Urea Nitrogen 29 H Creatinine 0.97 Glucose Level 111 Calcium Level 8.7 Phosphorus Level 4.5 Magnesium Level 2.1 Test 04/27/17 12:03 Bedside Glucose 157 Medications Medications Current Medications Lorazepam (Ativan) 0.5 mg Q8H PRN PO ANXIETY; Start 04/16/17 at 00:30 Ondansetron HCl (Zofran Inj) 4 mg Q6H PRN IV NAUSEA AND/OR VOMITING; Start 04/16/17 at 00:30 Nitroglycerin (Nitroglycerin (Sl Tab) 0.4 Mg) 1 tab Q5M PRN SL CHEST PAIN; Start 04/16/17 at 00:30 Acetaminophen (Tylenol Tab) 650 mg Q6H PRN PO PAIN LEVEL 1-3 OR FEVER Last administered on 04/27/17 13:12; Admin Dose 650 MG; Start 04/16/17 at 00:30 Morphine Sulfate (morphine) 2 mg Q4H PRN IV PAIN LEVEL 7-10 Last administered on 04/26/17 22:53; Admin Dose 2 MG; Start 04/16/17 at 00:30 Aspirin (Aspirin) 81 mg DAILY PO Last administered on 04/27/17 08:12; Admin Dose 81 MG; Start 04/16/17 at 09:00 Ferrous Sulfate (Ferrous Sulfate (Ec)) 325 mg BID PO Last administered on 04/27 08:12; Admin Dose 325 MG; Start 04/16/17 at 09:00 Gabapentin (Neurontin) 300 mg TID PO Last administered on 04/27/17 12:04; Admin Dose 300 MG; Start 04/16/17 at 09:00 Losartan Potassium (Cozaar) 100 mg DAILY PO Last administered on 04/27/17 08: 13; Admin Dose 100 MG; Start 04/16/17 at 09:00 Nifedipine (Procardia Xl) 90 mg DAILY PO Last administered on 04/27/17 08:13 ; Admin Dose 90 MG; Start 04/16/17 at 09:00 Salmeterol Xinafoate/ Fluticasone (Advair 250/50 Diskus) 1 inh BID INH Last administered on 04/27/17 08:13; Admin Dose 1 INH; Start 04/16/17 at 00:30 Tamsulosin HCl (Flomax) 0.4 mg HS PO Last administered on 04/26/17 20:47; Admin Dose 0.4 MG; Start 04/16/17 at 21:00 Thiamine HCl (Vitamin B1) 100 mg DAILY PO Last administered on 04/27/17 08:12 ; Admin Dose 100 MG; Start 04/16/17 at 09:00 Nicotine (Nicoderm 14 Mg/ 24hr) 1 patch DAILY TRANSDERM Last administered on 08:58; Admin Dose 1 PATCH; Start 04/16/17 at 09:00 Hydralazine HCl (Apresoline) 10 mg Q4H PRN IV SBP > 160 Last administered on 06:17; Admin Dose 10 MG; Start 04/16/17 at 00:30 Miscellaneous Information 1 ea NOTE XX ; Start 04/16/17 at 00:40 Glucose (Glutose) 15 gm Q15M PRN PO DECREASED GLUCOSE; Start 04/16/17 at 00:40 Glucose (Glutose) 22.5 gm Q15M PRN PO DECREASED GLUCOSE; Start 04/16/17 at 00: 40 Dextrose (D50w Syringe) 25 ml Q15M PRN IV DECREASED GLUCOSE; Start 04/16/17 at 00:40 Dextrose (D50w Syringe) 50 ml Q15M PRN IV DECREASED GLUCOSE; Start 04/16/17 at 00:40 Glucagon (Glucagen) 1 mg Q15M PRN IM DECREASED GLUCOSE; Start 04/16/17 at 00:40 Glucose (Glutose) 15 gm Q15M PRN BUCCAL DECREASED GLUCOSE; Start 04/16/17 at 00 :40 Miscellaneous Information (Flu Vaccine Previously Dispensed) FLU VACCINE PREVIOU... NOTE PRN XX NOTE; Start 04/16/17 at 01:30 Diagnostic Test (Pha) (Accu-Chek) 1 ea 02 XX ; Start 04/17/17 at 02:00 Magnesium Hydroxide (Milk Of Mag) 30 ml DAILY PRN PO CONSTIPATION Last administered on 04/26/17 20:58; Admin Dose 30 ML; Start 04/16/17 at 13:30 Bisacodyl (Dulcolax Supp) 10 mg DAILY PRN [place] CONSTIPATION Last administered on 04/24/17 17:03; Admin Dose 10 MG; Start 04/18/17 at 11:30 Capsaicin (Theragen) 1 applic TID PRN TOP pain Last administered on 04/26/17 20:47; Admin Dose 1 APPLIC; Start 04/20/17 at 15:30 Polyethylene Glycol (Miralax) 17 gm DAILY PRN NGT CONSTIPATION Last administered on 04/26/17 11:43; Admin Dose 17 GM; Start 04/24/17 at 13:00 Insulin Glargine (Lantus) 32 unit QHS SC Last administered on 04/26/17 20:51 ; Admin Dose 32 UNIT; Start 04/24/17 at 21:00 Sodium Biphosphate/ Sodium Phosphate (Fleet Enema) 133 ml ONCE ONCE [place] ; Start 04/27/17 at 15:00; Stop 04/27/17 at 15:01 MOI HAIRSTON Apr 27, 2017 15:09
--- NOTE | 2017-04-27 16:27 | RADRPT ---
PROCEDURE: US Lower extremity Venous. CLINICAL INDICATION: Bilateral leg swelling TECHNIQUE: Multiple sonographic images of the bilateral lower extremity deep venous system was obt ained utilizing houser scale, color-flow, compressive sonography and doppler imaging with augmentation . COMPARISON: None. FINDINGS: There is normal compressibility, phasicity and Doppler flow within the bilateral common femoral, fem oral and popliteal veins. Visualized portions of the calf veins are patent. IMPRESSION: No sonographic evidence for deep venous thrombosis. RPTAT:AAJJ Physician Marjan Date Time Electronically viewed and signed by Selvin Shabazz Physician on 04/27/2017 16:27 /
[2017-04-27 20:00] VITALS: BP 133/70; RESP 20
[2017-04-27] MEDS: TAMSULOSIN (SR) 0.4 MG CAP PO SCH (21:03)
[2017-04-27] MEDS: INSULIN GLARGINE [LANtus] 3 ML PEN SC SCH (21:04)
[2017-04-28] MEDS: morphine 2 MG INJ IV PRN ×2 (00:41→17:38)
[2017-04-28 02:00] VITALS: BP 116/59; RESP 20
[2017-04-28] MEDS: ACCU-CHEK XX SCH (02:00)
[2017-04-28] MEDS: FUROSEMIDE 40 MG TAB PO SCH (05:56)
[2017-04-28 05:58] LABS: BASOPHILS % 0.2 % (0.0-2.0); EOSINOPHILS # 0.3 10^3/ul (0.0-0.5); EOSINOPHILS % 3.1 % (0.0-7.0); HEMATOCRIT 32.6 % (42.0-52.0); HEMOGLOBIN 10.3 g/dl (14.0-18.0); LYMPHOCYTES # 1.7 10^3/ul (0.8-2.9); MEAN CORPUSCULAR HEMOGLOBIN 27.2 pg (29.0-33.0); MEAN CORPUSCULAR HGB CONC 31.6 g/dl (32.0-37.0); MEAN CORPUSCULAR VOLUME 86.2 fl (82.0-101.0); MEAN PLATELET VOLUME 9.6 fl (7.4-10.4); MONOCYTE # 1.1 10^3/ul (0.3-0.9); MONOCYTES % 10.4 % (0.0-11.0); NEUTROPHIL # 7.5 10^3/ul (1.6-7.5); NEUTROPHILS % 69.8 % (39.0-77.0); PLATELET COUNT 246 10^3/UL (140-415); RED BLOOD COUNT 3.78 10^6/ul (4.70-6.10); RED CELL DISTRIBUTION WIDTH 13.8 % (11.5-14.5); WHITE BLOOD COUNT 10.7 10^3/ul (4.8-10.8)
[2017-04-28 06:39] LABS: CALCIUM 9.1 mg/dl (8.4-10.2); CREATININE 0.98 mg/dl (0.61-1.24); MAGNESIUM 1.9 mg/dl (1.7-2.5); PHOSPHORUS 4.5 mg/dl (2.5-4.9); POTASSIUM 4.1 mmol/L (3.5-5.1)
[2017-04-28 07:38] VITALS: BP 149/70; RESP 19
[2017-04-28 08:11] VITALS: BP 141/71; PULSE 99; RESP 20
[2017-04-28] MEDS: LOSARTAN 50 MG TAB PO SCH (08:13)
[2017-04-28] MEDS: FERROUS SULFATE (EC) 325 MG TAB PO SCH ×2 (08:13→20:41)
[2017-04-28] MEDS: ASPIRIN 81 MG TAB PO SCH (08:13)
[2017-04-28] MEDS: NIFEdipine (XL) 90 MG TAB PO SCH (08:14)
[2017-04-28] MEDS: GABAPENTIN 300 MG CAP PO SCH ×3 (08:14→20:41)
[2017-04-28] MEDS: THIAMINE 100 MG TAB PO SCH (08:14)
[2017-04-28] MEDS: NICOTINE (14 MG/24 HR) PATCH TRANSDERM SCH (08:15)
[2017-04-28] MEDS: SALMETEROL/FLUTICASONE 250/50 INHA INH SCH ×2 (08:15→20:42)
[2017-04-28] MEDS: INSULIN ASPART [NOVOLOG] 3 ML PEN SC SCH ×7 (08:20→20:44)
--- NOTE | 2017-04-28 08:57 | RADRPT ---
PROCEDURE: XR Chest. CLINICAL INDICATION: Shortness of breath TECHNIQUE: Single AP view of the chest was obtained COMPARISON: 11/28/2016 FINDINGS: Moderate right pleural effusion. Left lung is clear. Cardiomegaly. No acute osseous abnormality. IMPRESSION: Moderate right pleural effusion with adjacent atelectasis or pneumonia. Cardiomegaly. RPTAT: KK Physician Bautista Date Time Electronically viewed and signed by Sarah Torres Physician on 04/28/2017 08:57 NV/
--- NOTE | 2017-04-28 10:35 | CONS ---
Date/Time of Note Date/Time of Note DATE: 04/28/17 TIME: 10:33 Assessment/Plan Assessment/Plan Chief Complaint/Hosp Course Pulmonary consult dictated [id number] Problems: Additional Assessment/Plan Chest x-ray was reviewed from today which is showing small right pleural effusion. Assessment and recommendations; 1. Patient admitted with shortness of breath due to recurrent right pleural effusion. Status post thoracentesis. 2. Multiple other comorbidities including diabetes, hypertension, BPH, COPD and chronic anemia. 3. Diastolic dysfunction. Continue current treatment. Consider discharge. Patient would benefit from a VATS pleurodesis if he has a recurrent right pleural effusion. Obtain follow- up chest x-ray in about a week's time. Consultation Date/Type/Reason Admit Date/Time Apr 15, 2017 at 23:51 Initial Consult Date 04/27/17 Type of Consultation: Pulmonary 24 HR Interval Summary Free Text/Dictation Patient's condition is stable. Sitting in a chair by bedside. Denies any shortness of breath or chest pain. General exam; elderly male, awake and alert. Currently in no distress. Exam/Review of Systems Vital Signs Vitals Vital Signs Date Time Temp Pulse Resp B/P Pulse Ox O2 Delivery O2 Flow Rate FiO2 04/28/17 08:11 98.8 99 20 141/71 92 Room Air 04/28/17 07:41 2.0 04/26/17 21:49 21 Intake and Output 04/27/17 04/27/17 04/28/17 15:00 23:00 07:00 Intake Total 960 ml Output Total 1400 ml Balance -440 ml Exam HEENT exam; supple neck, JVD difficult to see because of presence of dennis.. No lymphadenopathy. Midline trachea. No thyromegaly. Patient is edentulous. Chest exam; diminished but clear breath sounds. S1-S2 audible, no murmurs. Regular rhythm. Abdomen exam; soft, protuberant. Nontender. No organomegaly. Bowel sounds audible. Extremity exam; no edema. ALTERATIONS SUPERVISOR exam; no focal deficit. Results Result Diagram: 04/28/17 0535 04/28/17 0535 Results 24 hrs Laboratory Tests Test 04/27/17 12:03 04/27/17 17:17 04/27/17 21:00 04/28/17 05:35 Bedside Glucose 157 78 166 White Blood Count 10.7 Red Blood Count 3.78 L Hemoglobin 10.3 L Hematocrit 32.6 L Mean Corpuscular Volume 86.2 Mean Corpuscular Hemoglobin 27.2 L Mean Corpuscular Hemoglobin Concent 31.6 L Red Cell Distribution Width 13.8 Platelet Count 246 Mean Platelet Volume 9.6 Neutrophils % 69.8 Lymphocytes % 16.0 Monocytes % 10.4 Eosinophils % 3.1 Basophils % 0.2 Nucleated Red Blood Cells % 0.0 Neutrophils # 7.5 Lymphocytes # 1.7 Monocytes # 1.1 H Eosinophils # 0.3 Basophils # 0.0 Nucleated Red Blood Cells # 0.0 Sodium Level 140 Potassium Level 4.1 Chloride Level 101 Carbon Dioxide Level 33 H Anion Gap 10 Blood Urea Nitrogen 29 H Creatinine 0.98 Glucose Level 159 Calcium Level 9.1 Phosphorus Level 4.5 Magnesium Level 1.9 Test 04/28/17 08:08 Bedside Glucose 199 Medications Medications Current Medications Lorazepam (Ativan) 0.5 mg Q8H PRN PO ANXIETY; Start 04/16/17 at 00:30 Ondansetron HCl (Zofran Inj) 4 mg Q6H PRN IV NAUSEA AND/OR VOMITING; Start 04/16/17 at 00:30 Nitroglycerin (Nitroglycerin (Sl Tab) 0.4 Mg) 1 tab Q5M PRN SL CHEST PAIN; Start 04/16/17 at 00:30 Acetaminophen (Tylenol Tab) 650 mg Q6H PRN PO PAIN LEVEL 1-3 OR FEVER Last administered on 04/27/17 13:12; Admin Dose 650 MG; Start 04/16/17 at 00:30 Morphine Sulfate (morphine) 2 mg Q4H PRN IV PAIN LEVEL 7-10 Last administered on 04/28/17 00:41; Admin Dose 2 MG; Start 04/16/17 at 00:30 Aspirin (Aspirin) 81 mg DAILY PO Last administered on 04/28/17 08:13; Admin Dose 81 MG; Start 04/16/17 at 09:00 Ferrous Sulfate (Ferrous Sulfate (Ec)) 325 mg BID PO Last administered on 04/28 08:13; Admin Dose 325 MG; Start 04/16/17 at 09:00 Gabapentin (Neurontin) 300 mg TID PO Last administered on 04/28/17 08:14; Admin Dose 300 MG; Start 04/16/17 at 09:00 Losartan Potassium (Cozaar) 100 mg DAILY PO Last administered on 04/28/17 08: 13; Admin Dose 100 MG; Start 04/16/17 at 09:00 Nifedipine (Procardia Xl) 90 mg DAILY PO Last administered on 04/28/17 08:14 ; Admin Dose 90 MG; Start 04/16/17 at 09:00 Salmeterol Xinafoate/ Fluticasone (Advair 250/50 Diskus) 1 inh BID INH Last administered on 04/28/17 08:15; Admin Dose 1 INH; Start 04/16/17 at 00:30 Tamsulosin HCl (Flomax) 0.4 mg HS PO Last administered on 04/27/17 21:03; Admin Dose 0.4 MG; Start 04/16/17 at 21:00 Thiamine HCl (Vitamin B1) 100 mg DAILY PO Last administered on 04/28/17 08:14 ; Admin Dose 100 MG; Start 04/16/17 at 09:00 Nicotine (Nicoderm 14 Mg/ 24hr) 1 patch DAILY TRANSDERM Last administered on 08:15; Admin Dose 1 PATCH; Start 04/16/17 at 09:00 Hydralazine HCl (Apresoline) 10 mg Q4H PRN IV SBP > 160 Last administered on 06:17; Admin Dose 10 MG; Start 04/16/17 at 00:30 Miscellaneous Information 1 ea NOTE XX ; Start 04/16/17 at 00:40 Glucose (Glutose) 15 gm Q15M PRN PO DECREASED GLUCOSE; Start 04/16/17 at 00:40 Glucose (Glutose) 22.5 gm Q15M PRN PO DECREASED GLUCOSE; Start 04/16/17 at 00: 40 Dextrose (D50w Syringe) 25 ml Q15M PRN IV DECREASED GLUCOSE; Start 04/16/17 at 00:40 Dextrose (D50w Syringe) 50 ml Q15M PRN IV DECREASED GLUCOSE; Start 04/16/17 at 00:40 Glucagon (Glucagen) 1 mg Q15M PRN IM DECREASED GLUCOSE; Start 04/16/17 at 00:40 Glucose (Glutose) 15 gm Q15M PRN BUCCAL DECREASED GLUCOSE; Start 04/16/17 at 00 :40 Miscellaneous Information (Flu Vaccine Previously Dispensed) FLU VACCINE PREVIOU... NOTE PRN XX NOTE; Start 04/16/17 at 01:30 Diagnostic Test (Pha) (Accu-Chek) 1 ea 02 XX ; Start 04/17/17 at 02:00 Magnesium Hydroxide (Milk Of Mag) 30 ml DAILY PRN PO CONSTIPATION Last administered on 04/26/17 20:58; Admin Dose 30 ML; Start 04/16/17 at 13:30 Bisacodyl (Dulcolax Supp) 10 mg DAILY PRN [place] CONSTIPATION Last administered on 04/24/17 17:03; Admin Dose 10 MG; Start 04/18/17 at 11:30 Capsaicin (Theragen) 1 applic TID PRN TOP pain Last administered on 04/26/17 20:47; Admin Dose 1 APPLIC; Start 04/20/17 at 15:30 Polyethylene Glycol (Miralax) 17 gm DAILY PRN NGT CONSTIPATION Last administered on 04/26/17 11:43; Admin Dose 17 GM; Start 04/24/17 at 13:00 Insulin Glargine (Lantus) 32 unit QHS SC Last administered on 04/27/17 21:04 ; Admin Dose 32 UNIT; Start 04/24/17 at 21:00 DAILY LARIOS Apr 28, 2017 10:35
--- NOTE | 2017-04-28 11:18 | PN ---
Date/Time of Note Date/Time of Note DATE: 04/28/17 TIME: 11:03 Assessment/Plan VTE Prophylaxis VTE Prophylaxis Intervention: SCD's Lines/Catheters IV [facility] Saline Lock Urinary Cath still in place: No Assessment/Plan Chief Complaint/Hosp Course S: Patient had a second thoracentesis on April 24. No acute events overnight. Seen by pulmonary team this morning. O: VS (see below) PE: Constitutional: Lying in bed, no acute distress Head: atraumatic, normocephalic Eyes: EOMI, PERRL Respiratory: Clear to auscultation bilaterally Cardiovascular: nl pulses, regular rate and rhythm Gastrointestinal: non-tender, soft Extremities: normal pulses Assessment/Plan: 62-year-old male with a history of hypertension, COPD, type I diabetes, BPH, dyslipidemia, diastolic dysfunction, pleural effusion requiring thoracentesis presents with a progressively worsening shortness of breath, most likely secondary to a combination of recurrent pleural effusion, COPD and diastolic dysfunction 1. SOB: improving, likely secondary patient's COPD. Patient status post 2 thoracentesis performed this admission. -Continue duo nebs as needed -Continue supplemental oxygen -Follow-up pulmonary recommended she is, they are recommending outpatient follow-up and consideration for VATS pleurodesis. -If this is indeed an exudative pleural effusion, will check tumor markers to start possible workup for this. Culture results have been negative. -May consider repeat echocardiogram, last was performed in February 2017. Signs of pulmonary hypertension were found on this last echocardiogram, although ejection fraction was 65%. Will discuss with pulmonary team about this peer 2. DM -sugars in the normal range. Last A1c on April 20/2017 = 10.4. --Continue insulin, Lantus, aspart with meals 3. BPH: -Continue Flomax for BPH 4. L shoulder pain: - clinical exam suggestive of rotator cuff tendonitis/ tendinopathy. XR without fracture -topical pain meds, PCP follow up -OT eval complete, outpatient OT advised 5. Lower extremity edema: 2+ pitting edema bilaterally. -Monitor, consider CT abdomen pelvis to evaluate liver. Patient does, however, deny any history of any hepatitis or alcohol abuse. -Consider increasing Lasix dose Problems: Exam/Review of Systems Vital Signs Vitals Vital Signs Date Time Temp Pulse Resp B/P Pulse Ox O2 Delivery O2 Flow Rate FiO2 12/20/17 08:11 98.8 99 20 141/71 92 Room Air 04/28/17 07:41 2.0 04/26/17 21:49 21 Intake and Output 04/27/17 04/27/17 04/28/17 15:00 23:00 07:00 Intake Total 960 ml Output Total 1400 ml Balance -440 ml Results Result Diagram: 04/28/17 0535 04/28/17 0535 Results 24 hrs Laboratory Tests Test 04/27/17 12:03 04/27/17 17:17 04/27/17 21:00 04/28/17 05:35 Bedside Glucose 157 78 166 White Blood Count 10.7 Red Blood Count 3.78 L Hemoglobin 10.3 L Hematocrit 32.6 L Mean Corpuscular Volume 86.2 Mean Corpuscular Hemoglobin 27.2 L Mean Corpuscular Hemoglobin Concent 31.6 L Red Cell Distribution Width 13.8 Platelet Count 246 Mean Platelet Volume 9.6 Neutrophils % 69.8 Lymphocytes % 16.0 Monocytes % 10.4 Eosinophils % 3.1 Basophils % 0.2 Nucleated Red Blood Cells % 0.0 Neutrophils # 7.5 Lymphocytes # 1.7 Monocytes # 1.1 H Eosinophils # 0.3 Basophils # 0.0 Nucleated Red Blood Cells # 0.0 Sodium Level 140 Potassium Level 4.1 Chloride Level 101 Carbon Dioxide Level 33 H Anion Gap 10 Blood Urea Nitrogen 29 H Creatinine 0.98 Glucose Level 159 Calcium Level 9.1 Phosphorus Level 4.5 Magnesium Level 1.9 Test 04/28/17 08:08 Bedside Glucose 199 Medications Medications Current Medications Lorazepam (Ativan) 0.5 mg Q8H PRN PO ANXIETY; Start 04/16/17 at 00:30 Ondansetron HCl (Zofran Inj) 4 mg Q6H PRN IV NAUSEA AND/OR VOMITING; Start 04/16/17 at 00:30 Nitroglycerin (Nitroglycerin (Sl Tab) 0.4 Mg) 1 tab Q5M PRN SL CHEST PAIN; Start 04/16/17 at 00:30 Acetaminophen (Tylenol Tab) 650 mg Q6H PRN PO PAIN LEVEL 1-3 OR FEVER Last administered on 04/27/17t 13:12; Admin Dose 650 MG; Start 04/16/17 at 00:30 Morphine Sulfate (morphine) 2 mg Q4H PRN IV PAIN LEVEL 7-10 Last administered on 04/28/17 00:41; Admin Dose 2 MG; Start 04/16/17 at 00:30 Aspirin (Aspirin) 81 mg DAILY PO Last administered on 04/28/17 08:13; Admin Dose 81 MG; Start 04/16/17 at 09:00 Ferrous Sulfate (Ferrous Sulfate (Ec)) 325 mg BID PO Last administered on 04/28 08:13; Admin Dose 325 MG; Start 04/16/17 at 09:00 Gabapentin (Neurontin) 300 mg TID PO Last administered on 04/28/17 08:14; Admin Dose 300 MG; Start 04/16/17 at 09:00 Losartan Potassium (Cozaar) 100 mg DAILY PO Last administered on 04/28/17 08: 13; Admin Dose 100 MG; Start 04/16/17 at 09:00 Nifedipine (Procardia Xl) 90 mg DAILY PO Last administered on 04/28/17 08:14 ; Admin Dose 90 MG; Start 04/16/17 at 09:00 Salmeterol Xinafoate/ Fluticasone (Advair 250/50 Diskus) 1 inh BID INH Last administered on 04/28/17 08:15; Admin Dose 1 INH; Start 04/16/17 at 00:30 Tamsulosin HCl (Flomax) 0.4 mg HS PO Last administered on 04/27/17 21:03; Admin Dose 0.4 MG; Start 04/16/17 at 21:00 Thiamine HCl (Vitamin B1) 100 mg DAILY PO Last administered on 04/28/17 08:14 ; Admin Dose 100 MG; Start 04/16/17 at 09:00 Nicotine (Nicoderm 14 Mg/ 24hr) 1 patch DAILY TRANSDERM Last administered on 08:15; Admin Dose 1 PATCH; Start 04/16/17 at 09:00 Hydralazine HCl (Apresoline) 10 mg Q4H PRN IV SBP > 160 Last administered on 06:17; Admin Dose 10 MG; Start 04/16/17 at 00:30 Miscellaneous Information 1 ea NOTE XX ; Start 04/16/17 at 00:40 Glucose (Glutose) 15 gm Q15M PRN PO DECREASED GLUCOSE; Start 04/16/17 at 00:40 Glucose (Glutose) 22.5 gm Q15M PRN PO DECREASED GLUCOSE; Start 04/16/17 at 00: 40 Dextrose (D50w Syringe) 25 ml Q15M PRN IV DECREASED GLUCOSE; Start 04/16/17 at 00:40 Dextrose (D50w Syringe) 50 ml Q15M PRN IV DECREASED GLUCOSE; Start 04/16/17 at 00:40 Glucagon (Glucagen) 1 mg Q15M PRN IM DECREASED GLUCOSE; Start 04/16/17 at 00:40 Glucose (Glutose) 15 gm Q15M PRN BUCCAL DECREASED GLUCOSE; Start 04/16/17 at 00 :40 Miscellaneous Information (Flu Vaccine Previously Dispensed) FLU VACCINE PREVIOU... NOTE PRN XX NOTE; Start 04/16/17 at 01:30 Diagnostic Test (Pha) (Accu-Chek) 1 ea 02 XX ; Start 04/17/17 at 02:00 Magnesium Hydroxide (Milk Of Mag) 30 ml DAILY PRN PO CONSTIPATION Last administered on 04/26/17 20:58; Admin Dose 30 ML; Start 04/16/17 at 13:30 Bisacodyl (Dulcolax Supp) 10 mg DAILY PRN [place] CONSTIPATION Last administered on 04/24/17 17:03; Admin Dose 10 MG; Start 04/18/17 at 11:30 Capsaicin (Theragen) 1 applic TID PRN TOP pain Last administered on 04/26/17 20:47; Admin Dose 1 APPLIC; Start 04/20/17 at 15:30 Polyethylene Glycol (Miralax) 17 gm DAILY PRN NGT CONSTIPATION Last administered on 04/26/17 11:43; Admin Dose 17 GM; Start 04/24/17 at 13:00 Insulin Glargine (Lantus) 32 unit QHS SC Last administered on 04/27/17 21:04 ; Admin Dose 32 UNIT; Start 04/24/17 at 21:00 JERMAINE TEJADA Apr 28, 2017 11:13
[2017-04-28] MEDS: FUROSEMIDE 40 MG INJ IV SCH ×2 (11:30→17:40)
[2017-04-28 11:35] LABS: IRON 15 ug/dl (35-150)
[2017-04-28 11:45] LABS: TOTAL IRON BINDING CAPACITY 332 ug/dl (241-421)
[2017-04-28 12:08] LABS: CANCER ANTIGEN 125 42.2 U/ml (0.0-35.0); CARCINOEMBRYONIC ANTIGEN 1.6 ng/ml (0.0-5.0)
[2017-04-28 12:20] LABS: CANCER ANTIGEN 19-9 < 1.4 U/ml (0.0-37.0)
[2017-04-28 14:28] VITALS: BP 101/58; RESP 19
[2017-04-28] MEDS: ACETAMINOPHEN 325 MG TAB PO PRN ×2 (15:41→22:51)
[2017-04-28 20:00] VITALS: BP 136/65; RESP 20
[2017-04-28] MEDS: TAMSULOSIN (SR) 0.4 MG CAP PO SCH (20:41)
[2017-04-28] MEDS: INSULIN GLARGINE [LANtus] 3 ML PEN SC SCH (20:47)
[2017-04-29 02:00] VITALS: BP 123/58; RESP 20
[2017-04-29] MEDS: ACCU-CHEK XX SCH (02:00)
[2017-04-29 05:55] VITALS: BP 149/68; PULSE 94
[2017-04-29] MEDS: FUROSEMIDE 40 MG INJ IV SCH (05:58)
[2017-04-29 06:09] LABS: BASOPHILS % 0.3 % (0.0-2.0); EOSINOPHILS # 0.4 10^3/ul (0.0-0.5); EOSINOPHILS % 4.2 % (0.0-7.0); HEMATOCRIT 31.5 % (42.0-52.0); LYMPHOCYTES # 1.8 10^3/ul (0.8-2.9); LYMPHOCYTES % 20.1 % (15.0-51.0); MEAN CORPUSCULAR HEMOGLOBIN 27.5 pg (29.0-33.0); MEAN CORPUSCULAR HGB CONC 31.7 g/dl (32.0-37.0); MEAN CORPUSCULAR VOLUME 86.8 fl (82.0-101.0); MEAN PLATELET VOLUME 9.6 fl (7.4-10.4); MONOCYTE # 0.9 10^3/ul (0.3-0.9); MONOCYTES % 10.1 % (0.0-11.0); NEUTROPHIL # 5.9 10^3/ul (1.6-7.5); NEUTROPHILS % 64.9 % (39.0-77.0); PLATELET COUNT 255 10^3/UL (140-415); RED BLOOD COUNT 3.63 10^6/ul (4.70-6.10); RED CELL DISTRIBUTION WIDTH 13.8 % (11.5-14.5); WHITE BLOOD COUNT 9.1 10^3/ul (4.8-10.8)
[2017-04-29 07:02] LABS: CALCIUM 8.8 mg/dl (8.4-10.2); CREATININE 1.02 mg/dl (0.61-1.24); POTASSIUM 4.1 mmol/L (3.5-5.1)
[2017-04-29 07:39] VITALS: BP 134/63; RESP 19
[2017-04-29] MEDS: INSULIN ASPART [NOVOLOG] 3 ML PEN SC SCH ×6 (08:17→17:28)
[2017-04-29] MEDS: NICOTINE (14 MG/24 HR) PATCH TRANSDERM SCH (09:15)
[2017-04-29] MEDS: FERROUS SULFATE (EC) 325 MG TAB PO SCH (09:15)
[2017-04-29] MEDS: GABAPENTIN 300 MG CAP PO SCH ×2 (09:18→13:28)
[2017-04-29] MEDS: LOSARTAN 50 MG TAB PO SCH (09:18)
[2017-04-29] MEDS: ASPIRIN 81 MG TAB PO SCH (09:18)
[2017-04-29] MEDS: NIFEdipine (XL) 90 MG TAB PO SCH (09:18)
[2017-04-29] MEDS: THIAMINE 100 MG TAB PO SCH (09:18)
[2017-04-29] MEDS: morphine 2 MG INJ IV PRN (09:25)
--- NOTE | 2017-04-29 11:11 | PDOCDIS ---
Discharge Instructions CONDITION Patient Condition: Stable HOME CARE INSTRUCTIONS: Special Diet: Carbohydrate Controlled ACTIVITY: Activity Restrictions: Slowly Increase Activity FOLLOW UP/APPOINTMENTS Follow-up Plan Please see her primary care doctor in the clinic in the next 1-2 weeks. JERMAINE TEJADA Apr 29, 2017 11:11
--- NOTE | 2017-04-29 11:56 | CONS ---
Date/Time of Note Date/Time of Note DATE: 04/29/17 TIME: 11:54 Assessment/Plan Assessment/Plan Chief Complaint/Hosp Course Pulmonary consult dictated [id number] Problems: Additional Assessment/Plan Assessment and recommendations; 1. Patient admitted with recurrent right pleural effusion status post thoracentesis with significant clinical and radiological improvement. 2. Diastolic dysfunction. 3. Pleural effusion is exudative now. However repeated thoracentesis can transform and transudative into an exudative effusion. 4. Other comorbidities including diabetes, hypertension, COPD, BPH and anemia, all appear fairly stable. 5. Nonspecific mediastinal adenopathy. Patient can be discharged home. Patient will need to have a VATS pleurodesis done if he has recurrent right pleural effusion. Follow-up chest x-ray in about 1 week's time is recommended. Consultation Date/Type/Reason Admit Date/Time Apr 15, 2017 at 23:51 Initial Consult Date 04/27/17 Type of Consultation: Pulmonary 24 HR Interval Summary Free Text/Dictation Patient's condition is stable. Laying comfortably flat in bed. Denies any shortness of breath, chest pain. General exam; elderly male, awake and alert. Currently in no distress. Exam/Review of Systems Vital Signs Vitals Vital Signs Date Time Temp Pulse Resp B/P Pulse Ox O2 Delivery O2 Flow Rate FiO2 04/29/17 07:39 98.6 97 19 134/63 93 04/29/17 05:55 Room Air 04/28/17 07:41 2.0 04/26/17 21:49 21 Intake and Output 04/28/17 04/28/17 04/29/17 15:00 23:00 07:00 Intake Total 600 ml 1260 ml 1020 ml Output Total 600 ml 200 ml 1575 ml Balance 0 ml 1060 ml -555 ml Exam HEENT exam; supple neck, JVD difficult to see because of presence of dennis.. No lymphadenopathy. Midline trachea. No thyromegaly. Patient is edentulous. Chest exam; diminished but clear breath sounds. S1-S2 audible, no murmurs. Regular rhythm. Abdomen exam; soft, nontender. No organomegaly. Bowel sounds audible. Extremity exam; no edema. Pulses 1+ bilaterally. EXECUTIVE RECEPTIONIST exam; no focal deficit. Results Result Diagram: 04/29/17 0539 04/29/17 0539 Results 24 hrs Laboratory Tests Test 04/28/17 12:41 04/28/17 17:13 04/28/17 20:44 04/29/17 05:39 Bedside Glucose 151 141 140 White Blood Count 9.1 Red Blood Count 3.63 L Hemoglobin 10.0 L Hematocrit 31.5 L Mean Corpuscular Volume 86.8 Mean Corpuscular Hemoglobin 27.5 L Mean Corpuscular Hemoglobin Concent 31.7 L Red Cell Distribution Width 13.8 Platelet Count 255 Mean Platelet Volume 9.6 Neutrophils % 64.9 Lymphocytes % 20.1 Monocytes % 10.1 Eosinophils % 4.2 Basophils % 0.3 Nucleated Red Blood Cells % 0.0 Neutrophils # 5.9 Lymphocytes # 1.8 Monocytes # 0.9 Eosinophils # 0.4 Basophils # 0.0 Nucleated Red Blood Cells # 0.0 Sodium Level 142 Potassium Level 4.1 Chloride Level 99 Carbon Dioxide Level 34 H Anion Gap 13 Blood Urea Nitrogen 33 H Creatinine 1.02 Glucose Level 229 H Calcium Level 8.8 Test 04/29/17 08:11 Bedside Glucose 169 Medications Medications Current Medications Lorazepam (Ativan) 0.5 mg Q8H PRN PO ANXIETY; Start 04/16/17 at 00:30 Ondansetron HCl (Zofran Inj) 4 mg Q6H PRN IV NAUSEA AND/OR VOMITING; Start 04/16/17 at 00:30 Nitroglycerin (Nitroglycerin (Sl Tab) 0.4 Mg) 1 tab Q5M PRN SL CHEST PAIN; Start 04/16/17 at 00:30 Acetaminophen (Tylenol Tab) 650 mg Q6H PRN PO PAIN LEVEL 1-3 OR FEVER Last administered on 04/28/17 22:51; Admin Dose 650 MG; Start 04/16/17 at 00:30 Morphine Sulfate (morphine) 2 mg Q4H PRN IV PAIN LEVEL 7-10 Last administered on 04/29/17 09:25; Admin Dose 2 MG; Start 04/16/17 at 00:30 Aspirin (Aspirin) 81 mg DAILY PO Last administered on 04/29/17 09:18; Admin Dose 81 MG; Start 04/16/17 at 09:00 Ferrous Sulfate (Ferrous Sulfate (Ec)) 325 mg BID PO Last administered on 04/29 09:15; Admin Dose 325 MG; Start 04/16/17 at 09:00 Gabapentin (Neurontin) 300 mg TID PO Last administered on 04/29/17 09:18; Admin Dose 300 MG; Start 04/16/17 at 09:00 Losartan Potassium (Cozaar) 100 mg DAILY PO Last administered on 04/29/17 09: 18; Admin Dose 100 MG; Start 04/16/17 at 09:00 Nifedipine (Procardia Xl) 90 mg DAILY PO Last administered on 04/29/17 09:18 ; Admin Dose 90 MG; Start 04/16/17 at 09:00 Salmeterol Xinafoate/ Fluticasone (Advair 250/50 Diskus) 1 inh BID INH Last administered on 04/28/17 20:42; Admin Dose 1 INH; Start 04/16/17 at 00:30 Tamsulosin HCl (Flomax) 0.4 mg HS PO Last administered on 04/28/17 20:41; Admin Dose 0.4 MG; Start 04/16/17 at 21:00 Thiamine HCl (Vitamin B1) 100 mg DAILY PO Last administered on 04/29/17 09:18 ; Admin Dose 100 MG; Start 04/16/17 at 09:00 Nicotine (Nicoderm 14 Mg/ 24hr) 1 patch DAILY TRANSDERM Last administered on 09:15; Admin Dose 1 PATCH; Start 04/16/17 at 09:00 Hydralazine HCl (Apresoline) 10 mg Q4H PRN IV SBP > 160 Last administered on 06:17; Admin Dose 10 MG; Start 04/16/17 at 00:30 Miscellaneous Information 1 ea NOTE XX ; Start 04/16/17 at 00:40 Glucose (Glutose) 15 gm Q15M PRN PO DECREASED GLUCOSE; Start 04/16/17 at 00:40 Glucose (Glutose) 22.5 gm Q15M PRN PO DECREASED GLUCOSE; Start 04/16/17 at 00: 40 Dextrose (D50w Syringe) 25 ml Q15M PRN IV DECREASED GLUCOSE; Start 04/16/17 at 00:40 Dextrose (D50w Syringe) 50 ml Q15M PRN IV DECREASED GLUCOSE; Start 04/16/17 at 00:40 Glucagon (Glucagen) 1 mg Q15M PRN IM DECREASED GLUCOSE; Start 04/16/17 at 00:40 Glucose (Glutose) 15 gm Q15M PRN BUCCAL DECREASED GLUCOSE; Start 04/16/17 at 00 :40 Miscellaneous Information (Flu Vaccine Previously Dispensed) FLU VACCINE PREVIOU... NOTE PRN XX NOTE; Start 04/16/17 at 01:30 Diagnostic Test (Pha) (Accu-Chek) 1 ea 02 XX ; Start 04/17/17 at 02:00 Magnesium Hydroxide (Milk Of Mag) 30 ml DAILY PRN PO CONSTIPATION Last administered on 04/26/17 20:58; Admin Dose 30 ML; Start 04/16/17 at 13:30 Bisacodyl (Dulcolax Supp) 10 mg DAILY PRN AL CONSTIPATION Last administered on 04/24/17 17:03; Admin Dose 10 MG; Start 04/18/17 at 11:30 Capsaicin (Theragen) 1 applic TID PRN TOP pain Last administered on 04/26/17 20:47; Admin Dose 1 APPLIC; Start 04/20/17 at 15:30 Polyethylene Glycol (Miralax) 17 gm DAILY PRN NGT CONSTIPATION Last administered on 04/26/17 11:43; Admin Dose 17 GM; Start 04/24/17 at 13:00 Insulin Glargine 32 unit 32 unit QHS SC Last administered on 04/28/17 20:47; Admin Dose 32 UNIT; Start 04/24/17 at 21:00 Ferric Sodium Gluconate Complex/ Sodium Chloride (Ferrlecit/NS) 110 ml @ 100 mls/hr ONCE ONCE IVPB ; Start 04/29/17 at 13:00; Stop 04/29/17 at 14:05 DAILY LARIOS Apr 29, 2017 11:56
--- NOTE | 2017-04-29 12:40 | DS ---
DATE OF ADMISSION: 04/15/2017 DATE OF DISCHARGE: 04/29/2017 HISTORY OF PRESENT ILLNESS: A 62-year-old male originally admitted on 04/16/2017, being discharged home on 04/29/2017. The patient came in with worsening shortness of breath. He was admitted. He was found with pleural effusion on the right side of his lung. He underwent thoracentesis x2. There was some concern that the fluid came back as exudative in nature. Although per further discussion with pulmonary team the patient has had recurrent thoracentesis at least 3-4 in the last couple months and the process of doing the thoracentesis can actually cause the transudative fluid to appear exudative as the patient did not have any other fevers or chills. No signs of any weight loss or malignancies. The patient was also given breathing treatments and supplemental oxygen as needed. His shortness of breath symptoms improved. He also had some lower extremity swelling as well. An echocardiogram was ordered as well, the results are still pending by the time of this discharge summary, but the patient responded to IV Lasix as well. He was able to ambulate and tolerate a p.o. diet. He will need some home health physical therapy, which we are setting up for the patient at home, but he will be discharged home today in improved condition. There was a tumor workup performed for patient given the fact that there was a concern of possible exudative fluid as mentioned above. The results of these were essentially negative, although the CA-125 was slightly elevated. Again, patient did not have any signs of any weight loss or night sweats. No known lesions shown on his lung imaging studies. The patient was encouraged to follow up with primary care doctor and monitor for any signs of any weakness or weight loss or night sweats. The patient will be discharged home today improved condition. He was found with low iron levels and given IV iron as well. He will be discharged today with the following medications. DISCHARGE MEDICATIONS: 1. ProAir HFA 2 puffs inhaled q.6 hours. 2. Aspirin 81 mg daily. 3. Colace 100 mg daily. 4. Ferrous sulfate 325 mg b.i.d. 5. Lasix 20 mg p.o. b.i.d. 6. Gabapentin 300 mg t.i.d. 7. Aspart insulin 16 units with meals. 8. Lantus 48 units q.h.s. 9. Losartan 100 mg daily. 10. Nifedipine 90 mg daily. 11. Advair 250/50 inhaled b.i.d. 12. Flomax 0.4 mg at bedtime. 13. Thiamine 100 mg daily. 14. Nicotine patch as well. He has been encouraged to stop smoking. Per discussion with Pulmonary team as well. The patient likely will need to be evaluated if he does have to come back to the hospital for a VATS pleurodesis if he continues to have recurrent pleural effusion. FINAL DIAGNOSES: 1. Shortness of breath likely secondary to combination of patient's chronic obstructive pulmonary disease and pleural effusion, status post thoracentesis x2 on this admission. 2. Type 2 diabetes with A1c of 10.4 on home insulin. 3. Benign prostatic hypertrophy. 4. History of left shoulder pain. 5. High cholesterol. 6. Diastolic dysfunction. 7. Essential hypertension. Time spent discharging patient 50 minutes. Dictated By: Geoff Barlow MD /carlos/missy /Document#: [id number]
[2017-04-29] MEDS ORDERED: SOD FERRIC GLUC COMPLX 125 MG in SOD CHLORIDE 0.9% 100 ML IVPB ONE (13:00)
[2017-04-29] MEDS: SALMETEROL/FLUTICASONE 250/50 INHA INH SCH (13:28)
[2017-04-29] MEDS: CAPSAICIN 0.025% 60 GM CR TOP PRN (13:29)
[2017-04-29 14:50] VITALS: BP 110/65; RESP 20
== END 2017-04-29 18:05 | disposition home or self-care (01) | DRG 191 ==
LOC: TEL 23:51 → MS2 04-18 14:27
PROVIDERS: ADMIT Internal Medicine; ATTEND Internal Medicine
PROC: 0W993ZZ Drainage of Right Pleural Cavity, Percutaneous Approach (ICD-10-PCS; principal; 2017-04-17)
PROC: 0W993ZZ Drainage of Right Pleural Cavity, Percutaneous Approach (ICD-10-PCS; 2017-04-24)
DX: J44.9 Chronic obstructive pulmonary disease, unspecified (principal); I50.32 Chronic diastolic (congestive) heart failure; I11.0 Hypertensive heart disease with heart failure; J90 Pleural effusion, not elsewhere classified; E10.9 Type 1 diabetes mellitus without complications; N40.0 Benign prostatic hyperplasia without lower urinary tract symptoms; R59.0 Localized enlarged lymph nodes; M25.512 Pain in left shoulder; R60.0 Localized edema; E78.00 Pure hypercholesterolemia, unspecified; Z79.82 Long term (current) use of aspirin; Z79.4 Long term (current) use of insulin; Z87.891 Personal history of nicotine dependence
CPT/HCPCS: 71010; 71020; 73030; 76942; 80048; 80053; 81001; 82105; 82378; 82728; 82945; 82962; 83036; 83540; 83615; 83735; 84100; 84157; 85025; 85610; 85730; 86301; 86304; 87070; 87086; 87102; 87116; 88104; 88305; 89051; 93970; 94640; 97110; 97116; 97162; 97165; 97530; 97535; J0360; J1815; J1940; J2270; J2916; J2930; J7512

== ENCOUNTER 2017-06-14 01:22 | Inpatient (IN) | END 2017-06-20 21:38 | disposition home or self-care (01) | DRG 871 ==

== ENCOUNTER 2017-08-21 23:09 | Inpatient (IN) | END 2017-09-18 17:50 | disposition home health service (06) | DRG 186 ==

== ENCOUNTER 2018-01-25 16:21 | Inpatient (IN) | END 2018-02-05 13:33 | disposition home health service (06) | DRG 291 ==

== ENCOUNTER 2018-02-25 09:49 | Day surgery (SDC) | END 2018-02-25 13:58 | disposition home or self-care (01) ==

== ENCOUNTER 2018-11-21 01:45 | Inpatient (IN) | payer BC ==
[~2018-11-21] VITALS: Ht 172.7 cm; Wt 94.4 kg
[~2018-11-21 01:45] MED LIST changes: +ACET325T33 PO; -ALBU8.5H3 INH; +ALBU8.5H8 INH; +ASPI-831 PO; -ASPI81TA3 PO; +CARV6.2579 PO; +DOCU-216 PO; -FURO-110 PO; +FURO40TA4 PO; -GABA100C14 PO; +ISOS30TA67 PO; -LEVO750T25 PO; +LOSA100T15 PO; -LOSA100T7 PO; +METO2.5T PO; +POLY17PO6 PO; +POTA20TA9 PO; -PRED20TA PO; +SPIR25TA PO
[2018-11-21 10:50] VITALS: BP 181/81; PULSE 81; RESP 18
[2018-11-21] MEDS ORDERED: hydrALAzine 20 MG INJ IV PRN (11:00)
[2018-11-21] MEDS ORDERED: NACL 0.9% 3 ML SYG IV SCH (11:30)
[2018-11-21] MEDS ORDERED: HYDROCODONE/APAP (5/325) TAB PO PRN (11:30)
[2018-11-21] MEDS ORDERED: ONDANSETRON 4 MG INJ IV PRN (11:30)
[2018-11-21] MEDS ORDERED: morphine 2 MG INJ IV PRN (11:30)
--- NOTE | 2018-11-21 11:52 | CONS ---
Assessment/Plan Assessment/Plan Assessment/Plan (Daily) 1. acute kidney injury on CKD IV 2. 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 h/o CHF 6. H/o DM II Plan: US renal To assess ffor CKD ECHO to assess for EF and Wall motion IVF NS at 80 cc/hr Cardura 4 mg pO QHS, Metoprolol 50mg BID, Hydralazine 50mg Q 8 hr, Nifedipine Xl stopped today Uric acid in AM labs will follow up Thanks for consultation Consultation Date/Type/Reason Admit Date/Time Nov 21, 2018 at 09:57 Date of Consultation: Nov 21, 2018 Type of Consult NEPHROLOGY Reason for Consultation Acute vs acute on chronic renal failure, Hyperkalemia Requesting Provider: BRIANDA TYLER NP Date/Time of Note DATE: 11/21/18 TIME: 11:52 Hx of Present Illness 63-year-old male with history of diabetes, hypertension, CHF, neuropathy, BPH, who came to the hospital due to reports of hyperglycemia and headache. Patient reports that his blood sugar at home has been in the 400-500s for the past 3 days. SBP more than 180s-190s Per labs creatinine at 4.02. BUN of 71. Blood glucose was elevated at 305. Renal has been consulted for acute vs acute on chronic renal failure No fever, no chills, no SOB, no abdominal pain, Past Medical History Medical History: diabetes, high cholesterol, hypertension Home Meds Active Scripts Metolazone* (Metolazone*) 2.5 Mg Tablet, 2.5 MG PO DAILY, #30 TAB 2 Refills Prov:JERMAINE TEJADA S. 02/04/18 Isosorbide Mononitrate* (Isosorbide Mononitrate*) 30 Mg Tab.er.24h, 30 MG PO DAILY, #30 2 Refills Prov:KEVIN TEJADAP S. 02/04/18 Spironolactone* (Aldactone*) 25 Mg Tablet, 25 MG PO DAILY, #30 TAB 2 Refills Prov:JERMAINE TEJADA S. 02/04/18 Insulin Glargine* (Lantus*) 100 Unit/Ml Soln, 25 UNIT SC QHS for 30 Days, #1 BOX 1 Refill Prov:MOI HAIRSTON 09/18/17 Docusate Sodium (Dok) 100 Mg Capsule, 100 MG PO BID for 30 Days, #60 CAP 3 Refills Prov:MOI HAIRSTON 09/18/17 Nifedipine (Procardia Xl) 90 Mg Tab.er.24, 90 MG PO DAILY for 30 Days, #30 TAB 2 Refills Prov:MOI HAIRSTON 09/18/17 Furosemide* (Furosemide*) 40 Mg Tablet, 40 MG PO BID DIURETICS for 30 Days, #60 TAB Prov:MOI HAIRSTON 09/06/17 Insulin Glargine* (Lantus*) 100 Unit/Ml Soln, 30 UNIT SC QHS for 10 Days, #1 BOTTLE 1 Refill may interchange; solostar syringe/ needles as needed Prov:TENISHA MENDEZ MD 06/20/17 Insulin Aspart* (Novolog Insulin Pen*) 100 Unit/Ml Soln, 10 UNIT SC WITH MEALS for 10 Days, #1 BOTTLE 10 days supply; september interchange. strips/lancets as needed Prov:TENISHA MENDEZ MD 06/20/17 Acetaminophen* (Tylenol*) 325 Mg Tablet, 650 MG PO Q6H PRN for PAIN LEVEL 1-3 OR FEVER for 1 Day, #1 TAB Prov:TENISHA MENDEZ MD 06/20/17 Thiamine* (Vitamin B-1*) 100 Mg Tablet, 100 MG PO DAILY for 30 Days, #30 TAB Prov:TENISHA MENDEZ MD 04/04/17 [Nicotine (14 Mg/24 Hr)] 1 PATCH PATCH No Conflict Check, 1 PATCH TRANSDERM DAILY for 10 Days, #20 Prov:TENISHA MENDEZ MD 04/04/17 Nifedipine (Procardia Xl) 90 Mg Tab.er.24, 90 MG PO DAILY, #30 TAB Prov:BRIANDA TYLER NP 02/18/17 Salmeterol Xinaf/Fluticasone* (Advair*) 250-50 Diskus Inhaler, 1 INH INH BID, #1 INH Prov:BRIANDA TYLER NP 02/18/17 Ferrous Sulfate* (Ferrous Sulfate*) 325 Mg Tabec, 325 MG PO BID for 30 Days, #60 TAB Prov:BRIANDA TYLER NP 02/18/17 Albuterol Sulfate* (Proair HFA*) 8.5 Gm Hfa.aer.ad, 2 PUFF INH Q6 for SHORTNESS OF BREATH for 14 Days, #1 INHALER Prov:BRIANDA TYLER AIRFREIGHT LOADING SUPERVISOR 02/18/17 Gabapentin* (Gabapentin*) 300 Mg Capsule, 300 MG PO TID for 30 Days, CAP Prov:NILES AYALA AIRFREIGHT LOADING SUPERVISOR 02/12/16 Aspirin (Aspirin) 81 Mg Chew, 81 MG PO DAILY for 30 Days, TAB Prov:NILES AYALA AIRFREIGHT LOADING SUPERVISOR 06/20/15 Reported Medications Potassium Chloride (Klor-Con M20) 20 Meq Tab.prt.sr, 20 MEQ PO DAILY 08/22/17 Polyethylene Glycol* (Miralax*) 17 Gm Powd.pack, 17 GM PO DAILY, #30 PACKET 08/22/17 Carvedilol* (Carvedilol*) 6.25 Mg Tablet, 6.25 MG PO BID, #60 TAB 08/22/17 Docusate Sodium* (Colace*) 100 Mg Capsule, 100 MG PO DAILY, #30 CAP 03/29/17 Tamsulosin Hcl* (Tamsulosin Hcl*) 0.4 Mg Cap.er.24h, 0.4 MG PO HS, CAP 03/29/17 Losartan Potassium* (Losartan Potassium*) 100 Mg Tablet, 100 MG PO DAILY, TAB 03/29/17 Medications Current Medications Hydralazine HCl (Apresoline) 10 mg Q4H PRN IV ELEVATED BP Last administered on 11/21/18at 11:16; Admin Dose 10 MG; Start 11/21/18 at 11:00 Sodium Chloride 1,000 ml @ 80 mls/hr [id number] IV ; Start 11/21/18 at 11:16 IV Flush (NS 3 ml) 3 ml PER PROTOCOL IV ; Start 11/21/18 at 11:30 Ondansetron HCl (Zofran Inj) 4 mg Q6H PRN IV NAUSEA/VOMITING; Start 11/21/18 at 11:30 Acetaminophen (Tylenol Tab) 650 mg Q6H PRN PO .PAIN 1-3 OR TEMP; Start 11/21/18 at 11:30 Acetaminophen/ Hydrocodone Bitart ([place] (5/325)) 1 tab Q6H PRN PO .MOD PAIN 4- 6; Start 11/21/18 at 11:30 Morphine Sulfate (morphine) 2 mg Q4H PRN IV .SEVERE PAIN 7-10; Start 11/21/18 at 11:30 Famotidine (Pepcid Iv) 20 mg Q12 IV ; Start 11/21/18 at 21:00 Heparin Sodium (Porcine) (Heparin (5000 Units/1ml)) 5,000 unit Q12 SC ; Start 11/21/18 at 21:00 Insulin Aspart (Novolog Insulin Pen) NOVOLOG *MILD* ALGORITHM WITH MEALS BEDTIME SC ; Start 11/21/18 at 12:00 Miscellaneous Information 1 ea NOTE XX ; Start 11/21/18 at 12:00 Glucose (Glutose) 15 gm Q15M PRN PO DECREASED GLUCOSE; Start 11/21/18 at 12:00 Glucose (Glutose) 22.5 gm Q15M PRN PO DECREASED GLUCOSE; Start 11/21/18 at 12:00 Dextrose (D50w Syringe) 25 ml Q15M PRN IV DECREASED GLUCOSE; Start 11/21/18 at 12:00 Dextrose (D50w Syringe) 50 ml Q15M PRN IV DECREASED GLUCOSE; Start 11/21/18 at 12:00 Glucagon (Glucagen) 1 mg Q15M PRN IM DECREASED GLUCOSE; Start 11/21/18 at 12:00 Glucose (Glutose) 15 gm Q15M PRN BUCCAL DECREASED GLUCOSE; Start 11/21/18 at 12:00 Allergies: Coded Allergies: No Known Allergies (Verified Allergy, Unknown, 02/25/18) Past Surgical History Past Surgical Hx: no surgical history, other Family History Significant Family History: no pertinent family hx Social History Alcohol Use: none Smoking Status: Former smoker Drug Use: none Exam/Review of Systems Exam Vitals Vital Signs Date Temp Pulse Resp B/P (MAP) Pulse Ox O2 O2 Flow FiO2 Time Delivery Rate 11/21/18 98.1 81 18 181/81 97 Nasal 2.0 10:50 (114) Cannula Constitutional: alert Psych: no complaints Head: normocephalic Eyes: nl conjunctiva ENMT: nl external ears & nose Neck: supple Respiratory: clear to auscultation, crackles/rales Cardiovascular: regular rate and rhythm, nl pulses Gastrointestinal: soft, non-tender Musculoskeletal: nl extremities to inspection Extremities: normal pulses Neurological: RANCH HAND II-XII intact, nl mental status, nl speech, nl strength Skin: nl turgor Lymph: nl lymph nodes Results Result Diagram: 11/21/18 1100 11/21/18 1100 Results 24hrs Laboratory Tests Test 11/21/18 11:00 White Blood Count 10.2 Red Blood Count 4.59 #L Hemoglobin 12.5 #L Hematocrit 39.1 #L Mean Corpuscular Volume 85.2 Mean Corpuscular Hemoglobin 27.2 L Mean Corpuscular Hemoglobin Concent 32.0 Red Cell Distribution Width 13.2 Platelet Count 196 Mean Platelet Volume 10.2 Immature Granulocytes % 0.300 Neutrophils % 76.8 Lymphocytes % 12.6 L Monocytes % 8.8 Eosinophils % 1.1 Basophils % 0.4 Nucleated Red Blood Cells % 0.0 Immature Granulocytes # 0.030 Neutrophils # 7.9 H Lymphocytes # 1.3 Monocytes # 0.9 Eosinophils # 0.1 Basophils # 0.0 Nucleated Red Blood Cells # 0.0 Sodium Level 140 Potassium Level 4.7 Chloride Level 101 Carbon Dioxide Level 27 Anion Gap 12 Blood Urea Nitrogen 71 H Creatinine 4.02 H Est Glomerular Filtrat Rate mL/min 15 L Glucose Level 305 H Calcium Level 8.9 Total Bilirubin 0.8 Direct Bilirubin 0.00 Indirect Bilirubin 0.8 Aspartate Amino Transf (AST/SGOT) 21 Alanine Aminotransferase (ALT/SGPT) 26 Alkaline Phosphatase 78 Total Protein 7.6 Albumin 3.9 Globulin 3.70 H Albumin/Globulin Ratio 1.05 Medications Medication Current Medications Hydralazine HCl (Apresoline) 10 mg Q4H PRN IV ELEVATED BP Last administered on 11/21/18at 11:16; Admin Dose 10 MG; Start 11/21/18 at 11:00 Sodium Chloride 1,000 ml @ 80 mls/hr [id number] IV ; Start 11/21/18 at 11:16 IV Flush (NS 3 ml) 3 ml PER PROTOCOL IV ; Start 11/21/18 at 11:30 Ondansetron HCl (Zofran Inj) 4 mg Q6H PRN IV NAUSEA/VOMITING; Start 11/21/18 at 11:30 Acetaminophen (Tylenol Tab) 650 mg Q6H PRN PO .PAIN 1-3 OR TEMP; Start 11/21/18 at 11:30 Acetaminophen/ Hydrocodone Bitart ([place] (5/325)) 1 tab Q6H PRN PO .MOD PAIN 4- 6; Start 11/21/18 at 11:30 Morphine Sulfate (morphine) 2 mg Q4H PRN IV .SEVERE PAIN 7-10; Start 11/21/18 at 11:30 Famotidine (Pepcid Iv) 20 mg Q12 IV ; Start 11/21/18 at 21:00 Heparin Sodium (Porcine) (Heparin (5000 Units/1ml)) 5,000 unit Q12 SC ; Start 11/21/18 at 21:00 Insulin Aspart (Novolog Insulin Pen) NOVOLOG *MILD* ALGORITHM WITH MEALS BEDTIME SC ; Start 11/21/18 at 12:00 Miscellaneous Information 1 ea NOTE XX ; Start 11/21/18 at 12:00 Glucose (Glutose) 15 gm Q15M PRN PO DECREASED GLUCOSE; Start 11/21/18 at 12:00 Glucose (Glutose) 22.5 gm Q15M PRN PO DECREASED GLUCOSE; Start 11/21/18 at 12:00 Dextrose (D50w Syringe) 25 ml Q15M PRN IV DECREASED GLUCOSE; Start 11/21/18 at 12:00 Dextrose (D50w Syringe) 50 ml Q15M PRN IV DECREASED GLUCOSE; Start 11/21/18 at 12:00 Glucagon (Glucagen) 1 mg Q15M PRN IM DECREASED GLUCOSE; Start 11/21/18 at 12:00 Glucose (Glutose) 15 gm Q15M PRN BUCCAL DECREASED GLUCOSE; Start 11/21/18 at 12:00 BON GUERRERO MD Nov 21, 2018 11:52
[2018-11-21] MEDS ORDERED: DEXTROSE 50% 50 ML SYRINGE IV PRN ×2 (12:00)
[2018-11-21] MEDS ORDERED: GLUCOSE GEL 15 GRAM TUBE PO PRN ×2 (12:00)
[2018-11-21] MEDS ORDERED: GLUCAGON 1 MG INJ IM PRN (12:00)
[2018-11-21] MEDS ORDERED: GLUCOSE GEL 15 GRAM TUBE BUCCAL PRN (12:00)
[2018-11-21 12:15] VITALS: BP 147/80; PULSE 79
[2018-11-21] MEDS: SOD CHLORIDE 0.9% 1,000 ML IV SCH (12:39)
[2018-11-21] MEDS: INSULIN ASPART [NOVOLOG] 3 ML PEN SC SCH ×4 (12:40→20:45)
--- NOTE | 2018-11-21 13:42 | HP ---
Date/Time of Note Date/Time of Note DATE: 11/21/18 TIME: 13:36 Assessment/Plan VTE Prophylaxis Risk score (from Nsg)>0 risk: 5 SCD applied (from Nsg): Yes Pharmacological prophylaxis: heparin Lines/Catheters IV Catheter Type (from Nrsg): Saline Lock Urinary Cath still in place: Yes Reason Cath still needed: other (indicate) (montor I&O) Assessment/Plan Hospital Course Assessment and plan 1. Diabetes. Follow-up on A1c. Will resume insulin regimen. Will get staff development educator to follow. Dip Unit Operator consultation pending clinical course. 2. Hypertension. Will resume patient's home medications. Will adjust as needed. 3. Acute renal insufficiency. Suspect on CKD. Will get nephrology consultation. Monitor lites. Follow-up on renal panel. Grab Operator consultation is pending.Start on IV fluids. 4. BPH. Continue on Flomax. 5. Diabetic neuropathy. On Neurontin. 6. History of CHF. Continue beta-james and ASA. ARB on hold due to renal insufficiency. No reports of chest pain or shortness of breath at this time. O2 PRN 7. Obesity. Weight reduction was advised. Discussed POC with Dr. Barlow Result Diagram: 11/21/18 1100 11/21/18 1100 Results 24hrs Laboratory Tests Test 11/21/18 11:00 11/21/18 12:36 White Blood Count 10.2 Red Blood Count 4.59 #L Hemoglobin 12.5 #L Hematocrit 39.1 #L Mean Corpuscular Volume 85.2 Mean Corpuscular Hemoglobin 27.2 L Mean Corpuscular Hemoglobin Concent 32.0 Red Cell Distribution Width 13.2 Platelet Count 196 Mean Platelet Volume 10.2 Immature Granulocytes % 0.300 Neutrophils % 76.8 Lymphocytes % 12.6 L Monocytes % 8.8 Eosinophils % 1.1 Basophils % 0.4 Nucleated Red Blood Cells % 0.0 Immature Granulocytes # 0.030 Neutrophils # 7.9 H Lymphocytes # 1.3 Monocytes # 0.9 Eosinophils # 0.1 Basophils # 0.0 Nucleated Red Blood Cells # 0.0 Sodium Level 140 Potassium Level 4.7 Chloride Level 101 Carbon Dioxide Level 27 Anion Gap 12 Blood Urea Nitrogen 71 H Creatinine 4.02 H Est Glomerular Filtrat Rate mL/min 15 L Glucose Level 305 H Calcium Level 8.9 Total Bilirubin 0.8 Direct Bilirubin 0.00 Indirect Bilirubin 0.8 Aspartate Amino Transf (AST/SGOT) 21 Alanine Aminotransferase (ALT/SGPT) 26 Alkaline Phosphatase 78 Total Protein 7.6 Albumin 3.9 Globulin 3.70 H Albumin/Globulin Ratio 1.05 Bedside Glucose 294 H HPI/ROS Admit Date/Time Admit Date/Time Nov 21, 2018 at 09:57 Hx of Present Illness This is a 63-year-old male with history of diabetes, hypertension, CHF, neuropathy, BPH, who came to the hospital due to reports of hyperglycemia and headache. Patient reports that his blood sugar at home has been in the 400-500s for the past 3 days. He does report compliance with his home medication but states that his blood glucose has still been elevated. He also reported having headache that starts in the back of his head but goes to the front of his head. Denies any motor deficit or any slurred speech or any chest pain or shortness of breath. Patient did go to [facility] initially and was also found to have acute renal failure. Due to insurance issues he was brought to [facility] in hospital for further evaluation. Initial blood pressure was taken that was elevated at 181/81. Per labs creatinine at 4.02. BUN of 71. Blood glucose was elevated at 305. Patient denies any dysuria or oliguria or anuria. Currently patient remains alert and oriented. Denies any headache at this time. Alvarez catheter seen in place. We will evaluate him for the aformentiond issues. ROS 12 point review of systems obtained and entirely negative except as mentioned in the history of present illness PMH/Family/Social Past Medical History Medical/surgical history 1. CKD 2. Hypertension 3. Obesity 4. Diabetes 5. BPH 6. CHF Medications Current Medications Hydralazine HCl (Apresoline) 10 mg Q4H PRN IV ELEVATED BP Last administered on 11/21/18at 11:16; Admin Dose 10 MG; Start 11/21/18 at 11:00 Sodium Chloride 1,000 ml @ 80 mls/hr [id number] IV Last administered on 11/21/18at 12:39; Admin Dose 80 MLS/HR; Start 11/21/18 at 11:16 IV Flush (NS 3 ml) 3 ml PER PROTOCOL IV ; Start 11/21/18 at 11:30 Ondansetron HCl (Zofran Inj) 4 mg Q6H PRN IV NAUSEA/VOMITING; Start 11/21/18 at 11:30 Acetaminophen (Tylenol Tab) 650 mg Q6H PRN PO .PAIN 1-3 OR TEMP; Start 11/21/18 at 11:30 Acetaminophen/ Hydrocodone Bitart ([place] (5/325)) 1 tab Q6H PRN PO .MOD PAIN 4- 6; Start 11/21/18 at 11:30 Morphine Sulfate (morphine) 2 mg Q4H PRN IV .SEVERE PAIN 7-10; Start 11/21/18 at 11:30 Famotidine (Pepcid Iv) 20 mg Q12 IV ; Start 11/21/18 at 21:00 Heparin Sodium (Porcine) (Heparin (5000 Units/1ml)) 5,000 unit Q12 SC ; Start 11/21/18 at 21:00 Insulin Aspart (Novolog Insulin Pen) NOVOLOG *MILD* ALGORITHM WITH MEALS BEDTIME SC Last administered on 11/21/18at 12:40; Admin Dose 4 UNIT; Start 11/21/18 at 12:00 Miscellaneous Information 1 ea NOTE XX ; Start 11/21/18 at 12:00 Glucose (Glutose) 15 gm Q15M PRN PO DECREASED GLUCOSE; Start 11/21/18 at 12:00 Glucose (Glutose) 22.5 gm Q15M PRN PO DECREASED GLUCOSE; Start 11/21/18 at 12:00 Dextrose (D50w Syringe) 25 ml Q15M PRN IV DECREASED GLUCOSE; Start 11/21/18 at 12:00 Dextrose (D50w Syringe) 50 ml Q15M PRN IV DECREASED GLUCOSE; Start 11/21/18 at 12:00 Glucagon (Glucagen) 1 mg Q15M PRN IM DECREASED GLUCOSE; Start 11/21/18 at 12:00 Glucose (Glutose) 15 gm Q15M PRN BUCCAL DECREASED GLUCOSE; Start 11/21/18 at 12:00 Albuterol (Ventolin Hfa) 2 puff Q6 INH ; Start 11/21/18 at 18:00 Aspirin (Aspirin) 81 mg DAILY PO ; Start 11/22/18 at 09:00 Carvedilol (Coreg) 6.25 mg BID PO ; Start 11/21/18 at 21:00 Ferrous Sulfate (Ferrous Sulfate (Ec)) 325 mg BID PO ; Start 11/21/18 at 21:00 Gabapentin (Neurontin) 300 mg TID PO ; Start 11/21/18 at 21:00 Insulin Aspart (Novolog Insulin Pen) 10 unit WITH MEALS SC ; Start 11/21/18 at 17:35; Status UNV Insulin Glargine (Lantus) 25 units QHS SC ; Start 11/21/18 at 21:00; Status UNV Insulin Glargine (Lantus) 30 units QHS SC ; Start 11/21/18 at 21:00; Status UNV Isosorbide Mononitrate (Imdur) 30 mg DAILY PO ; Start 11/22/18 at 09:00; Status UNV Nifedipine (Procardia Xl) 90 mg DAILY PO ; Start 11/22/18 at 09:00; Status UNV Tamsulosin HCl (Flomax) 0.4 mg HS PO ; Start 11/21/18 at 21:00; Status UNV Thiamine HCl (Vitamin B1) 100 mg DAILY PO ; Start 11/22/18 at 09:00; Status UNV Miscellaneous Information 1 inh BID INH ; Start 11/21/18 at 21:00; Status UNV Coded Allergies: No Known Allergies (Verified Allergy, Unknown, 02/25/18) Past Surgical History Past Surgical Hx: no surgical history Family History Significant Family History: hypertension Social History Smoking Status: Former smoker Exam/Review of Systems Vital Signs Vitals Vital Signs Date Temp Pulse Resp B/P (MAP) Pulse Ox O2 O2 Flow FiO2 Time Delivery Rate 11/21/18 79 147/80 12:15 (102) 11/21/18 98.1 18 97 Nasal 2.0 10:50 Cannula Exam Constitutional: alert, oriented Psych: nl mood/affect Head: normocephalic Respiratory: clear to auscultation Cardiovascular: other (Regular rate) Neurological: nl mental status, nl speech Skin: nl BRIANDA Candelario NP Nov 21, 2018 13:42
[2018-11-21 14:30] VITALS: BP 128/78; PULSE 80; RESP 17
[2018-11-21] MEDS ORDERED: ALBUTEROL HFA 8 GM INHALER INH PRN (18:00)
--- NOTE | 2018-11-21 18:10 | CONS ---
Assessment/Plan Assessment/Plan Problems: (1) Diabetes mellitus type 2 in obese Status: Chronic Comment: Control is inadequate. We can go ahead and add in a DPP 4 inhibitor drug to this regimen to try and help smooth things over. I would not use a drug such as PA glitazone given that he is already been on other medications famous for fluid retention which is not a positive thing given his current renal s tatus. Adjust his insulins to bring him under better control setting. (2) Essential hypertension Status: Chronic Comment: Given his underlying medical issues I do not believe that the usage of tamsulosin would be the best choice we can substitute this with an alpha-james for blood pressure, use a cardioselective beta-james given that he has COPD, he has hydralazine for his heart failure even though his preserved ejection frac tion heart failure, titrate from there I would not use minoxidil I would not use Procardia (3) Prostatic hypertrophy Status: Chronic Comment: Position alpha blockade over to once effective for blood pressure (4) Chronic kidney disease, stage 3 (moderate) Status: Chronic Comment: Noted. He had normal renal function a few years ago but last year his kidney function was declining. He has had a significant decline in function recently. Hopefully this will be volume status that we can correct while in this hospitalization (5) Acute kidney injury Status: Acute Comment: As per nephrology (6) Vitamin D deficiency Status: Chronic Comment: Check levels now (7) Diastolic dysfunction Status: Chronic Comment: Blood pressure and pulse control (8) COPD (chronic obstructive pulmonary disease) Status: Chronic Comment: Tinea with Breo, add in Spiriva Montella cast Qualifiers: Qualified Codes: J43.1 - Panlobular emphysema Consultation Date/Type/Reason Admit Date/Time Nov 21, 2018 at 09:57 Date of Consultation: Nov 21, 2018 Type of Consult Endocrinology Reason for Consultation Is mellitus type II with hemoglobin A1c above 12; COPD; possible sleep apnea; diastolic dysfunction with preserved ejection fraction; hyperlipidemia; hypertension; acute kidney injury on chronic kidney disease stage III; benign prostatic hypertrophy; Requesting Provider: BRIANDA TYLER NP Date/Time of Note DATE: 11/21/18 TIME: 18:04 Hx of Present Illness 63-year-old gentleman admitted to the hospital on transfer from [facility]. He had markedly abnormal sugars with an elevated A1c as well as pleural effusion. He has history of chronic right pleural effusion dating back to 2017 with a negative work-up and had actually had a Pleurx catheter for this which was removed last year. He is on a multiple daily injection regimen of insulin at home. Primary care physician is Dr. Nevaeh Nicole Past Medical History Medical History: congestive heart failure (Diastolic dysfunction), diabetes (Beatties mellitus type II complicated by chronic kidney disease and diabetic peripheral neuropathy), high cholesterol, hypertension, renal disease (Chronic kidney disease stage III now with acute renal insufficiency), other (COPD; history of right pleural effusion;) Home Meds Active Scripts Metolazone* (Metolazone*) 2.5 Mg Tablet, 2.5 MG PO DAILY, #30 TAB 2 Refills Prov:JERMAINE TEJADA S. 02/04/18 Isosorbide Mononitrate* (Isosorbide Mononitrate*) 30 Mg Tab.er.24h, 30 MG PO DAILY, #30 2 Refills Prov:JERMAINE TEJADA S. 02/04/18 Spironolactone* (Aldactone*) 25 Mg Tablet, 25 MG PO DAILY, #30 TAB 2 Refills Prov:JERMAINE TEJADA S. 02/04/18 Insulin Glargine* (Lantus*) 100 Unit/Ml Soln, 25 UNIT SC QHS for 30 Days, #1 BOX 1 Refill Prov:MOI HAIRSTON 09/18/17 Docusate Sodium (Dok) 100 Mg Capsule, 100 MG PO BID for 30 Days, #60 CAP 3 Refills Prov:MOI HAIRSTON 09/18/17 Nifedipine (Procardia Xl) 90 Mg Tab.er.24, 90 MG PO DAILY for 30 Days, #30 TAB 2 Refills Prov:MOI HAIRSTON 09/18/17 Furosemide* (Furosemide*) 40 Mg Tablet, 40 MG PO BID DIURETICS for 30 Days, #60 TAB Prov:MOI HAIRSTON 09/06/17 Insulin Glargine* (Lantus*) 100 Unit/Ml Soln, 30 UNIT SC QHS for 10 Days, #1 BOTTLE 1 Refill may ; solostar syringe/ needles as needed Prov:TENISHA MENDEZ MD 06/20/17 Insulin Aspart* (Novolog Insulin Pen*) 100 Unit/Ml Soln, 10 UNIT SC WITH MEALS for 10 Days, #1 BOTTLE 10 days supply; september. strips/lancets as needed Prov:TENISHA MENDEZ MD 06/20/17 Acetaminophen* (Tylenol*) 325 Mg Tablet, 650 MG PO Q6H PRN for PAIN LEVEL 1-3 OR FEVER for 1 Day, #1 TAB Prov:TENISHA MENDEZ MD 06/20/17 Thiamine* (Vitamin B-1*) 100 Mg Tablet, 100 MG PO DAILY for 30 Days, #30 TAB Prov:TENISHA MENDEZ MD 04/04/17 [Nicotine (14 Mg/24 Hr)] 1 PATCH PATCH No Conflict Check, 1 PATCH TRANSDERM DAILY for 10 Days, #20 Prov:TENISHA MENDEZ MD 04/04/17 Nifedipine (Procardia Xl) 90 Mg Tab.er.24, 90 MG PO DAILY, #30 TAB Prov:BRIANDA TYLER NP 02/18/17 Salmeterol Xinaf/Fluticasone* (Advair*) 250-50 Diskus Inhaler, 1 INH INH BID, #1 INH Prov:BRIANDA TYLER NP 02/18/17 Ferrous Sulfate* (Ferrous Sulfate*) 325 Mg Tabec, 325 MG PO BID for 30 Days, #60 TAB Prov:BRIANDA TYLER NP 02/18/17 Albuterol Sulfate* (Proair HFA*) 8.5 Gm Hfa.aer.ad, 2 PUFF INH Q6 for SHORTNESS OF BREATH for 14 Days, #1 INHALER Prov:BRIANDA TYLER NP 02/18/17 Gabapentin* (Gabapentin*) 300 Mg Capsule, 300 MG PO TID for 30 Days, CAP Prov:NILES AYALA NP 02/12/16 Aspirin (Aspirin) 81 Mg Chew, 81 MG PO DAILY for 30 Days, TAB Prov:NILES AYALA NP 06/20/15 Reported Medications Potassium Chloride (Klor-Con M20) 20 Meq Tab.prt.sr, 20 MEQ PO DAILY 08/22/17 Polyethylene Glycol* (Miralax*) 17 Gm Powd.pack, 17 GM PO DAILY, #30 PACKET 08/22/17 Carvedilol* (Carvedilol*) 6.25 Mg Tablet, 6.25 MG PO BID, #60 TAB 08/22/17 Docusate Sodium* (Colace*) 100 Mg Capsule, 100 MG PO DAILY, #30 CAP 03/29/17 Tamsulosin Hcl* (Tamsulosin Hcl*) 0.4 Mg Cap.er.24h, 0.4 MG PO HS, CAP 03/29/17 Losartan Potassium* (Losartan Potassium*) 100 Mg Tablet, 100 MG PO DAILY, TAB 03/29/17 Medications Current Medications Hydralazine HCl (Apresoline) 10 mg Q4H PRN IV ELEVATED BP Last administered on 11/21/18at 11:16; Admin Dose 10 MG; Start 11/21/18 at 11:00 Sodium Chloride 1,000 ml @ 80 mls/hr [id number] IV Last administered on 11/21/18at 12:39; Admin Dose 80 MLS/HR; Start 11/21/18 at 11:16 IV Flush (NS 3 ml) 3 ml PER PROTOCOL IV ; Start 11/21/18 at 11:30 Ondansetron HCl (Zofran Inj) 4 mg Q6H PRN IV NAUSEA/VOMITING; Start 11/21/18 at 11:30 Acetaminophen (Tylenol Tab) 650 mg Q6H PRN PO .PAIN 1-3 OR TEMP; Start 11/21/18 at 11:30 Acetaminophen/ Hydrocodone Bitart ([place] (5/325)) 1 tab Q6H PRN PO .MOD PAIN 4- 6; Start 11/21/18 at 11:30 Morphine Sulfate (morphine) 2 mg Q4H PRN IV .SEVERE PAIN 7-10; Start 11/21/18 at 11:30 Famotidine (Pepcid Iv) 20 mg Q12 IV ; Start 11/21/18 at 21:00 Heparin Sodium (Porcine) (Heparin (5000 Units/1ml)) 5,000 unit Q12 SC ; Start 11/21/18 at 21:00 Insulin Aspart (Novolog Insulin Pen) NOVOLOG *MILD* ALGORITHM WITH MEALS BEDTIME SC Last administered on 11/21/18at 17:26; Admin Dose 5 UNIT; Start 11/21/18 at 12:00 Miscellaneous Information 1 ea NOTE XX ; Start 11/21/18 at 12:00 Glucose (Glutose) 15 gm Q15M PRN PO DECREASED GLUCOSE; Start 11/21/18 at 12:00 Glucose (Glutose) 22.5 gm Q15M PRN PO DECREASED GLUCOSE; Start 11/21/18 at 12:00 Dextrose (D50w Syringe) 25 ml Q15M PRN IV DECREASED GLUCOSE; Start 11/21/18 at 12:00 Dextrose (D50w Syringe) 50 ml Q15M PRN IV DECREASED GLUCOSE; Start 11/21/18 at 12:00 Glucagon (Glucagen) 1 mg Q15M PRN IM DECREASED GLUCOSE; Start 11/21/18 at 12:00 Glucose (Glutose) 15 gm Q15M PRN BUCCAL DECREASED GLUCOSE; Start 11/21/18 at 12:00 Albuterol (Ventolin Hfa) 2 puff Q6 PRN INH SHORTNESS OF BREATH; Start 11/21/18 at 18:00 Aspirin (Aspirin) 81 mg DAILY PO ; Start 11/22/18 at 09:00 Ferrous Sulfate (Ferrous Sulfate (Ec)) 325 mg BID PO ; Start 11/21/18 at 21:00 Gabapentin (Neurontin) 300 mg TID PO ; Start 11/21/18 at 21:00 Insulin Aspart (Novolog Insulin Pen) 10 unit WITH MEALS SC Last administered on 11/21/18at 17:25; Admin Dose 10 UNIT; Start 11/21/18 at 17:35 Isosorbide Mononitrate (Imdur) 30 mg DAILY PO ; Start 11/22/18 at 09:00 Thiamine HCl (Vitamin B1) 100 mg DAILY PO ; Start 11/22/18 at 09:00 Fluticasone/ Vilanterol (Breo Ellipta 200-25 Mcg Inh) 1 inh DAILY INH ; Start 11/22/18 at 09:00 Insulin Glargine (Lantus) 10 units DAILY@2000 SC ; Start 11/21/18 at 20:00 Nifedipine (Procardia Xl) 30 mg DAILY PO ; Start 11/22/18 at 09:00; Status UNV Doxazosin Mesylate (Cardura) 4 mg HS PO ; Start 11/21/18 at 21:00; Status UNV Metoprolol Succinate (Toprol Xl) 50 mg BID PO ; Start 11/21/18 at 21:00; Status UNV Linagliptin (Tradjenta) 5 mg DAILY PO ; Start 11/21/18 at 18:00; Status UNV Hydralazine HCl (Apresoline) 50 mg Q8 PO ; Start 11/21/18 at 22:00; Status UNV Montelukast Sodium (Singulair) 10 mg HS PO ; Start 11/21/18 at 21:00; Status UN V Diagnostic Test (Pha) (Accu-Chek) 1 ea AC MEALS XX ; Start 11/22/18 at 07:30; Status UNV Diagnostic Test (Pha) (Accu-Chek) 1 ea 2 HOURS AFTER MEALS XX ; Start 11/21/18 at 20:05; Status UNV Allergies: Coded Allergies: No Known Allergies (Verified Allergy, Unknown, 02/25/18) Past Surgical History Past Surgical Hx: no surgical history, other (3 of right Pleurx catheter) Family History Significant Family History: diabetes, hypertension Social History Alcohol Use: occasionally Smoking Status: Former smoker Drug Use: none Exam/Review of Systems Exam Vitals Vital Signs Date Temp Pulse Resp B/P (MAP) Pulse Ox O2 O2 Flow FiO2 Time Delivery Rate 11/21/18 79 147/80 12:15 (102) 11/21/18 98.1 18 97 Nasal 2.0 10:50 Cannula Exam [id number] does not speak Farsi Constitutional: alert, oriented Head: normocephalic, atraumatic Neck: supple, non-tender Respiratory: clear to auscultation, normal air movement Cardiovascular: regular rate and rhythm, nl pulses Gastrointestinal: soft, nl liver, spleen, non-tender Results Result Diagram: 11/21/18 1100 11/21/18 1100 Results 24hrs Laboratory Tests Test 11/21/18 11:00 11/21/18 12:36 11/21/18 17:22 White Blood Count 10.2 Red Blood Count 4.59 #L Hemoglobin 12.5 #L Hematocrit 39.1 #L Mean Corpuscular Volume 85.2 Mean Corpuscular Hemoglobin 27.2 L Mean Corpuscular Hemoglobin Concent 32.0 Red Cell Distribution Width 13.2 Platelet Count 196 Mean Platelet Volume 10.2 Immature Granulocytes % 0.300 Neutrophils % 76.8 Lymphocytes % 12.6 L Monocytes % 8.8 Eosinophils % 1.1 Basophils % 0.4 Nucleated Red Blood Cells % 0.0 Immature Granulocytes # 0.030 Neutrophils # 7.9 H Lymphocytes # 1.3 Monocytes # 0.9 Eosinophils # 0.1 Basophils # 0.0 Nucleated Red Blood Cells # 0.0 Sodium Level 140 Potassium Level 4.7 Chloride Level 101 Carbon Dioxide Level 27 Anion Gap 12 Blood Urea Nitrogen 71 H Creatinine 4.02 H Est Glomerular Filtrat Rate mL/min 15 L Glucose Level 305 H Calcium Level 8.9 Total Bilirubin 0.8 Direct Bilirubin 0.00 Indirect Bilirubin 0.8 Aspartate Amino Transf (AST/SGOT) 21 Alanine Aminotransferase (ALT/SGPT) 26 Alkaline Phosphatase 78 Total Protein 7.6 Albumin 3.9 Globulin 3.70 H Albumin/Globulin Ratio 1.05 Bedside Glucose 294 H 307 H Medications Medication Current Medications Hydralazine HCl (Apresoline) 10 mg Q4H PRN IV ELEVATED BP Last administered on 11/21/18at 11:16; Admin Dose 10 MG; Start 11/21/18 at 11:00 Sodium Chloride 1,000 ml @ 80 mls/hr [id number] IV Last administered on 11/21/18at 12:39; Admin Dose 80 MLS/HR; Start 11/21/18 at 11:16 IV Flush (NS 3 ml) 3 ml PER PROTOCOL IV ; Start 11/21/18 at 11:30 Ondansetron HCl (Zofran Inj) 4 mg Q6H PRN IV NAUSEA/VOMITING; Start 11/21/18 at 11:30 Acetaminophen (Tylenol Tab) 650 mg Q6H PRN PO .PAIN 1-3 OR TEMP; Start 11/21/18 at 11:30 Acetaminophen/ Hydrocodone Bitart ([place] (5/325)) 1 tab Q6H PRN PO .MOD PAIN 4- 6; Start 11/21/18 at 11:30 Morphine Sulfate (morphine) 2 mg Q4H PRN IV .SEVERE PAIN 7-10; Start 11/21/18 at 11:30 Famotidine (Pepcid Iv) 20 mg Q12 IV ; Start 11/21/18 at 21:00 Heparin Sodium (Porcine) (Heparin (5000 Units/1ml)) 5,000 unit Q12 SC ; Start 11/21/18 at 21:00 Insulin Aspart (Novolog Insulin Pen) NOVOLOG *MILD* ALGORITHM WITH MEALS BEDTIME SC Last administered on 11/21/18at 17:26; Admin Dose 5 UNIT; Start 11/21/18 at 12:00 Miscellaneous Information 1 ea NOTE XX ; Start 11/21/18 at 12:00 Glucose (Glutose) 15 gm Q15M PRN PO DECREASED GLUCOSE; Start 11/21/18 at 12:00 Glucose (Glutose) 22.5 gm Q15M PRN PO DECREASED GLUCOSE; Start 11/21/18 at 12:00 Dextrose (D50w Syringe) 25 ml Q15M PRN IV DECREASED GLUCOSE; Start 11/21/18 at 12:00 Dextrose (D50w Syringe) 50 ml Q15M PRN IV DECREASED GLUCOSE; Start 11/21/18 at 12:00 Glucagon (Glucagen) 1 mg Q15M PRN IM DECREASED GLUCOSE; Start 11/21/18 at 12:00 Glucose (Glutose) 15 gm Q15M PRN BUCCAL DECREASED GLUCOSE; Start 11/21/18 at 12:00 Albuterol (Ventolin Hfa) 2 puff Q6 PRN INH SHORTNESS OF BREATH; Start 11/21/18 at 18:00 Aspirin (Aspirin) 81 mg DAILY PO ; Start 11/22/18 at 09:00 Ferrous Sulfate (Ferrous Sulfate (Ec)) 325 mg BID PO ; Start 11/21/18 at 21:00 Gabapentin (Neurontin) 300 mg TID PO ; Start 11/21/18 at 21:00 Insulin Aspart (Novolog Insulin Pen) 10 unit WITH MEALS SC Last administered on 11/21/18at 17:25; Admin Dose 10 UNIT; Start 11/21/18 at 17:35 Isosorbide Mononitrate (Imdur) 30 mg DAILY PO ; Start 11/22/18 at 09:00 Thiamine HCl (Vitamin B1) 100 mg DAILY PO ; Start 11/22/18 at 09:00 Fluticasone/ Vilanterol (Breo Ellipta 200-25 Mcg Inh) 1 inh DAILY INH ; Start at 09:00 Insulin Glargine (Lantus) 10 units DAILY@2000 SC ; Start 11/21/18 at 20:00 Nifedipine (Procardia Xl) 30 mg DAILY PO ; Start 11/22/18 at 09:00; Status UNV Doxazosin Mesylate (Cardura) 4 mg HS PO ; Start 11/21/18 at 21:00; Status UNV Metoprolol Succinate (Toprol Xl) 50 mg BID PO ; Start 11/21/18 at 21:00; Status UNV Linagliptin (Tradjenta) 5 mg DAILY PO ; Start 11/21/18 at 18:00; Status UNV Hydralazine HCl (Apresoline) 50 mg Q8 PO ; Start 11/21/18 at 22:00; Status UNV Montelukast Sodium (Singulair) 10 mg HS PO ; Start 11/21/18 at 21:00; Status UNV Diagnostic Test (Pha) (Accu-Chek) 1 ea AC MEALS XX ; Start 11/22/18 at 07:30; Status UNV Diagnostic Test (Pha) (Accu-Chek) 1 ea 2 HOURS AFTER MEALS XX ; Start 11/21/18 at 20:05; Status UNV RENÉE BRANTLEY MD Nov 21, 2018 18:10
[2018-11-21] MEDS: LINAGLIPTIN 5 MG TABLET PO SCH (18:47)
[2018-11-21 19:53] VITALS: BP 156/70; PULSE 80; RESP 20
[2018-11-21] MEDS ORDERED: INSULIN GLARGINE [LANTus] (100 UNITS/ML) SYG SC SCH ×3 (20:00→21:00)
[2018-11-21] MEDS: ACCU-CHEK XX SCH (20:05)
[2018-11-21] MEDS: GABAPENTIN 300 MG CAP PO SCH (20:42)
[2018-11-21] MEDS: MONTELUKAST 10 MG TAB PO SCH (20:42)
[2018-11-21] MEDS: DOXAZOSIN 4 MG TAB PO SCH (20:42)
[2018-11-21] MEDS: FERROUS SULFATE (EC) 325 MG TAB PO SCH (20:42)
[2018-11-21] MEDS: METOPROLOL (XL) 50 MG TAB PO SCH (20:43)
[2018-11-21] MEDS: HEPARIN 5,000 UNIT/1 ML VIAL SC SCH (20:43)
[2018-11-21] MEDS: FAMOTIDINE 20 MG INJ IV SCH (20:43)
[2018-11-21] MEDS: TIOTROPIUM 18 MCG CAPSULE INHA DEV INH SCH (20:47)
[2018-11-21] MEDS ORDERED: TAMSULOSIN (SR) 0.4 MG CAP PO SCH (21:00)
[2018-11-21] MEDS: PHENAZOPYRIDINE 100 MG TAB PO SCH (22:53)
[2018-11-22] MEDS: SOD CHLORIDE 0.9% 1,000 ML IV SCH ×3 (01:38→14:02)
[2018-11-22 02:10] VITALS: BP 105/53; PULSE 73; RESP 20
[2018-11-22] MEDS: ACCU-CHEK XX SCH ×6 (07:30→20:05)
[2018-11-22] MEDS: INSULIN ASPART [NOVOLOG] 3 ML PEN SC SCH ×6 (08:08→21:12)
[2018-11-22] MEDS: HEPARIN 5,000 UNIT/1 ML VIAL SC SCH ×2 (08:10→21:27)
[2018-11-22] MEDS: PHENAZOPYRIDINE 100 MG TAB PO SCH ×2 (08:11→21:03)
[2018-11-22] MEDS: FERROUS SULFATE (EC) 325 MG TAB PO SCH ×2 (08:11→21:01)
[2018-11-22] MEDS: GABAPENTIN 300 MG CAP PO SCH ×3 (08:11→21:01)
[2018-11-22] MEDS: LINAGLIPTIN 5 MG TABLET PO SCH (08:11)
[2018-11-22] MEDS: FAMOTIDINE 20 MG INJ IV SCH ×2 (08:11→21:01)
[2018-11-22] MEDS: METOPROLOL (XL) 50 MG TAB PO SCH ×2 (08:11→21:00)
[2018-11-22] MEDS: ISOSORBIDE MONONITRATE(SR)30 MG TAB PO SCH (08:14)
[2018-11-22] MEDS: ASPIRIN 81 MG TAB PO SCH (08:14)
[2018-11-22] MEDS: TIOTROPIUM 18 MCG CAPSULE INHA DEV INH SCH (08:15)
[2018-11-22] MEDS: THIAMINE 100 MG TAB PO SCH (08:15)
[2018-11-22] MEDS: FLUTICASONE/VILANTEROL 200-25 INH DEVICE INH SCH (08:15)
[2018-11-22 08:27] VITALS: BP 123/58; PULSE 70; RESP 20
[2018-11-22] MEDS ORDERED: NIFEdipine (XL) 90 MG TAB PO SCH (09:00)
[2018-11-22] MEDS ORDERED: NIFEdipine (XL) 30 MG TAB PO SCH (09:00)
[2018-11-22] MEDS: POLYETHYLENE GLYCOL 17 GM PACKET PO SCH (10:46)
[2018-11-22 14:18] VITALS: BP 128/60; PULSE 74; RESP 20
--- NOTE | 2018-11-22 14:33 | PN ---
Date/Time of Note Date/Time of Note DATE: 11/22/18 TIME: 14:24 Assessment/Plan VTE Prophylaxis Risk score (from Nsg)>0 risk: 4 SCD applied (from Ns): Yes Pharmacological prophylaxis: heparin Lines/Catheters IV Catheter Type (from Nrsg): Peripheral IV Urinary Cath still in place: Yes Reason Cath still needed: other (indicate) (monitor I&O O DC honestly is a tear one in better went to light and is a 1 SC with is carrying and) Assessment/Plan Hospital Course assessment and plan 1. Diabetes. 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 Hypertension. - continue antihypertensives 3. Acute renal insufficiency. - continue IVF - f/u retail product demo specialist recommendations. - correct electrolytes as needed 4. BPH. - Continue on Flomax. 5. Diabetic neuropathy. - On Neurontin. 6. History of CHF. - Continue beta-james and ASA. - O2 PRN 7. Obesity. -Weight reduction was advised. Dispo/Plan: monitor for improvement of renal function. continue insulin regimen per helpdesk analyst. Await further clinical improvement Discussed POC with Dr. Barlow Result Diagram: 11/22/18 0704 11/22/18 0704 Results 24hrs Laboratory Tests Test 11/21/18 17:22 11/21/18 18:46 11/21/18 20:39 11/22/18 01:58 Bedside Glucose 307 H 355 H 310 H 216 Test 11/22/18 07:04 11/22/18 08:01 11/22/18 09:50 11/22/18 12:10 White Blood Count 8.7 Red Blood Count 4.45 L Hemoglobin 11.8 L Hematocrit 38.6 L Mean Corpuscular 86.7 Volume Mean Corpuscular 26.5 L Hemoglobin Mean Corpuscular 30.6 L Hemoglobin Concent Red Cell 13.3 Distribution Width Platelet Count 173 Mean Platelet Volume 10.7 H Immature 0.500 H Granulocytes % Neutrophils % 74.7 Lymphocytes % 14.4 L Monocytes % 8.7 Eosinophils % 1.5 Basophils % 0.2 Nucleated Red Blood 0.0 Cells % Immature 0.040 H Granulocytes # Neutrophils # 6.5 Lymphocytes # 1.3 Monocytes # 0.8 Eosinophils # 0.1 Basophils # 0.0 Nucleated Red Blood 0.0 Cells # Sodium Level 138 Potassium Level 4.6 Chloride Level 101 Carbon Dioxide Level 28 Anion Gap 9 Blood Urea Nitrogen 70 H Creatinine 4.11 H Est Glomerular 15 L Filtrat Rate mL/min Glucose Level 259 H Hemoglobin A1c 13.3 H Calcium Level 8.5 Phosphorus Level 5.1 H Magnesium Level 2.0 Total Bilirubin 0.7 Direct Bilirubin 0.00 Indirect Bilirubin 0.7 Aspartate Amino 18 Transf (AST/SGOT) Alanine 20 Aminotransferase (AL T/SGPT) Alkaline Phosphatase 67 Total Protein 7.0 Albumin 3.5 Globulin 3.50 H Albumin/Globulin 1.00 Ratio Triglycerides Level 150 H Cholesterol Level 117 LDL Cholesterol, 65 Calculated HDL Cholesterol 22 L Cholesterol/HDL 5.3 Ratio Vitamin D < 12.8 L 1,25-Dihydroxy Thyroid Stimulating 1.540 Hormone (TSH) Free Thyroxine Index Pending Thyroxine (T4) Pending Triiodothyronine 44.2 H (T3) Uptake Bedside Glucose 248 H 270 H 273 H Test 11/22/18 13:57 Bedside Glucose 191 Subjective 24 Hr Interval Summary Free Text/Dictation denies any headache. appears comfortable during visit Exam/Review of Systems Exam Vitals Vital Signs Date Temp Pulse Resp B/P (MAP) Pulse Ox O2 O2 Flow FiO2 Time Delivery Rate 11/22/18 98.0 74 20 128/60 95 Room Air 14:18 (82) 11/22/18 2.0 08:27 Intake and Output 11/21/18 11/21/18 11/22/18 1515:00 23:00 07:00 IntakeIntake Total 240 ml 760 ml 1080 ml OutputOutput Total 1300 ml 950 ml BalanceBalance 240 ml -540 ml 130 ml Exam Constitutional: alert, oriented Psych: nl mood/affect Head: normocephalic Respiratory: clear to auscultation Cardiovascular: other (Regular rate) Neurological: nl mental status, nl speech Skin: nl turgor Results Results 24hrs Laboratory Tests Test 11/21/18 17:22 11/21/18 18:46 11/21/18 20:39 11/22/18 01:58 Bedside Glucose 307 H 355 H 310 H 216 Test 11/22/18 07:04 11/22/18 08:01 11/22/18 09:50 11/22/18 12:10 White Blood Count 8.7 Red Blood Count 4.45 L Hemoglobin 11.8 L Hematocrit 38.6 L Mean Corpuscular 86.7 Volume Mean Corpuscular 26.5 L Hemoglobin Mean Corpuscular 30.6 L Hemoglobin Concent Red Cell 13.3 Distribution Width Platelet Count 173 Mean Platelet Volume 10.7 H Immature 0.500 H Granulocytes % Neutrophils % 74.7 Lymphocytes % 14.4 L Monocytes % 8.7 Eosinophils % 1.5 Basophils % 0.2 Nucleated Red Blood 0.0 Cells % Immature 0.040 H Granulocytes # Neutrophils # 6.5 Lymphocytes # 1.3 Monocytes # 0.8 Eosinophils # 0.1 Basophils # 0.0 Nucleated Red Blood 0.0 Cells # Sodium Level 138 Potassium Level 4.6 Chloride Level 101 Carbon Dioxide Level 28 Anion Gap 9 Blood Urea Nitrogen 70 H Creatinine 4.11 H Est Glomerular 15 L Filtrat Rate mL/min Glucose Level 259 H Hemoglobin A1c 13.3 H Calcium Level 8.5 Phosphorus Level 5.1 H Magnesium Level 2.0 Total Bilirubin 0.7 Direct Bilirubin 0.00 Indirect Bilirubin 0.7 Aspartate Amino 18 Transf (AST/SGOT) Alanine 20 Aminotransferase (AL T/SGPT) Alkaline Phosphatase 67 Total Protein 7.0 Albumin 3.5 Globulin 3.50 H Albumin/Globulin 1.00 Ratio Triglycerides Level 150 H Cholesterol Level 117 LDL Cholesterol, 65 Calculated HDL Cholesterol 22 L Cholesterol/HDL 5.3 Ratio Vitamin D < 12.8 L 1,25-Dihydroxy Thyroid Stimulating 1.540 Hormone (TSH) Free Thyroxine Index Pending Thyroxine (T4) Pending Triiodothyronine 44.2 H (T3) Uptake Bedside Glucose 248 H 270 H 273 H Test 11/22/18 13:57 Bedside Glucose 191 Medications Medication Current Medications Hydralazine HCl (Apresoline) 10 mg Q4H PRN IV ELEVATED BP Last administered on 11/21/18at 11:16; Admin Dose 10 MG; Start 11/21/18 at 11:00 Sodium Chloride 1,000 ml @ 80 mls/hr [id number] IV Last administered on 11/22/18at 14:02; Admin Dose 80 MLS/HR; Start 11/21/18 at 11:16 IV Flush (NS 3 ml) 3 ml PER PROTOCOL IV ; Start 11/21/18 at 11:30 Ondansetron HCl (Zofran Inj) 4 mg Q6H PRN IV NAUSEA/VOMITING; Start 11/21/18 at 11:30 Acetaminophen (Tylenol Tab) 650 mg Q6H PRN PO .PAIN 1-3 OR TEMP; Start 11/21/18 at 11:30 Acetaminophen/ Hydrocodone Bitart ([place] (5/325)) 1 tab Q6H PRN PO .MOD PAIN 4- 6; Start 11/21/18 at 11:30 Morphine Sulfate (morphine) 2 mg Q4H PRN IV .SEVERE PAIN 7-10 Last administered on 11/21/18at 21:09; Admin Dose 2 MG; Start 11/21/18 at 11:30 Famotidine (Pepcid Iv) 20 mg Q12 IV Last administered on 11/22/18at 08:11; Admin Dose 20 MG; Start 11/21/18 at 21:00 Heparin Sodium (Porcine) (Heparin (5000 Units/1ml)) 5,000 unit Q12 SC Last administered on 11/22/18at 08:10; Admin Dose 5,000 UNIT; Start 11/21/18 at 21:00 Insulin Aspart (Novolog Insulin Pen) NOVOLOG *MILD* ALGORITHM WITH MEALS BEDTIME SC Last administered on 11/22/18at 12:13; Admin Dose 4 UNIT; Start 11/21/18 at 12:00 Miscellaneous Information 1 ea NOTE XX ; Start 11/21/18 at 12:00 Glucose (Glutose) 15 gm Q15M PRN PO DECREASED GLUCOSE; Start 11/21/18 at 12:00 Glucose (Glutose) 22.5 gm Q15M PRN PO DECREASED GLUCOSE; Start 11/21/18 at 12:00 Dextrose (D50w Syringe) 25 ml Q15M PRN IV DECREASED GLUCOSE; Start 11/21/18 at 12:00 Dextrose (D50w Syringe) 50 ml Q15M PRN IV DECREASED GLUCOSE; Start 11/21/18 at 12:00 Glucagon (Glucagen) 1 mg Q15M PRN IM DECREASED GLUCOSE; Start 11/21/18 at 12:00 Glucose (Glutose) 15 gm Q15M PRN BUCCAL DECREASED GLUCOSE; Start 11/21/18 at 12:00 Albuterol (Ventolin Hfa) 2 puff Q6 PRN INH SHORTNESS OF BREATH; Start 11/21/18 at 18:00 Aspirin (Aspirin) 81 mg DAILY PO Last administered on 11/22/18at 08:14; Admin Dose 81 MG; Start 11/22/18 at 09:00 Ferrous Sulfate (Ferrous Sulfate (Ec)) 325 mg BID PO Last administered on 11/22/18 08:11; Admin Dose 325 MG; Start 11/21/18 at 21:00 Gabapentin (Neurontin) 300 mg TID PO Last administered on 11/22/18 14:01; Admin Dose 300 MG; Start 11/21/18 at 21:00 Insulin Aspart (Novolog Insulin Pen) 10 unit WITH MEALS SC Last administered on 11/22/18 12:12; Admin Dose 10 UNIT; Start 11/21/18 at 17:35 Isosorbide Mononitrate (Imdur) 30 mg DAILY PO Last administered on 11/22/18 08:14; Admin Dose 30 MG; Start 11/22/18 at 09:00 Thiamine HCl (Vitamin B1) 100 mg DAILY PO Last administered on 11/22/18 08:15; Admin Dose 100 MG; Start 11/22/18 at 09:00 Fluticasone/ Vilanterol (Breo Ellipta 200-25 Mcg Inh) 1 inh DAILY INH Last administered on 11/22/18 08:15; Admin Dose 1 INH; Start 11/22/18 at 09:00 Insulin Glargine (Lantus) 10 units DAILY@2000 SC Last administered on 11/21/18 20:46; Admin Dose 10 UNITS; Start 11/21/18 at 20:00 Nifedipine (Procardia Xl) 30 mg DAILY PO Last administered on 11/22/18 08:14; Admin Dose 30 MG; Start 11/22/18 at 09:00 Doxazosin Mesylate (Cardura) 4 mg HS PO Last administered on 11/21/18 20:42; Admin Dose 4 MG; Start 11/21/18 at 21:00 Metoprolol Succinate (Toprol Xl) 50 mg BID PO Last administered on 11/22/18 08:11; Admin Dose 50 MG; Start 11/21/18 at 21:00 Linagliptin (Tradjenta) 5 mg DAILY PO Last administered on 11/22/18 08:11; Admin Dose 5 MG; Start 11/21/18 at 18:00 Hydralazine HCl (Apresoline) 50 mg Q8 PO Last administered on 11/22/18 14:01; Admin Dose 50 MG; Start 11/21/18 at 22:00 Montelukast Sodium (Singulair) 10 mg HS PO Last administered on 11/21/18at 20:42; Admin Dose 10 MG; Start 11/21/18 at 21:00 Diagnostic Test (Pha) (Accu-Chek) 1 ea AC MEALS XX ; Start 11/22/18 at 07:30 Diagnostic Test (Pha) (Accu-Chek) 1 ea 2 HOURS AFTER MEALS XX ; Start 11/21/18 at 20:05 Tiotropium [place] (Spiriva) 1 inh DAILY INH Last administered on 11/22/18at 08:15; Admin Dose 1 INH; Start 11/21/18 at 19:30 Phenazopyridine HCl (Pyridium) 100 mg BID PO Last administered on 11/22/18at 08:11; Admin Dose 100 MG; Start 11/21/18 at 21:30 Polyethylene Glycol (Miralax) 17 gm DAILY PO Last administered on 11/22/18at 10:46; Admin Dose 17 GM; Start 11/22/18 at 10:30 BRIANDA TYLER NP Nov 22, 2018 14:33
--- NOTE | 2018-11-22 17:00 | CONS ---
Assessment/Plan Assessment/Plan Assessment/Plan (Daily) 1. acute kidney injury on CKD IV 2. 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 h/o CHF 6. H/o DM II Plan: BUN/Cr 70/4.11, HbA1c 13.3, BP runs on low side around systolic 100s- Nifedipine Xl stopped today , will stop hydralazine today, continue Cardura 4 mg pO QHS, Metoprolol 50mg BID, US renal To assess ffor CKD ECHO to assess for EF and Wall motion decrease IVF NS rate to 50 cc/hr Uric acid in AM labs will follow up Consultation Date/Type/Reason Admit Date/Time Nov 21, 2018 at 09:57 Initial Consult Date 11/21/18 Type of Consult NEPHROLOGY Requesting Provider: BRIANDA TYLER NP Date/Time of Note DATE: 11/22/18 TIME: 17:00 24 HR Interval Summary Free Text/Dictation BUN/Cr 70/4.11, HbA1c 13.3, BP runs on low side around systolic 100s Exam/Review of Systems Exam Vitals Vital Signs Date Temp Pulse Resp B/P (MAP) Pulse Ox O2 O2 Flow FiO2 Time Delivery Rate 11/22/18 98.0 74 20 128/60 95 Room Air 14:18 (82) 11/22/18 2.0 08:27 Intake and Output 11/21/18 11/21/18 11/22/18 1515:00 23:00 07:00 IntakeIntake Total 240 ml 760 ml 1080 ml OutputOutput Total 1300 ml 950 ml BalanceBalance 240 ml -540 ml 130 ml Exam Constitutional: alert Respiratory: clear to auscultation, no crackles, no wheezing Cardiovascular: regular rate and rhythm, nl pulses Gastrointestinal: soft, non-tender Musculoskeletal: nl extremities to inspection Extremities: normal pulses Neurological: 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 II-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 intact, nl mental status, nl speech, nl strength Results Result Diagram: 11/22/18 0704 11/22/18 0704 Results 24hrs Laboratory Tests Test 11/21/18 17:22 11/21/18 18:46 11/21/18 20:39 11/22/18 01:58 Bedside Glucose 307 H 355 H 310 H 216 Test 11/22/18 07:04 11/22/18 08:01 11/22/18 09:50 11/22/18 12:10 White Blood Count 8.7 Red Blood Count 4.45 L Hemoglobin 11.8 L Hematocrit 38.6 L Mean Corpuscular 86.7 Volume Mean Corpuscular 26.5 L Hemoglobin Mean Corpuscular 30.6 L Hemoglobin Concent Red Cell 13.3 Distribution Width Platelet Count 173 Mean Platelet Volume 10.7 H Immature 0.500 H Granulocytes % Neutrophils % 74.7 Lymphocytes % 14.4 L Monocytes % 8.7 Eosinophils % 1.5 Basophils % 0.2 Nucleated Red Blood 0.0 Cells % Immature 0.040 H Granulocytes # Neutrophils # 6.5 Lymphocytes # 1.3 Monocytes # 0.8 Eosinophils # 0.1 Basophils # 0.0 Nucleated Red Blood 0.0 Cells # Sodium Level 138 Potassium Level 4.6 Chloride Level 101 Carbon Dioxide Level 28 Anion Gap 9 Blood Urea Nitrogen 70 H Creatinine 4.11 H Est Glomerular 15 L Filtrat Rate mL/min Glucose Level 259 H Hemoglobin A1c 13.3 H Calcium Level 8.5 Phosphorus Level 5.1 H Magnesium Level 2.0 Total Bilirubin 0.7 Direct Bilirubin 0.00 Indirect Bilirubin 0.7 Aspartate Amino 18 Transf (AST/SGOT) Alanine 20 Aminotransferase (AL T/SGPT) Alkaline Phosphatase 67 Total Protein 7.0 Albumin 3.5 Globulin 3.50 H Albumin/Globulin 1.00 Ratio Triglycerides Level 150 H Cholesterol Level 117 LDL Cholesterol, 65 Calculated HDL Cholesterol 22 L Cholesterol/HDL 5.3 Ratio Vitamin D < 12.8 L 1,25-Dihydroxy Thyroid Stimulating 1.540 Hormone (TSH) Free Thyroxine Index Pending Thyroxine (T4) Pending Triiodothyronine 44.2 H (T3) Uptake Bedside Glucose 248 H 270 H 273 H Test 11/22/18 13:57 Bedside Glucose 191 Medications Medication Current Medications Hydralazine HCl (Apresoline) 10 mg Q4H PRN IV ELEVATED BP Last administered on 11/21/18at 11:16; Admin Dose 10 MG; Start 11/21/18 at 11:00 Sodium Chloride 1,000 ml @ 80 mls/hr [id number] IV Last administered on 11/22/18at 14:02; Admin Dose 80 MLS/HR; Start 11/21/18 at 11:16 IV Flush (NS 3 ml) 3 ml PER PROTOCOL IV ; Start 11/21/18 at 11:30 Ondansetron HCl (Zofran Inj) 4 mg Q6H PRN IV NAUSEA/VOMITING; Start 11/21/18 at 11:30 Acetaminophen (Tylenol Tab) 650 mg Q6H PRN PO .PAIN 1-3 OR TEMP; Start 11/21/18 at 11:30 Acetaminophen/ Hydrocodone Bitart ([place] (5/325)) 1 tab Q6H PRN PO .MOD PAIN 4- 6; Start 11/21/18 at 11:30 Morphine Sulfate (morphine) 2 mg Q4H PRN IV .SEVERE PAIN 7-10 Last administered on 11/21/18at 21:09; Admin Dose 2 MG; Start 11/21/18 at 11:30 Famotidine (Pepcid Iv) 20 mg Q12 IV Last administered on 11/22/18at 08:11; Admin Dose 20 MG; Start 11/21/18 at 21:00 Heparin Sodium (Porcine) (Heparin (5000 Units/1ml)) 5,000 unit Q12 SC Last administered on 11/22/18at 08:10; Admin Dose 5,000 UNIT; Start 11/21/18 at 21:00 Insulin Aspart (Novolog Insulin Pen) NOVOLOG *MILD* ALGORITHM WITH MEALS BEDTIME SC Last administered on 11/22/18at 12:13; Admin Dose 4 UNIT; Start 11/21/18 at 12:00 Miscellaneous Information 1 ea NOTE XX ; Start 11/21/18 at 12:00 Glucose (Glutose) 15 gm Q15M PRN PO DECREASED GLUCOSE; Start 11/21/18 at 12:00 Glucose (Glutose) 22.5 gm Q15M PRN PO DECREASED GLUCOSE; Start 11/21/18 at 12:00 Dextrose (D50w Syringe) 25 ml Q15M PRN IV DECREASED GLUCOSE; Start 11/21/18 at 12:00 Dextrose (D50w Syringe) 50 ml Q15M PRN IV DECREASED GLUCOSE; Start 11/21/18 at 12:00 Glucagon (Glucagen) 1 mg Q15M PRN IM DECREASED GLUCOSE; Start 11/21/18 at 12:00 Glucose (Glutose) 15 gm Q15M PRN BUCCAL DECREASED GLUCOSE; Start 11/21/18 at 12:00 Albuterol (Ventolin Hfa) 2 puff Q6 PRN INH SHORTNESS OF BREATH; Start 11/21/18 at 18:00 Aspirin (Aspirin) 81 mg DAILY PO Last administered on 11/22/18 08:14; Admin Dose 81 MG; Start 11/22/18 at 09:00 Ferrous Sulfate (Ferrous Sulfate (Ec)) 325 mg BID PO Last administered on 11/22/18 08:11; Admin Dose 325 MG; Start 11/21/18 at 21:00 Gabapentin (Neurontin) 300 mg TID PO Last administered on 11/22/18 14:01; Admin Dose 300 MG; Start 11/21/18 at 21:00 Insulin Aspart (Novolog Insulin Pen) 10 unit WITH MEALS SC Last administered on 11/22/18 12:12; Admin Dose 10 UNIT; Start 11/21/18 at 17:35 Isosorbide Mononitrate (Imdur) 30 mg DAILY PO Last administered on 11/22/18 08:14; Admin Dose 30 MG; Start 11/22/18 at 09:00 Thiamine HCl (Vitamin B1) 100 mg DAILY PO Last administered on 11/22/18 08:15; Admin Dose 100 MG; Start 11/22/18 at 09:00 Fluticasone/ Vilanterol (Breo Ellipta 200-25 Mcg Inh) 1 inh DAILY INH Last administered on 11/22/18 08:15; Admin Dose 1 INH; Start 11/22/18 at 09:00 Insulin Glargine (Lantus) 10 units DAILY@2000 SC Last administered on 11/21/18 20:46; Admin Dose 10 UNITS; Start 11/21/18 at 20:00 Nifedipine (Procardia Xl) 30 mg DAILY PO Last administered on 11/22/18 08:14; Admin Dose 30 MG; Start 11/22/18 at 09:00 Doxazosin Mesylate (Cardura) 4 mg HS PO Last administered on 11/21/18 20:42; Admin Dose 4 MG; Start 11/21/18 at 21:00 Metoprolol Succinate (Toprol Xl) 50 mg BID PO Last administered on 11/22/18 08:11; Admin Dose 50 MG; Start 11/21/18 at 21:00 Linagliptin (Tradjenta) 5 mg DAILY PO Last administered on 11/22/18 08:11; Admin Dose 5 MG; Start 11/21/18 at 18:00 Hydralazine HCl (Apresoline) 50 mg Q8 PO Last administered on 11/22/18at 14:01; Admin Dose 50 MG; Start 11/21/18 at 22:00 Montelukast Sodium (Singulair) 10 mg HS PO Last administered on 11/21/18at 20:42; Admin Dose 10 MG; Start 11/21/18 at 21:00 Diagnostic Test (Pha) (Accu-Chek) 1 ea AC MEALS XX ; Start 11/22/18 at 07:30 Diagnostic Test (Pha) (Accu-Chek) 1 ea 2 HOURS AFTER MEALS XX ; Start 11/21/18 at 20:05 Tiotropium [place] (Spiriva) 1 inh DAILY INH Last administered on 11/22/18at 08:15; Admin Dose 1 INH; Start 11/21/18 at 19:30 Phenazopyridine HCl (Pyridium) 100 mg BID PO Last administered on 11/22/18at 08:11; Admin Dose 100 MG; Start 11/21/18 at 21:30 Polyethylene Glycol (Miralax) 17 gm DAILY PO Last administered on 11/22/18at 10:46; Admin Dose 17 GM; Start 11/22/18 at 10:30 BON GUERRERO MD Nov 22, 2018 17:00
--- NOTE | 2018-11-22 17:22 | CONS ---
Assessment/Plan Assessment/Plan Problems: (1) Diabetes mellitus type 2 in obese Status: Chronic Comment: Blood sugar control is better. However to be reasonable about this he will not be taking pre-meal shots at home because he will not do it. As such I am to try and cover the regimen given reasonable sugar control without pre-meal insulins. (2) Acute kidney injury Status: Acute Comment: As per nephrology. Presently stable. Watch for fluid shifts (3) Chronic kidney disease, stage 3 (moderate) Status: Chronic Comment: Noted and as per nephrology (4) Prostatic hypertrophy Status: Chronic Comment: Presently he is on alpha blockade therapy. Please note that he has adequate blood sugar control but presently he also has a Alvarez catheter in place (5) Essential hypertension Status: Chronic Comment: Adequate control. (6) Left ventricular hypertrophy Status: Chronic Comment: Blood pressure and pulse control (7) Diastolic dysfunction Status: Chronic Comment: Blood pressure and pulse control (8) COPD (chronic obstructive pulmonary disease) Status: Chronic Comment: Markedly improved with adjustment of the regimen, and the usage of a cardioselective beta-james Qualifiers: COPD type: emphysema Emphysema type: panlobular Qualified Codes: J43.1 - Panlobular emphysema (9) Vitamin D deficiency Status: Chronic Comment: Repeat labs pending Consultation Date/Type/Reason Admit Date/Time Nov 21, 2018 at 09:57 Initial Consult Date 11/21/18 Type of Consult Endocrinology Reason for Consultation Diabetes mellitus type 2 with inadequate glycemic control; acute knee injury on chronic kidney disease stage III; hypertension; diastolic dysfunction; Requesting Provider: BRIANDA TYLER NP Date/Time of Note DATE: 11/22/18 TIME: 17:19 24 HR Interval Summary Free Text/Dictation Spouse is at the bedside today. She reports that he is not graded taking his insulin at home and has never been taken more than 1 shot a day although he said he was taking 3. He does admit that he would prefer not to be taking more than 1 shot a day Constitutional: no complaints Detailed Summary Respiratory: no complaints Cardiovascular: no complaints Exam/Review of Systems Exam Vitals Vital Signs Date Temp Pulse Resp B/P (MAP) Pulse Ox O2 O2 Flow FiO2 Time Delivery Rate 11/22/18 98.0 74 20 128/60 95 Room Air 14:18 (82) 11/22/18 2.0 08:27 Intake and Output 11/21/18 11/21/18 11/22/18 1515:00 23:00 07:00 IntakeIntake Total 240 ml 760 ml 1080 ml OutputOutput Total 1300 ml 950 ml BalanceBalance 240 ml -540 ml 130 ml Constitutional: alert, oriented Respiratory: clear to auscultation, normal air movement Cardiovascular: regular rate and rhythm, nl pulses Results Result Diagram: 11/22/18 0704 11/22/18 0704 Results 24hrs Laboratory Tests Test 11/21/18 17:22 11/21/18 18:46 11/21/18 20:39 11/22/18 01:58 Bedside Glucose 307 H 355 H 310 H 216 Test 11/22/18 07:04 11/22/18 08:01 11/22/18 09:50 11/22/18 12:10 White Blood Count 8.7 Red Blood Count 4.45 L Hemoglobin 11.8 L Hematocrit 38.6 L Mean Corpuscular 86.7 Volume Mean Corpuscular 26.5 L Hemoglobin Mean Corpuscular 30.6 L Hemoglobin Concent Red Cell 13.3 Distribution Width Platelet Count 173 Mean Platelet Volume 10.7 H Immature 0.500 H Granulocytes % Neutrophils % 74.7 Lymphocytes % 14.4 L Monocytes % 8.7 Eosinophils % 1.5 Basophils % 0.2 Nucleated Red Blood 0.0 Cells % Immature 0.040 H Granulocytes # Neutrophils # 6.5 Lymphocytes # 1.3 Monocytes # 0.8 Eosinophils # 0.1 Basophils # 0.0 Nucleated Red Blood 0.0 Cells # Sodium Level 138 Potassium Level 4.6 Chloride Level 101 Carbon Dioxide Level 28 Anion Gap 9 Blood Urea Nitrogen 70 H Creatinine 4.11 H Est Glomerular 15 L Filtrat Rate mL/min Glucose Level 259 H Hemoglobin A1c 13.3 H Calcium Level 8.5 Phosphorus Level 5.1 H Magnesium Level 2.0 Total Bilirubin 0.7 Direct Bilirubin 0.00 Indirect Bilirubin 0.7 Aspartate Amino 18 Transf (AST/SGOT) Alanine 20 Aminotransferase (AL T/SGPT) Alkaline Phosphatase 67 Total Protein 7.0 Albumin 3.5 Globulin 3.50 H Albumin/Globulin 1.00 Ratio Triglycerides Level 150 H Cholesterol Level 117 LDL Cholesterol, 65 Calculated HDL Cholesterol 22 L Cholesterol/HDL 5.3 Ratio Vitamin D < 12.8 L 1,25-Dihydroxy Thyroid Stimulating 1.540 Hormone (TSH) Free Thyroxine Index Pending Thyroxine (T4) Pending Triiodothyronine 44.2 H (T3) Uptake Bedside Glucose 248 H 270 H 273 H Test 11/22/18 13:57 Bedside Glucose 191 Medications Medication Current Medications Hydralazine HCl (Apresoline) 10 mg Q4H PRN IV ELEVATED BP Last administered on 11/21/18 11:16; Admin Dose 10 MG; Start 11/21/18 at 11:00 Sodium Chloride 1,000 ml @ 80 mls/hr [id number] IV Last administered on 11/22/18 14:02; Admin Dose 80 MLS/HR; Start 11/21/18 at 11:16 IV Flush (NS 3 ml) 3 ml PER PROTOCOL IV ; Start 11/21/18 at 11:30 Ondansetron HCl (Zofran Inj) 4 mg Q6H PRN IV NAUSEA/VOMITING; Start 11/21/18 at 11:30 Acetaminophen (Tylenol Tab) 650 mg Q6H PRN PO .PAIN 1-3 OR TEMP; Start 11/21/18 at 11:30 Acetaminophen/ Hydrocodone Bitart ([place] (5/325)) 1 tab Q6H PRN PO .MOD PAIN 4- 6; Start 11/21/18 at 11:30 Morphine Sulfate (morphine) 2 mg Q4H PRN IV .SEVERE PAIN 7-10 Last administered on 11/21/18at 21:09; Admin Dose 2 MG; Start 11/21/18 at 11:30 Famotidine (Pepcid Iv) 20 mg Q12 IV Last administered on 11/22/18at 08:11; Admin Dose 20 MG; Start 11/21/18 at 21:00 Heparin Sodium (Porcine) (Heparin (5000 Units/1ml)) 5,000 unit Q12 SC Last administered on 11/22/18at 08:10; Admin Dose 5,000 UNIT; Start 11/21/18 at 21:00 Insulin Aspart (Novolog Insulin Pen) NOVOLOG *MILD* ALGORITHM WITH MEALS BEDTIME SC Last administered on 11/22/18at 12:13; Admin Dose 4 UNIT; Start 11/21/18 at 12:00 Miscellaneous Information 1 ea NOTE XX ; Start 11/21/18 at 12:00 Glucose (Glutose) 15 gm Q15M PRN PO DECREASED GLUCOSE; Start 11/21/18 at 12:00 Glucose (Glutose) 22.5 gm Q15M PRN PO DECREASED GLUCOSE; Start 11/21/18 at 12:00 Dextrose (D50w Syringe) 25 ml Q15M PRN IV DECREASED GLUCOSE; Start 11/21/18 at 12:00 Dextrose (D50w Syringe) 50 ml Q15M PRN IV DECREASED GLUCOSE; Start 11/21/18 at 12:00 Glucagon (Glucagen) 1 mg Q15M PRN IM DECREASED GLUCOSE; Start 11/21/18 at 12:00 Glucose (Glutose) 15 gm Q15M PRN BUCCAL DECREASED GLUCOSE; Start 11/21/18 at 12:00 Albuterol (Ventolin Hfa) 2 puff Q6 PRN INH SHORTNESS OF BREATH; Start 11/21/18 at 18:00 Aspirin (Aspirin) 81 mg DAILY PO Last administered on 11/22/18 08:14; Admin Dose 81 MG; Start 11/22/18 at 09:00 Ferrous Sulfate (Ferrous Sulfate (Ec)) 325 mg BID PO Last administered on 11/22/18 08:11; Admin Dose 325 MG; Start 11/21/18 at 21:00 Gabapentin (Neurontin) 300 mg TID PO Last administered on 11/22/18 14:01; Admin Dose 300 MG; Start 11/21/18 at 21:00 Insulin Aspart (Novolog Insulin Pen) 10 unit WITH MEALS SC Last administered on 11/22/18at 12:12; Admin Dose 10 UNIT; Start 11/21/18 at 17:35 Isosorbide Mononitrate (Imdur) 30 mg DAILY PO Last administered on 11/22/18 08:14; Admin Dose 30 MG; Start 11/22/18 at 09:00 Thiamine HCl (Vitamin B1) 100 mg DAILY PO Last administered on 11/22/18 08:15; Admin Dose 100 MG; Start 11/22/18 at 09:00 Fluticasone/ Vilanterol (Breo Ellipta 200-25 Mcg Inh) 1 inh DAILY INH Last administered on 11/22/18 08:15; Admin Dose 1 INH; Start 11/22/18 at 09:00 Insulin Glargine (Lantus) 10 units DAILY@2000 SC Last administered on 11/21/18at 20:46; Admin Dose 10 UNITS; Start 11/21/18 at 20:00 Nifedipine (Procardia Xl) 30 mg DAILY PO Last administered on 11/22/18 08:14; Admin Dose 30 MG; Start 11/22/18 at 09:00 Doxazosin Mesylate (Cardura) 4 mg HS PO Last administered on 11/21/18 20:42; Admin Dose 4 MG; Start 11/21/18 at 21:00 Metoprolol Succinate (Toprol Xl) 50 mg BID PO Last administered on 11/22/18 08:11; Admin Dose 50 MG; Start 11/21/18 at 21:00 Linagliptin (Tradjenta) 5 mg DAILY PO Last administered on 11/22/18 08:11; Admin Dose 5 MG; Start 11/21/18 at 18:00 Hydralazine HCl (Apresoline) 50 mg Q8 PO Last administered on 11/22/18 14:01; Admin Dose 50 MG; Start 11/21/18 at 22:00 Montelukast Sodium (Singulair) 10 mg HS PO Last administered on 11/21/18 20:42; Admin Dose 10 MG; Start 11/21/18 at 21:00 Diagnostic Test (Pha) (Accu-Chek) 1 ea AC MEALS XX ; Start 11/22/18 at 07:30 Diagnostic Test (Pha) (Accu-Chek) 1 ea 2 HOURS AFTER MEALS XX ; Start 11/21/18 at 20:05 Tiotropium [place] (Spiriva) 1 inh DAILY INH Last administered on 11/22/18 08:15; Admin Dose 1 INH; Start 11/21/18 at 19:30 Phenazopyridine HCl (Pyridium) 100 mg BID PO Last administered on 11/22/18 08:11; Admin Dose 100 MG; Start 11/21/18 at 21:30 Polyethylene Glycol (Miralax) 17 gm DAILY PO Last administered on 11/22/18 10:46; Admin Dose 17 GM; Start 11/22/18 at 10:30 RENÉE BRANTLEY MD Nov 22, 2018 17:22
[2018-11-22 20:00] VITALS: BP 102/57; PULSE 69; RESP 20
[2018-11-22] MEDS ORDERED: INSULIN GLARGINE [LANTus] (100 UNITS/ML) SYG SC SCH (20:00)
[2018-11-22] MEDS: DOXAZOSIN 4 MG TAB PO SCH (21:00)
[2018-11-22] MEDS: MONTELUKAST 10 MG TAB PO SCH (21:01)
[2018-11-22] MEDS: ACETAMINOPHEN 325 MG TAB PO PRN (21:28)
[2018-11-22] MEDS ORDERED: BISACODYL 10 MG SUPP PR ONE (23:30)
[2018-11-23 02:00] VITALS: BP 105/56; PULSE 77; RESP 21
[2018-11-23] MEDS: SOD CHLORIDE 0.9% 1,000 ML IV SCH (06:44)
[2018-11-23 08:00] VITALS: BP 168/77; PULSE 75; RESP 20
[2018-11-23] MEDS: ISOSORBIDE MONONITRATE(SR)30 MG TAB PO SCH (08:14)
[2018-11-23] MEDS: FERROUS SULFATE (EC) 325 MG TAB PO SCH ×2 (08:14→20:30)
[2018-11-23] MEDS: NATEGLINIDE 120 MG TAB PO SCH ×3 (08:14→17:05)
[2018-11-23] MEDS: ASPIRIN 81 MG TAB PO SCH (08:14)
[2018-11-23] MEDS: PHENAZOPYRIDINE 100 MG TAB PO SCH ×2 (08:15→20:30)
[2018-11-23] MEDS: FLUTICASONE/VILANTEROL 200-25 INH DEVICE INH SCH (08:15)
[2018-11-23] MEDS: ACCU-CHEK XX SCH ×6 (08:15→20:05)
[2018-11-23] MEDS: LINAGLIPTIN 5 MG TABLET PO SCH (08:15)
[2018-11-23] MEDS: POLYETHYLENE GLYCOL 17 GM PACKET PO SCH (08:15)
[2018-11-23] MEDS: METOPROLOL (XL) 50 MG TAB PO SCH ×2 (08:15→20:31)
[2018-11-23] MEDS: THIAMINE 100 MG TAB PO SCH (08:16)
[2018-11-23] MEDS: FAMOTIDINE 20 MG INJ IV SCH ×2 (08:16→20:30)
[2018-11-23] MEDS: GABAPENTIN 300 MG CAP PO SCH ×3 (08:16→20:31)
[2018-11-23] MEDS: HEPARIN 5,000 UNIT/1 ML VIAL SC SCH ×2 (08:16→20:34)
[2018-11-23] MEDS: INSULIN ASPART [NOVOLOG] 3 ML PEN SC SCH ×4 (08:17→20:31)
[2018-11-23] MEDS: TIOTROPIUM 18 MCG CAPSULE INHA DEV INH SCH (10:05)
[2018-11-23] MEDS: SOD FERRIC GLUC COMPLX 125 MG in SOD CHLORIDE 0.9% 100 ML IVPB SCH (12:07)
--- NOTE | 2018-11-23 12:26 | PN ---
Date/Time of Note Date/Time of Note DATE: 11/23/18 TIME: 12:23 Assessment/Plan VTE Prophylaxis Risk score (from Nsg)>0 risk: 4 SCD applied (from Nsg): Yes Pharmacological prophylaxis: heparin Lines/Catheters IV Catheter Type (from Nrsg): Peripheral IV Urinary Cath still in place: Yes Reason Cath still needed: other (indicate) (monitor I&O) Assessment/Plan Hospital Course assessment and plan 1. Diabetes. - A1c.: 13.3 - Gynaecological Oncologist following - f/u insulin regimen 2. Hypertension. - continue antihypertensives 3. Acute renal insufficiency. - IVF - f/u elevator tender recommendations. - correct electrolytes as needed 4. BPH. - Continue on Flomax. 5. Diabetic neuropathy. - On Neurontin. 6. History of CHF. - Continue beta-james and ASA. - O2 PRN 7. Obesity. -Weight reduction was advised. Dispo/Plan: monitor for improvement of renal function. still elevated glucose. insulin regimen per healthcare science specialist. PT germaine Discussed POC with Dr. Barlow Result Diagram: 11/22/18 0704 11/23/18 1050 Results 24hrs Laboratory Tests Test 11/22/18 13:57 11/22/18 17:21 11/22/18 20:58 11/23/18 02:02 Bedside Glucose 191 202 253 H 301 H Test 11/23/18 04:40 11/23/18 07:59 11/23/18 10:13 11/23/18 10:50 Uric Acid 9.2 H Creatine Kinase 73 Bedside Glucose 340 H 324 H Sodium Level 135 Potassium Level 4.8 Chloride Level 98 Carbon Dioxide Level 25 Anion Gap 12 Blood Urea Nitrogen 74 H Creatinine 4.22 H Est Glomerular 14 L Filtrat Rate mL/min Glucose Level 313 H Calcium Level 8.5 Test 11/23/18 11:52 Bedside Glucose 265 H Subjective 24 Hr Interval Summary Free Text/Dictation no reports of headache. comfortable at present Exam/Review of Systems Exam Vitals Vital Signs Date Temp Pulse Resp B/P (MAP) Pulse Ox O2 O2 Flow FiO2 Time Delivery Rate 11/23/18 Nasal 2.0 08:10 Cannula 11/23/18 98.6 75 20 168/77 96 08:00 (107) Intake and Output 11/22/18 11/22/18 11/23/18 1515:00 23:00 07:00 IntakeIntake Total 1520 ml 600 ml 1560 ml OutputOutput Total 500 ml 900 ml BalanceBalance 1520 ml 100 ml 660 ml Exam Constitutional: alert, oriented Psych: nl mood/affect Head: normocephalic Respiratory: clear to auscultation Cardiovascular: other (Regular rate) Neurological: nl mental status, nl speech Skin: nl turgor Results Results 24hrs Laboratory Tests Test 11/22/18 13:57 11/22/18 17:21 11/22/18 20:58 11/23/18 02:02 Bedside Glucose 191 202 253 H 301 H Test 11/23/18 04:40 11/23/18 07:59 11/23/18 10:13 11/23/18 10:50 Uric Acid 9.2 H Creatine Kinase 73 Bedside Glucose 340 H 324 H Sodium Level 135 Potassium Level 4.8 Chloride Level 98 Carbon Dioxide Level 25 Anion Gap 12 Blood Urea Nitrogen 74 H Creatinine 4.22 H Est Glomerular 14 L Filtrat Rate mL/min Glucose Level 313 H Calcium Level 8.5 Test 11/23/18 11:52 Bedside Glucose 265 H Medications Medication Current Medications Hydralazine HCl (Apresoline) 10 mg Q4H PRN IV ELEVATED BP Last administered on 11/21/18at 11:16; Admin Dose 10 MG; Start 11/21/18 at 11:00 Sodium Chloride 1,000 ml @ 50 mls/hr Q20H IV Last administered on 11/23/18at 06:44; Admin Dose 50 MLS/HR; Start 11/21/18 at 11:16 IV Flush (NS 3 ml) 3 ml PER PROTOCOL IV ; Start 11/21/18 at 11:30 Ondansetron HCl (Zofran Inj) 4 mg Q6H PRN IV NAUSEA/VOMITING; Start 11/21/18 at 11:30 Acetaminophen (Tylenol Tab) 650 mg Q6H PRN PO .PAIN 1-3 OR TEMP Last administered on 11/22/18at 21:28; Admin Dose 650 MG; Start 11/21/18 at 11:30 Acetaminophen/ Hydrocodone Bitart ([place] (5/325)) 1 tab Q6H PRN PO .MOD PAIN 4- 6 Last administered on 11/23/18at 10:09; Admin Dose 1 TAB; Start 11/21/18 at 11:30 Morphine Sulfate (morphine) 2 mg Q4H PRN IV .SEVERE PAIN 7-10 Last administered on 11/21/18 21:09; Admin Dose 2 MG; Start 11/21/18 at 11:30 Famotidine (Pepcid Iv) 20 mg Q12 IV Last administered on 11/23/18 08:16; Admin Dose 20 MG; Start 11/21/18 at 21:00 Heparin Sodium (Porcine) (Heparin (5000 Units/1ml)) 5,000 unit Q12 SC Last administered on 11/23/18 08:16; Admin Dose 5,000 UNIT; Start 11/21/18 at 21:00 Insulin Aspart (Novolog Insulin Pen) NOVOLOG *MILD* ALGORITHM WITH MEALS BEDTIME SC Last administered on 11/23/18 12:07; Admin Dose 4 UNIT; Start 11/21/18 at 12:00 Miscellaneous Information 1 ea NOTE XX ; Start 11/21/18 at 12:00 Glucose (Glutose) 15 gm Q15M PRN PO DECREASED GLUCOSE; Start 11/21/18 at 12:00 Glucose (Glutose) 22.5 gm Q15M PRN PO DECREASED GLUCOSE; Start 11/21/18 at 12:00 Dextrose (D50w Syringe) 25 ml Q15M PRN IV DECREASED GLUCOSE; Start 11/21/18 at 12:00 Dextrose (D50w Syringe) 50 ml Q15M PRN IV DECREASED GLUCOSE; Start 11/21/18 at 12:00 Glucagon (Glucagen) 1 mg Q15M PRN IM DECREASED GLUCOSE; Start 11/21/18 at 12:00 Glucose (Glutose) 15 gm Q15M PRN BUCCAL DECREASED GLUCOSE; Start 11/21/18 at 12:00 Albuterol (Ventolin Hfa) 2 puff Q6 PRN INH SHORTNESS OF BREATH; Start 11/21/18 at 18:00 Aspirin (Aspirin) 81 mg DAILY PO Last administered on 11/23/18at 08:14; Admin Dose 81 MG; Start 11/22/18 at 09:00 Ferrous Sulfate (Ferrous Sulfate (Ec)) 325 mg BID PO Last administered on 11/23/18at 08:14; Admin Dose 325 MG; Start 11/21/18 at 21:00 Gabapentin (Neurontin) 300 mg TID PO Last administered on 11/23/18at 12:07; Admin Dose 300 MG; Start 11/21/18 at 21:00 Isosorbide Mononitrate (Imdur) 30 mg DAILY PO Last administered on 11/23/18 08:14; Admin Dose 30 MG; Start 11/22/18 at 09:00 Thiamine HCl (Vitamin B1) 100 mg DAILY PO Last administered on 11/23/18 08:16; Admin Dose 100 MG; Start 11/22/18 at 09:00 Fluticasone/ Vilanterol (Breo Ellipta 200-25 Mcg Inh) 1 inh DAILY INH Last administered on 11/23/18 08:15; Admin Dose 1 INH; Start 11/22/18 at 09:00 Doxazosin Mesylate (Cardura) 4 mg HS PO Last administered on 11/21/18 20:42; Admin Dose 4 MG; Start 11/21/18 at 21:00 Metoprolol Succinate (Toprol Xl) 50 mg BID PO Last administered on 11/23/18 08:15; Admin Dose 50 MG; Start 11/21/18 at 21:00 Linagliptin (Tradjenta) 5 mg DAILY PO Last administered on 11/23/18 08:15; Admin Dose 5 MG; Start 11/21/18 at 18:00 Montelukast Sodium (Singulair) 10 mg HS PO Last administered on 11/22/18 21:01; Admin Dose 10 MG; Start 11/21/18 at 21:00 Diagnostic Test (Pha) (Accu-Chek) 1 ea AC MEALS XX Last administered on 11/23/18 11:53; Admin Dose 1 EA; Start 11/22/18 at 07:30 Diagnostic Test (Pha) (Accu-Chek) 1 ea 2 HOURS AFTER MEALS XX Last administered on 11/23/18 10:14; Admin Dose 1 EA; Start 11/21/18 at 20:05 Tiotropium [place] (Spiriva) 1 inh DAILY INH Last administered on 11/23/18 10:05; Admin Dose 1 INH; Start 11/21/18 at 19:30 Phenazopyridine HCl (Pyridium) 100 mg BID PO Last administered on 11/23/18 08:15; Admin Dose 100 MG; Start 11/21/18 at 21:30 Polyethylene Glycol (Miralax) 17 gm DAILY PO Last administered on 11/23/18at 08:15; Admin Dose 17 GM; Start 11/22/18 at 10:30 Insulin Glargine (Lantus) 14 units DAILY@2000 SC Last administered on 11/22/18at 21:11; Admin Dose 14 UNITS; Start 11/22/18 at 20:00 Nateglinide (Starlix) 120 mg AC MEALS PO Last administered on 11/23/18at 11:53; Admin Dose 120 MG; Start 11/23/18 at 07:30 Ferric Sodium Gluconate Complex 125 mg/Sodium Chloride 110 ml @ 110 mls/hr DAILY@1300 IVPB Last administered on 11/23/18at 12:07; Admin Dose 110 MLS/HR; Start 11/23/18 at 13:00; Stop 11/27/18 at 13:59 BRIANDA TYLER DATA WAREHOUSE ANALYST Nov 23, 2018 12:26
--- NOTE | 2018-11-23 13:27 | CONS ---
Assessment/Plan Assessment/Plan Assessment/Plan (Daily) 1. acute kidney injury on CKD IV 2. 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 h/o CHF 6. H/o DM II Plan: BUN/Cr 74/4.22 , HbA1c 13.3, BP runs on low side around systolic 100s-, continue Cardura 4 mg pO QHS, Metoprolol 50mg BID, Nifedipine XL and Hydralazine stopped yesterday Renal US showed The right kidney measures 13.5 cm. There is mild right hydronephrosis.The left kidney measures 15.5 cm., Bilateral Renal cysts ECHO showed EF 60%, normal LVSF, Unable to assess Diastolic function due to atrial fibrillation calcitriol 0.25 mcg pO Q am, Uric acid 9.4- start allopurinol 100mg pO BID will follow up Consultation Date/Type/Reason Admit Date/Time Nov 21, 2018 at 09:57 Initial Consult Date 11/21/18 Type of Consult NEPHROLOGY Requesting Provider: BRIANDA TYLER NP Date/Time of Note DATE: 11/23/18 TIME: 13:27 Exam/Review of Systems Exam Vitals Vital Signs Date Temp Pulse Resp B/P (MAP) Pulse Ox O2 O2 Flow FiO2 Time Delivery Rate 11/23/18 Nasal 2.0 08:10 Cannula 11/23/18 98.6 75 20 168/77 96 08:00 (107) Intake and Output 11/22/18 11/22/18 11/23/18 1515:00 23:00 07:00 IntakeIntake Total 1520 ml 600 ml 1560 ml OutputOutput Total 500 ml 900 ml BalanceBalance 1520 ml 100 ml 660 ml Exam Constitutional: alert Respiratory: clear to auscultation, no crackles, no wheezing Cardiovascular: regular rate and rhythm, nl pulses Gastrointestinal: soft, non-tender Musculoskeletal: nl extremities to inspection Extremities: normal pulses Neurological: GLASSIE II-XII intact, nl mental status, nl speech, nl strength Results Result Diagram: 11/22/18 0704 11/23/18 1050 Results 24hrs Laboratory Tests Test 11/22/18 13:57 11/22/18 17:21 11/22/18 20:58 11/23/18 02:02 Bedside Glucose 191 202 253 H 301 H Test 11/23/18 04:40 11/23/18 07:59 11/23/18 10:13 11/23/18 10:50 Uric Acid 9.2 H Creatine Kinase 73 Bedside Glucose 340 H 324 H Sodium Level 135 Potassium Level 4.8 Chloride Level 98 Carbon Dioxide Level 25 Anion Gap 12 Blood Urea Nitrogen 74 H Creatinine 4.22 H Est Glomerular 14 L Filtrat Rate mL/min Glucose Level 313 H Calcium Level 8.5 Test 11/23/18 11:52 Bedside Glucose 265 H Medications Medication Current Medications Hydralazine HCl (Apresoline) 10 mg Q4H PRN IV ELEVATED BP Last administered on 11/21/18 11:16; Admin Dose 10 MG; Start 11/21/18 at 11:00 Sodium Chloride 1,000 ml @ 50 mls/hr Q20H IV Last administered on 11/23/18 06:44; Admin Dose 50 MLS/HR; Start 11/21/18 at 11:16 IV Flush (NS 3 ml) 3 ml PER PROTOCOL IV ; Start 11/21/18 at 11:30 Ondansetron HCl (Zofran Inj) 4 mg Q6H PRN IV NAUSEA/VOMITING; Start 11/21/18 at 11:30 Acetaminophen (Tylenol Tab) 650 mg Q6H PRN PO .PAIN 1-3 OR TEMP Last administered on 11/22/18 21:28; Admin Dose 650 MG; Start 11/21/18 at 11:30 Acetaminophen/ Hydrocodone Bitart ([place] (5/325)) 1 tab Q6H PRN PO .MOD PAIN 4- 6 Last administered on 11/23/18 10:09; Admin Dose 1 TAB; Start 11/21/18 at 11:30 Morphine Sulfate (morphine) 2 mg Q4H PRN IV .SEVERE PAIN 7-10 Last administered on 11/21/18 21:09; Admin Dose 2 MG; Start 11/21/18 at 11:30 Famotidine (Pepcid Iv) 20 mg Q12 IV Last administered on 11/23/18 08:16; Admin Dose 20 MG; Start 11/21/18 at 21:00 Heparin Sodium (Porcine) (Heparin (5000 Units/1ml)) 5,000 unit Q12 SC Last administered on 11/23/18 08:16; Admin Dose 5,000 UNIT; Start 11/21/18 at 21:00 Insulin Aspart (Novolog Insulin Pen) NOVOLOG *MILD* ALGORITHM WITH MEALS BEDTIME SC Last administered on 11/23/18at 12:07; Admin Dose 4 UNIT; Start 11/21/18 at 12:00 Miscellaneous Information 1 ea NOTE XX ; Start 11/21/18 at 12:00 Glucose (Glutose) 15 gm Q15M PRN PO DECREASED GLUCOSE; Start 11/21/18 at 12:00 Glucose (Glutose) 22.5 gm Q15M PRN PO DECREASED GLUCOSE; Start 11/21/18 at 12:00 Dextrose (D50w Syringe) 25 ml Q15M PRN IV DECREASED GLUCOSE; Start 11/21/18 at 12:00 Dextrose (D50w Syringe) 50 ml Q15M PRN IV DECREASED GLUCOSE; Start 11/21/18 at 12:00 Glucagon (Glucagen) 1 mg Q15M PRN IM DECREASED GLUCOSE; Start 11/21/18 at 12:00 Glucose (Glutose) 15 gm Q15M PRN BUCCAL DECREASED GLUCOSE; Start 11/21/18 at 12:00 Albuterol (Ventolin Hfa) 2 puff Q6 PRN INH SHORTNESS OF BREATH; Start 11/21/18 at 18:00 Aspirin (Aspirin) 81 mg DAILY PO Last administered on 11/23/18at 08:14; Admin Dose 81 MG; Start 11/22/18 at 09:00 Ferrous Sulfate (Ferrous Sulfate (Ec)) 325 mg BID PO Last administered on 11/23/18at 08:14; Admin Dose 325 MG; Start 11/21/18 at 21:00 Gabapentin (Neurontin) 300 mg TID PO Last administered on 11/23/18at 12:07; Admin Dose 300 MG; Start 11/21/18 at 21:00 Isosorbide Mononitrate (Imdur) 30 mg DAILY PO Last administered on 11/23/18at 08:14; Admin Dose 30 MG; Start 11/22/18 at 09:00 Thiamine HCl (Vitamin B1) 100 mg DAILY PO Last administered on 11/23/18at 08:16; Admin Dose 100 MG; Start 11/22/18 at 09:00 Fluticasone/ Vilanterol (Breo Ellipta 200-25 Mcg Inh) 1 inh DAILY INH Last administered on 11/23/18 08:15; Admin Dose 1 INH; Start 11/22/18 at 09:00 Metoprolol Succinate (Toprol Xl) 50 mg BID PO Last administered on 11/23/18 08:15; Admin Dose 50 MG; Start 11/21/18 at 21:00 Linagliptin (Tradjenta) 5 mg DAILY PO Last administered on 11/23/18 08:15; Admin Dose 5 MG; Start 11/21/18 at 18:00 Montelukast Sodium (Singulair) 10 mg HS PO Last administered on 11/22/18 21:01; Admin Dose 10 MG; Start 11/21/18 at 21:00 Diagnostic Test (Pha) (Accu-Chek) 1 ea AC MEALS XX Last administered on 11/23/18 11:53; Admin Dose 1 EA; Start 11/22/18 at 07:30 Diagnostic Test (Pha) (Accu-Chek) 1 ea 2 HOURS AFTER MEALS XX Last administered on 11/23/18 10:14; Admin Dose 1 EA; Start 11/21/18 at 20:05 Tiotropium [place] (Spiriva) 1 inh DAILY INH Last administered on 11/23/18 10:05; Admin Dose 1 INH; Start 11/21/18 at 19:30 Phenazopyridine HCl (Pyridium) 100 mg BID PO Last administered on 11/23/18 08:15; Admin Dose 100 MG; Start 11/21/18 at 21:30 Polyethylene Glycol (Miralax) 17 gm DAILY PO Last administered on 11/23/18 08:15; Admin Dose 17 GM; Start 11/22/18 at 10:30 Nateglinide (Starlix) 120 mg AC MEALS PO Last administered on 11/23/18 11:53; Admin Dose 120 MG; Start 11/23/18 at 07:30 Ferric Sodium Gluconate Complex 125 mg/Sodium Chloride 110 ml @ 110 mls/hr DAILY@1300 IVPB Last administered on 11/23/18 12:07; Admin Dose 110 MLS/HR; Start 11/23/18 at 13:00; Stop 11/27/18 at 13:59 Doxazosin Mesylate (Cardura) 8 mg HS PO ; Start 11/23/18 at 21:00; Status UNV Insulin Glargine (Lantus) 26 units DAILY@2000 SC ; Start 11/23/18 at 20:00; Status UNV Insulin Glargine (Lantus) 8 units ONCE ONCE SC ; Start 11/23/18 at 13:30; Stop 11/23/18 at 13:31; Status UNV Pioglitazone HCl (Actos) 15 mg DAILY PO ; Start 11/23/18 at 13:30; Status UNV Calcitriol (Calcitriol) 1 mcg ONCE ONCE IV ; Start 11/23/18 at 13:30; Stop 11/23/18 at 13:31; Status UNV Calcitriol (Rocaltrol) 0.25 mcg QAM PO ; Start 11/24/18 at 09:00; Status UNV Ergocalciferol (Drisdol Liquid (Ped)) 50,000 units ONCE ONCE PO ; Start 11/23/18 at 13:30; Stop 11/23/18 at 13:31; Status UNV Allopurinol (Zyloprim) 100 mg DAILY PO ; Start 11/23/18 at 13:30; Status UNV BON GUERRERO MD Nov 23, 2018 13:27
--- NOTE | 2018-11-23 13:27 | CONS ---
Assessment/Plan Assessment/Plan Problems: (1) Diabetes mellitus type 2 in obese Status: Chronic Comment: His blood sugar control still is not adequate. And can go upward on the basal insulin. Please note were not using mealtime insulin due to his having carefully informed us that he will not take mealtime insulin at home. We will add in some further insulin sensitizing medications (2) Essential hypertension Status: Chronic Comment: Adequate control now off of dihydropyridine calcium channel james. Increase alpha blockade to full dosage, and consider resumption of angiotensin II receptor james (3) Diastolic dysfunction Status: Chronic Comment: Control blood pressure and pulse (4) Left ventricular hypertrophy Status: Chronic Comment: Control blood pressure and pulse (5) Acute kidney injury Status: Acute Comment: As per nephrology. (6) Chronic kidney disease, stage 3 (moderate) Status: Chronic Comment: As per nephrology. (7) Hyperuricemia without signs inflammatory arthritis/tophaceous disease Status: Chronic Comment: Low-dose allopurinol goal of uric acid level of less than 6 (8) Prostatic hypertrophy Status: Chronic Comment: Full dose alpha blockade (9) COPD (chronic obstructive pulmonary disease) Status: Chronic Comment: Stable on current medication regimen Qualifiers: COPD type: emphysema Emphysema type: panlobular Qualified Codes: J43.1 - Panlobular emphysema Consultation Date/Type/Reason Admit Date/Time Nov 21, 2018 at 09:57 Initial Consult Date 11/21/18 Type of Consult Endocrinology Reason for Consultation Diabetes mellitus type 2 with sugars out of control; acute kidney injury on chronic kidney disease stage III; organic heart disease-coronary artery disease- diastolic dysfunction-heart failure with preserved ejection fraction; essential hypertension; benign prostatic hypertrophy; hyperlipidemia; hyperuricemia Requesting Provider: BRIANDA TYLER NP Date/Time of Note DATE: 11/23/18 TIME: 13:24 24 HR Interval Summary Free Text/Dictation Patient sleeping in bed but easily awakened. Denies any new complaints Constitutional: no complaints Detailed Summary Cardiovascular: no complaints Gastrointestinal: no complaints Genitourinary: no complaints Exam/Review of Systems Exam Vitals Vital Signs Date Temp Pulse Resp B/P (MAP) Pulse Ox O2 O2 Flow FiO2 Time Delivery Rate 11/23/18 Nasal 2.0 08:10 Cannula 11/23/18 98.6 75 20 168/77 96 08:00 (107) Intake and Output 11/22/18 11/22/18 11/23/18 1515:00 23:00 07:00 IntakeIntake Total 1520 ml 600 ml 1560 ml OutputOutput Total 500 ml 900 ml BalanceBalance 1520 ml 100 ml 660 ml Constitutional: alert Respiratory: clear to auscultation, normal air movement Cardiovascular: regular rate and rhythm, nl pulses Musculoskeletal: nl extremities to inspection Results Result Diagram: 11/22/18 0704 11/23/18 1050 Results 24hrs Laboratory Tests Test 11/22/18 13:57 11/22/18 17:21 11/22/18 20:58 11/23/18 02:02 Bedside Glucose 191 202 253 H 301 H Test 11/23/18 04:40 11/23/18 07:59 11/23/18 10:13 11/23/18 10:50 Uric Acid 9.2 H Creatine Kinase 73 Bedside Glucose 340 H 324 H Sodium Level 135 Potassium Level 4.8 Chloride Level 98 Carbon Dioxide Level 25 Anion Gap 12 Blood Urea Nitrogen 74 H Creatinine 4.22 H Est Glomerular 14 L Filtrat Rate mL/min Glucose Level 313 H Calcium Level 8.5 Test 11/23/18 11:52 Bedside Glucose 265 H Medications Medication Current Medications Hydralazine HCl (Apresoline) 10 mg Q4H PRN IV ELEVATED BP Last administered on 11/21/18at 11:16; Admin Dose 10 MG; Start 11/21/18 at 11:00 Sodium Chloride 1,000 ml @ 50 mls/hr Q20H IV Last administered on 11/23/18at 06:44; Admin Dose 50 MLS/HR; Start 11/21/18 at 11:16 IV Flush (NS 3 ml) 3 ml PER PROTOCOL IV ; Start 11/21/18 at 11:30 Ondansetron HCl (Zofran Inj) 4 mg Q6H PRN IV NAUSEA/VOMITING; Start 11/21/18 at 11:30 Acetaminophen (Tylenol Tab) 650 mg Q6H PRN PO .PAIN 1-3 OR TEMP Last administered on 11/22/18at 21:28; Admin Dose 650 MG; Start 11/21/18 at 11:30 Acetaminophen/ Hydrocodone Bitart ([place] (5/325)) 1 tab Q6H PRN PO .MOD PAIN 4- 6 Last administered on 11/23/18at 10:09; Admin Dose 1 TAB; Start 11/21/18 at 11:30 Morphine Sulfate (morphine) 2 mg Q4H PRN IV .SEVERE PAIN 7-10 Last administered on 11/21/18at 21:09; Admin Dose 2 MG; Start 11/21/18 at 11:30 Famotidine (Pepcid Iv) 20 mg Q12 IV Last administered on 11/23/18 08:16; Admin Dose 20 MG; Start 11/21/18 at 21:00 Heparin Sodium (Porcine) (Heparin (5000 Units/1ml)) 5,000 unit Q12 SC Last administered on 11/23/18 08:16; Admin Dose 5,000 UNIT; Start 11/21/18 at 21:00 Insulin Aspart (Novolog Insulin Pen) NOVOLOG *MILD* ALGORITHM WITH MEALS BEDTIME SC Last administered on 11/23/18at 12:07; Admin Dose 4 UNIT; Start 11/21/18 at 12:00 Miscellaneous Information 1 ea NOTE XX ; Start 11/21/18 at 12:00 Glucose (Glutose) 15 gm Q15M PRN PO DECREASED GLUCOSE; Start 11/21/18 at 12:00 Glucose (Glutose) 22.5 gm Q15M PRN PO DECREASED GLUCOSE; Start 11/21/18 at 12:00 Dextrose (D50w Syringe) 25 ml Q15M PRN IV DECREASED GLUCOSE; Start 11/21/18 at 12:00 Dextrose (D50w Syringe) 50 ml Q15M PRN IV DECREASED GLUCOSE; Start 11/21/18 at 12:00 Glucagon (Glucagen) 1 mg Q15M PRN IM DECREASED GLUCOSE; Start 11/21/18 at 12:00 Glucose (Glutose) 15 gm Q15M PRN BUCCAL DECREASED GLUCOSE; Start 11/21/18 at 12:00 Albuterol (Ventolin Hfa) 2 puff Q6 PRN INH SHORTNESS OF BREATH; Start 11/21/18 at 18:00 Aspirin (Aspirin) 81 mg DAILY PO Last administered on 11/23/18at 08:14; Admin Dose 81 MG; Start 11/22/18 at 09:00 Ferrous Sulfate (Ferrous Sulfate (Ec)) 325 mg BID PO Last administered on 11/23/18at 08:14; Admin Dose 325 MG; Start 11/21/18 at 21:00 Gabapentin (Neurontin) 300 mg TID PO Last administered on 11/23/18 12:07; Admin Dose 300 MG; Start 11/21/18 at 21:00 Isosorbide Mononitrate (Imdur) 30 mg DAILY PO Last administered on 11/23/18 08:14; Admin Dose 30 MG; Start 11/22/18 at 09:00 Thiamine HCl (Vitamin B1) 100 mg DAILY PO Last administered on 11/23/18 08:16; Admin Dose 100 MG; Start 11/22/18 at 09:00 Fluticasone/ Vilanterol (Breo Ellipta 200-25 Mcg Inh) 1 inh DAILY INH Last administered on 11/23/18 08:15; Admin Dose 1 INH; Start 11/22/18 at 09:00 Doxazosin Mesylate (Cardura) 4 mg HS PO Last administered on 11/21/18 20:42; Admin Dose 4 MG; Start 11/21/18 at 21:00 Metoprolol Succinate (Toprol Xl) 50 mg BID PO Last administered on 11/23/18 08:15; Admin Dose 50 MG; Start 11/21/18 at 21:00 Linagliptin (Tradjenta) 5 mg DAILY PO Last administered on 11/23/18 08:15; Admin Dose 5 MG; Start 11/21/18 at 18:00 Montelukast Sodium (Singulair) 10 mg HS PO Last administered on 11/22/18 21:01; Admin Dose 10 MG; Start 11/21/18 at 21:00 Diagnostic Test (Pha) (Accu-Chek) 1 ea AC MEALS XX Last administered on 11/23/18 11:53; Admin Dose 1 EA; Start 11/22/18 at 07:30 Diagnostic Test (Pha) (Accu-Chek) 1 ea 2 HOURS AFTER MEALS XX Last administered on 11/23/18 10:14; Admin Dose 1 EA; Start 11/21/18 at 20:05 Tiotropium [place] (Spiriva) 1 inh DAILY INH Last administered on 11/23/18 10:05; Admin Dose 1 INH; Start 11/21/18 at 19:30 Phenazopyridine HCl (Pyridium) 100 mg BID PO Last administered on 11/23/18 08:15; Admin Dose 100 MG; Start 11/21/18 at 21:30 Polyethylene Glycol (Miralax) 17 gm DAILY PO Last administered on 11/23/18at 08:15; Admin Dose 17 GM; Start 11/22/18 at 10:30 Insulin Glargine (Lantus) 14 units DAILY@2000 SC Last administered on 11/22/18at 21:11; Admin Dose 14 UNITS; Start 11/22/18 at 20:00 Nateglinide (Starlix) 120 mg AC MEALS PO Last administered on 11/23/18at 11:53; Admin Dose 120 MG; Start 11/23/18 at 07:30 Ferric Sodium Gluconate Complex 125 mg/Sodium Chloride 110 ml @ 110 mls/hr DAILY@1300 IVPB Last administered on 11/23/18at 12:07; Admin Dose 110 MLS/HR; Start 11/23/18 at 13:00; Stop 11/27/18 at 13:59 RENÉE BRANTLEY MD Nov 23, 2018 13:27
[2018-11-23] MEDS ORDERED: ALLOPURINOL 100 MG TAB PO SCH (13:30)
[2018-11-23 14:00] VITALS: BP 132/69; PULSE 80; RESP 20
[2018-11-23] MEDS ORDERED: ERGOCALCIFEROL (8000 UNITS/ML PO SYG) PO ONE (14:00)
[2018-11-23] MEDS ORDERED: INSULIN GLARGINE [LANTus] (100 UNITS/ML) SYG SC ONE (15:00)
[2018-11-23] MEDS ORDERED: CALCITRIOL 1 MCG INJ IV ONE (15:00)
[2018-11-23] MEDS: PIOGLITAZONE 15 MG TAB PO SCH (16:30)
--- NOTE | 2018-11-23 17:26 | RADRPT ---
Echocardiogram Report Patient Name: MIGUEL ÁNGEL SAMAYOAPatient ID: [id number] : 1955 (63y 9m)Study Date: 11/23/2018 7:09:20 AM Gender: MAccession #: [id number] Tech: JenniHeavenly Evans [facility] Location: 2245 Ref.Physician: BON GUERRERO Height(Cm): BSA: Weight(Kg): Quality: Technically Difficult StudyOrder Physician: BON GUERRERO Account #: Procedures: Echocardiographic Report: Transthoracic echocardiogram with complete 2D, M-Mode, and doppler examination. Indications: Congestive Heart Failure. Measurements: 2D/M Mode Doppler Measurement Value Normal Range Measurement Value Normal Range LVIDd 2D 4.2 [ 4.2 - 5.8 ] cm AV Peak Domenico 1.3 [ 100.0 - 170.0 ] cm/sec LVIDs 2D 2.2 [ 2.5 - 4.0 ] cm AV Peak PG 7.0 [ 2.0 - 9.0 ] mmHg LVPWd 2D 1.5 [ 0.6 - 1.0 ] cm LVOT Peak Domenico 1.3 [ 70.0 - 110.0 ] cm/sec IVSd 2D 1.5 [ 0.6 - 1.0 ] cm LVOT Peak PG 6.0 [ 2.0 - 6.0 ] mmHg AoR Diam 2D 3.0 [ 2.6 - 3.4 ] cm MV E Peak Domenico 1.4 [ 60.0 - 130.0 ] cm/sec EDV 2D 77.3 [ 62.0 - 150.0 ] ml MV Decel Time 116 [ 104 - 258 ] msec ESV 2D 16.8 [ 21.0 - 61.0 ] ml Lat E` Domenico 0.2 [ 10.0 - 15.0 ] cm/sec EF 2D 78.3 [ 52.0 - 72.0 ] percent Lateral E/E` 7.7 [ 1.0 - 2.0 ] ratio LA Dimen 2D 4.5 [ 3.0 - 4.0 ] cm Med E` Domenico 0.1 cm/sec TR Peak Domenico 2.5 [ 100.0 - 280.0 ] cm/sec TR Peak PG 26.0 mmHg RVSP 41.0 [ 10.0 - 36.0 ] mmHg RA Pressure 15.0 mmHg Findings: Left Ventricle: Normal left ventricular systolic function. Normal left ventricular cavity size. Moderate concentric left ventricular hypertrophy. Ejection fraction is visually estimated at 60 %. Tissue Doppler/Mitral Doppler indices are indeterminate in this study due to the presence of atrial fibrillation. Right Ventricle: Normal right ventricular size. Normal right ventricular systolic function. Left Atrium: There is mild enlargement of left atrium. Right Atrium: The right atrium is normal in size. Mitral Valve: Mild mitral leaflet calcification. Mild mitral annular calcification. Trace mitral regurgitation. Aortic Valve: Normal appearance of the aortic valve. No significant aortic stenosis or insufficiency. Tricuspid Valve: Normal appearance of the tricuspid valve. The estimated Peak RVSP is 41 mmHg. There is mild tricuspid regurgitation. Pulmonic Valve: Normal pulmonic valve appearance. Pericardium: Normal pericardium with no significant pericardial effusion. Aorta: Normal aortic root. IVC: Normal size and normal respiratory collapse consistent with normal right atrial pressure. Conclusions: Normal left ventricular systolic function. Normal left ventricular cavity size. Moderate concentric left ventricular hypertrophy. Ejection fraction is visually estimated at 60 %. Tissue Doppler/Mitral Doppler indices are indeterminate in this study due to the presence of atrial fibrillation. There is mild enlargement of left atrium. Mild mitral leaflet calcification. Mild mitral annular calcification. Trace mitral regurgitation. Normal appearance of the tricuspid valve. The estimated Peak RVSP is 41 mmHg. There is mild tricuspid regurgitation. Electronically Signed By: Humble Yin 2018-11-23 17:25:39 PDT
[2018-11-23 20:00] VITALS: BP 133/63; PULSE 71; RESP 19
[2018-11-23] MEDS ORDERED: INSULIN GLARGINE [LANTus] (100 UNITS/ML) SYG SC SCH (20:00)
[2018-11-23] MEDS: MONTELUKAST 10 MG TAB PO SCH (20:30)
[2018-11-23] MEDS: DOXAZOSIN 4 MG TAB PO SCH (20:30)
[2018-11-23] MEDS: MAGNESIUM HYDROXIDE 30ML CUP PO PRN (23:23)
[2018-11-24 02:00] VITALS: BP 130/64; PULSE 72; RESP 19
[2018-11-24 08:00] VITALS: BP 149/70; PULSE 88; RESP 18
[2018-11-24] MEDS: CALCITRIOL 0.25 MCG CAP PO SCH (08:14)
[2018-11-24] MEDS: FERROUS SULFATE (EC) 325 MG TAB PO SCH ×2 (08:14→20:34)
[2018-11-24] MEDS: POLYETHYLENE GLYCOL 17 GM PACKET PO SCH (08:14)
[2018-11-24] MEDS: FAMOTIDINE 20 MG INJ IV SCH (08:15)
[2018-11-24] MEDS: PHENAZOPYRIDINE 100 MG TAB PO SCH ×2 (08:15→20:43)
[2018-11-24] MEDS: NATEGLINIDE 120 MG TAB PO SCH ×3 (08:15→18:31)
[2018-11-24] MEDS: FLUTICASONE/VILANTEROL 200-25 INH DEVICE INH SCH (08:15)
[2018-11-24] MEDS: GABAPENTIN 300 MG CAP PO SCH ×3 (08:15→20:34)
[2018-11-24] MEDS: PIOGLITAZONE 15 MG TAB PO SCH (08:15)
[2018-11-24] MEDS: THIAMINE 100 MG TAB PO SCH (08:15)
[2018-11-24] MEDS: METOPROLOL (XL) 50 MG TAB PO SCH ×2 (08:16→20:43)
[2018-11-24] MEDS: ASPIRIN 81 MG TAB PO SCH (08:16)
[2018-11-24] MEDS: ISOSORBIDE MONONITRATE(SR)30 MG TAB PO SCH (08:16)
[2018-11-24] MEDS: LINAGLIPTIN 5 MG TABLET PO SCH (08:16)
[2018-11-24] MEDS: ALLOPURINOL 100 MG TAB PO SCH ×2 (08:16→20:34)
[2018-11-24] MEDS: TIOTROPIUM 18 MCG CAPSULE INHA DEV INH SCH (08:16)
[2018-11-24] MEDS: HEPARIN 5,000 UNIT/1 ML VIAL SC SCH ×2 (08:18→20:39)
[2018-11-24] MEDS: INSULIN ASPART [NOVOLOG] 3 ML PEN SC SCH ×4 (08:19→20:41)
[2018-11-24] MEDS: ACCU-CHEK XX SCH ×6 (08:23→20:05)
[2018-11-24 10:00] VITALS: BP 128/76; PULSE 76; RESP 18
[2018-11-24] MEDS: SOD FERRIC GLUC COMPLX 125 MG in SOD CHLORIDE 0.9% 100 ML IVPB SCH (12:00)
--- NOTE | 2018-11-24 13:27 | CONS ---
Assessment/Plan Assessment/Plan Problems: (1) Diabetes mellitus type 2 in obese Status: Chronic Comment: His diabetic control is still not at goal but we have certainly made progress with this. Continue adjusting insulin. Please note he is very carefully defined he will only do one injection of insulin per day at home if that. As such ties my hands I would otherwise be using mealtime insulin. Instead we are using oral nateglinide at mealtimes to cover for the meals at the present maximum dosage. To assist were also using pioglitazone, once a day insulin, and a DPP 4 inhibitor. A SGLT2 drug cannot be used in this setting due to his renal insufficiency same issue applies to Metformin. (2) Essential hypertension Status: Chronic Comment: Adequate control with adjustment of medications using regimen will be somewhat kettle cleaner for his overall physiologic status and volume status (3) Prostatic hypertrophy Status: Chronic Comment: On full dose alpha blockade. Consider adding in a 5 alpha reductase inhibitor and checking his postvoid residuals (4) Obesity (BMI 30.0-34.9) Status: Chronic Comment: Calorie restriction diet (5) Acute kidney injury Status: Acute Comment: This is improved somewhat. Actually be part of this is a prerenal setting we go ahead and give him a fluid bolus to see if we can get some improvement (6) Chronic kidney disease, stage 3 (moderate) Status: Chronic Comment: Noted and chronic. (7) Hyperuricemia without signs inflammatory arthritis/tophaceous disease Status: Chronic Comment: He is on allopurinol and the [employer] already doubled the dosage I started yesterday (8) Vitamin D deficiency Status: Chronic Comment: This is being repleted (9) Diastolic dysfunction Status: Chronic Comment: Control blood pressure and pulse rate (10) COPD (chronic obstructive pulmonary disease) Status: Chronic Comment: Adequate control on standard medication therapy Qualifiers: COPD type: emphysema Emphysema type: panlobular Qualified Codes: J43.1 - Panlobular emphysema Consultation Date/Type/Reason Admit Date/Time Nov 21, 2018 at 09:57 Initial Consult Date 11/21/18 Type of Consult Endocrinology Reason for Consultation Diabetes mellitus type 2 with poor control; acute kidney injury on chronic kidney disease stage IV; hypertension; benign prostatic hypertrophy; hyperlipidemia; diastolic dysfunction; atrial fibrillation; hyperuricemia Requesting Provider: BRIANDA TYLER NP Date/Time of Note DATE: 11/24/18 TIME: 13:22 24 HR Interval Summary Free Text/Dictation Patient reports his breathing feels okay. No specific complaints except his sugars being high. Please note he does describe his sugars here are better than they were at home which were terrible Constitutional: no complaints Detailed Summary Endocrine: no complaints Exam/Review of Systems Exam Vitals Vital Signs Date Temp Pulse Resp B/P (MAP) Pulse Ox O2 O2 Flow FiO2 Time Delivery Rate 11/24/18 98.7 88 18 149/70 96 08:00 (96) 11/23/18 Nasal 2.0 08:10 Cannula Intake and Output 11/23/18 11/23/18 11/24/18 1515:00 23:00 07:00 IntakeIntake Total 760 ml 450 ml 500 ml OutputOutput Total 600 ml 900 ml 500 ml BalanceBalance 160 ml -450 ml 0 ml Constitutional: alert, oriented Respiratory: clear to auscultation, normal air movement Cardiovascular: regular rate and rhythm, nl pulses Gastrointestinal: soft, nl liver, spleen, non-tender Results Result Diagram: 11/22/18 0704 11/24/18 1049 Results 24hrs Laboratory Tests Test 11/23/18 14:11 11/23/18 16:45 11/23/18 20:28 11/23/18 23:17 Bedside Glucose 291 H 242 H 147 138 Test 11/24/18 07:56 11/24/18 10:20 11/24/18 10:49 11/24/18 11:54 Bedside Glucose 170 225 H 286 H Sodium Level 139 Potassium Level 4.5 Chloride Level 99 Carbon Dioxide Level 29 Anion Gap 11 Blood Urea Nitrogen 75 H Creatinine 3.48 H Est Glomerular 18 L Filtrat Rate mL/min Glucose Level 259 H Calcium Level 9.0 Medications Medication Current Medications Hydralazine HCl (Apresoline) 10 mg Q4H PRN IV ELEVATED BP Last administered on 11/21/18at 11:16; Admin Dose 10 MG; Start 11/21/18 at 11:00 IV Flush (NS 3 ml) 3 ml PER PROTOCOL IV ; Start 11/21/18 at 11:30 Ondansetron HCl (Zofran Inj) 4 mg Q6H PRN IV NAUSEA/VOMITING; Start 11/21/18 at 11:30 Acetaminophen (Tylenol Tab) 650 mg Q6H PRN PO .PAIN 1-3 OR TEMP Last administered on 11/22/18 21:28; Admin Dose 650 MG; Start 11/21/18 at 11:30 Acetaminophen/ Hydrocodone Bitart ([place] (5/325)) 1 tab Q6H PRN PO .MOD PAIN 4- 6 Last administered on 11/23/18at 10:09; Admin Dose 1 TAB; Start 11/21/18 at 11:30 Morphine Sulfate (morphine) 2 mg Q4H PRN IV .SEVERE PAIN 7-10 Last administered on 11/21/18at 21:09; Admin Dose 2 MG; Start 11/21/18 at 11:30 Heparin Sodium (Porcine) (Heparin (5000 Units/1ml)) 5,000 unit Q12 SC Last administered on 11/24/18at 08:18; Admin Dose 5,000 UNIT; Start 11/21/18 at 21:00 Insulin Aspart (Novolog Insulin Pen) NOVOLOG *MILD* ALGORITHM WITH MEALS BEDTIME SC Last administered on 11/24/18at 11:59; Admin Dose 4 UNIT; Start at 12:00 Miscellaneous Information 1 ea NOTE XX ; Start 11/21/18 at 12:00 Glucose (Glutose) 15 gm Q15M PRN PO DECREASED GLUCOSE; Start 11/21/18 at 12:00 Glucose (Glutose) 22.5 gm Q15M PRN PO DECREASED GLUCOSE; Start 11/21/18 at 12:00 Dextrose (D50w Syringe) 25 ml Q15M PRN IV DECREASED GLUCOSE; Start 11/21/18 at 12:00 Dextrose (D50w Syringe) 50 ml Q15M PRN IV DECREASED GLUCOSE; Start 11/21/18 at 12:00 Glucagon (Glucagen) 1 mg Q15M PRN IM DECREASED GLUCOSE; Start 11/21/18 at 12:00 Glucose (Glutose) 15 gm Q15M PRN BUCCAL DECREASED GLUCOSE; Start 11/21/18 at 12:00 Albuterol (Ventolin Hfa) 2 puff Q6 PRN INH SHORTNESS OF BREATH; Start 11/21/18 at 18:00 Aspirin (Aspirin) 81 mg DAILY PO Last administered on 11/24/18at 08:16; Admin Dose 81 MG; Start 11/22/18 at 09:00 Ferrous Sulfate (Ferrous Sulfate (Ec)) 325 mg BID PO Last administered on 11/24/18 08:14; Admin Dose 325 MG; Start 11/21/18 at 21:00 Gabapentin (Neurontin) 300 mg TID PO Last administered on 11/24/18 12:00; Admin Dose 300 MG; Start 11/21/18 at 21:00 Isosorbide Mononitrate (Imdur) 30 mg DAILY PO Last administered on 11/24/18 08:16; Admin Dose 30 MG; Start 11/22/18 at 09:00 Thiamine HCl (Vitamin B1) 100 mg DAILY PO Last administered on 11/24/18 08:15; Admin Dose 100 MG; Start 11/22/18 at 09:00 Fluticasone/ Vilanterol (Breo Ellipta 200-25 Mcg Inh) 1 inh DAILY INH Last administered on 11/24/18 08:15; Admin Dose 1 INH; Start 11/22/18 at 09:00 Metoprolol Succinate (Toprol Xl) 50 mg BID PO Last administered on 11/24/18 08:16; Admin Dose 50 MG; Start 11/21/18 at 21:00 Linagliptin (Tradjenta) 5 mg DAILY PO Last administered on 11/24/18 08:16; Admin Dose 5 MG; Start 11/21/18 at 18:00 Montelukast Sodium (Singulair) 10 mg HS PO Last administered on 11/23/18 20:30; Admin Dose 10 MG; Start 11/21/18 at 21:00 Diagnostic Test (Pha) (Accu-Chek) 1 ea AC MEALS XX Last administered on 11/24/18 11:55; Admin Dose 1 EA; Start 11/22/18 at 07:30 Diagnostic Test (Pha) (Accu-Chek) 1 ea 2 HOURS AFTER MEALS XX Last administered on 11/24/18 10:21; Admin Dose 1 EA; Start 11/21/18 at 20:05 Tiotropium [place] (Spiriva) 1 inh DAILY INH Last administered on 11/24/18 08:16; Admin Dose 1 INH; Start 11/21/18 at 19:30 Phenazopyridine HCl (Pyridium) 100 mg BID PO Last administered on 11/24/18 08:15; Admin Dose 100 MG; Start 11/21/18 at 21:30 Polyethylene Glycol (Miralax) 17 gm DAILY PO Last administered on 11/24/18 08:14; Admin Dose 17 GM; Start 11/22/18 at 10:30 Nateglinide (Starlix) 120 mg AC MEALS PO Last administered on 11/24/18 11:55; Admin Dose 120 MG; Start 11/23/18 at 07:30 Ferric Sodium Gluconate Complex 125 mg/Sodium Chloride 110 ml @ 110 mls/hr DAILY@1300 IVPB Last administered on 11/24/18 12:00; Admin Dose 110 MLS/HR; Start 11/23/18 at 13:00; Stop 11/27/18 at 13:59 Doxazosin Mesylate (Cardura) 8 mg HS PO Last administered on 11/23/18 20:30; Admin Dose 8 MG; Start 11/23/18 at 21:00 Calcitriol (Rocaltrol) 0.25 mcg QAM PO Last administered on 11/24/18 08:14; Admin Dose 0.25 MCG; Start 11/24/18 at 09:00 Magnesium Hydroxide (Milk Of Mag) 30 ml Q12 PRN PO CONSTIPATION Last administered on 11/23/18 23:23; Admin Dose 30 ML; Start 11/23/18 at 22:30 Allopurinol (Zyloprim) 100 mg BID PO Last administered on 11/24/18 08:16; Admin Dose 100 MG; Start 11/24/18 at 09:00 Insulin Glargine (Lantus) 30 units DAILY@2000 SC ; Start 11/24/18 at 20:00; Status UNV Pioglitazone HCl (Actos) 30 mg DAILY PO ; Start 11/25/18 at 09:00; Status UNV Ergocalciferol (Drisdol Liquid (Ped)) 50,000 units ONCE ONCE PO ; Start 11/24/18 at 13:30; Stop 11/24/18 at 13:31; Status UNV Lactated Ringer's 500 ml @ 500 mls/hr Q1H ONCE IV ; Start 11/24/18 at 13:30; Stop 11/24/18 at 14:29; Status UNV Famotidine (Pepcid) 20 mg DAILY PO ; Start 11/25/18 at 09:00 RENÉE BRANTLEY MD Nov 24, 2018 13:27
[2018-11-24] MEDS ORDERED: LACTATED RINGER'S 500 ML IV ONE (13:30)
[2018-11-24 14:00] VITALS: BP 128/76; PULSE 76; RESP 18
--- NOTE | 2018-11-24 14:23 | PN ---
Date/Time of Note Date/Time of Note DATE: 11/24/18 TIME: 14:21 Assessment/Plan VTE Prophylaxis Risk score (from Ns)>0 risk: 3 SCD applied (from Ns): Yes Pharmacological prophylaxis: heparin Lines/Catheters IV Catheter Type (from Nrs): [place] Lock Urinary Cath still in place: Yes Reason Cath still needed: other (indicate) (monitor I&O) Assessment/Plan Hospital Course assessment and plan 1. Diabetes. - A1c.: 13.3 - [employer] [id number] following - continue antidiabetic regimen 2. Hypertension. - continue antihypertensives 3. Acute renal insufficiency. 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 - correct electrolytes as needed - renal function slowly improving 4. BPH. - Continue on Flomax. 5. Diabetic neuropathy. - On Neurontin. 6. History of CHF. - Continue beta-james and ASA. - O2 PRN 7. Obesity. -Weight reduction was advised. Dispo/Plan: monitor renal function. continue insulin. monitor inhouse Discussed POC with Dr. Barlow Result Diagram: 11/22/18 0704 11/24/18 1049 Results 24hrs Laboratory Tests Test 11/23/18 16:45 11/23/18 20:28 11/23/18 23:17 11/24/18 07:56 Bedside Glucose 242 H 147 138 170 Test 11/24/18 10:20 11/24/18 10:49 11/24/18 11:54 Bedside Glucose 225 H 286 H Sodium Level 139 Potassium Level 4.5 Chloride Level 99 Carbon Dioxide Level 29 Anion Gap 11 Blood Urea Nitrogen 75 H Creatinine 3.48 H Est Glomerular 18 L Filtrat Rate mL/min Glucose Level 259 H Calcium Level 9.0 Subjective 24 Hr Interval Summary Free Text/Dictation patient resting at this time. no specific complaints Exam/Review of Systems Exam Vitals Vital Signs Date Temp Pulse Resp B/P (MAP) Pulse Ox O2 O2 Flow FiO2 Time Delivery Rate 11/24/18 98.7 88 18 149/70 96 08:00 (96) 11/23/18 Nasal 2.0 08:10 Cannula Intake and Output 11/23/18 11/23/18 11/24/18 1515:00 23:00 07:00 IntakeIntake Total 760 ml 450 ml 500 ml OutputOutput Total 600 ml 900 ml 500 ml BalanceBalance 160 ml -450 ml 0 ml Exam Constitutional: alert, oriented Psych: nl mood/affect Head: normocephalic Respiratory: clear to auscultation Cardiovascular: other (Regular rate) Neurological: nl mental status, nl speech Skin: nl turgor Results Results 24hrs Laboratory Tests Test 11/23/18 16:45 11/23/18 20:28 11/23/18 23:17 11/24/18 07:56 Bedside Glucose 242 H 147 138 170 Test 11/24/18 10:20 11/24/18 10:49 11/24/18 11:54 Bedside Glucose 225 H 286 H Sodium Level 139 Potassium Level 4.5 Chloride Level 99 Carbon Dioxide Level 29 Anion Gap 11 Blood Urea Nitrogen 75 H Creatinine 3.48 H Est Glomerular 18 L Filtrat Rate mL/min Glucose Level 259 H Calcium Level 9.0 Medications Medication Current Medications Hydralazine HCl (Apresoline) 10 mg Q4H PRN IV ELEVATED BP Last administered on 11/21/18at 11:16; Admin Dose 10 MG; Start 11/21/18 at 11:00 IV Flush (NS 3 ml) 3 ml PER PROTOCOL IV ; Start 11/21/18 at 11:30 Ondansetron HCl (Zofran Inj) 4 mg Q6H PRN IV NAUSEA/VOMITING; Start 11/21/18 at 11:30 Acetaminophen (Tylenol Tab) 650 mg Q6H PRN PO .PAIN 1-3 OR TEMP Last administered on 11/22/18at 21:28; Admin Dose 650 MG; Start 11/21/18 at 11:30 Acetaminophen/ Hydrocodone Bitart ([place] (5/325)) 1 tab Q6H PRN PO .MOD PAIN 4- 6 Last administered on 11/23/18at 10:09; Admin Dose 1 TAB; Start 11/21/18 at 11:30 Morphine Sulfate (morphine) 2 mg Q4H PRN IV .SEVERE PAIN 7-10 Last administered on 11/21/18at 21:09; Admin Dose 2 MG; Start 11/21/18 at 11:30 Heparin Sodium (Porcine) (Heparin (5000 Units/1ml)) 5,000 unit Q12 SC Last administered on 11/24/18at 08:18; Admin Dose 5,000 UNIT; Start 11/21/18 at 21:00 Insulin Aspart (Novolog Insulin Pen) NOVOLOG *MILD* ALGORITHM WITH MEALS BEDTIME SC Last administered on 11/24/18at 11:59; Admin Dose 4 UNIT; Start 11/21/18 at 12:00 Miscellaneous Information 1 ea NOTE XX ; Start 11/21/18 at 12:00 Glucose (Glutose) 15 gm Q15M PRN PO DECREASED GLUCOSE; Start 11/21/18 at 12:00 Glucose (Glutose) 22.5 gm Q15M PRN PO DECREASED GLUCOSE; Start 11/21/18 at 12:00 Dextrose (D50w Syringe) 25 ml Q15M PRN IV DECREASED GLUCOSE; Start 11/21/18 at 12:00 Dextrose (D50w Syringe) 50 ml Q15M PRN IV DECREASED GLUCOSE; Start 11/21/18 at 12:00 Glucagon (Glucagen) 1 mg Q15M PRN IM DECREASED GLUCOSE; Start 11/21/18 at 12:00 Glucose (Glutose) 15 gm Q15M PRN BUCCAL DECREASED GLUCOSE; Start 11/21/18 at 12:00 Albuterol (Ventolin Hfa) 2 puff Q6 PRN INH SHORTNESS OF BREATH; Start 11/21/18 at 18:00 Aspirin (Aspirin) 81 mg DAILY PO Last administered on 11/24/18 08:16; Admin Dose 81 MG; Start 11/22/18 at 09:00 Ferrous Sulfate (Ferrous Sulfate (Ec)) 325 mg BID PO Last administered on 11/24at 08:14; Admin Dose 325 MG; Start 11/21/18 at 21:00 Gabapentin (Neurontin) 300 mg TID PO Last administered on 11/24/18at 12:00; Admin Dose 300 MG; Start 11/21/18 at 21:00 Isosorbide Mononitrate (Imdur) 30 mg DAILY PO Last administered on 11/24/18 08:16; Admin Dose 30 MG; Start 11/22/18 at 09:00 Thiamine HCl (Vitamin B1) 100 mg DAILY PO Last administered on 11/24/18 08:15; Admin Dose 100 MG; Start 11/22/18 at 09:00 Fluticasone/ Vilanterol (Breo Ellipta 200-25 Mcg Inh) 1 inh DAILY INH Last administered on 11/24/18at 08:15; Admin Dose 1 INH; Start 11/22/18 at 09:00 Metoprolol Succinate (Toprol Xl) 50 mg BID PO Last administered on 11/24/18 08:16; Admin Dose 50 MG; Start 11/21/18 at 21:00 Linagliptin (Tradjenta) 5 mg DAILY PO Last administered on 11/24/18 08:16; Admin Dose 5 MG; Start 11/21/18 at 18:00 Montelukast Sodium (Singulair) 10 mg HS PO Last administered on 11/23/18 20: 30; Admin Dose 10 MG; Start 11/21/18 at 21:00 Diagnostic Test (Pha) (Accu-Chek) 1 ea AC MEALS XX Last administered on 11/24/18 11:55; Admin Dose 1 EA; Start 11/22/18 at 07:30 Diagnostic Test (Pha) (Accu-Chek) 1 ea 2 HOURS AFTER MEALS XX Last administered on 11/24/18 10:21; Admin Dose 1 EA; Start 11/21/18 at 20:05 Tiotropium [place] (Spiriva) 1 inh DAILY INH Last administered on 11/24/18 08 :16; Admin Dose 1 INH; Start 11/21/18 at 19:30 Phenazopyridine HCl (Pyridium) 100 mg BID PO Last administered on 11/24/18 08:15; Admin Dose 100 MG; Start 11/21/18 at 21:30 Polyethylene Glycol (Miralax) 17 gm DAILY PO Last administered on 11/24/18 08:14; Admin Dose 17 GM; Start 11/22/18 at 10:30 Nateglinide (Starlix) 120 mg AC MEALS PO Last administered on 11/24/18 11:55; Admin Dose 120 MG; Start 11/23/18 at 07:30 Ferric Sodium Gluconate Complex 125 mg/Sodium Chloride 110 ml @ 110 mls/hr DAILY@1300 IVPB Last administered on 11/24/18 12:00; Admin Dose 110 MLS/HR; Start 11/23/18 at 13:00; Stop 11/27/18 at 13:59 Doxazosin Mesylate (Cardura) 8 mg HS PO Last administered on 11/23/18 20:30; Admin Dose 8 MG; Start 11/23/18 at 21:00 Calcitriol (Rocaltrol) 0.25 mcg QAM PO Last administered on 7/18/19at 08:14; Admin Dose 0.25 MCG; Start 11/24/18 at 09:00 Magnesium Hydroxide (Milk Of Mag) 30 ml Q12 PRN PO CONSTIPATION Last administered on 11/23/18at 23:23; Admin Dose 30 ML; Start 11/23/18 at 22:30 Allopurinol (Zyloprim) 100 mg BID PO Last administered on 11/24/18at 08:16; Admin Dose 100 MG; Start 11/24/18 at 09:00 Insulin Glargine (Lantus) 30 units DAILY@2000 SC ; Start 11/24/18 at 20:00 Pioglitazone HCl (Actos) 30 mg DAILY PO ; Start 11/25/18 at 09:00 Ergocalciferol (Drisdol) 50,000 unit ONCE ONCE PO ; Start 11/24/18 at 14:30; Stop 11/24/18 at 14:31 Lactated Ringer's 500 ml @ 500 mls/hr Q1H ONCE IV ; Start 11/24/18 at 13:30; Stop 11/24/18 at 14:29 Famotidine (Pepcid) 20 mg DAILY PO ; Start 11/25/18 at 09:00 Finasteride (Proscar) 5 mg DAILY PO ; Start 11/24/18 at 13:30 BRIANDA TYLER NP Nov 24, 2018 14:23
[2018-11-24] MEDS ORDERED: ERGOCALCIFEROL 50,000 UNIT CAP PO ONE (14:30)
--- NOTE | 2018-11-24 14:32 | CONS ---
Assessment/Plan Assessment/Plan Assessment/Plan (Daily) 1. acute kidney injury on CKD IV 2. 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 h/o CHF 6. H/o DM II Plan: BUN/Cr improved to 75/3.48 , HbA1c 13.3, -, continue Cardura 4 mg pO QHS, Metoprolol 50mg BID, Nifedipine XL and Hydralazine stopped yesterday due to low BP , IV hydralazine prn if BP continues to ris again then will add Hydralazine 25 mg pO TID Renal US showed The right kidney measures 13.5 cm. There is mild right hydronephrosis.The left kidney measures 15.5 cm., Bilateral Renal cysts ECHO showed EF 60%, normal LVSF, Unable to assess Diastolic function due to atrial fibrillation calcitriol 0.25 mcg pO Q am, Uric acid 9.4- on allopurinol 100mg pO BID will follow up Consultation Date/Type/Reason Admit Date/Time Nov 21, 2018 at 09:57 Initial Consult Date 11/21/18 Type of Consult NEPHROLOGY Requesting Provider: BRIANDA TYLER NP Date/Time of Note DATE: 11/24/18 TIME: 14:32 Exam/Review of Systems Exam Vitals Vital Signs Date Temp Pulse Resp B/P (MAP) Pulse Ox O2 O2 Flow FiO2 Time Delivery Rate 11/24/18 98.7 88 18 149/70 96 08:00 (96) 11/23/18 Nasal 2.0 08:10 Cannula Intake and Output 11/23/18 11/23/18 11/24/18 1515:00 23:00 07:00 IntakeIntake Total 760 ml 450 ml 500 ml OutputOutput Total 600 ml 900 ml 500 ml BalanceBalance 160 ml -450 ml 0 ml Exam Constitutional: alert Respiratory: clear to auscultation, no crackles, no wheezing Cardiovascular: regular rate and rhythm, nl pulses Gastrointestinal: soft, non-tender Musculoskeletal: nl extremities to inspection Extremities: normal pulses 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, nl mental status, nl speech, nl strength Results Result Diagram: 11/22/18 0704 11/24/18 1049 Results 24hrs Laboratory Tests Test 11/23/18 16:45 11/23/18 20:28 11/23/18 23:17 11/24/18 07:56 Bedside Glucose 242 H 147 138 170 Test 11/24/18 10:20 11/24/18 10:49 11/24/18 11:54 11/24/18 14:02 Bedside Glucose 225 H 286 H 354 H Sodium Level 139 Potassium Level 4.5 Chloride Level 99 Carbon Dioxide Level 29 Anion Gap 11 Blood Urea Nitrogen 75 H Creatinine 3.48 H Est Glomerular 18 L Filtrat Rate mL/min Glucose Level 259 H Calcium Level 9.0 Medications Medication Current Medications Hydralazine HCl (Apresoline) 10 mg Q4H PRN IV ELEVATED BP Last administered on 11/21/18 11:16; Admin Dose 10 MG; Start 11/21/18 at 11:00 IV Flush (NS 3 ml) 3 ml PER PROTOCOL IV ; Start 11/21/18 at 11:30 Ondansetron HCl (Zofran Inj) 4 mg Q6H PRN IV NAUSEA/VOMITING; Start 11/21/18 at 11:30 Acetaminophen (Tylenol Tab) 650 mg Q6H PRN PO .PAIN 1-3 OR TEMP Last administered on 11/22/18 21:28; Admin Dose 650 MG; Start 11/21/18 at 11:30 Acetaminophen/ Hydrocodone Bitart ([place] (5/325)) 1 tab Q6H PRN PO .MOD PAIN 4- 6 Last administered on 11/23/18 10:09; Admin Dose 1 TAB; Start 11/21/18 at 11:30 Morphine Sulfate (morphine) 2 mg Q4H PRN IV .SEVERE PAIN 7-10 Last administered on 11/21/18 21:09; Admin Dose 2 MG; Start 11/21/18 at 11:30 Heparin Sodium (Porcine) (Heparin (5000 Units/1ml)) 5,000 unit Q12 SC Last administered on 11/24/18 08:18; Admin Dose 5,000 UNIT; Start 11/21/18 at 21:00 Insulin Aspart (Novolog Insulin Pen) NOVOLOG *MILD* ALGORITHM WITH MEALS BEDTIME SC Last administered on 11/24/18 11:59; Admin Dose 4 UNIT; Start 11/21/18 at 12:00 Miscellaneous Information 1 ea NOTE XX ; Start 11/21/18 at 12:00 Glucose (Glutose) 15 gm Q15M PRN PO DECREASED GLUCOSE; Start 11/21/18 at 12:00 Glucose (Glutose) 22.5 gm Q15M PRN PO DECREASED GLUCOSE; Start 11/21/18 at 12:00 Dextrose (D50w Syringe) 25 ml Q15M PRN IV DECREASED GLUCOSE; Start 11/21/18 at 12:00 Dextrose (D50w Syringe) 50 ml Q15M PRN IV DECREASED GLUCOSE; Start 11/21/18 at 12:00 Glucagon (Glucagen) 1 mg Q15M PRN IM DECREASED GLUCOSE; Start 11/21/18 at 12:00 Glucose (Glutose) 15 gm Q15M PRN BUCCAL DECREASED GLUCOSE; Start 11/21/18 at 12:00 Albuterol (Ventolin Hfa) 2 puff Q6 PRN INH SHORTNESS OF BREATH; Start 11/21/18 at 18:00 Aspirin (Aspirin) 81 mg DAILY PO Last administered on 11/24/18 08:16; Admin Dose 81 MG; Start 11/22/18 at 09:00 Ferrous Sulfate (Ferrous Sulfate (Ec)) 325 mg BID PO Last administered on 11/24/18 08:14; Admin Dose 325 MG; Start 11/21/18 at 21:00 Gabapentin (Neurontin) 300 mg TID PO Last administered on 11/24/18 12:00; Admin Dose 300 MG; Start 11/21/18 at 21:00 Isosorbide Mononitrate (Imdur) 30 mg DAILY PO Last administered on 11/24/18 08:16; Admin Dose 30 MG; Start 11/22/18 at 09:00 Thiamine HCl (Vitamin B1) 100 mg DAILY PO Last administered on 11/24/18 08:15; Admin Dose 100 MG; Start 11/22/18 at 09:00 Fluticasone/ Vilanterol (Breo Ellipta 200-25 Mcg Inh) 1 inh DAILY INH Last administered on 11/24/18 08:15; Admin Dose 1 INH; Start 11/22/18 at 09:00 Metoprolol Succinate (Toprol Xl) 50 mg BID PO Last administered on 11/24/18 08:16; Admin Dose 50 MG; Start 11/21/18 at 21:00 Linagliptin (Tradjenta) 5 mg DAILY PO Last administered on 11/24/18 08:16; Admin Dose 5 MG; Start 11/21/18 at 18:00 Montelukast Sodium (Singulair) 10 mg HS PO Last administered on 11/23/18 20:30; Admin Dose 10 MG; Start 11/21/18 at 21:00 Diagnostic Test (Pha) (Accu-Chek) 1 ea AC MEALS XX Last administered on 11/24/18 11:55; Admin Dose 1 EA; Start 11/22/18 at 07:30 Diagnostic Test (Pha) (Accu-Chek) 1 ea 2 HOURS AFTER MEALS XX Last administered on 11/24/18 10:21; Admin Dose 1 EA; Start 11/21/18 at 20:05 Tiotropium [place] (Spiriva) 1 inh DAILY INH Last administered on 11/24/18 08:16; Admin Dose 1 INH; Start 11/21/18 at 19:30 Phenazopyridine HCl (Pyridium) 100 mg BID PO Last administered on 11/24/18 08:15; Admin Dose 100 MG; Start 11/21/18 at 21:30 Polyethylene Glycol (Miralax) 17 gm DAILY PO Last administered on 11/24/18 08:14; Admin Dose 17 GM; Start 11/22/18 at 10:30 Nateglinide (Starlix) 120 mg AC MEALS PO Last administered on 11/24/18 11:55; Admin Dose 120 MG; Start 11/23/18 at 07:30 Ferric Sodium Gluconate Complex 125 mg/Sodium Chloride 110 ml @ 110 mls/hr DAILY@1300 IVPB Last administered on 11/24/18 12:00; Admin Dose 110 MLS/HR; Start 11/23/18 at 13:00; Stop 11/27/18 at 13:59 Doxazosin Mesylate (Cardura) 8 mg HS PO Last administered on 11/23/18 20:30; Admin Dose 8 MG; Start 11/23/18 at 21:00 Calcitriol (Rocaltrol) 0.25 mcg QAM PO Last administered on 11/24/18 08:14; Admin Dose 0.25 MCG; Start 11/24/18 at 09:00 Magnesium Hydroxide (Milk Of Mag) 30 ml Q12 PRN PO CONSTIPATION Last administered on 11/23/18 23:23; Admin Dose 30 ML; Start 11/23/18 at 22:30 Allopurinol (Zyloprim) 100 mg BID PO Last administered on 11/24/18at 08:16; Admin Dose 100 MG; Start 11/24/18 at 09:00 Insulin Glargine (Lantus) 30 units DAILY@2000 SC ; Start 11/24/18 at 20:00 Pioglitazone HCl (Actos) 30 mg DAILY PO ; Start 11/25/18 at 09:00 Famotidine (Pepcid) 20 mg DAILY PO ; Start 11/25/18 at 09:00 Finasteride (Proscar) 5 mg DAILY PO ; Start 11/24/18 at 13:30 BON GUERRERO MD Nov 24, 2018 14:32
[2018-11-24] MEDS: FINASTERIDE 5 MG TAB PO SCH (15:20)
[2018-11-24] MEDS: DOXAZOSIN 4 MG TAB PO SCH (20:37)
[2018-11-24] MEDS: MONTELUKAST 10 MG TAB PO SCH (20:37)
[2018-11-24] MEDS: INSULIN GLARGINE [LANTus] (100 UNITS/ML) SYG SC SCH (20:38)
[2018-11-24 21:04] VITALS: BP 161/79; PULSE 71; RESP 16
[2018-11-24 21:55] VITALS: BP 144/74
[2018-11-25 03:02] VITALS: BP 130/59; PULSE 60; RESP 16
[2018-11-25] MEDS: ACCU-CHEK XX SCH ×6 (07:30→20:27)
[2018-11-25 08:00] VITALS: BP 108/66; PULSE 61; RESP 18
[2018-11-25] MEDS: INSULIN ASPART [NOVOLOG] 3 ML PEN SC SCH ×4 (08:00→20:19)
[2018-11-25] MEDS: POLYETHYLENE GLYCOL 17 GM PACKET PO SCH (08:10)
[2018-11-25] MEDS: PHENAZOPYRIDINE 100 MG TAB PO SCH ×2 (08:10→20:14)
[2018-11-25] MEDS: GABAPENTIN 300 MG CAP PO SCH ×3 (08:10→20:14)
[2018-11-25] MEDS: FINASTERIDE 5 MG TAB PO SCH (08:12)
[2018-11-25] MEDS: NATEGLINIDE 120 MG TAB PO SCH ×3 (08:12→17:08)
[2018-11-25] MEDS: ALLOPURINOL 100 MG TAB PO SCH ×2 (08:12→20:16)
[2018-11-25] MEDS: PIOGLITAZONE 15 MG TAB PO SCH (08:12)
[2018-11-25] MEDS: LINAGLIPTIN 5 MG TABLET PO SCH (08:12)
[2018-11-25] MEDS: CALCITRIOL 0.25 MCG CAP PO SCH (08:13)
[2018-11-25] MEDS: FAMOTIDINE 20 MG TAB PO SCH (08:13)
[2018-11-25] MEDS: FERROUS SULFATE (EC) 325 MG TAB PO SCH ×2 (08:13→20:14)
[2018-11-25] MEDS: TIOTROPIUM 18 MCG CAPSULE INHA DEV INH SCH (08:13)
[2018-11-25] MEDS: THIAMINE 100 MG TAB PO SCH (08:14)
[2018-11-25] MEDS: FLUTICASONE/VILANTEROL 200-25 INH DEVICE INH SCH (08:14)
[2018-11-25] MEDS: ASPIRIN 81 MG TAB PO SCH (08:14)
[2018-11-25] MEDS: HEPARIN 5,000 UNIT/1 ML VIAL SC SCH ×2 (08:18→20:18)
[2018-11-25] MEDS: METOPROLOL (XL) 50 MG TAB PO SCH ×2 (08:20→20:17)
[2018-11-25] MEDS: ISOSORBIDE MONONITRATE(SR)30 MG TAB PO SCH (08:20)
--- NOTE | 2018-11-25 08:20 | CONS ---
Assessment/Plan Assessment/Plan Assessment/Plan (Daily) 1. acute kidney injury on CKD IV 2. 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 h/o CHF 6. H/o DM II Plan: BUN/Cr improved to 74/3.14 Continue Cardura 4 mg pO QHS, Metoprolol 50mg BID, Nifedipine XL and Hydralazine stopped yesterday due to low BP , IV hydralazine prn if BP continues to rise again then will add Hydralazine 25 mg pO TID Renal US showed The right kidney measures 13.5 cm. There is mild right hydronephrosis.The left kidney measures 15.5 cm., Bilateral Renal cysts ECHO showed EF 60%, normal LVSF, Unable to assess Diastolic function due to atrial fibrillation calcitriol 0.25 mcg pO Q am, Uric acid 9.4- on allopurinol 100mg pO BID will follow up Consultation Date/Type/Reason Admit Date/Time Nov 21, 2018 at 09:57 Initial Consult Date 11/21/18 Type of Consult NEPHROLOGY Requesting Provider: BRIANDA TYLER NP Date/Time of Note DATE: 11/25/18 TIME: 08:20 Exam/Review of Systems Exam Vitals Vital Signs Date Temp Pulse Resp B/P (MAP) Pulse Ox O2 O2 Flow FiO2 Time Delivery Rate 11/25/18 98.0 60 16 130/59 95 03:02 (82) 11/23/18 Nasal 2.0 08:10 Cannula Intake and Output 11/24/18 11/24/18 11/25/18 1515:00 23:00 07:00 IntakeIntake Total 960 ml 1170 ml OutputOutput Total 900 ml 600 ml BalanceBalance 60 ml 570 ml Exam Constitutional: alert Respiratory: clear to auscultation, no crackles, no wheezing Cardiovascular: regular rate and rhythm, nl pulses Gastrointestinal: soft, non-tender Musculoskeletal: nl extremities to inspection Extremities: normal pulses 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, nl mental status, nl speech, nl strength Results Result Diagram: 11/22/18 0704 11/25/18 0508 Results 24hrs Laboratory Tests Test 11/24/18 10:20 11/24/18 10:49 11/24/18 11:54 11/24/18 14:02 Bedside Glucose 225 H 286 H 354 H Sodium Level 139 Potassium Level 4.5 Chloride Level 99 Carbon Dioxide Level 29 Anion Gap 11 Blood Urea Nitrogen 75 H Creatinine 3.48 H Est Glomerular 18 L Filtrat Rate mL/min Glucose Level 259 H Calcium Level 9.0 Test 11/24/18 17:12 11/24/18 20:33 11/24/18 23:39 11/25/18 01:45 Bedside Glucose 187 198 173 154 Test 11/25/18 05:08 11/25/18 08:09 Sodium Level 141 Potassium Level 4.2 Chloride Level 100 Carbon Dioxide Level 31 Anion Gap 10 Blood Urea Nitrogen 74 H Creatinine 3.14 H Est Glomerular 20 L Filtrat Rate mL/min Glucose Level 128 # Calcium Level 9.5 Bedside Glucose 120 Medications Medication Current Medications Hydralazine HCl (Apresoline) 10 mg Q4H PRN IV ELEVATED BP Last administered on 11/21/18at 11:16; Admin Dose 10 MG; Start 11/21/18 at 11:00 IV Flush (NS 3 ml) 3 ml PER PROTOCOL IV ; Start 11/21/18 at 11:30 Ondansetron HCl (Zofran Inj) 4 mg Q6H PRN IV NAUSEA/VOMITING; Start 11/21/18 at 11:30 Acetaminophen (Tylenol Tab) 650 mg Q6H PRN PO .PAIN 1-3 OR TEMP Last administered on 11/22/18at 21:28; Admin Dose 650 MG; Start 11/21/18 at 11:30 Acetaminophen/ Hydrocodone Bitart ([place] (5/325)) 1 tab Q6H PRN PO .MOD PAIN 4- 6 Last administered on 11/23/18at 10:09; Admin Dose 1 TAB; Start 11/21/18 at 11:30 Morphine Sulfate (morphine) 2 mg Q4H PRN IV .SEVERE PAIN 7-10 Last administered on 11/21/18at 21:09; Admin Dose 2 MG; Start 11/21/18 at 11:30 Heparin Sodium (Porcine) (Heparin (5000 Units/1ml)) 5,000 unit Q12 SC Last administered on 11/24/18at 20:39; Admin Dose 5,000 UNIT; Start 11/21/18 at 21:00 Insulin Aspart (Novolog Insulin Pen) NOVOLOG *MILD* ALGORITHM WITH MEALS BEDTIME SC Last administered on 11/24/18at 20:41; Admin Dose 1 UNIT; Start 11/21/18 at 12:00 Miscellaneous Information 1 ea NOTE XX ; Start 11/21/18 at 12:00 Glucose (Glutose) 15 gm Q15M PRN PO DECREASED GLUCOSE; Start 11/21/18 at 12:00 Glucose (Glutose) 22.5 gm Q15M PRN PO DECREASED GLUCOSE; Start 11/21/18 at 12:00 Dextrose (D50w Syringe) 25 ml Q15M PRN IV DECREASED GLUCOSE; Start 11/21/18 at 12:00 Dextrose (D50w Syringe) 50 ml Q15M PRN IV DECREASED GLUCOSE; Start 11/21/18 at 12:00 Glucagon (Glucagen) 1 mg Q15M PRN IM DECREASED GLUCOSE; Start 11/21/18 at 12:00 Glucose (Glutose) 15 gm Q15M PRN BUCCAL DECREASED GLUCOSE; Start 11/21/18 at 12:00 Albuterol (Ventolin Hfa) 2 puff Q6 PRN INH SHORTNESS OF BREATH; Start 11/21/18 at 18:00 Aspirin (Aspirin) 81 mg DAILY PO Last administered on 11/24/18 08:16; Admin Dose 81 MG; Start 11/22/18 at 09:00 Ferrous Sulfate (Ferrous Sulfate (Ec)) 325 mg BID PO Last administered on 11/24/18 20:34; Admin Dose 325 MG; Start 11/21/18 at 21:00 Gabapentin (Neurontin) 300 mg TID PO Last administered on 11/24/18 20:34; Admin Dose 300 MG; Start 11/21/18 at 21:00 Isosorbide Mononitrate (Imdur) 30 mg DAILY PO Last administered on 11/24/18 08:16; Admin Dose 30 MG; Start 11/22/18 at 09:00 Thiamine HCl (Vitamin B1) 100 mg DAILY PO Last administered on 11/24/18 08:15; Admin Dose 100 MG; Start 11/22/18 at 09:00 Fluticasone/ Vilanterol (Breo Ellipta 200-25 Mcg Inh) 1 inh DAILY INH Last administered on 11/24/18at 08:15; Admin Dose 1 INH; Start 11/22/18 at 09:00 Metoprolol Succinate (Toprol Xl) 50 mg BID PO Last administered on 11/24/18 20:43; Admin Dose 50 MG; Start 11/21/18 at 21:00 Linagliptin (Tradjenta) 5 mg DAILY PO Last administered on 11/24/18 08:16; Admin Dose 5 MG; Start 11/21/18 at 18:00 Montelukast Sodium (Singulair) 10 mg HS PO Last administered on 11/24/18 20:37; Admin Dose 10 MG; Start 11/21/18 at 21:00 Diagnostic Test (Pha) (Accu-Chek) 1 ea AC MEALS XX Last administered on 11/24/18 17:27; Admin Dose 1 EA; Start 11/22/18 at 07:30 Diagnostic Test (Pha) (Accu-Chek) 1 ea 2 HOURS AFTER MEALS XX Last administered on 11/24/18 14:57; Admin Dose 1 EA; Start 11/21/18 at 20:05 Tiotropium [place] (Spiriva) 1 inh DAILY INH Last administered on 11/24/18 08:16; Admin Dose 1 INH; Start 11/21/18 at 19:30 Phenazopyridine HCl (Pyridium) 100 mg BID PO Last administered on 11/24/18 20:43; Admin Dose 100 MG; Start 11/21/18 at 21:30 Polyethylene Glycol (Miralax) 17 gm DAILY PO Last administered on 11/24/18 08:14; Admin Dose 17 GM; Start 11/22/18 at 10:30 Nateglinide (Starlix) 120 mg AC MEALS PO Last administered on 11/24/18 18:31; Admin Dose 120 MG; Start 11/23/18 at 07:30 Ferric Sodium Gluconate Complex 125 mg/Sodium Chloride 110 ml @ 110 mls/hr DAILY@1300 IVPB Last administered on 11/24/18 12:00; Admin Dose 110 MLS/HR; Start 11/23/18 at 13:00; Stop 11/27/18 at 13:59 Doxazosin Mesylate (Cardura) 8 mg HS PO Last administered on 11/24/18 20:37; Admin Dose 8 MG; Start 11/23/18 at 21:00 Calcitriol (Rocaltrol) 0.25 mcg QAM PO Last administered on 7/18/19at 08:14; Admin Dose 0.25 MCG; Start 11/24/18 at 09:00 Magnesium Hydroxide (Milk Of Mag) 30 ml Q12 PRN PO CONSTIPATION Last administered on 11/23/18 23:23; Admin Dose 30 ML; Start 11/23/18 at 22:30 Allopurinol (Zyloprim) 100 mg BID PO Last administered on 11/24/18 20:34; Admin Dose 100 MG; Start 11/24/18 at 09:00 Insulin Glargine (Lantus) 30 units DAILY@2000 SC Last administered on 11/24/18at 20:38; Admin Dose 30 UNITS; Start 11/24/18 at 20:00 Pioglitazone HCl (Actos) 30 mg DAILY PO ; Start 11/25/18 at 09:00 Famotidine (Pepcid) 20 mg DAILY PO ; Start 11/25/18 at 09:00 Finasteride (Proscar) 5 mg DAILY PO Last administered on 11/24/18at 15:20; Admin Dose 5 MG; Start 11/24/18 at 13:30 Lactated Ringer's 500 ml @ 500 mls/hr Q1H ONCE IV ; Start 11/25/18 at 08:30; Stop 11/25/18 at 09:29 Ergocalciferol (Drisdol Liquid (Ped)) 50,000 units ONCE ONCE PO ; Start 11/25/18 at 08:30; Stop 11/25/18 at 08:31; Status BON PICKERING MD Nov 25, 2018 08:20
--- NOTE | 2018-11-25 08:26 | CONS ---
Assessment/Plan Assessment/Plan Problems: (1) Diabetes mellitus type 2 in obese Status: Chronic Comment: His blood sugar control is now coming into line with the adjustments. I would continue this regimen as an outpatient as this is the regimen that he and his family have agreed that they would be cooperative with as an outpatient. (2) Prostatic hypertrophy Status: Chronic Comment: He has significant urinary retention. Continuation of the alpha blockade in the edition of the 5 alpha reductase inhibitor are strongly recommended. Please note that the alpha-james using also works for blood pressure and does not cause fluid retention as his original regimen had (3) Essential hypertension Status: Chronic Comment: Adequate control. At this time given the improvement in renal function I would advocate for the reintroduction of the GLORIA inhibitor versus angiotensin to receptor james and removal of hydralazine, and nitrates. Continue with cardioselective beta-blockade (4) Chronic kidney disease, stage 3 (moderate) Status: Chronic Comment: Stable. (5) Acute kidney injury Status: Acute Comment: This is now improving after fluid bolus. I believe this patient has a significant dehydrational component to this and would do well with another fluid bolus. (6) Vitamin D deficiency Status: Chronic Comment: Being replaced. (7) COPD (chronic obstructive pulmonary disease) Status: Chronic Comment: Very positive response to standard treatment. 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 Should be rechecked in roughly a week (9) Diabetic peripheral neuropathy associated with type 2 diabetes mellitus Status: Chronic Comment: Noted and stable (10) Left ventricular hypertrophy Status: Chronic Comment: Control of blood pressure and pulse (11) Diastolic dysfunction Status: Chronic Comment: Control of blood pressure and pulse CC: BON GUERRERO MD; BRIANDA TYLER NP ; Consultation Date/Type/Reason Admit Date/Time Nov 21, 2018 at 09:57 Initial Consult Date 11/21/18 Type of Consult Endocrinology Reason for Consultation Diabetes mellitus type 2 with inadequate control in a patient who declines multiple daily injections and but will permit once a day injection; chronic kidney disease aggravated by significant dehydration; hypertension; prostatic hypertrophy with significant postvoid residual Requesting Provider: REGIDOR,BRIANDA KISS MACHINE OPERATOR Date/Time of Note DATE: 11/25/18 TIME: 08:20 24 HR Interval Summary Free Text/Dictation Patient reports he is feeling much better today. His breathing is improved. Constitutional: no complaints Detailed Summary Respiratory: no complaints (Improved) Cardiovascular: no complaints Endocrine: no complaints Exam/Review of Systems Exam Vitals Vital Signs Date Temp Pulse Resp B/P (MAP) Pulse Ox O2 O2 Flow FiO2 Time Delivery Rate 11/25/18 98.0 60 16 130/59 95 03:02 (82) 11/23/18 Nasal 2.0 08:10 Cannula Intake and Output 11/24/18 11/24/18 11/25/18 1515:00 23:00 07:00 IntakeIntake Total 960 ml 1170 ml OutputOutput Total 900 ml 600 ml BalanceBalance 60 ml 570 ml Constitutional: alert, oriented Respiratory: clear to auscultation, normal air movement Cardiovascular: regular rate and rhythm, nl pulses Results Result Diagram: 11/22/18 0704 11/25/18 0508 Results 24hrs Laboratory Tests Test 11/24/18 10:20 11/24/18 10:49 11/24/18 11:54 11/24/18 14:02 Bedside Glucose 225 H 286 H 354 H Sodium Level 139 Potassium Level 4.5 Chloride Level 99 Carbon Dioxide Level 29 Anion Gap 11 Blood Urea Nitrogen 75 H Creatinine 3.48 H Est Glomerular 18 L Filtrat Rate mL/min Glucose Level 259 H Calcium Level 9.0 Test 11/24/18 17:12 11/24/18 20:33 11/24/18 23:39 11/25/18 01:45 Bedside Glucose 187 198 173 154 Test 11/25/18 05:08 11/25/18 08:09 Sodium Level 141 Potassium Level 4.2 Chloride Level 100 Carbon Dioxide Level 31 Anion Gap 10 Blood Urea Nitrogen 74 H Creatinine 3.14 H Est Glomerular 20 L Filtrat Rate mL/min Glucose Level 128 # Calcium Level 9.5 Bedside Glucose 120 Medications Medication Current Medications Hydralazine HCl (Apresoline) 10 mg Q4H PRN IV ELEVATED BP Last administered on 11/21/18at 11:16; Admin Dose 10 MG; Start 11/21/18 at 11:00 IV Flush (NS 3 ml) 3 ml PER PROTOCOL IV ; Start 11/21/18 at 11:30 Ondansetron HCl (Zofran Inj) 4 mg Q6H PRN IV NAUSEA/VOMITING; Start 11/21/18 at 11:30 Acetaminophen (Tylenol Tab) 650 mg Q6H PRN PO .PAIN 1-3 OR TEMP Last administered on 11/22/18at 21:28; Admin Dose 650 MG; Start 11/21/18 at 11:30 Acetaminophen/ Hydrocodone Bitart ([place] (5/325)) 1 tab Q6H PRN PO .MOD PAIN 4- 6 Last administered on 11/23/18at 10:09; Admin Dose 1 TAB; Start 11/21/18 at 11:30 Morphine Sulfate (morphine) 2 mg Q4H PRN IV .SEVERE PAIN 7-10 Last administered on 11/21/18at 21:09; Admin Dose 2 MG; Start 11/21/18 at 11:30 Heparin Sodium (Porcine) (Heparin (5000 Units/1ml)) 5,000 unit Q12 SC Last administered on 11/24/18at 20:39; Admin Dose 5,000 UNIT; Start 11/21/18 at 21:00 Insulin Aspart (Novolog Insulin Pen) NOVOLOG *MILD* ALGORITHM WITH MEALS BEDTIME SC Last administered on 11/24/18at 20:41; Admin Dose 1 UNIT; Start 11/21/18 at 12:00 Miscellaneous Information 1 ea NOTE XX ; Start 11/21/18 at 12:00 Glucose (Glutose) 15 gm Q15M PRN PO DECREASED GLUCOSE; Start 11/21/18 at 12:00 Glucose (Glutose) 22.5 gm Q15M PRN PO DECREASED GLUCOSE; Start 11/21/18 at 1 2:00 Dextrose (D50w Syringe) 25 ml Q15M PRN IV DECREASED GLUCOSE; Start 11/21/18 at 12:00 Dextrose (D50w Syringe) 50 ml Q15M PRN IV DECREASED GLUCOSE; Start 11/21/18 at 12:00 Glucagon (Glucagen) 1 mg Q15M PRN IM DECREASED GLUCOSE; Start 11/21/18 at 12:00 Glucose (Glutose) 15 gm Q15M PRN BUCCAL DECREASED GLUCOSE; Start 11/21/18 at 12:00 Albuterol (Ventolin Hfa) 2 puff Q6 PRN INH SHORTNESS OF BREATH; Start 11/21/18 at 18:00 Aspirin (Aspirin) 81 mg DAILY PO Last administered on 11/24/18 08:16; Admin Dose 81 MG; Start 11/22/18 at 09:00 Ferrous Sulfate (Ferrous Sulfate (Ec)) 325 mg BID PO Last administered on 11/24/18 20:34; Admin Dose 325 MG; Start 11/21/18 at 21:00 Gabapentin (Neurontin) 300 mg TID PO Last administered on 11/24/18 20:34; Admin Dose 300 MG; Start 11/21/18 at 21:00 Isosorbide Mononitrate (Imdur) 30 mg DAILY PO Last administered on 11/24/18 08:16; Admin Dose 30 MG; Start 11/22/18 at 09:00 Thiamine HCl (Vitamin B1) 100 mg DAILY PO Last administered on 11/24/18 08:15; Admin Dose 100 MG; Start 11/22/18 at 09:00 Fluticasone/ Vilanterol (Breo Ellipta 200-25 Mcg Inh) 1 inh DAILY INH Last administered on 11/24/18 08:15; Admin Dose 1 INH; Start 11/22/18 at 09:00 Metoprolol Succinate (Toprol Xl) 50 mg BID PO Last administered on 11/24/18 20:43; Admin Dose 50 MG; Start 11/21/18 at 21:00 Linagliptin (Tradjenta) 5 mg DAILY PO Last administered on 11/24/18 08:16; Admin Dose 5 MG; Start 11/21/18 at 18:00 Montelukast Sodium (Singulair) 10 mg HS PO Last administered on 11/24/18 20:37; Admin Dose 10 MG; Start 11/21/18 at 21:00 Diagnostic Test (Pha) (Accu-Chek) 1 ea AC MEALS XX Last administered on 11/24/18 17:27; Admin Dose 1 EA; Start 11/22/18 at 07:30 Diagnostic Test (Pha) (Accu-Chek) 1 ea 2 HOURS AFTER MEALS XX Last administered on 11/24/18 14:57; Admin Dose 1 EA; Start 11/21/18 at 20:05 Tiotropium [place] (Spiriva) 1 inh DAILY INH Last administered on 11/24/18 08:16; Admin Dose 1 INH; Start 11/21/18 at 19:30 Phenazopyridine HCl (Pyridium) 100 mg BID PO Last administered on 11/24/18 20:43; Admin Dose 100 MG; Start 11/21/18 at 21:30 Polyethylene Glycol (Miralax) 17 gm DAILY PO Last administered on 11/24/18 08:14; Admin Dose 17 GM; Start 11/22/18 at 10:30 Nateglinide (Starlix) 120 mg AC MEALS PO Last administered on 11/24/18 18:31; Admin Dose 120 MG; Start 11/23/18 at 07:30 Ferric Sodium Gluconate Complex 125 mg/Sodium Chloride 110 ml @ 110 mls/hr DAILY@1300 IVPB Last administered on 11/24/18 12:00; Admin Dose 110 MLS/HR; Start 11/23/18 at 13:00; Stop 11/27/18 at 13:59 Doxazosin Mesylate (Cardura) 8 mg HS PO Last administered on 11/24/18at 20:37; Admin Dose 8 MG; Start 11/23/18 at 21:00 Calcitriol (Rocaltrol) 0.25 mcg QAM PO Last administered on 11/24/18 08:14; Admin Dose 0.25 MCG; Start 11/24/18 at 09:00 Magnesium Hydroxide (Milk Of Mag) 30 ml Q12 PRN PO CONSTIPATION Last administered on 11/23/18 23:23; Admin Dose 30 ML; Start 11/23/18 at 22:30 Allopurinol (Zyloprim) 100 mg BID PO Last administered on 11/24/18at 20:34; Admin Dose 100 MG; Start 11/24/18 at 09:00 Insulin Glargine (Lantus) 30 units DAILY@2000 SC Last administered on 11/24/18at 20:38; Admin Dose 30 UNITS; Start 11/24/18 at 20:00 Pioglitazone HCl (Actos) 30 mg DAILY PO ; Start 11/25/18 at 09:00 Famotidine (Pepcid) 20 mg DAILY PO ; Start 11/25/18 at 09:00 Finasteride (Proscar) 5 mg DAILY PO Last administered on 11/24/18at 15:20; Admin Dose 5 MG; Start 11/24/18 at 13:30 Lactated Ringer's 500 ml @ 500 mls/hr Q1H ONCE IV ; Start 11/25/18 at 08:30; Stop 11/25/18 at 09:29 Ergocalciferol (Drisdol Liquid (Ped)) 50,000 units ONCE ONCE PO ; Start 11/25/18 at 08:30; Stop 11/25/18 at 08:31; Status UNRENÉE GRAJEDA MD Nov 25, 2018 08:26
[2018-11-25] MEDS ORDERED: LACTATED RINGER'S 500 ML IV ONE (08:30)
[2018-11-25] MEDS ORDERED: ERGOCALCIFEROL 50,000 UNIT CAP PO ONE (10:00)
[2018-11-25] MEDS: SOD FERRIC GLUC COMPLX 125 MG in SOD CHLORIDE 0.9% 100 ML IVPB SCH (12:09)
--- NOTE | 2018-11-25 13:31 | PN ---
Date/Time of Note Date/Time of Note DATE: 11/25/18 TIME: 13:29 Assessment/Plan VTE Prophylaxis Risk score (from Ns)>0 risk: 4 SCD applied (from Ns): Yes Pharmacological prophylaxis: heparin Lines/Catheters IV Catheter Type (from Nrsg): Saline Lock Urinary Cath still in place: Yes Reason Cath still needed: other (indicate) (monitor I&O) Assessment/Plan Hospital Course assessment and plan 1. Diabetes. - A1c.: 13.3 - Electric Tripper Machine Operator following - continue antidiabetic regimen 2. Hypertension. - continue antihypertensives 3. Acute renal insufficiency. - continue IVF - f/u parts person recommendations. - correct electrolytes as needed - renal function slowly improving 4. BPH. - Continue on Flomax. 5. Diabetic neuropathy. - On Neurontin. 6. History of CHF. - Continue beta-james and ASA. - O2 PRN 7. Obesity. -Weight reduction was advised. Dispo/Plan: blood glucose is better. renal function is improving. f/u nephrolo gist. d/c planning Discussed POC with Dr. Barlow Result Diagram: 11/22/18 0704 11/25/18 0508 Results 24hrs Laboratory Tests Test 11/24/18 14:02 11/24/18 17:12 11/24/18 20:33 11/24/18 23:39 Bedside Glucose 354 H 187 198 173 Test 11/25/18 01:45 11/25/18 05:08 11/25/18 08:09 11/25/18 10:17 Bedside Glucose 154 120 193 Sodium Level 141 Potassium Level 4.2 Chloride Level 100 Carbon Dioxide Level 31 Anion Gap 10 Blood Urea Nitrogen 74 H Creatinine 3.14 H Est Glomerular 20 L Filtrat Rate mL/min Glucose Level 128 # Calcium Level 9.5 Test 11/25/18 11:58 Bedside Glucose 210 Subjective 24 Hr Interval Summary Free Text/Dictation comfortable at present. no s/s of distress Exam/Review of Systems Exam Vitals Vital Signs Date Temp Pulse Resp B/P (MAP) Pulse Ox O2 O2 Flow FiO2 Time Delivery Rate 11/25/18 98.8 61 18 108/66 96 08:00 (80) 11/23/18 Nasal 2.0 08:10 Cannula Intake and Output 11/24/18 11/24/18 11/25/18 1515:00 23:00 07:00 IntakeIntake Total 960 ml 1170 ml OutputOutput Total 900 ml 600 ml BalanceBalance 60 ml 570 ml Exam Constitutional: alert, oriented Psych: nl mood/affect Head: normocephalic Respiratory: clear to auscultation Cardiovascular: other (Regular rate) Neurological: nl mental status, nl speech Skin: nl turgor Results Results 24hrs Laboratory Tests Test 11/24/18 14:02 11/24/18 17:12 11/24/18 20:33 11/24/18 23:39 Bedside Glucose 354 H 187 198 173 Test 11/25/18 01:45 11/25/18 05:08 11/25/18 08:09 11/25/18 10:17 Bedside Glucose 154 120 193 Sodium Level 141 Potassium Level 4.2 Chloride Level 100 Carbon Dioxide Level 31 Anion Gap 10 Blood Urea Nitrogen 74 H Creatinine 3.14 H Est Glomerular 20 L Filtrat Rate mL/min Glucose Level 128 # Calcium Level 9.5 Test 11/25/18 11:58 Bedside Glucose 210 Medications Medication Current Medications Hydralazine HCl (Apresoline) 10 mg Q4H PRN IV ELEVATED BP Last administered on 11/21/18at 11:16; Admin Dose 10 MG; Start 11/21/18 at 11:00 IV Flush (NS 3 ml) 3 ml PER PROTOCOL IV ; Start 11/21/18 at 11:30 Ondansetron HCl (Zofran Inj) 4 mg Q6H PRN IV NAUSEA/VOMITING; Start 11/21/18 at 11:30 Acetaminophen (Tylenol Tab) 650 mg Q6H PRN PO .PAIN 1-3 OR TEMP Last administered on 11/22/18at 21:28; Admin Dose 650 MG; Start 11/21/18 at 11:30 Acetaminophen/ Hydrocodone Bitart ([place] (5/325)) 1 tab Q6H PRN PO .MOD PAIN 4- 6 Last administered on 11/23/18at 10:09; Admin Dose 1 TAB; Start 11/21/18 at 11 :30 Morphine Sulfate (morphine) 2 mg Q4H PRN IV .SEVERE PAIN 7-10 Last administered on 11/21/18at 21:09; Admin Dose 2 MG; Start 11/21/18 at 11:30 Heparin Sodium (Porcine) (Heparin (5000 Units/1ml)) 5,000 unit Q12 SC Last administered on 11/25/18 08:18; Admin Dose 5,000 UNIT; Start 11/21/18 at 21:00 Insulin Aspart (Novolog Insulin Pen) NOVOLOG *MILD* ALGORITHM WITH MEALS BEDTIME SC Last administered on 11/25/18at 12:10; Admin Dose 2 UNIT; Start 11/21/18 at 12:00 Miscellaneous Information 1 ea NOTE XX ; Start 11/21/18 at 12:00 Glucose (Glutose) 15 gm Q15M PRN PO DECREASED GLUCOSE; Start 11/21/18 at 12:00 Glucose (Glutose) 22.5 gm Q15M PRN PO DECREASED GLUCOSE; Start 11/21/18 at 12:00 Dextrose (D50w Syringe) 25 ml Q15M PRN IV DECREASED GLUCOSE; Start 11/21/18 at 12:00 Dextrose (D50w Syringe) 50 ml Q15M PRN IV DECREASED GLUCOSE; Start 11/21/18 at 12:00 Glucagon (Glucagen) 1 mg Q15M PRN IM DECREASED GLUCOSE; Start 11/21/18 at 12:00 Glucose (Glutose) 15 gm Q15M PRN BUCCAL DECREASED GLUCOSE; Start 11/21/18 at 12:00 Albuterol (Ventolin Hfa) 2 puff Q6 PRN INH SHORTNESS OF BREATH; Start 11/21/18 at 18:00 Aspirin (Aspirin) 81 mg DAILY PO Last administered on 11/25/18at 08:14; Admin Dose 81 MG; Start 11/22/18 at 09:00 Ferrous Sulfate (Ferrous Sulfate (Ec)) 325 mg BID PO Last administered on 11/25/18 08:13; Admin Dose 325 MG; Start 11/21/18 at 21:00 Gabapentin (Neurontin) 300 mg TID PO Last administered on 11/25/18 12:11; Admin Dose 300 MG; Start 11/21/18 at 21:00 Isosorbide Mononitrate (Imdur) 30 mg DAILY PO Last administered on 11/25/18 08:20; Admin Dose 30 MG; Start 11/22/18 at 09:00 Thiamine HCl (Vitamin B1) 100 mg DAILY PO Last administered on 11/25/18at 08:14; Admin Dose 100 MG; Start 11/22/18 at 09:00 Fluticasone/ Vilanterol (Breo Ellipta 200-25 Mcg Inh) 1 inh DAILY INH Last administered on 11/25/18 08:14; Admin Dose 1 INH; Start 11/22/18 at 09:00 Metoprolol Succinate (Toprol Xl) 50 mg BID PO Last administered on 11/25/18 08:20; Admin Dose 50 MG; Start 11/21/18 at 21:00 Linagliptin (Tradjenta) 5 mg DAILY PO Last administered on 11/25/18 08:12; Adm in Dose 5 MG; Start 11/21/18 at 18:00 Montelukast Sodium (Singulair) 10 mg HS PO Last administered on 11/24/18 20:37; Admin Dose 10 MG; Start 11/21/18 at 21:00 Diagnostic Test (Pha) (Accu-Chek) 1 ea AC MEALS XX Last administered on 11/24/18 17:27; Admin Dose 1 EA; Start 11/22/18 at 07:30 Diagnostic Test (Pha) (Accu-Chek) 1 ea 2 HOURS AFTER MEALS XX Last administered on 11/24/18 14:57; Admin Dose 1 EA; Start 11/21/18 at 20:05 Tiotropium [place] (Spiriva) 1 inh DAILY INH Last administered on 11/25/18 08:13; Admin Dose 1 INH; Start 11/21/18 at 19:30 Phenazopyridine HCl (Pyridium) 100 mg BID PO Last administered on 11/25/18 08:10; Admin Dose 100 MG; Start 11/21/18 at 21:30 Polyethylene Glycol (Miralax) 17 gm DAILY PO Last administered on 11/25/18 08:10; Admin Dose 17 GM; Start 11/22/18 at 10:30 Nateglinide (Starlix) 120 mg AC MEALS PO Last administered on 11/25/18 12:02; Admin Dose 120 MG; Start 11/23/18 at 07:30 Ferric Sodium Gluconate Complex 125 mg/Sodium Chloride 110 ml @ 110 mls/hr DAILY@1300 IVPB Last administered on 11/25/18 12:09; Admin Dose 110 MLS/HR; Start 11/23/18 at 13:00; Stop 11/27/18 at 13:59 Doxazosin Mesylate (Cardura) 8 mg HS PO Last administered on 11/24/18 20:37; Admin Dose 8 MG; Start 11/23/18 at 21:00 Calcitriol (Rocaltrol) 0.25 mcg QAM PO Last administered on 11/25/18 08:13; Admin Dose 0.25 MCG; Start 11/24/18 at 09:00 Magnesium Hydroxide (Milk Of Mag) 30 ml Q12 PRN PO CONSTIPATION Last administered on 11/23/18 23:23; Admin Dose 30 ML; Start 11/23/18 at 22:30 Allopurinol (Zyloprim) 100 mg BID PO Last administered on 11/25/18 08:12; Admin Dose 100 MG; Start 11/24/18 at 09:00 Insulin Glargine (Lantus) 30 units DAILY@2000 SC Last administered on 11/24/18 20:38; Admin Dose 30 UNITS; Start 11/24/18 at 20:00 Pioglitazone HCl (Actos) 30 mg DAILY PO Last administered on 11/25/18 08:12; Admin Dose 30 MG; Start 11/25/18 at 09:00 Famotidine (Pepcid) 20 mg DAILY PO Last administered on 11/25/18 08:13; Admin Dose 20 MG; Start 11/25/18 at 09:00 Finasteride (Proscar) 5 mg DAILY PO Last administered on 11/25/18 08:12; Admin Dose 5 MG; Start 11/24/18 at 13:30 BRIANDA TYLER NP Nov 25, 2018 13:31
[2018-11-25 14:00] VITALS: BP 148/76; PULSE 84; RESP 18
[2018-11-25 20:00] VITALS: BP 169/76; PULSE 72; RESP 17
[2018-11-25] MEDS: MONTELUKAST 10 MG TAB PO SCH (20:16)
[2018-11-25] MEDS: DOXAZOSIN 4 MG TAB PO SCH (20:16)
[2018-11-25] MEDS: INSULIN GLARGINE [LANTus] (100 UNITS/ML) SYG SC SCH (20:18)
[2018-11-25] MEDS: MAGNESIUM HYDROXIDE 30ML CUP PO PRN (23:13)
[2018-11-26 02:00] VITALS: BP 137/61; PULSE 74; RESP 18
[2018-11-26] MEDS: ACCU-CHEK XX SCH ×6 (07:30→20:29)
[2018-11-26] MEDS: FAMOTIDINE 20 MG TAB PO SCH (08:13)
[2018-11-26] MEDS: THIAMINE 100 MG TAB PO SCH (08:13)
[2018-11-26] MEDS: LINAGLIPTIN 5 MG TABLET PO SCH (08:13)
[2018-11-26] MEDS: NATEGLINIDE 120 MG TAB PO SCH ×3 (08:13→17:07)
[2018-11-26] MEDS: METOPROLOL (XL) 50 MG TAB PO SCH ×2 (08:14→20:18)
[2018-11-26] MEDS: FINASTERIDE 5 MG TAB PO SCH (08:14)
[2018-11-26] MEDS: PHENAZOPYRIDINE 100 MG TAB PO SCH ×2 (08:14→20:19)
[2018-11-26] MEDS: PIOGLITAZONE 15 MG TAB PO SCH (08:14)
[2018-11-26] MEDS: ASPIRIN 81 MG TAB PO SCH (08:15)
[2018-11-26] MEDS: FERROUS SULFATE (EC) 325 MG TAB PO SCH ×2 (08:15→20:18)
[2018-11-26] MEDS: TIOTROPIUM 18 MCG CAPSULE INHA DEV INH SCH (08:15)
[2018-11-26] MEDS: CALCITRIOL 0.25 MCG CAP PO SCH (08:15)
[2018-11-26] MEDS: ALLOPURINOL 100 MG TAB PO SCH (08:15)
[2018-11-26] MEDS: ISOSORBIDE MONONITRATE(SR)30 MG TAB PO SCH (08:16)
[2018-11-26] MEDS: GABAPENTIN 300 MG CAP PO SCH ×3 (08:16→20:19)
[2018-11-26] MEDS: POLYETHYLENE GLYCOL 17 GM PACKET PO SCH (08:16)
[2018-11-26] MEDS: INSULIN ASPART [NOVOLOG] 3 ML PEN SC SCH ×4 (08:17→20:23)
[2018-11-26] MEDS: HEPARIN 5,000 UNIT/1 ML VIAL SC SCH ×2 (08:17→20:22)
[2018-11-26] MEDS: FLUTICASONE/VILANTEROL 200-25 INH DEVICE INH SCH (08:19)
[2018-11-26 08:20] VITALS: BP 177/74; PULSE 65; RESP 16
--- NOTE | 2018-11-26 08:48 | CONS ---
Assessment/Plan Assessment/Plan Assessment/Plan (Daily) 1. acute kidney injury on CKD IV 2. 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 h/o CHF 6. H/o DM II Plan: BUN/Cr improved to 72/2.45 Continue Cardura 4 mg pO QHS, Metoprolol 50mg BID, Nifedipine XL and Hydralazine stopped yesterday due to low BP , IV hydralazine prn if BP continues to rise again then will add Hydralazine 25 mg pO TID Renal US showed The right kidney measures 13.5 cm. There is mild right hydronephrosis.The left kidney measures 15.5 cm., Bilateral Renal cysts ECHO showed EF 60%, normal LVSF, Unable to assess Diastolic function due to atrial fibrillation calcitriol 0.25 mcg pO Q am, Uric acid 9.4- on allopurinol 100mg pO BID will follow up Consultation Date/Type/Reason Admit Date/Time Nov 21, 2018 at 09:57 Initial Consult Date 11/21/18 Type of Consult NEPHROLOGY Requesting Provider: BRIANDA TYLER NP Date/Time of Note DATE: 11/26/18 TIME: 08:48 Exam/Review of Systems Exam Vitals Vital Signs Date Temp Pulse Resp B/P (MAP) Pulse Ox O2 O2 Flow FiO2 Time Delivery Rate 11/26/18 98.2 65 16 177/74 94 08:20 (108) 11/26/18 Room Air 02:00 11/23/18 2.0 08:10 Intake and Output 11/25/18 11/25/18 11/26/18 1515:00 23:00 07:00 IntakeIntake Total 1460 ml 450 ml 900 ml OutputOutput Total 1600 ml 950 ml 1400 ml BalanceBalance -140 ml -500 ml -500 ml Results Result Diagram: 11/22/18 0704 11/26/18 0442 Results 24hrs Laboratory Tests Test 11/25/18 10:17 11/25/18 11:58 11/25/18 13:50 11/25/18 17:03 Bedside Glucose 193 210 272 H 216 Test 11/25/18 20:13 11/26/18 02:12 11/26/18 04:42 11/26/18 08:09 Bedside Glucose 246 H 231 H 225 H Sodium Level 140 Potassium Level 4.1 Chloride Level 99 Carbon Dioxide Level 32 H Anion Gap 9 Blood Urea Nitrogen 72 H Creatinine 2.45 H Est Glomerular 27 L Filtrat Rate mL/min Glucose Level 255 #H Calcium Level 9.1 Medications Medication Current Medications Hydralazine HCl (Apresoline) 10 mg Q4H PRN IV ELEVATED BP Last administered on 11/21/18 11:16; Admin Dose 10 MG; Start 11/21/18 at 11:00 IV Flush (NS 3 ml) 3 ml PER PROTOCOL IV ; Start 11/21/18 at 11:30 Ondansetron HCl (Zofran Inj) 4 mg Q6H PRN IV NAUSEA/VOMITING; Start 11/21/18 at 11:30 Acetaminophen (Tylenol Tab) 650 mg Q6H PRN PO .PAIN 1-3 OR TEMP Last adm inistered on 11/22/18at 21:28; Admin Dose 650 MG; Start 11/21/18 at 11:30 Acetaminophen/ Hydrocodone Bitart ([place] (5/325)) 1 tab Q6H PRN PO .MOD PAIN 4- 6 Last administered on 11/23/18 10:09; Admin Dose 1 TAB; Start 11/21/18 at 11:30 Morphine Sulfate (morphine) 2 mg Q4H PRN IV .SEVERE PAIN 7-10 Last administered on 11/21/18at 21:09; Admin Dose 2 MG; Start 11/21/18 at 11:30 Heparin Sodium (Porcine) (Heparin (5000 Units/1ml)) 5,000 unit Q12 SC Last administered on 11/26/18at 08:17; Admin Dose 5,000 UNIT; Start 11/21/18 at 21:00 Insulin Aspart (Novolog Insulin Pen) NOVOLOG *MILD* ALGORITHM WITH MEALS BEDTIME SC Last administered on 11/26/18 08:17; Admin Dose 3 UNIT; Start 11/21/18 at 12:00 Miscellaneous Information 1 ea NOTE XX ; Start 11/21/18 at 12:00 Glucose (Glutose) 15 gm Q15M PRN PO DECREASED GLUCOSE; Start 11/21/18 at 12:00 Glucose (Glutose) 22.5 gm Q15M PRN PO DECREASED GLUCOSE; Start 11/21/18 at 12:00 Dextrose (D50w Syringe) 25 ml Q15M PRN IV DECREASED GLUCOSE; Start 11/21/18 at 12:00 Dextrose (D50w Syringe) 50 ml Q15M PRN IV DECREASED GLUCOSE; Start 11/21/18 at 12:00 Glucagon (Glucagen) 1 mg Q15M PRN IM DECREASED GLUCOSE; Start 11/21/18 at 12:00 Glucose (Glutose) 15 gm Q15M PRN BUCCAL DECREASED GLUCOSE; Start 11/21/18 at 12:00 Albuterol (Ventolin Hfa) 2 puff Q6 PRN INH SHORTNESS OF BREATH; Start 11/21/18 at 18:00 Aspirin (Aspirin) 81 mg DAILY PO Last administered on 11/26/18 08:15; Admin Dose 81 MG; Start 11/22/18 at 09:00 Ferrous Sulfate (Ferrous Sulfate (Ec)) 325 mg BID PO Last administered on 11/26/18 08:15; Admin Dose 325 MG; Start 11/21/18 at 21:00 Gabapentin (Neurontin) 300 mg TID PO Last administered on 11/26/18 08:16; Admin Dose 300 MG; Start 11/21/18 at 21:00 Isosorbide Mononitrate (Imdur) 30 mg DAILY PO Last administered on 11/26/18 08:16; Admin Dose 30 MG; Start 11/22/18 at 09:00 Thiamine HCl (Vitamin B1) 100 mg DAILY PO Last administered on 11/26/18 08:13; Admin Dose 100 MG; Start 11/22/18 at 09:00 Fluticasone/ Vilanterol (Breo Ellipta 200-25 Mcg Inh) 1 inh DAILY INH Last administered on 11/26/18 08:19; Admin Dose 1 INH; Start 11/22/18 at 09:00 Metoprolol Succinate (Toprol Xl) 50 mg BID PO Last administered on 11/26/18 08:14; Admin Dose 50 MG; Start 11/21/18 at 21:00 Linagliptin (Tradjenta) 5 mg DAILY PO Last administered on 11/26/18 08:13; Admin Dose 5 MG; Start 11/21/18 at 18:00 Montelukast Sodium (Singulair) 10 mg HS PO Last administered on 11/25/18 20:16; Admin Dose 10 MG; Start 11/21/18 at 21:00 Diagnostic Test (Pha) (Accu-Chek) 1 ea AC MEALS XX Last administered on 11/24/18 17:27; Admin Dose 1 EA; Start 11/22/18 at 07:30 Diagnostic Test (Pha) (Accu-Chek) 1 ea 2 HOURS AFTER MEALS XX Last admini stered on 11/25/18 20:27; Admin Dose 1 EA; Start 11/21/18 at 20:05 Tiotropium [place] (Spiriva) 1 inh DAILY INH Last administered on 11/26/18 08:15; Admin Dose 1 INH; Start 11/21/18 at 19:30 Phenazopyridine HCl (Pyridium) 100 mg BID PO Last administered on 11/26/18 08:14; Admin Dose 100 MG; Start 11/21/18 at 21:30 Polyethylene Glycol (Miralax) 17 gm DAILY PO Last administered on 11/26/18 08 :16; Admin Dose 17 GM; Start 11/22/18 at 10:30 Nateglinide (Starlix) 120 mg AC MEALS PO Last administered on 11/26/18 08:13; Admin Dose 120 MG; Start 11/23/18 at 07:30 Ferric Sodium Gluconate Complex 125 mg/Sodium Chloride 110 ml @ 110 mls/hr DAILY@1300 IVPB Last administered on 11/25/18 12:09; Admin Dose 110 MLS/HR; Start 11/23/18 at 13:00; Stop 11/27/18 at 13:59 Doxazosin Mesylate (Cardura) 8 mg HS PO Last administered on 11/25/18 20:16; Admin Dose 8 MG; Start 11/23/18 at 21:00 Calcitriol (Rocaltrol) 0.25 mcg QAM PO Last administered on 11/26/18 08:15; Admin Dose 0.25 MCG; Start 11/24/18 at 09:00 Magnesium Hydroxide (Milk Of Mag) 30 ml Q12 PRN PO CONSTIPATION Last administered on 11/25/18 23:13; Admin Dose 30 ML; Start 11/23/18 at 22:30 Allopurinol (Zyloprim) 100 mg BID PO Last administered on 11/26/18 08:15; Admin Dose 100 MG; Start 11/24/18 at 09:00 Insulin Glargine (Lantus) 30 units DAILY@2000 SC Last administered on 11/25/18 20:18; Admin Dose 30 UNITS; Start 11/24/18 at 20:00 Pioglitazone HCl (Actos) 30 mg DAILY PO Last administered on 11/26/18 08:14; Admin Dose 30 MG; Start 11/25/18 at 09:00 Famotidine (Pepcid) 20 mg DAILY PO Last administered on 11/26/18 08:13; Admin Dose 20 MG; Start 11/25/18 at 09:00 Finasteride (Proscar) 5 mg DAILY PO Last administered on 11/26/18 08:14; Admin Dose 5 MG; Start 11/24/18 at 13:30 BON GUERRERO MD Nov 26, 2018 08:48
[2018-11-26 10:45] VITALS: BP 132/63; PULSE 65
--- NOTE | 2018-11-26 12:05 | PN ---
Date/Time of Note Date/Time of Note DATE: 11/26/18 TIME: 12:03 Assessment/Plan VTE Prophylaxis Risk score (from Nsg)>0 risk: 4 SCD applied (from Ns): Yes Pharmacological prophylaxis: heparin Lines/Catheters IV Catheter Type (from Nrsg): [place] Lock Urinary Cath still in place: Yes Reason Cath still needed: other (indicate) (monitor I&O) Assessment/Plan Hospital Course assessment and plan 1. Diabetes. 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 Hypertension. - continue antihypertensives 3. Acute renal insufficiency. - continue IVF - f/u condenser cleaner recommendations. - correct electrolytes as needed - renal function slowly improving 4. BPH. - Continue on Flomax. 5. Diabetic neuropathy. - On Neurontin. 6. History of CHF. - Continue beta-james and ASA. - O2 PRN 7. Obesity. -Weight reduction was advised. Dispo/Plan: renal function improving. continue nephrology recommendations. ant icipate d/c within the next 24 to 48 hrs if medically improved. Discussed POC with Dr. Barlow Result Diagram: 11/22/18 0704 11/26/18 0442 Results 24hrs Laboratory Tests Test 11/25/18 13:50 11/25/18 17:03 11/25/18 20:13 11/26/18 02:12 Bedside Glucose 272 H 216 246 H 231 H Test 11/26/18 04:42 11/26/18 08:09 11/26/18 10:27 Sodium Level 140 Potassium Level 4.1 Chloride Level 99 Carbon Dioxide Level 32 H Anion Gap 9 Blood Urea Nitrogen 72 H Creatinine 2.45 H Est Glomerular 27 L Filtrat Rate mL/min Glucose Level 255 #H Calcium Level 9.1 Bedside Glucose 225 H 221 H Subjective 24 Hr Interval Summary Free Text/Dictation comfortable. resting during visit. Exam/Review of Systems Exam Vitals Vital Signs Date Temp Pulse Resp B/P (MAP) Pulse Ox O2 O2 Flow FiO2 Time Delivery Rate 11/26/18 65 132/63 10:45 (86) 11/26/18 98.2 16 94 08:20 11/26/18 Room Air 02:00 11/23/18 2.0 08:10 Intake and Output 11/25/18 11/25/18 11/26/18 1515:00 23:00 07:00 IntakeIntake Total 1460 ml 450 ml 900 ml OutputOutput Total 1600 ml 950 ml 1400 ml BalanceBalance -140 ml -500 ml -500 ml Exam Constitutional: alert, oriented Psych: nl mood/affect Head: normocephalic Respiratory: clear to auscultation Cardiovascular: other (Regular rate) Neurological: nl mental status, nl speech Skin: nl turgor Results Results 24hrs Laboratory Tests Test 11/25/18 13:50 11/25/18 17:03 11/25/18 20:13 11/26/18 02:12 Bedside Glucose 272 H 216 246 H 231 H Test 11/26/18 04:42 11/26/18 08:09 11/26/18 10:27 Sodium Level 140 Potassium Level 4.1 Chloride Level 99 Carbon Dioxide Level 32 H Anion Gap 9 Blood Urea Nitrogen 72 H Creatinine 2.45 H Est Glomerular 27 L Filtrat Rate mL/min Glucose Level 255 #H Calcium Level 9.1 Bedside Glucose 225 H 221 H Medications Medication Current Medications Hydralazine HCl (Apresoline) 10 mg Q4H PRN IV ELEVATED BP Last administered on 11/21/18at 11:16; Admin Dose 10 MG; Start 11/21/18 at 11:00 IV Flush (NS 3 ml) 3 ml PER PROTOCOL IV ; Start 11/21/18 at 11:30 Ondansetron HCl (Zofran Inj) 4 mg Q6H PRN IV NAUSEA/VOMITING; Start 11/21/18 at 11:30 Acetaminophen (Tylenol Tab) 650 mg Q6H PRN PO .PAIN 1-3 OR TEMP Last administered on 11/22/18at 21:28; Admin Dose 650 MG; Start 11/21/18 at 11:30 Acetaminophen/ Hydrocodone Bitart ([place] (5/325)) 1 tab Q6H PRN PO .MOD PAIN 4- 6 Last administered on 11/23/18at 10:09; Admin Dose 1 TAB; Start 11/21/18 at 11:30 Morphine Sulfate (morphine) 2 mg Q4H PRN IV .SEVERE PAIN 7-10 Last administered on 11/21/18at 21:09; Admin Dose 2 MG; Start 11/21/18 at 11:30 Heparin Sodium (Porcine) (Heparin (5000 Units/1ml)) 5,000 unit Q12 SC Last administered on 11/26/18 08:17; Admin Dose 5,000 UNIT; Start 11/21/18 at 21:00 Insulin Aspart (Novolog Insulin Pen) NOVOLOG *MILD* ALGORITHM WITH MEALS BEDTIME SC Last administered on 11/26/18 08:17; Admin Dose 3 UNIT; Start 11/21/18 at 12:00 Miscellaneous Information 1 ea NOTE XX ; Start 11/21/18 at 12:00 Glucose (Glutose) 15 gm Q15M PRN PO DECREASED GLUCOSE; Start 11/21/18 at 12:00 Glucose (Glutose) 22.5 gm Q15M PRN PO DECREASED GLUCOSE; Start 11/21/18 at 12:00 Dextrose (D50w Syringe) 25 ml Q15M PRN IV DECREASED GLUCOSE; Start 11/21/18 at 12:00 Dextrose (D50w Syringe) 50 ml Q15M PRN IV DECREASED GLUCOSE; Start 11/21/18 at 12:00 Glucagon (Glucagen) 1 mg Q15M PRN IM DECREASED GLUCOSE; Start 11/21/18 at 12:00 Glucose (Glutose) 15 gm Q15M PRN BUCCAL DECREASED GLUCOSE; Start 11/21/18 at 12:00 Albuterol (Ventolin Hfa) 2 puff Q6 PRN INH SHORTNESS OF BREATH; Start 11/21/18 at 18:00 Aspirin (Aspirin) 81 mg DAILY PO Last administered on 11/26/18at 08:15; Admin Dose 81 MG; Start 11/22/18 at 09:00 Ferrous Sulfate (Ferrous Sulfate (Ec)) 325 mg BID PO Last administered on 11/26/18 08:15; Admin Dose 325 MG; Start 11/21/18 at 21:00 Gabapentin (Neurontin) 300 mg TID PO Last administered on 11/26/18 08:16; Admin Dose 300 MG; Start 11/21/18 at 21:00 Isosorbide Mononitrate (Imdur) 30 mg DAILY PO Last administered on 11/26/18 08:16; Admin Dose 30 MG; Start 11/22/18 at 09:00 Thiamine HCl (Vitamin B1) 100 mg DAILY PO Last administered on 11/26/18at 08:13; Admin Dose 100 MG; Start 11/22/18 at 09:00 Fluticasone/ Vilanterol (Breo Ellipta 200-25 Mcg Inh) 1 inh DAILY INH Last administered on 11/26/18 08:19; Admin Dose 1 INH; Start 11/22/18 at 09:00 Metoprolol Succinate (Toprol Xl) 50 mg BID PO Last administered on 11/26/18 08:14; Admin Dose 50 MG; Start 11/21/18 at 21:00 Linagliptin (Tradjenta) 5 mg DAILY PO Last administered on 11/26/18 08:13; Admin Dose 5 MG; Start 11/21/18 at 18:00 Montelukast Sodium (Singulair) 10 mg HS PO Last administered on 11/25/18 20:16; Admin Dose 10 MG; Start 11/21/18 at 21:00 Diagnostic Test (Pha) (Accu-Chek) 1 ea AC MEALS XX Last administered on 11/24/18 17:27; Admin Dose 1 EA; Start 11/22/18 at 07:30 Diagnostic Test (Pha) (Accu-Chek) 1 ea 2 HOURS AFTER MEALS XX Last administered on 11/25/18 20:27; Admin Dose 1 EA; Start 11/21/18 at 20:05 Tiotropium [place] (Spiriva) 1 inh DAILY INH Last administered on 11/26/18 08:15; Admin Dose 1 INH; Start 11/21/18 at 19:30 Phenazopyridine HCl (Pyridium) 100 mg BID PO Last administered on 11/26/18 08:14; Admin Dose 100 MG; Start 11/21/18 at 21:30 Polyethylene Glycol (Miralax) 17 gm DAILY PO Last administered on 11/26/18 08:16; Admin Dose 17 GM; Start 11/22/18 at 10:30 Nateglinide (Starlix) 120 mg AC MEALS PO Last administered on 11/26/18 08:13; Admin Dose 120 MG; Start 11/23/18 at 07:30 Ferric Sodium Gluconate Complex 125 mg/Sodium Chloride 110 ml @ 110 mls/hr DAILY@1300 IVPB Last administered on 11/25/18 12:09; Admin Dose 110 MLS/HR; Start 11/23/18 at 13:00; Stop 11/27/18 at 13:59 Doxazosin Mesylate (Cardura) 8 mg HS PO Last administered on 11/25/18 20:16; Admin Dose 8 MG; Start 11/23/18 at 21:00 Calcitriol (Rocaltrol) 0.25 mcg QAM PO Last administered on 11/26/18 08:15; Admin Dose 0.25 MCG; Start 11/24/18 at 09:00 Magnesium Hydroxide (Milk Of Mag) 30 ml Q12 PRN PO CONSTIPATION Last administered on 11/25/18 23:13; Admin Dose 30 ML; Start 11/23/18 at 22:30 Allopurinol (Zyloprim) 100 mg BID PO Last administered on 11/26/18 08:15; Admin Dose 100 MG; Start 11/24/18 at 09:00 Insulin Glargine (Lantus) 30 units DAILY@2000 SC Last administered on 11/25/18 20:18; Admin Dose 30 UNITS; Start 11/24/18 at 20:00 Pioglitazone HCl (Actos) 30 mg DAILY PO Last administered on 11/26/18 08:14; Admin Dose 30 MG; Start 11/25/18 at 09:00 Famotidine (Pepcid) 20 mg DAILY PO Last administered on 11/26/18 08:13; Admin Dose 20 MG; Start 11/25/18 at 09:00 Finasteride (Proscar) 5 mg DAILY PO Last administered on 11/26/18 08:14; Admin Dose 5 MG; Start 11/24/18 at 13:30 BRIANDA TYLER NP Nov 26, 2018 12:05
[2018-11-26] MEDS: SOD FERRIC GLUC COMPLX 125 MG in SOD CHLORIDE 0.9% 100 ML IVPB SCH (12:06)
--- NOTE | 2018-11-26 14:24 | CONS ---
Assessment/Plan Assessment/Plan Problems: (1) Diabetes mellitus type 2 in obese Status: Chronic Comment: His sugar control had been acceptable but is now drifted up. The nursing staff and the patient both confirm these been getting extra food that was not in the original calculations for his dosing. Again the patient declines to take mealtime insulin at home. Because this will continue with a nateglinide placed insulin sensitizing drugs. And get a go ahead and increase the insulin. These note although his renal functions improving I am not at this point ready to use even a low dose of metformin. (2) Acute kidney injury Status: Acute Comment: Improving nicely with hydration. Each time we give him a fluid bolus that he has a significant drop in his serum creatinine. Continue, and now it is safe to resume angiotensin II receptor james therapy (3) Prostatic hypertrophy Status: Chronic Comment: On full dose alpha blockade and 5 alpha reductase inhibitor (4) Chronic kidney disease, stage 3 (moderate) Status: Chronic Comment: Noted. (5) Essential hypertension Status: Chronic Comment: Adequate control. Adding back in the angiotensin II receptor james. This in combination with the beta-james and the alpha blockade should cover it. We may be able to get away with discontinuing the isosorbide mononitrate (6) Vitamin D deficiency Status: Chronic Comment: Being repleted (7) COPD (chronic obstructive pulmonary disease) Status: Chronic Comment: Excellent response to standard treatment Qualifiers: COPD type: emphysema Emphysema type: panlobular Qualified Codes: J43.1 - Panlobular emphysema Consultation Date/Type/Reason Admit Date/Time Nov 21, 2018 at 09:57 Initial Consult Date 11/21/18 Type of Consult Endocrinology Reason for Consultation Diabetes mellitus type 2 with poor control and dietary variability; hypertensi on; benign prostatic hypertrophy; COPD; prerenal azotemia on top of chronic kidney disease Requesting Provider: BRIANDA TYLER NP Date/Time of Note DATE: 11/26/18 TIME: 14:18 24 HR Interval Summary Free Text/Dictation Patient reports he is doing well and is interested in going home. He is getting extra food brought in by family. Constitutional: no complaints Detailed Summary Endocrine: no complaints Exam/Review of Systems Exam Vitals Vital Signs Date Temp Pulse Resp B/P (MAP) Pulse Ox O2 O2 Flow FiO2 Time Delivery Rate 11/26/18 65 132/63 10:45 (86) 11/26/18 98.2 16 94 08:20 11/26/18 Room Air 02:00 11/23/18 2.0 08:10 Intake and Output 11/25/18 11/25/18 11/26/18 1515:00 23:00 07:00 IntakeIntake Total 1460 ml 450 ml 900 ml OutputOutput Total 1600 ml 950 ml 1400 ml BalanceBalance -140 ml -500 ml -500 ml Constitutional: alert, oriented Neck: supple, non-tender Respiratory: clear to auscultation, normal air movement Cardiovascular: regular rate and rhythm, nl pulses Gastrointestinal: soft, nl liver, spleen, non-tender Results Result Diagram: 11/22/18 0704 11/26/18 0442 Results 24hrs Laboratory Tests Test 11/25/18 17:03 11/25/18 20:13 11/26/18 02:12 11/26/18 04:42 Bedside Glucose 216 246 H 231 H Sodium Level 140 Potassium Level 4.1 Chloride Level 99 Carbon Dioxide Level 32 H Anion Gap 9 Blood Urea Nitrogen 72 H Creatinine 2.45 H Est Glomerular 27 L Filtrat Rate mL/min Glucose Level 255 #H Calcium Level 9.1 Test 11/26/18 08:09 11/26/18 10:27 11/26/18 12:05 Bedside Glucose 225 H 221 H 256 H Medications Medication Current Medications Hydralazine HCl (Apresoline) 10 mg Q4H PRN IV ELEVATED BP Last administered on 11/21/18at 11:16; Admin Dose 10 MG; Start 11/21/18 at 11:00 IV Flush (NS 3 ml) 3 ml PER PROTOCOL IV ; Start 11/21/18 at 11:30 Ondansetron HCl (Zofran Inj) 4 mg Q6H PRN IV NAUSEA/VOMITING; Start 11/21/18 at 11:30 Acetaminophen (Tylenol Tab) 650 mg Q6H PRN PO .PAIN 1-3 OR TEMP Last administered on 11/22/18at 21:28; Admin Dose 650 MG; Start 11/21/18 at 11:30 Acetaminophen/ Hydrocodone Bitart ([place] (5/325)) 1 tab Q6H PRN PO .MOD PAIN 4- 6 Last administered on 11/23/18at 10:09; Admin Dose 1 TAB; Start 11/21/18 at 11:30 Morphine Sulfate (morphine) 2 mg Q4H PRN IV .SEVERE PAIN 7-10 Last administered on 11/21/18at 21:09; Admin Dose 2 MG; Start 11/21/18 at 11:30 Heparin Sodium (Porcine) (Heparin (5000 Units/1ml)) 5,000 unit Q12 SC Last administered on 11/26/18at 08:17; Admin Dose 5,000 UNIT; Start 11/21/18 at 21:00 Insulin Aspart (Novolog Insulin Pen) NOVOLOG *MILD* ALGORITHM WITH MEALS BEDTIME SC Last administered on 11/26/18at 12:08; Admin Dose 3 UNIT; Start 11/21/18 at 12:00 Miscellaneous Information 1 ea NOTE XX ; Start 11/21/18 at 12:00 Glucose (Glutose) 15 gm Q15M PRN PO DECREASED GLUCOSE; Start 11/21/18 at 12:00 Glucose (Glutose) 22.5 gm Q15M PRN PO DECREASED GLUCOSE; Start 11/21/18 at 12:00 Dextrose (D50w Syringe) 25 ml Q15M PRN IV DECREASED GLUCOSE; Start 11/21/18 at 12:00 Dextrose (D50w Syringe) 50 ml Q15M PRN IV DECREASED GLUCOSE; Start 11/21/18 at 12:00 Glucagon (Glucagen) 1 mg Q15M PRN IM DECREASED GLUCOSE; Start 11/21/18 at 12:00 Glucose (Glutose) 15 gm Q15M PRN BUCCAL DECREASED GLUCOSE; Start 11/21/18 at 12:00 Albuterol (Ventolin Hfa) 2 puff Q6 PRN INH SHORTNESS OF BREATH; Start 11/21/18 at 18:00 Aspirin (Aspirin) 81 mg DAILY PO Last administered on 11/26/18at 08:15; Admin Dose 81 MG; Start 11/22/18 at 09:00 Ferrous Sulfate (Ferrous Sulfate (Ec)) 325 mg BID PO Last administered on 11/26/18at 08:15; Admin Dose 325 MG; Start 11/21/18 at 21:00 Gabapentin (Neurontin) 300 mg TID PO Last administered on 11/26/18at 12:06; Admin Dose 300 MG; Start 11/21/18 at 21:00 Isosorbide Mononitrate (Imdur) 30 mg DAILY PO Last administered on 11/26/18 08:16; Admin Dose 30 MG; Start 11/22/18 at 09:00 Thiamine HCl (Vitamin B1) 100 mg DAILY PO Last administered on 11/26/18 08:13; Admin Dose 100 MG; Start 11/22/18 at 09:00 Fluticasone/ Vilanterol (Breo Ellipta 200-25 Mcg Inh) 1 inh DAILY INH Last administered on 11/26/18 08:19; Admin Dose 1 INH; Start 11/22/18 at 09:00 Metoprolol Succinate (Toprol Xl) 50 mg BID PO Last administered on 11/26/18 08:14; Admin Dose 50 MG; Start 11/21/18 at 21:00 Linagliptin (Tradjenta) 5 mg DAILY PO Last administered on 11/26/18 08:13; Admin Dose 5 MG; Start 11/21/18 at 18:00 Montelukast Sodium (Singulair) 10 mg HS PO Last administered on 11/25/18 20:16; Admin Dose 10 MG; Start 11/21/18 at 21:00 Diagnostic Test (Pha) (Accu-Chek) 1 ea AC MEALS XX Last administered on 11/24/18 17:27; Admin Dose 1 EA; Start 11/22/18 at 07:30 Diagnostic Test (Pha) (Accu-Chek) 1 ea 2 HOURS AFTER MEALS XX Last administered on 11/25/18 20:27; Admin Dose 1 EA; Start 11/21/18 at 20:05 Tiotropium [place] (Spiriva) 1 inh DAILY INH Last administered on 11/26/18 08:15; Admin Dose 1 INH; Start 11/21/18 at 19:30 Phenazopyridine HCl (Pyridium) 100 mg BID PO Last administered on 11/26/18 08:14; Admin Dose 100 MG; Start 11/21/18 at 21:30 Polyethylene Glycol (Miralax) 17 gm DAILY PO Last administered on 11/26/18 08:16; Admin Dose 17 GM; Start 11/22/18 at 10:30 Nateglinide (Starlix) 120 mg AC MEALS PO Last administered on 11/26/18 12:06; Admin Dose 120 MG; Start 11/23/18 at 07:30 Ferric Sodium Gluconate Complex 125 mg/Sodium Chloride 110 ml @ 110 mls/hr DAILY@1300 IVPB Last administered on 11/26/18at 12:06; Admin Dose 110 MLS/HR; Start 11/23/18 at 13:00; Stop 11/27/18 at 13:59 Doxazosin Mesylate (Cardura) 8 mg HS PO Last administered on 11/25/18 20:16; Admin Dose 8 MG; Start 11/23/18 at 21:00 Calcitriol (Rocaltrol) 0.25 mcg QAM PO Last administered on 11/26/18at 08:15; Admin Dose 0.25 MCG; Start 11/24/18 at 09:00 Magnesium Hydroxide (Milk Of Mag) 30 ml Q12 PRN PO CONSTIPATION Last administered on 11/25/18 23:13; Admin Dose 30 ML; Start 11/23/18 at 22:30 Allopurinol (Zyloprim) 100 mg BID PO Last administered on 11/26/18 08:15; Admin Dose 100 MG; Start 11/24/18 at 09:00 Pioglitazone HCl (Actos) 30 mg DAILY PO Last administered on 11/26/18at 08:14; Admin Dose 30 MG; Start 11/25/18 at 09:00 Famotidine (Pepcid) 20 mg DAILY PO Last administered on 11/26/18at 08:13; Admin Dose 20 MG; Start 11/25/18 at 09:00 Finasteride (Proscar) 5 mg DAILY PO Last administered on 11/26/18at 08:14; Admin Dose 5 MG; Start 11/24/18 at 13:30 Insulin Glargine (Lantus) 36 units DAILY@2000 SC ; Start 11/26/18 at 20:00; Status UNV Insulin Glargine (Lantus) 6 units ONCE ONCE SC ; Start 11/26/18 at 14:30; Stop 11/26/18 at 14:31; Status UNV Lactated Ringer's 500 ml @ 500 mls/hr Q1H ONCE IV ; Start 11/26/18 at 14:30; Stop 11/26/18 at 15:29; Status UNV RENÉE BRANTLEY MD Nov 26, 2018 14:23
[2018-11-26] MEDS ORDERED: LACTATED RINGER'S 500 ML IV ONE (14:30)
[2018-11-26 14:36] VITALS: BP 148/69; PULSE 62; RESP 18
[2018-11-26] MEDS: LOSARTAN 50 MG TAB PO SCH (15:10)
[2018-11-26] MEDS ORDERED: INSULIN GLARGINE [LANTus] (100 UNITS/ML) SYG SC ONE (15:30)
[2018-11-26 19:42] VITALS: BP 137/64; PULSE 65; RESP 20
[2018-11-26] MEDS ORDERED: INSULIN GLARGINE [LANTus] (100 UNITS/ML) SYG SC SCH (20:00)
[2018-11-26] MEDS: ACETAMINOPHEN 325 MG TAB PO PRN (20:18)
[2018-11-26] MEDS: DOXAZOSIN 4 MG TAB PO SCH (20:19)
[2018-11-26] MEDS: MONTELUKAST 10 MG TAB PO SCH (20:19)
[2018-11-27 02:15] VITALS: BP 135/64; PULSE 64; RESP 18
[2018-11-27] MEDS: ACCU-CHEK XX SCH ×3 (07:30→11:30)
[2018-11-27 08:00] VITALS: BP 137/63; PULSE 66; RESP 18
[2018-11-27] MEDS: POLYETHYLENE GLYCOL 17 GM PACKET PO SCH (08:22)
[2018-11-27] MEDS: PHENAZOPYRIDINE 100 MG TAB PO SCH (08:22)
[2018-11-27] MEDS: MAGNESIUM HYDROXIDE 30ML CUP PO PRN (08:22)
[2018-11-27] MEDS: LINAGLIPTIN 5 MG TABLET PO SCH (08:23)
[2018-11-27] MEDS: FINASTERIDE 5 MG TAB PO SCH (08:23)
[2018-11-27] MEDS: NATEGLINIDE 120 MG TAB PO SCH ×2 (08:23→12:36)
[2018-11-27] MEDS: PIOGLITAZONE 15 MG TAB PO SCH (08:23)
[2018-11-27] MEDS: CALCITRIOL 0.25 MCG CAP PO SCH (08:23)
[2018-11-27] MEDS: GABAPENTIN 300 MG CAP PO SCH (08:23)
[2018-11-27] MEDS: THIAMINE 100 MG TAB PO SCH (08:24)
[2018-11-27] MEDS: ASPIRIN 81 MG TAB PO SCH (08:24)
[2018-11-27] MEDS: FAMOTIDINE 20 MG TAB PO SCH (08:24)
[2018-11-27] MEDS: FERROUS SULFATE (EC) 325 MG TAB PO SCH (08:24)
[2018-11-27] MEDS: METOPROLOL (XL) 50 MG TAB PO SCH (08:28)
[2018-11-27] MEDS: LOSARTAN 50 MG TAB PO SCH (08:28)
[2018-11-27] MEDS: INSULIN ASPART [NOVOLOG] 3 ML PEN SC SCH ×2 (08:32→12:33)
[2018-11-27] MEDS: HEPARIN 5,000 UNIT/1 ML VIAL SC SCH (08:34)
[2018-11-27] MEDS ORDERED: ALLOPURINOL 100 MG TAB PO SCH (09:00)
--- NOTE | 2018-11-27 10:25 | CONS ---
Assessment/Plan Assessment/Plan Problems: (1) Diabetes mellitus type 2 in obese Status: Chronic Comment: His sugars have continued to rise. However his renal function is returning to normal nicely. This allows us to use metformin in a dose adjusted fashion. I will get him started on that which I have a suspicion will help a bit with his sugars (2) Essential hypertension Status: Chronic Comment: Good control on a simplified regimen go to full dose angiotensin II receptor james. Please note with the resumption of the A2 receptor james that the kidney function has continued to improve (3) Prostatic hypertrophy Status: Chronic Comment: Stable on alpha blockade and 5 alpha reductase inhibitor combination (4) Chronic kidney disease, stage 3 (moderate) Status: Chronic Comment: Returning to baseline (5) Acute kidney injury Status: Acute Comment: Resolving with correction of the volume status (6) Vitamin D deficiency Status: Chronic Comment: Being repleted (7) COPD (chronic obstructive pulmonary disease) Status: Chronic Comment: Good control with full dose therapy Qualifiers: COPD type: emphysema Emphysema type: panlobular Qualified Codes: J43.1 - Panlobular emphysema Consultation Date/Type/Reason Admit Date/Time Nov 21, 2018 at 09:57 Initial Consult Date 11/21/18 Type of Consult Endocrinology Reason for Consultation Diabetes mellitus type 2 with complications; chronic kidney disease stage III; dehydration with acute kidney injury; hypertension; asthma COPD overlap; dietary noncompliance Requesting Provider: BRIANDA TYLER NP Date/Time of Note DATE: 11/27/18 TIME: 10:23 24 HR Interval Summary Free Text/Dictation Patient reports that he is getting extra food from home. Please note that there have been some need to correct behavior between him and the female nursing staff Constitutional: no complaints Detailed Summary Respiratory: no complaints Cardiovascular: no complaints Gastrointestinal: no complaints Exam/Review of Systems Exam Vitals Vital Signs Date Temp Pulse Resp B/P (MAP) Pulse Ox O2 O2 Flow FiO2 Time Delivery Rate 11/27/18 97.9 66 18 137/63 96 08:00 (87) 11/26/18 Room Air 02:00 11/23/18 2.0 08:10 Intake and Output 11/26/18 11/26/18 11/27/18 1515:00 23:00 07:00 IntakeIntake Total 710 ml 2000 ml OutputOutput Total 500 ml 850 ml BalanceBalance 210 ml 1150 ml Constitutional: alert, oriented Respiratory: clear to auscultation, normal air movement Cardiovascular: regular rate and rhythm, nl pulses Gastrointestinal: soft, nl liver, spleen, non-tender Results Result Diagram: 11/27/18 0433 Results 24hrs Laboratory Tests Test 11/26/18 10:27 11/26/18 12:05 11/26/18 14:26 11/26/18 16:17 Bedside Glucose 221 H 256 H 273 H 248 H Test 11/26/18 17:06 11/26/18 20:16 11/27/18 02:12 11/27/18 04:33 Bedside Glucose 241 H 284 H 233 H Sodium Level 140 Potassium Level 4.3 Chloride Level 99 Carbon Dioxide Level 33 H Anion Gap 8 Blood Urea Nitrogen 70 H Creatinine 2.19 H Est Glomerular 31 L Filtrat Rate mL/min Glucose Level 264 H Uric Acid 5.2 Calcium Level 9.5 Test 11/27/18 08:21 11/27/18 10:18 Bedside Glucose 311 H 304 H Medications Medication Current Medications Hydralazine HCl (Apresoline) 10 mg Q4H PRN IV ELEVATED BP Last administered on 11/21/18at 11:16; Admin Dose 10 MG; Start 11/21/18 at 11:00 IV Flush (NS 3 ml) 3 ml PER PROTOCOL IV ; Start 11/21/18 at 11:30 Ondansetron HCl (Zofran Inj) 4 mg Q6H PRN IV NAUSEA/VOMITING; Start 11/21/18 at 11:30 Acetaminophen (Tylenol Tab) 650 mg Q6H PRN PO .PAIN 1-3 OR TEMP Last administered on 11/26/18at 20:18; Admin Dose 650 MG; Start 11/21/18 at 11:30 Acetaminophen/ Hydrocodone Bitart ([place] (5/325)) 1 tab Q6H PRN PO .MOD PAIN 4- 6 Last administered on 11/23/18at 10:09; Admin Dose 1 TAB; Start 11/21/18 at 11:30 Morphine Sulfate (morphine) 2 mg Q4H PRN IV .SEVERE PAIN 7-10 Last administered on 11/21/18at 21:09; Admin Dose 2 MG; Start 11/21/18 at 11:30 Heparin Sodium (Porcine) (Heparin (5000 Units/1ml)) 5,000 unit Q12 SC Last administered on 11/27/18at 08:34; Admin Dose 5,000 UNIT; Start 11/21/18 at 21:00 Insulin Aspart (Novolog Insulin Pen) NOVOLOG *MILD* ALGORITHM WITH MEALS BEDTIME SC Last administered on 11/27/18at 08:32; Admin Dose 5 UNIT; Start 11/21/18 at 12:00 Miscellaneous Information 1 ea NOTE XX ; Start 11/21/18 at 12:00 Glucose (Glutose) 15 gm Q15M PRN PO DECREASED GLUCOSE; Start 11/21/18 at 12:00 Glucose (Glutose) 22.5 gm Q15M PRN PO DECREASED GLUCOSE; Start 11/21/18 at 12:00 Dextrose (D50w Syringe) 25 ml Q15M PRN IV DECREASED GLUCOSE; Start 11/21/18 at 12:00 Dextrose (D50w Syringe) 50 ml Q15M PRN IV DECREASED GLUCOSE; Start 11/21/18 at 12:00 Glucagon (Glucagen) 1 mg Q15M PRN IM DECREASED GLUCOSE; Start 11/21/18 at 12:00 Glucose (Glutose) 15 gm Q15M PRN BUCCAL DECREASED GLUCOSE; Start 11/21/18 at 12:00 Albuterol (Ventolin Hfa) 2 puff Q6 PRN INH SHORTNESS OF BREATH; Start 11/21/18 at 18:00 Aspirin (Aspirin) 81 mg DAILY PO Last administered on 11/27/18at 08:24; Admin Dose 81 MG; Start 11/22/18 at 09:00 Ferrous Sulfate (Ferrous Sulfate (Ec)) 325 mg BID PO Last administered on 11/27/18at 08:24; Admin Dose 325 MG; Start 11/21/18 at 21:00 Gabapentin (Neurontin) 300 mg TID PO Last administered on 11/27/18at 08:23; Admin Dose 300 MG; Start 11/21/18 at 21:00 Thiamine HCl (Vitamin B1) 100 mg DAILY PO Last administered on 11/27/18at 08:24; Admin Dose 100 MG; Start 11/22/18 at 09:00 Fluticasone/ Vilanterol (Breo Ellipta 200-25 Mcg Inh) 1 inh DAILY INH Last administered on 11/26/18at 08:19; Admin Dose 1 INH; Start 11/22/18 at 09:00 Metoprolol Succinate (Toprol Xl) 50 mg BID PO Last administered on 11/27/18 08:28; Admin Dose 50 MG; Start 11/21/18 at 21:00 Linagliptin (Tradjenta) 5 mg DAILY PO Last administered on 11/27/18 08:23; Admin Dose 5 MG; Start 11/21/18 at 18:00 Montelukast Sodium (Singulair) 10 mg HS PO Last administered on 11/26/18 20:19; Admin Dose 10 MG; Start 11/21/18 at 21:00 Diagnostic Test (Pha) (Accu-Chek) 1 ea AC MEALS XX Last administered on 11/24/18 17:27; Admin Dose 1 EA; Start 11/22/18 at 07:30 Diagnostic Test (Pha) (Accu-Chek) 1 ea 2 HOURS AFTER MEALS XX Last administered on 11/26/18 20:29; Admin Dose 1 EA; Start 11/21/18 at 20:05 Tiotropium [place] (Spiriva) 1 inh DAILY INH Last administered on 11/26/18 08:15; Admin Dose 1 INH; Start 11/21/18 at 19:30 Phenazopyridine HCl (Pyridium) 100 mg BID PO Last administered on 11/27/18 08:22; Admin Dose 100 MG; Start 11/21/18 at 21:30 Polyethylene Glycol (Miralax) 17 gm DAILY PO Last administered on 11/27/18 08:22; Admin Dose 17 GM; Start 11/22/18 at 10:30 Nateglinide (Starlix) 120 mg AC MEALS PO Last administered on 11/27/18 08:23; Admin Dose 120 MG; Start 11/23/18 at 07:30 Ferric Sodium Gluconate Complex 125 mg/Sodium Chloride 110 ml @ 110 mls/hr DAILY@1300 IVPB Last administered on 11/26/18 12:06; Admin Dose 110 MLS/HR; Start 11/23/18 at 13:00; Stop 11/27/18 at 13:59 Doxazosin Mesylate (Cardura) 8 mg HS PO Last administered on 11/26/18 20:19; Admin Dose 8 MG; Start 11/23/18 at 21:00 Calcitriol (Rocaltrol) 0.25 mcg QAM PO Last administered on 11/27/18 08:23; Admin Dose 0.25 MCG; Start 11/24/18 at 09:00 Magnesium Hydroxide (Milk Of Mag) 30 ml Q12 PRN PO CONSTIPATION Last administered on 11/27/18 08:22; Admin Dose 30 ML; Start 11/23/18 at 22:30 Pioglitazone HCl (Actos) 30 mg DAILY PO Last administered on 11/27/18 08:23; Admin Dose 30 MG; Start 11/25/18 at 09:00 Famotidine (Pepcid) 20 mg DAILY PO Last administered on 11/27/18 08:24; Admin Dose 20 MG; Start 11/25/18 at 09:00 Finasteride (Proscar) 5 mg DAILY PO Last administered on 11/27/18 08:23; Admin Dose 5 MG; Start 11/24/18 at 13:30 Allopurinol (Zyloprim) 300 mg QAM PO Last administered on 11/27/18 08:24; Admin Dose 300 MG; Start 11/27/18 at 09:00 Losartan Potassium (Cozaar) 50 mg DAILY PO Last administered on 11/27/18 08:28; Admin Dose 50 MG; Start 11/26/18 at 14:30 Lactated Ringer's 500 ml @ 500 mls/hr Q1H ONCE IV ; Start 11/27/18 at 10:30; Stop 11/27/18 at 11:29; Status UNV Metformin HCl (Glucophage) 500 mg WITH DINNER PO ; Start 11/27/18 at 18:05; Status UNV Metformin HCl (Glucophage) 500 mg ONCE ONCE PO ; Start 11/27/18 at 10:30; Stop 11/27/18 at 10:31; Status UNV Insulin Glargine (Lantus) 40 units DAILY@2000 SC ; Start 11/27/18 at 20:00; Status UNV Insulin Glargine (Lantus) 4 units ONCE ONCE SC ; Start 11/27/18 at 10:30; Stop 11/27/18 at 10:31; Status UNV RENÉE BRANTLEY MD Nov 27, 2018 10:25
[2018-11-27] MEDS ORDERED: INSULIN GLARGINE [LANTus] (100 UNITS/ML) SYG SC ONE (10:30)
[2018-11-27] MEDS ORDERED: metFORMIN 500 MG TAB PO ONE (10:30)
[2018-11-27] MEDS ORDERED: LACTATED RINGER'S 500 ML IV ONE (10:30)
[2018-11-27] MEDS ORDERED: NATE120T PO (11:24)
[2018-11-27] MEDS ORDERED: PIOG15TA12 PO (11:24)
[2018-11-27] MEDS ORDERED: CALC0.2511 PO (11:24)
[2018-11-27] MEDS ORDERED: METF-849 PO (11:24)
[2018-11-27] MEDS ORDERED: DOXA4TAB2 PO (11:24)
[2018-11-27] MEDS ORDERED: INSU100I33 SC (11:24)
[2018-11-27] MEDS ORDERED: LOSA50TA2 PO (11:24)
[2018-11-27] MEDS ORDERED: LINA5TAB PO (11:24)
[2018-11-27] MEDS ORDERED: FER325 PO (11:24)
[2018-11-27] MEDS ORDERED: ALLO100T PO (11:24)
[2018-11-27] MEDS ORDERED: MONT10TA24 PO (11:24)
[2018-11-27] MEDS ORDERED: FINA5TAB4 PO (11:24)
[2018-11-27] MEDS ORDERED: TIOT18CA INH (11:24)
[2018-11-27] MEDS ORDERED: METO-319 PO (11:24)
--- NOTE | 2018-11-27 11:27 | PDOCDIS ---
Discharge Instructions DIAGNOSIS Discharge Diagnosis 1. Diabetes. - A1c.: 13.3 2. Hypertension. 3. Acute renal insufficiency. 4. BPH. 5. Diabetic neuropathy. 6. History of CHF. 7. Obesity. CONDITION [id number] Patient Condition: [id number] Stable HOME CARE INSTRUCTIONS: Hronz1Lm Diet Instructions: [id number] Low Fat /Cholesterol [id number] Special Diet: Sqtkv4c carbohydrate controlled FOLLOW UP/APPOINTMENTS Follow-up Plan Follow up with Dr. Roderick Mariano (Stock House Worker) in one week Office Address Roderick Mariano M.D., [facility] [address] [facility] [address] [place] [address] Office Follow up with Dr. Ho Villa (Movie Writer) in one week Office Address [address] [facility], [address] [address] Office BRIANDA TYLER NP Nov 27, 2018 11:27
[2018-11-27] MEDS ORDERED: metFORMIN 500 MG TAB PO SCH (18:05)
--- NOTE | 2018-11-27 19:11 | CONS ---
Assessment/Plan Assessment/Plan Assessment/Plan (Daily) 1. acute kidney injury on CKD IV 2. 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 h/o CHF 6. H/o DM II Plan: BUN/Cr improved to 70/2.19, other electrolyte stable Continue Cardura 4 mg pO QHS, Metoprolol 50mg BID, Nifedipine XL and Hydralazine stopped yesterday due to low BP , IV hydralazine prn if BP continues to rise again then will add Hydralazine 25 mg pO TID Renal US showed The right kidney measures 13.5 cm. There is mild right hydronephrosis.The left kidney measures 15.5 cm., Bilateral Renal cysts ECHO showed EF 60%, normal LVSF, Unable to assess Diastolic function due to atrial fibrillation calcitriol 0.25 mcg pO Q am, Uric acid 9.4- on allopurinol 100mg pO BID will follow up Consultation Date/Type/Reason Admit Date/Time Nov 21, 2018 at 09:57 Initial Consult Date 11/21/18 Type of Consult NEPHROLOGY Requesting Provider: BRIANDA TYLER NP Date/Time of Note DATE: 11/27/18 TIME: 19:11 Exam/Review of Systems Exam Vitals Vital Signs Date Temp Pulse Resp B/P (MAP) Pulse Ox O2 O2 Flow FiO2 Time Delivery Rate 11/27/18 97.9 66 18 137/63 96 08:00 (87) 11/26/18 Room Air 02:00 11/23/18 2.0 08:10 Intake and Output 11/26/18 11/26/18 11/27/18 1515:00 23:00 07:00 IntakeIntake Total 710 ml 2000 ml OutputOutput Total 500 ml 850 ml BalanceBalance 210 ml 1150 ml Results Result Diagram: 11/27/18 0433 Results 24hrs Laboratory Tests Test 11/26/18 20:16 11/27/18 02:12 11/27/18 04:33 11/27/18 08:21 Bedside Glucose 284 H 233 H 311 H Sodium Level 140 Potassium Level 4.3 Chloride Level 99 Carbon Dioxide Level 33 H Anion Gap 8 Blood Urea Nitrogen 70 H Creatinine 2.19 H Est Glomerular 31 L Filtrat Rate mL/min Glucose Level 264 H Uric Acid 5.2 Calcium Level 9.5 Test 11/27/18 10:18 11/27/18 12:28 Bedside Glucose 304 H 258 H BON GUERRERO MD Nov 27, 2018 19:11
[2018-11-27] MEDS ORDERED: INSULIN GLARGINE [LANTus] (100 UNITS/ML) SYG SC SCH (20:00)
[2018-11-28] MEDS ORDERED: LOSARTAN 50 MG TAB PO SCH (09:00)
--- NOTE | 2018-12-01 13:13 | DS ---
Date/Time of Note Date/Time of Note DATE: 12/01/18 TIME: 13:12 Discharge Summary Admission/Discharge Info Admit Date/Time Nov 21, 2018 at 09:57 Discharge Date/Time Nov 27, 2018 at 14:30 Discharge Diagnosis 1. Diabetes. - A1c.: 13.3 2. Hypertension. 3. Acute renal insufficiency. 4. BPH. 5. Diabetic neuropathy. 6. History of CHF. 7. Obesity. Patient Condition: Stable Hospital Course This is a 63-year-old male with history of diabetes, hypertension, CHF, neur opathy, BPH, who came to the hospital due to reports of hyperglycemia and headache. Patient reports that his blood sugar at home has been in the 400-500s for the past 3 days. He does report compliance with his home medication but states that his blood glucose has still been elevated. He also reported having headache that starts in the back of his head but goes to the front of his head. Denies any motor deficit or any slurred speech or any chest pain or shortness of breath. Patient did go to [facility] initially and was also found to have acute renal failure. Due to insurance issues he was brought to [facility] in hospital for further evaluation. Initial blood pressure was taken that was elevated at 181/81. Per labs creatinine at 4.02. BUN of 71. Blood glucose was elevated at 305. Patient denies any dysuria or oliguria or anuria. Patient was continued on antihypertensives. We did adjust it and his headache did resolve. He was noted with an A1c of 13.3. He was seen by endocri nologist who did manage his diabetic regimen. For his acute renal insufficiency he was continued on IV fluids. We avoided nephrotoxic medications and he was seen by gravel hauler. He was optimized medically. We did monitor his fluid level. Renal ultrasound was also obtained that showed mild right hydronephrosis but no nephrolithiasis. His renal function did improve with IV fluids. As for his blood glucose it was hard to control due to reportedly patient eating more than his prescribed diet. He was advised for compliance. He was advised outpatient follow-up with field crop harvest worker for further monitoring for his diabetes. Is otherwise otherwise medically with Flomax for BPH. He was resumed on Neurontin for his diabetic neuropathy. We also resumed him on his cardiac medications for his history of CHF. He was advised for weight reduction for his obesity. Plan of care was discussed with the patient and he verbalized understanding. On the day of discharge patient was in stable condition Discussed POC with Dr. Tejada Home Meds Active Scripts Insulin Glargine,Hum.rec.anlog (Basaglar Kwikpen U-100) 100 Unit/1 Ml Insuln.pen, 40 UNIT SC QHS, #2 EA Prov:BRIANDA TYLER NP 11/27/18 Finasteride* (Finasteride*) 5 Mg Tablet, 5 MG PO DAILY, #30 TAB Prov:REGIDOBRIANDA Szymanski NP 11/27/18 Allopurinol* (Allopurinol*) 100 Mg Tablet, 300 MG PO QAM, #30 TAB Prov:BRIANDA TYLER NP 11/27/18 Calcitriol* (Calcitriol*) 0.25 Mcg Capsule, 0.25 MCG PO QAM, #30 CAP Prov:BRIANDA TYLER NP 11/27/18 Pioglitazone Hcl* (Actos*) 15 Mg Tablet, 30 MG PO DAILY, #30 TAB Prov:REGBRIANDA FITZGERALD NP 11/27/18 Nateglinide* (Nateglinide*) 120 Mg Tablet, 120 MG PO AC MEALS, #90 TAB Prov:BRIANDA TYLER NP 11/27/18 Metformin* (Glucophage*) 500 Mg Tab, 500 MG PO WITH DINNER, #30 TAB Prov:REGBRIANDA FITZGERALD NP 11/27/18 Linagliptin (TRADJENTA) 5 Mg Tablet, 5 MG PO DAILY, #30 TAB Prov:BRIANDA TYLER NP 11/27/18 Montelukast Sodium* (Montelukast Sodium*) 10 Mg Tablet, 10 MG PO HS, #30 TAB Prov:REGIDOBRIANDA Szymanski NP 11/27/18 Metoprolol Succinate* (Toprol XL*) 50 Mg Tab.er.24h, 50 MG PO BID, #60 TAB Prov:BRIANDA TYLER NP 11/27/18 Losartan Potassium* (Cozaar*) 50 Mg Tablet, 100 MG PO DAILY, #30 TAB Prov:BRIANDA TYLER NP 11/27/18 Doxazosin Mesylate* (Cardura*) 4 Mg Tablet, 8 MG PO HS, #30 TAB Prov:BRIANDA TYLER NP 11/27/18 Tiotropium [place]* (Spiriva*) 18 Mcg Cap.w.dev, 1 INH INH DAILY, #30 TAB Prov:BRIANDA TYLER NP 11/27/18 Ferrous Sulfate* (Ferrous Sulfate*) 325 Mg Tabec, 325 MG PO BID for 30 Days, #60 TAB Prov:BRIANDA TYLER NP 11/27/18 Docusate Sodium (Dok) 100 Mg Capsule, 100 MG PO BID for 30 Days, #60 CAP 3 Refills Prov:MOI HAIRSTON 09/18/17 Thiamine* (Vitamin B-1*) 100 Mg Tablet, 100 MG PO DAILY for 30 Days, #30 TAB Prov:TENISHA MENDEZ MD 04/04/17 Salmeterol Xinaf/Fluticasone* (Advair*) 250-50 Diskus Inhaler, 1 INH INH BID, #1 INH Prov:BRIANDA TYLER NP 02/18/17 Albuterol Sulfate* (Proair HFA*) 8.5 Gm Hfa.aer.ad, 2 PUFF INH Q6 for SHORTNESS OF BREATH for 14 Days, #1 INHALER Prov:BRIANDA TYLER NP 02/18/17 Gabapentin* (Gabapentin*) 300 Mg Capsule, 300 MG PO TID for 30 Days, CAP Prov:NILES AYALA NP 02/12/16 Aspirin (Aspirin) 81 Mg Chew, 81 MG PO DAILY for 30 Days, TAB Prov:NILES AYALA NP 06/20/15 Reported Medications Polyethylene Glycol* (Miralax*) 17 Gm Powd.pack, 17 GM PO DAILY, #30 PACKET 08/22/17 Docusate Sodium* (Colace*) 100 Mg Capsule, 100 MG PO DAILY, #30 CAP 03/29/17 Discontinued Reported Medications Potassium Chloride (Klor-Con M20) 20 Meq Tab.prt.sr, 20 MEQ PO DAILY 08/22/17 Carvedilol* (Carvedilol*) 6.25 Mg Tablet, 6.25 MG PO BID, #60 TAB 08/22/17 Tamsulosin Hcl* (Tamsulosin Hcl*) 0.4 Mg Cap.er.24h, 0.4 MG PO HS, CAP 03/29/17 Losartan Potassium* (Losartan Potassium*) 100 Mg Tablet, 100 MG PO DAILY, TAB 03/29/17 Discontinued Scripts Metolazone* (Metolazone*) 2.5 Mg Tablet, 2.5 MG PO DAILY, #30 TAB 2 Refills Prov:JERMAINE TEJADA S. 02/04/18 Isosorbide Mononitrate* (Isosorbide Mononitrate*) 30 Mg Tab.er.24h, 30 MG PO DAILY, #30 2 Refills Prov:KEVIN TEJADAP S. 02/04/18 Spironolactone* (Aldactone*) 25 Mg Tablet, 25 MG PO DAILY, #30 TAB 2 Refills Prov:KEVIN TEJADAP S. 02/04/18 Insulin Glargine* (Lantus*) 100 Unit/Ml Soln, 25 UNIT SC QHS for 30 Days, #1 BOX 1 Refill Prov:MOI HAIRSTON 09/18/17 Nifedipine (Procardia Xl) 90 Mg Tab.er.24, 90 MG PO DAILY for 30 Days, #30 TAB 2 Refills Prov:MOI HAIRSTON 09/18/17 Furosemide* (Furosemide*) 40 Mg Tablet, 40 MG PO BID DIURETICS for 30 Days, #60 TAB Prov:MOI HAIRSTON 09/06/17 Insulin Glargine* (Lantus*) 100 Unit/Ml Soln, 30 UNIT SC QHS for 10 Days, #1 BOTTLE 1 Refill may interchange; solostar syringe/ needles as needed Prov:TENISHA MENDEZ MD 06/20/17 Insulin Aspart* (Novolog Insulin Pen*) 100 Unit/Ml Soln, 10 UNIT SC WITH MEALS for 10 Days, #1 BOTTLE 10 days supply; september interchange. strips/lancets as needed Prov:TENISHA MENDEZ MD 06/20/17 Acetaminophen* (Tylenol*) 325 Mg Tablet, 650 MG PO Q6H PRN for PAIN LEVEL 1-3 OR FEVER for 1 Day, #1 TAB Prov:TENISHA MENDEZ MD 06/20/17 [Nicotine (14 Mg/24 Hr)] 1 PATCH PATCH No Conflict Check, 1 PATCH TRANSDERM DOMONIQUE LY for 10 Days, #20 Prov:TENISHA MENDEZ MD 04/04/17 Nifedipine (Procardia Xl) 90 Mg Tab.er.24, 90 MG PO DAILY, #30 TAB Prov:BRIANDA TYLER NP 02/18/17 Follow-up Plan Follow up with Dr. Roderick Mariano (Water Manager) in one week Office Address Roderick Mariano M.D., [facility] [address] [facility] [address] [place] [address] Office Follow up with Dr. Ho Villa (Information Systems Director) in one week Office Address [address] [facility], [address] [address] Office Primary Care Provider BRIANDA TYLER NP Dec 01, 2018 13:13
== END 2018-11-27 14:30 | disposition home or self-care (01) | DRG 683 ==
LOC: MERGE 01:45 → PP2 09:57
PROVIDERS: ADMIT Family Medicine; ATTEND Family Medicine
DX: N17.9 Acute kidney failure, unspecified (principal); I13.0 Hypertensive heart and chronic kidney disease with heart failure and stage 1 through stage 4 chronic kidney disease, or unspecified chronic kidney disease; E11.65 Type 2 diabetes mellitus with hyperglycemia; N18.4 Chronic kidney disease, stage 4 (severe); E11.22 Type 2 diabetes mellitus with diabetic chronic kidney disease; E11.40 Type 2 diabetes mellitus with diabetic neuropathy, unspecified; I50.9 Heart failure, unspecified; E66.9 Obesity, unspecified; N40.0 Benign prostatic hyperplasia without lower urinary tract symptoms; E11.21 Type 2 diabetes mellitus with diabetic nephropathy; D50.9 Iron deficiency anemia, unspecified; D63.1 Anemia in chronic kidney disease; E55.9 Vitamin D deficiency, unspecified; J44.9 Chronic obstructive pulmonary disease, unspecified; Z79.4 Long term (current) use of insulin; Z87.891 Personal history of nicotine dependence
CPT/HCPCS: 76775; 80048; 80053; 80061; 82306; 82550; 82652; 82728; 82962; 83036; 83540; 83735; 84100; 84436; 84443; 84479; 84560; 85025; 87081; 93306; 97110; 97116; 97161; 97530; J0360; J1644; J1815; J2270; J2916; J7030; J7120